=== PATIENT | female | born 1940 | race Caucasian/White ===

== ENCOUNTER 2022-02-25 12:48 | Outpatient (CLI) | payer OTHER, MEDICARE, SELFPAY ==
--- NOTE | 2022-02-25 13:14 | XRR_ITS ---
PROCEDURE INFORMATION: Exam: XR Lumbosacral Spine Exam date and time: 02/25/2022 1:21 PM Age: 81 years old Clinical indication: Pain; Dorslagia; Prior surgery; Surgery type: Back, hips, gb; Additional info: Dorsalgia/chronic back pain TECHNIQUE: Imaging protocol: Radiologic exam of the lumbosacral spine. Views: 4 or 5 views. COMPARISON: CR XR KUB [id number] 05/15/2015 7:46 AM FINDINGS: Bones/joints: There is generalized osteopenia and osteoarthritis. No acute fracture. There is wedge compression fracture involving the T12 vertebral body with kyphoplasty. The superior endplate of the L1 vertebral body also shows a compression fracture. Intervertebral disc space narrowing is present throughout the lumbar spine. Kyphoplasty is seen in the bilateral sacral bones. Incompletely visualized arthroplasty is seen in the bilateral hips. Dorsolumbar levoscoliosis Pradhan angle 15 degrees T11-L3 Soft tissues: Unremarkable. XR/XR lumbar spine min 4V [id number] IMPRESSION: 1. Severe osteopenia and osteoarthritis. 2. Wedge compression fracture T12 vertebral body with kyphoplasty . 3. Compression fracture superior endplate L1. 4. Kyphoplasty bilateral sacral bones. 5. Metallic arthroplasty bilateral hips incompletely visible 6. Dorsolumbar levoscoliosis Pradhan angle 15 degrees
--- NOTE | 2022-02-25 13:14 | XR_ITS ---
WS: [id number] XR thoracic spine 2V [id number] REASON FOR EXAM: CHRONIC BACK PAIN FINDINGS: Relatively normal thoracic spine alignment in the lateral and AP views. Old superior endplate compression deformity of L1. Wedge-shaped compression deformity of T12 with previous vertebral plasty. Mild compression deformity of the superior endplate of T8 and T4. Unknown chronicity. The intervertebral disc spaces from T1 to T11 are relatively well-preserved. XR/XR thoracic spine 2V [id number] IMPRESSION: Thoracic spine compression deformities as above.
== END 2022-02-25 12:49 | disposition home or self-care (01) ==
LOC: RAD 12:57
PROVIDERS: PCP Nurse Practitioner Family; Visit Provider Nurse Practitioner Family
DX: G89.29 Other chronic pain (principal); S22.089A Unspecified fracture of T11-T12 vertebra, initial encounter for closed fracture; M85.88 Other specified disorders of bone density and structure, other site; S32.019A Unspecified fracture of first lumbar vertebra, initial encounter for closed fracture; Z96.643 Presence of artificial hip joint, bilateral; X58.XXXA Exposure to other specified factors, initial encounter
CPT/HCPCS: 72070; 72110

== ENCOUNTER → 2022-04-30 13:28 | Outpatient (BNVA) | payer OTHER, SELFPAY | PROVIDERS: PCP Nurse Practitioner Family; Visit Provider Orthopaedic Surgery | DX: M48.062 Spinal stenosis, lumbar region with neurogenic claudication (principal); M79.643 Pain in unspecified hand; W19.XXXA Unspecified fall, initial encounter | CPT/HCPCS: 73130 ==

== ENCOUNTER 2022-05-10 15:06 | Outpatient (CLI) | payer MEDICARE, SELFPAY ==
--- NOTE | 2022-05-10 15:18 | XRR_ITS ---
PROCEDURE INFORMATION: Exam: XR Right Hand Exam date and time: 05/10/2022 3:22 PM Age: 81 years old Clinical indication: Injury or trauma; Fall; Blunt trauma (contusions or hematomas); Injury details: History--fell at home over 3 weeks ago. Pain since when she uses right hand; Prior surgery; Surgery type: Ganglion; Additional info: Fell at home and injured right hand TECHNIQUE: Imaging protocol: Radiologic exam of the Right hand. Views: 3 or more views. COMPARISON: CR XR hand RT min 3V* [id number] 04/30/2022 1:29 PM FINDINGS: Bones/joints: There is osteoarthritis seen with narrowing of the interphalangeal articulations of multiple digits. No acute bony abnormalities seen. Soft tissues: Normal. XR/XR hand RT min 3V* [id number] IMPRESSION: 1. Moderate osteoarthritis 2. Otherwise No acute bone abnormality
== END 2022-05-10 15:07 | disposition home or self-care (01) ==
LOC: RAD 15:12
PROVIDERS: PCP Nurse Practitioner Family; Visit Provider Nurse Practitioner Family
DX: S69.91XA Unspecified injury of right wrist, hand and finger(s), initial encounter (principal); W19.XXXA Unspecified fall, initial encounter; M19.041 Primary osteoarthritis, right hand
CPT/HCPCS: 73130

== ENCOUNTER 2022-05-16 06:00 | Outpatient (RCR) | payer MEDICARE, SELFPAY | END 2022-05-21 14:52 | disposition home or self-care (01) | LOC: SOT 06:00 | PROVIDERS: PCP Nurse Practitioner Family; Visit Provider Nurse Practitioner Family | DX: M48.00 Spinal stenosis, site unspecified (principal) | CPT/HCPCS: 97167 ==

== ENCOUNTER 2022-07-03 11:48 | Outpatient (CLI) | payer MEDICARE, SELFPAY ==
--- NOTE | 2022-07-03 11:15 | MR_ITS ---
WS: [id number] MRI LUMBAR SPINE NONCONTRAST TECHNIQUE: Sagittal T1, T2 and STIR imaging. Axial T1 and T2 imaging. CLINICAL INFORMATION: back pain, hx of previous back surgeries COMPARISON: MRI 2008 FINDINGS: Mild lumbar curve. No acute compression. Chronic anterior wedging at T12 with prior vertebr oplasty changes. Slight anterolisthesis T11 on T12. Disc bulging at T11-T12 with slight indentation o n the lower thoracic cord and mild central canal stenosis. Moderate bilateral foraminal narrowing. Mild central canal stenosis in the cervical spinal ultrasound applications specialist imaging at C4-C5, C5-C6 and C6-C7. L1-L2: Mild disc bulging with slight effacement of ventral thecal sac. Mild RIGHT and no significant LEFT foraminal narrowing. Slight narrowing of the RIGHT subarticular recess. Mild facet arthropathy. L2-L3: Disc osteophyte complex with endplate ridging. Mild to moderate central canal stenosis. Imping ement traversing L3 nerve roots bilaterally. Mild facet arthropathy. Moderate RIGHT and mild LEFT for aminal narrowing. L3-L4: Disc bulging with a shallow central disc protrusion and impingement on the LEFT subarticular r ecess. Moderate to severe central canal stenosis. Moderate facet arthropathy. LEFT foraminal protrusi on with moderate LEFT and mild RIGHT foraminal narrowing. L4-L5: Disc osteophyte complex endplate ridging. Mild central canal stenosis. Impingement on the agata ersing RIGHT greater than LEFT L5 nerve roots. Moderate LEFT foraminal narrowing. Impingement on the exiting LEFT L4 nerve root. Mild RIGHT foraminal narrowing. L5-S1: Shallow central disc protrusion. Slight impingement traversing S1 nerve roots. Mild central ca nal stenosis. Moderate facet arthropathy. Mild to moderate RIGHT and mild LEFT foraminal narrowing. M oderate facet arthropathy. Adrenal glands are normal. Lobulated lesion lower pole RIGHT kidney is indeterminate. This measures a pproximately 2.1 cm. Neoplasm not excluded. This can be further evaluated with ultrasound. MR/MR lumbar spine wo con* [id number] IMPRESSION: 1. Mild lumbar curve. No acute compression. Chronic anterior wedging at T12 wi th vertebroplasty changes. This is new since 2008. 2. Mild central canal stenosis L1-L2, [id number] L2-L3, and moderate to severe L3-L4 with impingement LEFT subarticular recess at L3-L4. Spinal canal s tenosis is progressed since 2009. 3. Mild central canal stenosis L4-L5 and L5-S1 with prior LEFT L4-L5 hemilamin ectomy. 4. Grade 1 anterolisthesis T11 on T12 with central disc bulging and mild centr al canal stenosis. Moderate bilateral T11-T12 foraminal narrowing. 5. Small RIGHT foraminal protrusion L1-L2 with moderate RIGHT foraminal narrow ing. 6. LEFT foraminal protrusion L3-L4 with moderate LEFT foraminal narrowing. 7. LEFT foraminal protrusion L4-L5 with moderate LEFT foraminal narrowing and impingement on the exiting LEFT L4 nerve root. 8. Shallow central protrusion L5-S1 impinges the traversing S1 nerve roots. Mi ld to moderate RIGHT and mild LEFT foraminal narrowing at this level. 9. Lobulated lesion lower pole RIGHT kidney is indeterminate. This measures ap proximately 2.1 cm. Neoplasm not excluded. Recommend further evaluation with ul sherry.
== END 2022-07-03 11:49 | disposition home or self-care (01) ==
LOC: RAD 11:49
PROVIDERS: PCP Nurse Practitioner Family; Visit Provider Orthopaedic Surgery
DX: M54.9 Dorsalgia, unspecified (principal)
CPT/HCPCS: 72148

== ENCOUNTER → 2022-07-04 09:52 | Outpatient (BNVA) | payer MEDICARE, SELFPAY | PROVIDERS: PCP Nurse Practitioner Family; Visit Provider Orthopaedic Surgery | DX: M48.062 Spinal stenosis, lumbar region with neurogenic claudication (principal) | CPT/HCPCS: 99214 ==

== ENCOUNTER 2022-08-02 07:07 | Day surgery (SDC) | payer MEDICARE, SELFPAY ==
--- NOTE | 2022-07-30 08:19 | ECG_ITS ---
[facility] Test Date: 2022-07-30 Pat Name: Taylor Beaver Department: Room: Gender: Female [employer] T[employer]: : 1940 Requested By: José Turcios Order Number: [id number] Bhakti MD: Agusto Mills M.D. Measurements Intervals Roy Rate: 62 P: 66 VT: 158 QRS: 65 QRSD: 98 T: 80 QT: 422 QTc: 430 Interpretive Statements SINUS RHYTHM NONSPECIFIC T-WAVE ABNORMALITY No previous ECG available for comparison Electronically Signed On 07-30-2022 11:45:42 FOOD SAFETY TECHNICIAN by Agusto Mills M.D. [id number]
[2022-07-30 08:22] VITALS: BMI 24.2
[2022-07-30 09:32] LABS: Basophils # 0.1 10^3/uL (0.0-0.1); Basophils % 0.8 %; Eosinophils # 0.4 10^3/uL (0.0-0.8); Eosinophils % 6.3 %; Hematocrit 39.7 % (37.0-47.0); Hemoglobin 12.3 g/dL (11.5-15.3); Lymphocytes # 2.7 10^3/uL (0.8-4.8); Lymphocytes % 43.6 %; Mean Corpuscular Hemoglobin 30.4 pg (28.0-34.0); Mean Corpuscular Volume 98.3 fl (81-99); Monocytes # 0.6 10^3/uL (0.2-0.9); Monocytes % 9.1 %; Neutrophils # 2.46 10^3/uL (1.8-7.7); Neutrophils % 39.9 %; Nucleated Red Blood Cells % 0 %; Platelet Count 184 10^3/cmm (130-400); Red Blood Count 4.04 10^6/uL (4.1-5.3); Red Cell Distribution Width 14.6 % (12.1-15.1); White Blood Count 6.2 10^3/uL (4.0-10.0)
--- NOTE | 2022-07-30 10:01 | P.ANESASSM_ITS ---
Pre-Anesthetic Assessment Height/Weight: Height 1.68 m Weight 68.039 kg Operation Date: 08/02/22 09:05 Proposed Procedures p Lumbar Spine Decompression:LT L3/4 37646(Left) - Celestine Tapia DO Familial anesthetic complications: none Was Beta Samuel taken within 24 hours: Yes Was Clonidine taken within 24 hours: N/A Social No alcohol and No tobacco Exam alert, oriented x 3, clear to auscultation bilaterally and regular rate & rhythm Airway Submandibular: within normal limits Cervical ROM: within normal limits Mallampati: Class II Dentition: false CV/HEM Coronary Artery Disease (stents) and Hypertension GI Gastroesophageal Reflux Disease Metabolic Thyroid Disease [facility] Lower Back Pain Anesthetic Plan ASA status: 3 Anesthesia: General Medications/Allergies Home Medications Medication Instructions Recorded Confirmed Last Taken Type aspirin 81 mg tablet,delayed 81 mg PO DAILY 04/30/22 07/30/22 1 Day Ago History release ~07/29/22 atorvastatin 40 mg tablet 40 mg PO DAILY 04/30/22 07/30/22 1 Day Ago History ~07/29/22 carvedilol 3.125 mg tablet 3.125 mg PO BID 04/30/22 07/30/22 1 Day Ago History ~07/29/22 levothyroxine 100 mcg capsule 100 mcg PO DAILY 04/30/22 07/30/22 1 Day Ago History ~07/29/22 metoprolol tartrate 25 mg tablet 12.5 mg PO BID 04/30/22 07/30/22 1 Day Ago History ~07/29/22 pantoprazole 40 mg tablet,delayed 40 mg PO DAILY 04/30/22 07/30/22 1 Day Ago History release ~07/29/22 sertraline 200 mg capsule 200 mg PO DAILY 04/30/22 07/30/22 1 Day Ago History ~07/29/22 Allergies Allergy/AdvReac Type Severity Reaction Status Date / Time No Known Allergies Allergy Verified 07/30/22 08:12 Data Anesthesia 07/30/22 08:50 Short CBC 07/30/22 Range/Units 08:50 WBC 6.2 (4.0-10.0) 10^3/uL Hgb 12.3 (11.5-15.3) g/dL Hct 39.7 (37.0-47.0) % MCV 98.3 (81-99) fl Plt Count 184 (130-400) 10^3/cmm Neut % (Auto) 39.9 % Neut # (Auto) 2.46 (1.8-7.7) 10^3/uL Cardiac Studies: No Data to Display
[2022-08-02] VITALS (11 sets, daily range): BP systolic 120–189; BP diastolic 61–95; PULSE 71–96; RESP 16–20; TEMP 36.1–36.9; O2SAT 90–100
--- NOTE | 2022-08-02 07:46 | P.ANESUD_ITS ---
Pre-Anesthetic Update Pre-Anesthetic Assessment: Date of Surgery/Procedure: 08/02/22 Preop Almaz gnosis: Lumbar stenosis Proposed Procedure: Operation Date: 08/02/22 09:05 Proposed Procedures p Lumbar Spine Decompression:LT L3/4 17031(Left) - Celestine Tapia, DO Any changes to Pre-Anesthetic Assessment?: No Last Intake: Intake Last Liquid Date 08/01/22 Last Liquid Time 20:30 Last Solid Date 08/01/22 Last Solid Time 20:30 Vitals: Temperature 97.8 F 08/02/22 07:28 Temperature Source Temporal Artery S can 08/02/22 07:28 Pulse Rate 71 08/02/22 07:28 Respiratory Rate 18 08/02/22 07:28 Blood Pressure 140/79 08/02/22 07:28 Blood Pressure Stacye n 99 08/02/22 07:28 Pulse Oximetry 93 08/02/22 07:28 Oxygen Delivery Me thod 08/02/22 07:28 Exam: Pre-Anes Outpt Exam: alert, oriented x 3, clear to auscultation bilaterally and regular rate & rhythm Cardiac Studies: No Data to Display
[2022-08-02] MEDS: sodium chloride 0.9% 1,000 ML 30 ML IV (07:53)
--- NOTE | 2022-08-02 08:13 | W.PM.OPSUD ---
Surgery/Procedure H&P Update DATE OF PROCEDURE: August 02, 2022 DATE H&P PERFORMED: 07/04/22 H&P UPDATE INFORMATION: I have reviewed H&P completed within last 30 days, I have examined patient prior to procedure and No changes to prior documentation PREOP DIAGNOSIS: Lumbar stenosis PLANNED PROCEDURE: Operation Date: 08/02/22 09:05 Proposed Procedures p Lumbar Spine Decompression:LT L3/4 89811(Left) - Celestine Tapia DO
[2022-08-02] MEDS: ceFAZolin 2,000 MG in sodium chloride 0.9% (plus) 50 ML 100 MG IV (08:35)
--- NOTE | 2022-08-02 09:36 | XR_ITS ---
WS: [id number] Lumbar spine, C-arm fluoroscopy, 08/02/2022 Clinical Data: OR PICS Comparison: None. Findings: Dr. Tapia performed a lumbar decompression XR/XR lumbar spine 1V [id number] Impression: Lumbar decompression.
[2022-08-02] MEDS: fentaNYL 50 mcg/mL INJ 2mL IVP (09:44)
--- NOTE | 2022-08-02 10:03 | PM.OP ---
Operative Report Date of procedure: August 02, 2022 Pre-op diagnosis: Preop Diagnosis Lumbar stenosis with neurogenic claudication Post-op diagnosis: same Procedure done: 1. L3/4 laminectomy with partial facetectomies Surgeon: Celestine Tapia Certified Family Mediator: none Estimated blood loss (mL): 5 Procedure: 1. L3/4 laminectomy with partial facetectomies Patient is brought to the operative suite. After undergoing anesthesia they are placed in the prone position. All areas of impingement are well padded. Patient is then prepped and draped in the normal sterile fashion. A skin incision is made over the L3/4 level. This is confirmed under c-arm guidance. A series of dilators are passed and the tubular retractor is docked on the L3 lamina. A bovie is used to clear the soft tissue off the lamina and the L 3/4 facet joint. A high speed mary is then used to perform the laminectomy and take down the medial aspect of the L 3/4 facet joint. A kerrison rongeure was then used to take down the remaining lamina and smooth the edged of the laminectomy up to the point where the ligamentum flavum attaches. Attention was then brought to the medial aspect of the facet joint. The remaining medial aspect of the superior and inferior aspect of the facet joint were taken down with the kerrison from the pedicle of L3 to L 4. The facet joint had significant hypertrophy. Attention was then brought to the Ligamentum Flavum. The ligament was taken down from the lamina of L3 to L4 and out medially to the remaining facet joint. The ligament was thick and calcified. The dura was then exposed. The dura was in good repair. The L3 nerve was then traced with a curette out the L3/4 foramen and found to be adequately decompressed. The L4 nerve was traced with a curette around the L4 pedicle. The lateral recess was opened with a kerrison helping to further decompress the L4 nerve. The tubular retractor was then tilted to the contralateral side. The bovie was used to take down the soft tissue on the spinous process. The high speed mary was used to take down the spinous process and then the contralateral lamina of L3. The kerrison rongeur was used to take down the remaining lamina to the point where the ligamentum flavum attached and the ligamentum flavum was taken down from L3 to L4. The kerrison rongeur was then used to reach across and take down the medial aspect of the contralateral L3/4 facet joint.The currete was used to trace the contralateral L3 nerve out the L3/4 foramen to make sure it was decompressed adequatesly and the L4 was traced around the L4 pedicle. The lateral recess was opened further with the kerrison to ensure the L4 is adequately decompressed. Wound is then irrigated copiously with saline and surgiflo is used to stop any bleeding. The tubular retractor is removed and the wound is closed with vicryl and monocryl suture. Glue is then used to protect the wound. A sterile dressing is then placed. Patient was then placed in the supine position and transferred to the PACU in stable condition.
[2022-08-02] MEDS: HYDROcodone-acetaminophen 5-325 mg Tablet 2 TAB PO (10:48)
--- NOTE | 2022-08-02 14:21 | ANE.PACU2 ---
Inpatient post-anesthesia follow up: Airway intact: Yes Vital signs: Temperature 98.4 F Pulse Rate 82 Respiratory Rate 18 Blood Pressure 120/61 Pulse Oximetry 94 Oxygen Delivery Me thod Room Air Oxygen Flow Rate 6 Fraction of Inspir ed Oxygen Hydration adequate: Yes Nausea and vomiting: No Pain level: 3 Mental status: Baseline
== END 2022-08-02 11:25 | disposition home or self-care (01) ==
PROVIDERS: Anesthesiology; PCP Nurse Practitioner Family; Visit Provider Orthopaedic Surgery
PROC: (CPT 63005; principal; 2022-08-02 08:35)
DX: M48.062 Spinal stenosis, lumbar region with neurogenic claudication (principal); I25.10 Atherosclerotic heart disease of native coronary artery without angina pectoris; Z95.5 Presence of coronary angioplasty implant and graft; I10 Essential (primary) hypertension; K21.9 Gastro-esophageal reflux disease without esophagitis; Z79.82 Long term (current) use of aspirin
CPT/HCPCS: 63047; 36415; 72020; 76000; 85025; 93005; J0690; J1100; J2250; J2405; J2704; J3010; J3490; J7030

== ENCOUNTER 2022-08-04 05:15 | Inpatient (IN) | payer MEDICARE, SELFPAY ==
[2022-08-04] VITALS (13 sets, daily range): BP systolic 130–174; BP diastolic 76–95; PULSE 85–96; RESP 14–18; TEMP 36.4–36.9; O2SAT 91–97; BMI 24.2; BMI 25.1
--- NOTE | 2022-08-04 05:19 | XRR_ITS ---
PROCEDURE INFORMATION: Exam: XR Left Hip Exam date and time: 08/04/2022 5:40 AM Age: 82 years old Clinical indication: Hip pain; Left hip; Prior surgery; Surgery date: 6+ months; Surgery type: Metal from hip to knee; Additional info: Injury TECHNIQUE: Imaging protocol: Radiologic exam of the Left hip. Views: 2 or 3 views hip with pelvis when performed. COMPARISON: CR XR lumbar spine min 4V [id number] 02/25/2022 1:21 PM FINDINGS: Bones/joints: Status post bipolar left hip replacement. Large femoral stem is seen extending through the left femoral diaphysis. The patient is status post total left knee replacement as well. There is evidence of a healed midshaft fracture of the left femur. There is diffuse demineralization. Soft tissues: Unremarkable. XR/XR hip LT 2-3V wo/w pel* [id number] IMPRESSION: 1. There are no acute osseous findings.
--- NOTE | 2022-08-04 05:20 | W.ED.EXTPRO ---
Documented by User: Candace Lopez MD 08/04/22 18:08 HPI - Extremity Problem General: Chief complaint: Extremity Injury, Lower Stated complaint: HIP PAIN Time Seen by Provider: 08/04/22 05:16 Source: patient and EMS Mode of arrival: EMS Limitations: no limitations History of Present Illness: 82-year-old female who had had back surgery on Friday she is also had a hip replacement on the her left hip in the past states that she had been up ambulating yesterday and think she may have overdid it started having severe left hip pain tonight. She states the pain is sharp in nature much worse with any movement she is unable to ambulate on it currently she did receive fentanyl in route states it did help her pain some. She denies any back pain or fevers Associated symptoms: Deny chest pain, fever(s) or rash Review of Systems Const: Denies: fever(s), chills, body aches or change in appetite Eyes: Denies: blurry vision or eye discomfort ENMT: Denies: throat pain or dental pain Card: Denies: chest pain Resp: Denies: dyspnea GI: Denies: abdominal pain, nausea, vomiting or diarrhea : Denies: dysuria Musc: Reports: extremity pain Skin/Breast: Denies: rash Neuro: Denies: headache(s) Psych: Denies: depression Brayden/Lymph: Denies: easy bruising All/Imm: Denies: urticaria PFSH ED PFSH: Medical History (Updated 08/04/22 @ 18:08 by Candace Lopez MD) History of CAD (coronary artery disease) History of depression History of hyperlipidemia History of hypertension History of hypothyroidism History of nephrolithiasis History of type 2 diabetes mellitus Lumbar stenosis with neurogenic claudication Surgical History (Updated 08/04/22 @ 11:11 by Papa Beal MD) History of back surgery History of heart artery stent History of left hip replacement Family History (Updated 08/04/22 @ 11:07 by Papa Beal MD) Mother CAD (coronary artery disease) Social History (Updated 08/04/22 @ 11:07 by Papa Beal MD) Smoking and tobacco status: never smoked Alcohol intake: never Substance/Drug Use: never Physical Exam Const: COMMON NORMALS: patient oriented x3 HENMT: COMMON NORMALS: normocephalic and atraumatic HEAD & SCALP: normocephalic and atraumatic Eye: COMMON NORMALS: Equal, round and reactive pupils present and EOMs intact bilaterally PUPIL: Yes Equal, round and reactive pupils present Neck/C-Spine: COMMON NORMALS: full ROM and supple Chest: COMMONS NORMALS: normal inspection of the chest and normal palpation of entire chest wall Resp: COMMON NORMALS: normal respiratory effort, No retractions, No use of accessory muscles and clear to auscultation bilaterally AUSCULTATION: clear to auscultation bilaterally Cardio: COMMON NORMALS: regular rate, regular rhythm and No murmurs present (Cardio) RATE: regular rate RHYTHM: regular rhythm GI: COMMON NORMALS: Normal to inspection, nondistended, normoactive bowel sounds present, Soft to palpation, non-tender and no masses PALPATION: Yes Soft to palpation Back/Pelvis: OTHER: incision to low back is cdi Extremity: NARRATIVE EXTREMITY EXAM: tenderness to left hip Neuro: COMMON NORMALS: patient oriented x3, moves all extremities and no focal motor deficits Psych: COMMON NORMALS: mental status grossly normal, Normal thought process present and cooperative THOUGHT PROCESS: Normal thought process present Skin: COMMON NORMALS: no rashes or lesions noted and no wounds GENERAL SKIN EXAM: no rashes or lesions noted Course Vital Signs: Vital signs: Vital Signs Temperature 97.6 F 08/04/22 16:21 Pulse Rate 91 08/04/22 16:21 Respiratory Rate 14 08/04/22 16:21 Blood Pressure 130/76 08/04/22 16:21 Pulse Oximetry 91 08/04/22 16:21 Oxygen Delivery Me thod 08/04/22 15:41 Oxygen Flow Rate 2 08/04/22 14:24 MDM - Extremity (Nontraumatic) Lab Data 08/04/22 05:20 08/04/22 05:20 Radiology Impressions Hip/Pelvis X-Ray 08/04/22 05:19 IMPRESSION: 1. There are no acute osseous findings. Hip CT 08/04/22 05:56 IMPRESSION: 1. Left hip arthroplasty with long stem endo femoral component. 2. Profound osteopenia. 3. Marked expansion the medullary space between the bone prosthesis interface which could be due to long-term bone demineralization and or combination component loosening. 4. 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 5. Lucency within multiple areas of thin cortical bone at the proximal diaphysis which although could reflect subtle areas of cortical fracture could also be due to profound bone absence and distinction would be difficult. On the basis of appearance, the patient is likely at high risk for displaced fracture injury. Lumbar Spine CT 08/04/22 05:56 IMPRESSION: 1. Oval elongated spinal canal clustered collection of gas and or fluid at the operative site of the laminectomy defect at L3 and posterior to the thecal sac within the spinal canal at L3 and L3-L4. While findings could be postoperative reflecting a component of postoperative hemorrhage or fluid infectious etiology or abscess would not be excluded. Depending on the clinical scenario MRI with gadolinium is recommended. 2. Laminectomy defect at L3 on the left. 3. Diffuse posterior paraspinal and subcutaneous soft tissue ill-defined fluid and soft tissue stranding changes with a small collection of gas in the subcutaneous soft tissue space at a level of L2-L3. 4. Relatively stable numerous wedge and compression deformities of T12 and the lumbar spine as compared to recent MRI. 5. Advanced degenerative changes throughout the lumbar spine with multilevel moderate to severe canal stenosis. ADDENDUM: 08/04/22 0916 THIS REPORT CONTAINS FINDINGS THAT MAY BE CRITICAL TO PATIENT CARE. The findings were verbally communicated via telephone conference with Dr. Davidson by Dr. Tai on 08/04/2022 9:14 AM GLOVE BRUSHER. The results were acknowledged and understood. Lumbar Spine MRI 08/04/22 10:42 IMPRESSION: Postoperative changes as above. Operative site small left posterior extradural nonspecific fluid collection (secondary left lateral recess and spinal canal stenosis) without specific evidence of infection. Contrast-enhanced imaging might add additional useful information if clinically needed. Multilevel spinal stenosis. Neural foraminal stenoses as above. Please see additional findings as above. Venous Duplex 08/04/22 10:47 IMPRESSION: No evidence of deep vein thrombosis. Renal Ultrasound 08/04/22 10:59 IMPRESSION: Moderate left pelvicaliectasis/hydronephrosis Laboratory Results WBC 8.3 10^3/uL (4.0-10.0) 08/04/22 05:20 RBC 3.94 10^6/uL (4.1-5.3) L 08/04/22 05:20 Hgb 12.0 g/dL (11.5-15.3) 08/04/22 05:20 Hct 39.1 % (37.0-47.0) 08/04/22 05:20 MCV 99.2 fl (81-99) H 08/04/22 05:20 MCH 30.5 pg (28.0-34.0) 08/04/22 05:20 MCHC 30.7 g/dL (30.0-36.0) 08/04/22 05:20 RDW 14.7 % (12.1-15.1) 08/04/22 05:20 Plt Count 147 10^3/cmm (130-400) 08/04/22 05:20 MPV 10.6 fL (7.4-10.4) H 08/04/22 05:20 Neut % (Auto) 64.3 % 08/04/22 05:20 Lymph % (Auto) 21.0 % 08/04/22 05:20 [place] % (Auto) 10.6 % 08/04/22 05:20 Eos % (Auto) 3.5 % 08/04/22 05:20 Baso % (Auto) 0.2 % 08/04/22 05:20 Neut # (Auto) 5.31 10^3/uL (1.8-7.7) 08/04/22 05:20 Lymph # (Auto) 1.7 10^3/uL (0.8-4.8) 08/04/22 05:20 [place] # (Auto) 0.9 10^3/uL (0.2-0.9) 08/04/22 05:20 Eos # (Auto) 0.3 10^3/uL (0.0-0.8) 08/04/22 05:20 Baso # (Auto) 0.0 10^3/uL (0.0-0.1) 08/04/22 05:20 Nucleated RBC % (auto) 0 % 08/04/22 05:20 Nucleated RBCs # 0.0 /100WBC 08/04/22 05:20 ESR 57 mm/hr (0-15) H 08/04/22 05:20 Sodium 135 mmol/L (136-145) L 08/04/22 05:20 Potassium 3.7 mmol/L (3.5-5.1) 08/04/22 05:20 Chloride 101 mmol/L (98-107) 08/04/22 05:20 Carbon Dioxide 23 mmol/L (22-29) 08/04/22 05:20 Anion Gap 14.7 (5-19) 08/04/22 05:20 BUN 9 mg/dL (8-23) 08/04/22 05:20 Creatinine 0.7 mg/dL (0.5-0.9) 08/04/22 05:20 GFR Calculation Not Reportable 08/04/22 05:20 Glucose 114 mg/dL (65-115) 08/04/22 05:20 Calculated Osmolality 280 mOsm/kg (285-295) L 08/04/22 05:20 Calcium 8.8 mg/dL (8.5-10.5) 08/04/22 05:20 Ferritin 120 ng/mL (15-150) 08/04/22 05:20 Total Bilirubin 0.7 mg/dL (0.15-1.2) 08/04/22 05:20 AST 27 U/L (0-32) 08/04/22 05:20 ALT 17 U/L (0-33) 08/04/22 05:20 Alkaline Phosphatase 97 U/L (35-105) 08/04/22 05:20 Creatine Kinase 93 U/L (26-192) 08/04/22 05:20 C-Reactive Protein 71.7 mg/L (0.0-4.9) H 08/04/22 05:20 Total Protein 7.1 g/dL (6.6-8.7) 08/04/22 05:20 Albumin 3.9 g/dL (3.5-5.2) 08/04/22 05:20 Globulin 3.2 g/dL (1.3-4.6) 08/04/22 05:20 Procalcitonin 0.11 ng/mL (0-0.5) 08/04/22 05:20 TSH 4.04 uIU/mL (0.27-4.20) 08/04/22 05:20 Discharge Plan Discharge Patient Disposition: Admitted As Inpatient Admit Provider: Papa Beal Clinical Impression: Acute pain of left hip Condition: Stable Coding Level of Care Code ED Winchman/Crane Operator for Chg Fwd Documented by User: Gilmer Davidson MD 08/04/22 11:57 HPI - Extremity Problem General: Chief complaint: Extremity Injury, Lower Stated complaint: HIP PAIN Time Seen by Provider: 08/04/22 05:16 PFSH ED PFSH: Medical History (Updated 08/04/22 @ 18:08 by Candace Lopez MD) History of CAD (coronary artery disease) History of depression History of hyperlipidemia History of hypertension History of hypothyroidism History of nephrolithiasis History of type 2 diabetes mellitus Lumbar stenosis with neurogenic claudication Surgical History (Updated 08/04/22 @ 11:11 by Papa Beal MD) History of back surgery History of heart artery stent History of left hip replacement Family History (Updated 08/04/22 @ 11:07 by Papa Beal MD) Mother CAD (coronary artery disease) Social History (Updated 08/04/22 @ 11:07 by Papa Beal MD) Smoking and tobacco status: never smoked Alcohol intake: never Substance/Drug Use: never Course Vital Signs: Vital signs: Vital Signs Temperature 97.6 F 08/04/22 16:21 Pulse Rate 91 08/04/22 16:21 Respiratory Rate 14 08/04/22 16:21 Blood Pressure 130/76 08/04/22 16:21 Pulse Oximetry 91 08/04/22 16:21 Oxygen Delivery Me thod 08/04/22 15:41 Oxygen Flow Rate 2 08/04/22 14:24 MDM - Extremity (Nontraumatic) Medical Decision Making 82-year-old female with hip pain in setting of recent back surgery. Vitals nonactionable. Pain poorly controlled in the emergency department requiring serial doses of intravenous narcotic medications. Unable to ambulate at time of discharge. Medicine consulted for admission as patient for facilitation of PT OT consultation and pain management. Spine surgery and Ortho on-call consulted about this patient. Spine surgery believe postoperative changes seen on CT are related to the surgery rather than new infectious or noninfectious process requiring spine intervention. Spine surgeon did not visualize CT radiography and relied on me reading him the results of the findings. Furthermore consulted on-call orthopedist about hip pain. On-call orthopedist recommends bone scan. Other findings are as encounter nonactionable. Patient admitted to Dr. Stokes for further evaluation and treatment. Lab Data 08/04/22 05:20 08/04/22 05:20 Radiology Impressions Hip/Pelvis X-Ray 08/04/22 05:19 IMPRESSION: 1. There are no acute osseous findings. Hip CT 08/04/22 05:56 IMPRESSION: 1. Left hip arthroplasty with long stem endo femoral component. 2. Profound osteopenia. 3. Marked expansion the medullary space between the bone prosthesis interface which could be due to long-term bone demineralization and or combination component loosening. 4. 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 5. Lucency within multiple areas of thin cortical bone at the proximal diaphysis which although could reflect subtle areas of cortical fracture could also be due to profound bone absence and distinction would be difficult. On the basis of appearance, the patient is likely at high risk for displaced fracture injury. Lumbar Spine CT 08/04/22 05:56 IMPRESSION: 1. Oval elongated spinal canal clustered collection of gas and or fluid at the operative site of the laminectomy defect at L3 and posterior to the thecal sac within the spinal canal at L3 and L3-L4. While findings could be postoperative reflecting a component of postoperative hemorrhage or fluid infectious etiology or abscess would not be excluded. Depending on the clinical scenario MRI with gadolinium is recommended. 2. Laminectomy defect at L3 on the left. 3. Diffuse posterior paraspinal and subcutaneous soft tissue ill-defined fluid and soft tissue stranding changes with a small collection of gas in the subcutaneous soft tissue space at a level of L2-L3. 4. Relatively stable numerous wedge and compression deformities of T12 and the lumbar spine as compared to recent MRI. 5. Advanced degenerative changes throughout the lumbar spine with multilevel moderate to severe canal stenosis. ADDENDUM: 08/04/22 0916 THIS REPORT CONTAINS FINDINGS THAT MAY BE CRITICAL TO PATIENT CARE. The findings were verbally communicated via telephone conference with Dr. Davidson by Dr. Tai on 08/04/2022 9:14 AM GLOVE BRUSHER. The results were acknowledged and understood. Lumbar Spine MRI 08/04/22 10:42 IMPRESSION: Postoperative changes as above. Operative site small left posterior extradural nonspecific fluid collection (secondary left lateral recess and spinal canal stenosis) without specific evidence of infection. Contrast-enhanced imaging might add additional useful information if clinically needed. Multilevel spinal stenosis. Neural foraminal stenoses as above. Please see additional findings as above. Venous Duplex 08/04/22 10:47 IMPRESSION: No evidence of deep vein thrombosis. Renal Ultrasound 08/04/22 10:59 IMPRESSION: Moderate left pelvicaliectasis/hydronephrosis Laboratory Results WBC 8.3 10^3/uL (4.0-10.0) 08/04/22 05:20 RBC 3.94 10^6/uL (4.1-5.3) L 08/04/22 05:20 Hgb 12.0 g/dL (11.5-15.3) 08/04/22 05:20 Hct 39.1 % (37.0-47.0) 08/04/22 05:20 MCV 99.2 fl (81-99) H 08/04/22 05:20 MCH 30.5 pg (28.0-34.0) 08/04/22 05:20 MCHC 30.7 g/dL (30.0-36.0) 08/04/22 05:20 RDW 14.7 % (12.1-15.1) 08/04/22 05:20 Plt Count 147 10^3/cmm (130-400) 08/04/22 05:20 MPV 10.6 fL (7.4-10.4) H 08/04/22 05:20 Neut % (Auto) 64.3 % 08/04/22 05:20 Lymph % (Auto) 21.0 % 08/04/22 05:20 [place] % (Auto) 10.6 % 08/04/22 05:20 Eos % (Auto) 3.5 % 08/04/22 05:20 Baso % (Auto) 0.2 % 08/04/22 05:20 Neut # (Auto) 5.31 10^3/uL (1.8-7.7) 08/04/22 05:20 Lymph # (Auto) 1.7 10^3/uL (0.8-4.8) 08/04/22 05:20 [place] # (Auto) 0.9 10^3/uL (0.2-0.9) 08/04/22 05:20 Eos # (Auto) 0.3 10^3/uL (0.0-0.8) 08/04/22 05:20 Baso # (Auto) 0.0 10^3/uL (0.0-0.1) 08/04/22 05:20 Nucleated RBC % (auto) 0 % 08/04/22 05:20 Nucleated RBCs # 0.0 /100WBC 08/04/22 05:20 ESR 57 mm/hr (0-15) H 08/04/22 05:20 Sodium 135 mmol/L (136-145) L 08/04/22 05:20 Potassium 3.7 mmol/L (3.5-5.1) 08/04/22 05:20 Chloride 101 mmol/L (98-107) 08/04/22 05:20 Carbon Dioxide 23 mmol/L (22-29) 08/04/22 05:20 Anion Gap 14.7 (5-19) 08/04/22 05:20 BUN 9 mg/dL (8-23) 08/04/22 05:20 Creatinine 0.7 mg/dL (0.5-0.9) 08/04/22 05:20 GFR Calculation Not Reportable 08/04/22 05:20 Glucose 114 mg/dL (65-115) 08/04/22 05:20 Calculated Osmolality 280 mOsm/kg (285-295) L 08/04/22 05:20 Calcium 8.8 mg/dL (8.5-10.5) 08/04/22 05:20 Ferritin 120 ng/mL (15-150) 08/04/22 05:20 Total Bilirubin 0.7 mg/dL (0.15-1.2) 08/04/22 05:20 AST 27 U/L (0-32) 08/04/22 05:20 ALT 17 U/L (0-33) 08/04/22 05:20 Alkaline Phosphatase 97 U/L (35-105) 08/04/22 05:20 Creatine Kinase 93 U/L (26-192) 08/04/22 05:20 C-Reactive Protein 71.7 mg/L (0.0-4.9) H 08/04/22 05:20 Total Protein 7.1 g/dL (6.6-8.7) 08/04/22 05:20 Albumin 3.9 g/dL (3.5-5.2) 08/04/22 05:20 Globulin 3.2 g/dL (1.3-4.6) 08/04/22 05:20 Procalcitonin 0.11 ng/mL (0-0.5) 08/04/22 05:20 TSH 4.04 uIU/mL (0.27-4.20) 08/04/22 05:20 Discharge Plan Discharge Patient Disposition: Admitted As Inpatient Admit Provider: Papa Beal Clinical Impression: Acute pain of left hip Condition: Stable Coding Level of Care Code ED Winchman/Crane Operator for Mariano Fritz
[2022-08-04] MEDS: ondansetron 2 mg/ML SDV 2 mL 4 MG IVP (05:27)
[2022-08-04] MEDS: morphine 4 mg/mL SDV 1 mL IVP (05:30)
[2022-08-04 05:42] LABS: Basophils % 0.2 %; Eosinophils # 0.3 10^3/uL (0.0-0.8); Eosinophils % 3.5 %; Hematocrit 39.1 % (37.0-47.0); Lymphocytes # 1.7 10^3/uL (0.8-4.8); Mean Corpuscular HGB Conc 30.7 g/dL (30.0-36.0); Mean Corpuscular Hemoglobin 30.5 pg (28.0-34.0); Mean Corpuscular Volume 99.2 fl (81-99); Mean Platelet Volume 10.6 fL (7.4-10.4); Monocytes # 0.9 10^3/uL (0.2-0.9); Monocytes % 10.6 %; Neutrophils # 5.31 10^3/uL (1.8-7.7); Neutrophils % 64.3 %; Nucleated Red Blood Cells % 0 %; Platelet Count 147 10^3/cmm (130-400); Red Blood Count 3.94 10^6/uL (4.1-5.3); Red Cell Distribution Width 14.7 % (12.1-15.1); White Blood Count 8.3 10^3/uL (4.0-10.0)
--- NOTE | 2022-08-04 05:56 | CTR_ITS ---
PROCEDURE INFORMATION: Exam: CT Left Lower Extremity Without Contrast, Hip Exam date and time: 08/04/2022 7:28 AM Age: 82 years old Clinical indication: Pain; Left; Prior surgery; Surgery date: 6+ months; Surgery type: Lt hip lt knee and back; Additional info: Hip pian TECHNIQUE: Imaging protocol: CT of the Left lower extremity without contrast was performed. Exam focused on the hip. Radiation optimization: All CT scans at this facility use at least one of these dose optimization techniques: automated exposure control; mA and/or kV adjustment per patient size (includes targeted exams where dose is matched to clinical indication); or iterative reconstruction. Other protocol: This patient has received 0 known CTs and 0 known cardiac nuclear medicine studies in the 12 months prior to the current study. COMPARISON: CR (PELVIS, ) 08/04/2022 5:40 AM RADIATION DOSE METRICS: Total DLP (mGy-cm): 438.41 FINDINGS: Tubes, catheters and devices: Left hip arthroplasty with long stem endo femoral component and multiple cerclage wires at the proximal femoral diaphysis. The acetabular component shows nonspecific lucency surrounding screws superiorly at the superior acetabulum. There is cortical lucency laterally at the femoral diaphysis between the upper 1st and 2nd cerclage wire which is probably on the basis a chronic residual lucency at a fracture deformity with bone margins relatively corticated and is unlikely acutely traumatic. The distal prosthesis is not entirely included. Bones/joints: Chronic healed fracture deformity of the left inferior pubic ramus. Prominent elongated lucency surrounding at the bone and a femoral prosthesis. There is eccentric positioning of the upper intramedullary prosthesis posteriorly and significant posterior cortical bone thinning and partial absence. Small areas of lucency within the posterior cortex at a level of the proximal femoral diaphysis which would be difficult to ascertain as acute subtle areas of cortical fracture or normal appearance in the setting of severe cortical bone thinning. Soft tissues: Soft tissue vascular calcification. Soft tissue expansion and accentuation at the hip joint with effusion. Urinary bladder: Prominent bladder distension. CT/CT hip LT wo con* [id number] IMPRESSION: 1. Left hip arthroplasty with long stem endo femoral component. 2. Profound osteopenia. 3. Marked expansion the medullary space between the bone prosthesis interface which could be due to long-term bone demineralization and or combination component loosening. 4. 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 5. Lucency within multiple areas of thin cortical bone at the proximal diaphysis which although could reflect subtle areas of cortical fracture could also be due to profound bone absence and distinction would be difficult. On the basis of appearance, the patient is likely at high risk for displaced fracture injury.
--- NOTE | 2022-08-04 05:56 | CTR_ITS ---
PROCEDURE INFORMATION: Exam: CT Lumbar Spine With Contrast Exam date and time: 08/04/2022 7:33 AM Age: 82 years old Clinical indication: Low back pain; Prior surgery; Surgery date: 3-7 days post-operative; Surgery type: Surgery on Friday on back. Pain in left leg. Lt hip and lt knee surgery over a year ago; Additional info: Post op TECHNIQUE: Imaging protocol: Computed tomography of the lumbar spine with contrast. Radiation optimization: All CT scans at this facility use at least one of these dose optimization techniques: automated exposure control; mA and/or kV adjustment per patient size (includes targeted exams where dose is matched to clinical indication); or iterative reconstruction. Contrast material: OMNI 350; Contrast volume: 100 ml; Contrast route: INTRAVENOUS (IV); Other protocol: This patient has received [address] and 0 known cardiac nuclear medicine studies in the 12 months prior to the current study. COMPARISON: MR lumbar spine wo con* [id number] 07/03/2022 12:42 PM RADIATION DOSE METRICS: Total DLP (mGy-cm): 576.6 FINDINGS: Bones/joints: Osteopenia. Advanced degenerative hypertrophic formation and facet arthritis throughout. Moderate wedge compression deformity of T12 with high-density material. Prominent superior endplate concavity and compression deformity of L1 and minor compression of L3 and wedge compression of L4 all similar to prior MRI of 07/03/2022. Subcutaneous paraspinal small collection of gas superficial to the spinous process of L2. Elongated subcutaneous soft tissue stranding density or fluid throughout the lumbar levels and prominent paraspinal soft tissue stranding edema, ill-defined fluid or cellulitis. There is a clustered collection of gas within the spinal canal posteriorly and midportion which extends from a level of the mid to lower level L3 through the upper posterior level of the margin of L4. There is additional gas collection at the laminectomy defect on the left at L 3. Hyperdense material within the sacral ala bilaterally with partial extension at the anterior bone margin greater on the left and partial involvement at the sacroiliac joints bilaterally. L1-L2: Mild to moderate canal encroachment with facet arthritis and ligamentum flavum thickening. L2-L3: Views interspace narrowing with degenerative vacuum disc L2-L3, L4-L5 and L5-S1. Posterior disc osteophyte or hypertrophic extension with facet arthritis and ligamentum flavum thickening with moderate canal stenosis. L3-L4: Elongated collection of gas and or fluid within the mid and posterior spinal canal which likely significantly effaces and narrows the thecal sac and manifest severe canal stenosis the overall elongated gas and or fluid collection extending approximately 2.4 cm antral posterior by 1.5 cm transversely with a craniocaudal extent as discussed above. Prominent lateral recess narrowing and abundant posterior disc osteophyte formation or posterior discal calcification and resultant inferior right and moderate to severe left neural foraminal encroachment. L4-L5: Extensive posterior disc osteophyte formation and facet arthritis with lateral recess narrowing bilaterally and moderate to severe canal stenosis and moderate to severe inferior neural foraminal narrowing. L5-S1: Posterior disc bulge or elevation of the longitudinal ligament. Punctate collection of gas at the posterior interspace margin is probably degenerative. Facet arthritis and marked laminectomy thickening and or calcification with resultant moderate canal encroachment. Gallbladder and bile ducts: Partial visualization of accentuation of extrahepatic bile ducts with common bile duct diameter approaching 1.5 cm. Kidneys and ureters: Calculi within the left kidney. Probable parapelvic renal cyst bilaterally. Urinary bladder: Partially visible prominent bladder distension. Next prominent enlargement of partially visualized spleen. Vasculature: Calcified abdominal aorta. Soft tissues: See Bones/joints finding. CT/CT lumbar spine w con [id number] IMPRESSION: 1. Oval elongated spinal canal clustered collection of gas and or fluid at the operative site of the laminectomy defect at L3 and posterior to the thecal sac within the spinal canal at L3 and L3-L4. While findings could be postoperative reflecting a component of postoperative hemorrhage or fluid infectious etiology or abscess would not be excluded. Depending on the clinical scenario MRI with gadolinium is recommended. 2. Laminectomy defect at L3 on the left. 3. Diffuse posterior paraspinal and subcutaneous soft tissue ill-defined fluid and soft tissue stranding changes with a small collection of gas in the subcutaneous soft tissue space at a level of L2-L3. 4. Relatively stable numerous wedge and compression deformities of T12 and the lumbar spine as compared to recent MRI. 5. Advanced degenerative changes throughout the lumbar spine with multilevel moderate to severe canal stenosis.
[2022-08-04 05:59] LABS: Alanine Aminotransferase 17 U/L (0-33); Albumin Level 3.9 g/dL (3.5-5.2); Alkaline Phosphatase 97 U/L (35-105); Anion Gap 14.7 (5-19); Aspartate Amino Transferase 27 U/L (0-32); Blood Urea Nitrogen 9 mg/dL (8-23); Calcium 8.8 mg/dL (8.5-10.5); Carbon Dioxide 23 mmol/L (22-29); Chloride 101 mmol/L (98-107); Creatinine Clr Calc Pharmacy 51.8936; Globulin 3.2 g/dL (1.3-4.6); Glucose 114 mg/dL (65-115); Osmolality Calculated 280 mOsm/kg (285-295); Potassium 3.7 mmol/L (3.5-5.1); Sodium 135 mmol/L (136-145); Total Bilirubin 0.7 mg/dL (0.15-1.2); Total Protein 7.1 g/dL (6.6-8.7)
[2022-08-04] MEDS: fentaNYL 50 mcg/mL INJ 2mL IVP ×2 (07:04→07:39)
[2022-08-04] MEDS: iohexol 350 mg/mL 500 mL Btl (per mL) IV (07:39)
--- NOTE | 2022-08-04 07:49 | PC.PHAR ---
pt states she takes care of her own medications-pt states she just takes her carvedilol 3.125mg qam ext med history shows last filled 08/30/22 3.125mg bid -pt states takes her pantoprazole 40mg qam ext med history shows last filled 40mg bid 04/16/22 90d/s-pt states she stop taking her gabapentin 100mg hs a month ago ext med history shows last filled 04/16/22 90d/s
[2022-08-04] MEDS: HYDROmorphone 1 mg/mL INJ 1 mL IVP ×5 (10:40→21:31)
--- NOTE | 2022-08-04 10:42 | MRR_ITS ---
PROCEDURE INFORMATION: Exam: MR Lumbar Spine Without Contrast Exam date and time: 08/04/2022 12:12 PM Age: 82 years old Clinical indication: Pain; Other: Left hip; Prior surgery; Surgery date: 6+ months; Surgery type: L-spine both hips; Additional info: Sever pain, postoperative, inefection? TECHNIQUE: Imaging protocol: Magnetic resonance imaging of the lumbar spine without contrast. COMPARISON: CT lumbar spine w con [id number] 08/04/2022 7:33 AM FINDINGS: Bones/joints: Moderate chronic T12 vertebral body compression deformity. Mild-moderate chronic L1 vertebral body compression deformity. No destructive bony process identified. No acute fracture. No malalignment. Spinal cord: Posterior fluid collection at the L3-L4 operative site, partially effacing the thecal sac at that level (series 3 inter 1, image 6; series 601, image 21). Visualized cord, conus medullaris and cauda equina are otherwise unremarkable without compression. L1-L2: Moderate posterior annular bulging with mild spondylosis. The AP thecal sac dimension is 9.1 mm. L2-L3: Moderate-severe disc height loss. Moderate posterior annular bulging with mild spondylosis. The AP thecal sac dimension is 8.4 mm. Moderate bilateral neural foraminal narrowing. L3-L4: Mild posterior annular bulging. See Spinal cord above. Left lateral recess moderate-severe stenosis, moderate thecal sac effacement on the posterolateral left. Moderate bilateral L4-L5: Severe disc height loss, moderate posterior spondylosis. The AP thecal sac dimension is 4.6 mm. Severe bilateral neural foraminal narrowing. L5-S1: Severe posterior disc height loss. Mild posterior annular bulging and spondylosis. The AP thecal sac dimension is 5.8 mm. Moderate bilateral neural foraminal narrowing. Soft tissues: Extradural fluid posteriorly at the previously demonstrated left L3-L4 partial laminectomy site, measuring approximately 17.8 x 20.2 x 7.7 mm. Left lumbar subcutaneous adipose edema and recent skin incision. MR/MR lumbar spine wo con* [id number] IMPRESSION: Postoperative changes as above. Operative site small left posterior extradural nonspecific fluid collection (secondary left lateral recess and spinal canal stenosis) without specific evidence of infection. Contrast-enhanced imaging might add additional useful information if clinically needed. Multilevel spinal stenosis. Neural foraminal stenoses as above. Please see additional findings as above.
--- NOTE | 2022-08-04 10:47 | USR_ITS ---
PROCEDURE INFORMATION: Exam: US Duplex Right Lower Extremity Veins, Limited Exam date and time: 08/04/2022 11:29 AM Age: 82 years old Clinical indication: Pain; Leg, lower; Bilateral; Additional info: Dvt TECHNIQUE: Imaging protocol: Real-time duplex ultrasound of the Right extremity with 2-D eckert scale, color Doppler flow and spectral waveform analysis including responses to compression and other maneuvers (when performed) with image documentation. Limited exam was focused on the right lower extremity veins. COMPARISON: No relevant prior studies available. FINDINGS: Right deep veins: Unremarkable. The common femoral, femoral, proximal profunda femoral and popliteal veins are patent without thrombus. Normal Doppler waveforms. Normal compressibility and augmentation response. Right superficial veins: Unremarkable. Saphenofemoral junction is patent without thrombus. Soft tissues: Unremarkable. US/[place] [id number] IMPRESSION: No evidence of deep vein thrombosis.
--- NOTE | 2022-08-04 10:56 | P.HP_ITS ---
Providers/Chief Complaint Primary Care Provider: Deepa Kaufman NP Chief Complaint: HIP PAIN History of Present Illness Taylro Beaver is a 82 year old female with a past medical history of CAD status post stenting x2, hypothyroidism, hypertension, history of nephrolithiasis history of depression, history of type 2 diabetes mellitus, who presents [facility] due to severe left hip pain, left lower back pain. Currently history taking is difficult as patient is in extreme pain, she is writhing in severe pain, she has been given roughly 100 of fentanyl, 4 of morphine but she continues to have severe pain. She tells me that she lives at home by herself, she does not have any family members, she normally is in a motorized wheelchair, she ambulates a bit, she recently had back surgery by Dr. Silver. Since getting home she has been ambulating a little bit more, with a wheeled walker, no falls, no injuries. She tells me that since her left hip replacement is always bothered her to some degree, but nothing like this. She tells me that she typically does not ambulate much, but she tries, since her back surgery, however in 2 Friday evening and Friday morning she started to develop severe excruciating left back pain, left hip pain she points to the left hip that is primarily the focus of her pain. She tells me that she has to lie still, that she just has severe pain in her left hip, left back, it does not r eally radiate down her leg, no paresthesias, no numbness, no tingling. She currently she is in so much pain there is no position that is favorable for her, she does not report any loss of strength, no fevers, no chills, no history of blood clots, no calf pain, no calf swelling. He does not have a history of nephrolithiasis, but no hematuria, no dysuria. She tells me that she is just in so much pain she needs something to help her, nothing so far she has received she tells me touches the pain she tells me that its the hip replacement, that she has had, she thinks it is gone bad. But she denies any falls, no injuries, no history of spasms, no history of sciatica. I had a [id number] discussion with the ER physician, and he assures me that he went over CAT scan results with dr. silver, and Dr. Null felt that these findings seen on the CAT scan were likely postsurgical and expected,, no acute interventions. After seeing patient in so much pain, without any significant etiology except that left hip replacement, recent surgery, and patient's CAT scans findings was quite concerned, and had discussed with ER physician again about discussing with orthopedic service to see what their thought is. As she has received 100 of fentanyl, morphine, and she is still in a lot of pain I am not sure currently the etiology behind her pain, and I also I am concerned about how to be controlled her severe pain. ER physician will speak with orthopedic service and get their input. Meanwhile she has had surgery, she is in severe intractable pain, she does have a history of nephrolithiasis, she did not really have CVA tenderness back into her ultrasound of her kidney, she is immobile after surgery although she has no calf pain calf swelling I will do an ultrasound to eval for DVT. But I ordered an MRI of her hip and her lumbar spine as that seems the center of her pain, things that I would be looking for would be for infectious etiologies, as she has had back surgery, has CT scan finding shows: Hyperdense material within the sacral ala bilaterally with partial extension at the anterior bone margin greater on the left and partial involvement at the sacroiliac joints bilaterally. Review of Systems Const: Denies: fever(s) or chills ENMT: Denies: throat pain Card: Denies: chest pain Resp: Denies: dyspnea GI: Denies: abdominal pain, nausea or vomiting : Denies: flank pain, difficulty voiding, dysuria or urinary frequency Musc: Reports: back pain, extremity pain and joint pain Skin/Breast: Denies: rash Neuro: Denies: numbness in extremities or weakness in extremities Psych: Denies: anxiety Medications/Allergies Home Medications Medication Instructions Recorded Confirmed Last Taken Type aspirin 81 mg tablet,delayed 81 mg PO DAILY 04/30/22 08/04/22 05/25/22 History release atorvastatin 40 mg tablet 40 mg PO QAM 04/30/22 08/04/22 08/01/22 09:00 History carvedilol 3.125 mg tablet 3.125 mg PO QAM 04/30/22 08/04/22 08/01/22 09:00 History metoprolol tartrate 25 mg tablet 25 mg PO QAM 04/30/22 08/04/22 08/01/22 09:00 History pantoprazole 40 mg tablet,delayed 40 mg PO QAM 04/30/22 08/04/22 08/01/22 09:00 History release sertraline 200 mg capsule 200 mg PO QAM 04/30/22 08/04/22 08/01/22 09:00 History hydrocodone 5 mg-acetaminophen 325 1 - 2 tab PO .Q4-6H #40 tabs 08/02/22 08/04/22 08/04/22 05:00 Rx mg tablet 2 tabs levothyroxine 112 mcg tablet 112 mcg PO QAM 08/04/22 08/04/22 Unknown History Allergies Allergy/AdvReac Type Severity Reaction Status Date / Time No Known Allergies Allergy Verified 08/04/22 07:45 PFSH Acute PFSH: Medical History (Updated 08/04/22 @ 11:07 by Papa Beal MD) History of CAD (coronary artery disease) History of depression History of hyperlipidemia History of hypertension History of hypothyroidism History of nephrolithiasis History of type 2 diabetes mellitus Lumbar stenosis with neurogenic claudication Surgical History (Updated 08/04/22 @ 11:11 by Papa Beal MD) History of back surgery History of heart artery stent History of left hip replacement Family History (Updated 08/04/22 @ 11:07 by Papa Beal MD) Mother CAD (coronary artery disease) Social History (Updated 08/04/22 @ 11:07 by Papa Beal MD) Smoking and tobacco status: never smoked Alcohol intake: never Substance/Drug Use: never Vitals/I&O/Wt Last Vital Signs Temp 98.4 F 08/04/22 05:17 Pulse 85 08/04/22 05:37 Resp 18 08/04/22 10:40 BP 174/95 08/04/22 05:37 Pulse Ox 97 08/04/22 08:30 O2 Del Method 08/04/22 08:30 O2 Flow Rate 2 08/04/22 08:30 Weight last 48 hrs Weight 68.039 kg Physical Exam Narrative: Currently patient is in extreme pain, restless, writhing from side to side, pleading for something to help with her pain Const: COMMON NORMALS: no acute distress and patient oriented x3 EXAM LIMITATIONS: other limitations GENERAL APPEARANCE: in distress ORIENTATION/CONSCIOUSNESS: Yes awake, Yes oriented to person, Yes oriented to place and Yes oriented to time OTHER: Severe pain HENMT: COMMON NORMALS: normocephalic HEAD & SCALP: normocephalic Eye: COMMON NORMALS: Equal, round and reactive pupils present Neck/C-Spine: COMMON NORMALS: no JVD Lymph: LYMPHATIC: no lymphadenopathy noted Chest: COMMONS NORMALS: normal inspection of the chest Resp: COMMON NORMALS: normal respiratory effort, No retractions, No use of accessory muscles and clear to auscultation bilaterally AUSCULTATION: clear to auscultation bilaterally Cardio: COMMON NORMALS: regular rate, regular rhythm, S1 normal heart sound present and S2 normal heart sound present RATE: regular rate RHYTHM: regular rhythm HEART SOUNDS: S1 normal heart sound present and S2 normal heart sound present GI: COMMON NORMALS: Normal to inspection, nondistended, normoactive bowel sounds present, Soft to palpation, non-tender, no masses and no bruits PALPATION: Yes Soft to palpation Back/Pelvis: GENERAL BACK: No CVA tenderness THORACIC SPINE/UPPER BACK: Yes normal to inspection, No pain with ROM, No thoracic spinal tenderness, No paraspinal muscle tenderness and No paraspinal muscle spasm LUMBAR SPINE/LOWER BACK: Yes ROM limited, Yes lumbar spinal tenderness, Yes paraspinal muscle tenderness and Yes paraspinal muscle spasm OTHER: Lower lumbar spine examination Extremity: COMMON NORMALS: no calf tenderness and no pedal edema NARRATIVE EXTREMITY EXAM: Left hip exam, surgical scar is clean and dry, no erythema, no swelling, just palpating causes extreme pain, she is lying on her right hip, does not want to be touched due to severe pain, I was able to test her hip flexor and extensor, she actually does have good strength same thing with her toe-touch and extension has good strength, she has some range of motion but extreme pain with right any type of range of motion of the hip, DP PT pulses palpable, popliteal pulses palpable Neuro: COMMON NORMALS: patient oriented x3, CN's II-XII intact bilaterally and no focal motor deficits Psych: COMMON NORMALS: mental status grossly normal Data 08/04/22 05:20 08/04/22 05:20 A&P Assessment and plan (1) Intractable pain: (2) Left hip pain: (3) Left low back pain: (4) Lumbar stenosis with neurogenic claudication: (5) History of left hip replacement: (6) History of back surgery: (7) History of CAD (coronary artery disease): (8) History of hypothyroidism: (9) History of hyperlipidemia: (10) History of depression: (11) History of hypertension: (12) History of type 2 diabetes mellitus: Plan Severe intractable pain -Primarily in the left hip, but also in the left lower back, left lower lumbar spine -Etiology unclear -She does have a history of nephrolithiasis, 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, we will do a renal ultrasound and a urinalysis creatinine is within normal limits -She does recently have back surgery, no calf pain, no calf swelling, but she does have increased immobility will do ultrasound for DVT -Order a CPK, ESR, CRP, Pro-Tom -Given her severe intractable pain, recent surgery, and CT scan findings, I Maritza order an MRI of her left hip, in addition MRI lower spine -My concerns that she has gotten 100 of fentanyl, in addition to Dilaudid and morphine without any improvement of her pain symptoms -I will add on baclofen for muscle spasms, gabapentin 300 mg twice daily -Dilaudid 1 mg every 2 hours as needed -I will hold off on any PT OT until I get some of the MRI results back -Patient's CODE STATUS she wants to be a DNR/DNI -DVT prophylaxis Lovenox -Continue her aspirin, statin, Coreg, sertraline Attestations Medical Necessity Statement*: Patient requires hospitalization, inpatient, greater than 2 midnights for intractable left hip pain, intractable lower back pain, recent back surgery Coding Level of Care Code Acute Code for g Fwd Diagnoses Intractable pain R52 Left hip pain M25.552 Left low back pain M54.50 Lumbar stenosis with neurogenic claudication M48.062 History of left hip replacement Z96.642 History of back surgery Z98.890 History of CAD (coronary artery disease) Z86.79 History of hypothyroidism Z86.39 History of hyperlipidemia Z86.39 History of depression Z86.59 History of hypertension Z86.79 History of type 2 diabetes mellitus Z86.39
--- NOTE | 2022-08-04 10:59 | USR_ITS ---
PROCEDURE INFORMATION: Exam: US Retroperitoneal; Complete; Kidneys and Bladder Exam date and time: 08/04/2022 11:45 AM Age: 82 years old Clinical indication: Abdominal pain; Acute; Additional info: Left kidney stone? TECHNIQUE: Imaging protocol: Real-time ultrasound of the retroperitoneum with image documentation. Complete exam focused on the kidneys and bladder. COMPARISON: CT hip LT wo con* [id number] 08/04/2022 7:28 AM FINDINGS: Right kidney: The right kidney measures 10.0 x 5.5 x 6.1 cm. Age related renal cortical thinning, no hydronephrosis. Left kidney: The left kidney measures 10.7 x 5.4 x 4.7 cm. Age related renal cortical thinning. Moderate pelvicaliectasis. No obstructing calculus specifically identified, though not excluded. A brief color Doppler examination of the left kidney was performed showing normal color shifts. Urinary bladder: Unremarkable. US/US renal BI* [id number] IMPRESSION: Moderate left pelvicaliectasis/hydronephrosis
--- NOTE | 2022-08-04 11:07 | ECG_ITS ---
[facility] Test Date: 2022-08-04 Pat Name: Taylor Beaver Department: Room: Gender: Female Chain Dyer: : 1940 Requested By: Papa Beal Order Number: [id number] Bhakti MD: Ronny Zhang M.D. Measurements Intervals [place] Rate: 86 P: 61 MT: 135 QRS: 8 QRSD: 112 T: 77 QT: 384 QTc: 459 Interpretive Statements SINUS RHYTHM POSSIBLE LEFT ATRIAL ENLARGEMENT [-0.1mV P-WAVE IN V1/V2] MODERATE INTRAVENTRICULAR CONDUCTION DELAY [110+ ms QRS DURATION] NONSPECIFIC ST & T-WAVE ABNORMALITY Compared to ECG 07/30/2022 08:26:49 Intraventricular conduction delay now present T-wave abnormality still present Electronically Signed On 08-04-2022 22:04:08 CONCENTRATOR OPERATOR by Ronny Zhang M.D. [id number]
[2022-08-04 12:28] LABS: C Reactive Protein 71.7 mg/L (0.0-4.9); Creatine Phosphokinase 93 U/L (26-192); Ferritin 120 ng/mL (15-150)
[2022-08-04 12:33] LABS: Erythrocyte Sedimentation Rate 57 mm/hr (0-15); Procalcitonin 0.11 ng/mL (0-0.5)
[2022-08-04 12:37] LABS: Thyroid Stimulating Hormone 4.04 uIU/mL (0.27-4.20)
[2022-08-04] MEDS: enoxaparin 40 mg/0.4 mL Syringe SUBCUT (12:47)
[2022-08-04] MEDS: gabapentin 300 mg Capsule PO ×2 (12:48→23:37)
[2022-08-04] MEDS: pantoprazole 40 mg SDV IVP (12:50)
[2022-08-04] MEDS: sodium chloride 0.9% 1,000 ML 75 ML IV ×2 (12:50→21:31)
--- NOTE | 2022-08-04 13:07 | ECG_ITS ---
Test Date: 2022-08-04 Pat Name: Taylor Beaver Department: Room: Gender: Female Professor Of Management: : 1940 Requested By: Papa Beal Order Number: [id number] Bhakti MD: Ronny Zhang M.D. Measurements Intervals [place] Rate: 93 P: 52 AL: 151 QRS: -4 QRSD: 107 T: 69 QT: 371 QTc: 464 Interpretive Statements SINUS RHYTHM LEFT ATRIAL ENLARGEMENT [-0.15mV P-WAVE IN V1/V2] NONSPECIFIC T-WAVE ABNORMALITY Compared to ECG 08/04/2022 11:14:18 Intraventricular conduction delay no longer present T-wave abnormality still present Electronically Signed On 08-04-2022 22:20:15 AUTOMATIC BUFFING WHEEL FORMER by Ronny Zhang M.D. [id number]
[2022-08-04 13:46] LABS: Troponin(5th) Baseline 12 ng/L (0-10)
[2022-08-04 13:47] LABS: Lactic Sepsis W/Reflex 0.6 mmol/L (0.5-2.2)
[2022-08-04 15:07] LABS: Urine Appearance Clear (CLEAR); Urine Color Yellow (Yellow); pH Urine 5 (5-7)
[2022-08-04 15:08] LABS: Add Urine Culture? No; Add Urine Microscopic? YES; Bacteria Urine TRACE /hpf; Bilirubin Urine 1+ (Negative); Blood Urine 2+ (Negative); Glucose Urine UA Norm (Normal); Ketones Urine 1+ (Negative); Leukocyte Esterase Urine Negative (Negative); Nitrate Urine Negative (Negative); Protein Urine Trace (Negative); Urobilinogen Urine Norm (Negative); WBC Urine 0-4 /hpf (0-5)
--- NOTE | 2022-08-04 15:45 | PC.NURSE ---
1335 patient recieved from ER per cart, Transferred to bed with 4 assist. patient tolerated fair. patient having 10/10 pain with minimal movement of left leg and hip. VS obtained and assessment completed
[2022-08-04 15:52] LABS: Troponin 5 2HR 11.74 ng/L (0-10)
[2022-08-04 15:59] LABS: Troponin 5 2HR Delta -0.26 ABS# (0-10)
[2022-08-04 19:01] LABS: Troponin 5 6HR 11.97 ng/L (0-10)
[2022-08-04 19:03] LABS: Troponin 5 6HR Delta -0.03 ng/L (0-12)
[2022-08-05] VITALS (11 sets, daily range): BP systolic 109–165; BP diastolic 63–74; PULSE 78–94; RESP 14–20; TEMP 36.5–37.8; O2SAT 90–99
[2022-08-05] MEDS: HYDROmorphone 1 mg/mL INJ 1 mL IVP ×3 (02:35→18:56)
[2022-08-05 03:02] LABS: Basophils % 0.1 %; Eosinophils # 0.2 10^3/uL (0.0-0.8); Eosinophils % 2.5 %; Hematocrit 36.9 % (37.0-47.0); Hemoglobin 10.9 g/dL (11.5-15.3); Lymphocytes # 0.9 10^3/uL (0.8-4.8); Lymphocytes % 12.6 %; Mean Corpuscular HGB Conc 29.5 g/dL (30.0-36.0); Mean Corpuscular Hemoglobin 30.1 pg (28.0-34.0); Mean Corpuscular Volume 101.9 fl (81-99); Mean Platelet Volume 10.7 fL (7.4-10.4); Monocytes # 0.6 10^3/uL (0.2-0.9); Monocytes % 8.6 %; Neutrophils # 5.46 10^3/uL (1.8-7.7); Neutrophils % 75.9 %; Nucleated Red Blood Cells % 0 %; Platelet Count 129 10^3/cmm (130-400); Red Blood Count 3.62 10^6/uL (4.1-5.3); Red Cell Distribution Width 14.6 % (12.1-15.1); White Blood Count 7.2 10^3/uL (4.0-10.0)
[2022-08-05 03:25] LABS: Anion Gap 15.1 (5-19); Blood Urea Nitrogen 11 mg/dL (8-23); Calcium 7.9 mg/dL (8.5-10.5); Carbon Dioxide 23 mmol/L (22-29); Chloride 107 mmol/L (98-107); Glucose 95 mg/dL (65-115); Osmolality Calculated 291 mOsm/kg (285-295); Potassium 4.1 mmol/L (3.5-5.1); Sodium 141 mmol/L (136-145)
--- NOTE | 2022-08-05 10:23 | PC.CHAP ---
Pastoral Care Encounter/Spiritual Assessment Type of Contact [] Declined purchasing assistant visit [] Patient/Family/Request visit [] Outpatient visit [] Follow-up visit [] Physician referral [] Code/Alert [x] Routine visit [] Staff referral [] Actively dying [] Patient sleeping [] Family support [] [] Out of room [] Palliative care [] [] Receiving care in room [] Pre-surgical visit [] Trauma [] Long length of stay [] ICU visit [] Other: Relational/Emotional Strength [x] Patient feels connected with others/family/visitors/staff [] Distress [] Loneliness/isolation [] Abandonment Spirituality of Patient [x] Person of [place] [x] Attends Orthodoxy of their [place] [x] Believes in Prayer [x] Reads Bible or Jain materials [] There are Spiritual issues to be addressed Vocational Technical Education Teacher 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 [x] Prayer [x] Active listening [] Non-anxious presence [x] Spiritual/emotional support [] Crisis/trauma care [] Spiritual counseling [] Bereavement support [] Provided bereavement packet [] Provided Bible/devotional materials [] Provided toy/stuffed animal, coloring book to patient or family member [] Provided Communion [] Anointing/[place] [] Salvation [x] Completed spiritual assessment [] Other: Impact on Illness or Injury [] Angry [] Fearful [] Anxious [] Often cries [] Exhaustion [] Unable to work [] Unable to attend religion [] Unable to walk/stand [] Unable to read [] Unable to drive [] Unable to eat/drink [] Unable to sleep [] Unable to be with family [] Patient intubated [] Other: Summary Time spent with patient 15 min
[2022-08-05] MEDS: HYDROmorphone 1 mg/mL INJ 1 mL 1.5 MG IVP ×2 (10:30→13:28)
[2022-08-05] MEDS: enoxaparin 40 mg/0.4 mL Syringe SUBCUT (10:31)
[2022-08-05] MEDS: pantoprazole 40 mg SDV IVP (10:32)
[2022-08-05] MEDS: baclofen 10 mg Tablet PO ×2 (10:32→18:58)
[2022-08-05] MEDS: gabapentin 300 mg Capsule PO ×2 (10:32→22:35)
--- NOTE | 2022-08-05 10:44 | XR_ITS ---
WS: [id number] Exam: XR chest 1V portable [id number] Date/Time of Exam: 08/05/2022 10:44 AM Reason For Exam: sob No priors. The lungs are fully expanded. No consolidating infiltrates are noted. Increased pulmonary vascularity noted. The cardiomediastinal silhouette is unremarkable for technique. No pleural effusions. Monitor ing leads superimpose the chest. Intact bony structures. L2 vertebral plasty. Signs of prior cholecys tectomy. XR/XR chest 1V portable [id number] IMPRESSION: 1. Probable mild pulmonary vascular congestion. 2. No consolidated infiltrates or pneumothorax.
[2022-08-05] MEDS: sodium chloride 0.9% 1,000 ML 75 ML IV (10:56)
[2022-08-05 11:27] LABS: NT Pro B Type Natriuretic Pept 626 pg/mL (0-450)
--- NOTE | 2022-08-05 13:16 | PM.PN ---
Subjective Subjective: Patient seen today she does not have any pain at this time in her left leg. She is lying comfortably in bed. She has not been out of bed however. She was admitted for left hip pain that radiates down her leg. She has had surgery on Friday. Vitals/I&O/Wt Last Vital Signs Temp 98.3 F 08/05/22 11:34 Pulse 94 08/05/22 11:34 Resp 16 08/05/22 11:34 BP 119/63 08/05/22 11:34 Pulse Ox 90 08/05/22 11:34 O2 Del Method 08/05/22 11:34 O2 Flow Rate 1 08/05/22 04:00 08/04/22 08/05/22 08/05/22 22:59 06:59 14:59 Intake Total 951.25 / 951.25 1300 / 1300 Output Total 950 / 950 400 / 1350 Balance 1.25 / 1.25 -400 / -398.75 1300 / 1300 Weight last 48 hrs Weight 151 lb 1 oz Weight 150 lb Physical Exam Narrative: Gentle passive range of motion of the hip does not elicit any pain. Urinary Catheter Management: Sarmiento: Cath Placed During This Visit: yes Reason for Continuing Indwelling Catheter: Required Immobilization for Trauma or Surgery or Anesthesia Urinary Catheter Date of Insertion: 08/04/22 Urinary Catheter Time of Insertion: 15:13 Data 08/05/22 02:32 08/05/22 02:32 Micro: Microbiology 08/04/22 13:00 Blood Culture - Preliminary Blood SPECIMEN COLLECTED 08/04/22 12:56 Blood Culture - Preliminary Blood SPECIMEN COLLECTED A&P Assessment and plan (1) Encounter for postoperative care: Patient is postop day #3 today. When I examined her today she was not having any pain in her hip or in her back. She said she is completely pain-free at this time. Will would like to see how she does with physical therapy before she is discharged. Help with therapy work with her this afternoon and then she be discharged from spine standpoint. Attestations Medical Necessity Statement*: per primary service Coding Level of Care Code Acute Code for [facility] Fwd Diagnoses Encounter for postoperative care Z48.89
--- NOTE | 2022-08-05 13:24 | P.CONIM_ITS ---
Providers/Reason For Consult Consulting Physician/Specialty*: Joseline Granado MD Reason for Consult*: Left hip pain Requesting Physician: Dr. Candace Lopez Attending Physician: Papa Beal MD Primary Care Provider: Deepa Kaufman NP History of Present Illness History of Present Illness Taylor Beaver is a 82 year old female who underwent a L3-4 laminectomy with partial facetectomies by Dr. Celestine Tapia on August 02, 2022. The patient presented to the emergency department on August 04 complaining of acute left hip pain. She had a previous history of hip replacement with subsequent revision. The patient noted that she had been up and ambulating the day prior to admission, and she felt she may have overdone activities resulting in severe left hip pain. The pain was sharp and worse with any movement. She was admitted from the emergency room for evaluation of her left hip as well as her postoperative evaluation secondary to her most recent spine surgery. Review of Systems Const: Denies: fever(s), chills, body aches or change in appetite Eyes: Denies: blurry vision or eye discomfort ENMT: Denies: throat pain or dental pain Card: Denies: chest pain Resp: Denies: dyspnea GI: Denies: abdominal pain, nausea, vomiting or diarrhea : Denies: flank pain, difficulty voiding, dysuria or urinary frequency Musc: Reports: back pain, extremity pain and joint pain Skin/Breast: Denies: rash Neuro: Denies: headache(s), numbness in extremities or weakness in extremities Psych: Denies: anxiety or depression Brayden/Lymph: Denies: easy bruising All/Imm: Denies: urticaria Medications/Allergies Home Medications Medication Instructions Recorded Confirmed Last Taken Type aspirin 81 mg tablet,delayed 81 mg PO DAILY 04/30/22 08/04/22 05/25/22 History release atorvastatin 40 mg tablet 40 mg PO QAM 04/30/22 08/04/22 08/01/22 09:00 History carvedilol 3.125 mg tablet 3.125 mg PO QAM 04/30/22 08/04/22 08/01/22 09:00 History metoprolol tartrate 25 mg tablet 25 mg PO QAM 04/30/22 08/04/22 08/01/22 09:00 History pantoprazole 40 mg tablet,delayed 40 mg PO QAM 04/30/22 08/04/22 08/01/22 09:00 History release sertraline 200 mg capsule 200 mg PO QAM 04/30/22 08/04/22 08/01/22 09:00 History hydrocodone 5 mg-acetaminophen 325 1 - 2 tab PO .Q4-6H #40 tabs 08/02/22 08/04/22 08/04/22 05:00 Rx mg tablet 2 tabs levothyroxine 112 mcg tablet 112 mcg PO QAM 08/04/22 08/04/22 Unknown History Allergies Allergy/AdvReac Type Severity Reaction Status Date / Time No Known Allergies Allergy Verified 08/04/22 07:45 Current Medications Generic Name Dose Route Start Last Admin Trade Name Freq PRN Reason Stop Dose Admin Baclofen 10 mg 08/04/22 11:04 08/05/22 10:32 Baclofen 10 Mg Tablet PO 10 mg QID PRN Administration hip pain, back pain Enoxaparin Sodium 40 mg 08/04/22 11:00 08/05/22 10:31 Enoxaparin 40 Mg/0.4 Ml Syringe SUBCUT 40 mg Q24H IDA Administration Gabapentin 300 mg 08/04/22 11:15 08/05/22 10:32 Gabapentin 300 Mg Capsule PO 300 mg Q12H IDA Administration Hydromorphone HCl 1.5 mg 08/05/22 10:09 08/05/22 10:30 Hydromorphone 1 Mg/Ml Inj 1 Ml IVP 1.5 mg Q2H PRN Administration pain Sodium Chloride 1,000 mls @ 75 mls/hr 08/04/22 11:00 08/05/22 10:56 Sodium Chloride 0.9% IV 75 mls/hr .[id number] IDA Administration Pantoprazole Sodium 40 mg 08/04/22 11:00 08/05/22 10:32 Pantoprazole 40 Mg Sdv IVP 40 mg Q24H IDA Administration PFSH Acute PFSH: Medical History (Updated 08/05/22 @ 15:41 by Joseline Granado MD) History of CAD (coronary artery disease) History of depression History of hyperlipidemia History of hypertension History of hypothyroidism History of nephrolithiasis History of type 2 diabetes mellitus Lumbar stenosis with neurogenic claudication Surgical History (Updated 08/04/22 @ 11:11 by Papa Beal MD) History of back surgery History of heart artery stent History of left hip replacement Family History (Updated 08/04/22 @ 11:07 by Papa Beal MD) Mother CAD (coronary artery disease) Social History (Updated 08/04/22 @ 11:07 by Papa Beal MD) Smoking and tobacco status: never smoked Alcohol intake: never Substance/Drug Use: never Vitals/I&O/Wt Last Vital Signs Temp 98.3 F 08/05/22 11:34 Pulse 94 08/05/22 11:34 Resp 16 08/05/22 11:34 BP 119/63 08/05/22 11:34 Pulse Ox 90 08/05/22 11:34 O2 Del Method 08/05/22 11:34 O2 Flow Rate 1 08/05/22 04:00 08/04/22 08/05/22 08/05/22 22:59 06:59 14:59 Intake Total 951.25 / 951.25 1300 / 1300 Output Total 950 / 950 400 / 1350 Balance 1.25 / 1.25 -400 / -398.75 1300 / 1300 Weight last 48 hrs Weight 151 lb 1 oz Weight 150 lb Physical Exam Const: COMMON NORMALS: no acute distress, average body habitus, patient oriented x3 and alert GENERAL APPEARANCE: cooperative and comfortable ORIENTATION/CONSCIOUSNESS: Yes awake HENMT: COMMON NORMALS: normocephalic and atraumatic HEAD & SCALP: normocephalic and atraumatic Eye: GENERAL EYE: appearance normal, both eyes and all related structures Chest: COMMONS NORMALS: normal inspection of the chest Resp: COMMON NORMALS: normal respiratory effort EFFORT & INSPECTION: Yes able to speak in complete sentences and Yes symmetric chest movement Extremity: LEFT LOWER EXTREMITY: Yes hip joint (I am able to gently range the left hip with minimal to no discomfort.) Left hip: Yes inspection (There is no ecchymosis.), Yes palpation (Minimally tender.), Yes ROM (Minimal tenderness as noted above.) and Yes neurovascular exam (Intact distally.) Neuro: COMMON NORMALS: patient oriented x3 SENSORIUM/ORIENTATION: Yes alert Psych: COMMON NORMALS: mental status grossly normal APPEARANCE: Yes grossly normal ATTITUDE: Yes calm and Yes engaged ATTENTION/CONCENTRATION: Yes attention grossly intact Skin: COMMON NORMALS: no rashes or lesions noted GENERAL SKIN EXAM: no rashes or lesions noted Urinary Catheter Management: Sarmiento: Cath Placed During This Visit: yes Reason for Continuing Indwelling Catheter: Required Immobilization for Trauma or Surgery or Anesthesia Urinary Catheter Date of Insertion: 08/04/22 Urinary Catheter Time of Insertion: 15:13 Data 08/05/22 02:32 08/05/22 02:32 Micro: Microbiology 08/04/22 13:00 Blood Culture - Preliminary Blood NEGATIVE TO DATE 08/04/22 12:56 Blood Culture - Preliminary Blood NEGATIVE TO DATE Xray Ortho: My impression: I have personally reviewed the patient's x-rays of the left hip and femur as well as imaging under CT of the patient's left hip as well. Three-phase bone scan is pending at the time of this dictation. The patient has a prior total hip arthroplasty with subsequent revision. In reviewing the images, she appears to have shortening of the left lower extremity, and there are cerclage wires consistent with previous revision. The proximal 2 wires are broken the distal 2 wires are intact. She has a total knee arthroplasty as well and this is a hinge type total knee which is connected to the long stem of the femoral component. The hip has a constrained liner as well. Proximally, on the lateral of the hip, there does appear to be an area of noncontact of the proximal aspect of this anabaptist modular type stem. I have no prior x-rays for comparison to determine whether or not this is acute or chronic. CT was obtained and there is note of osteopenia with expansion of the medullary space proximally which was felt to possibly be long-term or a combination of l aaron-term change with loosening. There is also thinning of the cortical bone in the proximal to mid diaphysis of the femur consistent with stress shielding. The previous fracture requiring cerclage wires at this point, does appear to be healed proximally. Findings are consistent with complex left hip and knee revision surgery with solid construct from the hip to the knee including hinged knee arthroplasty and constrained hip prosthesis. A&P Assessment and plan (1) Acute pain of left hip: Patient was noted to have acute hip pain at the time of admission 2 days after lumbar decompression. Today, I am able to range the hip with minimal to no discomfort. There is no significant ecchymosis or swelling about the hip. After review of the x-rays, the patient has a very complex prosthesis in place which is internal intramedullary vika in the femur connecting the stem of the hip arthroplasty to the stem of the knee revision. The knee is a hinged component in the hip aspect of this construct is a constrained total hip arthroplasty. If the patient needed revision of this construct, she would likely need a total femoral replacement which is not done at this institution. She would need transfer to an institution of higher care. Today, she is demonstrating no evidence of hip pain, and until this becomes more problematic for her, symptomatic care would be indicated. (2) History of revision of total replacement of left hip joint: (3) History of revision of total replacement of left knee joint: Coding Level of Care Code Acute Code for [facility] Fwd Diagnoses Acute pain of left hip M25.552 History of revision of total replacement of left hip joint Z96.642 History of revision of total replacement of left knee joint Z96.652
[2022-08-05] MEDS: ondansetron 2 mg/ML SDV 2 mL 4 MG IVP (13:32)
--- NOTE | 2022-08-05 15:09 | P.PN_ITS ---
Subjective Subjective: Patient was seen early this morning, she was in extreme pain, she is lying on her left side, she is begging me to move her hip, as her hip is hurting her, she tells me that she heard throughout the night, Dilaudid helps, but the pain would come right back, she is now needing oxygen, she has been v omiting all night, due to pain, denies any fevers I had nursing staff immediately give her 1.5 mg of Dilaudid with Zofran, she was then reexamined, 30 minutes after she tells me that the pain has completely resolved, she feels better, on examination she is able to move her left hip considerably more, her back is not hurting her, I was able to palpate her back and her hip pain has almost completely resolved, I also had nursing staff give her baclofen to see if that would help, I am waiting on consultation by orthopedic service, and Dr. Tapia service Vitals/I&O/Wt Last Vital Signs Temp 98.3 F 08/05/22 11:34 Pulse 94 08/05/22 11:34 Resp 20 H 08/05/22 13:28 BP 119/63 08/05/22 11:34 Pulse Ox 94 08/05/22 13:28 O2 Del Method 08/05/22 11:34 O2 Flow Rate 1 08/05/22 04:00 08/05/22 08/05/22 08/05/22 06:59 14:59 22:59 Intake Total 1300 / 1300 Output Total 400 / 1350 Balance -400 / -398.75 1300 / 1300 Weight last 48 hrs Weight 68.521 kg Weight 68.039 kg Physical Exam Const: COMMON NORMALS: no acute distress and patient oriented x3 Resp: COMMON NORMALS: normal respiratory effort, No retractions, No use of accessory muscles and clear to auscultation bilaterally AUSCULTATION: clear to auscultation bilaterally Cardio: COMMON NORMALS: regular rate, regular rhythm, S1 normal heart sound present and S2 normal heart sound present RATE: regular rate RHYTHM: regular rhythm HEART SOUNDS: S1 normal heart sound present and S2 normal heart sound present GI: COMMON NORMALS: Normal to inspection, nondistended, normoactive bowel sounds present and non-tender Extremity: COMMON NORMALS: no pedal edema Neuro: COMMON NORMALS: patient oriented x3 Psych: COMMON NORMALS: mental status grossly normal Urinary Catheter Management: Sarmiento: Cath Placed During This Visit: yes Reason for Continuing Indwelling Catheter: Required Immobilization for Trauma or Surgery or Anesthesia Urinary Catheter Date of Insertion: 08/04/22 Urinary Catheter Time of Insertion: 15:13 Data 08/05/22 02:32 08/05/22 02:32 Micro: Microbiology 08/04/22 13:00 Blood Culture - Preliminary Blood NEGATIVE TO DATE 08/04/22 12:56 Blood Culture - Preliminary Blood NEGATIVE TO DATE A&P Assessment and plan (1) Intractable pain: (2) Left hip pain: (3) Left low back pain: (4) Lumbar stenosis with neurogenic claudication: (5) History of left hip replacement: (6) History of back surgery: (7) History of CAD (coronary artery disease): (8) History of hypothyroidism: (9) History of hyperlipidemia: (10) History of depression: (11) History of hypertension: (12) History of type 2 diabetes mellitus: Plan Severe intractable pain -Primarily in the left hip, but also in the left lower back, left lower lumbar spine -Etiology unclear -She does have a history of nephrolithiasis, the CT of her lumbar spine did pick and shovel man a kidney stone on the left -Renal ultrasound shows moderate left pelvic stasis, hydronephrosis -Spoke to urology bladder is distended, recommended placing Sarmiento catheter, no acute interventions -UA does not really have any evidence of a UTI, does show blood but could be from Sarmiento catheter placement, no significant fevers, no leukocytosis, no creatinine abnormality, CRP 70, procal WNL -She does recently have back surgery, no calf pain, no calf swelling, but she does have increased immobility, venous ultrasound -Order a CPK WNL, ESR 57, CRP 71.7, Pro-Tom within normal limits -severe intractable pain, left hip pain, with history of left hip prosthesis, went over CT scan findings with orthopedic service, went over plain films with orthopedic service, discussed with orthopedic service proceed with bone scans and pain control, would not recommend any surgery at this point or any interventions, she will need to follow-up with tertiary level center if she does want to do any surgery -Hip CT 1. Left hip arthroplasty with long stem endo femoral component. 2. Profound osteopenia. 3. Marked expansion the medullary space between the bone prosthesis interface which could be due to long-term bone demineralization and or combination component loosening. 4. 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 5. Lucency within multiple areas of thin cortical bone at the proximal diaphysis which although could reflect subtle areas of cortical fracture could also be due to profound bone absence and distinction would be difficult. On the basis of appearance, the patient is likely at high risk for displaced fracture injury. -MRI of the lumbar spine Postoperative changes as above.? Operative site small left posterior extradural nonspecific fluid collection (secondary left lateral recess and spinal canal stenosis) without specific evidence of infection.? Contrast-enhanced imaging might add additional useful information if clinically needed.? Multilevel spinal stenosis. Neural foraminal stenoses as above. ? Please see additional findings as above.? -Spoke to Dr. Tapia, nothing acute in the back, pain control -Continue baclofen for muscle spasms, gabapentin 300 mg twice daily -We will try to space of her Dilaudid to 1 mg every 4 hours, as I am worried about respiratory depression, her O2 requirements have increased to 2 L -She also has evidence of fluid overload with the fluids that were giving to her stop fluids, will give her 20 of Lasix -Hold off on PT OT until bone scan results can be obtained -Patient's CODE STATUS she wants to be a DNR/DNI -DVT prophylaxis Lovenox -Continue her aspirin, statin, Coreg, sertraline Attestations Medical Necessity Statement*: Patient requires hospitalization due to severe intractable left hip pain, inability to ambulate due to pain Coding Level of Care Code 50671 High Time for a total of 60 minutes, includes reviewing past or interval history, examining/interviewing patient, placing orders, counseling patient/family/other support, updating patient/family/other support, discussing plan of care with staff, communicating with other healthcare providers, joe rice encounter and coordinating care Diagnoses Intractable pain R52 Left hip pain M25.552 Left low back pain M54.50 Lumbar stenosis with neurogenic claudication M48.062 History of left hip replacement Z96.642 History of back surgery Z98.890 History of CAD (coronary artery disease) Z86.79 History of hypothyroidism Z86.39 History of hyperlipidemia Z86.39 History of depression Z86.59 History of hypertension Z86.79 History of type 2 diabetes mellitus Z86.39
[2022-08-05] MEDS: FUROsemide 10 mg/mL SDV 2mL 20 MG IVP (15:38)
[2022-08-06] VITALS (9 sets, daily range): BP systolic 106–165; BP diastolic 52–75; PULSE 71–101; RESP 12–17; TEMP 36.2–36.9; O2SAT 89–98
[2022-08-06] MEDS: HYDROmorphone 1 mg/mL INJ 1 mL IVP (03:01)
--- NOTE | 2022-08-06 07:17 | PM.PN ---
Subjective Subjective: POD 4 Patient was very confused this morning. Nurses stated that she was given a dose of Dilaudid. Vitals/I&O/Wt Last Vital Signs Temp 97.9 F 08/06/22 04:00 Pulse 80 08/06/22 04:00 Resp 12 08/06/22 04:00 BP 106/52 08/06/22 04:00 Pulse Ox 89 L 08/06/22 04:00 O2 Del Method 08/05/22 15:53 O2 Flow Rate 2 08/05/22 15:43 08/05/22 08/06/22 08/06/22 22:59 06:59 14:59 Intake Total 470 / 1770 Output Total 1200 / 1200 750 / 1950 Balance -730 / 570 -750 / -180 Weight last 48 hrs Weight 151 lb 1 oz Physical Exam Narrative: Patient confused appears overmedicated. Moving both lower extremities feet are warm good cap refill. Urinary Catheter Management: Sarmiento: Cath Placed During This Visit: yes Reason for Continuing Indwelling Catheter: Required Immobilization for Trauma or Surgery or Anesthesia Urinary Catheter Date of Insertion: 08/04/22 Urinary Catheter Time of Insertion: 15:13 Data 08/05/22 02:32 08/05/22 02:32 Micro: Microbiology 08/04/22 13:00 Blood Culture - Preliminary Blood NEGATIVE TO DATE 08/04/22 12:56 Blood Culture - Preliminary Blood NEGATIVE TO DATE A&P Assessment and plan (1) Encounter for postoperative care: I would recommend discontinuing Dilaudid allowing the patient to become more alert. Continue with physical therapy. Encourage incentive spirometry for pulmonary toilet. Attestations Medical Necessity Statement*: Defer to medical team Coding Level of Care Code Acute Code for Chg Fwd Diagnoses Encounter for postoperative care Z48.89
--- NOTE | 2022-08-06 10:09 | NM_ITS ---
WS: [id number] NUCLEAR MEDICINE 3 PHASE BONE SCAN Radiopharmaceutical: 24.4 Tc-99m MDP mCi IV Injection site: antecubital Postinjection imaging delay: 2 hr CLINICAL INFORMATION: Left hip pain COMPARISON: CT LEFT hip August 04, 2022 FINDINGS: Prior extensive postoperative changes LEFT DUNIA with longstem femoral vika prosthesis and cerclage wire s. Marked osteopenia. Prior CT demonstrated expansion of the medullary space interposed between the p rosthesis and residual surrounding cortical bone. Relatively normal blood flow and blood pool images. No evidence of osteomyelitis. Increased cortical radiotracer activity about the LEFT hip and femoral component likely due to chronic bony remodeling a nd loosening. No intense punctate foci of asymmetric activity to indicate acute stress fracture. LEFT TKA with normal periarticular uptake. Bone marrow activity is similar to 2009 bone scan absent t he long LEFT femoral prosthesis and LEFT TKA. Prior vertebroplasty changes T12. Soft tissue contours: Normal. Kidneys: Normal. Other findings: Degenerative type uptake in the lower lumbar spine. Degenerative type uptake involvin g both AC joints and sternoclavicular joints. Degenerative uptake about the RIGHT knee. NM/NM bone 3 phase 36204 IMPRESSION: 1. Normal blood flow and blood pool images. No evidence of osteomyelitis. 2. Diffuse symmetric cortical uptake about the LEFT femoral vika prosthesis com patible with chronic bony remodeling and loosening 3. No suspicious areas of activity LEFT femur or hip to indicate acute stress fracture. 4. Prior postoperative changes LEFT TKA 5. Prior vertebroplasty T12.
[2022-08-06] MEDS: HYDROcodone-acetaminophen 5-325 mg Tablet 1 TAB PO (11:52)
[2022-08-06] MEDS: gabapentin 300 mg Capsule PO ×2 (11:52→23:05)
[2022-08-06] MEDS: enoxaparin 40 mg/0.4 mL Syringe SUBCUT (11:52)
[2022-08-06] MEDS: pantoprazole 40 mg SDV IVP (11:52)
[2022-08-06] MEDS: baclofen 10 mg Tablet PO (12:07)
--- NOTE | 2022-08-06 13:23 | PM.PN ---
Subjective Subjective: Patient was seen this morning, multiple times, early in the morning, she again was in severe pain, tells me that the hydrocodone wears off too soon, Dilaudid works better but she was talking out of her head overnight she was seeing people walk into her room, but she continues to complain of pain, in her left hip, and she does not know what she wants to do about it, she also has some pain in her left back today -Currently she is alert to person, not to place, not to time, is real orientable, can follow commands -She does not know she is in the hospital, but upon going over her medical care she says yes I am in the hospital -She recognizes that she is confused, she thinks is the pain medication -She tells me that she lives at home by herself, she normally can drive, normally uses a moderate-sized wheelchair, can ambulate a bit with a walker -She tells me she does not know what to do, she does not want to have surgery on her hip, but she wants the pain to be controlled she does not know how she is going to get home -She cannot walk, she is in severe pain, -I advised her that going to a custodial for skilled rehab seems as if it is only reasonable option or swing bed -She tells me if I have ever been to a rehab facility? She tells me that it does hell -However she realizes that if she cannot walk, and she has severe pain this might be the only option that is available to her, -She denies any headache, blurry vision, no cough, she has a Sarmiento catheter in place, no weakness, she does have severe pain in her left leg left hip, -I was advised by nursing staff that patient was having some strange behaviors, when they were taking her to bone scan -I came up and saw patient she is alert to person, to place, not to time, it seems as if she was having severe spasms in her left hip, that caused her whole body to shake, no facial droop no slurring of words, no focal weakness, no urinary or bowel incontinence, -She had just received hydrocodone, advised nursing staff to try baclofen to see if that could help with her spasms Vitals/I&O/Wt Last Vital Signs Temp 98.3 F 08/06/22 11:40 Pulse 73 08/06/22 11:40 Resp 17 08/06/22 11:40 BP 126/60 08/06/22 11:40 Pulse Ox 94 08/06/22 11:40 O2 Del Method 08/06/22 11:40 O2 Flow Rate 2 08/05/22 15:43 08/05/22 08/06/22 08/06/22 22:59 06:59 14:59 Intake Total 470 / 1770 240 / 240 Output Total 1200 / 1200 750 / 1950 Balance -730 / 570 -750 / -180 240 / 240 Weight last 48 hrs Weight 68.521 kg Physical Exam Const: COMMON NORMALS: no acute distress Resp: COMMON NORMALS: normal respiratory effort, No retractions, No use of accessory muscles and clear to auscultation bilaterally AUSCULTATION: clear to auscultation bilaterally Cardio: COMMON NORMALS: regular rate, regular rhythm, S1 normal heart sound present and S2 normal heart sound present RATE: regular rate RHYTHM: regular rhythm HEART SOUNDS: S1 normal heart sound present and S2 normal heart sound present GI: COMMON NORMALS: Normal to inspection, nondistended, normoactive bowel sounds present and non-tender Extremity: COMMON NORMALS: no pedal edema Neuro: COMMON NORMALS: CN's II-XII intact bilaterally, no focal motor deficits and no sensory deficits noted Urinary Catheter Management: Sarmiento: Cath Placed During This Visit: yes Reason for Continuing Indwelling Catheter: Required Immobilization for Trauma or Surgery or Anesthesia Urinary Catheter Date of Insertion: 08/04/22 Urinary Catheter Time of Insertion: 15:13 Data 08/05/22 02:32 08/05/22 02:32 Micro: Microbiology 08/04/22 13:00 Blood Culture - Preliminary Blood NEGATIVE TO DATE 08/04/22 12:56 Blood Culture - Preliminary Blood NEGATIVE TO DATE A&P Assessment and plan (1) Intractable pain: (2) Left hip pain: (3) Left low back pain: (4) Lumbar stenosis with neurogenic claudication: (5) History of left hip replacement: (6) History of back surgery: (7) History of CAD (coronary artery disease): (8) History of hypothyroidism: (9) History of hyperlipidemia: (10) History of depression: (11) History of hypertension: (12) History of type 2 diabetes mellitus: (13) Acute encephalopathy: Plan Acute encephalopathy -Likely secondary to pain medication, Dilaudid -She is really orientable -No seizure-like activity -No strokelike activity -However will repeat CBC, CMP, mag, Phos, inflammatory markers, UA, chest x-ray -Placed on Rocephin for possible UTI -Neuro recs, aspiration precautions, night stroke scale -Stop Dilaudid Severe intractable pain -Primarily in the left hip, but also in the left lower back, left lower lumbar spine -It seems as if Dilaudid is causing encephalopathy, confusion, however hydrocodone's does not seem to fully control the pain we will have to find a balance between hydrocodone, baclofen, gabapentin -Etiology unclear -She does have a history of nephrolithiasis, 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 -Renal ultrasound shows moderate left pelvic stasis, hydronephrosis -Spoke to urology bladder is distended, recommended placing Sarmiento catheter, no acute interventions -UA does not really have any evidence of a UTI, does show blood but could be from Sarmiento catheter placement, no significant fevers, no leukocytosis, no creatinine abnormality, CRP 70, procal WNL -She does recently have back surgery, no calf pain, no calf swelling, but she does have increased immobility, venous ultrasound -Order a CPK WNL, ESR 57, CRP 71.7, Pro-Tom within normal limits -severe intractable pain, left hip pain, with history of left hip prosthesis, went over CT scan findings with orthopedic service, went over plain films with orthopedic service, discussed with orthopedic service proceed with bone scans and pain control, would not recommend any surgery at this point or any interventions, she will need to follow-up with tertiary level center if she does want to do any surgery -Hip CT 1. Left hip arthroplasty with long stem endo femoral component. 2. Profound osteopenia. 3. Marked expansion the medullary space between the bone prosthesis interface which could be due to long-term bone demineralization and or combination component loosening. 4. 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 5. Lucency within multiple areas of thin cortical bone at the proximal diaphysis which although could reflect subtle areas of cortical fracture could also be due to profound bone absence and distinction would be difficult. On the basis of appearance, the patient is likely at high risk for displaced fracture injury. -MRI of the lumbar spine Postoperative changes as above.? Operative site small left posterior extradural nonspecific fluid collection (secondary left lateral recess and spinal canal stenosis) without specific evidence of infection.? Contrast-enhanced imaging might add additional useful information if clinically needed.? Multilevel spinal stenosis. Neural foraminal stenoses as above. ? Please see additional findings as above.? -Spoke to Dr. Tapia, nothing acute in the back, pain control -Continue baclofen for muscle spasms, gabapentin 300 mg twice daily -Switch to hydrocodone for pain control -Hold off on Lasix today -Hold off on PT OT until bone scan results can be obtained -Hopefully can start PT OT today -Patient's CODE STATUS she wants to be a DNR/DNI -DVT prophylaxis Lovenox -Continue her aspirin, statin, Coreg, sertraline Attestations Medical Necessity Statement*: Patient requires half position for acute encephalopathy, intractable pain, left hip pain Diagnoses Intractable pain R52 Left hip pain M25.552 Left low back pain M54.50 Lumbar stenosis with neurogenic claudication M48.062 History of left hip replacement Z96.642 History of back surgery Z98.890 History of CAD (coronary artery disease) Z86.79 History of hypothyroidism Z86.39 History of hyperlipidemia Z86.39 History of depression Z86.59 History of hypertension Z86.79 History of type 2 diabetes mellitus Z86.39 Acute encephalopathy G93.40
--- NOTE | 2022-08-06 13:24 | XR_ITS ---
WS: [id number] Exam: XR chest 1V portable [id number] Date/Time of Exam: 08/06/2022 1:39 PM Reason For Exam: ams Comparison 08/05/2022. Chronic interstitial changes noted throughout both lungs with calcified granulomas. Heart size is nor mal. No acute consolidated infiltrates are seen. No pleural effusions. Right-sided apical pleural thi ckening. Monitoring leads superimpose the chest. Signs of vertebral plasty involving a single upper l umbar vertebra bony structures are otherwise intact. XR/XR chest 1V portable [id number] IMPRESSION: 1. Chronic interstitial changes and scattered calcified granulomas. No acute pr ocess is suspected.
--- NOTE | 2022-08-06 13:35 | ECG_ITS ---
[facility] Test Date: 2022-08-06 Pat Name: Taylor Beaver Department: Room: 268 Gender: Female Virtual Recruiter: : 1940 Requested By: Papa Beal Order Number: [id number] Bhakti MD: Agusto Mills M.D. Measurements Intervals [place] Rate: 86 P: 78 IN: 133 QRS: 15 QRSD: 113 T: 74 QT: 385 QTc: 461 Interpretive Statements SINUS RHYTHM MODERATE INTRAVENTRICULAR CONDUCTION DELAY [110+ ms QRS DURATION] Compared to ECG 08/04/2022 13:11:48 Intraventricular conduction delay now present Atrial abnormality no longer present T-wave abnormality no longer present Electronically Signed On 08-06-2022 17:33:39 SHOEMAKER APPRENTICE by Agusto Mills M.D. [id number]
[2022-08-06 14:30] LABS: Basophils % 0.1 %; Eosinophils % 0.1 %; Hematocrit 40.2 % (37.0-47.0); Hemoglobin 12.3 g/dL (11.5-15.3); Lymphocytes # 0.6 10^3/uL (0.8-4.8); Mean Corpuscular HGB Conc 30.6 g/dL (30.0-36.0); Mean Corpuscular Hemoglobin 30.7 pg (28.0-34.0); Mean Corpuscular Volume 100.2 fl (81-99); Monocytes # 0.4 10^3/uL (0.2-0.9); Monocytes % 5.2 %; Neutrophils # 5.83 10^3/uL (1.8-7.7); Nucleated Red Blood Cells % 0 %; Platelet Count 170 10^3/cmm (130-400); Red Blood Count 4.01 10^6/uL (4.1-5.3); Red Cell Distribution Width 14.1 % (12.1-15.1); White Blood Count 6.9 10^3/uL (4.0-10.0)
[2022-08-06 14:49] LABS: Lactate (Lactic Acid level) 1.1 mmol/L (0.5-2.2)
[2022-08-06 14:54] LABS: Troponin(5th) Baseline 12 ng/L (0-10)
--- NOTE | 2022-08-06 15:35 | ECG_ITS ---
[facility] Test Date: 2022-08-06 Pat Name: Taylor Beaver Department: Room: 268 Gender: Female Hydroelectric Station Operator Chief: : 1940 Requested By: Papa Beal Order Number: [id number] Bhakti MD: Agusto Mills M.D. Measurements Intervals [place] Rate: 87 P: 70 ME: 141 QRS: 33 QRSD: 116 T: 83 QT: 370 QTc: 446 Interpretive Statements SINUS RHYTHM MODERATE INTRAVENTRICULAR CONDUCTION DELAY [110+ ms QRS DURATION] Compared to ECG 08/06/2022 14:03:58 No significant changes Electronically Signed On 08-06-2022 17:39:14 FREIGHT MANAGER by Agusto Mills M.D. [id number]
[2022-08-06 16:48] LABS: Alanine Aminotransferase 39 U/L (0-33); Albumin Level 3.4 g/dL (3.5-5.2); Alkaline Phosphatase 166 U/L (35-105); Aspartate Amino Transferase 26 U/L (0-32); Blood Urea Nitrogen 19 mg/dL (8-23); C Reactive Protein 114.7 mg/L (0.0-4.9); Calcium 9.1 mg/dL (8.5-10.5); Carbon Dioxide 21 mmol/L (22-29); Chloride 100 mmol/L (98-107); Globulin 3.5 g/dL (1.3-4.6); Glucose 141 mg/dL (65-115); Osmolality Calculated 291 mOsm/kg (285-295); Phosphorus 2.4 mg/dL (2.5-4.5); Sodium 138 mmol/L (136-145); Total Bilirubin 0.4 mg/dL (0.15-1.2); Total Protein 6.9 g/dL (6.6-8.7)
[2022-08-06 16:49] LABS: Troponin 5 2HR 12.74 ng/L (0-10)
[2022-08-06 17:03] LABS: Troponin 5 2HR Delta 0.74 ABS# (0-10)
[2022-08-06] MEDS: cefTRIAXone 1,000 MG in sodium chloride 0.9% (plus) 50 ML 100 MG IV (17:14)
[2022-08-06 18:03] LABS: Glucose Urine UA Norm (Normal); Ketones Urine 2+ (Negative); Protein Urine 1+ (Negative); Urine Appearance Clear (CLEAR); Urine Color Yellow (Yellow); pH Urine 5 (5-7)
[2022-08-06 18:04] LABS: Add Urine Microscopic? YES; Bilirubin Urine 1+ (Negative); Blood Urine 3+ (Negative); Leukocyte Esterase Urine Negative (Negative); Nitrate Urine Negative (Negative); Urobilinogen Urine Norm (Negative)
[2022-08-06 18:11] LABS: Bacteria Urine TRACE /hpf; Hyaline Casts Urine 0-4 /lpf; Mucus Urine TRACE /hpf; RBC Urine 0-4 /hpf (0-2); Squamous Epithelial Cell Urine RARE /hpf (0-5); WBC Urine 0-4 /hpf (0-5)
--- NOTE | 2022-08-06 19:35 | ECG_ITS ---
[facility] Test Date: 2022-08-06 Pat Name: Taylor Beaver Department: Room: 268 Gender: Female Landing Scaler: : 1940 Requested By: Papa Beal Order Number: [id number] Bhakti MD: Agusto Mills M.D. Measurements Intervals [place] Rate: 92 P: 150 MT: 142 QRS: 56 QRSD: 113 T: 150 QT: 370 QTc: 459 Interpretive Statements ECTOPIC ATRIAL RHYTHM POSSIBLE LEFT ATRIAL ENLARGEMENT [-0.1mV P-WAVE IN V1/V2] MODERATE INTRAVENTRICULAR CONDUCTION DELAY [110+ ms QRS DURATION] ABNORMAL QRS-T ANGLE [QRS-T AXIS DIFFERENCE > 60] Compared to ECG 08/06/2022 15:15:57 Ectopic atrial rhythm now present Sinus rhythm no longer present Electronically Signed On 08-07-2022 10:29:50 MEDICAL DOCTOR NUCLEAR MEDICINE by Agusto Mills M.D. [id number]
[2022-08-06 20:45] LABS: Troponin 5 6HR 11.93 ng/L (0-10)
[2022-08-06 20:47] LABS: Troponin 5 6HR Delta -0.07 ng/L (0-12)
[2022-08-07] VITALS (8 sets, daily range): BP systolic 119–168; BP diastolic 70–84; PULSE 77–82; RESP 15–20; TEMP 36.5–37.2; O2SAT 90–97
[2022-08-07] MEDS: HYDROcodone-acetaminophen 5-325 mg Tablet 1 TAB PO (02:35)
--- NOTE | 2022-08-07 10:08 | PC.SOCIAL ---
IMM update IMM updated with patient. Copy page 2 provided. Verbalized understanding. Initial,dated,timed and placed in chart.
[2022-08-07] MEDS: oxyCODONE 5 mg IR Tab/Cap PO ×2 (10:20→22:09)
[2022-08-07] MEDS: enoxaparin 40 mg/0.4 mL Syringe SUBCUT (11:54)
--- NOTE | 2022-08-07 16:49 | P.MISC_ITS ---
Miscellaneous Note Purpose of Documentation: I was consulted for pain control assistance. Patient is currently asleep and can not be interviewed per RN. Will write brief synopsis and plan and full consult to follow tomorrow. 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 She continues to have L hip pain and sought further surgical intervention. Patient has lumbar surgery 08/01 for lumbar stenosis and radicular pain thought to be responsible for L hip pain. Patient continues to complain of hip pain and if further surgery could be done on that hip it would require a specialist in revision repair. History is taken from Dr. Beal, Yani RN and chart. Pt has received higher dosing of fentanyl without significiant relief. Dilaudid eased the pain however then pt was excessively sleepy and even delirious. Currently patient is on oxycodone. After speaking to Yani GARCIA pt is impulsive and likes to move independently. Once she took the oxycodone ordered her pain was relieved completely. As stated she is sleeping and Yani reports that pt denies any pain at rest. At this point I recommend: * continue oxycodone q4 hr and medicate prior to therapy or planned time up to chair. * since pain is periodic I do not want to start a long acting opiod at this time * I will add Celebrex higher dosing than typical to help with inflammation and pain to continue indefinetly * I will restart zoloft as withdrawal symptoms may start to occur making pain control even more challenging Full consult to follow in am. Thank you for allowing me to participate in the care of your patient. Call me with any concerns. Dr. Clark
--- NOTE | 2022-08-07 17:00 | P.PN_ITS ---
Subjective Subjective: - Patient was seen this morning -She continues to have severe pain with the hydrocodone, I was told by nursing staff that they can hear her crying outside her room due to pain -I had switch her to oxycodone -According during my examination, she is a bit drowsy she has just received oxycodone -I had a detailed discussion with patient -I discussed with her what her future plans are, what her wishes are -She tells me that she wants to go home, she has a dog at home, she wants to be with, and her friend cannot take care of her dog anymore -She is very confused abnormal on her recent back surgery -She felt that the back surgery should have helped with the hip -But she continues to have severe intractable pain -I was upfront and honest with patient, about her bone scan, and her CTs findings, after detailed discussion with orthopedic service, she has a complex prosthesis -I discussed bone scan findings, no second and radiographic evidence of infection, but could be loosening at the prosthetic head -But these are likely chronic -Patient currently is having complex pain, difficult to manage I discussed with patient about having pain consultation, with Dr. Castañeda, she is agreeable -If she does want to do surgery, this would be a complicated surgery requiring consultation at a tertiary level center at [facility], or hospital of her choosing -However she tells me after her present experience she does not want to have anymore surgery -She wants us to try to control her pain, have her get up and move around with her physical therapy -The plan is is that if she is still difficult to ambulate, continues to have intractable pain, inability to bear weight she is agreeable to get rehab at a senior care facility -But if she is able to ambulate more, pain is better controlled, then she is agreeable to go home -She is alert oriented x3, following all commands, her encephalopathy has resolved UA is relatively clear blood cultures are clear although I have on Rocephin for now chest x-ray no pneumonia I think confusion episodes are likely secondary to pain medication -I advised I have done my best fentanyl did not help her pain, the Dilaudid worked quite well that she was using it every 2 hours and it was making her very drowsy, hydrocodone was not good enough, she continued to have pain and now the oxycodone is working but again she is becoming drowsy so I am going to need help in managing her pain, and managing her expectations -She is quite disheartened, quite upset, but I had again a very detailed and lengthy discussion with her about her back surgery, her present condition of her hip, my extensive work-up to rule out any other causes her current pain, her c urrent predicament but she has trouble grasping at, trouble accepting it, I apologized Vitals/I&O/Wt Last Vital Signs Temp 97.9 F 08/07/22 12:00 Pulse 78 08/07/22 12:00 Resp 18 08/07/22 12:00 BP 139/84 08/07/22 12:00 Pulse Ox 92 08/07/22 12:00 O2 Del Method 08/07/22 12:00 O2 Flow Rate 2 08/07/22 04:00 08/07/22 08/07/22 08/07/22 06:59 14:59 22:59 Intake Total 120 / 120 Output Total 450 / 950 Balance -450 / -660 120 / 120 Physical Exam Const: COMMON NORMALS: no acute distress and patient oriented x3 Resp: COMMON NORMALS: normal respiratory effort, No retractions, No use of accessory muscles and clear to auscultation bilaterally AUSCULTATION: clear to auscultation bilaterally Cardio: COMMON NORMALS: regular rate, regular rhythm, S1 normal heart sound present and S2 normal heart sound present RATE: regular rate RHYTHM: regular rhythm HEART SOUNDS: S1 normal heart sound present and S2 normal heart sound present GI: COMMON NORMALS: Normal to inspection, nondistended, normoactive bowel sounds present and non-tender Back/Pelvis: OTHER: On examination, left hip, decreased range of motion significant pain with range of motion tenderness prostatic head, femoral shaft Extremity: COMMON NORMALS: no pedal edema Neuro: COMMON NORMALS: patient oriented x3 Psych: COMMON NORMALS: mental status grossly normal Urinary Catheter Management: Sarmiento: Cath Placed During This Visit: yes Reason for Continuing Indwelling Catheter: Required Immobilization for Trauma or Surgery or Anesthesia Urinary Catheter Date of Insertion: 08/04/22 Urinary Catheter Time of Insertion: 15:13 Data 08/06/22 14:10 08/06/22 14:10 A&P Assessment and plan (1) Intractable pain: (2) Left hip pain: (3) Left low back pain: (4) Lumbar stenosis with neurogenic claudication: (5) History of left hip replacement: (6) History of back surgery: (7) History of CAD (coronary artery disease): (8) History of hypothyroidism: (9) History of hyperlipidemia: (10) History of depression: (11) History of hypertension: (12) History of type 2 diabetes mellitus: (13) Acute encephalopathy: Plan Acute encephalopathy -Likely secondary to pain medication, Dilaudid -She is really orientable -No seizure-like activity -No strokelike activity -However will repeat CBC, CMP, mag, Phos, inflammatory markers, UA, chest x-ray -Placed on Rocephin for possible UTI -Neuro recs, aspiration precautions, night stroke scale -Stop Dilaudid Severe intractable pain -Primarily in the left hip, but also in the left lower back, left lower lumbar spine -It seems as if Dilaudid is causing encephalopathy, confusion, however hydrocodone's does not seem to fully control the pain we will have to find a balance between hydrocodone, baclofen, gabapentin -Etiology unclear -She does have a history of nephrolithiasis, the CT of her lumbar spine did nut picker a kidney stone on the left -Renal ultrasound shows moderate left pelvic stasis, hydronephrosis -Spoke to urology bladder is distended, recommended placing Sarmiento catheter, no acute interventions -UA does not really have any evidence of a UTI, does show blood but could be from Sarmiento catheter placement, no significant fevers, no leukocytosis, no creatinine abnormality, CRP 70, procal WNL -She does recently have back surgery, no calf pain, no calf swelling, but she does have increased immobility, venous ultrasound -Order a CPK WNL, ESR 57, CRP 71.7, Pro-Tom within normal limits -severe intractable pain, left hip pain, with history of left hip prosthesis, went over CT scan findings with orthopedic service, went over plain films with orthopedic service, discussed with orthopedic service proceed with bone scans and pain control, would not recommend any surgery at this point or any interventions, she will need to follow-up with tertiary level center if she does want to do any surgery -Hip CT 1. Left hip arthroplasty with long stem endo femoral component. 2. Profound osteopenia. 3. Marked expansion the medullary space between the bone prosthesis interface which could be due to long-term bone demineralization and or combination component loosening. 4. 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 5. Lucency within multiple areas of thin cortical bone at the proximal diaphysis which although could reflect subtle areas of cortical fracture could also be due to profound bone absence and distinction would be difficult. On the basis of appearance, the patient is likely at high risk for displaced fracture injury. -MRI of the lumbar spine Postoperative changes as above.? Operative site small left posterior extradural nonspecific fluid collection (secondary left lateral recess and spinal canal stenosis) without specific evidence of infection.? Contrast-enhanced imaging might add additional useful information if clinically needed.? Multilevel spinal stenosis. Neural foraminal stenoses as above. ? Please see additional findings as above.? -bone scan 1.? Normal blood flow and blood pool images. No evidence of osteomyelitis. 2.? Diffuse symmetric cortical uptake about the LEFT femoral vika prosthesis compatible with chronic bony remodeling and loosening 3.? No suspicious areas of activity LEFT femur or hip to indicate acute stress fracture. 4.? Prior postoperative changes LEFT TKA 5.? Prior vertebroplasty T12. -Spoke to Dr. Tapia, nothing acute in the back, pain control -Continue baclofen for muscle spasms, gabapentin 300 mg twice daily -Switch to oxycodone for pain control -Hold off on Lasix today -Consult Dr. Castañeda, painmanagment/palliative care -PT OT -Up out of bed into a chair -Patient's CODE STATUS she wants to be a DNR/DNI -DVT prophylaxis Lovenox -Continue her aspirin, statin, Coreg, sertraline Attestations Medical Necessity Statement*: Hospitalization for hip pain, back pain, intractable pain, Diagnoses Intractable pain R52 Left hip pain M25.552 Left low back pain M54.50 Lumbar stenosis with neurogenic claudication M48.062 History of left hip replacement Z96.642 History of back surgery Z98.890 History of CAD (coronary artery disease) Z86.79 History of hypothyroidism Z86.39 History of hyperlipidemia Z86.39 History of depression Z86.59 History of hypertension Z86.79 History of type 2 diabetes mellitus Z86.39 Acute encephalopathy G93.40
[2022-08-07] MEDS: sertraline 100 mg Tablet 200 MG PO (18:37)
[2022-08-07] MEDS: cefdinir 300 MG CAPSULE PO (18:38)
[2022-08-07] MEDS: CELEcoxib 200 mg Capsule PO (18:38)
--- NOTE | 2022-08-07 18:39 | PC.NURSE ---
pt pulled out her iv, notified and okayed no iv at this time.
[2022-08-07] MEDS: gabapentin 300 mg Capsule PO (22:09)
[2022-08-07] MEDS: baclofen 10 mg Tablet PO (22:10)
[2022-08-08] VITALS (9 sets, daily range): BP systolic 144–185; BP diastolic 69–81; PULSE 71–78; RESP 15–26; TEMP 36.4–37.2; O2SAT 15–94
[2022-08-08] MEDS: oxyCODONE 5 mg IR Tab/Cap PO ×3 (04:11→20:15)
[2022-08-08] MEDS: levothyroxine 112 mcg Tablet PO (06:26)
--- NOTE | 2022-08-08 07:24 | P.PN_ITS ---
Subjective Subjective: Patient is resting comfortably this morning. I woke her to discuss her condition she continues to complain of left hip pain. Left leg pain. This is postop day 6 from her left-sided L3-4 decompression but she states that she has not had back surgery only left hip surgery. Patient does seem somewhat confused again this morning. Vitals/I&O/Wt Last Vital Signs Temp 97.8 F 08/08/22 04:00 Pulse 73 08/08/22 04:00 Resp 20 H 08/08/22 04:11 BP 154/79 08/08/22 04:00 Pulse Ox 93 08/08/22 04:11 O2 Del Method 08/08/22 04:00 O2 Flow Rate 2 08/07/22 20:00 08/07/22 08/08/22 08/08/22 22:59 06:59 14:59 Intake Total 120 / 240 360 / 600 Output Total 600 / 600 Balance 120 / 240 -240 / 0 Physical Exam Narrative: Incision in the lumbar spine is well-healed. She does have mild palpatory pain over the left hip mild logroll on the left compared to the n egative on the right. Skin is clear warm feet are in good cap refill calves are supple no medial thigh tenderness. Dorsalis pedis and posterior tibial pulses are palpable. Urinary Catheter Management: Sarmiento: Cath Placed During This Visit: yes Reason for Continuing Indwelling Catheter: Other Urinary Catheter Date of Insertion: 08/04/22 Urinary Catheter Time of Insertion: 15:13 Data 08/06/22 14:10 08/06/22 14:10 A&P Assessment and plan (1) Encounter for postoperative care: From a spine standpoint physical therapy can work with mobilizing. Would encourage nerve glide exercises as well. From an orthopedic spine standpoint okay to discharge when medically stable. We will see her back in the office in 1 week's time for wound check. (2) Status post lumbar laminectomy: (3) History of left hip replacement: Attestations Medical Necessity Statement*: Defer to medical team Coding Level of Care Code Acute Code for Chg Fwd Diagnoses Encounter for postoperative care Z48.89 Status post lumbar laminectomy Z98.890 History of left hip replacement Z96.642
--- NOTE | 2022-08-08 08:35 | PM.CONSULT ---
Providers/Reason For Consult Consulting Physician/Specialty*: Palliative Medicine Reason for Consult*: Assist with pain managment NOTE: CONSULT COMPLETED VIA TELEHEALTH WITH AUDIO AND VISUAL. MS STACY CONSENTED. Requesting Physician: Dr. Beal Attending Physician: Papa Beal MD Primary Care Provider: Deepa Kaufman NP History of Present Illness History of Present Illness Taylor Beaver is a 82 year old female with hyperlipidemia, ? hx of CAD, GERD and depression. She is admittedly confused, but tells me about her most recent surgery with Dr. Tapia. She thought she had hip surgery, but reports that they discussed spine surgery. She reports there is no improvement in her left hip pain. She reports that she wants to be able to walk with walker at least or she hopes the good Lord would take her home . Current pain level while in bed is 6/10 and when she attempts to ambulate 20/10. She reports she did have leg pain, but not that much today. Moving makes it significantly worse. At rest, pain is tolerable. the pain medication is helping some. She is a bit emotional. When asked about family-she said she didn't have any. When specifically asked about children she said I have one that was taken home and a daughter in [place], but I dont have the number . Afterwards she started reporting nausea and said all this makes me so upset . She gave permission for me to call her friend. Review of Systems Narrative: +nausea with phlegm, + left hip pain. Denies cp, sob or changes in bowel +confusion Medications/Allergies Home Medications Medication Instructions Recorded Confirmed Last Taken Type aspirin 81 mg tablet,delayed 81 mg PO DAILY 04/30/22 08/04/22 05/25/22 History release atorvastatin 40 mg tablet 40 mg PO QAM 04/30/22 08/04/22 08/01/22 09:00 History carvedilol 3.125 mg tablet 3.125 mg PO QAM 04/30/22 08/04/22 08/01/22 09:00 History metoprolol tartrate 25 mg tablet 25 mg PO QAM 04/30/22 08/04/22 08/01/22 09:00 History pantoprazole 40 mg tablet,delayed 40 mg PO QAM 04/30/22 08/04/22 08/01/22 09:00 History release sertraline 200 mg capsule 200 mg PO QAM 04/30/22 08/04/22 08/01/22 09:00 History hydrocodone 5 mg-acetaminophen 325 1 - 2 tab PO .Q4-6H #40 tabs 08/02/22 08/04/22 08/04/22 05:00 Rx mg tablet 2 tabs levothyroxine 112 mcg tablet 112 mcg PO QAM 08/04/22 08/04/22 Unknown History Allergies Allergy/AdvReac Type Severity Reaction Status Date / Time No Known Allergies Allergy Verified 08/04/22 07:45 Current Medications Generic Name Dose Route Start Last Admin Trade Name Freq PRN Reason Stop Dose Admin Baclofen 10 mg 08/04/22 11:04 08/07/22 22:10 Baclofen 10 Mg Tablet PO 10 mg QID PRN Administration hip pain, back pain Cefdinir 300 mg 08/07/22 18:00 08/07/22 18:38 Cefdinir 300 Mg Capsule PO 300 mg BID IDA Administration Protocol Celecoxib 200 mg 08/07/22 18:00 08/07/22 18:38 Celecoxib 200 Mg Capsule PO 200 mg BID IDA Administration Enoxaparin Sodium 40 mg 08/04/22 11:00 08/07/22 11:54 Enoxaparin 40 Mg/0.4 Ml Syringe SUBCUT 40 mg Q24H IDA Administration Gabapentin 300 mg 08/04/22 11:15 08/07/22 22:09 Gabapentin 300 Mg Capsule PO 300 mg Q12H IDA Administration Levothyroxine Sodium 112 mcg 08/08/22 06:00 08/08/22 06:26 Levothyroxine 112 Mcg Tablet PO 112 mcg QAM IDA Administration Ondansetron HCl 4 mg 08/05/22 10:43 08/05/22 13:32 Ondansetron 2 Mg/Ml Sdv 2 Ml IVP 4 mg Q4H PRN Administration NAUSEA AND VOMITING Oxycodone HCl 5 mg 08/07/22 08:53 08/08/22 04:11 Oxycodone 5 Mg Ir Tab/Cap PO 5 mg Q4H PRN Administration MODERATE PAIN Pantoprazole Sodium 40 mg 08/04/22 11:00 08/07/22 11:56 Pantoprazole 40 Mg Sdv IVP Not Given Q24H IDA Sertraline HCl 200 mg 08/07/22 18:00 08/07/22 18:37 Sertraline 100 Mg Tablet PO 200 mg QPM IDA Administration PFSH Acute PFSH: Medical History History of CAD (coronary artery disease) History of depression History of hyperlipidemia History of hypertension History of hypothyroidism History of nephrolithiasis History of type 2 diabetes mellitus Lumbar stenosis with neurogenic claudication Surgical History History of back surgery History of heart artery stent History of left hip replacement Family History Mother CAD (coronary artery disease) Social History Smoking and tobacco status: never smoked Alcohol intake: never Substance/Drug Use: never Vitals/I&O/Wt Last Vital Signs Temp 97.5 F L 08/08/22 07:42 Pulse 71 08/08/22 07:42 Resp 15 08/08/22 07:42 BP 144/69 08/08/22 07:42 Pulse Ox 93 08/08/22 07:42 O2 Del Method 08/08/22 07:42 O2 Flow Rate 2 08/07/22 20:00 08/07/22 08/08/22 08/08/22 22:59 06:59 14:59 Intake Total 120 / 240 360 / 600 Output Total 600 / 600 Balance 120 / 240 -240 / 0 Physical Exam Narrative: Elderly female in mild to moderate emotional distress. She becomes nauseated after talking about family. She appears well nurished and well hydrated. No obesity Urinary Catheter Management: Sarmiento: Cath Placed During This Visit: yes Reason for Continuing Indwelling Catheter: Other Urinary Catheter Date of Insertion: 08/04/22 Urinary Catheter Time of Insertion: 15:13 Data 08/06/22 14:10 08/06/22 14:10 Other data: Reviewed reports of left hip xray and CT showing severe osteopenia and incomplete alignment of prothetic A&P Assessment and plan (1) Acute pain of left hip: (2) Nausea: (3) Emotional crisis: Plan Pain: After discussion with patient, pain is continuous. will consider long acting patch or medication to control pain at rest. However, for now pt has confusion and this is distressing to her as well and would like to observe a few more days with regimen of oxycodone prn. REGARDING HIP ANATOMY. It appears that osteopenia is limiting for further surgery, D/W Dr. Beal. Recommend virtual consult to review films from a specialist in double hip revisions. nausea: patient reports that she has not cried about the confusion over having spine surgery vs left hip surgery. She was encouraged to allow those emotions. she is receiving zofran. I will add low dose ativan for suspected anxiety induced nausea and will follow expectantly. emotional distress: prayer given by Pastor Spencer and will consult mold bunch trimmer for further visits. given permission to call friend to visit and help make decisions. pt would benefit from distraction techniques. will attempt to provide. Consult Attestations Medical Necessity Statement: per attending Coding Level of Care Code Acute Code for Mariano Fritz Diagnoses Acute pain of left hip M25.552 Nausea R11.0 Emotional crisis F43.20
[2022-08-08] MEDS: CELEcoxib 200 mg Capsule PO ×2 (10:09→18:22)
[2022-08-08] MEDS: cefdinir 300 MG CAPSULE PO ×2 (10:09→18:22)
--- NOTE | 2022-08-08 10:10 | P.PN_ITS ---
Subjective Subjective: - Patient was seen this morning -She is quite teary, she tells me that if she were to in bed, she would go up to heaven and she would not be in pain, and her passing away and going to her heavenly Lord would be the best thing for her -She denies any suicidal ideation, homicidal ideation -But she is quite depressed and teary that she is now bedbound, laying in bed and pain, she does not know what to do -She feels that she is lost a lot of autotomy -She tells me that originally she is from [place], she actually has 2 kids, 1 over children her son in his 20s from diabetes, she actually lived in [place] for many years with her , that is where she had her hip surgery and revision somewhere near [place] but she does not remember the physician's names, she does not remember the hospital name, but eventually she moved out to [place] to be with her daughter, then her , and then she moved back to [place] to come back to her home, she does have a friend but no other close family members, she is actually not even in close contact with her daughter she does not even know now where her daughter lives or her contact number -She tells me that the pain does come on in bursts, but the oxycodone seems to work -She is just very upset , and confused about her back surgery as she thought it was for her hip -Her expectation was that her hip pain after surgery would have resolved, and she would be able to function more -Now she feels that she is completely gone the other way and she is not functional and she is bedbound, and she is here left to essentially in her own words -She tells me that no one is here to help her except God, -I again had a quite a detailed discussion with her about her spine surgery, I am avoiding the term back surgery and she seems to get that confused with her hip, and discussed that surgery was a L3-L4 laminectomy, and there is no surgery done on her hip during her August 02, 2022 surgery -She then tells me that in detail about her discussion with Dr. tapia, and she explains what he told her about the surgery and how her back looks on the images -but then she comes back circling around and saying to me that that [facility]ille is not a spine surgeon he is a hip surgeon, I did tell her that Dr. Tapia does operate on hips, but he did not operate on her hip, but it was a spine surgery that was done -She was hoping to speak to Dr. Tapia Vitals/I&O/Wt Last Vital Signs Temp 97.5 F L 08/08/22 07:42 Pulse 71 08/08/22 07:42 Resp 15 08/08/22 07:42 BP 144/69 08/08/22 07:42 Pulse Ox 93 08/08/22 07:42 O2 Del Method 08/08/22 07:42 O2 Flow Rate 2 08/07/22 20:00 08/07/22 08/08/22 08/08/22 22:59 06:59 14:59 Intake Total 120 / 240 360 / 600 Output Total 600 / 600 Balance 120 / 240 -240 / 0 Physical Exam Const: COMMON NORMALS: no acute distress and patient oriented x3 Resp: COMMON NORMALS: normal respiratory effort, No retractions, No use of accessory muscles and clear to auscultation bilaterally AUSCULTATION: clear to auscultation bilaterally Cardio: COMMON NORMALS: regular rate, regular rhythm, S1 normal heart sound present and S2 normal heart sound present RATE: regular rate RHYTHM: regular rhythm HEART SOUNDS: S1 normal heart sound present and S2 normal heart sound present GI: COMMON NORMALS: Normal to inspection, nondistended, normoactive bowel sounds present and non-tender Extremity: COMMON NORMALS: no pedal edema Neuro: COMMON NORMALS: patient oriented x3 Psych: COMMON NORMALS: mental status grossly normal, denies homicidal ideation and denies suicidal ideation MOOD & AFFECT: Yes depressed mood and Yes tearful Urinary Catheter Management: Sarmiento: Cath Placed During This Visit: yes Reason for Continuing Indwelling Catheter: Other Urinary Catheter Date of Insertion: 08/04/22 Urinary Catheter Time of Insertion: 15:13 Data 08/06/22 14:10 08/06/22 14:10 A&P Assessment and plan (1) Intractable pain: (2) Left hip pain: (3) Left low back pain: (4) Lumbar stenosis with neurogenic claudication: (5) History of left hip replacement: (6) History of back surgery: (7) History of CAD (coronary artery disease): (8) History of hypothyroidism: (9) History of hyperlipidemia: (10) History of depression: (11) History of hypertension: (12) History of type 2 diabetes mellitus: (13) Acute encephalopathy: (14) Depression: Plan Acute encephalopathy -Resolving -Likely secondary to pain medication, but improving -No seizure-like activity -No strokelike activity -Placed on Rocephin for possible UTI -Neuro recs, aspiration precautions, night stroke scale Severe intractable pain -Primarily in the left hip, but also in the left lower back, left lower lumbar spine -It seems as if Dilaudid is causing encephalopathy, confusion, however hydrocodone's does not seem to fully control the pain we will have to find a balance between hydrocodone, baclofen, gabapentin -She does not have suicidal ideation, no homicide nation, no plan, but she does believe that she would be better off with her heavenly father then being so much pain and may be passing away would not be a bad thing as she is in so much pain, and she is bedridden and she has lost her autotomy -Etiology unclear -She does have a history of nephrolithiasis, the CT of her lumbar spine did supervisor picking crew a kidney stone on the left -Renal ultrasound shows moderate left pelvic stasis, hydronephrosis -Spoke to urology bladder is distended, recommended placing Sarmiento catheter, no acute interventions -UA does not really have any evidence of a UTI, does show blood but could be from Sarmiento catheter placement, no significant fevers, no leukocytosis, no creatinine abnormality, CRP 70, procal WNL -She does recently have back surgery, no calf pain, no calf swelling, but she does have increased immobility, venous ultrasound -Order a CPK WNL, ESR 57, CRP 71.7, Pro-Tom within normal limits -severe intractable pain, left hip pain, with history of left hip prosthesis, went over CT scan findings with orthopedic service, went over plain films with orthopedic service, discussed with orthopedic service proceed with bone scans and pain control, would not recommend any surgery at this point or any interventions, she will need to follow-up with tertiary level center if she does want to do any surgery -Hip CT 1. Left hip arthroplasty with long stem endo femoral component. 2. Profound osteopenia. 3. Marked expansion the medullary space between the bone prosthesis interface which could be due to long-term bone demineralization and or combination component loosening. 4. 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 5. Lucency within multiple areas of thin cortical bone at the proximal diaphysis which although could reflect subtle areas of cortical fracture could also be due to profound bone absence and distinction would be difficult. On the basis of appearance, the patient is likely at high risk for displaced fracture injury. -MRI of the lumbar spine Postoperative changes as above.? Operative site small left posterior extradural nonspecific fluid collection (secondary left lateral recess and spinal canal stenosis) without specific evidence of infection.? Contrast-enhanced imaging might add additional useful information if clinically needed.? Multilevel spinal stenosis. Neural foraminal stenoses as above. ? Please see additional findings as above.? -bone scan 1.? Normal blood flow and blood pool images. No evidence of osteomyelitis. 2.? Diffuse symmetric cortical uptake about the LEFT femoral vika prosthesis compatible with chronic bony remodeling and loosening 3.? No suspicious areas of activity LEFT femur or hip to indicate acute stress fracture. 4.? Prior postoperative changes LEFT TKA 5.? Prior vertebroplasty T12. -Spoke to Dr. Tapia, this morning, he will come by and talk to patient about her surgery -Continue baclofen for muscle spasms, gabapentin 300 mg twice daily -Continue oxycodone for pain control -Consult Dr. Castañeda, painmanagment/palliative care -Ativan as needed for anxiety -PT OT -Up out of bed into a chair -Patient's CODE STATUS she wants to be a DNR/DNI -DVT prophylaxis Lovenox -Continue her aspirin, statin, Coreg, sertraline Attestations Medical Necessity Statement*: Patient requires hospitalization for intractable pain, Coding Level of Care Code Acute Code for Chg Fwd Diagnoses Intractable pain R52 Left hip pain M25.552 Left low back pain M54.50 Lumbar stenosis with neurogenic claudication M48.062 History of left hip replacement Z96.642 History of back surgery Z98.890 History of CAD (coronary artery disease) Z86.79 History of hypothyroidism Z86.39 History of hyperlipidemia Z86.39 History of depression Z86.59 History of hypertension Z86.79 History of type 2 diabetes mellitus Z86.39 Acute encephalopathy G93.40 Depression F32.A
[2022-08-08] MEDS: enoxaparin 40 mg/0.4 mL Syringe SUBCUT (12:03)
[2022-08-08] MEDS: LORazepam 0.5 mg Tablet PO ×2 (15:04→20:15)
[2022-08-08] MEDS: sertraline 100 mg Tablet 200 MG PO (18:22)
[2022-08-08] MEDS: baclofen 10 mg Tablet PO (20:15)
[2022-08-09] VITALS (8 sets, daily range): BP systolic 101–149; BP diastolic 57–80; PULSE 58–77; RESP 16–24; TEMP 36.7–37.3; O2SAT 84–97
[2022-08-09] MEDS: gabapentin 300 mg Capsule PO ×3 (00:18→23:51)
[2022-08-09] MEDS: levothyroxine 112 mcg Tablet PO (05:04)
--- NOTE | 2022-08-09 09:04 | PM.PN ---
Subjective Subjective: Spoke to patient yesterday about her spine she understood. Explained to her likely lower this pain is probably due to the hip being loose inside of the bone of the femur. She seemed understand. Vitals/I&O/Wt Last Vital Signs Temp 98.0 F 08/09/22 07:34 Pulse 58 L 08/09/22 07:34 Resp 16 08/09/22 07:34 BP 120/80 08/09/22 07:34 Pulse Ox 90 08/09/22 07:34 O2 Del Method 08/09/22 07:34 O2 Flow Rate 2 08/09/22 04:00 08/08/22 08/09/22 08/09/22 22:59 06:59 14:59 Intake Total 840 / 1080 300 / 1380 Output Total 550 / 550 Balance 290 / 530 300 / 830 Physical Exam Urinary Catheter Management: Sarmiento: Cath Placed During This Visit: yes Reason for Continuing Indwelling Catheter: Other Urinary Catheter Date of Insertion: 08/04/22 Urinary Catheter Time of Insertion: 15:13 Data 08/06/22 14:10 08/06/22 14:10 A&P Assessment and plan (1) Status post lumbar laminectomy: No complaints of back pain today we will have her follow-up in clinic in 2 weeks. Attestations Medical Necessity Statement*: per primary Coding Level of Care Code Acute Code for Chg Fwd Diagnoses Status post lumbar laminectomy Z98.890
--- NOTE | 2022-08-09 09:38 | PC.SOCIAL ---
IMM update IMM updated with patient. Copy Pg 2 provided. Initialled, dated, timed, and placed in chart.
--- NOTE | 2022-08-09 10:45 | FL_ITS ---
WS: [id number] Exam: FL barium swallow modifd [id number] Date/Time of Exam: 08/09/2022 10:55 AM Reason For Exam: Pharyngoesoph. dysphagia Fluoroscopy time: 3min [id number] minutes # of spot films: 2 The exam was performed in conjunction with the speech therapy service. The patient tolerated thin liquid, nectar consistency, pudding consistency and solid barium mixture f oodstuffs without penetration or aspiration. The patient swallowed a barium tablet without complicati on. Incidentally noted during the exam is dilatation of the lower 50% of the esophagus with the spasm and poor motility. This may represent achalasia. Recommendations: Endoscopic evaluation of the esophagus and/or detailed complete barium swallow shoul d be considered for further workup. A separate report of findings and recommendations will follow from the speech therapy service. FL/FL barium swallow modifd [id number] IMPRESSION: 1. Modified barium swallow demonstrating no evidence of aspiration or penetrati on into the laryngeal inlet. 2. Abnormal dilatation of the lower 50% of the esophagus with retention of the fluid and spasm. This may represent achalasia.
[2022-08-09] MEDS: ondansetron 4 MG Tablet PO (10:49)
[2022-08-09] MEDS: oxyCODONE 5 mg IR Tab/Cap PO (10:49)
[2022-08-09] MEDS: enoxaparin 40 mg/0.4 mL Syringe SUBCUT (10:50)
[2022-08-09] MEDS: cefdinir 300 MG CAPSULE PO ×2 (10:50→18:00)
[2022-08-09] MEDS: CELEcoxib 200 mg Capsule PO ×2 (10:50→18:00)
--- NOTE | 2022-08-09 12:07 | PM.PN ---
Subjective Subjective: - Patient was seen this morning, she does awaken, has complaints of nausea, no fevers, chills, no chest pain, she continues to have complaints of hip pain -I spoke to speech therapy, had a modified barium swallow done, high risk of aspiration, will proceed with a barium swallow -I also called [facility] yesterday for consultation with orthopedic service, for consideration of surgical intervention however I have not received a call back from the surgeon yet, awaiting phone call Vitals/I&O/Wt Last Vital Signs Temp 98.0 F 08/09/22 07:34 Pulse 58 L 08/09/22 07:34 Resp 16 08/09/22 10:49 BP 120/80 08/09/22 07:34 Pulse Ox 90 08/09/22 07:34 O2 Del Method 08/09/22 07:34 O2 Flow Rate 2 08/09/22 08:00 08/08/22 08/09/22 08/09/22 22:59 06:59 14:59 Intake Total 840 / 1080 300 / 1380 240 / 240 Output Total 550 / 550 Balance 290 / 530 300 / 830 240 / 240 Physical Exam Const: COMMON NORMALS: no acute distress ORIENTATION/CONSCIOUSNESS: Yes awake and Yes oriented to person; not oriented to place and not oriented to time Resp: COMMON NORMALS: normal respiratory effort, No retractions, No use of accessory muscles and clear to auscultation bilaterally AUSCULTATION: clear to auscultation bilaterally Cardio: COMMON NORMALS: regular rate, regular rhythm, S1 normal heart sound present and S2 normal heart sound present RATE: regular rate RHYTHM: regular rhythm HEART SOUNDS: S1 normal heart sound present and S2 normal heart sound present GI: COMMON NORMALS: Normal to inspection, nondistended, normoactive bowel sounds present and non-tender Extremity: COMMON NORMALS: no pedal edema Neuro: SENSORIUM/ORIENTATION: Yes oriented to person, No oriented to place and No oriented to time Urinary Catheter Management: Sarmiento: Cath Placed During This Visit: yes Reason for Continuing Indwelling Catheter: Other Urinary Catheter Date of Insertion: 08/04/22 Urinary Catheter Time of Insertion: 15:13 Data 08/06/22 14:10 08/06/22 14:10 A&P Assessment and plan (1) Intractable pain: (2) Left hip pain: (3) Left low back pain: (4) Lumbar stenosis with neurogenic claudication: (5) History of left hip replacement: (6) History of back surgery: (7) History of CAD (coronary artery disease): (8) History of hypothyroidism: (9) History of hyperlipidemia: (10) History of depression: (11) History of hypertension: (12) History of type 2 diabetes mellitus: (13) Acute encephalopathy: (14) Depression: (15) Dysphagia: Plan Acute encephalopathy -Resolving -Likely secondary to pain medication, but improving -No seizure-like activity -No strokelike activity -Placed on Rocephin for possible UTI -Neuro recs, aspiration precautions, night stroke scale Severe intractable pain -Primarily in the left hip, but also in the left lower back, left lower lumbar spine -It seems as if Dilaudid is causing encephalopathy, confusion, however hydrocodone's does not seem to fully control the pain we will have to find a balance between hydrocodone, baclofen, gabapentin -She does not have suicidal ideation, no homicide nation, no plan, but she does believe that she would be better off with her heavenly father then being so much pain and may be passing away would not be a bad thing as she is in so much pain, and she is bedridden and she has lost her autotomy -Etiology unclear -She does have a history of nephrolithiasis, the CT of her lumbar spine did pick up driver a kidney stone on the left -Renal ultrasound shows moderate left pelvic stasis, hydronephrosis -Spoke to urology bladder is distended, recommended placing Sarmiento catheter, no acute interventions -UA does not really have any evidence of a UTI, does show blood but could be from Sarmiento catheter placement, no significant fevers, no leukocytosis, no creatinine abnormality, CRP 70, procal WNL -She does recently have back surgery, no calf pain, no calf swelling, but she does have increased immobility, venous ultrasound -Order a CPK WNL, ESR 57, CRP 71.7, Pro-Tom within normal limits -severe intractable pain, left hip pain, with history of left hip prosthesis, went over CT scan findings with orthopedic service, went over plain films with orthopedic service, discussed with orthopedic service proceed with bone scans and pain control, would not recommend any surgery at this point or any interventions, she will need to follow-up with tertiary level center if she does want to do any surgery -Hip CT 1. Left hip arthroplasty with long stem endo femoral component. 2. Profound osteopenia. 3. Marked expansion the medullary space between the bone prosthesis interface which could be due to long-term bone demineralization and or combination component loosening. 4. 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 5. Lucency within multiple areas of thin cortical bone at the proximal diaphysis which although could reflect subtle areas of cortical fracture could also be due to profound bone absence and distinction would be difficult. On the basis of appearance, the patient is likely at high risk for displaced fracture injury. -MRI of the lumbar spine Postoperative changes as above.? Operative site small left posterior extradural nonspecific fluid collection (secondary left lateral recess and spinal canal stenosis) without specific evidence of infection.? Contrast-enhanced imaging might add additional useful information if clinically needed.? Multilevel spinal stenosis. Neural foraminal stenoses as above. ? Please see additional findings as above.? -bone scan 1.? Normal blood flow and blood pool images. No evidence of osteomyelitis. 2.? Diffuse symmetric cortical uptake about the LEFT femoral vika prosthesis compatible with chronic bony remodeling and loosening 3.? No suspicious areas of activity LEFT femur or hip to indicate acute stress fracture. 4.? Prior postoperative changes LEFT TKA 5.? Prior vertebroplasty T12. -Spoke to Dr. Tapia, this morning, he will come by and talk to patient about her surgery -Continue baclofen for muscle spasms, gabapentin 300 mg twice daily -Continue oxycodone for pain control -Consult Dr. Castañeda, painmanagment/palliative care -Awaiting callback from [facility] [place] for surgical options -Ativan as needed for anxiety -PT OT -Up out of bed into a chair -Patient's CODE STATUS she wants to be a DNR/DNI -DVT prophylaxis Lovenox -Continue her aspirin, statin, Coreg, sertraline Now has dysphagia -Underwent modified barium swallow -Denise Spence for nausea -Aspiration precautions -Clear liquid diet Attestations Medical Necessity Statement*: Patient requires soft position due to intractable hip pain, encephalopathy, dysphagia Diagnoses Intractable pain R52 Left hip pain M25.552 Left low back pain M54.50 Lumbar stenosis with neurogenic claudication M48.062 History of left hip replacement Z96.642 History of back surgery Z98.890 History of CAD (coronary artery disease) Z86.79 History of hypothyroidism Z86.39 History of hyperlipidemia Z86.39 History of depression Z86.59 History of hypertension Z86.79 History of type 2 diabetes mellitus Z86.39 Acute encephalopathy G93.40 Depression F32.A Dysphagia R13.10
[2022-08-09] MEDS: sertraline 100 mg Tablet 200 MG PO (18:00)
[2022-08-10] VITALS (8 sets, daily range): BP systolic 94–133; BP diastolic 50–64; PULSE 59–66; RESP 15–20; TEMP 36.2–37; O2SAT 91–98
[2022-08-10] MEDS: oxyCODONE 5 mg IR Tab/Cap PO (05:26)
[2022-08-10] MEDS: levothyroxine 112 mcg Tablet PO (05:27)
[2022-08-10] MEDS: CELEcoxib 200 mg Capsule PO ×2 (11:02→18:23)
[2022-08-10] MEDS: cefdinir 300 MG CAPSULE PO ×2 (11:03→18:22)
[2022-08-10] MEDS: gabapentin 300 mg Capsule PO ×2 (11:03→22:36)
[2022-08-10] MEDS: enoxaparin 40 mg/0.4 mL Syringe SUBCUT (11:03)
[2022-08-10] MEDS: pantoprazole 40 mg SDV IVP (11:10)
--- NOTE | 2022-08-10 15:24 | P.PN_ITS ---
Subjective Subjective: This patient was seen this morning, she is alert and awake, she feels a bit better, she tells me that she was able to ambulate into a chair, no fevers, no chills, I discussed my frustration has not called [facility] yesterday and have not heard back from them in over 48 hours, Vitals/I&O/Wt Last Vital Signs Temp 97.4 F L 08/10/22 12:00 Pulse 65 08/10/22 12:00 Resp 16 08/10/22 12:00 BP 101/59 08/10/22 12:00 Pulse Ox 96 08/10/22 12:00 O2 Del Method 08/10/22 12:00 O2 Flow Rate 2 08/10/22 12:00 08/10/22 08/10/22 08/10/22 06:59 14:59 22:59 Intake Total 150 / 1650 118 / 118 Output Total 400 / 400 Balance -250 / 1250 118 / 118 Physical Exam Const: COMMON NORMALS: no acute distress and patient oriented x3 Resp: COMMON NORMALS: normal respiratory effort, No retractions, No use of accessory muscles and clear to auscultation bilaterally AUSCULTATION: clear to auscultation bilaterally Cardio: COMMON NORMALS: regular rate, regular rhythm, S1 normal heart sound present and S2 normal heart sound present RATE: regular rate RHYTHM: regular rhythm HEART SOUNDS: S1 normal heart sound present and S2 normal heart sound present GI: COMMON NORMALS: Normal to inspection, nondistended, normoactive bowel sounds present and non-tender Extremity: COMMON NORMALS: no pedal edema Neuro: COMMON NORMALS: patient oriented x3 Psych: COMMON NORMALS: mental status grossly normal Urinary Catheter Management: Sarmiento: Cath Placed During This Visit: yes Reason for Continuing Indwelling Catheter: Other Urinary Catheter Date of Insertion: 08/04/22 Urinary Catheter Time of Insertion: 15:13 Data 08/06/22 14:10 08/06/22 14:10 Micro: Microbiology 08/04/22 13:00 Blood Culture - Final Blood NO GROWTH AFTER 5 DAYS 08/04/22 12:56 Blood Culture - Final Blood NO GROWTH AFTER 5 DAYS A&P Assessment and plan (1) Intractable pain: (2) Left hip pain: (3) Left low back pain: (4) Lumbar stenosis with neurogenic claudication: (5) History of left hip replacement: (6) History of back surgery: (7) History of CAD (coronary artery disease): (8) History of hypothyroidism: (9) History of hyperlipidemia: (10) History of depression: (11) History of hypertension: (12) History of type 2 diabetes mellitus: (13) Acute encephalopathy: (14) Depression: (15) Dysphagia: Plan Acute encephalopathy -Resolved -Likely secondary to pain medication, but improving -No seizure-like activity -No strokelike activity -Placed on Rocephin for possible UTI -Neuro recs, aspiration precautions, night stroke scale Severe intractable pain -Primarily in the left hip, but also in the left lower back, left lower lumbar spine -It seems as if Dilaudid is causing encephalopathy, confusion, however hydrocodone's does not seem to fully control the pain we will have to find a balance between hydrocodone, baclofen, gabapentin -She does not have suicidal ideation, no homicide nation, no plan, but she does believe that she would be better off with her heavenly father then being so much pain and may be passing away would not be a bad thing as she is in so much pain, and she is bedridden and she has lost her autotomy -Etiology unclear -She does have a history of nephrolithiasis, the CT of her lumbar spine did corn picker a kidney stone on the left -Renal ultrasound shows moderate left pelvic stasis, hydronephrosis -Spoke to urology bladder is distended, recommended placing Sarmiento catheter, no acute interventions -UA does not really have any evidence of a UTI, does show blood but could be from Sarmiento catheter placement, no significant fevers, no leukocytosis, no creatinine abnormality, CRP 70, procal WNL -She does recently have back surgery, no calf pain, no calf swelling, but she does have increased immobility, venous ultrasound negative for DVT -severe intractable pain, left hip pain, with history of left hip prosthesis, went over CT scan findings with orthopedic service, bone scan, discussed with orthopedic service proceed with bone scans and pain control, would recommend consultation with tertiary level center for consideration of surgical intervention, as she might require a complete femur replacement, pain control -Hip CT 1. Left hip arthroplasty with long stem endo femoral component. 2. Profound osteopenia. 3. Marked expansion the medullary space between the bone prosthesis interface which could be due to long-term bone demineralization and or combination component loosening. 4. 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 5. Lucency within multiple areas of thin cortical bone at the proximal diaphysis which although could reflect subtle areas of cortical fracture could also be due to profound bone absence and distinction would be difficult. On the basis of appearance, the patient is likely at high risk for displaced fracture injury. -MRI of the lumbar spine Postoperative changes as above.? Operative site small left posterior extradural nonspecific fluid collection (secondary left lateral recess and spinal canal stenosis) without specific evidence of infection.? Contrast-enhanced imaging might add additional useful information if clinically needed.? Multilevel spinal stenosis. Neural foraminal stenoses as above. ? Please see additional findings as above.? -bone scan 1.? Normal blood flow and blood pool images. No evidence of osteomyelitis. 2.? Diffuse symmetric cortical uptake about the LEFT femoral vika prosthesis compatible with chronic bony remodeling and loosening 3.? No suspicious areas of activity LEFT femur or hip to indicate acute stress fracture. 4.? Prior postoperative changes LEFT TKA 5.? Prior vertebroplasty T12. -Spoke to Dr. Tapia, this morning, he will come by and talk to patient about her surgery -Continue baclofen for muscle spasms, gabapentin 300 mg twice daily -Continue oxycodone for pain control -Consult Dr. Castañeda, painmanagment/palliative care -Awaiting callback from [facility] for surgical options -Ativan as needed for anxiety -PT OT -Up out of bed into a chair -Awaiting usp placement -Patient's CODE STATUS she wants to be a DNR/DNI -DVT prophylaxis Lovenox -Continue her aspirin, statin, Coreg, sertraline Now has dysphagia -Underwent modified barium swallow, concerns for achalasia -Will undergo a barium swallow on Friday -Denise Spence for nausea -Aspiration precautions -Clear liquid diet Attestations Medical Necessity Statement*: Patient requires position for intractable hip pain, achalasia Diagnoses Intractable pain R52 Left hip pain M25.552 Left low back pain M54.50 Lumbar stenosis with neurogenic claudication M48.062 History of left hip replacement Z96.642 History of back surgery Z98.890 History of CAD (coronary artery disease) Z86.79 History of hypothyroidism Z86.39 History of hyperlipidemia Z86.39 History of depression Z86.59 History of hypertension Z86.79 History of type 2 diabetes mellitus Z86.39 Acute encephalopathy G93.40 Depression F32.A Dysphagia R13.10
[2022-08-10] MEDS: sertraline 100 mg Tablet 200 MG PO (18:22)
[2022-08-11] VITALS (7 sets, daily range): BP systolic 122–152; BP diastolic 56–78; PULSE 60–68; RESP 14–18; TEMP 36.4–36.7; O2SAT 92–100
[2022-08-11] MEDS: levothyroxine 112 mcg Tablet PO (05:31)
--- NOTE | 2022-08-11 08:21 | XRR_ITS ---
PROCEDURE INFORMATION: Exam: XR Chest Exam date and time: 08/11/2022 9:12 AM Age: 82 years old Clinical indication: Other: Hypoxia TECHNIQUE: Imaging protocol: Radiologic exam of the chest. Views: 1 view. COMPARISON: CR XR chest 1V portable [id number] 08/06/2022 2:29 PM FINDINGS: Lungs: Normal lung volumes. No confluent interstitial or airspace opacities. Age-related interstitial prominence is seen in the lungs. Minimal unchanged biapical parenchymal scarring is seen with tiny right apical calcified granulomas. Pleural spaces: No pleural effusion. No pneumothorax. Heart/Mediastinum: Normal heart size. There is a mildly tortuous thoracic aorta. Midline trachea. Bones/joints: No acute abnormalities. Post kyphoplasty changes of the T12 vertebral body are once again seen. There is osteopenia. XR/XR chest 1V portable [id number] IMPRESSION: No confluent infiltrates in the lungs.
[2022-08-11] MEDS: cefdinir 300 MG CAPSULE PO ×2 (09:11→18:40)
[2022-08-11] MEDS: CELEcoxib 200 mg Capsule PO (09:11)
--- NOTE | 2022-08-11 10:10 | PC.SOCIAL ---
IMM update IMM updated with patient. Verbalized an understanding. Copy pg 2 provided. Initialled, dated, timed, and placed in chart.
[2022-08-11 10:21] LABS: Basophils % 0.7 %; Eosinophils # 0.4 10^3/uL (0.0-0.8); Eosinophils % 5.9 %; Hematocrit 36.4 % (37.0-47.0); Hemoglobin 11.2 g/dL (11.5-15.3); Lymphocytes # 1.7 10^3/uL (0.8-4.8); Lymphocytes % 29.1 %; Mean Corpuscular HGB Conc 30.8 g/dL (30.0-36.0); Mean Corpuscular Hemoglobin 30.6 pg (28.0-34.0); Mean Corpuscular Volume 99.5 fl (81-99); Mean Platelet Volume 11.3 fL (7.4-10.4); Monocytes # 0.5 10^3/uL (0.2-0.9); Monocytes % 8.9 %; Neutrophils # 3.24 10^3/uL (1.8-7.7); Neutrophils % 54.2 %; Nucleated Red Blood Cells % 0 %; Platelet Count 234 10^3/cmm (130-400); Red Blood Count 3.66 10^6/uL (4.1-5.3)
[2022-08-11 10:52] LABS: NT Pro B Type Natriuretic Pept 342 pg/mL (0-450); Procalcitonin 0.13 ng/mL (0-0.5)
[2022-08-11 11:04] LABS: C Reactive Protein 24.7 mg/L (0.0-4.9)
[2022-08-11] MEDS: lidocaine 2% viscous 15 ML, aluminum-mag hydrox-simethicon 30 ML, sucralfate oral liq 1 GM PO (11:07)
[2022-08-11] MEDS: polyethylene glycol 3350 Pkt 17 gm PO ×2 (11:08→11:15)
[2022-08-11] MEDS: gabapentin 300 mg Capsule PO ×2 (11:15→22:14)
[2022-08-11] MEDS: enoxaparin 40 mg/0.4 mL Syringe SUBCUT (11:15)
--- NOTE | 2022-08-11 13:56 | PM.PN ---
Subjective Subjective: - Patient was seen this morning she is feeling a lot better, her nausea has improved to some degree she is having some bad acid reflux she wants something for that, she has not had a bowel movement yet, wants Sarmiento catheter removed, she feels a lot better she thinks it may be if she gets a bit better she and she does well with physical therapy maybe she could go home instead of going to senior living -I had a discussion with orthopedic physician at [facility], Dr. Davidson, orthopedic surgeon, he actually reviewed patient's films, he tells me that patient would likely not benefit functionally more pain cole from any further surgeries to her left hip, they could certainly consider a full femoral replacement, but this certainly would be an extensive surgery, and he feels that she would not get any significant functional benefit from it. Vitals/I&O/Wt Last Vital Signs Temp 97.8 F 08/11/22 12:00 Pulse 68 08/11/22 12:00 Resp 17 08/11/22 12:00 BP 137/71 08/11/22 12:00 Pulse Ox 92 08/11/22 12:00 O2 Del Method 08/11/22 12:00 O2 Flow Rate 2 08/11/22 03:42 08/10/22 08/11/22 08/11/22 22:59 06:59 14:59 Intake Total 240 / 358 600 / 600 Output Total 1200 / 1200 475 / 1675 Balance -1200 / -1082 -235 / -1317 600 / 600 Physical Exam Const: COMMON NORMALS: no acute distress and patient oriented x3 Resp: COMMON NORMALS: normal respiratory effort, No retractions, No use of accessory muscles and clear to auscultation bilaterally AUSCULTATION: clear to auscultation bilaterally Cardio: COMMON NORMALS: regular rate, regular rhythm, S1 normal heart sound present and S2 normal heart sound present RATE: regular rate RHYTHM: regular rhythm HEART SOUNDS: S1 normal heart sound present and S2 normal heart sound present GI: COMMON NORMALS: Normal to inspection, nondistended, normoactive bowel sounds present and non-tender Extremity: COMMON NORMALS: no pedal edema Neuro: COMMON NORMALS: patient oriented x3 Psych: COMMON NORMALS: mental status grossly normal Urinary Catheter Management: Sarmiento: Cath Placed During This Visit: yes Reason for Continuing Indwelling Catheter: Other Urinary Catheter Date of Insertion: 08/04/22 Urinary Catheter Time of Insertion: 15:13 Data 08/11/22 09:32 08/06/22 14:10 A&P Assessment and plan (1) Intractable pain: (2) Left hip pain: (3) Left low back pain: (4) Lumbar stenosis with neurogenic claudication: (5) History of left hip replacement: (6) History of back surgery: (7) History of CAD (coronary artery disease): (8) History of hypothyroidism: (9) History of hyperlipidemia: (10) History of depression: (11) History of hypertension: (12) History of type 2 diabetes mellitus: (13) Acute encephalopathy: (14) Depression: (15) Dysphagia: Plan Acute encephalopathy -Resolved -Likely secondary to pain medication, but improving -No seizure-like activity -No strokelike activity -Placed on Rocephin for possible UTI -Neuro recs, aspiration precautions, night stroke scale Severe intractable pain -Primarily in the left hip, but also in the left lower back, left lower lumbar spine -It seems as if Dilaudid is causing encephalopathy, confusion, however hydrocodone's does not seem to fully control the pain we will have to find a balance between hydrocodone, baclofen, gabapentin -She does not have suicidal ideation, no homicide nation, no plan, but she does believe that she would be better off with her heavenly father then being so much pain and may be passing away would not be a bad thing as she is in so much pain, and she is bedridden and she has lost her autotomy -Etiology unclear -She does have a history of nephrolithiasis, the CT of her lumbar spine did package pick up a kidney stone on the left -Renal ultrasound shows moderate left pelvic stasis, hydronephrosis -Spoke to urology bladder is distended, recommended placing Sarmiento catheter, no acute interventions -UA does not really have any evidence of a UTI, does show blood but could be from Sarmiento catheter placement, no significant fevers, no leukocytosis, no creatinine abnormality, CRP 70, procal WNL -She does recently have back surgery, no calf pain, no calf swelling, but she does have increased immobility, venous ultrasound negative for DVT -severe intractable pain, left hip pain, with history of left hip prosthesis, went over CT scan findings with orthopedic service, bone scan, discussed with orthopedic service proceed with bone scans and pain control, would recommend consultation with tertiary level center for consideration of surgical intervention, as she might require a complete femur replacement, pain control -Hip CT 1. Left hip arthroplasty with long stem endo femoral component. 2. Profound osteopenia. 3. Marked expansion the medullary space between the bone prosthesis interface which could be due to long-term bone demineralization and or combination component loosening. 4. 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 5. Lucency within multiple areas of thin cortical bone at the proximal diaphysis which although could reflect subtle areas of cortical fracture could also be due to profound bone absence and distinction would be difficult. On the basis of appearance, the patient is likely at high risk for displaced fracture injury. -MRI of the lumbar spine Postoperative changes as above.? Operative site small left posterior extradural nonspecific fluid collection (secondary left lateral recess and spinal canal stenosis) without specific evidence of infection.? Contrast-enhanced imaging might add additional useful information if clinically needed.? Multilevel spinal stenosis. Neural foraminal stenoses as above. ? Please see additional findings as above.? -bone scan 1.? Normal blood flow and blood pool images. No evidence of osteomyelitis. 2.? Diffuse symmetric cortical uptake about the LEFT femoral vika prosthesis compatible with chronic bony remodeling and loosening 3.? No suspicious areas of activity LEFT femur or hip to indicate acute stress fracture. 4.? Prior postoperative changes LEFT TKA 5.? Prior vertebroplasty T12. -Spoke to Dr. Tapia, this morning, he will come by and talk to patient about her surgery -Continue baclofen for muscle spasms, gabapentin 300 mg twice daily -Continue oxycodone for pain control -Continue Celebrex for pain control -Consult Dr. Castañeda, painmanagment/palliative care -Spoke to [facility], recommended surgical intervention such as a full femoral placement would not functionally benefit patient -Ativan as needed for anxiety -PT OT -Up out of bed into a chair -Awaiting senior living placement versus going home based on clinical progress -Patient's CODE STATUS she wants to be a DNR/DNI -DVT prophylaxis Lovenox -Continue her aspirin, statin, Coreg, sertraline Now has dysphagia -Underwent modified barium swallow, concerns for achalasia -Will undergo a barium swallow on Friday -Denise Spence for nausea -Aspiration precautions -Clear liquid diet Attestations Medical Necessity Statement*: Patient requires position for intractable severe left hip pain Diagnoses Intractable pain R52 Left hip pain M25.552 Left low back pain M54.50 Lumbar stenosis with neurogenic claudication M48.062 History of left hip replacement Z96.642 History of back surgery Z98.890 History of CAD (coronary artery disease) Z86.79 History of hypothyroidism Z86.39 History of hyperlipidemia Z86.39 History of depression Z86.59 History of hypertension Z86.79 History of type 2 diabetes mellitus Z86.39 Acute encephalopathy G93.40 Depression F32.A Dysphagia R13.10
[2022-08-11] MEDS: sertraline 100 mg Tablet 200 MG PO (18:40)
[2022-08-11] MEDS: docusate sodium 100 mg Capsule PO (18:41)
[2022-08-11] MEDS: oxyCODONE 5 mg IR Tab/Cap PO (22:11)
[2022-08-12] VITALS (9 sets, daily range): BP systolic 154–164; BP diastolic 71–79; PULSE 66–74; RESP 16–20; TEMP 36.3–36.8; O2SAT 91–96
--- NOTE | 2022-08-12 | FL_ITS ---
WS: [id number] Barium swallow and esophagram, 08/12/2022 Clinical Data: esophageal dysmotility Comparison: Esophagram, 05/22/2012 Fluoroscopy time: 0min [id number] # of spot films: 5 Findings: The patient swallowed the thin barium, and it flowed through the hypopharynx without hesitation. No s tricture, mass, polyp or erosion was seen. The barium entered the esophagus and there was absent motility throughout. The entire esophagus was d ilated with numerous diverticula. There is a marked narrowing of the distal esophagus at the gastroes ophageal junction. There is a hiatal hernia. Barium did pass into the stomach. There was kyphoplasty material at T12. FL/FL barium swallow [id number] Impression: 1. Very poor contractility of the entire esophagus with dilatation and numerous diverticula which has worsened since 2011. 2. Marked narrowing of the distal esophagus probably at the gastroesophageal ju nction. 3. Moderate hiatal hernia.
[2022-08-12] MEDS: LORazepam 0.5 mg Tablet PO (02:57)
[2022-08-12] MEDS: levothyroxine 112 mcg Tablet PO (05:04)
[2022-08-12] MEDS: cefdinir 300 MG CAPSULE PO (09:51)
[2022-08-12] MEDS: docusate sodium 100 mg Capsule PO ×2 (09:51→18:07)
[2022-08-12] MEDS: enoxaparin 40 mg/0.4 mL Syringe SUBCUT (11:57)
[2022-08-12] MEDS: gabapentin 300 mg Capsule PO ×2 (11:57→23:23)
[2022-08-12] MEDS: oxyCODONE 5 mg IR Tab/Cap PO (12:05)
[2022-08-12] MEDS: sertraline 100 mg Tablet 200 MG PO (18:07)
--- NOTE | 2022-08-12 21:17 | PM.PN ---
Subjective Subjective: She feels she knows she needs rehabilitation and is not ready to return home. She is still hurting in her hips. Pain is controlled when she uses pain medication. She is concerned about her dog having to spend time with different people and at different places making it confused. Vitals/I&O/Wt Last Vital Signs Temp 98.2 F 08/12/22 20:00 Pulse 70 08/12/22 20:00 Resp 17 08/12/22 20:00 BP 163/74 08/12/22 20:00 Pulse Ox 93 08/12/22 20:00 O2 Del Method 08/12/22 20:00 O2 Flow Rate 2 08/12/22 08:00 08/12/22 08/12/22 08/12/22 06:59 14:59 22:59 Intake Total 360 / 360 120 / 480 Balance 360 / 360 120 / 480 Physical Exam Const: COMMON NORMALS: patient oriented x3 and alert GENERAL APPEARANCE: cooperative ORIENTATION/CONSCIOUSNESS: Yes awake HENMT: COMMON NORMALS: oropharynx normal Neck/C-Spine: COMMON NORMALS: no JVD Resp: COMMON NORMALS: normal respiratory effort and clear to auscultation bilaterally AUSCULTATION: clear to auscultation bilaterally Cardio: COMMON NORMALS: no JVD, regular rhythm, S1 normal heart sound present, S2 normal heart sound present and No murmurs present (Cardio) RHYTHM: regular rhythm HEART SOUNDS: S1 normal heart sound present and S2 normal heart sound present GI: COMMON NORMALS: Normal to inspection, nondistended, normoactive bowel sounds present, Soft to palpation and non-tender PALPATION: Yes Soft to palpation Extremity: COMMON NORMALS: no pedal edema Neuro: COMMON NORMALS: patient oriented x3 and moves all extremities SENSORIUM/ORIENTATION: Yes alert Urinary Catheter Management: Sarmiento: Cath Placed During This Visit: yes Reason for Continuing Indwelling Catheter: Other Urinary Catheter Date of Insertion: 08/04/22 Urinary Catheter Time of Insertion: 15:13 Data 08/11/22 09:32 08/06/22 14:10 A&P Assessment and plan (1) Intractable pain: (2) Left hip pain: (3) Left low back pain: (4) Lumbar stenosis with neurogenic claudication: (5) History of left hip replacement: (6) History of back surgery: (7) History of CAD (coronary artery disease): (8) History of hypothyroidism: (9) History of hyperlipidemia: (10) History of depression: (11) History of hypertension: (12) History of type 2 diabetes mellitus: (13) Acute encephalopathy: (14) Depression: (15) Dysphagia: Plan Acute encephalopathy: Blood culture reviewed, no growth after 5 days. Urine culture not available. Continues on cefdinir for possible UTI. -Resolved -Likely secondary to pain medication, but improving -No seizure-like activity -No strokelike activity Severe intractable pain: Continue optimization of pain control. Add lidocaine patch. Continue attempted mobilization with therapy. Continue arrangements for SNF. -Primarily in the left hip, but also in the left lower back, left lower lumbar spine -Patient's CODE STATUS she wants to be a DNR/DNI -DVT prophylaxis Lovenox -Continue her aspirin, statin, Coreg, sertraline Now has dysphagia: Barium swallow results reviewed. Very poor contractility of the entire esophagus with dilation and numerous diverticuli which has worsened since 2012. Marked narrowing of distal esophagus probably at GE junction. Moderate hiatal hernia. -Denise Spence for nausea -Aspiration precautions -Trial of full liquid diet Follow-up with surgery. Attestations Medical Necessity Statement*: Continue optimization of pain control, arrangements for rehabilitation. Diagnoses Intractable pain R52 Left hip pain M25.552 Left low back pain M54.50 Lumbar stenosis with neurogenic claudication M48.062 History of left hip replacement Z96.642 History of back surgery Z98.890 History of CAD (coronary artery disease) Z86.79 History of hypothyroidism Z86.39 History of hyperlipidemia Z86.39 History of depression Z86.59 History of hypertension Z86.79 History of type 2 diabetes mellitus Z86.39 Acute encephalopathy G93.40 Depression F32.A Dysphagia R13.10
[2022-08-13] VITALS: BP 137/67; PULSE 68; RESP 16; TEMP 36.8; O2SAT 90
[2022-08-13 03:37] VITALS: BP 137/67; PULSE 68; RESP 16; TEMP 36.8
[2022-08-13 03:56] VITALS: BP 151/69; PULSE 72; RESP 16; TEMP 36.8; O2SAT 91
[2022-08-13] MEDS: levothyroxine 112 mcg Tablet PO (06:05)
--- NOTE | 2022-08-13 07:10 | PC.NURSE ---
Bedside reported completed with Daniella RN at this time. Patient is resting in bed.
[2022-08-13 08:00] VITALS: BP 160/86; PULSE 69; RESP 17; TEMP 36.7; O2SAT 95
[2022-08-13] MEDS: docusate sodium 100 mg Capsule PO (08:40)
[2022-08-13] MEDS: CELEcoxib 200 mg Capsule PO (08:40)
[2022-08-13] MEDS: baclofen 10 mg Tablet PO (08:40)
[2022-08-13] MEDS: polyethylene glycol 3350 Pkt 17 gm PO (08:40)
[2022-08-13] MEDS: cefdinir 300 MG CAPSULE PO (10:42)
[2022-08-13] MEDS: gabapentin 300 mg Capsule PO (11:48)
[2022-08-13] MEDS: enoxaparin 40 mg/0.4 mL Syringe SUBCUT (11:48)
[2022-08-13 12:00] VITALS: BP 95/56; PULSE 66; RESP 17; TEMP 36.5; O2SAT 95
--- NOTE | 2022-08-13 13:08 | PC.SOCIAL ---
IMM Updated Updated pt on IMM. No questions voiced. Provided pt a copy. Initialed, dated, & timed copy in chart.
--- NOTE | 2022-08-13 13:13 | PC.ADMIT ---
[address] Admission Note: The patient,Taylor Beaver,82 y/o, was given written information regarding hospital policies, unit procedures and contact persons. Patient's smoking status: never smoked. Vital Signs - 8 hr 08/13/22 08:00 08/13/22 08:00 Temperature 98.0 F Pulse Rate 69 Respiratory Rate 17 Blood Pressure 160/86 Pulse Oximetry 95 Oxygen Delivery Method Room Air Oxygen Flow Rate 2 Allergies No Known Allergies Allergy (Verified 08/04/22 07:45) Clinical Data Height 5 ft 5 in Weight 151 lb 1 oz Advance Directives No Ambulation Ability Standby Assistance Minimum Assistance Oxygen Delivery Method Room Air Oxygen Flow Rate 2 Precautions [place] EDM Last Name: Sd Status: Left Department First Name: Taylor Priority: 3 Urgent Middle: D Condition: Stable Birthdate: 1940 Arrival Date/Time: 08/04/22 05:15 Age at Arrival: 82 Arrival Mode: Ambulance Sex: F Triaged At: 08/04/22 05:17 Language: Nauruan Time Seen by Provider: 08/04/22 05:16 Stated Complaint: HIP PAIN Chief Complaint: Extremity Injury, Lower ED Location: Emergency Department Area: Station: Group: ED Provider: Candace Lopez ED Midlevel Provider: ED Nurse: Enid Colon Primary Care Provider: Deepa Kaufman Other Provider: Sandro Clark Status/Phase DtTm/Value User/Action Left Department 08/13/22 13:12:53 Vitor Gama Referrals (Provider) Deepa Kaufman Edit Admitted Patient 08/04/22 14:43:12 Teresa Sterling Attending Provider Papa Beal MD Admitting Provider Paap Beal MD New 08/04/22 07:12:57 Enid Colon Ed Nurse Enid Colon With Doctor 08/04/22 05:23 Gabe Desir Chief Complaint Extremity Injury, Lower New 08/04/22 05:20:06 Candace Lopez Referrals (Provider) Deepa Kaufman Added 08/04/22 05:19:24 Candace Lopez Ed Provider Candace Lopez MD Edit 08/04/22 05:17:19 Julieta Odom Ed Provider DENISE BETTS Edit 08/04/22 05:16:38 Candace Lopez Ed Provider Candace Lopez MD New In Room 08/04/22 05:15:31 Yeny Hatch Stated Complaint HIP PAIN New Family Hx (Last Reviewed 08/08/22 @ 09:02 by Sandro Clark DO) Mother CAD (coronary artery disease) Medical Hx (Last Reviewed 08/08/22 @ 09:02 by Sandro Clark DO) History of CAD (coronary artery disease) (Medical) Z86.79 History of depression (Medical) Z86.59 History of hyperlipidemia (Medical) Z86.39 History of hypertension (Medical) Z86.79 History of hypothyroidism (Medical) Z86.39 History of nephrolithiasis (Medical) Z87.442 History of type 2 diabetes mellitus (Medical) Z86.39 Lumbar stenosis with neurogenic claudication (Medical) M48.062 Acetaminophen (Acetaminophen 325 Mg Tablet) 650 mg PO Q6H PRN PRN Reason: Mild/Mod Pain Or Temp >/= 101 Baclofen (Baclofen 10 Mg Tablet) 10 mg PO QID PRN PRN Reason: hip pain, back pain Last Admin: 08/13/22 08:40 Dose: 10 mg Documented By: Admin: 08/08/22 20:15 Dose: 10 mg Documented By: Admin: 08/07/22 22:10 Dose: 10 mg Documented By: Admin: 08/06/22 12:07 Dose: 10 mg Documented By: Admin: 08/05/22 18:58 Dose: 10 mg Documented By: Admin: 08/05/22 10:32 Dose: 10 mg Documented By: Cefdinir (Cefdinir 300 Mg Capsule) 300 mg PO BID [facility]; Protocol Last Admin: 08/13/22 10:42 Dose: 300 mg Documented By: JOSE CRUZ Admin: 08/12/22 18:07 Dose: Not Given Documented By: CASTRO Non-Admin Reason: not available Admin: 08/12/22 09:51 Dose: 300 mg Documented By: [email or web address] Admin: 08/11/22 18:40 Dose: 300 mg Documented By: Admin: 08/11/22 09:11 Dose: 300 mg Documented By: [email or web address] Admin: 08/10/22 18:22 Dose: 300 mg Documented By: [email or web address] Admin: 08/10/22 11:03 Dose: 300 mg Documented By: Admin: 08/09/22 18:00 Dose: 300 mg Documented By: Admin: 08/09/22 10:50 Dose: 300 mg Documented By: Admin: 08/08/22 18:22 Dose: 300 mg Documented By: Admin: 08/08/22 10:09 Dose: 300 mg Documented By: Admin: 08/07/22 18:38 Dose: 300 mg Documented By: MIRTA Celecoxib (Celecoxib 200 Mg Capsule) 200 mg PO BID PRN PRN Reason: pain Last Admin: 08/13/22 08:40 Dose: 200 mg Documented By: JOSE CRUZ Docusate Sodium (Docusate Sodium 100 Mg Capsule) 100 mg PO BID [facility] Last Admin: 08/13/22 08:40 Dose: 100 mg Documented By: JOSE CRUZ Admin: 08/12/22 18:07 Dose: 100 mg Documented By: Admin: 08/12/22 09:51 Dose: 100 mg Documented By: Admin: 08/11/22 18:41 Dose: 100 mg Documented By: CASTRO Enoxaparin Sodium (Enoxaparin 40 Mg/0.4 Ml Syringe) 40 mg SUBCUT Q24H [facility] Last Admin: 08/13/22 11:48 Dose: 40 mg Documented By: JOSE CRUZ AMOS SQ Injection Site Document 08/13/22 11:48 JOSE CRUZ (Rec: 08/13/22 11:48 JOSE CRUZ [id number]) Injection Site SQ Injection Site Abdomen - RUQ Admin: 08/12/22 11:57 Dose: 40 mg Documented By: CASTRO AMOS SQ Injection Site Document 08/12/22 11:57 [email or web address] (Rec: 08/12/22 11:57 [id number]) Injection Site SQ Injection Site Abdomen - LLQ Admin: 08/11/22 11:15 Dose: 40 mg Documented By: CASTRO AMOS SQ Injection Site Document 08/11/22 11:15 [email or web address] (Rec: 08/11/22 11:15 [email or web address] [id number]) Injection Site SQ Injection Site Abdomen - LLQ Admin: 08/10/22 11:03 Dose: 40 mg Documented By: CASTRO AMOS SQ Injection Site Document 08/10/22 11:03 STEPHANE2 (Rec: 08/10/22 11:03 [email or web address] MS110) Injection Site SQ Injection Site Abdomen - LLQ Admin: 08/09/22 10:50 Dose: 40 mg Documented By: SK MAR SQ Injection Site Document 08/09/22 10:50 SK (Rec: 08/09/22 10:50 SK [id number]) Injection Site SQ Injection Site Abdomen - LLQ Admin: 08/08/22 12:03 Dose: 40 mg Documented By: LB MAR SQ Injection Site Document 08/08/22 12:03 LB (Rec: 08/08/22 12:03 LB [id number]) Injection Site SQ Injection Site Abdomen - LLQ Admin: 08/07/22 11:54 Dose: 40 mg Documented By: LB MAR SQ Injection Site Document 08/07/22 11:54 LB (Rec: 08/07/22 11:56 LB [id number]) Injection Site SQ Injection Site Abdomen - RLQ Admin: 08/06/22 11:52 Dose: 40 mg Documented By: MAR SQ Injection Site Document 08/06/22 11:52 (Rec: 08/06/22 11:52 [id number]) Injection Site SQ Injection Site Abdomen - LLQ Admin: 08/05/22 10:31 Dose: 40 mg Documented By: MAR SQ Injection Site Document 08/05/22 10:31 (Rec: 08/05/22 10:31 [id number]) Injection Site SQ Injection Site Abdomen - LLQ Admin: 08/04/22 12:47 Dose: 40 mg Documented By: (2) MAR SQ Injection Site Document 08/04/22 12:47 (2) (Rec: 08/04/22 12:47 (2) [id number]) Injection Site SQ Injection Site Abdomen - LLQ Gabapentin (Gabapentin 300 Mg Capsule) 300 mg PO Q12H IDA Last Admin: 08/13/22 11:48 Dose: 300 mg Documented By: Admin: 08/12/22 23:23 Dose: 300 mg Documented By: Admin: 08/12/22 11:57 Dose: 300 mg Documented By: [email or web address] Admin: 08/11/22 22:14 Dose: 300 mg Documented By: Admin: 08/11/22 11:15 Dose: 300 mg Documented By: [email or web address] Admin: 08/10/22 22:36 Dose: 300 mg Documented By: Admin: 08/10/22 11:03 Dose: 300 mg Documented By: [email or web address] Admin: 08/09/22 23:51 Dose: 300 mg Documented By: Admin: 08/09/22 10:49 Dose: 300 mg Documented By: Admin: 08/09/22 00:18 Dose: 300 mg Documented By: Admin: 08/08/22 12:03 Dose: Not Given Documented By: LB Non-Admin Reason: Patient Refused Vaccine Admin: 08/07/22 22:09 Dose: 300 mg Documented By: Admin: 08/07/22 11:56 Dose: Not Given Documented By: LB Non-Admin Reason: Patient Refused Vaccine Admin: 08/06/22 23:05 Dose: 300 mg Documented By: SC Admin: 08/06/22 11:52 Dose: 300 mg Documented By: Admin: 08/05/22 22:35 Dose: 300 mg Documented By: SC Admin: 08/05/22 10:32 Dose: 300 mg Documented By: Admin: 08/04/22 23:37 Dose: 300 mg Documented By: SC Admin: 08/04/22 12:48 Dose: 300 mg Documented By: (2) Levothyroxine Sodium (Levothyroxine 112 Mcg Tablet) 112 mcg PO QAM [facility] Last Admin: 08/13/22 06:05 Dose: 112 mcg Documented By: Admin: 08/12/22 05:04 Dose: 112 mcg Documented By: Admin: 08/11/22 05:31 Dose: 112 mcg Documented By: Admin: 08/10/22 05:27 Dose: 112 mcg Documented By: Admin: 08/09/22 05:04 Dose: 112 mcg Documented By: Admin: 08/08/22 06:26 Dose: 112 mcg Documented By: KRISHNA Lidocaine (Lidocaine 5% Patch) 1 patch TOPICAL [id number] [facility] Last Admin: 08/13/22 08:56 Dose: Not Given Documented By: JOSE CRUZ Non-Admin Reason: Other Delay MAR Transdermal Patch Site Document 08/13/22 08:56 JOSE CRUZ (Rec: 08/13/22 08:56 JOSE CRUZ [id number]) Transdermal Patch Site Transdermal Patch Site Left Hip Lorazepam (Lorazepam 0.5 Mg Tablet) 0.5 mg PO Q6H PRN PRN Reason: ANXIETY Last Admin: 08/12/22 02:57 Dose: 0.5 mg Documented By: Admin: 08/08/22 20:15 Dose: 0.5 mg Documented By: Admin: 08/08/22 15:04 Dose: 0.5 mg Documented By: MIRTA Metoclopramide HCl (Metoclopramide Oral Liquid 5 Mg/5 Ml (Ml)) 5 mg PO Q6H PRN PRN Reason: NAUSEA AND VOMITING Naloxone HCl (Naloxone 0.4 Mg/Ml Sdv) 0.1 mg IVP Q2M PRN PRN Reason: RESPIRATORY RATE < 8/MIN Ondansetron HCl (Ondansetron 4 Mg Tablet) 4 mg PO Q6H PRN PRN Reason: NAUSEA AND VOMITING Last Admin: 08/09/22 10:49 Dose: 4 mg Documented By: RAISA Oxycodone HCl (Oxycodone 5 Mg Ir Tab/Cap) 5 mg PO Q4H PRN PRN Reason: MODERATE PAIN Last Admin: 08/12/22 12:05 Dose: 5 mg Documented By: CASTRO AMOS Pain with Respiratory Document 08/12/22 12:05 [email or web address] (Rec: 08/12/22 12:05 [email or web address] [id number]) Pain Scale Pain Intensity 5 Scale Used Numeric (1 - 10) Respiratory Respiratory Rate (12-18) 18 Admin: 08/11/22 22:11 Dose: 5 mg Documented By: MALENA AMOS Pain with Respiratory Document 08/11/22 22:11 FM (Rec: 08/11/22 22:11 FM [id number]) Pain Scale Pain Intensity 6 Scale Used Numeric (1 - 10) Location Pain Location hip Management Techniques Pain Alleviating Factors Medication Respiratory Respiratory Rate (12-18) 16 Respiratory Effort Non-Labored Admin: 08/10/22 05:26 Dose: 5 mg Documented By: KRISHNA MAR Pain with Respiratory Document 08/10/22 05:26 AC (Rec: 08/10/22 05:26 AC [id number]) Pain Scale Pain Intensity 6 Scale Used Numeric (1 - 10) Management Techniques Pain Alleviating Factors Medication Respiratory Respiratory Rate (12-18) 18 Respiratory Depth Normal Respiratory Effort Spontaneous,Non-Labored Respiratory Pattern Normal Pulse Oximetry (90-100) 93 Admin: 08/09/22 10:49 Dose: 5 mg Documented By: RAISA AMOS Pain with Respiratory Document 08/09/22 10:49 RAISA (Rec: 08/09/22 10:49 SK [id number]) Pain Scale Pain Intensity 5 Scale Used Numeric (1 - 10) Respiratory Respiratory Rate (12-18) 16 Admin: 08/08/22 20:15 Dose: 5 mg Documented By: KRISHNA MAR Pain with Respiratory Document 08/08/22 20:15 AC (Rec: 08/08/22 20:16 AC [id number]) Pain Scale Pain Intensity 8 Scale Used Numeric (1 - 10) Management Techniques Pain Alleviating Factors Medication Respiratory Respiratory Rate (12-18) 18 Respiratory Depth Normal Respiratory Effort Spontaneous,Non-Labored Respiratory Pattern Normal Pulse Oximetry (90-100) 92 Admin: 08/08/22 15:03 Dose: 5 mg Documented By: LB MAR Pain with Respiratory Document 08/08/22 15:03 LB (Rec: 08/08/22 15:03 LB [id number]) Pain Scale Pain Intensity 6 Scale Used Numeric (1 - 10) Management Techniques Pain Alleviating Factors Nurse Notified Respiratory Respiratory Rate (12-18) 18 Respiratory Depth Normal Respiratory Effort Spontaneous,Non-Labored Respiratory Pattern Normal Pulse Oximetry (90-100) 92 Admin: 08/08/22 04:11 Dose: 5 mg Documented By: KRISHNA MAR Pain with Respiratory Document 08/08/22 04:11 AC (Rec: 08/08/22 04:12 AC MS104) Pain Scale Pain Intensity 6 Scale Used Numeric (1 - 10) Management Techniques Pain Alleviating Factors Medication Respiratory Respiratory Rate (12-18) 20 H Respiratory Depth Normal Respiratory Effort Spontaneous,Non-Labored Respiratory Pattern Normal Pulse Oximetry (90-100) 93 Admin: 08/07/22 22:09 Dose: 5 mg Documented By: KRISHNA MAR Pain with Respiratory Document 08/07/22 22:09 AC (Rec: 08/07/22 22:10 AC MS104) Pain Scale Pain Intensity 9 Scale Used Numeric (1 - 10) Management Techniques Pain Alleviating Factors Medication,Inactivity Respiratory Respiratory Rate (12-18) 18 Respiratory Depth Normal Respiratory Effort Spontaneous,Non-Labored Respiratory Pattern Normal Pulse Oximetry (90-100) 93 Admin: 08/07/22 10:20 Dose: 5 mg Documented By: LB MAR Pain with Respiratory Document 08/07/22 10:20 LB (Rec: 08/07/22 10:21 LB [id number]) Pain Scale Pain Intensity 5 Scale Used Numeric (1 - 10) Management Techniques Pain Alleviating Factors Nurse Notified Respiratory Respiratory Rate (12-18) 18 Respiratory Depth Normal Respiratory Effort Spontaneous,Non-Labored Respiratory Pattern Normal Pulse Oximetry (90-100) 97 Pantoprazole Sodium (Pantoprazole 40 Mg Sdv) 40 mg IVP Q24H [facility] Last Admin: 08/13/22 11:42 Dose: Not Given Documented By: JOSE CRUZ Non-Admin Reason: Patient Refused Vaccine Admin: 08/12/22 12:08 Dose: Not Given Documented By: CASTRO Non-Admin Reason: no IV Admin: 08/11/22 11:15 Dose: Not Given Documented By: CASTRO Non-Admin Reason: unavailable MAR IV Push Document 08/11/22 11:15 [email or web address] (Rec: 08/11/22 11:15 [id number]) Push Drug Pushed Over 2 Admin: 08/10/22 11:10 Dose: 40 mg Documented By: Admin: 08/09/22 10:51 Dose: Not Given Documented By: RAISA Non-Admin Reason: Patient Refused Vaccine Admin: 08/08/22 12:03 Dose: Not Given Documented By: MIRTA Non-Admin Reason: PT HAS NO IV, REFUSED Admin: 08/07/22 11:56 Dose: Not Given Documented By: MIRTA Non-Admin Reason: Patient Refused Vaccine Admin: 08/06/22 11:52 Dose: 40 mg Documented By: [facility] IV Push Document 08/06/22 11:52 (Rec: 08/06/22 11:52 [id number]) Push Drug Pushed Over 2 Admin: 08/05/22 10:32 Dose: 40 mg Documented By: [facility] IV Push Document 08/05/22 10:32 (Rec: 08/05/22 10:32 [id number]) Push Drug Pushed Over 4 Admin: 08/04/22 12:50 Dose: 40 mg Documented By: (2) Polyethylene Glycol (Polyethylene Glycol 3350 Pkt 17 Gm) 17 gm PO DAILY [facility] Last Admin: 08/13/22 08:40 Dose: 17 gm Documented By: JOSE CRUZ Admin: 08/11/22 11:15 Dose: 17 gm Documented By: Admin: 08/11/22 11:08 Dose: 17 gm Documented By: [email or web address] Sertraline HCl (Sertraline 100 Mg Tablet) 200 mg PO QPM [facility] Last Admin: 08/12/22 18:07 Dose: 200 mg Documented By: Admin: 08/11/22 18:40 Dose: 200 mg Documented By: Admin: 08/10/22 18:22 Dose: 200 mg Documented By: Admin: 08/09/22 18:00 Dose: 200 mg Documented By: Admin: 08/08/22 18:22 Dose: 200 mg Documented By: Admin: 08/07/22 18:37 Dose: 200 mg Documented By: MIRTA Discontinued Medications Hydrocodone Bitart/Acetaminophen (Hydrocodone-Acetaminophen 5-325 Mg Tablet) 1 tab PO Q4H PRN PRN Reason: MODERATE PAIN Last Admin: 08/07/22 02:35 Dose: 1 tab Documented By: TALON AMOS Pain Assessment Document 08/07/22 02:35 SC (Rec: 08/07/22 02:35 SC [id number]) Pain Scale Pain Intensity 8 Scale Used Numeric (1 - 10) Location Pain Location l hip Management Techniques Pain Alleviating Factors Medication,Changing Position, Distraction Admin: 08/06/22 11:52 Dose: 1 tab Documented By: [facility] Pain Assessment Document 08/06/22 11:52 (Rec: 08/06/22 11:52 [id number]) Pain Assessment Reason Not Required Scheduled Medication Pain Scale Pain Intensity 2 Scale Used Numeric (1 - 10) Location Pain Location l hip Management Techniques Pain Alleviating Factors Medication Celecoxib (Celecoxib 200 Mg Capsule) 200 mg PO BID [facility] Last Admin: 08/11/22 09:11 Dose: 200 mg Documented By: Admin: 08/10/22 18:23 Dose: 200 mg Documented By: Admin: 08/10/22 11:02 Dose: 200 mg Documented By: Admin: 08/09/22 18:00 Dose: 200 mg Documented By: Admin: 08/09/22 10:50 Dose: 200 mg Documented By: Admin: 08/08/22 18:22 Dose: 200 mg Documented By: Admin: 08/08/22 10:09 Dose: 200 mg Documented By: Admin: 08/07/22 18:38 Dose: 200 mg Documented By: MIRTA Lidocaine HCl 15 ml/ Al Hydrox /Mg Hydrox/Simethicone 30 ml/Sucralfate 1 gm 0 ml PO ONCE ONE Stop: 08/11/22 10:10 Last Admin: 08/11/22 11:07 Dose: 1 suspension Documented By: [email or web address] Comments: lidocaine given as ordered , unable to scan Fentanyl (Fentanyl 50 Mcg/Ml Inj 2ml) 50 mcg IVP ONCE ONE Stop: 08/04/22 06:56 Last Admin: 08/04/22 07:04 Dose: 50 mcg Documented By: (2) Fentanyl (Fentanyl 50 Mcg/Ml Inj 2ml) 50 mcg IVP ONCE ONE Stop: 08/04/22 06:57 Last Admin: 08/04/22 07:39 Dose: 50 mcg Documented By: (2) Comments: patient in CT MAR Pain with Respiratory Document 08/04/22 07:39 (2) (Rec: 08/04/22 07:39 (2) [id number]) Respiratory Respiratory Rate (12-18) 18 Fentanyl (Fentanyl 50 Mcg/Ml Inj 2ml) 50 mcg IVP ONCE ONE Stop: 08/04/22 07:30 Last Admin: 08/04/22 12:37 Dose: Not Given Documented By: (2) Non-Admin Reason: Not Indicated Furosemide (Furosemide 10 Mg/Ml Sdv 2ml) 20 mg IVP ONCE ONE Stop: 08/05/22 16:01 Last Admin: 08/05/22 15:38 Dose: 20 mg Documented By: MAR IV Push Document 08/05/22 15:38 (Rec: 08/05/22 15:38 [id number]) Push Drug Pushed Over 3 Hydromorphone HCl (Hydromorphone 1 Mg/Ml Inj 1 Ml) 1 mg IVP ONCE ONE Stop: 08/04/22 10:37 Last Admin: 08/04/22 10:40 Dose: 1 mg Documented By: (2) MAR Pain with Respiratory Document 08/04/22 10:40 (2) (Rec: 08/04/22 10:41 (2) [id number]) Respiratory Respiratory Rate (12-18) 18 MAR IV Push Document 08/04/22 10:40 (2) (Rec: 08/04/22 10:41 (2) [id number]) Push Drug Pushed Over 2 Hydromorphone HCl (Hydromorphone 1 Mg/Ml Inj 1 Ml) 1 mg IVP Q2H PRN PRN Reason: pain Last Admin: 08/05/22 05:14 Dose: 1 mg Documented By: SC MAR Pain with Respiratory Document 08/05/22 05:14 SC (Rec: 08/05/22 05:14 SC [id number]) Pain Scale Pain Intensity 10 Scale Used Numeric (1 - 10) Management Techniques Pain Alleviating Factors Medication,Changing Position, Distraction Respiratory Respiratory Rate (12-18) 18 Respiratory Depth Normal Respiratory Effort Spontaneous,Non-Labored Admin: 08/05/22 02:35 Dose: 1 mg Documented By: SC MAR Pain with Respiratory Document 08/05/22 02:35 SC (Rec: 08/05/22 02:36 SC [id number]) Pain Scale Pain Intensity 10 Scale Used Numeric (1 - 10) Location Pain Location l leg/hip Management Techniques Pain Alleviating Factors Medication,Distraction Respiratory Respiratory Rate (12-18) 17 Respiratory Depth Normal Respiratory Effort Spontaneous,Non-Labored Admin: 08/04/22 21:31 Dose: 1 mg Documented By: SC MAR Pain with Respiratory Document 08/04/22 21:31 SC (Rec: 08/04/22 21:32 SC [id number]) Pain Scale Pain Intensity 10 Scale Used Numeric (1 - 10) Location Pain Location l hip/leg Management Techniques Pain Alleviating Factors Medication,Darkened Room Respiratory Respiratory Rate (12-18) 16 Respiratory Depth Normal Respiratory Effort Spontaneous,Non-Labored Respiratory Pattern Normal Admin: 08/04/22 18:14 Dose: 1 mg Documented By: CB MAR Pain with Respiratory Document 08/04/22 18:14 CB (Rec: 08/04/22 18:14 CB [id number]) Pain Assessment Reason Not Required Scheduled Medication Pain Scale Pain Intensity 10 Scale Used Numeric (1 - 10) Location Pain Location left hip Management Techniques Pain Alleviating Factors Medication,Changing Position, Darkened Room,Distraction Respiratory Respiratory Rate (12-18) 18 Respiratory Depth Normal Respiratory Effort Spontaneous,Non-Labored Respiratory Pattern Normal MAR IV Push Document 08/04/22 18:14 CB (Rec: 08/04/22 18:14 CB [id number]) Push Drug Pushed Over 4 Admin: 08/04/22 15:16 Dose: 1 mg Documented By: (2) MAR Pain with Respiratory Document 08/04/22 15:16 (2) (Rec: 08/04/22 15:16 (2) [id number]) Pain Scale Pain Intensity 5 Scale Used Numeric (1 - 10) Respiratory Respiratory Rate (12-18) 17 MAR IV Push Document 08/04/22 15:16 (2) (Rec: 08/04/22 15:16 (2) [id number]) Push Drug Pushed Over 2 Hydromorphone HCl (Hydromorphone 1 Mg/Ml Inj 1 Ml) 1 mg IVP ONCE ONE Stop: 08/04/22 11:24 Last Admin: 08/04/22 11:50 Dose: 1 mg Documented By: (2) MAR Pain with Respiratory Document 08/04/22 11:50 (2) (Rec: 08/04/22 12:36 (2) [id number]) Pain Scale Pain Intensity 5 Scale Used Numeric (1 - 10) Respiratory Respiratory Rate (12-18) 16 Hydromorphone HCl (Hydromorphone 1 Mg/Ml Inj 1 Ml) 1.5 mg IVP Q2H PRN PRN Reason: pain Last Admin: 08/05/22 13:28 Dose: 1.5 mg Documented By: [facility] Pain with Respiratory Document 08/05/22 13:28 (Rec: 08/05/22 13:29 [id number]) Pain Assessment Reason Not Required Scheduled Medication Pain Scale Pain Intensity 7 Scale Used Numeric (1 - 10) Location Pain Location l hip Management Techniques Pain Alleviating Factors Medication Respiratory Respiratory Rate (12-18) 20 H Respiratory Depth Normal Respiratory Effort Spontaneous,Non-Labored Respiratory Pattern Normal Pulse Oximetry (90-100) 94 MAR IV Push Document 08/05/22 13:28 (Rec: 08/05/22 13:29 [id number]) Push Drug Pushed Over 5 Admin: 08/05/22 10:30 Dose: 1.5 mg Documented By: [facility] Pain with Respiratory Document 08/05/22 10:30 (Rec: 08/05/22 10:31 [id number]) Pain Assessment Reason Not Required Scheduled Medication Pain Scale Pain Intensity 10 Scale Used Numeric (1 - 10) Location Pain Location l hip Management Techniques Pain Alleviating Factors Medication Respiratory Respiratory Rate (12-18) 14 Respiratory Depth Normal Respiratory Effort Spontaneous Respiratory Pattern Normal MAR IV Push Document 08/05/22 10:30 (Rec: 08/05/22 10:31 [id number]) Push Drug Pushed Over 4 Hydromorphone HCl (Hydromorphone 1 Mg/Ml Inj 1 Ml) 1 mg IVP Q2H PRN PRN Reason: pain Hydromorphone HCl (Hydromorphone 1 Mg/Ml Inj 1 Ml) 1 mg IVP Q4H PRN PRN Reason: pain Last Admin: 08/06/22 03:01 Dose: 1 mg Documented By: SC MAR Pain with Respiratory Document 08/06/22 03:01 SC (Rec: 08/06/22 03:02 SC [id number]) Pain Scale Pain Intensity 8 Scale Used Numeric (1 - 10) Location Pain Location hip/leg Management Techniques Pain Alleviating Factors Medication,Changing Position, Distraction Respiratory Respiratory Rate (12-18) 16 Respiratory Depth Normal Respiratory Effort Spontaneous,Non-Labored Admin: 08/05/22 18:56 Dose: 1 mg Documented By: MAR Pain with Respiratory Document 08/05/22 18:56 (Rec: 08/05/22 18:57 [id number]) Pain Assessment Reason Not Required Scheduled Medication Pain Scale Pain Intensity 10 Scale Used Numeric (1 - 10) Location Pain Location back Management Techniques Pain Alleviating Factors Medication Respiratory Respiratory Rate (12-18) 14 Respiratory Depth Normal Respiratory Effort Spontaneous,Non-Labored Respiratory Pattern Normal MAR IV Push Document 08/05/22 18:56 (Rec: 08/05/22 18:57 [id number]) Push Drug Pushed Over 3 Sodium Chloride (Sodium Chloride 0.9%) 1,000 mls @ 75 mls/hr IV .[id number] [facility] Last Infusion: 08/05/22 15:36 Dose: 75 mls/hr Documented By: Infusion/Titration Document 08/05/22 15:36 (Rec: 08/05/22 15:37 [id number]) Intake Intake 350 Cumulative Intake (bag) 350 Cumulative Intake (Rx) 2,001.25 Container Volume 0 Waste Amount 650 Dosing Infusion Rate 75 Cumulative Dose Not Applicable Increase/Decrease Infused Elapsed Time Elapsed Time (minutes) 26h 46m Admin: 08/05/22 10:56 Dose: 75 mls/hr Documented By: Infusion/Titration Document 08/05/22 10:56 (Rec: 08/05/22 10:56 [id number]) Intake Cumulative Intake (Rx) 1,651.25 Container Volume 1,000 Waste Amount 0 Dosing Infusion Rate 75 Cumulative Dose Not Applicable Increase/Decrease Started/Running Elapsed Time Elapsed Time (minutes) 22h 6m Infusion: 08/05/22 10:56 Dose: 0 mls/hr Documented By: Infusion/Titration Document 08/05/22 10:56 (Rec: 08/05/22 10:56 [id number]) Intake Intake 1,000 Cumulative Intake (bag) 1,000 Cumulative Intake (Rx) 1,651.25 Container Volume 0 Waste Amount 0 Dosing Infusion Rate 0 Cumulative Dose Not Applicable Increase/Decrease Infused Elapsed Time Elapsed Time (minutes) 22h 6m Admin: 08/04/22 21:31 Dose: 75 mls/hr Documented By: SC Infusion/Titration Document 08/04/22 21:31 SC (Rec: 08/04/22 21:31 SC [id number]) IV Site IV SITE Left Forearm Intake Cumulative Intake (Rx) 651.25 Container Volume 1,000 Waste Amount 0 Dosing Infusion Rate 75 Cumulative Dose Not Applicable Increase/Decrease Started/Running Elapsed Time Elapsed Time (minutes) 8h 41m Infusion: 08/04/22 21:31 Dose: 75 mls/hr Documented By: SC Infusion/Titration Document 08/04/22 21:31 SC (Rec: 08/04/22 21:31 SC [id number]) Intake Intake 651.25 Cumulative Intake (bag) 651.25 Cumulative Intake (Rx) 651.25 Container Volume 0 Waste Amount 348.75 Dosing Infusion Rate 75 Cumulative Dose Not Applicable Increase/Decrease Infused Elapsed Time Elapsed Time (minutes) 8h 41m Admin: 08/04/22 12:50 Dose: 75 mls/hr Documented By: (2) Infusion/Titration Document 08/04/22 12:50 (2) (Rec: 08/04/22 12:50 (2) [id number]) Intake Container Volume 1,000 Waste Amount 0 Dosing Infusion Rate 75 Cumulative Dose Not Applicable Increase/Decrease Started Elapsed Time Elapsed Time (minutes) 0m Supplies Used Document 08/04/22 12:50 (2) (Rec: 08/04/22 12:50 (2) [id number]) NEW Infusion Supplies Used Primary Tubing Used 1 Ceftriaxone Sodium 1,000 mg/ (Sodium Chloride) 50 mls @ 100 mls/hr IV Q24H IDA; Protocol Last Infusion: 08/06/22 18:02 Dose: 0 mls/hr Documented By: Infusion/Titration Document 08/06/22 18:02 (Rec: 08/06/22 18:02 [id number]) Intake Intake 50 Cumulative Intake (bag) 50 Cumulative Intake (Rx) 50 Container Volume 0 Waste Amount 0 Dosing Infusion Rate 0 Cumulative Dose 1000 Increase/Decrease Infused Elapsed Time Elapsed Time (minutes) 48m Admin: 08/06/22 17:14 Dose: 100 mls/hr Documented By: Infusion/Titration Document 08/06/22 17:14 (Rec: 08/06/22 17:14 [id number]) Intake Container Volume 50 Waste Amount 0 Dosing Infusion Rate 100 Increase/Decrease Started Elapsed Time Elapsed Time (minutes) 0m Iohexol (Iohexol 350 Mg/Ml 500 Ml Btl (Per Ml)) 0 ml IV ONCE ONE Stop: 08/04/22 07:40 Last Admin: 08/04/22 07:39 Dose: 100 ml Documented By: NUNO Comments: ml Morphine Sulfate (Morphine 4 Mg/Ml Sdv 1 Ml) 4 mg IVP ONCE ONE Stop: 08/04/22 05:20 Last Admin: 08/04/22 05:30 Dose: 4 mg Documented By: MG Ondansetron HCl (Ondansetron 2 Mg/Ml Sdv 2 Ml) 4 mg IVP ONCE ONE Stop: 08/04/22 05:20 Last Admin: 08/04/22 05:27 Dose: 4 mg Documented By: MG Ondansetron HCl (Ondansetron 2 Mg/Ml Sdv 2 Ml) 4 mg IVP Q4H PRN PRN Reason: NAUSEA AND VOMITING Last Admin: 08/05/22 13:32 Dose: 4 mg Documented By: MAR IV Push Document 08/05/22 13:32 (Rec: 08/05/22 13:32 [id number]) Push Drug Pushed Over 2 Notes 08/13/22 13:08 Conference Manager Note by Scooby Elias IMM Updated Updated pt on IMM. No questions voiced. Provided pt a copy. Initialed, dated, & timed copy in chart. Initialized on 08/13/22 13:08 - END OF NOTE 08/13/22 07:10 (created 08/13/22 07:50) Nurse Note by La Mireles Bedside reported completed with Daniella RN at this time. Patient is resting in bed. Initialized on 08/13/22 07:50 - END OF NOTE 08/05/22 10:23 Pastoral Care Encounter by Michael Lynn Pastoral Care Encounter/Spiritual Assessment Type of Contact [] Declined recording artist visit [] Patient/Family/Request visit [] Outpatient visit [] Follow-up visit [] Physician referral [] Code/Alert [x] Routine visit [] Staff referral [] Actively dying [] Patient sleeping [] Family support [] [] Out of room [] Palliative care [] [] Receiving care in room [] Pre-surgical visit [] Trauma [] Long length of stay [] ICU visit [] Other: Relational/Emotional Strength [x] Patient feels connected with others/family/visitors/staff [] Distress [] Loneliness/isolation [] Abandonment Spirituality of Patient [x] Person of [place] [x] Attends Latter Day of their [place] [x] Believes in Prayer [x] Reads Bible or Jehovah'S Witness materials [] 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 [x] Prayer [x] Active listening [] Non-anxious presence [x] Spiritual/emotional support [] Crisis/trauma care [] Spiritual counseling [] Bereavement support [] Provided bereavement packet [] Provided Bible/devotional materials [] Provided toy/stuffed animal, coloring book to patient or family member [] Provided Communion [] Anointing/[place] [] Salvation [x] Completed spiritual assessment [] Other: Impact on Illness or Injury [] Angry [] Fearful [] Anxious [] Often cries [] Exhaustion [] Unable to work [] Unable to attend baptist [] Unable to walk/stand [] Unable to read [] Unable to drive [] Unable to eat/drink [] Unable to sleep [] Unable to be with family [] Patient intubated [] Other: Summary Time spent with patient 15 min Initialized on 08/05/22 10:23 - END OF NOTE 08/04/22 07:49 Pharmacy Note by Yolande Calvin pt states she takes care of her own medications-pt states she just takes her carvedilol 3.125mg qam ext med history shows last filled 08/30/22 3.125mg bid -pt states takes her pantoprazole 40mg qam ext med history shows last filled 40mg bid 04/16/22 90d/s-pt states she stop taking her gabapentin 100mg hs a month ago ext med history shows last filled 04/16/22 90d/s Initialized on 08/04/22 07:49 - END OF NOTE Orders 08/13/22 09:00 lidocaine 5% patch [Lidoderm 5% Patch] 1 patch TOPICAL [id number] Social Hx (Last Reviewed 08/08/22 @ 09:02 by Sandro Clark DO) Tobacco/Nicotine Use: Smoking and tobacco status: never smoked Alcohol Use: Alcohol intake: never Substance Use: Substance/Drug Use: never Surgical Hx (Last Reviewed 08/08/22 @ 09:02 by Sandro Clark DO) History of back surgery (Surgical) Z98.890 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 Intake & Output 08/13/22 08/13/22 08/13/22 06:59 10:59 14:59 Intake: Oral 120 / 120 Other: # Voids 2 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 Admission Assessment Start: 08/04/22 15:41 Freq: ONCE Status: Complete Protocol: Document 08/04/22 15:41 CB (Rec: 08/04/22 16:14 CB [id number]) General Questions Date of Arrival on Unit 08/04/22 Time of Arrival on Unit 15:35 Arrived From Emergency Dept Mode of Arrival Stretcher/Néstorney Patient Stated Complaint left hip and leg pain post back surgery on friday08/02/22 Onset of Chief Complaint Friday History Provided By Patient Patient Hospitalized in Last 30 Days Yes Recent Out of Country Travel Within the No Last 8 Weeks Clinical Trial Participant No Stroke Symptom Onset Unknown No Deep Vein Thrombosis/Pulmonary Embolism No Present on Admission Advance Directives Advance Directives No Living Will No Guardian No Medical Power of Thread Singer No Risk Assessment Nurtritional Risks None Denture Type Full- Upper & Lower Do You Have Trouble Feeding Yourself? No Do You Use Any Adaptive Feeding No Equipment at Home Have You Lost Weight Recently Without No Trying? Have You Been Eating Poorly Because Of A No Decreased Appetite Malnutrition Screening Tool Score 0 Cultural, Jehovah'S Witness or Ethnic Practices No Affecting Your Diet Services Prior to Admission None Do You Have Someone to Help You at Home No Does This Person Live With You No Are They Available & Capable of Caring No For You S Score 3 Tuberculosis Symptoms None TB Risk Factors None History or Current Diagnosis of: None Diarrhea With Recent Antibiotic Therapy No Readmitted with Possible Surgical Site Yes Infection Are You Experiencing a Fever, Persistent No Cough or Shortness In Past 14 Days, Have You Been Exposed No to Anyone That Has Be Has Pt Tested Positive at Another No Facility in Past 14 Days Concerns & Reporting Would You Like to See Someone From No Pastoral Care Any Jehovah'S Witness/Cultural Practices No Affecting Hospitalization Communication Assessment Comprehension Ability Understands Concepts Ability to Follow Directions Excellent Able to Read Yes Able to Write Yes Motivation Level Asks Questions Learning Preferences One-on-One Instruction,Written Knowledge of Current Illness Fair Self-Rating of Health Fair Safety Assessment Precautions/Isolation [place] ADL Assessment Changes in Patient's Self Care Ability Yes in Past Week Patient's Current Self Care Ability Maximum Assistance Ambulation Ability Total Assistance Needed Equipment for Patient Transport Hospital Bed,Walker Assistive Devices Rolling Walker Assistive Device With Patient No Sleeping Aids Medication Home Oxygen Therapy No Home Oxygen Amount none Aggression Rating Tool Start: 08/04/22 05:15 Freq: ONCE Status: Discharge Protocol: Document 08/04/22 05:17 [email or web address] (Rec: 08/04/22 05:23 [id number] [id number]) Aggression Rating and 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 Behavior Level 0 Aggression Rating Tool Start: 08/04/22 15:41 Freq: ONCE Status: Active Protocol: Document 08/04/22 15:41 CB (Rec: 08/04/22 16:14 CB [id number]) Aggression Rating and 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 Behavior Level 0 Aspiration Precautions Start: 08/06/22 13:27 Freq: QSHIFT Status: Active Protocol: Document 08/06/22 20:00 SC (Rec: 08/06/22 21:19 SC [id number]) Document 08/07/22 08:00 LB (Rec: 08/07/22 11:37 LB [id number]) Document 08/07/22 20:00 AC (Rec: 08/07/22 23:53 AC [id number]) Document 08/08/22 08:00 LB (Rec: 08/08/22 12:01 LB [id number]) Document 08/08/22 20:00 AC (Rec: 08/08/22 21:43 AC [id number]) Document 08/09/22 08:00 SK (Rec: 08/09/22 08:26 SK [id number]) Document 08/09/22 19:59 AC (Rec: 08/09/22 20:05 AC [id number]) Document 08/10/22 08:00 [id number] (Rec: 08/10/22 16:33 [id number] [id number]) Document 08/10/22 20:00 EM (Rec: 08/10/22 20:56 EM [id number]) Document 08/11/22 08:00 MCGHA2 (Rec: 08/11/22 16:49 [id number] [id number]) Document 08/11/22 20:00 FM (Rec: 08/11/22 22:28 FM [email or web address]) Document 08/12/22 08:00 MCGHA2 (Rec: 08/12/22 16:24 [id number] [id number]) Document 08/12/22 20:00 FM (Rec: 08/12/22 21:52 FM [id number]) Document 08/13/22 07:48 KN (Rec: 08/13/22 07:49 KN [id number]) Assess Neurologic Status Start: 08/04/22 10:47 Freq: Q1MX1,Q4HR Status: Complete Protocol: Document 08/04/22 14:25 (2) (Rec: 08/04/22 14:25 (2) [id number]) Neuro Checks Eye Opening Spontaneous Verbal Response Orientated Motor Response Obey Commands [place] Coma Scale Total 15 Patient Orientation Person,Place,Time Facial Symmetry Symmetrical Ocular Movements Full Range Speech Pattern Appropriate,Clear Corporate Technical Recruiter Equal Document 08/04/22 16:00 CB (Rec: 08/04/22 16:19 CB [id number]) Neuro Checks Eye Opening Spontaneous Verbal Response Orientated Motor Response Obey Commands [place] Coma Scale Total 15 Patient Orientation Person,Place,Time,Situation Facial Symmetry Symmetrical Ocular Movements Full Range Speech Pattern Appropriate,Clear Right Movement/Strength +1 - Slight Movement. Left Movement/Strength +1 - Slight Movement. Bilateral Pupil Reaction Brisk Pupil [place] PERRL Post tPA Neuro Assessment Eye Opening Spontaneous Verbal Response Orientated Motor Response Obey Commands Patient orientation (short list) Person,Place,Time,Situation Facial Symmetry Symmetrical Ocular Movements Full Range Speech Pattern Appropriate,Clear Corporate Technical Recruiter Equal Pupil Reaction Brisk Pupil Size (mm) 3 Pupil [place] PERRL Right Movement/Strength +1 - Slight Movement. Left Movement/Strength +1 - Slight Movement. Document 08/04/22 20:00 SC (Rec: 08/04/22 21:47 SC [id number]) Neuro Checks Eye Opening Spontaneous Verbal Response Orientated Patient Orientation Person,Place,Time,Situation Facial Symmetry Symmetrical Ocular Movements Full Range Speech Pattern Appropriate,Clear Right Movement/Strength +5 - Full ROM, Full Strength. Left Movement/Strength +4 - Full ROM, Less Than Normal Strength. Bilateral Pupil Reaction Brisk Pupil [place] PERRLA Bilateral Finger to Nose Test Normal Performance Document 08/05/22 00:00 MI (Rec: 08/05/22 01:14 MI [id number]) Neuro Checks Eye Opening Spontaneous Verbal Response Orientated Patient Orientation Person,Place,Time,Situation Facial Symmetry Symmetrical Ocular Movements Full Range Speech Pattern Appropriate,Clear Right Movement/Strength +5 - Full ROM, Full Strength. Left Movement/Strength +4 - Full ROM, Less Than Normal Strength. Bilateral Pupil Reaction Brisk Pupil [place] PERRLA Bilateral Finger to Nose Test Normal Performance Post tPA Neuro Assessment Temperature (97.6 F-99.6 F) 100.0 F H Pulse Rate (60-100) 92 Blood Pressure 148/70 Respiratory Rate (12-18) 16 Eye Opening Spontaneous Verbal Response Orientated Patient orientation (short list) Person,Place,Time,Situation Facial Symmetry Symmetrical Ocular Movements Full Range Speech Pattern Appropriate,Clear Pupil Reaction Brisk Pupil Size (mm) 3 Pupil [place] PERRL Right Movement/Strength +5 - Full ROM, Full Strength. Left Movement/Strength +4 - Full ROM, Less Than Normal Strength. Document 08/05/22 04:00 MI (Rec: 08/05/22 05:30 MI [id number]) Neuro Checks Eye Opening Spontaneous Verbal Response Orientated Motor Response Obey Commands [place] Coma Scale Total 15 Patient Orientation Person,Place,Time,Situation Facial Symmetry Symmetrical Ocular Movements Full Range Speech Pattern Appropriate,Clear Corporate Technical Recruiter Equal Right Movement/Strength +4 - Full ROM, Less Than Normal Strength. Left Movement/Strength +4 - Full ROM, Less Than Normal Strength. Document 08/05/22 10:45 (Rec: 08/05/22 10:48 [id number]) Neuro Checks Eye Opening Spontaneous Verbal Response Orientated Motor Response Obey Commands [place] Coma Scale Total 15 Patient Orientation Person,Place,Time,Situation Facial Symmetry Symmetrical Ocular Movements Full Range Speech Pattern Appropriate Right Movement/Strength +3 - Can Raise Extremity but Not Against Resistance. Left Movement/Strength +2 - Can Move Extremity but Not Lift It. Bilateral Pupil Reaction Brisk Pupil [place] PERRLA Bilateral Finger to Nose Test Minimal Impairment Heel to [place]son Test Severe Impairment Post tPA Neuro Assessment Eye Opening Spontaneous Verbal Response Orientated Motor Response Obey Commands Patient orientation (short list) Person,Place,Time,Situation Facial Symmetry Symmetrical Ocular Movements Full Range Speech Pattern Appropriate Pupil Reaction Brisk Pupil [place] PERRLA Right Movement/Strength +3 - Can Raise Extremity but Not Against Resistance. Left Movement/Strength +2 - Can Move Extremity but Not Lift It. Right Finger to Nose Test Minimal Impairment Heel to [place] Test Moderate Impairment Left Finger to Nose Test Minimal Impairment Heel to [place] Test Activity Impossible Document 08/05/22 12:00 (Rec: 08/05/22 13:18 [id number]) Neuro Checks Eye Opening Spontaneous Verbal Response Orientated Motor Response Obey Commands [place] Coma Scale Total 15 Patient Orientation Person,Place,Time,Situation Facial Symmetry Symmetrical Ocular Movements Full Range Speech Pattern Appropriate,Animated Right Movement/Strength +3 - Can Raise Extremity but Not Against Resistance. Left Movement/Strength +2 - Can Move Extremity but Not Lift It. Bilateral Pupil Reaction Brisk Pupil [place] PERRLA Bilateral Finger to Nose Test Minimal Impairment Heel to [place] Test Minimal Impairment Post tPA Neuro Assessment Eye Opening Spontaneous Verbal Response Orientated Motor Response Obey Commands Patient orientation (short list) Person,Place,Time,Situation Facial Symmetry Symmetrical Ocular Movements Full Range Speech Pattern Appropriate,Clear Corporate Technical Recruiter Equal Pupil Reaction Brisk Pupil [place] PERRLA Right Movement/Strength +3 - Can Raise Extremity but Not Against Resistance. Left Movement/Strength +2 - Can Move Extremity but Not Lift It. Right Finger to Nose Test Minimal Impairment Heel to [place] Test Moderate Impairment Left Finger to Nose Test Minimal Impairment Heel to [place] Test Severe Impairment Document 08/05/22 15:43 (Rec: 08/05/22 15:46 [id number]) Neuro Checks Eye Opening Spontaneous Verbal Response Orientated Motor Response Obey Commands [place] Coma Scale Total 15 Patient Orientation Person,Place,Time,Situation Facial Symmetry Symmetrical Ocular Movements Full Range Speech Pattern Appropriate Right Movement/Strength +3 - Can Raise Extremity but Not Against Resistance. Left Movement/Strength +2 - Can Move Extremity but Not Lift It. Bilateral Pupil Reaction Brisk Pupil [place] PERRLA Bilateral Finger to Nose Test Minimal Impairment Heel to [place] Test Severe Impairment Post tPA Neuro Assessment Eye Opening Spontaneous Verbal Response Orientated Motor Response Obey Commands Patient orientation (short list) Person,Place,Time,Situation Facial Symmetry Symmetrical Ocular Movements Full Range Speech Pattern Appropriate Pupil Reaction Brisk Pupil [place] PERRLA Right Movement/Strength +3 - Can Raise Extremity but Not Against Resistance. Left Movement/Strength +2 - Can Move Extremity but Not Lift It. Right Finger to Nose Test Minimal Impairment Heel to [place] Test Moderate Impairment Left Finger to Nose Test Minimal Impairment Heel to [place] Test Severe Impairment Document 08/05/22 20:00 MI (Rec: 08/06/22 00:43 MI [id number]) Neuro Checks Eye Opening Spontaneous Verbal Response Orientated Motor Response Obey Commands [place] Coma Scale Total 15 Patient Orientation Person,Place,Situation Facial Symmetry Symmetrical Ocular Movements Full Range Speech Pattern Appropriate,Clear Right Movement/Strength +4 - Full ROM, Less Than Normal Strength. Left Movement/Strength +1 - Slight Movement. Bilateral Pupil Reaction Brisk Pupil [place] PERRLA Bilateral Finger to Nose Test Normal Performance Document 08/06/22 00:00 MI (Rec: 08/06/22 01:36 MI [id number]) Neuro Checks Eye Opening Spontaneous Verbal Response Orientated Motor Response Obey Commands [place] Coma Scale Total 15 Patient Orientation Person,Place,Situation Facial Symmetry Symmetrical Ocular Movements Full Range Speech Pattern Appropriate,Clear Right Movement/Strength +4 - Full ROM, Less Than Normal Strength. Left Movement/Strength +1 - Slight Movement. Bilateral Pupil Reaction Brisk Pupil [place] PERRLA Bilateral Finger to Nose Test Normal Performance Post tPA Neuro Assessment Temperature (97.6 F-99.6 F) 97.7 F Pulse Rate (60-100) 78 Blood Pressure 153/72 Respiratory Rate (12-18) 16 Eye Opening Spontaneous Verbal Response Orientated Motor Response Obey Commands Patient orientation (short list) Person,Place,Situation Facial Symmetry Symmetrical Ocular Movements Full Range Speech Pattern Appropriate,Clear Pupil Reaction Brisk Pupil [place] PERRLA Right Movement/Strength +4 - Full ROM, Less Than Normal Strength. Left Movement/Strength +1 - Slight Movement. Right Finger to Nose Test Minimal Impairment Heel to [place] Test Moderate Impairment Left Finger to Nose Test Minimal Impairment Heel to [place] Test Severe Impairment Document 08/06/22 04:00 MI (Rec: 08/06/22 04:44 MI [id number]) Neuro Checks Eye Opening Spontaneous Verbal Response Orientated Motor Response Obey Commands [place] Coma Scale Total 15 Patient Orientation Person,Place,Situation Facial Symmetry Symmetrical Ocular Movements Full Range Speech Pattern Appropriate,Clear Right Movement/Strength +4 - Full ROM, Less Than Normal Strength. Left Movement/Strength +1 - Slight Movement. Bilateral Pupil Reaction Brisk Pupil [place] PERRLA Bilateral Finger to Nose Test Normal Performance Document 08/06/22 08:00 (Rec: 08/06/22 12:12 [id number]) Neuro Checks Eye Opening Spontaneous Verbal Response Orientated Motor Response Obey Commands [place] Coma Scale Total 15 Patient Orientation Person,Place,Time,Situation Facial Symmetry Symmetrical Ocular Movements Full Range Speech Pattern Appropriate Right Movement/Strength +3 - Can Raise Extremity but Not Against Resistance. Left Movement/Strength +2 - Can Move Extremity but Not Lift It. Bilateral Finger to Nose Test Moderate Impairment Heel to [place]son Test Severe Impairment Post tPA Neuro Assessment Eye Opening Spontaneous Verbal Response Confused Motor Response Withdrawal From Pain Patient orientation (short list) Person Facial Symmetry Symmetrical Ocular Movements Full Range Speech Pattern Appropriate,Clear,Delayed Pupil Reaction Brisk Pupil [place] PERRLA Right Movement/Strength +3 - Can Raise Extremity but Not Against Resistance. Left Movement/Strength +2 - Can Move Extremity but Not Lift It. Right Finger to Nose Test Moderate Impairment Heel to [place] Test Moderate Impairment Left Finger to Nose Test Moderate Impairment Heel to [place] Test Severe Impairment Document 08/06/22 12:13 (Rec: 08/06/22 12:14 [id number]) Neuro Checks Eye Opening Spontaneous Verbal Response Confused Motor Response Withdrawal From Pain [place] Coma Scale Total 12 Patient Orientation Person Facial Symmetry Symmetrical Ocular Movements Full Range Speech Pattern Appropriate,Clear,Delayed Right Movement/Strength +3 - Can Raise Extremity but Not Against Resistance. Left Movement/Strength +2 - Can Move Extremity but Not Lift It. Bilateral Finger to Nose Test Moderate Impairment Heel to [place] Test Severe Impairment Post tPA Neuro Assessment Eye Opening Spontaneous Verbal Response Confused Motor Response Obey Commands Patient orientation (short list) Person Facial Symmetry Symmetrical Ocular Movements Full Range Speech Pattern Appropriate,Clear,Delayed Right Movement/Strength +3 - Can Raise Extremity but Not Against Resistance. Left Movement/Strength +2 - Can Move Extremity but Not Lift It. Right Finger to Nose Test Moderate Impairment Heel to [place] Test Moderate Impairment Left Finger to Nose Test Moderate Impairment Heel to [place] Test Severe Impairment Document 08/06/22 16:00 (Rec: 08/06/22 17:54 [id number]) Neuro Checks Eye Opening To Pain Verbal Response Orientated Motor Response Obey Commands [place] Coma Scale Total 13 Patient Orientation Person Facial Symmetry Symmetrical Ocular Movements Full Range Speech Pattern Appropriate Right Movement/Strength +3 - Can Raise Extremity but Not Against Resistance. Left Movement/Strength +2 - Can Move Extremity but Not Lift It. Bilateral Pupil Reaction Brisk Pupil [place] PERRLA Bilateral Finger to Nose Test Minimal Impairment Post tPA Neuro Assessment Eye Opening To Pain Verbal Response Orientated Motor Response Obey Commands Patient orientation (short list) Person,Place Facial Symmetry Symmetrical Ocular Movements Full Range Speech Pattern Appropriate Corporate Technical Recruiter Equal Pupil Reaction Brisk Pupil [place] PERRLA Right Movement/Strength +3 - Can Raise Extremity but Not Against Resistance. Left Movement/Strength +2 - Can Move Extremity but Not Lift It. Right Finger to Nose Test Minimal Impairment Heel to [place] Test Moderate Impairment Left Finger to Nose Test Minimal Impairment Heel to [place] Test Severe Impairment Document 08/06/22 20:00 MI (Rec: 08/06/22 21:20 MI [id number]) Neuro Checks Eye Opening Spontaneous Verbal Response Confused Motor Response Obey Commands [place] Coma Scale Total 14 Patient Orientation Person,Place Facial Symmetry Symmetrical Ocular Movements Full Range Speech Pattern Clear Corporate Technical Recruiter Equal Right Movement/Strength +4 - Full ROM, Less Than Normal Strength. Left Movement/Strength +3 - Can Raise Extremity but Not Against Resistance. Bilateral Pupil Reaction Brisk Pupil [place] PERRLA Bilateral Finger to Nose Test Normal Performance Document 08/07/22 00:00 MI (Rec: 08/07/22 02:26 MI [id number]) Neuro Checks Eye Opening Spontaneous Verbal Response Confused Motor Response Obey Commands [place] Coma Scale Total 14 Patient Orientation Person,Place Facial Symmetry Symmetrical Speech Pattern Appropriate,Clear Right Movement/Strength +4 - Full ROM, Less Than Normal Strength. Left Movement/Strength +4 - Full ROM, Less Than Normal Strength. Bilateral Pupil Reaction Brisk Pupil [place] PERRLA Document 08/07/22 04:00 MI (Rec: 08/07/22 04:30 MI [id number]) Neuro Checks Eye Opening Spontaneous Verbal Response Orientated Motor Response Obey Commands [place] Coma Scale Total 15 Patient Orientation Person,Place,Situation Facial Symmetry Symmetrical Ocular Movements Full Range Speech Pattern Appropriate,Clear Right Movement/Strength +4 - Full ROM, Less Than Normal Strength. Left Movement/Strength +4 - Full ROM, Less Than Normal Strength. Bilateral Pupil Reaction Brisk Bilateral Finger to Nose Test Normal Performance Assess Neurologic Status Start: 08/06/22 13:27 Freq: Q1MX1,Q4HR Status: Active Protocol: Document 08/06/22 13:27 (Rec: 08/06/22 17:50 [id number]) Neuro Checks Eye Opening To Pain Verbal Response Confused Motor Response Withdrawal From Pain [place] Coma Scale Total 10 Patient Orientation Person Facial Symmetry Symmetrical Ocular Movements Full Range Speech Pattern Appropriate,Mumbled Right Movement/Strength +3 - Can Raise Extremity but Not Against Resistance. Left Movement/Strength +2 - Can Move Extremity but Not Lift It. Bilateral Pupil Reaction Brisk Pupil [place] PERRLA Bilateral Finger to Nose Test Moderate Impairment Heel to [place]son Test Severe Impairment Post tPA Neuro Assessment Eye Opening Spontaneous Verbal Response Orientated Motor Response Obey Commands Patient orientation (short list) Person,Place Facial Symmetry Symmetrical Ocular Movements Full Range Speech Pattern Appropriate,Mumbled Corporate Technical Recruiter Equal Pupil Reaction Brisk Pupil [place] PERRLA Right Movement/Strength +3 - Can Raise Extremity but Not Against Resistance. Left Movement/Strength +2 - Can Move Extremity but Not Lift It. Right Heel to Dobson Test Moderate Impairment Left Finger to Nose Test Minimal Impairment Heel to Dobson Test Severe Impairment Document 08/06/22 16:00 (Rec: 08/06/22 17:54 [id number]) Neuro Checks Eye Opening To Pain Verbal Response Orientated Motor Response Obey Commands [place] Coma Scale Total 13 Patient Orientation Person Facial Symmetry Symmetrical Ocular Movements Full Range Speech Pattern Appropriate Right Movement/Strength +3 - Can Raise Extremity but Not Against Resistance. Left Movement/Strength +2 - Can Move Extremity but Not Lift It. Bilateral Pupil Reaction Brisk Pupil [place] PERRLA Bilateral Finger to Nose Test Minimal Impairment Post tPA Neuro Assessment Eye Opening To Pain Verbal Response Orientated Motor Response Obey Commands Patient orientation (short list) Person,Place Facial Symmetry Symmetrical Ocular Movements Full Range Speech Pattern Appropriate [employer] Rec[employer]iter Equal Pupil Reaction Brisk Pupil [place] PERRLA Right Movement/Strength +3 - Can Raise Extremity but Not Against Resistance. Left Movement/Strength +2 - Can Move Extremity but Not Lift It. Right Finger to Nose Test Minimal Impairment Heel to Dobson Test Moderate Impairment Left Finger to Nose Test Minimal Impairment Heel to Dobson Test Severe Impairment Document 08/06/22 20:00 SC (Rec: 08/06/22 21:21 SC [id number]) Neuro Checks Eye Opening Spontaneous Verbal Response Confused Motor Response Obey Commands [place] Coma Scale Total 14 Patient Orientation Person,Place Facial Symmetry Symmetrical Ocular Movements Full Range Speech Pattern Clear [employer] Rec[employer]iter Equal Right Movement/Strength +4 - Full ROM, Less Than Normal Strength. Left Movement/Strength +3 - Can Raise Extremity but Not Against Resistance. Bilateral Pupil Reaction Brisk Pupil [place] PERRLA Bilateral Finger to Nose Test Normal Performance Post tPA Neuro Assessment Temperature (97.6 F-99.6 F) 97.7 F Pulse Rate (60-100) 71 Blood Pressure 141/71 Respiratory Rate (12-18) 17 Eye Opening Spontaneous Verbal Response Confused Motor Response Obey Commands Patient orientation (short list) Person,Place Facial Symmetry Symmetrical Ocular Movements Full Range Speech Pattern Clear [employer] Rec[employer]iter Equal Pupil Reaction Brisk Pupil [place] PERRLA Right Movement/Strength +4 - Full ROM, Less Than Normal Strength. Left Movement/Strength +3 - Can Raise Extremity but Not Against Resistance. Right Finger to Nose Test Minimal Impairment Heel to Dobson Test Moderate Impairment Left Finger to Nose Test Minimal Impairment Heel to Dobson Test Severe Impairment Document 08/07/22 00:00 MI (Rec: 08/07/22 02:26 MI [id number]) Neuro Checks Eye Opening Spontaneous Verbal Response Confused Motor Response Obey Commands [place] Coma Scale Total 14 Patient Orientation Person,Place Facial Symmetry Symmetrical Speech Pattern Appropriate,Clear Right Movement/Strength +4 - Full ROM, Less Than Normal Strength. Left Movement/Strength +4 - Full ROM, Less Than Normal Strength. Bilateral Pupil Reaction Brisk Pupil [place] PERRLA Bilateral Finger to Nose Test Normal Performance Post tPA Neuro Assessment Temperature (97.6 F-99.6 F) 97.7 F Pulse Rate (60-100) 82 Blood Pressure 163/70 Respiratory Rate (12-18) 15 Eye Opening Spontaneous Verbal Response Confused Motor Response Obey Commands Patient orientation (short list) Person,Place Facial Symmetry Symmetrical Speech Pattern Appropriate,Clear Pupil Reaction Brisk Pupil [place] PERRLA Right Movement/Strength +4 - Full ROM, Less Than Normal Strength. Left Movement/Strength +4 - Full ROM, Less Than Normal Strength. Right Finger to Nose Test Minimal Impairment Heel to Dobson Test Moderate Impairment Left Finger to Nose Test Minimal Impairment Heel to Dobson Test Severe Impairment Document 08/07/22 04:00 MI (Rec: 08/07/22 04:30 MI [id number]) Neuro Checks Eye Opening Spontaneous Verbal Response Orientated Motor Response Obey Commands [place] Coma Scale Total 15 Patient Orientation Person,Place,Situation Facial Symmetry Symmetrical Ocular Movements Full Range Speech Pattern Appropriate,Clear Right Movement/Strength +4 - Full ROM, Less Than Normal Strength. Left Movement/Strength +4 - Full ROM, Less Than Normal Strength. Bilateral Pupil Reaction Brisk Bilateral Finger to Nose Test Normal Performance Post tPA Neuro Assessment Pulse Rate (60-100) 80 Blood Pressure 119/70 Respiratory Rate (12-18) 16 Eye Opening Spontaneous Verbal Response Orientated Motor Response Obey Commands Patient orientation (short list) Person,Place,Situation Facial Symmetry Symmetrical Ocular Movements Full Range Speech Pattern Appropriate,Clear Pupil Reaction Brisk Pupil [place] PERRLA Right Movement/Strength +4 - Full ROM, Less Than Normal Strength. Left Movement/Strength +4 - Full ROM, Less Than Normal Strength. Right Finger to Nose Test Minimal Impairment Heel to Dobson Test Moderate Impairment Left Finger to Nose Test Minimal Impairment Heel to Dobson Test Severe Impairment Document 08/07/22 08:00 LB (Rec: 08/07/22 11:37 LB [id number]) Neuro Checks Eye Opening Spontaneous Verbal Response Orientated Motor Response Obey Commands [place] Coma Scale Total 15 Patient Orientation Person,Place Facial Symmetry Symmetrical Ocular Movements Full Range Speech Pattern Appropriate,Clear Right Movement/Strength +4 - Full ROM, Less Than Normal Strength. Left Movement/Strength +4 - Full ROM, Less Than Normal Strength. Bilateral Pupil Reaction Brisk Document 08/07/22 12:00 LB (Rec: 08/07/22 14:54 LB [id number]) Neuro Checks Eye Opening Spontaneous Verbal Response Orientated Motor Response Obey Commands [place] Coma Scale Total 15 Patient Orientation Person,Place Facial Symmetry Symmetrical Ocular Movements Full Range Speech Pattern Appropriate,Clear Right Movement/Strength +4 - Full ROM, Less Than Normal Strength. Left Movement/Strength +4 - Full ROM, Less Than Normal Strength. Bilateral Pupil Reaction Brisk Document 08/07/22 16:00 LB (Rec: 08/07/22 19:46 LB [id number]) Neuro Checks Eye Opening Spontaneous Verbal Response Orientated Motor Response Obey Commands [place] Coma Scale Total 15 Patient Orientation Person,Place Facial Symmetry Symmetrical Ocular Movements Full Range Speech Pattern Appropriate,Clear Right Movement/Strength +4 - Full ROM, Less Than Normal Strength. Left Movement/Strength +4 - Full ROM, Less Than Normal Strength. Document 08/07/22 20:00 AC (Rec: 08/07/22 23:53 AC [id number]) Neuro Checks Eye Opening Spontaneous Verbal Response Orientated Motor Response Obey Commands [place] Coma Scale Total 15 Patient Orientation Person,Place Right Movement/Strength +4 - Full ROM, Less Than Normal Strength. Left Movement/Strength +4 - Full ROM, Less Than Normal Strength. Bilateral Pupil Reaction Brisk Bilateral Finger to Nose Test Normal Performance Post tPA Neuro Assessment Eye Opening Spontaneous Verbal Response Orientated Motor Response Obey Commands Patient orientation (short list) Person,Place Pupil Reaction Brisk Pupil [place] PERRLA Right Movement/Strength +4 - Full ROM, Less Than Normal Strength. Left Movement/Strength +4 - Full ROM, Less Than Normal Strength. Right Finger to Nose Test Minimal Impairment Heel to Dobson Test Moderate Impairment Left Finger to Nose Test Minimal Impairment Heel to Dobson Test Severe Impairment Document 08/07/22 23:54 AC (Rec: 08/07/22 23:55 AC [id number]) Neuro Checks Eye Opening Spontaneous Verbal Response Orientated Motor Response Obey Commands [place] Coma Scale Total 15 Patient Orientation Person,Place Right Movement/Strength +4 - Full ROM, Less Than Normal Strength. Left Movement/Strength +4 - Full ROM, Less Than Normal Strength. Bilateral Pupil Reaction Brisk Bilateral Finger to Nose Test Normal Performance Post tPA Neuro Assessment Eye Opening Spontaneous Verbal Response Orientated Motor Response Obey Commands Patient orientation (short list) Person,Place Pupil Reaction Brisk Pupil [place] PERRLA Right Movement/Strength +4 - Full ROM, Less Than Normal Strength. Left Movement/Strength +4 - Full ROM, Less Than Normal Strength. Right Finger to Nose Test Minimal Impairment Heel to Dobson Test Moderate Impairment Left Finger to Nose Test Minimal Impairment Heel to Dobson Test Severe Impairment Document 08/08/22 04:00 AC (Rec: 08/08/22 06:14 AC [id number]) Neuro Checks Eye Opening Spontaneous Verbal Response Orientated Motor Response Obey Commands [place] Coma Scale Total 15 Patient Orientation Person,Place Right Movement/Strength +4 - Full ROM, Less Than Normal Strength. Left Movement/Strength +4 - Full ROM, Less Than Normal Strength. Bilateral Pupil Reaction Brisk Bilateral Finger to Nose Test Normal Performance Post tPA Neuro Assessment Eye Opening Spontaneous Verbal Response Orientated Motor Response Obey Commands Patient orientation (short list) Person,Place Pupil Reaction Brisk Pupil [place] PERRLA Right Movement/Strength +4 - Full ROM, Less Than Normal Strength. Left Movement/Strength +4 - Full ROM, Less Than Normal Strength. Right Finger to Nose Test Minimal Impairment Heel to Dobson Test Moderate Impairment Left Finger to Nose Test Minimal Impairment Heel to Dobson Test Severe Impairment Document 08/08/22 08:00 LB (Rec: 08/08/22 12:01 LB [id number]) Neuro Checks Eye Opening Spontaneous Verbal Response Confused Motor Response Obey Commands [place] Coma Scale Total 14 Patient Orientation Person,Place Facial Symmetry Symmetrical Ocular Movements Full Range Speech Pattern Appropriate,Clear Right Movement/Strength +4 - Full ROM, Less Than Normal Strength. Left Movement/Strength +4 - Full ROM, Less Than Normal Strength. Document 08/08/22 12:00 LB (Rec: 08/08/22 19:49 LB [id number]) Neuro Checks Eye Opening Spontaneous Verbal Response Orientated Motor Response Obey Commands [place] Coma Scale Total 15 Patient Orientation Person,Place,Situation Facial Symmetry Symmetrical Ocular Movements Full Range Speech Pattern Appropriate,Clear Right Movement/Strength +4 - Full ROM, Less Than Normal Strength. Left Movement/Strength +4 - Full ROM, Less Than Normal Strength. Bilateral Pupil Reaction Brisk Document 08/08/22 16:00 LB (Rec: 08/08/22 19:49 LB [id number]) Neuro Checks Eye Opening Spontaneous Verbal Response Orientated Motor Response Obey Commands [place] Coma Scale Total 15 Patient Orientation Person,Place,Situation Facial Symmetry Symmetrical Ocular Movements Full Range Speech Pattern Appropriate,Clear Right Movement/Strength +4 - Full ROM, Less Than Normal Strength. Left Movement/Strength +4 - Full ROM, Less Than Normal Strength. Document 08/08/22 20:00 AC (Rec: 08/08/22 21:43 AC [id number]) Neuro Checks Eye Opening Spontaneous Verbal Response Orientated Motor Response Obey Commands [place] Coma Scale Total 15 Patient Orientation Person,Place,Situation Facial Symmetry Symmetrical Ocular Movements Full Range Speech Pattern Appropriate,Clear Right Movement/Strength +4 - Full ROM, Less Than Normal Strength. Left Movement/Strength +4 - Full ROM, Less Than Normal Strength. Bilateral Pupil Reaction Brisk Bilateral Finger to Nose Test Normal Performance Post tPA Neuro Assessment Eye Opening Spontaneous Verbal Response Orientated Motor Response Obey Commands Patient orientation (short list) Person,Place,Situation Facial Symmetry Symmetrical Ocular Movements Full Range Speech Pattern Appropriate,Clear Pupil Reaction Brisk Pupil [place] PERRLA Right Movement/Strength +4 - Full ROM, Less Than Normal Strength. Left Movement/Strength +4 - Full ROM, Less Than Normal Strength. Right Finger to Nose Test Minimal Impairment Heel to Dobson Test Moderate Impairment Left Finger to Nose Test Minimal Impairment Heel to Dobson Test Severe Impairment Document 08/09/22 00:00 AC (Rec: 08/09/22 01:17 AC [id number]) Neuro Checks Eye Opening Spontaneous Verbal Response Orientated Motor Response Obey Commands [place] Coma Scale Total 15 Patient Orientation Person,Place,Situation Facial Symmetry Symmetrical Ocular Movements Full Range Speech Pattern Appropriate,Clear Right Movement/Strength +4 - Full ROM, Less Than Normal Strength. Left Movement/Strength +4 - Full ROM, Less Than Normal Strength. Bilateral Pupil Reaction Brisk Bilateral Finger to Nose Test Normal Performance Post tPA Neuro Assessment Eye Opening Spontaneous Verbal Response Orientated Motor Response Obey Commands Patient orientation (short list) Person,Place,Situation Facial Symmetry Symmetrical Ocular Movements Full Range Speech Pattern Appropriate,Clear Pupil Reaction Brisk Pupil [place] PERRLA Right Movement/Strength +4 - Full ROM, Less Than Normal Strength. Left Movement/Strength +4 - Full ROM, Less Than Normal Strength. Right Finger to Nose Test Minimal Impairment Heel to Dobson Test Moderate Impairment Left Finger to Nose Test Minimal Impairment Heel to Dobson Test Severe Impairment Document 08/09/22 04:00 AC (Rec: 08/09/22 06:09 AC [id number]) Neuro Checks Eye Opening Spontaneous Verbal Response Orientated Motor Response Obey Commands [place] Coma Scale Total 15 Patient Orientation Person,Place,Situation Facial Symmetry Symmetrical Ocular Movements Full Range Speech Pattern Appropriate,Clear Right Movement/Strength +4 - Full ROM, Less Than Normal Strength. Left Movement/Strength +4 - Full ROM, Less Than Normal Strength. Bilateral Pupil Reaction Brisk Bilateral Finger to Nose Test Normal Performance Post tPA Neuro Assessment Eye Opening Spontaneous Verbal Response Orientated Motor Response Obey Commands Patient orientation (short list) Person,Place,Situation Facial Symmetry Symmetrical Ocular Movements Full Range Speech Pattern Appropriate,Clear Pupil Reaction Brisk Pupil [place] PERRLA Right Movement/Strength +4 - Full ROM, Less Than Normal Strength. Left Movement/Strength +4 - Full ROM, Less Than Normal Strength. 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 Document 08/09/22 12:00 SK (Rec: 08/09/22 12:43 SK [id number]) Neuro Checks Eye Opening Spontaneous Verbal Response Orientated Motor Response Obey Commands [place] Coma Scale Total 15 Patient Orientation Person Facial Symmetry Symmetrical Speech Pattern Clear [employer] Technical Rec[employer]iter Equal Document 08/09/22 16:00 SK (Rec: 08/09/22 19:15 SK [id number]) Neuro Checks Eye Opening Spontaneous Verbal Response Orientated Motor Response Obey Commands [place] Coma Scale Total 15 Patient Orientation Person Facial Symmetry Symmetrical Speech Pattern Clear [employer] Rec[employer]iter Equal Document 08/09/22 19:59 (Rec: 08/09/22 20:05 [id number]) Neuro Checks Eye Opening Spontaneous Verbal Response Orientated Motor Response Obey Commands [place] Coma Scale Total 15 Patient Orientation Person Facial Symmetry Symmetrical Speech Pattern Clear [employer] Technical Rec[employer]iter Equal Right Movement/Strength +4 - Full ROM, Less Than Normal Strength. Left Movement/Strength +4 - Full ROM, Less Than Normal Strength. Bilateral Pupil Reaction Brisk Bilateral Finger to Nose Test Normal Performance Post tPA Neuro Assessment Temperature (97.6 F-99.6 F) 98.0 F Pulse Rate (60-100) 63 Blood Pressure 101/57 Respiratory Rate (12-18) 17 Eye Opening Spontaneous Verbal Response Orientated Motor Response Obey Commands Patient orientation (short list) Person Facial Symmetry Symmetrical Speech Pattern Clear [employer] Rec[employer]iter Equal Pupil Reaction Brisk Pupil [place] PERRLA Right Movement/Strength +4 - Full ROM, Less Than Normal Strength. Left Movement/Strength +4 - Full ROM, Less Than Normal Strength. Right Finger to Nose Test Minimal Impairment Heel to Dobson Test Moderate Impairment Left Finger to Nose Test Minimal Impairment Heel to Dobson Test Severe Impairment Document 08/10/22 00:00 (Rec: 08/10/22 00:28 [id number]) Neuro Checks Eye Opening Spontaneous Verbal Response Orientated Motor Response Obey Commands [place] Coma Scale Total 15 Patient Orientation Person Facial Symmetry Symmetrical Speech Pattern Clear [employer] Rec[employer]iter Equal Right Movement/Strength +4 - Full ROM, Less Than Normal Strength. Left Movement/Strength +4 - Full ROM, Less Than Normal Strength. Bilateral Pupil Reaction Brisk Bilateral Finger to Nose Test Normal Performance Post tPA Neuro Assessment Eye Opening Spontaneous Verbal Response Orientated Motor Response Obey Commands Patient orientation (short list) Person Facial Symmetry Symmetrical Speech Pattern Clear [employer] Rec[employer]iter Equal Pupil Reaction Brisk Pupil [place] PERRLA Right Movement/Strength +4 - Full ROM, Less Than Normal Strength. Left Movement/Strength +4 - Full ROM, Less Than Normal Strength. Right Finger to Nose Test Minimal Impairment Heel to Dobson Test Moderate Impairment Left Finger to Nose Test Minimal Impairment Heel to Dobson Test Severe Impairment Document 08/10/22 04:00 (Rec: 08/10/22 04:13 [id number]) Neuro Checks Eye Opening Spontaneous Verbal Response Orientated Motor Response Obey Commands [place] Coma Scale Total 15 Patient Orientation Person Facial Symmetry Symmetrical Speech Pattern Clear [employer] Rec[employer]iter Equal Right Movement/Strength +4 - Full ROM, Less Than Normal Strength. Left Movement/Strength +4 - Full ROM, Less Than Normal Strength. Bilateral Pupil Reaction Brisk Bilateral Finger to Nose Test Normal Performance Post tPA Neuro Assessment Eye Opening Spontaneous Verbal Response Orientated Motor Response Obey Commands Patient orientation (short list) Person Facial Symmetry Symmetrical Speech Pattern Clear [employer] Rec[employer]iter Equal Pupil Reaction Brisk Pupil [place] PERRLA Right Movement/Strength +4 - Full ROM, Less Than Normal Strength. Left Movement/Strength +4 - Full ROM, Less Than Normal Strength. Right Finger to Nose Test Minimal Impairment Heel to Dobson Test Moderate Impairment Left Finger to Nose Test Minimal Impairment Heel to Dobson Test Severe Impairment Document 08/10/22 08:00 [facility] (Rec: 08/10/22 16:33 [facility] [id number]) Neuro Checks Eye Opening Spontaneous Verbal Response Orientated Motor Response Obey Commands [place] Coma Scale Total 15 Patient Orientation Person Facial Symmetry Symmetrical Speech Pattern Clear [employer] Rec[employer]iter Equal Right Movement/Strength +4 - Full ROM, Less Than Normal Strength. Left Movement/Strength +4 - Full ROM, Less Than Normal Strength. Bilateral Pupil Reaction Brisk Bilateral Finger to Nose Test Normal Performance Document 08/10/22 12:00 [facility] (Rec: 08/10/22 16:35 [facility] [id number]) Neuro Checks Eye Opening Spontaneous Verbal Response Orientated Motor Response Obey Commands [place] Coma Scale Total 15 Patient Orientation Person Facial Symmetry Symmetrical Speech Pattern Clear [employer] Rec[employer]iter Equal Right Movement/Strength +4 - Full ROM, Less Than Normal Strength. Left Movement/Strength +4 - Full ROM, Less Than Normal Strength. Bilateral Pupil Reaction Brisk Bilateral Finger to Nose Test Normal Performance Post tPA Neuro Assessment Right Movement/Strength +4 - Full ROM, Less Than Normal Strength. Left Movement/Strength +4 - Full ROM, Less Than Normal Strength. Right Finger to Nose Test Minimal Impairment Heel to Dobson Test Moderate Impairment Left Finger to Nose Test Minimal Impairment Heel to Dobson Test Severe Impairment Document 08/10/22 16:00 [facility] (Rec: 08/10/22 16:35 [facility] [id number]) Neuro Checks Eye Opening Spontaneous Verbal Response Orientated Motor Response Obey Commands [place] Coma Scale Total 15 Patient Orientation Person Facial Symmetry Symmetrical Speech Pattern Clear [employer] Rec[employer]iter Equal Right Movement/Strength +4 - Full ROM, Less Than Normal Strength. Left Movement/Strength +4 - Full ROM, Less Than Normal Strength. Bilateral Pupil Reaction Brisk Bilateral Finger to Nose Test Normal Performance Document 08/10/22 20:00 EM (Rec: 08/10/22 20:56 EM [id number]) Neuro Checks Eye Opening Spontaneous Verbal Response Orientated Motor Response Obey Commands [place] Coma Scale Total 15 Patient Orientation Person Facial Symmetry Symmetrical Speech Pattern Clear [employer] Rec[employer]iter Equal Right Movement/Strength +4 - Full ROM, Less Than Normal Strength. Left Movement/Strength +4 - Full ROM, Less Than Normal Strength. Bilateral Pupil Reaction Brisk Bilateral Finger to Nose Test Normal Performance Heel to Dobson Test Minimal Impairment Document 08/11/22 00:00 EM (Rec: 08/11/22 03:17 EM [id number]) Neuro Checks Eye Opening Spontaneous Verbal Response Orientated Motor Response Obey Commands [place] Coma Scale Total 15 Patient Orientation Person,Place,Time,Situation Facial Symmetry Symmetrical Speech Pattern Clear [employer] Rec[employer]iter Equal Right Movement/Strength +4 - Full ROM, Less Than Normal Strength. Left Movement/Strength +4 - Full ROM, Less Than Normal Strength. Bilateral Pupil Reaction Brisk Bilateral Finger to Nose Test Normal Performance Heel to Dobson Test Minimal Impairment Document 08/11/22 04:00 EM (Rec: 08/11/22 05:35 EM [id number]) Neuro Checks Eye Opening Spontaneous Verbal Response Orientated Motor Response Obey Commands [place] Com[place] Scale Total 15 Patient Orientation Person,Place,Time,Situation Facial Symmetry Symmetrical Speech Pattern Clear [employer] Rec[employer]iter Equal Right Movement/Strength +4 - Full ROM, Less Than Normal Strength. Left Movement/Strength +4 - Full ROM, Less Than Normal Strength. Bilateral Pupil Reaction Brisk Bilateral Finger to Nose Test Normal Performance Heel to Dobson Test Minimal Impairment Post tPA Neuro Assessment Right Finger to Nose Test Minimal Impairment Heel to Dobson Test Moderate Impairment Left Finger to Nose Test Minimal Impairment Heel to Dobson Test Severe Impairment Document 08/11/22 08:00 [id number] (Rec: 08/11/22 16:49 [id number]) Neuro Checks Eye Opening Spontaneous Verbal Response Orientated Motor Response Obey Commands [place] Coma Scale Total 15 Patient Orientation Person,Place,Time,Situation Facial Symmetry Symmetrical Speech Pattern Clear [employer] Rec[employer]iter Equal Right Movement/Strength +4 - Full ROM, Less Than Normal Strength. Left Movement/Strength +4 - Full ROM, Less Than Normal Strength. Bilateral Pupil Reaction Brisk Bilateral Finger to Nose Test Normal Performance Heel to Dobson Test Minimal Impairment Document 08/11/22 12:00 [id number] (Rec: 08/11/22 16:51 [id number]) Neuro Checks Eye Opening Spontaneous Verbal Response Orientated Motor Response Obey Commands [place] Coma Scale Total 15 Patient Orientation Person,Place,Time,Situation Facial Symmetry Symmetrical Speech Pattern Clear [employer] Rec[employer]iter Equal Right Movement/Strength +4 - Full ROM, Less Than Normal Strength. Left Movement/Strength +4 - Full ROM, Less Than Normal Strength. 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 Left Movement/Strength +4 - Full ROM, Less Than Normal Strength. Right Finger to Nose Test Minimal Impairment Heel to Dobson Test Moderate Impairment Left Finger to Nose Test Minimal Impairment Heel to Dobson Test Severe Impairment Document 08/11/22 16:00 [id number] (Rec: 08/11/22 16:52 [email or web address] [id number]) Neuro Checks Eye Opening Spontaneous Verbal Response Orientated Motor Response Obey Commands [place] Coma Scale Total 15 Patient Orientation Person,Place,Time,Situation Facial Symmetry Symmetrical Speech Pattern Clear [employer] Rec[employer]iter Equal Right Movement/Strength +4 - Full ROM, Less Than Normal Strength. Left Movement/Strength +4 - Full ROM, Less Than Normal Strength. 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 Left Movement/Strength +4 - Full ROM, Less Than Normal Strength. Right Finger to Nose Test Minimal Impairment Heel to Dobson Test Moderate Impairment Left Finger to Nose Test Minimal Impairment Heel to Dobson Test Severe Impairment Document 08/11/22 20:00 FM (Rec: 08/11/22 22:29 FM [id number]) Neuro Checks Eye Opening Spontaneous Verbal Response Orientated Motor Response Obey Commands Pavel Coma Scale Total 15 Patient Orientation Person,Place,Time,Situation Facial Symmetry Symmetrical Speech Pattern Clear Corporate Technical Recruiter Equal Right Movement/Strength +4 - Full ROM, Less Than Normal Strength. Left Movement/Strength +4 - Full ROM, Less Than Normal Strength. Bilateral Pupil Reaction Brisk Bilateral Finger to Nose Test Normal Performance Heel to Dobson Test Minimal Impairment Post tPA Neuro Assessment Respiratory Rate (12-18) 16 Eye Opening Spontaneous Verbal Response Orientated Motor Response Obey Commands Patient orientation (short list) Person,Place,Time,Situation Facial Symmetry Symmetrical Speech Pattern Clear Corporate Technical Recruiter Equal Pupil Reaction Brisk Pupil [place] PERRLA Right Movement/Strength +4 - Full ROM, Less Than Normal Strength. Left Movement/Strength +4 - Full ROM, Less Than Normal Strength. Right Finger to Nose Test Minimal Impairment Heel to Dobson Test Moderate Impairment Left Finger to Nose Test Minimal Impairment Heel to Dobson Test Severe Impairment Document 08/11/22 23:11 FM (Rec: 08/11/22 23:12 FM [id number]) Neuro Checks Eye Opening Spontaneous Verbal Response Orientated Motor Response Obey Commands [place] Coma Scale Total 15 Patient Orientation Person,Place,Time,Situation Facial Symmetry Symmetrical Speech Pattern Clear Corporate Technical Recruiter Equal Right Movement/Strength +4 - Full ROM, Less Than Normal Strength. Left Movement/Strength +4 - Full ROM, Less Than Normal Strength. Bilateral Pupil Reaction Brisk Bilateral Finger to Nose Test Normal Performance Heel to Dobson Test Minimal Impairment Post tPA Neuro Assessment Respiratory Rate (12-18) 16 Eye Opening Spontaneous Verbal Response Orientated Motor Response Obey Commands Patient orientation (short list) Person,Place,Time,Situation Facial Symmetry Symmetrical Speech Pattern Clear Corporate Technical Recruiter Equal Pupil Reaction Brisk Pupil [place] PERRLA Right Movement/Strength +4 - Full ROM, Less Than Normal Strength. Left Movement/Strength +4 - Full ROM, Less Than Normal Strength. Right Finger to Nose Test Minimal Impairment Heel to Dobson Test Moderate Impairment Left Finger to Nose Test Minimal Impairment Heel to Dobson Test Severe Impairment Document 08/12/22 03:08 FM (Rec: 08/12/22 03:08 FM [id number]) Neuro Checks Eye Opening Spontaneous Verbal Response Confused Motor Response Obey Commands [place] Coma Scale Total 14 Patient Orientation Person,Place,Time,Situation Facial Symmetry Symmetrical Speech Pattern Clear Corporate Technical Recruiter Equal Right Movement/Strength +4 - Full ROM, Less Than Normal Strength. Left Movement/Strength +4 - Full ROM, Less Than Normal Strength. Bilateral Pupil Reaction Brisk Bilateral Finger to Nose Test Normal Performance Heel to Dobson Test Minimal Impairment Post tPA Neuro Assessment Temperature (97.6 F-99.6 F) 97.7 F Pulse Rate (60-100) 67 Blood Pressure 162/71 Respiratory Rate (12-18) 18 Eye Opening Spontaneous Verbal Response Orientated Motor Response Obey Commands Patient orientation (short list) Person,Place,Time,Situation Facial Symmetry Symmetrical Speech Pattern Clear Corporate Technical Recruiter Equal Pupil Reaction Brisk Pupil [place] PERRLA Right Movement/Strength +4 - Full ROM, Less Than Normal Strength. Left Movement/Strength +4 - Full ROM, Less Than Normal Strength. Right Finger to Nose Test Minimal Impairment Heel to Dobson Test Moderate Impairment Left Finger to Nose Test Minimal Impairment Heel to Dobson Test Severe Impairment Document 08/12/22 08:00 [email or web address] (Rec: 08/12/22 16:24 [facility] [email or web address] [id number]) Neuro Checks Eye Opening Spontaneous Verbal Response Orientated Motor Response Obey Commands Pavel Coma Scale Total 15 Patient Orientation Person,Place,Time,Situation Facial Symmetry Symmetrical Speech Pattern Clear Corporate Technical Recruiter Equal Right Movement/Strength +4 - Full ROM, Less Than Normal Strength. Left Movement/Strength +4 - Full ROM, Less Than Normal Strength. Bilateral Pupil Reaction Brisk Bilateral Finger to Nose Test Normal Performance Heel to Dobson Test Minimal Impairment Post tPA Neuro Assessment Right Movement/Strength +4 - Full ROM, Less Than Normal Strength. Left Movement/Strength +4 - Full ROM, Less Than Normal Strength. Right Finger to Nose Test Minimal Impairment Heel to Dobson Test Moderate Impairment Left Finger to Nose Test Minimal Impairment Heel to Dobson Test Severe Impairment Document 08/12/22 12:00 [email or web address] (Rec: 08/12/22 16:26 [email or web address] [id number]) Neuro Checks Eye Opening Spontaneous Verbal Response Orientated Motor Response Obey Commands [place] Coma Scale Total 15 Patient Orientation Person,Place,Time,Situation Facial Symmetry Symmetrical Speech Pattern Clear Corporate Technical Recruiter Equal Right Movement/Strength +4 - Full ROM, Less Than Normal Strength. Left Movement/Strength +4 - Full ROM, Less Than Normal Strength. Bilateral Pupil Reaction Brisk Bilateral Finger to Nose Test Normal Performance Heel to Dobson Test Minimal Impairment Post tPA Neuro Assessment Left Movement/Strength +4 - Full ROM, Less Than Normal Strength. Document 08/12/22 16:00 [email or web address] (Rec: 08/12/22 17:20 [email or web address] [id number]) Neuro Checks Eye Opening Spontaneous Verbal Response Orientated Motor Response Obey Commands [place] Coma Scale Total 15 Patient Orientation Person,Place,Time,Situation Facial Symmetry Symmetrical Speech Pattern Clear Corporate Technical Recruiter Equal Right Movement/Strength +4 - Full ROM, Less Than Normal Strength. Left Movement/Strength +4 - Full ROM, Less Than Normal Strength. Bilateral Pupil Reaction Brisk Bilateral Finger to Nose Test Normal Performance Heel to Dobson Test Minimal Impairment Post tPA Neuro Assessment Pulse Rate (60-100) 68 Blood Pressure 154/78 Respiratory Rate (12-18) 18 Eye Opening Spontaneous Verbal Response Orientated Motor Response Obey Commands Patient orientation (short list) Person,Place,Time,Situation Facial Symmetry Symmetrical Speech Pattern Clear Corporate Technical Recruiter Equal Pupil Reaction Brisk Pupil [place] PERRLA Right Movement/Strength +4 - Full ROM, Less Than Normal Strength. Left Movement/Strength +4 - Full ROM, Less Than Normal Strength. Right Finger to Nose Test Minimal Impairment Heel to Dobson Test Moderate Impairment Left Finger to Nose Test Minimal Impairment Heel to Dobson Test Severe Impairment Document 08/12/22 20:00 FM (Rec: 08/12/22 21:52 FM [id number]) Neuro Checks Eye Opening Spontaneous Verbal Response Orientated Motor Response Obey Commands [place] Coma Scale Total 15 Patient Orientation Person,Place,Time,Situation Facial Symmetry Symmetrical Speech Pattern Clear Corporate Technical Recruiter Equal Right Movement/Strength +4 - Full ROM, Less Than Normal Strength. Left Movement/Strength +4 - Full ROM, Less Than Normal Strength. Bilateral Pupil Reaction Brisk Bilateral Finger to Nose Test Normal Performance Heel to Dobson Test Minimal Impairment Post tPA Neuro Assessment Temperature (97.6 F-99.6 F) 98.2 F Pulse Rate (60-100) 70 Blood Pressure 163/74 Respiratory Rate (12-18) 17 Eye Opening Spontaneous Verbal Response Orientated Motor Response Obey Commands Patient orientation (short list) Person,Place,Time,Situation Facial Symmetry Symmetrical Speech Pattern Clear Corporate Technical Recruiter Equal Pupil Reaction Brisk Pupil [place] PERRLA Right Movement/Strength +4 - Full ROM, Less Than Normal Strength. Left Movement/Strength +4 - Full ROM, Less Than Normal Strength. Right Finger to Nose Test Minimal Impairment Heel to Dobson Test Moderate Impairment Left Finger to Nose Test Minimal Impairment Heel to Dobson Test Severe Impairment Document 08/12/22 23:50 FM (Rec: 08/12/22 23:51 FM [id number]) Neuro Checks Eye Opening Spontaneous Verbal Response Orientated Motor Response Obey Commands [place] Coma Scale Total 15 Patient Orientation Person,Place,Time,Situation Facial Symmetry Symmetrical Speech Pattern Clear Corporate Technical Recruiter Equal Right Movement/Strength +4 - Full ROM, Less Than Normal Strength. Left Movement/Strength +4 - Full ROM, Less Than Normal Strength. Bilateral Pupil Reaction Brisk Bilateral Finger to Nose Test Normal Performance Heel to Dobson Test Minimal Impairment Post tPA Neuro Assessment Temperature (97.6 F-99.6 F) 98.2 F Pulse Rate (60-100) 70 Blood Pressure 163/74 Respiratory Rate (12-18) 17 Eye Opening Spontaneous Verbal Response Orientated Motor Response Obey Commands Patient orientation (short list) Person,Place,Time,Situation Facial Symmetry Symmetrical Speech Pattern Clear Corporate Technical Recruiter Equal Pupil Reaction Brisk Pupil [place] PERRLA Right Movement/Strength +4 - Full ROM, Less Than Normal Strength. Left Movement/Strength +4 - Full ROM, Less Than Normal Strength. Right Finger to Nose Test Minimal Impairment Heel to Dobson Test Moderate Impairment Left Finger to Nose Test Minimal Impairment Heel to Dobson Test Severe Impairment Document 08/13/22 03:37 FM (Rec: 08/13/22 03:37 FM [id number]) Neuro Checks Eye Opening Spontaneous Verbal Response Orientated Motor Response Obey Commands [place] Coma Scale Total 15 Patient Orientation Person,Place,Time,Situation Facial Symmetry Symmetrical Speech Pattern Clear Corporate Technical Recruiter Equal Right Movement/Strength +4 - Full ROM, Less Than Normal Strength. Left Movement/Strength +4 - Full ROM, Less Than Normal Strength. Bilateral Pupil Reaction Brisk Bilateral Finger to Nose Test Normal Performance Heel to Dobson Test Minimal Impairment Post tPA Neuro Assessment Temperature (97.6 F-99.6 F) 98.3 F Pulse Rate (60-100) 68 Blood Pressure 137/67 Respiratory Rate (12-18) 16 Eye Opening Spontaneous Verbal Response Orientated Motor Response Obey Commands Patient orientation (short list) Person,Place,Time,Situation Facial Symmetry Symmetrical Speech Pattern Clear Corporate Technical Recruiter Equal Pupil Reaction Brisk Pupil [place] PERRLA Right Movement/Strength +4 - Full ROM, Less Than Normal Strength. Left Movement/Strength +4 - Full ROM, Less Than Normal Strength. Right Finger to Nose Test Minimal Impairment Heel to Dobson Test Moderate Impairment Left Finger to Nose Test Minimal Impairment Heel to Dobson Test Severe Impairment Document 02/28/23 07:48 KN (Rec: 08/13/22 07:49 KN [id number]) Neuro Checks Eye Opening Spontaneous Verbal Response Orientated Motor Response Obey Commands [place] Coma Scale Total 15 Patient Orientation Person,Place,Time,Situation Facial Symmetry Symmetrical Speech Pattern Clear Corporate Technical Recruiter Equal Right Movement/Strength +4 - Full ROM, Less Than Normal Strength. Left Movement/Strength +4 - Full ROM, Less Than Normal Strength. Bedside Report Start: 08/04/22 15:41 Freq: 0700,1900 Status: Active Protocol: Document 08/04/22 19:00 CB (Rec: 08/04/22 19:12 CB [id number]) Co-signed By Abbey Desir RN Bedside Report Communication Type Shift Handoff Report Given To Abbey Patient Identification Band On Yes Patient Allergy Band On Yes Information Reported Status Update,Lab/Diagnostic Study,Pain,Patient Request, Problem,Activity,Diet,Intake & Output,Medications Given, Physical Assessment,Cardiac Monitoring Document 08/05/22 07:00 SC (Rec: 08/05/22 07:03 SC [id number]) Co-signed By Nain Merlos RN Bedside Report Communication Type Shift Handoff Report Given To caitlyn [place] Patient Identification Band On Yes Patient Allergy Band On Yes Information Reported Status Update,Pain,Problem, Activity,Diet,Surgical Incision Document 08/05/22 19:00 (Rec: 08/05/22 19:06 [id number]) Co-signed By Abbey Desir RN Bedside Report Communication Type Shift Handoff Report Given To Abbey Patient Identification Band On Yes Patient Allergy Band On Yes Document 08/06/22 07:00 (Rec: 08/06/22 12:10 [id number]) Co-signed By Abbey Desir RN Bedside Report Communication Type Shift Handoff Report Given To Nain Patient Identification Band On Yes Patient Allergy Band On Yes Information Reported Status Update Document 08/06/22 19:00 (Rec: 08/06/22 19:16 [id number]) Co-signed By Abbey Desir RN Bedside Report Communication Type Shift Handoff Report Given To Abbey Patient Identification Band On Yes Patient Allergy Band On Yes Information Reported Status Update Document 08/07/22 19:00 LB (Rec: 08/07/22 19:48 LB [id number]) Co-signed By Dominique Shi LPN Bedside Report Communication Type Shift Handoff Report Given To DOMINIQUE Patient Identification Band On No: PT REFUSES TO WEAR Patient Allergy Band On No: PT REFUSES TO WEAR Information Reported Status Update,Problem,Activity ,Diet,Intake & Output,Physical Assessment,Surgical Incision Document 08/08/22 07:00 AC (Rec: 08/08/22 07:04 AC [id number]) Co-signed By Elena Fernandez RN Bedside Report Communication Type Shift Handoff Report Given To betsy Patient Identification Band On Yes Patient Allergy Band On Yes Information Reported Status Update,Patient Request, Problem,Activity,Diet,Hygiene, Intake & Output,Medications Given,Physical Assessment Patient Participation Had No Questions Document 08/08/22 19:00 LB (Rec: 08/08/22 19:50 LB [id number]) Co-signed By Dominique Sih LPN Bedside Report Communication Type Shift Handoff Report Given To ODMINIQUE Patient Identification Band On Yes Patient Allergy Band On Yes Information Reported Pain,Activity,Diet,Tubes/ Drains Document 08/09/22 07:00 AC (Rec: 08/09/22 07:15 AC [id number]) Co-signed By Mey Crandall RN Bedside Report Communication Type Shift Handoff Report Given To justin Patient Identification Band On Yes Patient Allergy Band On Yes Information Reported Status Update,Lab/Diagnostic Study,Pain,Patient Request, Problem,Activity,Diet,Intake & Output,Medications Given, Vital Signs,Goal for Shift Patient Participation Had No Questions Document 08/09/22 19:00 SK (Rec: 08/09/22 19:16 SK [id number]) Co-signed By Dominique Shi LPN Bedside Report Communication Type Shift Handoff Patient Identification Band On Yes Patient Allergy Band On Yes Information Reported Status Update Document 08/10/22 07:00 AC (Rec: 08/10/22 07:08 AC [id number]) Co-signed By Claudia Oakley RN Bedside Report Communication Type Shift Handoff Report Given To claudia horn Patient Identification Band On Yes Patient Allergy Band On Yes Information Reported Status Update,Lab/Diagnostic Study,Patient Request,Problem, Activity,Diet,Hygiene,Intake & Output,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 Performed- Catheter/IV insertion, Ice Pack, etc., Medications Given,Physical Assessment,Vital Signs,Goal for Shift Patient Participation Had No Questions Document 08/10/22 19:00 [email or web address] (Rec: 08/10/22 19:19 [email or web address] [id number]) Co-signed By Marilyn Cheatham LPN Bedside Report Communication Type Shift Handoff Report Given To Marilyn Patient Identification Band On Yes Patient Allergy Band On Yes Document 08/11/22 07:00 EM (Rec: 08/11/22 07:05 EM [id number]) Co-signed By Claudia Oakley RN Bedside Report Communication Type Shift Handoff Report Given To claudia Patient Identification Band On Yes Patient Allergy Band On Yes Information Reported Status Update Document 08/12/22 07:00 FM (Rec: 08/12/22 07:03 FM [id number]) Co-signed By Claudia Oakley RN Bedside Report Communication Type Shift Handoff Report Given To claudia Patient Identification Band On Yes Patient Allergy Band On Yes Information Reported Status Update,Pain,Activity, Diet,Hygiene Toy Scale Assessment Start: 08/04/22 15:41 Freq: ONCE Status: Active Protocol: TOY Document 08/04/22 15:41 CB (Rec: 08/04/22 16:14 CB [id number]) Toy Scale - For Predicting Pressure Sore Risk Sensory Perception No Impairment Sensory Perception 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 Teach Changing Positions, Reposition Q2H,HOB </= 30 Degrees,Draw Sheet to Turn/ Lift Moisture Rarely Moist Moisture 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 Protective Ointment,Routine Skin Care PRN Activity Bedfast Activity Interactions Consider Higher Level Support Surfaces,Encourage Activity PRN,OT Consult,PT Consult Mobililty Very Limited Mobility 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 Draw Sheet Used to Turn and Lift,Heels Off Bed,HOB </= 30 Degrees,Teach Position Changes Nutrition Adequate Nutrition 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 Encourage Meals,Provide Tray Set Up Friction and Shear No Apparent Problem Friction and Shear Apply/Use Socks,Draw Sheet to Turn/Lift Total Score 17 Charge List Start: 08/04/22 15:41 Freq: 05,17 Status: Active Protocol: Document 08/04/22 17:00 CB (Rec: 08/04/22 18:34 CB [id number]) Charge List Any New Charges This Shift No Dialysis Treatment Received No Document 08/05/22 05:00 SC (Rec: 08/05/22 05:30 SC [id number]) Charge List Any New Charges This Shift No Document 08/05/22 17:00 (Rec: 08/05/22 19:09 [id number]) Charge List Any New Charges This Shift No Dialysis Treatment Received No Document 08/06/22 05:00 SC (Rec: 08/06/22 06:09 SC [id number]) Charge List Any New Charges This Shift No Document 08/06/22 17:00 (Rec: 08/06/22 17:55 [id number]) Charge List Any New Charges This Shift No Dialysis Treatment Received No Document 08/07/22 05:00 SC (Rec: 08/07/22 06:12 SC [id number]) Charge List Any New Charges This Shift No Document 08/07/22 17:00 LB (Rec: 08/07/22 19:47 LB [id number]) Charge List Any New Charges This Shift No Document 08/08/22 05:00 AC (Rec: 08/08/22 06:14 AC [id number]) Charge List Any New Charges This Shift No Document 08/08/22 17:00 LB (Rec: 08/08/22 19:49 LB [id number]) Charge List Any New Charges This Shift No Document 08/09/22 05:00 AC (Rec: 08/09/22 06:09 AC [id number]) Charge List Any New Charges This Shift No Document 08/09/22 17:00 SK (Rec: 08/09/22 19:15 SK [id number]) Charge List Any New Charges This Shift No Document 08/10/22 04:13 AC (Rec: 08/10/22 04:14 AC [id number]) Charge List Any New Charges This Shift No Document 08/10/22 16:36 [email or web address] (Rec: 08/10/22 16:36 MCGHA2 [id number]) Charge List Any New Charges This Shift No Document 08/11/22 05:00 EM (Rec: 08/11/22 05:35 EM [id number]) Charge List Any New Charges This Shift No Dialysis Treatment Received No Document 08/11/22 16:52 [email or web address] (Rec: 08/11/22 16:52 MCGHA2 [id number]) Charge List Any New Charges This Shift No Document 08/12/22 05:00 FM (Rec: 08/12/22 05:11 FM [id number]) Charge List Any New Charges This Shift No Document 08/12/22 17:00 [email or web address] (Rec: 08/12/22 17:22 [email or web address] [id number]) Charge List Any New Charges This Shift No Document 08/13/22 05:00 FM (Rec: 08/13/22 05:48 FM [id number]) Charge List Any New Charges This Shift No Collect Specimen: Urinalysis Start: 08/04/22 14:22 Freq: ONCE Status: Complete Protocol: Document 08/04/22 14:22 (2) (Rec: 08/04/22 14:22 (2) [id number]) Collect Specimen: Urinalysis Start: 08/06/22 13:24 Freq: ONCE Status: Complete Protocol: Document 08/06/22 13:24 (Rec: 08/06/22 17:32 [id number]) Communicable Disease Assessment Start: 08/04/22 05:23 Freq: ONCE Status: Discharge Protocol: Document 08/04/22 08:30 (2) (Rec: 08/04/22 08:30 (2) [id number]) Specific Travel Risk/Covid Has the Patient Tested Positive at No Another Facility Has Patient Tested Positive for the Flu No in Past 15 Days ED Charges Start: 08/04/22 05:15 Freq: 06,18 Status: Discharge Protocol: Document 08/04/22 08:29 (2) (Rec: 08/04/22 08:30 (2) [id number]) ED Charge List Miscellaneous Charges Adult Pulse Oximeter ED Discharge Assessment Start: 08/04/22 05:15 Freq: Status: Discharge Protocol: Document 08/04/22 15:14 (2) (Rec: 08/04/22 15:15 (2) [id number]) ED Discharge Assessment Discharge Disposition Admitted as Inpatient Referals To Be Completed Services or Tests To Be Set Up Condition on Discharge Good IV Site Status Fluids Continued/Intact Mode of Discharge Stretcher Discharge Comments Patient transfer to med surg via ed bed by techs. Patient in NAD, resting in bed with equal chest rise. Add ACI Crisis Number No ED Lower Extremity Injury Assessment Start: 08/04/22 05:23 Freq: Status: Discharge Protocol: Document 08/04/22 05:37 MG (Rec: 08/04/22 05:42 MG [id number]) Extremity Injury, Lower Symptoms/Complaint Hip Injury Context Unknown Improves With Nothing,Cold Therapy Worsens With Weight Bearing Associated Symptoms Unable to Bear Weight Other Symptoms None Comment Patient stated she had back surgery on Friday here. Patient stated she thinks she over did it with walking. Patient has hx of left hip replacement twice. Patient stated she had her left hip re -replaced having a longer vika placed last year in [place]. Left Pelvis Musculoskeletal Injury Description Unable to Bear Weight Level of Consciousness Awake,Alert,Appropriate, Follows Commands Patient Orientation (long list) Person,Place,Time,Name,Age, Birthday Patient Behavior Appropriate,Cooperative Ability to Follow Directions Good Patient Cognition Impaired No ED Patient Rounding Start: 08/04/22 05:23 Freq: HRNDS Status: Discharge Protocol: Document 08/04/22 08:29 (2) (Rec: 08/04/22 08:30 (2) [id number]) ED Patient Rounds Environmental Check Brakes On Document 08/04/22 14:24 (2) (Rec: 08/04/22 14:24 (2) [id number]) ED Patient Rounds Environmental Check Brakes On ED Teaching Record Start: 08/04/22 05:23 Freq: ONCE Status: Discharge Protocol: Document 08/04/22 05:37 MG (Rec: 08/04/22 05:42 MG [id number]) ED Teaching Record [place] Teaching Orientation to Room Teaching Recipient Patient Teaching Methods Discussion Response to Teaching Teach Back What is patient/guardian's preferred Nauruan language? Teaching Materials Given in Preferred Yes Language Needed for Clear Communication None ED Triage Limitations Physical Limitations ED Triage Assessment Start: 08/04/22 05:15 Freq: Status: Discharge Protocol: Document 08/04/22 05:17 [email or web address] (Rec: 08/04/22 05:23 [email or web address] [id number]) Triage Patient Stated Complaint Hip pain Chief Complaint Triage Extremity Injury, Lower ED Triage Comment Pt. is having left hip pain after having surger on her left hip on friday. Pt. states to EMS that she thinks that she was up walking around and may have over done it. Stroke Alert No STEMI Alert No Initial EKG Done No Mode of Arrival EMS Condition Stable Source of Information Patient Height 5 ft 6 in Weight 150 lb BMI (kg/m?) 24.2 Patient is a Female of Child Bearing Age No (10 - 59 years old) Patient No Abuse and Neglect Screening Exploitation No Any Indication of Neglect by Self No Any Indication of Neglect by Caregiver No Any Indication of Abuse No Psychiatric Behavioral Present Psychiatric Behaviors Present No CARRINGTON CARRINGTON Level 3 Urgent ED Vital Signs with Sepsis Start: 08/04/22 05:15 Freq: Q2HR Status: Discharge Protocol: Document 08/04/22 05:17 [email or web address] (Rec: 08/04/22 05:23 [email or web address] [id number]) ED Vital Signs with Sepsis Temperature (97.6 F-99.6 F) 98.4 F Source Oral Pulse Rate (60-100) 96 Respiratory Rate (12-18) 18 Pulse Oximetry (90-100) 93 Oxygen Delivery Method Nasal Cannula,CAG Flow Rate 2 Blood Pressure 174/94 Mean (mmHg) 120 Source Automatic Cuff Level of Consciousness Awake,Alert,Appropriate Patient Orientation Person,Place Patient Behavior Appropriate,Cooperative Ability to Follow Directions Excellent Patient Cognition Impaired No Recent Fever Within 48 Hours No Infection Criteria Present None New/Unexplained Change in Mental Status No Sepsis Screen No Definite Risk Capillary Refill < 2 Seconds Document 08/04/22 05:37 MG (Rec: 08/04/22 05:42 MG [id number]) ED Vital Signs with Sepsis Pulse Rate (60-100) 85 Respiratory Rate (12-18) 18 Depth Normal Effort Spontaneous Pattern Normal Pulse Oximetry (90-100) 96 Oxygen Delivery Method Room Air Blood Pressure 174/95 Mean (mmHg) 121 Source Automatic Cuff Position Supine Level of Consciousness Awake,Alert,Appropriate Patient Orientation Person,Place,Time,Name,Age, Birthday Patient Behavior Appropriate,Cooperative Ability to Follow Directions Good Patient Cognition Impaired No Recent Fever Within 48 Hours No Infection Criteria Present None Sepsis Screen No Definite Risk Document 08/04/22 08:29 (2) (Rec: 08/04/22 08:30 (2) [id number]) ED Vital Signs with Sepsis Pulse Oximetry (90-100) 97 Oxygen Delivery Method Nasal Cannula Flow Rate 2 Level of Consciousness Awake,Alert Sepsis Screen No Definite Risk Document 08/04/22 08:30 (2) (Rec: 08/04/22 08:31 (2) [id number]) ED Vital Signs with Sepsis Pulse Oximetry (90-100) 97 Oxygen Delivery Method Nasal Cannula Flow Rate 2 Sepsis Screen No Definite Risk Document 08/04/22 14:24 (2) (Rec: 08/04/22 14:24 (2) [id number]) ED Vital Signs with Sepsis Pulse Oximetry (90-100) 95 Oxygen Delivery Method Nasal Cannula Flow Rate 2 Sepsis Screen No Definite Risk EKG Performed Start: 08/04/22 11:07 Freq: ONCE Status: Complete Protocol: Document 08/04/22 14:24 (2) (Rec: 08/04/22 14:24 (2) [id number]) EKG Completed and Given to Provider EKG Completed and Given to Provider Yes EKG Performed Start: 08/06/22 13:35 Freq: ONCE Status: Complete Protocol: Document 08/06/22 13:35 (Rec: 08/06/22 17:53 [id number]) EKG Assessment EKG Method Telemetry NH Interval (0.12-0.20 seconds) 0.16 QRS Interval (0.06-0.10 seconds) 0.08 QT Interval (0.30-0.40 seconds) 0.38 ST Segment (0.08-0.12 seconds) 0.16 H EKG Rhythm Normal Sinus Rhythm [place] Risk Assessment Start: 08/04/22 05:15 Freq: ONCE Status: Discharge Protocol: Document 08/04/22 05:17 [email or web address] (Rec: 08/04/22 05:23 [email or web address] [id number]) Elopement Risk Assessment Elopement Medical No Elopement Psych No [place]op[place] Risk Assessment Start: 08/04/22 15:41 Freq: ONCE Status: Active Protocol: Document 08/04/22 15:41 CB (Rec: 08/04/22 16:14 CB [id number]) Elopement Risk Assessment Elopement Medical No Elopement Psych No Fall Risk Assessment Start: 08/04/22 05:15 Freq: ONCE Status: Discharge Protocol: Document 08/04/22 05:17 [email or web address] (Rec: 08/04/22 05:23 [email or web address] [id number]) Fall Risk Assessment History of Falling (Immediate or Yes Previous) Secondary Diagnosis (More Than 2 Medical No Diagnoses in Chart) Ambulatory Aid None/bed rest/nurse assist IV/Heparin Lock No Gait/Transferring Normal/bedrest/immobile Mental Status Oriented to own ability Score 25 Risk Level Moderate Fall Risk Action Implement Moderate Fall Risk Precautions Mod/High Fall Risk Precautions Remind patient to change positions slowly,Familiarize patient with environment, Provide call light within reach and ask patient to demo use,Provide adequate lighting in patient's room,Make sure patient's belongings are within reach,Educate patient on use of handrails in bathroom,Confirm patient has proper footwear,Keep bed brakes locked,Minimize clutter ; keep floor surfaces dry, Provide patient with Fall Risk instructional materials, Discharge plan,Increase observation,Set up toileting schedule for patient Fall Education Topics Moderate Risk Fall Precautions Initiated Response to Teaching - Fall Risk Verbalize Understanding Fall Risk Assessment Start: 08/04/22 15:41 Freq: Q1MX1,QSHIFT Status: Active Protocol: Document 08/04/22 15:41 CB (Rec: 08/04/22 16:14 CB [id number]) Fall Risk Assessment Patient Able to Participate in Fall Risk Yes Assessment History of Falling (Immediate or No Previous) Secondary Diagnosis (2 Or More Medical No Diagnoses in Chart) Ambulatory Aid None/bed rest/nurse assist IV/Heparin Lock Yes Gait/Transferring Normal/bedrest/immobile Mental Status Oriented to own ability Score 20 Risk Level Low Fall Risk Action Implement [place] Fall Risk Precautions Recommend Medication Review No Low Fall Risk Precautions Room Orientation,Needs Within Reach (Table, Belongings, Call Light),Provide Adequate Lighting,Confirm Patient Has Proper Footwear,Bed In Lowest Position, Bedrails Up X2, Wheels Locked,Minimize Clutter , Keep Floor Clean/Dry,Educate Pt On Fall Risk Status, Communicate Fall Risk Status With Staff Fall Education Topics Low Risk Fall Precautions Initiated Teaching Recipient - Fall Risk Patient Teaching Methods - Fall Risk Discussion Response to Teaching - Fall Risk Verbalize Understanding, Reinforcement Needed Document 08/04/22 20:00 MI (Rec: 08/05/22 01:13 MI [id number]) Fall Risk Assessment Patient Able to Participate in Fall Risk Yes Assessment History of Falling (Immediate or No Previous) Secondary Diagnosis (2 Or More Medical No Diagnoses in Chart) Ambulatory Aid None/bed rest/nurse assist IV/Heparin Lock Yes Gait/Transferring Normal/bedrest/immobile Mental Status Oriented to own ability Score 20 Risk Level Low Fall Risk Action Implement [place] Fall Risk Precautions Recommend Medication Review No Low Fall Risk Precautions Room Orientation,Needs Within Reach (Table, Belongings, Call Light),Provide Adequate Lighting,Confirm Patient Has Proper Footwear,Bed In Lowest Position, Bedrails Up X2, Wheels Locked,Minimize Clutter , Keep Floor Clean/Dry,Educate Pt On Fall Risk Status, Communicate Fall Risk Status With Staff Fall Education Topics Low Risk Fall Precautions Initiated Teaching Recipient - Fall Risk Patient Teaching Methods - Fall Risk Discussion Response to Teaching - Fall Risk Verbalize Understanding Document 08/05/22 10:45 (Rec: 08/05/22 10:48 [id number]) Fall Risk Assessment Patient Able to Participate in Fall Risk Yes Assessment History of Falling (Immediate or Yes Previous) Secondary Diagnosis (2 Or More Medical No Diagnoses in Chart) Ambulatory Aid None/bed rest/nurse assist IV/Heparin Lock Yes Gait/Transferring Impaired Mental Status Oriented to own ability Score 65 Risk Level High Fall Risk Action Implement High Fall Risk Precautions Recommend Medication Review No High Fall Risk Precautions Room Orientation,Needs Within Reach (Table, Belongings, Call Light),Provide Adequate Lighting,Confirm Patient Has Proper Footwear,Bed In Lowest Position, Bedrails Up X2, Wheels Locked,Minimize Clutter , Keep Floor Clean/Dry Fall Education Topics Moderate Risk Fall Precautions Initiated Teaching Recipient - Fall Risk Patient Teaching Methods - Fall Risk Discussion Response to Teaching - Fall Risk Verbalize Understanding Document 08/05/22 20:00 MI (Rec: 08/06/22 01:31 MI [id number]) Fall Risk Assessment Patient Able to Participate in Fall Risk Yes Assessment History of Falling (Immediate or Yes Previous) Secondary Diagnosis (2 Or More Medical No Diagnoses in Chart) Ambulatory Aid None/bed rest/nurse assist IV/Heparin Lock Yes Gait/Transferring Impaired Mental Status Oriented to own ability Score 65 Risk Level High Fall Risk Action Implement High Fall Risk Precautions Recommend Medication Review No Low Fall Risk Precautions Room Orientation,Needs Within Reach (Table, Belongings, Call Light),Provide Adequate Lighting,Confirm Patient Has Proper Footwear,Bed In Lowest Position, Bedrails Up X2, Wheels Locked,Minimize Clutter , Keep Floor Clean/Dry,Educate Pt On Fall Risk Status, Communicate Fall Risk Status With Staff High Fall Risk Precautions Room Orientation,Needs Within Reach (Table, Belongings, Call Light),Provide Adequate Lighting,Confirm Patient Has Proper Footwear,Bed In Lowest Position, Bedrails Up X2, Wheels Locked,Minimize Clutter , Keep Floor Clean/Dry,Educate Pt On Fall Risk Status, Communicate Fall Risk Status With Staff Fall Education Topics Moderate Risk Fall Precautions Initiated Teaching Recipient - Fall Risk Patient Teaching Methods - Fall Risk Discussion Response to Teaching - Fall Risk Verbalize Understanding Document 08/06/22 08:00 (Rec: 08/06/22 12:12 [id number]) Fall Risk Assessment Patient Able to Participate in Fall Risk No Assessment History of Falling (Immediate or Yes Previous) Secondary Diagnosis (2 Or More Medical Yes Diagnoses in Chart) Ambulatory Aid None/bed rest/nurse assist IV/Heparin Lock Yes Gait/Transferring Impaired Mental Status Forgets limitations Score 95 Risk Level High Fall Risk Action Implement High Fall Risk Precautions Recommend Medication Review Yes High Fall Risk Precautions Room Orientation,Needs Within Reach (Table, Belongings, Call Light),Provide Adequate Lighting,Confirm Patient Has Proper Footwear,Bed In Lowest Position, Bedrails Up X2, Wheels Locked,Minimize Clutter , Keep Floor Clean/Dry,Educate Pt On Fall Risk Status,Fall Risk Wristband On,Colored Socks Indicating Fall Risk On Fall Education Topics High Risk Fall Precaution Initiated Teaching Recipient - Fall Risk Patient Teaching Methods - Fall Risk Discussion Response to Teaching - Fall Risk Reinforcement Needed Document 08/06/22 20:00 SC (Rec: 08/06/22 21:22 SC [id number]) Fall Risk Assessment Patient Able to Participate in Fall Risk No Assessment History of Falling (Immediate or Yes Previous) Secondary Diagnosis (2 Or More Medical Yes Diagnoses in Chart) Ambulatory Aid None/bed rest/nurse assist IV/Heparin Lock Yes Gait/Transferring Impaired Mental Status Forgets limitations Score 95 Risk Level High Fall Risk Action Implement High Fall Risk Precautions Recommend Medication Review Yes High Fall Risk Precautions Room Orientation,Needs Within Reach (Table, Belongings, Call Light),Provide Adequate Lighting,Confirm Patient Has Proper Footwear,Bed In Lowest Position, Bedrails Up X2, Wheels Locked,Minimize Clutter , Keep Floor Clean/Dry,Educate Pt On Fall Risk Status,Fall Risk Wristband On,Colored Socks Indicating Fall Risk On, Set Bed/Chair Alarm,Gait Belt When Up With Staff,Communicate Fall Risk Status With Staff Fall Education Topics High Risk Fall Precaution Initiated Teaching Recipient - Fall Risk Patient Teaching Methods - Fall Risk Discussion Response to Teaching - Fall Risk Reinforcement Needed Document 08/07/22 08:00 LB (Rec: 08/07/22 11:40 LB [id number]) Fall Risk Assessment Patient Able to Participate in Fall Risk Yes Assessment History of Falling (Immediate or Yes Previous) Secondary Diagnosis (2 Or More Medical Yes Diagnoses in Chart) Ambulatory Aid None/bed rest/nurse assist IV/Heparin Lock Yes Gait/Transferring Weak Mental Status Forgets limitations Score 85 Risk Level High Fall Risk Action Implement High Fall Risk Precautions Recommend Medication Review Yes High Fall Risk Precautions Room Orientation,Needs Within Reach (Table, Belongings, Call Light),Provide Adequate Lighting,Confirm Patient Has Proper Footwear,Bed In Lowest Position, Bedrails Up X2, Wheels Locked,Minimize Clutter , Keep Floor Clean/Dry,Educate Pt On Fall Risk Status,Fall Risk Wristband On,Colored Socks Indicating Fall Risk On, Fall Risk Signage On Display, Set Bed/Chair Alarm,Increased Observation,Gait Belt When Up With Staff,Move Close To Nurses Station,Communicate Fall Risk Status With Staff Fall Education Topics High Risk Fall Precaution Initiated Teaching Recipient - Fall Risk Patient Teaching Methods - Fall Risk Discussion Response to Teaching - Fall Risk Verbalize Understanding, Reinforcement Needed Document 08/07/22 20:00 AC (Rec: 08/07/22 23:53 AC [id number]) Fall Risk Assessment Patient Able to Participate in Fall Risk Yes Assessment History of Falling (Immediate or Yes Previous) Secondary Diagnosis (2 Or More Medical Yes Diagnoses in Chart) Ambulatory Aid None/bed rest/nurse assist IV/Heparin Lock Yes Gait/Transferring Weak Mental Status Forgets limitations Score 85 Risk Level High Fall Risk Action Implement High Fall Risk Precautions Recommend Medication Review Yes Low Fall Risk Precautions Room Orientation,Needs Within Reach (Table, Belongings, Call Light),Provide Adequate Lighting,Confirm Patient Has Proper Footwear,Bed In Lowest Position, Bedrails Up X2, Wheels Locked,Minimize Clutter , Keep Floor Clean/Dry,Educate Pt On Fall Risk Status, Communicate Fall Risk Status With Staff High Fall Risk Precautions Room Orientation,Needs Within Reach (Table, Belongings, Call Light),Provide Adequate Lighting,Confirm Patient Has Proper Footwear,Bed In Lowest Position, Bedrails Up X2, Wheels Locked,Minimize Clutter , Keep Floor Clean/Dry,Educate Pt On Fall Risk Status,Fall Risk Wristband On,Colored Socks Indicating Fall Risk On, Fall Risk Signage On Display, Set Bed/Chair Alarm,Increased Observation,Gait Belt When Up With Staff,Move Close To Nurses Station,Communicate Fall Risk Status With Staff Fall Education Topics High Risk Fall Precaution Initiated Teaching Recipient - Fall Risk Patient Teaching Methods - Fall Risk Discussion Response to Teaching - Fall Risk Verbalize Understanding, Reinforcement Needed Document 08/08/22 08:00 LB (Rec: 08/08/22 19:48 LB [id number]) Fall Risk Assessment Patient Able to Participate in Fall Risk Yes Assessment History of Falling (Immediate or Yes Previous) Secondary Diagnosis (2 Or More Medical Yes Diagnoses in Chart) Ambulatory Aid None/bed rest/nurse assist IV/Heparin Lock Yes Gait/Transferring Weak Mental Status Forgets limitations Score 85 Risk Level High Fall Risk Action Implement High Fall Risk Precautions Recommend Medication Review Yes High Fall Risk Precautions Room Orientation,Needs Within Reach (Table, Belongings, Call Light),Provide Adequate Lighting,Confirm Patient Has Proper Footwear,Bed In Lowest Position, Bedrails Up X2, Wheels Locked,Minimize Clutter , Keep Floor Clean/Dry,Educate Pt On Fall Risk Status,Fall Risk Wristband On,Colored Socks Indicating Fall Risk On, Fall Risk Signage On Display, Set Bed/Chair Alarm,Increased Observation,Gait Belt When Up With Staff,Move Close To Nurses Station,Communicate Fall Risk Status With Staff Fall Education Topics High Risk Fall Precaution Initiated Teaching Recipient - Fall Risk Patient Teaching Methods - Fall Risk Discussion Response to Teaching - Fall Risk Verbalize Understanding, Reinforcement Needed Document 08/08/22 20:00 AC (Rec: 08/08/22 21:43 AC [id number]) Fall Risk Assessment Patient Able to Participate in Fall Risk Yes Assessment History of Falling (Immediate or Yes Previous) Secondary Diagnosis (2 Or More Medical Yes Diagnoses in Chart) Ambulatory Aid None/bed rest/nurse assist IV/Heparin Lock Yes Gait/Transferring Weak Mental Status Forgets limitations Score 85 Risk Level High Fall Risk Action Implement High Fall Risk Precautions Recommend Medication Review Yes Low Fall Risk Precautions Room Orientation,Needs Within Reach (Table, Belongings, Call Light),Provide Adequate Lighting,Confirm Patient Has Proper Footwear,Bed In Lowest Position, Bedrails Up X2, Wheels Locked,Minimize Clutter , Keep Floor Clean/Dry,Educate Pt On Fall Risk Status, Communicate Fall Risk Status With Staff High Fall Risk Precautions Room Orientation,Needs Within Reach (Table, Belongings, Call Light),Provide Adequate Lighting,Confirm Patient Has Proper Footwear,Bed In Lowest Position, Bedrails Up X2, Wheels Locked,Minimize Clutter , Keep Floor Clean/Dry,Educate Pt On Fall Risk Status,Fall Risk Wristband On,Colored Socks Indicating Fall Risk On, Fall Risk Signage On Display, Set Bed/Chair Alarm,Increased Observation,Gait Belt When Up With Staff,Move Close To Nurses Station,Communicate Fall Risk Status With Staff Fall Education Topics High Risk Fall Precaution Initiated Teaching Recipient - Fall Risk Patient Teaching Methods - Fall Risk Discussion Response to Teaching - Fall Risk Verbalize Understanding, Reinforcement Needed Document 08/09/22 08:00 SK (Rec: 08/09/22 11:17 SK [id number]) Fall Risk Assessment Patient Able to Participate in Fall Risk Yes Assessment History of Falling (Immediate or Yes Previous) Secondary Diagnosis (2 Or More Medical Yes Diagnoses in Chart) Ambulatory Aid None/bed rest/nurse assist IV/Heparin Lock Yes Gait/Transferring Weak Mental Status Forgets limitations Score 85 Risk Level High Fall Risk Action Implement High Fall Risk Precautions Recommend Medication Review Yes High Fall Risk Precautions Room Orientation,Needs Within Reach (Table, Belongings, Call Light),Provide Adequate Lighting,Confirm Patient Has Proper Footwear,Bed In Lowest Position, Bedrails Up X2, Wheels Locked,Minimize Clutter , Keep Floor Clean/Dry,Educate Pt On Fall Risk Status,Fall Risk Wristband On,Fall Risk Signage On Display,Set Bed/ Chair Alarm,Increased Observation,Gait Belt When Up With Staff,Move Close To Nurses Station,Communicate Fall Risk Status With Staff Fall Education Topics High Risk Fall Precaution Initiated Teaching Recipient - Fall Risk Patient Teaching Methods - Fall Risk Discussion Response to Teaching - Fall Risk Verbalize Understanding, Reinforcement Needed Document 08/09/22 19:59 (Rec: 08/09/22 20:05 [id number]) Fall Risk Assessment Patient Able to Participate in Fall Risk Yes Assessment History of Falling (Immediate or Yes Previous) Secondary Diagnosis (2 Or More Medical Yes Diagnoses in Chart) Ambulatory Aid None/bed rest/nurse assist IV/Heparin Lock Yes Gait/Transferring Weak Mental Status Forgets limitations Score 85 Risk Level High Fall Risk Action Implement High Fall Risk Precautions Recommend Medication Review Yes Low Fall Risk Precautions Room Orientation,Needs Within Reach (Table, Belongings, Call Light),Provide Adequate Lighting,Confirm Patient Has Proper Footwear,Bed In Lowest Position, Bedrails Up X2, Wheels Locked,Minimize Clutter , Keep Floor Clean/Dry,Educate Pt On Fall Risk Status, Communicate Fall Risk Status With Staff High Fall Risk Precautions Room Orientation,Needs Within Reach (Table, Belongings, Call Light),Provide Adequate Lighting,Confirm Patient Has Proper Footwear,Bed In Lowest Position, Bedrails Up X2, Wheels Locked,Minimize Clutter , Keep Floor Clean/Dry,Educate Pt On Fall Risk Status,Fall Risk Wristband On,Fall Risk Signage On Display,Set Bed/ Chair Alarm,Increased Observation,Gait Belt When Up With Staff,Move Close To Nurses Station,Communicate Fall Risk Status With Staff Fall Education Topics High Risk Fall Precaution Initiated Teaching Recipient - Fall Risk Patient Teaching Methods - Fall Risk Discussion Response to Teaching - Fall Risk Verbalize Understanding, Reinforcement Needed Document 08/10/22 08:00 [facility] (Rec: 08/10/22 16:33 [facility] [id number]) Fall Risk Assessment Patient Able to Participate in Fall Risk Yes Assessment History of Falling (Immediate or Yes Previous) Secondary Diagnosis (2 Or More Medical Yes Diagnoses in Chart) Ambulatory Aid None/bed rest/nurse assist IV/Heparin Lock Yes Gait/Transferring Weak Mental Status Forgets limitations Score 85 Risk Level High Fall Risk Action Implement High Fall Risk Precautions Recommend Medication Review Yes High Fall Risk Precautions Room Orientation,Needs Within Reach (Table, Belongings, Call Light),Provide Adequate Lighting,Confirm Patient Has Proper Footwear,Bed In Lowest Position, Bedrails Up X2, Wheels Locked,Minimize Clutter , Keep Floor Clean/Dry,Educate Pt On Fall Risk Status,Fall Risk Wristband On,Fall Risk Signage On Display,Set Bed/ Chair Alarm,Increased Observation,Gait Belt When Up With Staff,Move Close To Nurses Station,Communicate Fall Risk Status With Staff Fall Education Topics High Risk Fall Precaution Initiated Teaching Recipient - Fall Risk Patient Teaching Methods - Fall Risk Discussion Response to Teaching - Fall Risk Verbalize Understanding, Reinforcement Needed Document 08/10/22 20:00 EM (Rec: 08/10/22 20:56 EM [id number]) Fall Risk Assessment Patient Able to Participate in Fall Risk Yes Assessment History of Falling (Immediate or Yes Previous) Secondary Diagnosis (2 Or More Medical Yes Diagnoses in Chart) Ambulatory Aid None/bed rest/nurse assist IV/Heparin Lock Yes Gait/Transferring Weak Mental Status Forgets limitations Score 85 Risk Level High Fall Risk Action Implement High Fall Risk Precautions Recommend Medication Review Yes High Fall Risk Precautions Room Orientation,Needs Within Reach (Table, Belongings, Call Light),Provide Adequate Lighting,Confirm Patient Has Proper Footwear,Bed In Lowest Position, Bedrails Up X2, Wheels Locked,Minimize Clutter , Keep Floor Clean/Dry,Educate Pt On Fall Risk Status,Fall Risk Wristband On,Fall Risk Signage On Display,Set Bed/ Chair Alarm,Increased Observation,Gait Belt When Up With Staff,Move Close To Nurses Station,Communicate Fall Risk Status With Staff Fall Education Topics High Risk Fall Precaution Initiated Teaching Recipient - Fall Risk Patient Teaching Methods - Fall Risk Discussion Response to Teaching - Fall Risk Verbalize Understanding, Reinforcement Needed Document 08/11/22 08:00 [facility] (Rec: 08/11/22 16:49 MCG2 [id number]) Fall Risk Assessment Patient Able to Participate in Fall Risk Yes Assessment History of Falling (Immediate or Yes Previous) Secondary Diagnosis (2 Or More Medical Yes Diagnoses in Chart) Ambulatory Aid None/bed rest/nurse assist IV/Heparin Lock Yes Gait/Transferring Weak Mental Status Forgets limitations Score 85 Risk Level High Fall Risk Action Implement High Fall Risk Precautions Recommend Medication Review Yes Low Fall Risk Precautions Room Orientation,Needs Within Reach (Table, Belongings, Call Light),Provide Adequate Lighting,Confirm Patient Has Proper Footwear,Bed In Lowest Position, Bedrails Up X2, Wheels Locked,Minimize Clutter , Keep Floor Clean/Dry,Educate Pt On Fall Risk Status, Communicate Fall Risk Status With Staff High Fall Risk Precautions Room Orientation,Needs Within Reach (Table, Belongings, Call Light),Provide Adequate Lighting,Confirm Patient Has Proper Footwear,Bed In Lowest Position, Bedrails Up X2, Wheels Locked,Minimize Clutter , Keep Floor Clean/Dry,Educate Pt On Fall Risk Status,Fall Risk Wristband On,Fall Risk Signage On Display,Set Bed/ Chair Alarm,Increased Observation,Gait Belt When Up With Staff,Move Close To Nurses Station,Communicate Fall Risk Status With Staff Fall Education Topics High Risk Fall Precaution Initiated Teaching Recipient - Fall Risk Patient Teaching Methods - Fall Risk Discussion Response to Teaching - Fall Risk Verbalize Understanding, Reinforcement Needed Document 08/11/22 20:00 FM (Rec: 08/11/22 22:29 FM [id number]) Fall Risk Assessment Patient Able to Participate in Fall Risk Yes Assessment History of Falling (Immediate or Yes Previous) Secondary Diagnosis (2 Or More Medical Yes Diagnoses in Chart) Ambulatory Aid None/bed rest/nurse assist IV/Heparin Lock Yes Gait/Transferring Weak Mental Status Forgets limitations Score 85 Risk Level High Fall Risk Action Implement High Fall Risk Precautions Recommend Medication Review Yes Low Fall Risk Precautions Room Orientation,Needs Within Reach (Table, Belongings, Call Light),Provide Adequate Lighting,Confirm Patient Has Proper Footwear,Bed In Lowest Position, Bedrails Up X2, Wheels Locked,Minimize Clutter , Keep Floor Clean/Dry,Educate Pt On Fall Risk Status, Communicate Fall Risk Status With Staff High Fall Risk Precautions Room Orientation,Needs Within Reach (Table, Belongings, Call Light),Provide Adequate Lighting,Confirm Patient Has Proper Footwear,Bed In Lowest Position, Bedrails Up X2, Wheels Locked,Minimize Clutter , Keep Floor Clean/Dry,Educate Pt On Fall Risk Status,Fall Risk Wristband On,Fall Risk Signage On Display,Set Bed/ Chair Alarm,Increased Observation,Gait Belt When Up With Staff,Move Close To Nurses Station,Communicate Fall Risk Status With Staff Fall Education Topics High Risk Fall Precaution Initiated Teaching Recipient - Fall Risk Patient Teaching Methods - Fall Risk Discussion Response to Teaching - Fall Risk Verbalize Understanding, Reinforcement Needed Document 08/12/22 08:00 [email or web address] (Rec: 08/12/22 16:24 [facility] [id number]) Fall Risk Assessment Patient Able to Participate in Fall Risk Yes Assessment History of Falling (Immediate or Yes Previous) Secondary Diagnosis (2 Or More Medical Yes Diagnoses in Chart) Ambulatory Aid None/bed rest/nurse assist IV/Heparin Lock Yes Gait/Transferring Weak Mental Status Forgets limitations Score 85 Risk Level High Fall Risk Action Implement High Fall Risk Precautions Recommend Medication Review Yes High Fall Risk Precautions Room Orientation,Needs Within Reach (Table, Belongings, Call Light),Provide Adequate Lighting,Confirm Patient Has Proper Footwear,Bed In Lowest Position, Bedrails Up X2, Wheels Locked,Minimize Clutter , Keep Floor Clean/Dry,Educate Pt On Fall Risk Status,Fall Risk Wristband On,Fall Risk Signage On Display,Set Bed/ Chair Alarm,Increased Observation,Gait Belt When Up With Staff,Move Close To Nurses Station,Communicate Fall Risk Status With Staff Fall Education Topics High Risk Fall Precaution Initiated Teaching Recipient - Fall Risk Patient Teaching Methods - Fall Risk Discussion Response to Teaching - Fall Risk Verbalize Understanding, Reinforcement Needed Document 08/12/22 20:00 FM (Rec: 08/12/22 21:52 FM [id number]) Fall Risk Assessment Patient Able to Participate in Fall Risk Yes Assessment History of Falling (Immediate or Yes Previous) Secondary Diagnosis (2 Or More Medical Yes Diagnoses in Chart) Ambulatory Aid None/bed rest/nurse assist IV/Heparin Lock Yes Gait/Transferring Weak Mental Status Forgets limitations Score 85 Risk Level High Fall Risk Action Implement High Fall Risk Precautions Recommend Medication Review Yes Low Fall Risk Precautions Room Orientation,Needs Within Reach (Table, Belongings, Call Light),Provide Adequate Lighting,Confirm Patient Has Proper Footwear,Bed In Lowest Position, Bedrails Up X2, Wheels Locked,Minimize Clutter , Keep Floor Clean/Dry,Educate Pt On Fall Risk Status, Communicate Fall Risk Status With Staff High Fall Risk Precautions Room Orientation,Needs Within Reach (Table, Belongings, Call Light),Provide Adequate Lighting,Confirm Patient Has Proper Footwear,Bed In Lowest Position, Bedrails Up X2, Wheels Locked,Minimize Clutter , Keep Floor Clean/Dry,Educate Pt On Fall Risk Status,Fall Risk Wristband On,Fall Risk Signage On Display,Set Bed/ Chair Alarm,Increased Observation,Gait Belt When Up With Staff,Move Close To Nurses Station,Communicate Fall Risk Status With Staff Fall Education Topics High Risk Fall Precaution Initiated Teaching Recipient - Fall Risk Patient Teaching Methods - Fall Risk Discussion Response to Teaching - Fall Risk Verbalize Understanding, Reinforcement Needed Document 08/13/22 07:48 KN (Rec: 08/13/22 07:49 KN [id number]) Fall Risk Assessment Patient Able to Participate in Fall Risk Yes Assessment History of Falling (Immediate or Yes Previous) Secondary Diagnosis (2 Or More Medical Yes Diagnoses in Chart) Ambulatory Aid None/bed rest/nurse assist IV/Heparin Lock Yes Gait/Transferring Weak Mental Status Forgets limitations Score 85 Risk Level High Fall Risk Action Implement High Fall Risk Precautions Recommend Medication Review Yes High Fall Risk Precautions Room Orientation,Needs Within Reach (Table, Belongings, Call Light),Provide Adequate Lighting,Confirm Patient Has Proper Footwear,Bed In Lowest Position, Bedrails Up X2, Wheels Locked,Minimize Clutter , Keep Floor Clean/Dry,Educate Pt On Fall Risk Status,Fall Risk Wristband On,Colored Socks Indicating Fall Risk On, Fall Risk Signage On Display, Set Bed/Chair Alarm,Increased Observation,Gait Belt When Up With Staff,Move Close To Nurses Station,Communicate Fall Risk Status With Staff Fall Education Topics High Risk Fall Precaution Initiated Teaching Recipient - Fall Risk Patient Teaching Methods - Fall Risk Discussion Response to Teaching - Fall Risk Verbalize Understanding Height & Weight Assessment Start: 08/04/22 15:41 Freq: ONCE Status: Active Protocol: Document 08/04/22 15:41 CB (Rec: 08/04/22 16:14 CB [id number]) Height and Weight Height 5 ft 5 in Weight 151 lb 1 oz Weight Measurement Method Built in [facility] Body Mass Index (kg/m?) 25.1 BMI Classification Overweight IV Insertion Start: 08/04/22 05:23 Freq: PRN Status: Inactive Protocol: Document 08/04/22 05:37 MG (Rec: 08/04/22 05:42 MG [id number]) IV Insertion IV/Invasive Line Present on Admission Yes Left Forearm Type Peripheral IV Date of Insertion 08/04/22 Gauge (Fr) 20 Site Secured Venaguard,J-Loop Nursing Lab Draw Number of Saline Flushes Used 2 Blood Draw Location Left,Peripheral Line IV Insertion Start: 08/04/22 15:41 Freq: NEEDED Status: Active Protocol: Document 08/09/22 16:30 JRP (Rec: 08/09/22 16:30 JRP [id number]) IV Insertion IV/Invasive Line Present on Admission No Right Wrist Type Peripheral IV Date of Insertion 08/09/22 Time of Insertion 16:00 Insertion Attempts 1 Gauge (Fr) 22 Site Secured Venaguard Line Insertion Patient Tolerance Tolerated Well IV Site and Tubing Dated and Initialed Yes Immunization Assessment Start: 08/04/22 15:41 Freq: ONCE Status: Complete Protocol: Document 08/04/22 15:41 CB (Rec: 08/04/22 16:14 CB [id number]) Immunization Assessment Patient is 65 Years of Age or Older Yes Patient Meets Recommendations for Yes Pneumonia Vaccine Pneumonia Contraindications Received in Past 5 Years Patient to Receive Vaccination No Influenza Contraindications Received Vaccine This Current Season Have You Recieved a COVID Vaccine No Initial Pain Assessment Start: 08/04/22 05:15 Freq: ONCE Status: Complete Protocol: Document 08/04/22 05:17 OLIJO2 (Rec: 08/04/22 05:23 OLIJO2 [id number]) Pain Assessment Pain Present Yes Left Hip Description Acute,Chronic Intensity 9 Scale Used Numeric (1 - 10) Management Goal 3 Initial Pain Assessment Start: 08/04/22 15:41 Freq: ONCE Status: Complete Protocol: Document 08/04/22 15:41 CB (Rec: 08/04/22 16:14 CB [id number]) Pain Assessment Pain Present Yes Left Hip Description Burning,Sharp Intensity 10 Scale Used Numeric (1 - 10) Frequency Constant Duration Units Minutes Pain Aggravating Factors Activity Pain Alleviating Factors Prior to Visit None Management Techniques Apply Cold Management Goal 3 Pain Control Barriers Concerns About Side Effects Intake and Output Start: 08/04/22 15:41 Freq: 05,08,12,17,22 Status: Active Protocol: Document 08/04/22 16:22 CR (Rec: 08/04/22 16:23 CR [id number]) Intake and Output Output, Urine Amount (Catheter) 650 Urine color Dark Yellow Urine Odor Not Observed Document 08/04/22 17:00 CB (Rec: 08/04/22 18:34 CB [id number]) Intake and Output Meal Dinner Percent Meal Consumed 0% Feeding Ability Assist with Tray Set Up Diet Tolerated Refused Intake, Oral Amount 300 Document 08/04/22 18:59 CR (Rec: 08/04/22 18:59 CR [id number]) Intake and Output Output, Urine Amount (Catheter) 300 Urine color Dark Yellow Document 08/04/22 21:31 SC (Rec: 08/04/22 21:32 SC [id number]) Intake and Output sodium chloride 0.9% 1,000 ml @ 75 mls/hr IV .[id number] [facility] Rx#:[id number] Intake, IV Amount 651.25 Document 08/04/22 22:00 EC2 (Rec: 08/05/22 01:02 EC2 [id number]) Intake and Output Percent Meal Consumed 0% Document 08/05/22 05:00 EC2 (Rec: 08/05/22 06:35 EC2 [id number]) Intake and Output Output, Urine Amount (Catheter) 400 Urine Characteristics Clear Urine color Dark Stefani Urine Odor Normal Document 08/05/22 08:00 CR (Rec: 08/05/22 09:48 CR MS110) Intake and Output Meal Breakfast Percent Meal Consumed 0% Intake, Oral Amount 300 Document 08/05/22 10:56 (Rec: 08/05/22 10:56 MS107) Intake and Output sodium chloride 0.9% 1,000 ml @ 75 mls/hr IV .[id number] [facility] Rx#:[id number] Intake, IV Amount 1,000 Document 08/05/22 12:00 (Rec: 08/05/22 13:18 MS004) Intake and Output Meal Lunch Percent Meal Consumed 100% Feeding Ability Independent Diet Tolerated Fair Patient is NPO Yes Stool Characteristics Not observed Urine Characteristics Not Observed Document 08/05/22 15:36 (Rec: 08/05/22 15:37 MS004) Intake and Output sodium chloride 0.9% 1,000 ml @ 75 mls/hr IV .[id number] [facility] Rx#:[id number] Intake, IV Amount 350 Document 08/05/22 17:00 BEACA (Rec: 08/05/22 18:27 BEACA [id number]) Intake and Output Meal Dinner Percent Meal Consumed 0% Diet Tolerated Refused Output, Urine Amount (Catheter) 1,200 Document 08/05/22 22:00 SC (Rec: 08/06/22 01:35 SC [id number]) Intake and Output Intake, Oral Amount 120 Document 08/06/22 05:00 BO (Rec: 08/06/22 05:27 BO MS004) Intake and Output Output, Urine Amount 750 Document 08/06/22 08:00 SMICA7 (Rec: 08/06/22 10:43 SMICA7 MS012) Intake and Output Meal Breakfast Percent Meal Consumed 25% Feeding Ability Independent Intake, Oral Amount 240 Document 08/06/22 12:13 (Rec: 08/06/22 12:14 MS111) Intake and Output Stool Characteristics Not observed Urine color Dark Yellow Document 08/06/22 17:00 (Rec: 08/06/22 17:55 [id number]) Intake and Output Meal Dinner Percent Meal Consumed 0% Feeding Ability Needs Supervision/ Encouragement Stool Characteristics Not observed Urine Characteristics Clear Urine color Dark Yellow Urine Odor Normal Document 08/06/22 18:02 (Rec: 08/06/22 18:02 MS111) Intake and Output cefTRIAXone 1,000 mg In sodium chloride 0.9% (plus) 50 ml @ 100 mls/hr IV Q24H [facility] Rx#:[id number] Intake, IV Amount 50 Document 08/06/22 18:37 SMICA7 (Rec: 08/06/22 18:37 SMICA7 MS012) Intake and Output Meal Dinner Diet Tolerated Refused Output, Urine Amount (Catheter) 500 Document 08/06/22 23:00 SRL (Rec: 08/06/22 23:14 SRL MS110) Intake and Output Output, Urine Amount 250 Urine color Dark Yellow Document 08/07/22 05:00 ABBBR (Rec: 08/07/22 06:07 ABBBR MS008) Intake and Output Output, Urine Amount (Catheter) 200 Document 08/07/22 08:00 DC (Rec: 08/07/22 08:36 DC MS005) Intake and Output Meal Breakfast Percent Meal Consumed 0% Patient is NPO Yes Intake, Oral Amount 0 Document 08/07/22 12:00 SMICA7 (Rec: 08/07/22 13:49 SMICA7 [id number]) Intake and Output Meal Lunch Percent Meal Consumed 25% Feeding Ability Independent Intake, Oral Amount 120 Document 08/07/22 17:00 SMICA7 (Rec: 08/07/22 18:41 SMICA7 [id number]) Intake and Output Meal Dinner Percent Meal Consumed 25% Feeding Ability Independent Intake, Oral Amount 120 Document 08/07/22 22:00 ABBBR (Rec: 08/07/22 22:20 ABBBR [id number]) Intake and Output Number of Voids 1 Document 08/08/22 05:00 SRL (Rec: 08/08/22 05:08 SRL [id number]) Intake and Output Intake, Oral Amount 360 Output, Urine Amount 600 Urine Characteristics Cloudy Urine color Dark Yellow Document 08/08/22 08:00 CR (Rec: 08/08/22 10:03 CR [id number]) Intake and Output Meal Breakfast Diet Tolerated Refused Document 08/08/22 12:00 CR (Rec: 08/08/22 14:00 CR [id number]) Intake and Output Meal Lunch Percent Meal Consumed 25% Feeding Ability Independent Diet Tolerated Fair Intake, Oral Amount 240 Document 08/08/22 18:32 CR (Rec: 08/08/22 18:33 CR [id number]) Intake and Output Meal Dinner Percent Meal Consumed 25% Feeding Ability Independent Diet Tolerated Fair Intake, Oral Amount 240 Urine color Bright Yellow Document 08/08/22 22:00 KELCH2 (Rec: 08/09/22 00:56 KELCH2 MS010) Intake and Output Intake, Oral Amount 600 Output, Urine Amount (Catheter) 550 Urine color Light Stefani Document 08/09/22 05:00 AC (Rec: 08/09/22 06:09 AC [id number]) Intake and Output Intake, Oral Amount 300 Document 08/09/22 08:00 CR (Rec: 08/09/22 10:01 CR MS013) Intake and Output Meal Lunch Percent Meal Consumed 25% Feeding Ability Independent Diet Tolerated Poor Intake, Oral Amount 240 Document 08/09/22 12:00 CR (Rec: 08/09/22 14:21 CR MS013) Intake and Output Meal Lunch Percent Meal Consumed 50% Feeding Ability Independent Diet Tolerated Well Intake, Oral Amount 480 Document 08/09/22 17:00 CR (Rec: 08/09/22 18:07 CR [id number]) Intake and Output Meal Dinner Percent Meal Consumed 100% Feeding Ability Independent Diet Tolerated Well Intake, Oral Amount 480 Document 08/09/22 22:00 AC (Rec: 08/10/22 00:27 AC [id number]) Intake and Output Intake, Oral Amount 300 Document 08/10/22 04:13 AC (Rec: 08/10/22 04:14 AC [id number]) Intake and Output Intake, Oral Amount 150 Stool Characteristics Not observed Urine Characteristics Cloudy Urine color Light Stefani Urine Odor Normal Document 08/10/22 06:37 EM (Rec: 08/10/22 06:37 EM MS009) Intake and Output Output, Urine Amount (Catheter) 400 Document 08/10/22 10:00 NEASH (Rec: 08/10/22 10:16 NEASH MS016) Intake and Output Meal Breakfast Percent Meal Consumed 100% Feeding Ability Independent Diet Tolerated Well Patient is NPO No Intake, Oral Amount 118 Document 08/10/22 12:00 MCGHA2 (Rec: 08/10/22 16:35 MCGHA2 [id number]) Intake and Output Stool Characteristics Not observed Document 08/10/22 17:00 NEASH (Rec: 08/10/22 18:10 NEASH MS016) Intake and Output Meal Dinner Percent Meal Consumed 100% Feeding Ability Independent Diet Tolerated Well Patient is NPO No Output, Urine Amount (Catheter) 400 Urine Characteristics Clear Urine color Bright Yellow Urine Odor Normal Document 08/10/22 22:00 ABBBR (Rec: 08/10/22 23:51 ABBBR MS011) Intake and Output Output, Urine Amount (Catheter) 800 Document 08/11/22 05:00 EM (Rec: 08/11/22 05:35 EM MS114) Intake and Output Intake, Oral Amount 240 Output, Urine Amount (Catheter) 475 Document 08/11/22 08:00 CR (Rec: 08/11/22 10:46 CR MS011) Intake and Output Meal Breakfast Percent Meal Consumed 100% Feeding Ability Independent Diet Tolerated Well Intake, Oral Amount 480 Document 08/11/22 12:00 RAB (Rec: 08/11/22 13:16 RAB [id number]) Intake and Output Meal Lunch Percent Meal Consumed 100% Feeding Ability Independent Intake, Oral Amount 120 Document 08/11/22 17:00 RAB (Rec: 08/11/22 18:33 RAB [id number]) Intake and Output Meal Dinner Percent Meal Consumed 100% Feeding Ability Independent Intake, Oral Amount 240 Document 08/11/22 22:00 FM (Rec: 08/11/22 22:31 FM [id number]) Intake and Output Intake, Oral Amount 120 Number of Voids 2 Document 08/12/22 05:00 FM (Rec: 08/12/22 05:11 FM MS004) Intake and Output Number of Voids 2 Document 08/12/22 08:00 KB (Rec: 08/12/22 10:26 KB [id number]) Intake and Output Meal Breakfast Percent Meal Consumed 25% Intake, Oral Amount 240 Document 08/12/22 12:00 JA (Rec: 08/12/22 13:21 JA [id number]) Intake and Output Meal Lunch Percent Meal Consumed 100% Feeding Ability Independent Diet Tolerated Well Intake, Oral Amount 120 Document 08/12/22 14:56 JA (Rec: 08/12/22 14:56 JA [id number]) Intake and Output Number of Voids 1 Number of Bowel Movements 1 Stool Characteristics Not observed Document 08/12/22 17:00 KB (Rec: 08/12/22 18:18 KB MS117) Intake and Output Meal Dinner Percent Meal Consumed 25% Feeding Ability Assist with Tray Set Up Diet Tolerated Poor Patient is NPO No Intake, Oral Amount 120 Document 08/12/22 18:19 KB (Rec: 08/12/22 18:19 KB [id number]) Intake and Output Number of Voids 2 Number of Bowel Movements 1 Document 08/12/22 21:53 FM (Rec: 08/12/22 21:54 FM [id number]) Intake and Output Intake, Oral Amount 120 Document 08/13/22 05:00 FM (Rec: 08/13/22 05:48 FM [id number]) Intake and Output Number of Voids 2 Document 08/13/22 08:00 RAB (Rec: 08/13/22 09:45 RAB [id number]) Intake and Output Meal Breakfast Percent Meal Consumed 50% Feeding Ability Independent Intake, Oral Amount 120 Intermittent Pneumatic Compression Start: 08/04/22 10:48 Freq: Q1MX1,QSHIFT Status: Active Protocol: Document 08/04/22 20:00 SC (Rec: 08/05/22 01:13 SC [id number]) VTE Assessment Reason Mechanical Device Not Applied Refused Document 08/05/22 10:45 (Rec: 08/05/22 10:48 [id number]) VTE Assessment Embolism Prevention Not Applicable Document 08/05/22 20:00 SC (Rec: 08/06/22 01:31 SC [id number]) VTE Assessment Reason Mechanical Device Not Applied Refused Document 08/06/22 08:00 (Rec: 08/06/22 12:12 [id number]) VTE Assessment Embolism Prevention Not Applicable Document 08/06/22 20:00 SC (Rec: 08/06/22 21:22 SC [id number]) VTE Assessment Reason Mechanical Device Not Applied Refused Document 08/07/22 08:00 LB (Rec: 08/07/22 11:40 LB [id number]) VTE Assessment Reason Mechanical Device Not Applied Refused Document 08/07/22 20:00 AC (Rec: 08/07/22 23:53 AC [id number]) VTE Assessment Embolism Prevention Not Applicable Reason Mechanical Device Not Applied Refused Document 08/08/22 08:00 LB (Rec: 08/08/22 19:48 LB [id number]) VTE Assessment Reason Mechanical Device Not Applied Refused Document 08/08/22 20:00 AC (Rec: 08/08/22 21:43 AC [id number]) VTE Assessment Embolism Prevention Not Applicable Reason Mechanical Device Not Applied Refused Document 08/09/22 19:59 AC (Rec: 08/09/22 20:05 AC [id number]) VTE Assessment Embolism Prevention Not Applicable Reason Mechanical Device Not Applied Refused Document 08/10/22 08:00 MCGHA2 (Rec: 08/10/22 16:33 MCGHA2 [id number]) VTE Assessment Embolism Prevention Not Applicable Reason Mechanical Device Not Applied Refused Document 08/10/22 20:00 EM (Rec: 08/10/22 20:56 EM [id number]) VTE Assessment Embolism Prevention Not Applicable Reason Mechanical Device Not Applied Refused Document 08/11/22 08:00 MCGHA2 (Rec: 08/11/22 16:49 MCGHA2 [id number]) VTE Assessment Embolism Prevention Not Applicable Reason Mechanical Device Not Applied Refused Document 08/11/22 20:00 FM (Rec: 08/11/22 22:29 FM MS001) VTE Assessment Embolism Prevention Not Applicable Reason Mechanical Device Not Applied Refused Document 08/12/22 08:00 MCGHA2 (Rec: 08/12/22 16:24 MCGHA2 [id number]) VTE Assessment Embolism Prevention Not Applicable Reason Mechanical Device Not Applied Refused Document 08/12/22 20:00 FM (Rec: 08/12/22 21:52 FM MS100) VTE Assessment Embolism Prevention Not Applicable Reason Mechanical Device Not Applied Refused Document 08/13/22 07:49 KN (Rec: 08/13/22 07:50 KN MS005) VTE Assessment Reason Mechanical Device Not Applied Refused Invasive Concrete Vibrator Operator Start: 08/04/22 05:23 Freq: Q2H Status: Inactive Protocol: Document 08/04/22 05:37 MG (Rec: 08/04/22 05:42 MG [id number]) Nursing Lab Draw Number of Saline Flushes Used 2 Blood Draw Location Left,Peripheral Line Document 08/04/22 08:29 (2) (Rec: 08/04/22 08:30 (2) [id number]) IV Concrete Vibrator Operator Left Forearm Site Observation/Description Patent/Intact,Clean/Dry, Asymptomatic Document 08/04/22 14:24 (2) (Rec: 08/04/22 14:24 (2) [id number]) IV Concrete Vibrator Operator Left Forearm Site Observation/Description Patent/Intact,Clean/Dry, Asymptomatic Invasive Concrete Vibrator Operator Start: 08/04/22 15:41 Freq: QSHIFT Status: Complete Protocol: Document 08/04/22 20:00 SC (Rec: 08/04/22 22:08 SC [id number]) IV Concrete Vibrator Operator Left Forearm Site Observation/Description Patent/Intact,Clean/Dry Document 08/05/22 10:45 (Rec: 08/05/22 10:48 [id number]) IV Concrete Vibrator Operator Left Forearm Site Observation/Description Patent/Intact,Clean/Dry Dressing Applied/Reinforced Micropore Tape,Transparent Dressing Line Care Saline Flush Document 08/05/22 20:00 SC (Rec: 08/06/22 01:31 SC [id number]) IV Concrete Vibrator Operator Left Forearm Site Observation/Description Patent/Intact,Clean/Dry Document 08/06/22 08:00 (Rec: 08/06/22 12:12 [id number]) IV Concrete Vibrator Operator Left Forearm Site Observation/Description Patent/Intact,Clean/Dry Dressing Applied/Reinforced Micropore Tape,Transparent Dressing Line Care Saline Flush Document 08/06/22 20:00 SC (Rec: 08/06/22 21:22 SC [id number]) IV Concrete Vibrator Operator Left Forearm Site Observation/Description Patent/Intact,Clean/Dry Document 08/07/22 08:00 LB (Rec: 08/07/22 11:40 LB [id number]) IV Concrete Vibrator Operator Left Forearm Site Observation/Description Patent/Intact,Clean/Dry, Asymptomatic Site Observation Intervention Inspected Line Line Complications Patient Pulled Catheter Out Date Line Discontinued 08/07/22 Time Line Discontinued 08:15 Condition of Line Removed INTACT Line Removal Patient Tolerance Tolerated Well Document 08/07/22 20:00 AC (Rec: 08/07/22 23:53 AC [id number]) IV Concrete Vibrator Operator Left Forearm Line Complications Patient Pulled Catheter Out Date Line Discontinued 08/07/22 Time Line Discontinued 08:15 Condition of Line Removed INTACT Line Removal Patient Tolerance Tolerated Well Manage Urinary Catheter Start: 08/04/22 15:12 Freq: 0600,1800 Status: Complete Protocol: CAUTI.PROT Document 08/04/22 18:00 CB (Rec: 08/04/22 18:36 CB [id number]) Placement Information Sarmiento Date Of Insertion 08/04/22 Time Of Insertion 15:13 Catheter Placement Elapsed Time 0 days, 3 hours, 21 minutes Catheter Size (Fijian) 12 Catheter Balloon Amount (ml) 10 Urinary Catheter Assessment Patency Patent/Draining Catheter Care Martha-care Indwelling Catheter Care Protocol Closed System Intact,Bag Hung Below Bladder,Catheter Properly Secured,Tubing Free of Kinks Reason for Continuing Indwelling Required Immobilization for Catheter Trauma or Surgery or Anesthesia Document 08/05/22 06:00 SC (Rec: 08/05/22 06:38 MI [id number]) Placement Information Sarmiento Date Of Insertion 08/04/22 Time Of Insertion 15:13 Catheter Placement Elapsed Time 0 days, 15 hours, 25 minutes Catheter Size (Fijian) 12 Catheter Balloon Amount (ml) 10 Urinary Catheter Assessment Patency Patent/Draining Indwelling Catheter Care Protocol Closed System Intact,Bag Hung Below Bladder,Catheter Properly Secured,Tubing Free of Kinks Reason for Continuing Indwelling Required Immobilization for Catheter Trauma or Surgery or Anesthesia Document 08/05/22 18:00 (Rec: 08/05/22 19:09 [id number]) Placement Information Sarmiento Date Of Insertion 08/04/22 Time Of Insertion 15:13 Catheter Placement Elapsed Time 1 days, 3 hours, 3 minutes Urinary Catheter Assessment Indwelling Catheter Care Protocol Closed System Intact,Bag Hung Below Bladder,Catheter Properly Secured,Tubing Free of Kinks Reason for Continuing Indwelling Accurate Measurement of Catheter Urinary Output in Critically Ill Patients Document 08/06/22 06:00 MI (Rec: 08/06/22 06:09 MI [id number]) Placement Information Sarmiento Date Of Insertion 08/04/22 Time Of Insertion 15:13 Catheter Placement Elapsed Time 1 days, 14 hours, 14 minutes Urinary Catheter Assessment Patency Patent/Draining Indwelling Catheter Care Protocol Closed System Intact,Bag Hung Below Bladder,Catheter Properly Secured,Tubing Free of Kinks Reason for Continuing Indwelling Required Immobilization for Catheter Trauma or Surgery or Anesthesia Document 08/06/22 17:55 (Rec: 08/06/22 18:02 [id number]) Placement Information Sarmiento Date Of Insertion 08/04/22 Time Of Insertion 15:13 Catheter Placement Elapsed Time 2 days, 2 hours, 2 minutes Catheter Size (Fijian) 12 Catheter Balloon Amount (ml) 10 Urinary Catheter Assessment Indwelling Catheter Care Protocol Closed System Intact,Bag Hung Below Bladder,Catheter Properly Secured,Tubing Free of Kinks Reason for Continuing Indwelling Accurate Measurement of Catheter Urinary Output in Critically Ill Patients Document 08/07/22 06:00 MI (Rec: 08/07/22 06:13 MI [id number]) Placement Information Sarmiento Date Of Insertion 08/04/22 Time Of Insertion 15:13 Catheter Placement Elapsed Time 2 days, 15 hours, 14 minutes Catheter Size (Fijian) 12 Catheter Balloon Amount (ml) 10 Urinary Catheter Assessment Patency Patent/Draining Indwelling Catheter Care Protocol Closed System Intact,Bag Hung Below Bladder,Catheter Properly Secured,Tubing Free of Kinks Reason for Continuing Indwelling Required Immobilization for Catheter Trauma or Surgery or Anesthesia Document 08/07/22 18:00 LB (Rec: 08/07/22 19:47 LB [id number]) Placement Information Sarmiento Date Of Insertion 08/04/22 Time Of Insertion 15:13 Catheter Placement Elapsed Time 3 days, 4 hours, 4 minutes Urinary Catheter Assessment Patency Patent/Draining Catheter Care Martha-care Indwelling Catheter Care Protocol Closed System Intact,Bag Hung Below Bladder,Catheter Properly Secured,Tubing Free of Kinks Reason for Continuing Indwelling Other Catheter Document 08/08/22 06:00 AC (Rec: 08/08/22 06:14 AC [id number]) Placement Information Sarm[place] Date Of Insertion 08/04/22 Time Of Insertion 15:13 Catheter Placement Elapsed Time 3 days, 15 hours, 14 minutes Urinary Catheter Assessment Patency Patent/Draining Catheter Care Martha-care Indwelling Catheter Care Protocol Closed System Intact,Bag Hung Below Bladder,Catheter Properly Secured,Tubing Free of Kinks Reason for Continuing Indwelling Other Catheter Document 08/08/22 18:00 LB (Rec: 08/08/22 19:50 LB [id number]) Placement Information Sarmiento Date Of Insertion 08/04/22 Time Of Insertion 15:13 Catheter Placement Elapsed Time 4 days, 4 hours, 4 minutes Urinary Catheter Assessment Patency Patent/Draining Catheter Care Martha-care Indwelling Catheter Care Protocol Closed System Intact,Bag Hung Below Bladder,Catheter Properly Secured,Tubing Free of Kinks Reason for Continuing Indwelling Other Catheter Document 08/09/22 06:00 AC (Rec: 08/09/22 06:10 AC [id number]) Placement Information Sarm[place] Date Of Insertion 08/04/22 Time Of Insertion 15:13 Catheter Placement Elapsed Time 4 days, 14 hours, 14 minutes Urinary Catheter Assessment Patency Patent/Draining Catheter Care Martha-care Indwelling Catheter Care Protocol Closed System Intact,Bag Hung Below Bladder,Catheter Properly Secured,Tubing Free of Kinks Reason for Continuing Indwelling Other Catheter Document 08/09/22 18:00 (Rec: 08/09/22 19:15 [id number]) Placement Information Sarmiento Date Of Insertion 08/04/22 Time Of Insertion 15:13 Catheter Placement Elapsed Time 5 days, 4 hours, 3 minutes Urinary Catheter Assessment Patency Patent/Draining Catheter Care Martha-care Indwelling Catheter Care Protocol Closed System Intact,Bag Hung Below Bladder,Catheter Properly Secured,Tubing Free of Kinks Reason for Continuing Indwelling Other Catheter Document 08/10/22 05:38 AC (Rec: 08/10/22 05:38 AC [id number]) Placement Information Sarmiento Date Of Insertion 08/04/22 Time Of Insertion 15:13 Catheter Placement Elapsed Time 5 days, 14 hours, 14 minutes Urinary Catheter Assessment Patency Patent/Draining Catheter Care Martha-care Indwelling Catheter Care Protocol Closed System Intact,Bag Hung Below Bladder,Catheter Properly Secured,Tubing Free of Kinks Reason for Continuing Indwelling Other Catheter Document 08/10/22 16:36 [email or web address] (Rec: 08/10/22 16:36 [email or web address] [id number]) Placement Information Sarmiento Date Of Insertion 08/04/22 Time Of Insertion 15:13 Catheter Placement Elapsed Time 6 days, 1 hours, 1 minutes Urinary Catheter Assessment Reason for Continuing Indwelling Other Catheter Document 08/11/22 06:00 EM (Rec: 08/11/22 06:48 EM [id number]) Placement Information Sarmiento Date Of Insertion 08/04/22 Time Of Insertion 15:13 Catheter Placement Elapsed Time 6 days, 15 hours, 15 minutes Urinary Catheter Assessment Patency Patent/Draining Catheter Care Martha-care Indwelling Catheter Care Protocol Closed System Intact,Bag Hung Below Bladder,Catheter Properly Secured,Tubing Free of Kinks Reason for Continuing Indwelling Other Catheter NIH Stroke Scale Start: 08/06/22 13:27 Freq: [id number] Status: Active Protocol: Document 08/06/22 13:27 (Rec: 08/06/22 17:50 [id number]) NIH Stroke Scale Level Of Consciousness - 1a 2 Level Of Consciousness Questions One Correct Level Of Consciousness Commands Both Correct Best Gaze Normal Visual Bazzi No Visual Loss Facial Palsy - 4 Normal Motor Arm Right - 5 Effort Against [place] Motor Arm Left - 5 Effort Against [place] Motor Leg Right - 6 Effort Against [place] Motor Leg Left - 6 Effort Against [place] Limb Ataxia - 7 Absent Sensory - 8 Normal Best Language - 9 Mild/Moderate Aphasia Dysarthia - 10 Mild/Moderate Dysarthia Extinction And Inattention - 11 0 Total Score 13 Document 08/07/22 01:27 SC (Rec: 08/07/22 02:28 SC [id number]) NIH Stroke Scale Level Of Consciousness - 1a 0 Level Of Consciousness Commands One Correct Best Gaze Normal Visual Bazzi No Visual Loss Facial Palsy - 4 Normal Motor Arm Right - 5 No Drift Motor Arm Left - 5 No Drift Motor Leg Right - 6 No Drift Motor Leg Left - 6 No Drift Limb Ataxia - 7 Absent Sensory - 8 Normal Best Language - 9 No Aphasia Dysarthia - 10 Normal Extinction And Inattention - 11 0 Document 08/07/22 13:27 LB (Rec: 08/07/22 19:46 LB [id number]) NIH Stroke Scale Level Of Consciousness - 1a 0 Level Of Consciousness Questions One Correct Level Of Consciousness Commands Both Correct Best Gaze Normal Visual Bazzi No Visual Loss Facial Palsy - 4 Normal Motor Arm Right - 5 No Drift Motor Arm Left - 5 No Drift Motor Leg Right - 6 No Drift Motor Leg Left - 6 No Drift Limb Ataxia - 7 Absent Best Language - 9 No Aphasia Dysarthia - 10 Normal Extinction And Inattention - 11 0 Document 08/08/22 01:27 AC (Rec: 08/08/22 07:03 AC [id number]) NIH Stroke Scale Level Of Consciousness - 1a 0 Level Of Consciousness Questions Both Correct Level Of Consciousness Commands Both Correct Best Gaze Normal Visual Bazzi No Visual Loss Facial Palsy - 4 Normal Motor Arm Right - 5 No Drift Motor Arm Left - 5 No Drift Motor Leg Right - 6 No Drift Motor Leg Left - 6 No Drift Limb Ataxia - 7 Absent Sensory - 8 Normal Best Language - 9 No Aphasia Dysarthia - 10 Normal Extinction And Inattention - 11 0 Total Score 0 Nursing Considerations - Fall Risk Start: 08/04/22 16:14 Freq: [id number],BIDNUR Status: Active Protocol: Document 08/04/22 16:14 CB (Rec: 08/04/22 16:20 CB [id number]) Document 08/04/22 20:00 SC (Rec: 08/04/22 22:08 SC [id number]) Document 08/05/22 10:45 (Rec: 08/05/22 10:48 [id number]) Document 08/05/22 20:00 SC (Rec: 08/06/22 01:31 SC [id number]) Document 08/06/22 08:00 (Rec: 08/06/22 12:12 [id number]) Document 08/06/22 20:00 SC (Rec: 08/06/22 21:23 SC [id number]) Document 08/07/22 08:00 LB (Rec: 08/07/22 11:37 LB [email or web address]) Document 08/07/22 20:00 AC (Rec: 08/07/22 23:53 AC [id number]) Document 08/08/22 08:00 LB (Rec: 08/08/22 11:43 LB [id number]) Document 08/08/22 20:00 AC (Rec: 08/08/22 21:43 AC [id number]) Document 08/09/22 08:00 SK (Rec: 08/09/22 08:26 SK [id number]) Document 08/09/22 19:59 AC (Rec: 08/09/22 20:05 AC [id number]) Document 08/10/22 08:00 [id number] (Rec: 08/10/22 16:33 [id number] [id number]) Document 08/10/22 20:00 EM (Rec: 08/10/22 20:56 EM [id number]) Document 08/11/22 08:00 MCGHA2 (Rec: 08/11/22 16:49 [id number] [email or web address]) Document 08/11/22 20:00 FM (Rec: 08/11/22 22:29 FM [email or web address]) Document 08/12/22 08:00 MCGHA2 (Rec: 08/12/22 16:24 [id number] [id number]) Document 08/12/22 20:00 FM (Rec: 08/12/22 21:52 FM [id number]) Document 08/13/22 07:49 KN (Rec: 08/13/22 07:50 KN [id number]) Nursing Shift Assessment Start: 08/04/22 15:41 Freq: QSHIFT Status: Active Protocol: Document 08/04/22 20:00 SC (Rec: 08/05/22 01:12 SC [id number]) Nursing Shift Assessment Infection Criteria Present None Neurological - Within Defined Parameters WNL Patient Appearance Appropriate Motor Activity Within Normal Limits Flow of Thought Appropriate Thought Content Appropriate Affect Description Appropriate Intellect Average Suicidal Ideation Description None Paranoia No Bizarre Behavior No Patient Orientation (long list) Person,Place,Time,Name,Age, Birthday,Year Arousable To Verbal Speech Pattern Appropriate,Clear Patient Behavior Appropriate,Cooperative Memory Description Intact Gag reflex response Present Bilateral Pupil [place] PERRLA Reaction Brisk Muscle Strength RUE: Within Normal Limits RLE: Within Normal Limits LUE: Within Normal Limits LLE: Moderate Weakness Respiratory - Within Defined Parameters WNL Depth Normal Effort Spontaneous,Non-Labored Respiratory Pattern Normal Bilateral Throughout Breath Sounds Clear Cough description Non-Productive Frequency Intermittent Cardiovascular - Within Defined WNL Parameters Capillary Refill < 3 Seconds Gastroinstestinal - Within Defined WNL Parameters Abdomen Description Soft,Non-Tender Elimination Rectum Stool Characteristics Not observed Bowel Sounds RLQ: Hypoactive RUQ: Hypoactive LUQ: Hypoactive LLQ: Hypoactive Genitourinary - Within Defined Some Exceptions Parameters Voiding Method Indwelling Catheter Integumentary - Within Defined WNL Parameters HEENT - Within Defined Parameters WNL Female Reproductive - Within Defined WNL Parameters Document 08/05/22 10:45 (Rec: 08/05/22 10:48 [id number]) Nursing Shift Assessment Infection Criteria Present None Neurological - Within Defined Parameters WNL Respiratory - Within Defined Parameters Some Exceptions Bilateral Throughout Breath Sounds Diminished Cardiovascular - Within Defined WNL Parameters Gastroinstestinal - Within Defined WNL Parameters Date of Last Bowel Movement 17 feb Genitourinary - Within Defined Some Exceptions Parameters Voiding Method Indwelling Catheter Integumentary - Within Defined WNL Parameters HEENT - Within Defined Parameters WNL Female Reproductive - Within Defined WNL Parameters Document 08/05/22 20:00 SC (Rec: 08/06/22 01:34 MI [id number]) Nursing Shift Assessment Infection Criteria Present None Neurological - Within Defined Parameters WNL Patient Appearance Appropriate Motor Activity Within Normal Limits Flow of Thought Appropriate Thought Content Appropriate Intellect Average Suicidal Ideation Description None Paranoia No Bizarre Behavior No Patient Orientation (long list) Person,Place,Time,Name,Age, Birthday,Month,Year Arousable To Verbal Speech Pattern Appropriate,Clear Patient Behavior Appropriate,Cooperative Memory Description Intact Gag reflex response Present Muscle Strength RUE: Within Normal Limits RLE: Mild Weakness LUE: Within Normal Limits LLE: Mild Weakness Respiratory - Within Defined Parameters WNL Depth Normal Effort Spontaneous,Non-Labored Respiratory Pattern Normal Bilateral Throughout Breath Sounds Clear Cardiovascular - Within Defined WNL Parameters Apical Rhythm Regular Heart Sounds S1 & S2 Capillary Refill < 3 Seconds Gastroinstestinal - Within Defined Some Exceptions Parameters Abdomen Description Soft,Non-Tender Date of Last Bowel Movement 08/01/22 Bowel Sounds RLQ: Hypoactive RUQ: Hypoactive LUQ: Hypoactive LLQ: Hypoactive Genitourinary - Within Defined Some Exceptions Parameters Voiding Method Indwelling Catheter Integumentary - Within Defined Some Exceptions Parameters Skin Temperature Warm Moisture Dry Color Pale HEENT - Within Defined Parameters WNL Female Reproductive - Within Defined WNL Parameters Document 08/06/22 08:00 (Rec: 08/06/22 12:12 [id number]) Nursing Shift Assessment Infection Criteria Present None Neurological - Within Defined Parameters Some Exceptions Patient Orientation (long list) Person,Birthday Respiratory - Within Defined Parameters Some Exceptions Bilateral Throughout Breath Sounds Diminished Cardiovascular - Within Defined WNL Parameters Cardiovascular Comment on tele Gastroinstestinal - Within Defined WNL Parameters Genitourinary - Within Defined Some Exceptions Parameters Voiding Method Indwelling Catheter Integumentary - Within Defined Some Exceptions Parameters Integumentary Comment surgical incision HEENT - Within Defined Parameters WNL Female Reproductive - Within Defined WNL Parameters Document 08/06/22 20:00 SC (Rec: 08/06/22 21:27 SC [id number]) Nursing Shift Assessment Infection Criteria Present None Neurological - Within Defined Parameters Some Exceptions Patient Appearance Appropriate Motor Activity Below Normal Affect Description Appropriate Intellect Average Suicidal Ideation Description None Paranoia No Bizarre Behavior No Patient Orientation (long list) Person,Place,Name,Age,Birthday Arousable To Verbal Speech Pattern Clear Patient Behavior Appropriate,Cooperative Memory Description Intact Muscle Strength RUE: Within Normal Limits RLE: Moderate Weakness LUE: Within Normal Limits LLE: Moderate Weakness Respiratory - Within Defined Parameters WNL Depth Normal Effort Spontaneous,Non-Labored Respiratory Pattern Normal Bilateral Throughout Breath Sounds Clear,Diminished Cardiovascular - Within Defined WNL Parameters Capillary Refill < 3 Seconds Gastroinstestinal - Within Defined Some Exceptions Parameters Abdomen Description Soft,Non-Tender Date of Last Bowel Movement 08/01/22 Bowel Sounds RLQ: Hypoactive RUQ: Hypoactive LUQ: Hypoactive LLQ: Hypoactive Genitourinary - Within Defined Some Exceptions Parameters Voiding Method Indwelling Catheter Integumentary - Within Defined WNL Parameters HEENT - Within Defined Parameters WNL Female Reproductive - Within Defined WNL Parameters Document 08/07/22 08:00 LB (Rec: 08/07/22 14:53 LB [id number]) Nursing Shift Assessment Infection Criteria Present None Neurological - Within Defined Parameters Some Exceptions Patient Orientation (long list) Person,Place,Name Respiratory - Within Defined Parameters WNL Bilateral Throughout Breath Sounds Clear Cardiovascular - Within Defined WNL Parameters Left Apical Rhythm Regular Pulse Strength 3+ Normal Pulse Assessment Method Auscultation Gastroinstestinal - Within Defined Some Exceptions Parameters Bowel Sounds RLQ: Active RUQ: Active LUQ: Active LLQ: Active Genitourinary - Within Defined Some Exceptions Parameters Voiding Method Indwelling Catheter Integumentary - Within Defined WNL Parameters HEENT - Within Defined Parameters WNL Document 08/07/22 20:00 AC (Rec: 08/07/22 23:53 AC [id number]) Nursing Shift Assessment Infection Criteria Present None Neurological - Within Defined Parameters Some Exceptions Patient Appearance Appropriate Motor Activity Below Normal Flow of Thought Appropriate Thought Content Appropriate Affect Description Appropriate Intellect Average Suicidal Ideation Description None Paranoia No Bizarre Behavior No Patient Orientation (long list) Person,Place,Name Arousable To Verbal Speech Pattern Appropriate,Clear Patient Behavior Appropriate,Cooperative Memory Description Intact Gag reflex response Present Bilateral Reaction Brisk Muscle Strength RUE: Within Normal Limits RLE: Moderate Weakness LUE: Within Normal Limits LLE: Moderate Weakness Neurological Comment intermittent confusion Respiratory - Within Defined Parameters WNL Depth Normal Effort Spontaneous,Non-Labored Respiratory Pattern Normal Oxygen Flow Rate 2 Bilateral Throughout Breath Sounds Clear Cough description Non-Productive Frequency Intermittent Cardiovascular - Within Defined WNL Parameters Apical Rhythm Regular Heart Sounds S1 & S2 Left Radial Rhythm Regular Pulse Strength 3+ Normal Pulse Assessment Method Palpation Capillary Refill < 3 Seconds Gastroinstestinal - Within Defined Some Exceptions Parameters Abdomen Description Soft,Non-Tender Date of Last Bowel Movement 08/01/22 Elimination Rectum Stool Characteristics Not observed Bowel Sounds RLQ: Hypoactive RUQ: Hypoactive LUQ: Hypoactive LLQ: Hypoactive Bowel Pattern Regular,No Bowel Movement Genitourinary - Within Defined Some Exceptions Parameters Voiding Method Indwelling Catheter Integumentary - Within Defined WNL Parameters Skin Temperature Warm Moisture Dry Color Pale Skin Turgor Loose HEENT - Within Defined Parameters WNL Facial Symmetry Symmetrical Female Reproductive - Within Defined WNL Parameters Document 08/08/22 08:00 LB (Rec: 08/08/22 19:48 LB [id number]) Nursing Shift Assessment Infection Criteria Present None Neurological - Within Defined Parameters Some Exceptions Patient Appearance Appropriate Motor Activity Below Normal Flow of Thought Appropriate Thought Content Appropriate Affect Description Appropriate Intellect Average Suicidal Ideation Description None Paranoia No Bizarre Behavior No Patient Orientation (long list) Person,Place,Name,Birthday, Year Arousable To Verbal Speech Pattern Appropriate,Clear Patient Behavior Appropriate,Cooperative Memory Description Intact Gag reflex response Present Bilateral Reaction Brisk Muscle Strength Respiratory - Within Defined Parameters WNL Depth Normal Effort Spontaneous,Non-Labored Respiratory Pattern Normal Bilateral Throughout Breath Sounds Clear Cough description Non-Productive Frequency Intermittent Cardiovascular - Within Defined WNL Parameters Apical Rhythm Regular Heart Sounds S1 & S2 Left Apical Rhythm Regular Pulse Strength 3+ Normal Pulse Assessment Method Auscultation Cardiovascular Comment on tele Gastroinstestinal - Within Defined Some Exceptions Parameters Abdomen Description Soft,Non-Tender Bowel Sounds RLQ: Hypoactive RUQ: Hypoactive LUQ: Hypoactive LLQ: Hypoactive Genitourinary - Within Defined Some Exceptions Parameters Voiding Method Indwelling Catheter Integumentary - Within Defined WNL Parameters Skin Temperature Warm Moisture Dry Skin Turgor Loose Integumentary Comment surgical incision HEENT - Within Defined Parameters WNL Facial Symmetry Symmetrical Document 08/08/22 20:00 AC (Rec: 08/08/22 21:43 AC [id number]) Nursing Shift Assessment Infection Criteria Present None Neurological - Within Defined Parameters Some Exceptions Patient Appearance Appropriate Motor Activity Below Normal Flow of Thought Appropriate Thought Content Appropriate Affect Description Appropriate Intellect Average Suicidal Ideation Description None Paranoia No Bizarre Behavior No Patient Orientation (long list) Person,Place,Name,Birthday, Year Arousable To Verbal Speech Pattern Appropriate,Clear Patient Behavior Appropriate,Cooperative Memory Description Intact Gag reflex response Present Bilateral Reaction Brisk Neurological Comment intermittent confusion Respiratory - Within Defined Parameters WNL Depth Normal Effort Spontaneous,Non-Labored Respiratory Pattern Normal Oxygen Flow Rate 2 Bilateral Throughout Breath Sounds Clear Cough description Non-Productive Frequency Intermittent Cardiovascular - Within Defined WNL Parameters Apical Rhythm Regular Heart Sounds S1 & S2 Left Radial Rhythm Regular Pulse Strength 3+ Normal Pulse Assessment Method Palpation Left Apical Rhythm Regular Pulse Strength 3+ Normal Pulse Assessment Method Auscultation Capillary Refill < 3 Seconds Cardiovascular Comment on tele Gastroinstestinal - Within Defined Some Exceptions Parameters Abdomen Description Soft,Non-Tender Date of Last Bowel Movement 08/01/22 Elimination Rectum Stool Characteristics Not observed Bowel Sounds RLQ: Active RUQ: Active LUQ: Active LLQ: Active Bowel Pattern Regular,No Bowel Movement Genitourinary - Within Defined Some Exceptions Parameters Voiding Method Indwelling Catheter Integumentary - Within Defined WNL Parameters Skin Temperature Warm Moisture Dry Color Pale Skin Turgor Loose Integumentary Comment surgical incision HEENT - Within Defined Parameters WNL Facial Symmetry Symmetrical Female Reproductive - Within Defined WNL Parameters Document 08/09/22 08:00 SK (Rec: 08/09/22 10:54 SK [id number]) Nursing Shift Assessment Infection Criteria Present None Neurological - Within Defined Parameters Some Exceptions Patient Appearance Appropriate Motor Activity Below Normal Flow of Thought Appropriate Thought Content Appropriate Affect Description Appropriate Intellect Average Suicidal Ideation Description None Paranoia No Bizarre Behavior No Patient Orientation (long list) Person,Place,Name,Birthday, Year Arousable To Verbal Speech Pattern Appropriate,Clear Patient Behavior Appropriate,Cooperative Memory Description Intact Gag reflex response Present Bilateral Reaction Brisk Respiratory - Within Defined Parameters WNL Depth Normal Effort Spontaneous,Non-Labored Respiratory Pattern Normal Oxygen Flow Rate 2 Bilateral Throughout Breath Sounds Clear Cough description Non-Productive Frequency Intermittent Cardiovascular - Within Defined WNL Parameters Apical Rhythm Regular Heart Sounds S1 & S2 Left Radial Rhythm Regular Pulse Strength 3+ Normal Pulse Assessment Method Palpation Left Apical Rhythm Regular Pulse Strength 3+ Normal Pulse Assessment Method Auscultation Capillary Refill < 3 Seconds Cardiovascular Comment on tele Gastroinstestinal - Within Defined Some Exceptions Parameters Abdomen Description Soft,Non-Tender Date of Last Bowel Movement 08/01/22 Elimination Rectum Stool Characteristics Not observed Bowel Sounds RLQ: Hypoactive RUQ: Hypoactive LUQ: Hypoactive LLQ: Hypoactive Bowel Pattern Regular,No Bowel Movement Genitourinary - Within Defined Some Exceptions Parameters Voiding Method Indwelling Catheter Integumentary - Within Defined WNL Parameters Skin Temperature Warm Moisture Dry Color Pale Skin Turgor Loose Integumentary Comment surgical incision HEENT - Within Defined Parameters WNL Facial Symmetry Symmetrical Female Reproductive - Within Defined WNL Parameters Document 08/09/22 19:59 (Rec: 08/09/22 20:05 [id number]) Nursing Shift Assessment Infection Criteria Present None Neurological - Within Defined Parameters Some Exceptions Patient Appearance Appropriate Motor Activity Below Normal Flow of Thought Appropriate Thought Content Appropriate Affect Description Appropriate Intellect Average Suicidal Ideation Description None Paranoia No Bizarre Behavior No Patient Orientation (long list) Person,Place,Name,Birthday, Year Arousable To Verbal Speech Pattern Clear Patient Behavior Appropriate,Cooperative Memory Description Intact Gag reflex response Present Bilateral Reaction Brisk Respiratory - Within Defined Parameters WNL Depth Normal Effort Spontaneous,Non-Labored Respiratory Pattern Normal Oxygen Flow Rate 2 Bilateral Throughout Breath Sounds Clear Cough description Non-Productive Frequency Intermittent Cardiovascular - Within Defined WNL Parameters Apical Rhythm Regular Heart Sounds S1 & S2 Left Radial Rhythm Regular Pulse Strength 3+ Normal Pulse Assessment Method Palpation Left Apical Rhythm Regular Pulse Strength 3+ Normal Pulse Assessment Method Auscultation Capillary Refill < 3 Seconds Cardiovascular Comment on tele Gastroinstestinal - Within Defined Some Exceptions Parameters Abdomen Description Soft,Non-Tender Date of Last Bowel Movement 08/01/22 Elimination Rectum Stool Characteristics Not observed Bowel Sounds RLQ: Active RUQ: Active LUQ: Active LLQ: Active Bowel Pattern Regular,No Bowel Movement Genitourinary - Within Defined Some Exceptions Parameters Voiding Method Indwelling Catheter Integumentary - Within Defined WNL Parameters Skin Temperature Warm Moisture Dry Color Pale Skin Turgor Loose Integumentary Comment surgical incision HEENT - Within Defined Parameters WNL Facial Symmetry Symmetrical Female Reproductive - Within Defined WNL Parameters Document 08/10/22 08:00 [id number] (Rec: 08/10/22 16:33 [id number] [id number]) Nursing Shift Assessment Infection Criteria Present None Neurological - Within Defined Parameters Some Exceptions Patient Appearance Appropriate Motor Activity Below Normal Flow of Thought Appropriate Thought Content Appropriate Affect Description Appropriate Intellect Average Suicidal Ideation Description None Paranoia No Bizarre Behavior No Patient Orientation (long list) Person,Place,Name,Birthday, Year Arousable To Verbal Speech Pattern Clear Patient Behavior Appropriate,Cooperative Memory Description Intact Gag reflex response Present Bilateral Reaction Brisk Muscle Strength ALL: Moderate Weakness Neurological Comment intermittent confusion Respiratory - Within Defined Parameters WNL Respiratory Pattern Normal Oxygen Flow Rate 2 Cardiovascular - Within Defined WNL Parameters Apical Rhythm Regular Heart Sounds S1 & S2 Left Radial Pulse Strength 3+ Normal Pulse Assessment Method Palpation Left Apical Pulse Strength 3+ Normal Pulse Assessment Method Auscultation Capillary Refill < 3 Seconds Gastroinstestinal - Within Defined Some Exceptions Parameters Abdomen Description Soft,Non-Tender Elimination Rectum Stool Characteristics Not observed Bowel Sounds RLQ: Hypoactive RUQ: Hypoactive LUQ: Hypoactive LLQ: Hypoactive Bowel Pattern Regular,No Bowel Movement Genitourinary - Within Defined Some Exceptions Parameters Voiding Method Indwelling Catheter Integumentary - Within Defined WNL Parameters Skin Temperature Warm Moisture Dry Color Pale Skin Turgor Loose Integumentary Comment surgical incision HEENT - Within Defined Parameters WNL Facial Symmetry Symmetrical Female Reproductive - Within Defined WNL Parameters Document 08/10/22 20:00 EM (Rec: 08/10/22 20:56 EM [id number]) Nursing Shift Assessment Infection Criteria Present None Neurological - Within Defined Parameters Some Exceptions Patient Orientation (long list) Person,Place,Name,Birthday, Year Memory Description Intact All Four Limbs Muscle Strength (Extremity) Mild Weakness Respiratory - Within Defined Parameters WNL Cardiovascular - Within Defined WNL Parameters Gastroinstestinal - Within Defined Some Exceptions Parameters Date of Last Bowel Movement 08/01/22 Genitourinary - Within Defined Some Exceptions Parameters Voiding Method Indwelling Catheter Integumentary - Within Defined WNL Parameters HEENT - Within Defined Parameters WNL Document 08/11/22 08:00 [id number] (Rec: 08/11/22 16:49 [id number] [id number]) Nursing Shift Assessment Infection Criteria Present None Neurological - Within Defined Parameters Some Exceptions Patient Appearance Appropriate Motor Activity Within Normal Limits Flow of Thought Appropriate Thought Content Appropriate Affect Description Appropriate Intellect Average Suicidal Ideation Description None Paranoia No Bizarre Behavior No Patient Orientation (long list) Person,Place,Time,Name, Birthday,Year Arousable To Verbal Speech Pattern Clear Patient Behavior Appropriate,Cooperative Memory Description Intact Gag reflex response Present Bilateral Reaction Brisk All Four Limbs Muscle Strength (Extremity) Mild Weakness Muscle Strength ALL: Moderate Weakness Neurological Comment intermittent confusion Respiratory - Within Defined Parameters WNL Respiratory Pattern Normal Oxygen Flow Rate 2 Cardiovascular - Within Defined WNL Parameters Apical Rhythm Regular Heart Sounds S1 & S2 Left Radial Pulse Strength 3+ Normal Pulse Assessment Method Palpation Left Apical Pulse Strength 3+ Normal Pulse Assessment Method Auscultation Capillary Refill < 3 Seconds Gastroinstestinal - Within Defined Some Exceptions Parameters Abdomen Description Soft,Non-Tender Date of Last Bowel Movement 08/01/22 Elimination Rectum Stool Characteristics Not observed Bowel Sounds RLQ: Hypoactive RUQ: Hypoactive LUQ: Hypoactive LLQ: Hypoactive Bowel Pattern No Bowel Movement Genitourinary - Within Defined Some Exceptions Parameters Voiding Method Indwelling Catheter Integumentary - Within Defined WNL Parameters Skin Temperature Warm Moisture Dry Color Pale Skin Turgor Loose Integumentary Comment surgical incision HEENT - Within Defined Parameters WNL Facial Symmetry Symmetrical Female Reproductive - Within Defined WNL Parameters Document 08/11/22 20:00 FM (Rec: 08/11/22 22:30 FM [id number]) Nursing Shift Assessment Infection Criteria Present None Neurological - Within Defined Parameters Some Exceptions Patient Appearance Appropriate Motor Activity Within Normal Limits Flow of Thought Appropriate Thought Content Appropriate Affect Description Appropriate Intellect Average Suicidal Ideation Description None Paranoia No Bizarre Behavior No Patient Orientation (long list) Person,Place,Time,Name, Birthday,Year Arousable To Verbal Speech Pattern Clear Patient Behavior Appropriate,Cooperative Memory Description Intact Gag reflex response Present Bilateral Reaction Brisk All Four Limbs Muscle Strength (Extremity) Mild Weakness Muscle Strength ALL: Moderate Weakness Neurological Comment intermittent confusion Respiratory - Within Defined Parameters WNL Depth Normal Effort Non-Labored Respiratory Pattern Normal Oxygen Flow Rate 2 Bilateral Throughout Breath Sounds Clear Cough description Non-Productive Frequency Intermittent Cardiovascular - Within Defined WNL Parameters Apical Rhythm Regular Heart Sounds S1 & S2 Left Radial Pulse Strength 3+ Normal Pulse Assessment Method Palpation Left Apical Pulse Strength 3+ Normal Pulse Assessment Method Auscultation Capillary Refill < 3 Seconds Cardiovascular Comment on tele Gastroinstestinal - Within Defined Some Exceptions Parameters Abdomen Description Soft,Non-Tender Date of Last Bowel Movement 08/01/22 Elimination Rectum Stool Characteristics Not observed Bowel Sounds RLQ: Active Hypoactive RUQ: Active Hypoactive LUQ: Active Hypoactive LLQ: Active Hypoactive Bowel Pattern No Bowel Movement Genitourinary - Within Defined Some Exceptions Parameters Voiding Method Indwelling Catheter Integumentary - Within Defined WNL Parameters Skin Temperature Warm Moisture Dry Color Pale Skin Turgor Loose Integumentary Comment surgical incision HEENT - Within Defined Parameters WNL Facial Symmetry Symmetrical Female Reproductive - Within Defined WNL Parameters Document 08/12/22 08:00 [id number] (Rec: 08/12/22 16:24 [id number]) Nursing Shift Assessment Infection Criteria Present None Neurological - Within Defined Parameters Some Exceptions Patient Appearance Appropriate Motor Activity Within Normal Limits Flow of Thought Appropriate Thought Content Appropriate Affect Description Appropriate Intellect Average Suicidal Ideation Description None Paranoia No Bizarre Behavior No Patient Orientation (long list) Person,Place,Time,Name, Birthday,Year Arousable To Verbal Speech Pattern Clear Patient Behavior Appropriate,Cooperative Memory Description Intact Gag reflex response Present Bilateral Reaction Brisk All Four Limbs Muscle Strength (Extremity) Mild Weakness Muscle Strength ALL: Moderate Weakness Neurological Comment intermittent confusion, nightshift reports pt experienced hallucinations Respiratory - Within Defined Parameters WNL Depth Normal Effort Non-Labored Respiratory Pattern Normal Oxygen Flow Rate 2 Bilateral Throughout Breath Sounds Clear Cough description Non-Productive Frequency Intermittent Cardiovascular - Within Defined WNL Parameters Apical Rhythm Regular Heart Sounds S1 & S2 Left Radial Pulse Strength 3+ Normal Pulse Assessment Method Palpation Left Apical Pulse Strength 3+ Normal Pulse Assessment Method Auscultation Capillary Refill < 3 Seconds Gastroinstestinal - Within Defined Some Exceptions Parameters Abdomen Description Soft,Non-Tender Date of Last Bowel Movement 08/01/22 Elimination Rectum Stool Characteristics Not observed Bowel Sounds RLQ: Hypoactive RUQ: Hypoactive LUQ: Hypoactive LLQ: Hypoactive Bowel Pattern No Bowel Movement Genitourinary - Within Defined Some Exceptions Parameters Voiding Method Indwelling Catheter Integumentary - Within Defined WNL Parameters Skin Temperature Warm Moisture Dry Color Pale Skin Turgor Loose Integumentary Comment surgical incision HEENT - Within Defined Parameters WNL Facial Symmetry Symmetrical Female Reproductive - Within Defined WNL Parameters Document 08/12/22 20:00 FM (Rec: 08/12/22 21:55 FM [id number]) Nursing Shift Assessment Infection Criteria Present None Neurological - Within Defined Parameters Some Exceptions Patient Appearance Appropriate Motor Activity Within Normal Limits Flow of Thought Appropriate Thought Content Appropriate Affect Description Appropriate Intellect Average Suicidal Ideation Description None Paranoia No Bizarre Behavior No Patient Orientation (long list) Person,Place,Time,Name, Birthday,Year Arousable To Verbal Speech Pattern Clear Patient Behavior Appropriate,Cooperative Memory Description Intact Gag reflex response Present Bilateral Reaction Brisk All Four Limbs Muscle Strength (Extremity) Mild Weakness Muscle Strength ALL: Moderate Weakness Neurological Comment intermittent confusion, nightshift reports pt experienced hallucinations Respiratory - Within Defined Parameters WNL Depth Normal Effort Non-Labored Respiratory Pattern Normal Oxygen Flow Rate 2 Bilateral Throughout Breath Sounds Clear Cough description Non-Productive Frequency Intermittent Cardiovascular - Within Defined WNL Parameters Apical Rhythm Regular Heart Sounds S1 & S2 Left Radial Pulse Strength 3+ Normal Pulse Assessment Method Palpation Left Apical Pulse Strength 3+ Normal Pulse Assessment Method Auscultation Capillary Refill < 3 Seconds Cardiovascular Comment on tele Gastroinstestinal - Within Defined Some Exceptions Parameters Abdomen Description Soft,Non-Tender Elimination Rectum Stool Characteristics Not observed Bowel Sounds RLQ: Active Hypoactive RUQ: Active Hypoactive LUQ: Active Hypoactive LLQ: Active Hypoactive Bowel Pattern No Bowel Movement Genitourinary - Within Defined Some Exceptions Parameters Voiding Method Continent Integumentary - Within Defined WNL Parameters Skin Temperature Warm Moisture Dry Color Pale Skin Turgor Loose Integumentary Comment surgical incision HEENT - Within Defined Parameters WNL Facial Symmetry Symmetrical Female Reproductive - Within Defined WNL Parameters Document 08/13/22 08:00 KN (Rec: 08/13/22 09:05 KN [id number]) Nursing Shift Assessment Infection Criteria Present None Neurological - Within Defined Parameters Some Exceptions Patient Appearance Appropriate Motor Activity Within Normal Limits Flow of Thought Appropriate Thought Content Appropriate Affect Description Appropriate Intellect Average Suicidal Ideation Description None Paranoia No Bizarre Behavior No Patient Orientation (long list) Person,Place,Time,Name, Birthday,Year Arousable To Verbal Speech Pattern Clear Patient Behavior Appropriate,Cooperative Memory Description Intact Gag reflex response Present Bilateral Reaction Brisk All Four Limbs Muscle Strength (Extremity) Mild Weakness Muscle Strength ALL: Moderate Weakness Neurological Comment intermittent confusion, nightshift reports pt experienced hallucinations Respiratory - Within Defined Parameters WNL Depth Normal Effort Non-Labored Respiratory Pattern Normal Oxygen Flow Rate 2 Bilateral Throughout Breath Sounds Clear Cough description Non-Productive Frequency Intermittent Cardiovascular - Within Defined WNL Parameters Apical Rhythm Regular Heart Sounds S1 & S2 Left Radial Pulse Strength 3+ Normal Pulse Assessment Method Palpation Left Apical Pulse Strength 3+ Normal Pulse Assessment Method Auscultation Capillary Refill < 3 Seconds Gastroinstestinal - Within Defined Some Exceptions Parameters Abdomen Description Soft,Non-Tender Date of Last Bowel Movement 08/13/22 Elimination Rectum Stool Characteristics Not observed Bowel Sounds RLQ: Active RUQ: Active LUQ: Active LLQ: Active Bowel Pattern No Bowel Movement Genitourinary - Within Defined Some Exceptions Parameters Voiding Method Continent Integumentary - Within Defined WNL Parameters Skin Temperature Warm Moisture Dry Color Pale Skin Turgor Loose Integumentary Comment surgical incision HEENT - Within Defined Parameters WNL Facial Symmetry Symmetrical Female Reproductive - Within Defined WNL Parameters Nutritional Assessment Start: 08/09/22 10:59 Freq: Status: Active Protocol: Document 08/09/22 10:59 EG2 (Rec: 08/09/22 11:08 EG2 [id number]) Initial Nutritional Assessment Reason Assessed/Risk Criteria LOS > 5 Days Person Interviewed Medical Record Reviewed Medical Records Reviewed Yes Comments notes: Pt teary, said dying and going to heaven the best thing for her - depressed mood Med Dx: acute encephelopathy, severe intractable pain - left hip pain, left lower back pain PMH: left hip replacement, DM2 , HTN, depression, HLD, Hypothyroidism, CAD Pert meds: lioresal, Omnicef, Celebrex, Lovenox, Neurontin, Synthroid, Ativan, Zofran, Oxycodone, Zoloft Pert labs: Ph 2.4L, Glucoxe 141H Presence of Wounds/Skin Breakdown Toy 17 Lower back: ASW - open to air Estimated Nutritional Needs 65 inches, 151 lbs, IBW 125 lbs, 25.1 kg/m2 55 grams protein (0.8 g/kg BW) 5007-8850 kcals (1-1.2 MSJ) 1 ml/kcal Current Diet Order REgular Appetite Poor Appetite Comments PO intake of 1 meal x 100%, 6 meals x 25% and 7 refusals. Feeding Ability Independent Feeding Problems Other - Define Below Other Feeding Problems CLAIMS ACCOUNT SPECIALIST treatment 08/09: Patient has been attempting to eat her regular diet breakfast, however, upon entering her room, she is throwing up everything that she has eaten. She reports she has a history of difficulty with eating and has been told to eat standing up. This was offered, however, she declined . The slick diet was also tried with the patient without improvement. The patient reports the same difficulty with solids and liquids. Will contact Dr. Beal about possible esophageal assessment . Gastrointestinal Symptoms Other - Define Below Other GI Symptoms MD notes nd/nt, bs+ PES Statement Inadequate oral intake r/t possible issues w/swallowing and depression aeb CLAIMS ACCOUNT SPECIALIST report that Pt threw up everything she ate. 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/Recommendations Collaborate With Provider, Other - Define Below Intervention/ Recommendations Comments CLAIMS ACCOUNT SPECIALIST recommended consideration of swallow evaluation - agree with that and will await further results before making recommendations. Nutrition Monitoring Diet Tolerance,Diet Progression,Fluid Status, Weight Status,Lab Values,Other - Define Below Monitoring Comments WIll FU in 1-3 days or as needed. Nutritional Reassessment Start: 08/09/22 10:59 Freq: Status: Active Protocol: Document 08/12/22 13:09 EG2 (Rec: 08/12/22 13:13 EG2 [id number]) Nutritional Reassessment Person Interviewed Medical Record Reviewed Medical Records Reviewed Yes Medical Record Comments notes: Pt teary, said dying and going to heaven the best thing for her - depressed mood Med Dx: acute encephelopathy, severe intractable pain - left hip pain, left lower back pain PMH: left hip replacement, DM2 , HTN, depression, HLD, Hypothyroidism, CAD Pert meds: Omnicef, Colace, Lovenox, Neurontin, Synthroid, Ativan, Oxycodone, Miralax, Zoloft Pert labs: Hgb 11.2L, Hct 36. 4L Presence of Wounds/Skin Breakdown Toy 17 Lower back: ASW - open to air Estimated Nutritional Needs 65 inches, 151 lbs, IBW 125 lbs, 25.1 kg/m2 55 grams protein (0.8 g/kg BW) [id number] kcals (1-1.2 MSJ) 1 ml/kcal Current Diet Order REgular Appetite Good Appetite Comments PO intake of 84% from 8 recorded meals in chart review . Feeding Ability Independent Feeding Problems Other - Define Below Other Feeding Problems CLAIMS ACCOUNT SPECIALIST treatment 08/09: Patient has been attempting to eat her regular diet breakfast, however, upon entering her room, she is throwing up everything that she has eaten. She reports she has a history of difficulty with eating and has been told to eat standing up. This was offered, however, she declined . The slick diet was also tried with the patient without improvement. The patient reports the same difficulty with solids and liquids. Will contact Dr. Beal about possible esophageal assessment . Gastrointestinal Symptoms Other - Define Below Other GI Symptoms MD notes nd/nt, bs+ MD notes 08/11: no BM PES Statement Inadequate oral intake r/t possible issues w/swallowing and depression aeb CLAIMS ACCOUNT SPECIALIST report that Pt threw up everything she ate. 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/Recommendations Other - Define Below Intervention/ Recommendations Comments Please continue to encourage PO intake as Pt recovers. Will send Ensure Plus w/dinner for additional calories and protein. Nutrition Monitoring Diet Tolerance,Diet Progression,Fluid Status, Weight Status,Lab Values,Other - Define Below Monitoring Comments WIll FU in 1-3 days or as needed. OT: Daily Note Start: 08/07/22 13:48 Freq: Status: Active Protocol: Document 08/07/22 13:55 ADM (Rec: 08/07/22 13:55 ADM [id number]) Pain Assessment Pain Present Yes Left Hip Description Acute Intensity 10 Scale Used Numeric (1 - 10) Frequency Constant OT Daily Treatment Flow Sheet Time In 12:18 Time Out 13:00 Reason for Skilled Visit Requires Physical Assistance, Requires Verbal Cueing Grooming Hygiene Setup Feeding Independent Bathing Moderate Assist Lower Body Dressing Dependent Upper Body Dressing Stand By Assist Toileting Dependent Bed Mobility Moderate Assist Supine to Sit Moderate Assist Sit to Stand Max Assist Bed to/from Chair Dependent Praxis Within Functional Limits Body Schema Within Functional Limits Sitting Static Good Sitting Dynamic Fair Standing Static Poor Standing Dynamic Poor Safety Awareness Poor Functional Endurance Poor DME/Medical Equipment Walker Knowledge of Adaptive Equipment Fair Understanding Factors Limiting Function Impaired Cognition,Decreased Endurance,Pain,Poor Safety Awareness Continue Treatment Per Plan of Care Yes Therapeutic Activity 15 Therapeutic Activity-15 Minute Units 1 Document 08/08/22 15:45 ADM (Rec: 08/08/22 15:54 ADM [id number]) Pain Assessment Pain Present Yes Left Hip Description Acute,Chronic Intensity 6 Scale Used Numeric (1 - 10) Frequency Constant OT Daily Treatment Flow Sheet Time In 14:39 Time Out 15:03 Reason for Skilled Visit Requires Physical Assistance, Requires Verbal Cueing Grooming Hygiene Minimal Assist Lower Body Dressing Dependent Upper Body Dressing Minimal Assist Bed Mobility Max Assist Supine to Sit Max Assist Sit to Stand Moderate Assist Bed to/from Chair Moderate Assist Sitting Static Good Sitting Dynamic Good Standing Static Fair Standing Dynamic Fair Safety Awareness Fair Functional Endurance Poor Factors Limiting Function Decreased Strength,Impaired Cognition,Decreased Endurance, Pain,Poor Safety Awareness Summary Comments PATIENT AGREEABLE TO GROOMING IN BED. PERFORMS PER ABOVE. P.T. ENTERS AND REQUESTS TO GET PATIENT OOB. PATIENT INITIALLY REFUSES BUT IS REMINDED THAT PERFORMANCE IN THIS WILL HELP HER GET BETTER. SHE AGREES TO SIT EOB AND EVENTUALLY TO RECLINER. PATIENT PERFORMANCE WITH NOTED IMPROVEMENT TODAY. PATIENT WOULD BENEFIT FROM CONTINUED SKILLED OT TO ADDRESS DEFICITS IN ADL/MRADL, GENERALIZED MX WEAKNESS, IMPAIRED COGNITION AND DECREASED ENDURANCE. Continue Treatment Per Plan of Care Yes Therapeutic Activity 24 Therapeutic Activity-15 Minute Units 2 Document 08/09/22 16:15 MAC (Rec: 08/09/22 16:28 MAC [id number]) Pain Assessment Pain Present No OT Daily Treatment Flow Sheet Time In 15:50 Time Out 16:25 Reason for Skilled Visit Requires Physical Assistance, Requires Verbal Cueing Grooming Hygiene Setup Functional Endurance Fair Factors Limiting Function Decreased Strength,Decreased Endurance,Poor Safety Awareness Upper Extremity Bilateral Upper Exremity Exercise strengthening exercise # Sets 6 # Repetitions 10 Exercise Tolerance Fair Continue Treatment Per Plan of Care Yes Other PT LYING IN BED. PT STATES I PUT MYSELF BACK TO BED CAUSE I WAS SO DIZZY . PT REMINDED WHEN SHE IS DIZZY IS NOT WHEN SHE SHOULD BE GETTING UP BY HERSELF. PT STATES I DID A GOOD JOB . PT DECLINES OUT OF BED AT THIS TIME BUT SHE IS AGREEABLE TO GROOMING AND B UE STRENGTHENING EXERCISE FROM BED LEVEL. SEE ABOVE FOR ASSISTANCE LEVELS. PT WASHES FACE/HANDS WITH CLOTH PROVIDED SHE DECLINES BRUSHING HAIR OR ORAL CARE. SHE PERFORMS B UE EXERCISE IN ALL PLANES TO INCREASE STRENGTH/ENDURANCE WITH 1# RESISTANCE BALL. PT REQUIRES SHORT REST PERIOD BETWEEN EACH SET. PT REPORTS I DID NOT VOMIT TODAY AND I AM FEELING BETTER . PT LEFT IN BED WITH CALL LIGHT AND NEEDS IN REACH. CONTINUE OT SERVICES TO INCREASE STRENGTH/ ENDURANCE FOR ADL SELF CARE PERFORMANCE AND SAFE FUNCTIONAL MOBILITY. PT COULD BENEFIT FROM SNF PLACEMENT DUE TO COGNITIVE DEFICITS AND DECONDITIONING PREVENTING SAFE INDEPENDENT SELF CARE AND FUNCTIONAL MOBILITY AT THIS TIME. Therapeutic Exercise 20 Therapeutic Exercise-15 Minute Units 1 ADL Training 15 ADL Units-15 Minute Units 1 Document 08/12/22 12:58 ADM (Rec: 08/12/22 13:01 ADM [id number]) Pain Assessment Pain Present No OT Daily Treatment Flow Sheet Time In 11:24 Time Out 11:40 Reason for Skilled Visit Requires Physical Assistance, Requires Verbal Cueing Grooming Hygiene Minimal Assist Safety Awareness Poor Functional Endurance Fair Factors Limiting Function Decreased Strength,Impaired Cognition,Decreased Endurance, Poor Safety Awareness Summary Comments PATIENT IS AGREEABLE TO A.M. OT TREATMENT. GROOMING PERFORMED IN BED. MINIMAL ASSIST FOR HAIR WASHING AND BRUSHING DENTURES BY THERAPIST AT THE SINK. PATIENT PERFORMS REMAINDER OF GROOMING WITH SET-UP. Continue Treatment Per Plan of Care Yes ADL Training 16 ADL Units-15 Minute Units 1 Document 08/13/22 12:54 ADM (Rec: 08/13/22 12:58 ADM [id number]) Pain Assessment Pain Present No OT Daily Treatment Flow Sheet Time In 10:47 Time Out 11:00 Reason for Skilled Visit Requires Verbal Cueing Grooming Hygiene Setup Sit to Stand Modified Independent Gait Assistance for ADLs Contact Guard Assist Sitting Static Good Sitting Dynamic Good Standing Static Good Standing Dynamic Fair Safety Awareness Fair Functional Endurance Fair DME/Medical Equipment Walker Knowledge of Adaptive Equipment Fair Understanding Factors Limiting Function Impaired Cognition,Decreased Endurance,Poor Safety Awareness Summary Comments PATIENT IS AGREEABLE TO A.M. OT TREATMENT. IS AMBULATING WITH P.T. IN HER ROOM. AGREEABLE TO STOP AT SINK FOR GROOMING TASK. PERFORMS Lisa WITH SET-UP. AMBULATES TO THE CHAIR FOR LUNCH. IS LEFT WITH ALL NEEDS IN REACH AND CALL LIGHT. INFORMED TO NOT GET UP WITH OUT ASSISTANCE. VERBALIZES UNDERSTANDING. Continue Treatment Per Plan of Care Yes ADL Training 13 ADL Units-15 Minute Units 1 OT: Evaluation Start: 08/07/22 13:48 Freq: Status: Active Protocol: Document 08/07/22 13:48 ADM (Rec: 08/07/22 13:55 ADM [id number]) OT: Evaluation General Time In 12:18 Time Out 13:00 Onset Date 08/04/22 Medical/Treatment Diagnosis 1. SEVERE L HIP PAIN- INTRACTABLE 2. L LOW BACK PAIN-INTRACTABLE 3. ACUTE ENCEPHALOPATHY Medical History Reviewed by Therapist Yes Precautions/Isolation Fall Prevention Past Medical History CAD; S/P STENTING X2, HYPOTHYROIDISM, HTN, NEPHROLITHIASIS, DEPRESSION, DM TYPE 2, L3/4 LAMINECTOMY WITH PARTIAL FASCIOTOMIES ON 08/02/22, L HIP REPLACEMENT WITH REVISION, HYPERLIPIDEMIA, STENOSIS WITH NEUROGENIC CLAUDATION Lives With Self Activities of Daily Living Within Functional Limits Prior ROM Within Functional Limits History Obtained From PATIENT/CHART Current Living Environment PATIENT STATES SHE LIVES ALONE ADL: INDEPENDENT DME; PWC-USES MOST, FWW, SHOWER CHAIR Memory Fair Ability to Learn Fair Comment BIMS: 14 Orientation Lethargic Patient Orientation Person,Place Praxis Within Functional Limits Body Schema Within Functional Limits Bilateral ROM Ability Within Functional Limits Strength Within Functional Limits Gross Motor Coordination Within Functional Limits Fine Motor Coordination Within Functional Limits Trunk/Core ROM/Strength Within Functional Limits Sitting Static Good Sitting Dynamic Fair Standing Static Poor Standing Dynamic Poor Grooming Hygiene Setup Feeding Independent Bathing Moderate Assist Lower Body Dressing Dependent Upper Body Dressing Stand By Assist Toileting Dependent Bed Mobility Moderate Assist Supine to Sit Moderate Assist Sit to Stand Max Assist Bed to/from Chair Dependent DME/Medical Equipment Walker Knowledge of Adaptive Equipment Fair Understanding Factors Limiting Function Impaired Cognition,Decreased Endurance,Pain,Poor Safety Awareness Safety Awareness Poor Functional Endurance Poor Evaluation Completed OT Tx Indicated See CP Inpatient Eval Comment PATIENT DIFFICULT TO AWAKEN BUT DOES AGREE TO PARTICIPATE IN PT/OT EVALUATION. PERFORMS PER ABOVE. PATIENT IS UNABLE TO STAND BUT JUST FOR A FEW SECONDS; 20 BEFORE C/O EXCRUCIATING L LEG PAIN AND DEMANDS TO SIT BACK DOWN/LIE DOWN. PATIENT IS NOT SAFE FOR RETURN HOME AT THIS TIME DUE TO INABLITY TO CARE FOR HERSELF OR AMBULATE IN HER HOME AT ALL . RECOMMEND SNF PLACEMENT FOR D/ C DUE TO THIS. EXPLAINED THIS TO PATIENT AND SHE IS RELUCTANTLY AGREEABLE. PATIENT SCORED 14 ON BIMS BUT IS CONFUSED ABOUT HER BACK SURGERY LAST WEEK WHICH SHE INSISTS WAS HIP SURGERY. ALSO APPEARS TO GET CONFUSED WITH QUESTIONS ASKED. PATIENT WOULD BENEFIT FROM CONTINUED SKILLED OT TO ADDRESS DEFICITS IN ADL/MRADL, GENERALIZED MX WEAKNESS, PAIN , IMPAIRED COGNITION AND DECREASED ENDURANCE. Left Hip Pain Present Yes Pain Intensity 10 Pain Scale Used Numeric (1 - 10) Pain Frequency constant Pain Duration 1-2 weeks Pain Characteristic aching,sharp Response to Intervention No Change Nursing Notified Yes OT Evaluation-High Minutes 27 OT Evaluation-High Unit 1 OT: Treatment Plan Start: 08/07/22 13:48 Freq: Status: Active Protocol: Document 08/07/22 13:55 ADM (Rec: 08/07/22 13:57 ADM [id number]) OT Treatment Plan OT Problems Impaired ADLs/Self Care, Impaired Functional Endurance, Impaired Functional Mobility, Impaired Cognitive Skills Improve ADL/Self Care To Stand By Assist ADL's Self Care Comment WILL PERFORM GROOMING SEATED AT EOB OR IN CHAIR WITH I PERFORM TOILETING WITH SBA Improve Functional Mobilty Min Assist Functional Mobility 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 ADL Transfers,Trunk Core Strength,Posture/Balance Improve Functional Endurance Fair Improve Functional Endurance Comment TOLERATE 15 MINUTE FUNCTIONAL TASK WITH FAIR ENDURANCE FOR TASK IN 2/3 TRIALS. Frequency Other Duration 2 Weeks Rehab Potential Fair to Achieve Goals Comments/Recommendations 3X WEEK FRIDAY-FRIDAY Discharge Plan Unsure At This Time Pain Reassessment Start: 08/04/22 05:23 Freq: Q6HR Status: Active Protocol: Document 08/04/22 08:29 (2) (Rec: 08/04/22 08:30 (2) [id number]) Pain Reassessment Pain Present Yes Left Hip Intensity 6 Scale Used Numeric (1 - 10) Document 08/04/22 14:24 (2) (Rec: 08/04/22 14:24 (2) [id number]) Pain Reassessment Pain Present No Left Hip Intensity 0 Scale Used FLACC Pain Reassessment Start: 08/04/22 15:41 Freq: Q6HR Status: Active Protocol: Document 08/04/22 18:00 CB (Rec: 08/04/22 18:36 CB [id number]) Pain Reassessment Pain Present Yes Left Hip Intensity 9 Scale Used Numeric (1 - 10) Pain Alleviating Factors Medication,Changing Position, Darkened Room,Distraction Document 08/05/22 00:00 SC (Rec: 08/05/22 01:15 MI [id number]) Pain Reassessment Left Hip Scale Used resting quietly Document 08/05/22 06:00 SC (Rec: 08/05/22 06:39 MI [id number]) Pain Reassessment Left Hip Scale Used resting quietly Document 08/05/22 12:00 (Rec: 08/05/22 13:18 [id number]) Pain Reassessment Pain Present No Document 08/05/22 18:00 (Rec: 08/05/22 19:09 [id number]) Pain Reassessment Pain Present No Document 08/06/22 00:00 SC (Rec: 08/06/22 01:36 MI [id number]) Pain Reassessment Left Hip Scale Used resting quietly Document 08/06/22 06:00 SC (Rec: 08/06/22 06:10 SC [id number]) Pain Reassessment Pain Present No Document 08/06/22 12:13 (Rec: 08/06/22 12:14 [id number]) Pain Reassessment Pain Present Yes Left Hip Intensity 5 Scale Used Numeric (1 - 10) Pain Alleviating Factors Medication Document 08/06/22 17:55 (Rec: 08/06/22 18:02 [id number]) Pain Reassessment Pain Present No Document 08/07/22 00:00 SC (Rec: 08/07/22 06:13 SC [id number]) Pain Reassessment Left Hip Scale Used resting quietly Document 08/07/22 06:00 SC (Rec: 08/07/22 06:13 SC [id number]) Pain Reassessment Left Hip Scale Used resting quietly Document 08/07/22 12:00 LB (Rec: 08/07/22 14:54 LB [id number]) Pain Reassessment Pain Present No Document 08/07/22 18:00 LB (Rec: 08/07/22 19:47 LB [id number]) Pain Reassessment Pain Present No Document 08/07/22 23:54 AC (Rec: 08/07/22 23:55 AC [id number]) Pain Reassessment Pain Present Yes Left Hip Intensity 8 Scale Used Bryan-Ellington (Faces) Document 08/08/22 06:00 AC (Rec: 08/08/22 06:14 AC [id number]) Pain Reassessment Pain Present Yes Left Hip Intensity 4 Scale Used FLACC Document 08/08/22 12:00 LB (Rec: 08/08/22 19:50 LB [id number]) Pain Reassessment Pain Present No Document 08/08/22 18:00 LB (Rec: 08/08/22 19:50 LB [id number]) Pain Reassessment Pain Present No Document 08/09/22 00:00 AC (Rec: 08/09/22 01:17 AC [id number]) Pain Reassessment Pain Present No Left Hip Intensity 5 Scale Used FLACC Document 08/09/22 06:00 AC (Rec: 08/09/22 06:10 AC [id number]) Pain Reassessment Pain Present No Left Hip Intensity 4 Scale Used FLACC Document 08/09/22 12:00 SK (Rec: 08/09/22 19:15 SK [id number]) Pain Reassessment Pain Present Yes Left Hip Intensity 3 Scale Used Numeric (1 - 10) Document 08/09/22 18:00 SK (Rec: 08/09/22 19:15 SK [id number]) Pain Reassessment Pain Present Yes Left Hip Intensity 3 Scale Used Numeric (1 - 10) Document 08/10/22 00:00 AC (Rec: 08/10/22 00:28 AC [id number]) Pain Reassessment Pain Present Yes Left Hip Intensity 3 Scale Used Numeric (1 - 10) Document 08/10/22 05:38 AC (Rec: 08/10/22 05:38 AC [id number]) Pain Reassessment Pain Present Yes Left Hip Intensity 3 Scale Used Numeric (1 - 10) Document 08/10/22 12:00 [id number] (Rec: 08/10/22 16:35 MCGHA2 [id number]) Pain Reassessment Pain Present No Left Hip Intensity 0 Scale Used Numeric (1 - 10) Document 08/10/22 16:36 MCGHA2 (Rec: 08/10/22 16:36 MCGHA2 [id number]) Pain Reassessment Pain Present No Left Hip Intensity 0 Scale Used Numeric (1 - 10) Document 08/11/22 00:00 EM (Rec: 08/11/22 03:17 EM [id number]) Pain Reassessment Pain Present No Document 08/11/22 06:00 EM (Rec: 08/11/22 06:48 EM [id number]) Pain Reassessment Pain Present No Document 08/11/22 12:00 MCGHA2 (Rec: 08/11/22 16:51 MCGHA2 [email or web address]) Pain Reassessment Pain Present No Left Hip Intensity 0 Scale Used Numeric (1 - 10) Document 08/11/22 16:52 MCGHA2 (Rec: 08/11/22 16:52 MCGHA2 [id number]) Pain Reassessment Pain Present No Left Hip Intensity 0 Scale Used Numeric (1 - 10) Document 08/11/22 23:12 FM (Rec: 08/11/22 23:12 FM [id number]) Pain Reassessment Pain Present No Document 08/12/22 05:11 FM (Rec: 08/12/22 05:11 FM [id number]) Pain Reassessment Pain Present No Document 08/12/22 12:00 MCGHA2 (Rec: 08/12/22 16:26 MCGHA2 [id number]) Pain Reassessment Pain Present No Left Hip Intensity 0 Scale Used Numeric (1 - 10) Document 08/12/22 17:22 MCGHA2 (Rec: 08/12/22 17:22 MCGHA2 [id number]) Pain Reassessment Pain Present No Left Hip Intensity 0 Scale Used Numeric (1 - 10) Document 08/12/22 23:51 FM (Rec: 08/12/22 23:51 FM [id number]) Pain Reassessment Pain Present No Document 08/13/22 05:48 FM (Rec: 08/13/22 05:48 FM [id number]) Pain Reassessment Pain Present No Patient Belongings Start: 08/04/22 15:41 Freq: ONCE Status: Active Protocol: Document 08/04/22 15:41 CB (Rec: 08/04/22 16:14 CB [id number]) Patient Belongings Belongings With Patient on Admission Yes At Bedside Patient Belongings Clothing Patient Safety Check Start: 08/04/22 05:23 Freq: QSHIFT Status: Discharge Protocol: Document 08/04/22 08:29 (2) (Rec: 08/04/22 08:30 (2) [id number]) Daily Patient Safety Safety 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 ID band verified/on Personal Hygiene Assessment Start: 08/04/22 15:41 Freq: NEEDED Status: Active Protocol: Document 08/09/22 12:08 CR (Rec: 08/09/22 12:08 CR [id number]) Hygiene Assessment Hygiene Care Performed Martha Care,Linen Change Bathing Type Comfort Bath Pack Bathing Ability 1 Person Assist Any Reddened Areas Noted No Physical Assessment Start: 08/04/22 15:41 Freq: ONCE Status: Complete Protocol: Document 08/04/22 15:41 CB (Rec: 08/04/22 16:14 CB [id number]) Neurological Assessment Eye Opening Spontaneous Verbal Response Orientated Motor Response Obey Commands [place] Coma Scale Total 15 Patient orientation (short list) Person,Place,Time,Situation Speech Pattern Appropriate,Clear Cardiovascular Assessment Apical Rhythm Regular Capillary Refill < 3 Seconds Respiratory Assessment Effort Spontaneous,Non-Labored Depth Normal Respiratory Pattern Normal Expansion Symmetrical Bilateral Throughout Breath Sounds Clear Oxygen Delivery Method Nasal Cannula Cough Description Croupy Sputum Amount None Gastrointestinal Assessment Gastrointestinal Symptoms None Abdomen Description Flat,Soft,Non-Tender Bowel Sounds RLQ: Active RUQ: Active LUQ: Active LLQ: Active Bowel Pattern Regular Flatus Presence Yes Bowel Movement Frequency Every 2-4 Days Bowel Movement Method Toilet Genitourinary Assessment Genitourinary Symptoms Difficulty Urinating Voiding Method Indwelling Catheter Urine Appearance Clear Color Dark Stefani Odor Normal Female Reproductive Patient No Currently No Integumentary Assessment Skin Temperature Warm Skin Moisture Dry Skin Turgor Loose Musculoskeletal Assessment Musculoskeletal Symptoms Limited Range of Motion, Difficulty Walking,Arthralgias ,Radiating Pain into Limb, Muscle Cramps Abuse and Neglect Screening Exploitation No Any Indication of Neglect by Self No Any Indication of Neglect by Caregiver No Any Indication of Abuse No Physical Therapy Bill Sheet Start: 08/07/22 20:02 Freq: Status: Active Protocol: Document 08/07/22 20:17 [facility] (Rec: 08/07/22 20:18 [facility] [id number]) PT Bill Sheet Therapeutic Activity (minutes) 15 Therapeutic Activity - 15 Minute Units 1 Evaluation - Low (minutes) 15 Evaluation - Low Unit 1 Document 08/08/22 15:19 PFM (Rec: 08/08/22 15:24 PFM [id number]) PT Bill Sheet Therapeutic Activity (minutes) 20 Therapeutic Activity - 15 Minute Units 1 Document 08/09/22 14:57 PFM (Rec: 08/09/22 15:01 PFM [id number]) PT Bill Sheet Therapeutic Exercise (minutes) 10 Therapeutic Exercise - 15 Minute Units 1 Therapeutic Activity (minutes) 15 Therapeutic Activity - 15 Minute Units 1 Document 08/12/22 13:28 JLS (Rec: 08/12/22 13:31 JLS [id number]) PT Bill Sheet Therapeutic Activity (minutes) 10 Therapeutic Activity - 15 Minute Units 1 Document 08/13/22 11:47 JLS (Rec: 08/13/22 11:50 JLS [id number]) PT Bill Sheet Therapeutic Activity (minutes) 10 Therapeutic Activity - 15 Minute Units 1 Physical Therapy Inpatient Evaluation Start: 08/07/22 20:02 Freq: Status: Active Protocol: Document 08/07/22 20:03 [facility] (Rec: 08/07/22 20:17 [facility] [id number]) Inpatient History/Precautions Time In 12:25 Time Out 12:50 Treatment Diagnosis Debility,Weakness Medical History Reviewed Yes Prior Mobility Level Lives alone, independent with transfers from bed to bedside commode, or electric wheelchair which is her primary mobility, and has been for quite some time. 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 Type of Dwelling Single Family Home Lives With: Alone Physical Barriers in Home Environment Ramp Employment Status Unemployed Patient Orientation Person,Place Subjective Patient is supine in bed and agreeable to PT and OT evaluation at this time, has received pain medicine. Patient minimally tolerable of left hip range of motion, passively and actively, but she did demonstrate great effort and determination during bed mobility, and attempted ambulation with walker, 3 attempts at ambulation were made, but patient unable to achieve ambulation, or pivot transfer with walker due to uncontrolled pain at left hip, even with nonweightbearing attempted. Patient appears quite confused, stating she has not had back surgery, and yet the dressing is intact and dry. Post 3 attempts at up in chair, returned patient to bed, and encouraged gentle left lower extremity heel slides and ankle pumps. Positioned patient to her comfort with call light in reach. Discussed all above with patient physician and nursing staff. Patient currently unable to return home alone, and will need placement, but may benefit also from pain clinic attendance, to address left hip pain. Pain Assessment Pain Present Yes Left Hip Description Acute,With Movement Intensity 8 Scale Used Bryan-Ellington (Faces) Frequency Positional changes and weightbearing activities Strength Comment Strength Comment Left hip pain limited, grossly 2/5; otherwise grossly 4 -/4/ 5 throughout ROM Comment ROM Comment Within functional limits for transfers and ambulation Bed Mobility Assessment Overall Bed Mobility Ability Minimum Assistance,Moderate Assistance Bed Transfer Assessment Sit to Stand Bed Transfer Ability Moderate Assistance Stand to Sit Bed Transfer Ability Minimum Assistance Balance Assessment Balance Assessment Comments Patient demonstrated fair plus sitting balance, and fair standing balance, but only briefly at walker due to pain of left hip Ambulation Assessment Ambulation Ability Comments Unable to achieve ambulation due to left hip pain Physical Therapy Treatment Plan How many times a day is patient [id number] recieving PT? Rehabilitation Potential Fair Goals Patient to perform supine sit/ stand pivot transfers with minimal assistance of 1 person Goals Set with Patient No: Patient confusion Treatment Plan Therapeutic Exercise, Therapeutic Activities Treatment Initiated Today Patient is supine in bed and agreeable to PT and OT evaluation at this time, has received pain medicine. Patient minimally tolerable of left hip range of motion, passively and actively, but she did demonstrate great effort and determination during bed mobility, and attempted ambulation with walker, 3 attempts at ambulation were made, but patient unable to achieve ambulation, or pivot transfer with walker due to uncontrolled pain at left hip, even with nonweightbearing attempted. Patient appears quite confused, stating she has not had back surgery, and yet the dressing is intact and dry. Post 3 attempts at up in chair, returned patient to bed, and encouraged gentle left lower extremity heel slides and ankle pumps. Positioned patient to her comfort with call light in reach. Discussed all above with patient physician and nursing staff. Patient currently unable to return home alone, and will need placement, but may benefit also from pain clinic attendance, to address left hip pain. Discharge Plan Discharge Planning [facility] Rehab Potential Fair to Achieve Goals Discussed Benefits of PT with Patient/ Yes Family Discussed Risks & Benefits of NOT Yes Participating in PT Patient/Family Agree With Plan of Care Yes Physical Therapy Inpt Daily Note/Assess Start: 08/07/22 20:02 Freq: Status: Active Protocol: Document 08/08/22 10:43 [facility] (Rec: 08/08/22 10:45 [facility] [id number]) PT Time In and Out Time In 10:05 Subjective Assessment Subjective Pt (R) sidelying in bed, awake and alert, responds to name. States that she will not be getting up and not participating in therapy because it hurts too bad. Education provided on improtance of increased mobility for pain reduction and to reduce risk of pnuemonia. Pt acknowledge but continues to adamantly refuse participation. States that she is waiting to see her surgeon and that she might be having another surgery. No treatment provided per pt's decision. Document 08/08/22 15:19 PFM (Rec: 08/08/22 15:24 PFM [id number]) PT Time In and Out Time In 14:45 Time Out 15:05 Subjective Assessment Subjective pt working with OT, encouraged pt up to EOB which she agreed to attempt. Pain Assessment Pain Present Yes Left Hip Description With Movement,Aching,Sore Intensity 6 Scale Used Numeric (1 - 10) Frequency Intermittent Physical Therapy Daily Note/Assessment Other Other Exercise sitting / standing tolerance Side Bilateral Supine to Sit Moderate Assist,2 Person Assist,Verbal Cueing Sit to Stand Maximum Assist,Verbal Cueing Stand to Sit Moderate Assist,Verbal Cueing Weight Bearing Status Full Weight Bearing Ambulation Assistive Device Wheeled Walker Ambulation Distance (feet) 2 Ambulation Ability Moderate Assistance Factors Limiting Function Decreased Strength,Pain Daily Note Summary Patient somewhat agreeable still very hesitant states that Told her that her hip and femur hardware has loosened and they are attempting to find a physician to fix this. Patient has been warned that he may break during surgery. Encourage patient to move and discussed the difference between mobility and surgery risks for fracture due to osteoporosis. Patient sat edge of bed with mod assist of 2 stood with max assist secondary to patient having difficulty putting weight through good leg once understood this patient able to stand and stand unsupported x20 seconds then shuffle step to bedside chair. Patient up in chair with legs elevated nursing present and call light at hand Document 08/09/22 14:57 PFM (Rec: 08/09/22 15:01 PFM [id number]) PT Time In and Out Time In 14:25 Time Out 14:50 Subjective Assessment Subjective pt agreeable to therapy, though once up in chair c/o of dizziness that she states has been chronic for awhile Pain Assessment Pain Present Yes Left Hip Description With Movement,Aching,Sore Intensity 4 Scale Used Bryan-Ellington (Faces) Frequency Frequent Physical Therapy Daily Note/Assessment Other Other Exercise AP, QS/GS, HS, resisted leg press (R>L) Supine to Sit Contact Guard Assist Sit to Stand Moderate Assist,Maximum Assist ,Verbal Cueing Stand to Sit Moderate Assist,Verbal Cueing Bed to Chair Maximum Assist,Verbal Cueing Weight Bearing Status Weight Bear as Tolerated Ambulation Assistive Device Wheeled Walker Ambulation Distance (feet) 2 Ambulation Ability Moderate Assistance Daily Note Summary shuffle step to bedside chair with retrograde posturing and pulling up/back on FWW. up in chair with BP checked 132/71, O2 89%, increased O2 from 1L to 2 L/min with 95% saturation . pt has call light and nursing notified. no verbal c/ o of pain during treatment. Document 08/12/22 13:28 JLS (Rec: 08/12/22 13:31 [facility] [id number]) PT Time In and Out Time In 12:05 Time Out 12:15 Subjective Assessment Subjective Pt up in room, ambulating back to bed from restroom. Nursing present in room. Pt agreeable to therapy at this time though still appears somewhat confused. Physical Therapy Daily Note/Assessment Other Other Exercise gait, STS, transfer training Sit to Stand Contact Guard Assist Stand to Sit Contact Guard Assist Weight Bearing Status Weight Bear as Tolerated Ambulation Assistive Device Non-Skid Footwear,Wheeled Walker Ambulation Distance (feet) 10 Ambulation Ability Standby Assistance,Minimum Assistance Factors Limiting Function Decreased Attention,Decreased Endurance,Decreased Strength, Pain,Poor Safety Awareness Daily Note Summary Pt ambulated 10' with WW, noted (B)flexed knees and forward flexed posture with WW , poor technique and safety awarness. However, this is the first that pt has been observed ambulating more than transfer with therapy. Pt declines gait over to chair but instead wants to sit EOB, agreeable to sit up in chair for lunch. Yard Switch Operator moved recliner near pts location. Pt performed STS with CGA and transferred to recliner. Able to scoot self back as needed for safe positioning. Returned chair to bedside for safety. Provided blankets and call light per pt requests. Pt would benefit from continued skilled therapy to improve strength, mobility, and safe independence. Document 08/13/22 11:47 [facility] (Rec: 08/13/22 11:50 [facility] [id number]) PT Time In and Out Time In 10:45 Time Out 10:55 Subjective Assessment Subjective Pt sidelying in bed, nursing wakes pt though difficult to rouse. Pt agreeable to out of bed with therapy. Nursing reports that pt did ambulate to restroom earlier in shift. Physical Therapy Daily Note/Assessment Other Other Exercise bed mobility, STS, gait Supine to Sit Contact Guard Assist Sit to Stand Contact Guard Assist,Verbal Cueing Stand to Sit Contact Guard Assist,Verbal Cueing Weight Bearing Status Weight Bear as Tolerated Ambulation Assistive Device Non-Skid Footwear,Wheeled Walker Ambulation Distance (feet) 35 Ambulation Ability Standby Assistance,Minimum Assistance Factors Limiting Function Decreased Attention,Decreased Endurance,Decreased Strength, Pain,Poor Safety Awareness Daily Note Summary Began treatment with bed mobility, pt uses bedrail and CGA to move from supine to sitting EOB. Assisted pt with adjusting socks for safety. STS from EOB and ambulation in hallway for total of 35'. Posture slightly improved but pt relates that she cannot walk far. Explains she has been using an electric chair at home to get around inside her house as well as in the community. OT arrived toward end of treatment and requests pt to remain at sink. Pt left in standing with gait belt at sink with OT present. Pt does not appear to have adequate safety awareness for return home alone. Pt would benefit from continued skilled therapy to improve strength, mobility , and return to prior level of independence. Place Urinary Catheter Start: 08/04/22 15:12 Freq: NOW Status: Complete Protocol: Document 08/04/22 15:13 (2) (Rec: 08/04/22 15:14 (2) [id number]) Urinary Catheter Placement Catheter Present on Admission No Sarmiento Date of Insertion 08/04/22 Time of Insertion 15:13 Catheter Size (Fijian) 12 Catheter Balloon Amount (ml) 10 Amount of Urine Returned 100 Aseptic Technique Used Yes Sarmiento Kit Used Tray, 16FR Catheter Used 12 FR Record Home Medications and Pharmacy Start: 08/04/22 15:41 Freq: ONCE Status: Complete Protocol: Document 08/04/22 15:41 CB (Rec: 08/04/22 16:14 CB [id number]) Record Past Medical, Family & Social Hx Start: 08/04/22 15:41 Freq: ONCE Status: Complete Protocol: Document 08/04/22 15:41 CB (Rec: 08/04/22 16:14 CB [id number]) Record or Confirm Allergies Start: 08/04/22 15:41 Freq: ONCE Status: Complete Protocol: Document 08/04/22 15:41 CB (Rec: 08/04/22 16:14 CB [id number]) Remove Urinary Catheter Start: 08/11/22 10:09 Freq: NOW Status: Complete Protocol: CAUTI.PROT Document 08/11/22 10:09 [email or web address] (Rec: 08/11/22 16:50 MCGHA2 [id number]) Rounding, Activity and Turn Assessment Start: 08/04/22 15:41 Freq: Q1HR Status: Active Protocol: Document 08/04/22 16:00 CB (Rec: 08/04/22 16:19 CB [id number]) Patient Rounding Patient Rounding Activity Resting in Bed Patient Rounds Pain,Potty,Position,Medication Environmental Check Room Neat,Table Within Reach, No Linen on Floor,Bed Alarm Reset,Call Light in Reach, Rails up X 2 Activity/Position Turn and Reposition Every 2 Hours,At Patient's Request,Turned Self Level of [place] Independent,Minimum Assistance ,1 Person Assist Skin Measures 30 Degree Lateral Position, Lift Sheet Used,Pillows Placed Patient Activity Bedrest Activity Ability Minimum Assistance,1 Person Assist Tolerates Activity Fair Document 08/04/22 17:00 CB (Rec: 08/04/22 18:34 CB [id number]) Patient Rounding Patient Rounding Activity Resting in Bed Patient Rounds Pain,Potty,Position,Medication Environmental Check Room Neat,Table Within Reach, No Linen on Floor,Bed Alarm Reset,Call Light in Reach, Rails up X 2 Activity/Position Turn and Reposition Every 2 Hours,At Patient's Request,Turned Self Patient Position Right Side Lying Level of [place] Independent,Minimum Assistance Skin Measures 30 Degree Lateral Position, Lift Sheet Used,Pillows Placed ,Pressure Reduction Surface Patient Activity Bedrest Activity Ability Independent,Minimum Assistance Tolerates Activity Fair Document 08/04/22 18:00 CB (Rec: 08/04/22 18:36 CB [id number]) Patient Rounding Patient Rounding Activity Resting in Bed Patient Rounds Pain,Potty,Position,Medication Environmental Check Room Neat,Table Within Reach, No Linen on Floor,Bed Alarm Reset,Call Light in Reach, Rails up X 2 Activity/Position Turn and Reposition Every 2 Hours,At Patient's Request,Turned Self Patient Position Right Side Lying Level of [place] Independent,Minimum Assistance Skin Measures 30 Degree Lateral Position, Lift Sheet Used,Pillows Placed ,Pressure Reduction Surface Patient Activity Bedrest Activity Ability Independent,Minimum Assistance Tolerates Activity Fair Document 08/04/22 19:00 CB (Rec: 08/04/22 19:12 CB [id number]) Co-signed By Abbey Desir RN Patient Rounding Patient Rounding Activity Resting in Bed Patient Rounds Pain,Potty,Position,Medication Environmental Check Room Neat,Table Within Reach, No Linen on Floor,Bed Alarm Reset,Call Light in Reach, Rails up X 2 Activity/Position Turn and Reposition Every 2 Hours,At Patient's Request,Turned Self Patient Position Right Side Lying Level of [place] Independent,Minimum Assistance Skin Measures 30 Degree Lateral Position, Lift Sheet Used,Pillows Placed ,Pressure Reduction Surface Patient Activity Bedrest Activity Ability Independent,Minimum Assistance Tolerates Activity Fair Document 08/04/22 20:00 EC2 (Rec: 08/04/22 21:26 EC2 [id number]) Patient Rounding Patient Rounding Activity Resting in Bed Patient Rounds Potty,Position Environmental Check Room Neat,Table Within Reach, Commode Empty,No Linen on Floor,Bed Alarm Reset,Call Light in Reach,Rails up X 2 Document 08/04/22 21:00 EC2 (Rec: 08/05/22 01:01 EC2 [id number]) Patient Rounding Patient Rounding Activity Resting in Bed Patient Rounds Potty,Position Environmental Check Room Neat,Table Within Reach, Commode Empty,No Linen on Floor,Bed Alarm Reset,Call Light in Reach,Rails up X 2 Document 08/04/22 22:00 EC2 (Rec: 08/05/22 01:02 EC2 [id number]) Patient Rounding Patient Rounding Activity Resting in Bed Patient Rounds Potty,Position Environmental Check Room Neat,Table Within Reach, Commode Empty,No Linen on Floor,Bed Alarm Reset,Call Light in Reach,Rails up X 2 Document 08/04/22 23:00 EC2 (Rec: 08/05/22 01:02 EC2 [id number]) Patient Rounding Patient Rounding Activity Resting in Bed Patient Rounds Potty,Position Environmental Check Room Neat,Table Within Reach, Commode Empty,No Linen on Floor,Bed Alarm Reset,Call Light in Reach,Rails up X 2 Document 08/05/22 00:00 EC2 (Rec: 08/05/22 01:02 EC2 [id number]) Patient Rounding Patient Rounding Activity Resting in Bed Patient Rounds Potty,Position Environmental Check Room Neat,Table Within Reach, Commode Empty,No Linen on Floor,Bed Alarm Reset,Call Light in Reach,Rails up X 2 Document 08/05/22 01:00 EC2 (Rec: 08/05/22 01:02 EC2 [id number]) Patient Rounding Patient Rounding Activity Resting in Bed Patient Rounds Potty,Position Environmental Check Room Neat,Table Within Reach, Commode Empty,No Linen on Floor,Bed Alarm Reset,Call Light in Reach,Rails up X 2 Document 08/05/22 02:00 SC (Rec: 08/05/22 03:16 MI [id number]) Patient Rounding Patient Rounding Activity Resting in Bed Environmental Check Table Within Reach,No Linen on Floor,Call Light in Reach, Rails up X 2 Activity/Position Refused Turn and Reposition Yes Patient Position Supine Document 08/05/22 03:00 SC (Rec: 08/05/22 03:33 MI [id number]) Patient Rounding Patient Rounding Activity Resting in Bed Patient Rounds Pain,Potty,Position Environmental Check Table Within Reach,No Linen on Floor,Call Light in Reach, Rails up X 2 Activity/Position Refused Turn and Reposition Yes Patient Position Supine Document 08/05/22 04:00 EC2 (Rec: 08/05/22 05:02 EC2 [id number]) Patient Rounding Patient Rounding Activity Resting in Bed Patient Rounds Potty,Position Environmental Check Room Neat,Table Within Reach, Commode Empty,No Linen on Floor,Call Light in Reach, Rails up X 2 Document 08/05/22 05:00 SC (Rec: 08/05/22 05:31 MI [id number]) Patient Rounding Patient Rounding Activity Resting in Bed Patient Rounds Pain,Potty,Position Environmental Check Table Within Reach,No Linen on Floor,Call Light in Reach, Rails up X 2 Activity/Position Refused Turn and Reposition Yes Patient Position Supine Document 08/05/22 06:00 EC2 (Rec: 08/05/22 06:35 EC2 [id number]) Patient Rounding Patient Rounding Activity Resting in Bed Patient Rounds Potty,Position Environmental Check Room Neat,Table Within Reach, Commode Empty,No Linen on Floor,Call Light in Reach, Rails up X 2 Document 08/05/22 06:42 EC2 (Rec: 08/05/22 06:42 EC2 [id number]) Patient Rounding Patient Rounding Activity Resting in Bed Patient Rounds Potty,Position Environmental Check Room Neat,Table Within Reach, Commode Empty,No Linen on Floor,Call Light in Reach, Rails up X 2 Document 08/05/22 08:19 BEACA (Rec: 08/05/22 08:19 BEACA [id number]) Patient Rounding Patient Rounding Activity Resting in Bed Environmental Check Room Neat,Table Within Reach, No Linen on Floor,Call Light in Reach,Rails up X 2 Document 08/05/22 09:21 BEACA (Rec: 08/05/22 09:21 BEACA [id number]) Patient Rounding Patient Rounding Activity Resting in Bed Environmental Check Room Neat,Table Within Reach, No Linen on Floor,Call Light in Reach,Rails up X 2 Document 08/05/22 10:04 BEACA (Rec: 08/05/22 10:05 BEACA [id number]) Patient Rounding Patient Rounding Activity Resting in Bed Environmental Check Room Neat,Table Within Reach, No Linen on Floor,Call Light in Reach,Rails up X 2 Document 08/05/22 11:07 BEACA (Rec: 08/05/22 11:07 BEACA [id number]) Patient Rounding Patient Rounding Activity Resting in Bed Environmental Check Room Neat,Table Within Reach, No Linen on Floor,Call Light in Reach,Rails up X 2 Document 08/05/22 12:04 BEACA (Rec: 08/05/22 12:04 BEACA [id number]) Patient Rounding Patient Rounding Activity Resting in Bed Environmental Check Room Neat,Table Within Reach, No Linen on Floor,Call Light in Reach,Rails up X 2 Document 08/05/22 13:03 BEACA (Rec: 08/05/22 13:03 BEACA [id number]) Patient Rounding Patient Rounding Activity Resting in Bed Environmental Check Room Neat,Table Within Reach, No Linen on Floor,Call Light in Reach,Rails up X 2 Document 08/05/22 14:42 BEACA (Rec: 08/05/22 14:42 BEACA [id number]) Patient Rounding Patient Rounding Activity Resting in Bed Environmental Check Room Neat,Table Within Reach, No Linen on Floor,Call Light in Reach,Rails up X 2 Document 08/05/22 15:00 (Rec: 08/05/22 15:43 [id number]) Patient Rounding Patient Rounding Activity Resting in Bed Patient Rounds Pain,Potty,Position,Medication Environmental Check Room Neat,Table Within Reach, Commode Empty,No Linen on Floor,Call Light in Reach, Rails up X 2 Activity/Position Turn and Reposition Every 2 Hours Patient Position Supine Level of [place] Maximum Assistance Patient Activity Bedrest Activity Ability Minimum Assistance Tolerates Activity Poor Document 08/05/22 15:43 (Rec: 08/05/22 15:43 [id number]) Patient Rounding Patient Rounding Activity Resting in Bed Patient Rounds Pain,Potty,Position,Medication Environmental Check Room Neat,Table Within Reach, Commode Empty,No Linen on Floor,Call Light in Reach, Rails up X 2 Activity/Position Turn and Reposition Every 2 Hours Level of [place] Maximum Assistance Patient Activity Bedrest Activity Ability Minimum Assistance Tolerates Activity Poor Document 08/05/22 17:12 BEACA (Rec: 08/05/22 17:12 [facility] [id number]) Patient Rounding Patient Rounding Activity Resting in Bed Environmental Check Room Neat,Table Within Reach, No Linen on Floor,Call Light in Reach,Rails up X 2 Document 08/05/22 18:01 BEACA (Rec: 08/05/22 18:02 BEACA [id number]) Patient Rounding Patient Rounding Activity Resting in Bed Environmental Check Room Neat,Table Within Reach, No Linen on Floor,Call Light in Reach,Rails up X 2 Document 08/05/22 20:00 SC (Rec: 08/06/22 01:34 MI [id number]) Patient Rounding Patient Rounding Activity Resting in Bed Environmental Check Table Within Reach,No Linen on Floor,Call Light in Reach, Rails up X 2 Activity/Position Refused Turn and Reposition Yes Patient Position Supine Document 08/05/22 21:00 SC (Rec: 08/06/22 01:34 MI [id number]) Patient Rounding Patient Rounding Activity Resting in Bed Environmental Check Table Within Reach,No Linen on Floor,Call Light in Reach, Rails up X 2 Activity/Position Refused Turn and Reposition Yes Patient Position Supine Patient Activity Bedrest Activity Ability Minimum Assistance Tolerates Activity Poor Document 08/05/22 22:00 SC (Rec: 08/06/22 01:35 SC [id number]) Patient Rounding Patient Rounding Activity Resting in Bed Environmental Check Table Within Reach,No Linen on Floor,Call Light in Reach, Rails up X 2 Activity/Position Refused Turn and Reposition Yes Patient Position Supine Patient Activity Bedrest Activity Ability Minimum Assistance Tolerates Activity Poor Document 08/05/22 23:00 SC (Rec: 08/06/22 01:35 MI [id number]) Patient Rounding Patient Rounding Activity Resting in Bed,Sitting on Side of Bed Patient Rounds Pain,Potty,Position Environmental Check Table Within Reach,No Linen on Floor,Call Light in Reach, Rails up X 2 Activity/Position Refused Turn and Reposition Yes Patient Position Supine Document 08/06/22 00:00 SC (Rec: 08/06/22 01:[id number] Patient Rounding Patient Rounding Activity Resting in Bed Environmental Check Table Within Reach,No Linen on Floor,Call Light in Reach, Rails up X 2 Activity/Position Refused Turn and Reposition Yes Patient Position Supine Document 08/06/22 01:00 SC (Rec: 08/06/22 01:36 MI [id number]) Patient Rounding Patient Rounding Activity Resting in Bed Environmental Check Table Within Reach,No Linen on Floor,Call Light in Reach, Rails up X 2 Activity/Position Refused Turn and Reposition Yes Patient Position Supine Patient Activity Bedrest Activity Ability Minimum Assistance Tolerates Activity Poor Document 08/06/22 02:00 SC (Rec: 08/06/22 03:58 MI [id number]) Patient Rounding Patient Rounding Activity Resting in Bed Environmental Check Table Within Reach,No Linen on Floor,Call Light in Reach, Rails up X 2 Activity/Position Refused Turn and Reposition Yes Patient Position Supine Document 08/06/22 03:00 SC (Rec: 08/06/22 03:58 MI [id number]) Patient Rounding Patient Rounding Activity Resting in Bed Patient Rounds Pain,Potty,Position Environmental Check Table Within Reach,No Linen on Floor,Call Light in Reach, Rails up X 2 Activity/Position Skin Measures Repositioned Document 08/06/22 04:00 SC (Rec: 08/06/22 04:45 MI [id number]) Patient Rounding Patient Rounding Activity Resting in Bed Environmental Check Table Within Reach,No Linen on Floor,Call Light in Reach, Rails up X 2 Activity/Position Refused Turn and Reposition Yes Patient Position Supine Document 08/06/22 05:00 SC (Rec: 08/06/22 06:09 MI [id number]) Patient Rounding Patient Rounding Activity Resting in Bed Patient Rounds Pain,Potty,Position Environmental Check Table Within Reach,No Linen on Floor,Call Light in Reach, Rails up X 2 Activity/Position Refused Turn and Reposition Yes Patient Position Supine Document 08/06/22 06:00 MI (Rec: 08/06/22 06:09 MI [id number]) Patient Rounding Patient Rounding Activity Resting in Bed Patient Rounds Pain,Potty,Position Environmental Check Table Within Reach,No Linen on Floor,Call Light in Reach, Rails up X 2 Activity/Position Refused Turn and Reposition Yes Patient Position Supine Patient Activity Bedrest Activity Ability Minimum Assistance Tolerates Activity Poor Document 08/06/22 07:43 SMICA7 (Rec: 08/06/22 07:43 SMICA7 [id number]) Patient Rounding Patient Rounding Activity Resting in Bed Environmental Check Room Neat,Table Within Reach, No Linen on Floor,Call Light in Reach,Rails up X 2 Document 08/06/22 10:42 SMICA7 (Rec: 08/06/22 10:43 SMICA7 [id number]) Patient Rounding Patient Rounding Activity Resting in Bed Environmental Check Room Neat,Table Within Reach, No Linen on Floor,Call Light in Reach,Rails up X 2 Document 08/06/22 11:29 SMICA7 (Rec: 08/06/22 11:29 SMICA7 [id number]) Patient Rounding Patient Rounding Activity Resting in Bed Environmental Check Room Neat,Table Within Reach, No Linen on Floor,Call Light in Reach,Rails up X 2 Document 08/06/22 12:13 (Rec: 08/06/22 12:14 [id number]) Patient Rounding Patient Rounding Activity Resting in Bed Patient Rounds Pain,Potty,Position,Medication Environmental Check Room Neat,Table Within Reach, Commode Empty,No Linen on Floor,Call Light in Reach, Rails up X 2 Activity/Position Turn and Reposition Every 4 Hours Level of [place] Moderate Assistance Patient Activity Chair Activity Ability Moderate Assistance Tolerates Activity Poor Document 08/06/22 13:01 (Rec: 08/06/22 13:01 [id number]) Patient Rounding Patient Rounding Activity Resting in Bed Patient Rounds Pain,Potty,Position,Medication Environmental Check Room Neat,Table Within Reach, Commode Empty,No Linen on Floor,Call Light in Reach, Rails up X 2 Activity/Position Turn and Reposition At Patient's Request Level of [place] Moderate Assistance Skin Measures Repositioned Patient Activity Bedrest Activity Ability [place] Assistance Tolerates Activity Poor Document 08/06/22 14:18 SMICA7 (Rec: 08/06/22 14:19 SMICA7 [id number]) Patient Rounding Patient Rounding Activity Resting in Bed Environmental Check Room Neat,Table Within Reach, No Linen on Floor,Call Light in Reach,Rails up X 2 Document 08/06/22 16:00 SMICA7 (Rec: 08/06/22 16:00 SMICA7 [id number]) Patient Rounding Patient Rounding Activity Resting in Bed Environmental Check Room Neat,Table Within Reach, No Linen on Floor,Call Light in Reach,Rails up X 2 Document 08/06/22 17:15 SMICA7 (Rec: 08/06/22 17:15 SMICA7 [id number]) Patient Rounding Patient Rounding Activity Resting in Bed Environmental Check Room Neat,Table Within Reach, No Linen on Floor,Call Light in Reach,Rails up X 2 Document 08/06/22 17:55 (Rec: 08/06/22 18:02 [id number]) Patient Rounding Patient Rounding Activity Resting in Bed Patient Rounds Pain,Potty,Position,Medication Environmental Check Room Neat,Table Within Reach, Commode Empty,No Linen on Floor,Call Light in Reach, Rails up X 2 Activity/Position Turn and Reposition At Patient's Request Level of [place] Maximum Assistance Patient Activity Bedrest Activity Ability Maximum Assistance Tolerates Activity Poor Document 08/06/22 19:00 SRL (Rec: 08/06/22 19:26 SRL [id number]) Patient Rounding Patient Rounding Activity Resting in Bed Patient Rounds Pain,Potty,Position Environmental Check Room Neat,Table Within Reach, No Linen on Floor,Rails up X 2 Document 08/06/22 19:26 SRL (Rec: 08/06/22 19:30 SRL [id number]) Patient Rounding Patient Rounding Activity Resting in Bed Patient Rounds Pain,Potty,Position Environmental Check Room Neat,Table Within Reach, No Linen on Floor,Call Light in Reach,Rails up X 2 Document 08/06/22 21:00 SC (Rec: 08/06/22 21:32 SC [id number]) Patient Rounding Patient Rounding Activity Resting in Bed Patient Rounds Pain,Potty,Position Environmental Check Table Within Reach,No Linen on Floor,Call Light in Reach, Rails up X 2 Activity/Position Patient Position Left Side Lying Level of [place] 2 Person Assist Skin Measures Repositioned Document 08/06/22 21:00 ABBBR (Rec: 08/06/22 21:32 ABBBR [id number]) Patient Rounding Patient Rounding Activity Resting in Bed Patient Rounds Pain,Potty,Position Environmental Check Room Neat,Table Within Reach, No Linen on Floor,Call Light in Reach,Rails up X 2 Document 08/06/22 21:36 ABBBR (Rec: 08/06/22 21:36 ABBBR [id number]) Patient Rounding Patient Rounding Activity Resting in Bed Patient Rounds Pain,Potty,Position Environmental Check Room Neat,Table Within Reach, No Linen on Floor,Call Light in Reach,Rails up X 2 Document 08/06/22 23:00 SRL (Rec: 08/06/22 23:14 SRL [id number]) Patient Rounding Patient Rounding Activity Resting in Bed Patient Rounds Pain,Potty,Position Environmental Check Room Neat,Table Within Reach, Call Light in Reach,Rails up X 2 Document 08/06/22 23:59 SRL (Rec: 08/07/22 00:05 SRL [id number]) Patient Rounding Patient Rounding Activity Resting in Bed Patient Rounds Pain,Potty,Position Environmental Check Room Neat,Table Within Reach, Call Light in Reach,Rails up X 2 Document 08/07/22 01:00 SC (Rec: 08/07/22 02:27 MI [id number]) Patient Rounding Patient Rounding Activity Resting in Bed Environmental Check Table Within Reach,No Linen on Floor,Call Light in Reach, Rails up X 2 Activity/Position Turn and Reposition Turned Self Patient Position Left Side Lying Document 08/07/22 02:00 SC (Rec: 08/07/22 02:28 MI [id number]) Patient Rounding Patient Rounding Activity Resting in Bed Patient Rounds Pain,Potty,Position Environmental Check Table Within Reach,No Linen on Floor,Call Light in Reach, Rails up X 2 Activity/Position Turn and Reposition Turned Self Patient Position Supine Document 08/07/22 04:00 SRL (Rec: 08/07/22 04:07 SRL [id number]) Patient Rounding Patient Rounding Activity Resting in Bed Patient Rounds Pain,Potty,Position Environmental Check Room Neat,Table Within Reach, Call Light in Reach,Rails up X 2 Document 08/07/22 05:00 ABBBR (Rec: 08/07/22 06:07 ABBBR [id number]) Patient Rounding Patient Rounding Activity Resting in Bed Patient Rounds Pain,Potty,Position Environmental Check Room Neat,Table Within Reach, No Linen on Floor,Call Light in Reach,Rails up X 2 Document 08/07/22 06:00 ABBBR (Rec: 08/07/22 06:08 ABBBR [id number]) Patient Rounding Patient Rounding Activity Resting in Bed Patient Rounds Pain,Potty,Position Environmental Check Room Neat,Table Within Reach, No Linen on Floor,Call Light in Reach,Rails up X 2 Document 08/07/22 07:00 DC (Rec: 08/07/22 07:42 DC [id number]) Patient Rounding Patient Rounding Activity Resting in Bed Environmental Check Room Neat,Table Within Reach, Commode Empty,No Linen on Floor,Bed Alarm Reset,Call Light in Reach,Rails up X 2 Document 08/07/22 07:43 DC (Rec: 08/07/22 07:43 DC [id number]) Patient Rounding Patient Rounding Activity Resting in Bed Environmental Check Room Neat,Table Within Reach, Commode Empty,No Linen on Floor,Bed Alarm Reset,Call Light in Reach,Rails up X 2 Document 08/07/22 08:37 DC (Rec: 08/07/22 08:37 DC [id number]) Patient Rounding Patient Rounding Activity Resting in Bed Environmental Check Room Neat,Table Within Reach, Commode Empty,No Linen on Floor,Bed Alarm Reset,Call Light in Reach,Rails up X 3 Document 08/07/22 09:40 DC (Rec: 08/07/22 09:41 DC [id number]) Patient Rounding Patient Rounding Activity Resting in Bed,Talking on Phone Environmental Check Room Neat,Table Within Reach, Commode Empty,No Linen on Floor,Bed Alarm Reset,Call Light in Reach,Rails up X 2 Document 08/07/22 11:00 SMICA7 (Rec: 08/07/22 11:28 SMICA7 [id number]) Patient Rounding Patient Rounding Activity Resting in Bed Environmental Check Room Neat,Table Within Reach, No Linen on Floor,Call Light in Reach,Rails up X 2 Document 08/07/22 12:44 SMICA7 (Rec: 08/07/22 12:44 SMICA7 [id number]) Patient Rounding Patient Rounding Activity Up to Chair Environmental Check Room Neat,Table Within Reach, No Linen on Floor,Call Light in Reach,Rails up X 2 Document 08/07/22 13:50 SMICA7 (Rec: 08/07/22 13:50 SMICA7 [id number]) Patient Rounding Patient Rounding Activity Resting in Bed Environmental Check Room Neat,Table Within Reach, No Linen on Floor,Call Light in Reach,Rails up X 2 Document 08/07/22 14:53 SMICA7 (Rec: 08/07/22 14:54 SMICA7 [id number]) Patient Rounding Patient Rounding Activity Resting in Bed Environmental Check Room Neat,Table Within Reach, No Linen on Floor,Call Light in Reach,Rails up X 2 Document 08/07/22 17:12 SMICA7 (Rec: 08/07/22 17:20 SMICA7 [id number]) Patient Rounding Patient Rounding Activity Resting in Bed Environmental Check Room Neat,Table Within Reach, No Linen on Floor,Call Light in Reach,Rails up X 2 Document 08/07/22 18:41 SMICA7 (Rec: 08/07/22 18:42 SMICA7 [id number]) Patient Rounding Patient Rounding Activity Resting in Bed Environmental Check Room Neat,Table Within Reach, No Linen on Floor,Call Light in Reach,Rails up X 2 Document 08/07/22 19:00 ABBBR (Rec: 08/07/22 20:32 ABBBR [id number]) Patient Rounding Patient Rounding Activity Resting in Bed Patient Rounds Pain,Potty,Position Environmental Check Room Neat,Table Within Reach, No Linen on Floor,Call Light in Reach,Rails up X 2 Document 08/07/22 20:00 ABBBR (Rec: 08/07/22 20:37 ABBBR [id number]) Patient Rounding Patient Rounding Activity Resting in Bed Patient Rounds Pain,Potty,Position Environmental Check Room Neat,Table Within Reach, No Linen on Floor,Call Light in Reach,Rails up X 2 Document 08/07/22 21:00 SRL (Rec: 08/07/22 21:56 SRL [id number]) Patient Rounding Patient Rounding Activity Resting in Bed Patient Rounds Pain,Potty,Position Environmental Check Room Neat,Table Within Reach, Call Light in Reach,Rails up X 2 Document 08/07/22 22:00 ABBBR (Rec: 08/07/22 22:39 ABBBR [id number]) Patient Rounding Patient Rounding Activity Resting in Bed Patient Rounds Pain,Potty,Position Environmental Check Room Neat,Table Within Reach, No Linen on Floor,Call Light in Reach,Rails up X 2 Document 08/07/22 23:00 ABBBR (Rec: 08/07/22 23:01 ABBBR [id number]) Patient Rounding Patient Rounding Activity Resting in Bed Patient Rounds Pain,Potty,Position Environmental Check Room Neat,Table Within Reach, No Linen on Floor,Call Light in Reach,Rails up X 2 Document 08/07/22 23:54 AC (Rec: 08/07/22 23:55 AC [id number]) Patient Rounding Patient Rounding Activity Resting in Bed Patient Rounds Pain,Potty,Position Environmental Check Room Neat,Table Within Reach, No Linen on Floor,Call Light in Reach,Rails up X 2 Activity/Position Turn and Reposition Turned Self Patient Position Supine Patient Activity Bedrest Activity Ability Maximum Assistance Tolerates Activity Poor Document 08/08/22 00:00 SRL (Rec: 08/08/22 00:28 SRL [id number]) Patient Rounding Patient Rounding Activity Resting in Bed Patient Rounds Pain,Potty,Position Environmental Check Room Neat,Table Within Reach, Call Light in Reach,Rails up X 2 Document 08/08/22 00:51 ABBBR (Rec: 08/08/22 00:52 ABBBR [id number]) Patient Rounding Patient Rounding Activity Resting in Bed Patient Rounds Pain,Potty,Position Environmental Check Room Neat,Table Within Reach, No Linen on Floor,Call Light in Reach,Rails up X 2 Document 08/08/22 02:00 SRL (Rec: 08/08/22 04:17 SRL [id number]) Patient Rounding Patient Rounding Activity Resting in Bed Patient Rounds Pain,Potty,Position Environmental Check Room Neat,Table Within Reach, Call Light in Reach,Rails up X 2 Document 08/08/22 03:00 SRL (Rec: 08/08/22 04:17 SRL [id number]) Patient Rounding Patient Rounding Activity Resting in Bed Patient Rounds Pain,Potty,Position Environmental Check Room Neat,Table Within Reach, Call Light in Reach,Rails up X 2 Document 08/08/22 04:00 SRL (Rec: 08/08/22 04:18 SRL [id number]) Patient Rounding Patient Rounding Activity Resting in Bed Patient Rounds Pain,Potty,Position Environmental Check Room Neat,Table Within Reach, Call Light in Reach,Rails up X 2 Document 08/08/22 05:00 SRL (Rec: 08/08/22 05:08 SRL [id number]) Patient Rounding Patient Rounding Activity Resting in Bed Patient Rounds Pain,Potty,Position Environmental Check Room Neat,Table Within Reach, Call Light in Reach,Rails up X 2 Document 08/08/22 06:00 AC (Rec: 08/08/22 06:14 AC [id number]) Patient Rounding Patient Rounding Activity Resting in Bed Patient Rounds Pain,Potty,Position Environmental Check Room Neat,Table Within Reach, Call Light in Reach,Rails up X 2 Activity/Position Turn and Reposition Turned Self Patient Position Supine Patient Activity Bedrest Activity Ability Maximum Assistance Tolerates Activity Poor Document 08/08/22 07:00 CR (Rec: 08/08/22 07:42 CR [id number]) Patient Rounding Patient Rounding Activity Resting in Bed Environmental Check Room Neat,Table Within Reach, Call Light in Reach Document 08/08/22 08:00 CR (Rec: 08/08/22 08:41 CR [id number]) Patient Rounding Patient Rounding Activity Resting in Bed,Eating Environmental Check Room Neat,Table Within Reach, Call Light in Reach Document 08/08/22 09:00 CR (Rec: 08/08/22 09:54 CR [id number]) Patient Rounding Patient Rounding Activity Resting in Bed Environmental Check Room Neat,Table Within Reach, Call Light in Reach Document 08/08/22 10:00 CR (Rec: 08/08/22 10:04 CR [id number]) Patient Rounding Patient Rounding Activity Resting in Bed Environmental Check Room Neat,Table Within Reach, Call Light in Reach Document 08/08/22 11:00 CR (Rec: 08/08/22 11:38 CR [id number]) Patient Rounding Patient Rounding Activity Resting in Bed Environmental Check Room Neat,Table Within Reach, Call Light in Reach Document 08/08/22 12:00 CR (Rec: 08/08/22 12:09 CR [id number]) Patient Rounding Patient Rounding Activity Resting in Bed Environmental Check Room Neat,Table Within Reach, Call Light in Reach Document 08/08/22 13:00 CR (Rec: 08/08/22 14:00 CR [id number]) Patient Rounding Patient Rounding Activity Resting in Bed Environmental Check Room Neat,Table Within Reach, Call Light in Reach Document 08/08/22 14:00 CR (Rec: 08/08/22 14:00 CR [id number]) Patient Rounding Patient Rounding Activity Resting in Bed Environmental Check Room Neat,Table Within Reach, Call Light in Reach Document 08/08/22 15:00 CR (Rec: 08/08/22 15:41 CR [id number]) Patient Rounding Patient Rounding Activity Up to Chair,Watching TV Environmental Check Room Neat,Table Within Reach, Call Light in Reach Document 08/08/22 16:00 CR (Rec: 08/08/22 18:30 CR [id number]) Patient Rounding Patient Rounding Activity Resting in Bed,Watching TV Environmental Check Room Neat,Table Within Reach, Call Light in Reach Document 08/08/22 17:00 CR (Rec: 08/08/22 18:30 CR [id number]) Patient Rounding Patient Rounding Activity Resting in Bed,Watching TV, Eating Environmental Check Room Neat,Table Within Reach, Call Light in Reach Document 08/08/22 18:00 CR (Rec: 08/08/22 18:31 CR [id number]) Patient Rounding Patient Rounding Activity Resting in Bed,Watching TV, Eating Environmental Check Room Neat,Table Within Reach, Call Light in Reach Document 08/08/22 20:00 AC (Rec: 08/08/22 21:43 AC [id number]) Patient Rounding Patient Rounding Activity Resting in Bed,Watching TV, Eating Environmental Check Room Neat,Table Within Reach, Call Light in Reach Activity/Position Turn and Reposition Turned Self Patient Position Supine Ambulation Distance (feet) 2 Document 08/08/22 21:00 AC (Rec: 08/08/22 21:43 AC [id number]) Patient Rounding Patient Rounding Activity Resting in Bed,Watching TV, Eating Environmental Check Room Neat,Table Within Reach, Call Light in Reach Activity/Position Turn and Reposition Turned Self Patient Position Supine Ambulation Distance (feet) 2 Document 08/08/22 22:00 KELCH2 (Rec: 08/08/22 22:54 KELCH2 [id number]) Patient Rounding Patient Rounding Activity Resting in Bed Patient Rounds Position Environmental Check Room Neat,Table Within Reach, Commode Empty,No Linen on Floor,Bed Alarm Reset,Call Light in Reach,Rails up X 2 Document 08/08/22 23:00 KELCH2 (Rec: 08/09/22 00:56 KELCH2 [id number]) Patient Rounding Patient Rounding Activity Resting in Bed Patient Rounds Position Environmental Check Room Neat,Table Within Reach, Commode Empty,No Linen on Floor,Bed Alarm Reset,Call Light in Reach,Rails up X 2 Document 08/09/22 00:00 KELCH2 (Rec: 08/09/22 00:57 KELCH2 [id number]) Patient Rounding Patient Rounding Activity Resting in Bed Patient Rounds Position Environmental Check Room Neat,Table Within Reach, Commode Empty,No Linen on Floor,Bed Alarm Reset,Call Light in Reach,Rails up X 2 Document 08/09/22 01:00 AC (Rec: 08/09/22 01:17 AC [id number]) Patient Rounding Patient Rounding Activity Resting in Bed Patient Rounds Position Environmental Check Room Neat,Table Within Reach, Commode Empty,No Linen on Floor,Bed Alarm Reset,Call Light in Reach,Rails up X 2 Activity/Position Turn and Reposition Turned Self Patient Position Supine Ambulation Distance (feet) 2 Document 08/09/22 02:00 KELCH2 (Rec: 08/09/22 02:09 KELCH2 [id number]) Patient Rounding Patient Rounding Activity Resting in Bed Patient Rounds Position Environmental Check Room Neat,Table Within Reach, Commode Empty,No Linen on Floor,Bed Alarm Reset,Call Light in Reach,Rails up X 2 Document 08/09/22 03:00 KELCH2 (Rec: 08/09/22 04:41 KELCH2 [id number]) Patient Rounding Patient Rounding Activity Resting in Bed Patient Rounds Position Environmental Check Room Neat,Table Within Reach, Commode Empty,No Linen on Floor,Bed Alarm Reset,Call Light in Reach,Rails up X 2 Document 08/09/22 04:00 KELCH2 (Rec: 08/09/22 04:41 KELCH2 [id number]) Patient Rounding Patient Rounding Activity Resting in Bed Patient Rounds Position Environmental Check Room Neat,Table Within Reach, Commode Empty,No Linen on Floor,Bed Alarm Reset,Call Light in Reach,Rails up X 2 Document 08/09/22 05:00 AC (Rec: 08/09/22 06:09 AC [id number]) Patient Rounding Patient Rounding Activity Resting in Bed Patient Rounds Position Environmental Check Room Neat,Table Within Reach, Commode Empty,No Linen on Floor,Bed Alarm Reset,Call Light in Reach,Rails up X 2 Activity/Position Turn and Reposition Turned Self Patient Position Supine Ambulation Distance (feet) 2 Document 08/09/22 06:00 AC (Rec: 08/09/22 06:10 AC [id number]) Patient Rounding Patient Rounding Activity Resting in Bed Patient Rounds Position Environmental Check Room Neat,Table Within Reach, Commode Empty,No Linen on Floor,Bed Alarm Reset,Call Light in Reach,Rails up X 2 Activity/Position Turn and Reposition Turned Self Patient Position Supine Ambulation Distance (feet) 2 Document 08/09/22 07:00 KELCH2 (Rec: 08/09/22 07:23 KELCH2 [id number]) Patient Rounding Patient Rounding Activity Resting in Bed Patient Rounds Position Environmental Check Room Neat,Table Within Reach, Commode Empty,No Linen on Floor,Bed Alarm Reset,Call Light in Reach,Rails up X 2 Document 08/09/22 08:00 CR (Rec: 08/09/22 08:10 CR [id number]) Patient Rounding Patient Rounding Activity Resting in Bed Environmental Check Room Neat,Table Within Reach, Call Light in Reach Document 08/09/22 09:00 CR (Rec: 08/09/22 09:27 CR [id number]) Patient Rounding Patient Rounding Activity Resting in Bed,Eating Environmental Check Room Neat,Table Within Reach, Call Light in Reach Document 08/09/22 10:00 CR (Rec: 08/09/22 10:01 CR [id number]) Patient Rounding Patient Rounding Activity Resting in Bed,Visitors at Bedside Environmental Check Room Neat,Table Within Reach, Call Light in Reach Document 08/09/22 11:00 SK (Rec: 08/09/22 11:17 SK [id number]) Patient Rounding Patient Rounding Activity Resting in Bed Patient Rounds Pain,Potty,Position,Medication Environmental Check Room Neat,Table Within Reach, Call Light in Reach Document 08/09/22 12:00 CR (Rec: 08/09/22 12:08 CR [id number]) Patient Rounding Patient Rounding Activity Up to Shower Document 08/09/22 13:00 CR (Rec: 08/09/22 14:22 CR [email or web address]) Patient Rounding Patient Rounding Activity Resting in Bed Environmental Check Room Neat,Table Within Reach, Call Light in Reach Document 08/09/22 14:00 CR (Rec: 08/09/22 14:22 CR [id number]) Patient Rounding Patient Rounding Activity Resting in Bed Environmental Check Room Neat,Table Within Reach, Call Light in Reach Document 08/09/22 15:00 CR (Rec: 08/09/22 15:42 CR [id number]) Patient Rounding Patient Rounding Activity Resting in Bed,Watching TV Environmental Check Room Neat,Table Within Reach, Call Light in Reach Document 08/09/22 16:00 CR (Rec: 08/09/22 16:42 CR [id number]) Patient Rounding Patient Rounding Activity Resting in Bed Environmental Check Room Neat,Table Within Reach, Call Light in Reach Document 08/09/22 17:00 CR (Rec: 08/09/22 18:08 CR [id number]) Patient Rounding Patient Rounding Activity Resting in Bed,Watching TV, Eating Environmental Check Room Neat,Table Within Reach, Call Light in Reach Document 08/09/22 18:00 CR (Rec: 08/09/22 18:08 CR [id number]) Patient Rounding Patient Rounding Activity Resting in Bed,Watching TV Environmental Check Room Neat,Table Within Reach, Call Light in Reach Document 08/09/22 19:00 SK (Rec: 08/09/22 19:16 SK [id number]) Patient Rounding Patient Rounding Activity Resting in Bed,Watching TV Environmental Check Room Neat,Table Within Reach, Call Light in Reach Document 08/09/22 19:59 AC (Rec: 08/09/22 20:05 AC [id number]) Patient Rounding Patient Rounding Activity Resting in Bed,Watching TV Environmental Check Room Neat,Table Within Reach, Call Light in Reach Activity/Position Turn and Reposition Turned Self Patient Position Supine Ambulation Distance (feet) 2 Document 08/09/22 21:00 KELCH2 (Rec: 08/09/22 21:56 KELCH2 [id number]) Patient Rounding Patient Rounding Activity Resting in Bed Patient Rounds Position Environmental Check Room Neat,Table Within Reach, Commode Empty,No Linen on Floor,Bed Alarm Reset,Call Light in Reach,Rails up X 2 Document 08/09/22 22:00 AC (Rec: 08/10/22 00:27 AC [id number]) Patient Rounding Patient Rounding Activity Resting in Bed Patient Rounds Position Environmental Check Room Neat,Table Within Reach, Commode Empty,No Linen on Floor,Bed Alarm Reset,Call Light in Reach,Rails up X 2 Activity/Position Turn and Reposition Turned Self Patient Position Supine Ambulation Distance (feet) 2 Document 08/10/22 00:00 AC (Rec: 08/10/22 00:28 AC [id number]) Patient Rounding Patient Rounding Activity Resting in Bed Patient Rounds Position Environmental Check Room Neat,Table Within Reach, Commode Empty,No Linen on Floor,Bed Alarm Reset,Call Light in Reach,Rails up X 2 Activity/Position Turn and Reposition Turned Self Patient Position Supine Ambulation Distance (feet) 2 Document 08/10/22 01:00 AC (Rec: 08/10/22 04:12 AC [id number]) Patient Rounding Patient Rounding Activity Resting in Bed Patient Rounds Position Environmental Check Room Neat,Table Within Reach, Commode Empty,No Linen on Floor,Bed Alarm Reset,Call Light in Reach,Rails up X 2 Activity/Position Turn and Reposition Turned Self Patient Position Supine Ambulation Distance (feet) 2 Document 08/10/22 02:00 AC (Rec: 08/10/22 04:12 AC [id number]) Patient Rounding Patient Rounding Activity Resting in Bed Patient Rounds Position Environmental Check Room Neat,Table Within Reach, Commode Empty,No Linen on Floor,Bed Alarm Reset,Call Light in Reach,Rails up X 2 Activity/Position Turn and Reposition Turned Self Patient Position Supine Ambulation Distance (feet) 2 Document 08/10/22 03:00 AC (Rec: 08/10/22 04:13 AC [id number]) Patient Rounding Patient Rounding Activity Resting in Bed Patient Rounds Position Environmental Check Room Neat,Table Within Reach, Commode Empty,No Linen on Floor,Bed Alarm Reset,Call Light in Reach,Rails up X 2 Activity/Position Turn and Reposition Turned Self Patient Position Supine Document 08/10/22 04:00 AC (Rec: 08/10/22 04:13 AC [id number]) Patient Rounding Patient Rounding Activity Resting in Bed Patient Rounds Position Environmental Check Room Neat,Table Within Reach, Commode Empty,No Linen on Floor,Bed Alarm Reset,Call Light in Reach,Rails up X 2 Activity/Position Turn and Reposition Turned Self Patient Position Supine Ambulation Distance (feet) 2 Document 08/10/22 04:13 AC (Rec: 08/10/22 04:14 AC [id number]) Patient Rounding Patient Rounding Activity Resting in Bed Patient Rounds Position Environmental Check Room Neat,Table Within Reach, Commode Empty,No Linen on Floor,Bed Alarm Reset,Call Light in Reach,Rails up X 2 Activity/Position Turn and Reposition Turned Self Patient Position Supine Ambulation Distance (feet) 2 Document 08/10/22 05:38 AC (Rec: 08/10/22 05:38 AC [id number]) Patient Rounding Patient Rounding Activity Resting in Bed Patient Rounds Position Environmental Check Room Neat,Table Within Reach, Commode Empty,No Linen on Floor,Bed Alarm Reset,Call Light in Reach,Rails up X 2 Activity/Position Turn and Reposition Turned Self Patient Position Supine Ambulation Distance (feet) 2 Document 08/10/22 15:00 NEASH (Rec: 08/10/22 15:29 NEASH [id number]) Patient Rounding Patient Rounding Activity Resting in Bed Environmental Check Room Neat,Table Within Reach, No Linen on Floor,Call Light in Reach,Rails up X 2 Activity/Position Turn and Reposition Turned Self Patient Position Supine Level of [place] Standby Assistance Skin Measures Lift Sheet Used Patient Activity Up ad nita Activity Ability Standby Assistance,1 Person Assist Tolerates Activity Good Document 08/10/22 16:00 MCGHA2 (Rec: 08/10/22 16:35 [id number] [id number]) Patient Rounding Patient Rounding Activity Resting in Bed,Visitors at Bedside Environmental Check Room Neat,Table Within Reach, No Linen on Floor,Call Light in Reach,Rails up X 2 Activity/Position Turn and Reposition At Patient's Request,Turned Self Patient Position Supine Level of [place] Standby Assistance Skin Measures Lift Sheet Used Patient Activity Up ad nita Activity Ability Standby Assistance,1 Person Assist Tolerates Activity Good Document 08/10/22 16:36 MCGHA2 (Rec: 08/10/22 16:36 MCGHA2 [id number]) Patient Rounding Patient Rounding Activity Resting in Bed,Visitors at Bedside Environmental Check Room Neat,Table Within Reach, No Linen on Floor,Call Light in Reach,Rails up X 2 Activity/Position Turn and Reposition At Patient's Request,Turned Self Patient Position Supine Level of [place] Standby Assistance Skin Measures Lift Sheet Used Document 08/10/22 16:36 MCGHA2 (Rec: 08/10/22 16:36 MCGHA2 [id number]) Patient Rounding Patient Rounding Activity Resting in Bed,Visitors at Bedside Environmental Check Room Neat,Table Within Reach, No Linen on Floor,Call Light in Reach,Rails up X 2 Activity/Position Turn and Reposition At Patient's Request,Turned Self Patient Position Supine Level of [place] Standby Assistance Skin Measures Lift Sheet Used Patient Activity Up ad nita Activity Ability Standby Assistance,1 Person Assist Tolerates Activity Good Document 08/10/22 17:00 NEREKHA (Rec: 08/10/22 18:10 NEASH [id number]) Patient Rounding Patient Rounding Activity Resting in Bed Environmental Check Room Neat,Table Within Reach, No Linen on Floor,Call Light in Reach,Rails up X 2 Activity/Position Turn and Reposition Turned Self Patient Position Supine Level of [place] Standby Assistance,1 Person Assist Patient Activity Up ad nita,Chair,Bathroom Privilege Activity Ability Standby Assistance,1 Person Assist Tolerates Activity Fair Document 08/10/22 19:00 EM (Rec: 08/10/22 20:44 EM [id number]) Patient Rounding Patient Rounding Activity Resting in Bed Patient Rounds Pain,Potty,Position Environmental Check Room Neat,Table Within Reach, No Linen on Floor,Call Light in Reach,Rails up X 2 Activity/Position Turn and Reposition Turned Self Level of [place] Independent Patient Activity Ambulates,Bathroom Privilege Activity Ability Minimum Assistance,1 Person Assist Document 08/10/22 20:00 EM (Rec: 08/10/22 20:44 EM [id number]) Patient Rounding Patient Rounding Activity Resting in Bed Patient Rounds Pain,Potty,Position Environmental Check Room Neat,Table Within Reach, No Linen on Floor,Call Light in Reach,Rails up X 2 Activity/Position Turn and Reposition Turned Self Level of [place] Independent Document 08/10/22 21:00 ABBBR (Rec: 08/10/22 23:04 ABBBR [id number]) Patient Rounding Patient Rounding Activity Resting in Bed Patient Rounds Pain,Potty,Position Environmental Check Room Neat,Table Within Reach, No Linen on Floor,Call Light in Reach,Rails up X 2 Document 08/10/22 22:00 ABBBR (Rec: 08/10/22 23:04 ABBBR [id number]) Patient Rounding Patient Rounding Activity Resting in Bed Patient Rounds Pain,Potty,Position Environmental Check Room Neat,Table Within Reach, No Linen on Floor,Call Light in Reach,Rails up X 2 Document 08/10/22 23:00 ABBBR (Rec: 08/10/22 23:04 ABBBR [id number]) Patient Rounding Patient Rounding Activity Resting in Bed Patient Rounds Pain,Potty,Position Environmental Check Room Neat,Table Within Reach, No Linen on Floor,Call Light in Reach,Rails up X 2 Document 08/10/22 23:45 ABBBR (Rec: 08/10/22 23:48 ABBBR [id number]) Patient Rounding Patient Rounding Activity Resting in Bed Patient Rounds Pain,Potty,Position Environmental Check Room Neat,Table Within Reach, No Linen on Floor,Call Light in Reach,Rails up X 2 Document 08/11/22 01:00 ABBBR (Rec: 08/11/22 02:09 ABBBR [id number]) Patient Rounding Patient Rounding Activity Resting in Bed Patient Rounds Pain,Potty,Position Environmental Check Room Neat,Table Within Reach, No Linen on Floor,Call Light in Reach,Rails up X 2 Document 08/11/22 02:00 ABBBR (Rec: 08/11/22 02:09 ABBBR [id number]) Patient Rounding Patient Rounding Activity Resting in Bed Patient Rounds Pain,Potty,Position Environmental Check Room Neat,Table Within Reach, No Linen on Floor,Call Light in Reach,Rails up X 2 Document 08/11/22 03:00 EM (Rec: 08/11/22 03:17 EM [id number]) Patient Rounding Patient Rounding Activity Resting in Bed Patient Rounds Pain,Potty,Position Environmental Check Room Neat,Table Within Reach, No Linen on Floor,Call Light in Reach,Rails up X 2 Document 08/11/22 03:42 ABBBR (Rec: 08/11/22 03:44 ABBBR [id number]) Patient Rounding Patient Rounding Activity Resting in Bed Patient Rounds Pain,Potty,Position Environmental Check Room Neat,Table Within Reach, No Linen on Floor,Call Light in Reach,Rails up X 2 Document 08/11/22 05:00 EM (Rec: 08/11/22 05:35 EM [id number]) Patient Rounding Patient Rounding Activity Resting in Bed Patient Rounds Pain,Potty,Position Environmental Check Room Neat,Table Within Reach, No Linen on Floor,Call Light in Reach,Rails up X 2 Document 08/11/22 06:00 EM (Rec: 08/11/22 06:48 EM [id number]) Patient Rounding Patient Rounding Activity Resting in Bed Patient Rounds Pain,Potty,Position Environmental Check Room Neat,Table Within Reach, No Linen on Floor,Call Light in Reach,Rails up X 2 Document 08/11/22 07:00 CR (Rec: 08/11/22 08:31 CR [id number]) Patient Rounding Patient Rounding Activity Resting in Bed,Watching TV Environmental Check Room Neat,Table Within Reach, Call Light in Reach Document 08/11/22 08:00 CR (Rec: 08/11/22 08:31 CR [id number]) Patient Rounding Patient Rounding Activity Resting in Bed,Watching TV Environmental Check Room Neat,Table Within Reach, Call Light in Reach Document 08/11/22 09:00 CR (Rec: 08/11/22 10:47 CR [id number]) Patient Rounding Patient Rounding Activity Resting in Bed,Watching TV Environmental Check Room Neat,Table Within Reach, Call Light in Reach Document 08/11/22 10:00 CR (Rec: 08/11/22 10:47 CR [id number]) Patient Rounding Patient Rounding Activity Resting in Bed,Watching TV Environmental Check Room Neat,Table Within Reach, Call Light in Reach Document 08/11/22 13:15 RAB (Rec: 08/11/22 13:16 RAB [id number]) Patient Rounding Patient Rounding Activity Resting in Bed Patient Rounds Position Environmental Check Room Neat,Table Within Reach, No Linen on Floor,Call Light in Reach,Rails up X 2 Document 08/11/22 14:00 MCGHA2 (Rec: 08/11/22 16:51 MCGHA2 [id number]) Patient Rounding Patient Rounding Activity Resting in Bed Patient Rounds Position Environmental Check Room Neat,Table Within Reach, No Linen on Floor,Call Light in Reach,Rails up X 2 Activity/Position Turn and Reposition Turned Self Level of [place] Independent Patient Activity Ambulates,Bathroom Privilege Activity Ability Minimum Assistance,1 Person Assist Document 08/11/22 15:00 MCGHA2 (Rec: 08/11/22 16:51 MCGHA2 [id number]) Patient Rounding Patient Rounding Activity Resting in Bed Patient Rounds Position Environmental Check Room Neat,Table Within Reach, No Linen on Floor,Call Light in Reach,Rails up X 2 Activity/Position Turn and Reposition Turned Self Level of [place] Independent Patient Activity Ambulates,Bathroom Privilege Activity Ability Minimum Assistance,1 Person Assist Document 08/11/22 16:00 MCGHA2 (Rec: 08/11/22 16:51 [email or web address] [id number]) Patient Rounding Patient Rounding Activity Resting in Bed Patient Rounds Position Environmental Check Room Neat,Table Within Reach, No Linen on Floor,Call Light in Reach,Rails up X 2 Activity/Position Turn and Reposition Turned Self Level of [place] Independent Patient Activity Ambulates,Bathroom Privilege Activity Ability Minimum Assistance,1 Person Assist Document 08/11/22 16:52 MCGHA2 (Rec: 08/11/22 16:52 [email or web address] [id number]) Patient Rounding Patient Rounding Activity Resting in Bed Patient Rounds Position Environmental Check Room Neat,Table Within Reach, No Linen on Floor,Call Light in Reach,Rails up X 2 Activity/Position Turn and Reposition Turned Self Level of [place] Independent Patient Activity Ambulates,Bathroom Privilege Activity Ability Minimum Assistance,1 Person Assist Document 08/11/22 16:52 MCGHA2 (Rec: 08/11/22 16:52 [email or web address] [id number]) Patient Rounding Patient Rounding Activity Resting in Bed Patient Rounds Position Environmental Check Room Neat,Table Within Reach, No Linen on Floor,Call Light in Reach,Rails up X 2 Activity/Position Turn and Reposition Turned Self Level of [place] Independent Patient Activity Ambulates,Bathroom Privilege Activity Ability Minimum Assistance,1 Person Assist Document 08/11/22 19:00 KELCH2 (Rec: 08/11/22 20:35 KELCH2 [id number]) Patient Rounding Patient Rounding Activity Resting in Bed Patient Rounds Position Environmental Check Room Neat,Table Within Reach, Commode Empty,No Linen on Floor,Bed Alarm Reset,Call Light in Reach,Rails up X 2 Document 08/11/22 20:00 KELCH2 (Rec: 08/11/22 20:36 KELCH2 [id number]) Patient Rounding Patient Rounding Activity Resting in Bed Patient Rounds Position Environmental Check Room Neat,Table Within Reach, Commode Empty,No Linen on Floor,Bed Alarm Reset,Call Light in Reach,Rails up X 2 Document 08/11/22 21:00 FM (Rec: 08/11/22 22:30 FM [id number]) Patient Rounding Patient Rounding Activity Resting in Bed Patient Rounds Pain,Potty,Position,Medication Environmental Check Table Within Reach,Commode Empty,No Linen on Floor,Bed Alarm Reset,Call Light in Reach,Rails up X 2 Activity/Position Turn and Reposition Turned Self Level of [place] Independent Patient Activity Ambulates,Bathroom Privilege Activity Ability Minimum Assistance,1 Person Assist Document 08/11/22 22:00 FM (Rec: 08/11/22 22:31 FM [id number]) Patient Rounding Patient Rounding Activity Resting in Bed Patient Rounds Pain,Potty,Position,Medication Environmental Check Table Within Reach,Commode Empty,No Linen on Floor,Bed Alarm Reset,Call Light in Reach,Rails up X 2 Activity/Position Turn and Reposition Turned Self Level of [place] Independent Patient Activity Ambulates,Bathroom Privilege Activity Ability Minimum Assistance,1 Person Assist Document 08/11/22 22:31 FM (Rec: 08/11/22 22:31 FM [id number]) Patient Rounding Patient Rounding Activity Resting in Bed Patient Rounds Pain,Potty,Position,Medication Environmental Check Table Within Reach,Commode Empty,No Linen on Floor,Bed Alarm Reset,Call Light in Reach,Rails up X 2 Activity/Position Turn and Reposition Turned Self Level of [place] Independent Patient Activity Ambulates,Bathroom Privilege Activity Ability Minimum Assistance,1 Person Assist Document 08/11/22 23:12 FM (Rec: 08/11/22 23:12 FM [id number]) Patient Rounding Patient Rounding Activity Resting in Bed Patient Rounds Pain,Potty,Position,Medication Environmental Check Table Within Reach,Commode Empty,No Linen on Floor,Bed Alarm Reset,Call Light in Reach,Rails up X 2 Activity/Position Turn and Reposition Turned Self Level of [place] Independent Patient Activity Ambulates,Bathroom Privilege Activity Ability Minimum Assistance,1 Person Assist Document 08/12/22 00:30 FM (Rec: 08/12/22 00:30 FM [id number]) Patient Rounding Patient Rounding Activity Resting in Bed Patient Rounds Pain,Potty,Position,Medication Environmental Check Table Within Reach,Commode Empty,No Linen on Floor,Bed Alarm Reset,Call Light in Reach,Rails up X 2 Activity/Position Turn and Reposition Turned Self Level of [place] Independent Patient Activity Ambulates,Bathroom Privilege Activity Ability Minimum Assistance,1 Person Assist Document 08/12/22 00:34 KELCH2 (Rec: 08/12/22 00:34 KELCH2 [id number]) Patient Rounding Patient Rounding Activity Resting in Bed Patient Rounds Position Environmental Check Room Neat,Table Within Reach, Commode Empty,No Linen on Floor,Bed Alarm Reset,Call Light in Reach Document 08/12/22 03:00 FM (Rec: 08/12/22 03:08 FM [id number]) Patient Rounding Patient Rounding Activity Resting in Bed Patient Rounds Pain,Potty,Position,Medication Environmental Check Room Neat,Table Within Reach, Commode Empty,No Linen on Floor,Bed Alarm Reset,Call Light in Reach Activity/Position Turn and Reposition Turned Self Level of [place] Independent Patient Activity Ambulates,Bathroom Privilege Activity Ability Minimum Assistance,1 Person Assist Document 08/12/22 03:08 FM (Rec: 08/12/22 03:08 FM [id number]) Patient Rounding Patient Rounding Activity Resting in Bed Patient Rounds Pain,Potty,Position,Medication Environmental Check Room Neat,Table Within Reach, Commode Empty,No Linen on Floor,Bed Alarm Reset,Call Light in Reach Document 08/12/22 04:03 KELCH2 (Rec: 08/12/22 04:03 KELCH2 [id number]) Patient Rounding Patient Rounding Activity Resting in Bed Patient Rounds Position Environmental Check Room Neat,Table Within Reach, Commode Empty,No Linen on Floor,Bed Alarm Reset,Call Light in Reach,Rails up X 2 Document 08/12/22 05:11 FM (Rec: 08/12/22 05:11 FM [id number]) Patient Rounding Patient Rounding Activity Resting in Bed Patient Rounds Pain,Potty,Position,Medication Environmental Check Room Neat,Table Within Reach, Commode Empty,No Linen on Floor,Bed Alarm Reset,Call Light in Reach,Rails up X 2 Activity/Position Turn and Reposition Turned Self Level of [place] Independent Patient Activity Ambulates,Bathroom Privilege Activity Ability Minimum Assistance,1 Person Assist Document 08/12/22 06:13 FM (Rec: 08/12/22 06:13 FM [id number]) Patient Rounding Patient Rounding Activity Resting in Bed Patient Rounds Pain,Potty,Position,Medication Environmental Check Room Neat,Table Within Reach, Commode Empty,No Linen on Floor,Bed Alarm Reset,Call Light in Reach,Rails up X 2 Activity/Position Turn and Reposition Turned Self Level of [place] Independent Patient Activity Ambulates,Bathroom Privilege Activity Ability Minimum Assistance,1 Person Assist Document 08/12/22 07:24 KB (Rec: 08/12/22 07:25 KB [id number]) Patient Rounding Patient Rounding Activity Resting in Bed Patient Rounds Pain,Potty,Position Environmental Check Room Neat,Table Within Reach, Commode Empty,No Linen on Floor,Bed Alarm Reset,Call Light in Reach,Rails up X 2 Document 08/12/22 10:00 JA (Rec: 08/12/22 10:23 JA [id number]) Patient Rounding Patient Rounding Activity Resting in Bed Patient Rounds Pain,Potty,Position Environmental Check Room Neat,Table Within Reach, Commode Empty,No Linen on Floor,Call Light in Reach, Rails up X 2 Document 08/12/22 11:00 JA (Rec: 08/12/22 12:16 JA [id number]) Patient Rounding Patient Rounding Activity Resting in Bed Patient Rounds Pain,Potty,Position Environmental Check Room Neat,Table Within Reach, Commode Empty,No Linen on Floor,Call Light in Reach, Rails up X 2 Document 08/12/22 12:00 JA (Rec: 08/12/22 12:16 JA [id number]) Patient Rounding Patient Rounding Activity Up to Bathroom Patient Rounds Pain,Potty,Position Environmental Check Room Neat,Table Within Reach, Commode Empty,No Linen on Floor,Call Light in Reach, Rails up X 2 Document 08/12/22 13:10 JA (Rec: 08/12/22 13:10 JA [id number]) Patient Rounding Patient Rounding Activity Resting in Bed,Watching TV Patient Rounds Pain,Potty,Position Environmental Check Room Neat,Table Within Reach, Commode Empty,No Linen on Floor,Call Light in Reach, Rails up X 2 Document 08/12/22 14:00 JA (Rec: 08/12/22 14:26 JA [id number]) Patient Rounding Patient Rounding Activity Visitors at Bedside,Up to Chair Patient Rounds Pain,Potty,Position Environmental Check Room Neat,Table Within Reach, Commode Empty,No Linen on Floor,Call Light in Reach, Rails up X 2 Document 08/12/22 15:11 JA (Rec: 08/12/22 15:12 JA [id number]) Patient Rounding Patient Rounding Activity Resting in Bed,Visitors at Bedside Patient Rounds Pain,Potty,Position Environmental Check Room Neat,Table Within Reach, Commode Empty,No Linen on Floor,Call Light in Reach, Rails up X 2 Document 08/12/22 16:00 MCGHA2 (Rec: 08/12/22 17:20 [email or web address] [id number]) Patient Rounding Patient Rounding Activity Resting in Bed,Visitors at Bedside Patient Rounds Pain,Potty,Position Environmental Check Room Neat,Table Within Reach, Commode Empty,No Linen on Floor,Bed Alarm Reset,Call Light in Reach,Rails up X 2 Activity/Position Turn and Reposition Turned Self Level of [place] Independent Ambulation Distance (feet) 10 Document 08/12/22 16:00 KB (Rec: 08/12/22 16:27 KB [id number]) Patient Rounding Patient Rounding Activity Resting in Bed,Visitors at Bedside Patient Rounds Pain,Potty,Position Environmental Check Room Neat,Table Within Reach, Commode Empty,No Linen on Floor,Bed Alarm Reset,Call Light in Reach,Rails up X 2 Document 08/12/22 17:00 [email or web address] (Rec: 08/12/22 17:22 [email or web address] [id number]) Patient Rounding Patient Rounding Activity Resting in Bed,Visitors at Bedside Patient Rounds Pain,Potty,Position Environmental Check Room Neat,Table Within Reach, Commode Empty,No Linen on Floor,Bed Alarm Reset,Call Light in Reach,Rails up X 2 Activity/Position Turn and Reposition Turned Self Level of [place] Independent Document 08/12/22 17:22 [id number] (Rec: 08/12/22 17:22 [id number] [id number]) Patient Rounding Patient Rounding Activity Resting in Bed,Visitors at Bedside Patient Rounds Pain,Potty,Position Environmental Check Room Neat,Table Within Reach, Commode Empty,No Linen on Floor,Bed Alarm Reset,Call Light in Reach,Rails up X 2 Activity/Position Turn and Reposition Turned Self Level of [place] Independent Ambulation Distance (feet) 10 Document 08/12/22 19:00 EC2 (Rec: 08/12/22 20:05 EC2 [id number]) Patient Rounding Patient Rounding Activity Resting in Bed Patient Rounds Potty,Position Environmental Check Room Neat,Table Within Reach, Commode Empty,No Linen on Floor,Bed Alarm Reset,Call Light in Reach,Rails up X 2 Document 08/12/22 20:00 EC2 (Rec: 08/12/22 20:07 EC2 [email or web address]) Patient Rounding Patient Rounding Activity Resting in Bed Patient Rounds Potty,Position Environmental Check Room Neat,Table Within Reach, Commode Empty,No Linen on Floor,Bed Alarm Reset,Call Light in Reach,Rails up X 2 Document 08/12/22 21:00 FM (Rec: 08/12/22 21:53 FM [email or web address]) Patient Rounding Patient Rounding Activity Resting in Bed Patient Rounds Pain,Potty,Position,Medication Environmental Check Room Neat,Table Within Reach, Commode Empty,No Linen on Floor,Bed Alarm Reset,Call Light in Reach,Rails up X 2 Activity/Position Turn and Reposition Turned Self Level of [place] Independent Ambulation Distance (feet) 10 Document 08/12/22 21:54 FM (Rec: 08/12/22 21:54 FM [email or web address]) Patient Rounding Patient Rounding Activity Resting in Bed Patient Rounds Pain,Potty,Position,Medication Environmental Check Room Neat,Table Within Reach, Commode Empty,No Linen on Floor,Bed Alarm Reset,Call Light in Reach,Rails up X 2 Activity/Position Turn and Reposition Turned Self Level of [place] Independent Document 08/12/22 23:00 FM (Rec: 08/12/22 23:50 FM [email or web address]) Patient Rounding Patient Rounding Activity Resting in Bed Patient Rounds Pain,Potty,Position,Medication Environmental Check Room Neat,Table Within Reach, Commode Empty,No Linen on Floor,Bed Alarm Reset,Call Light in Reach,Rails up X 2 Activity/Position Turn and Reposition Turned Self Level of [place] Independent Ambulation Distance (feet) 10 Document 08/12/22 23:50 FM (Rec: 08/12/22 23:50 FM [email or web address]) Patient Rounding Patient Rounding Activity Resting in Bed Patient Rounds Pain,Potty,Position,Medication Environmental Check Room Neat,Table Within Reach, Commode Empty,No Linen on Floor,Bed Alarm Reset,Call Light in Reach,Rails up X 2 Activity/Position Turn and Reposition Turned Self Level of [place] Independent Ambulation Distance (feet) 10 Document 08/13/22 01:00 FM (Rec: 08/13/22 01:52 FM [email or web address]) Patient Rounding Patient Rounding Activity Resting in Bed Patient Rounds Pain,Potty,Position,Medication Environmental Check Room Neat,Table Within Reach, Commode Empty,No Linen on Floor,Bed Alarm Reset,Call Light in Reach,Rails up X 2 Activity/Position Turn and Reposition Turned Self Level of [place] Independent Ambulation Distance (feet) 10 Document 08/13/22 01:52 FM (Rec: 08/13/22 01:52 FM [email or web address]) Patient Rounding Patient Rounding Activity Resting in Bed Patient Rounds Pain,Potty,Position,Medication Environmental Check Room Neat,Table Within Reach, Commode Empty,No Linen on Floor,Bed Alarm Reset,Call Light in Reach,Rails up X 2 Activity/Position Turn and Reposition Turned Self Level of [place] Independent Ambulation Distance (feet) 10 Document 08/13/22 03:00 FM (Rec: 08/13/22 03:37 FM [email or web address]) Patient Rounding Patient Rounding Activity Resting in Bed Patient Rounds Pain,Potty,Position,Medication Environmental Check Room Neat,Table Within Reach, Commode Empty,No Linen on Floor,Bed Alarm Reset,Call Light in Reach,Rails up X 2 Activity/Position Turn and Reposition Turned Self Level of [place] Independent Ambulation Distance (feet) 10 Document 08/13/22 03:37 FM (Rec: 08/13/22 03:37 FM [email or web address]) Patient Rounding Patient Rounding Activity Resting in Bed Patient Rounds Pain,Potty,Position,Medication Environmental Check Room Neat,Table Within Reach, Commode Empty,No Linen on Floor,Bed Alarm Reset,Call Light in Reach,Rails up X 2 Activity/Position Turn and Reposition Turned Self Level of [place] Independent Ambulation Distance (feet) 10 Document 08/13/22 05:00 FM (Rec: 08/13/22 05:48 FM [email or web address]) Patient Rounding Patient Rounding Activity Resting in Bed Patient Rounds Pain,Potty,Position,Medication Environmental Check Room Neat,Table Within Reach, Commode Empty,No Linen on Floor,Bed Alarm Reset,Call Light in Reach,Rails up X 2 Activity/Position Turn and Reposition Turned Self Level of [place] Independent Ambulation Distance (feet) 10 Document 08/13/22 05:48 FM (Rec: 08/13/22 05:48 FM [email or web address]) Patient Rounding Patient Rounding Activity Resting in Bed Patient Rounds Pain,Potty,Position,Medication Environmental Check Room Neat,Table Within Reach, Commode Empty,No Linen on Floor,Bed Alarm Reset,Call Light in Reach,Rails up X 2 Activity/Position Turn and Reposition Turned Self Level of [place] Independent Ambulation Distance (feet) 10 Document 08/13/22 06:18 EC2 (Rec: 08/13/22 06:18 EC2 [id number]) Patient Rounding Patient Rounding Activity Resting in Bed Patient Rounds Potty,Position Environmental Check Room Neat,Table Within Reach, Commode Empty,No Linen on Floor,Bed Alarm Reset,Call Light in Reach,Rails up X 2 Document 08/13/22 07:50 KN (Rec: 08/13/22 07:50 KN [id number]) Patient Rounding Patient Rounding Activity Resting in Bed Patient Rounds Potty,Position Environmental Check Room Neat,Table Within Reach, Commode Empty,No Linen on Floor,Bed Alarm Reset,Call Light in Reach,Rails up X 2 Activity/Position Turn and Reposition Turned Self Level of [place] Independent Document 08/13/22 09:06 KN (Rec: 08/13/22 09:06 KN [id number]) Patient Rounding Patient Rounding Activity Resting in Bed Patient Rounds Potty,Position Environmental Check Room Neat,Table Within Reach, Commode Empty,No Linen on Floor,Bed Alarm Reset,Call Light in Reach,Rails up X 2 Activity/Position Turn and Reposition Turned Self Level of [place] Independent Ambulation Distance (feet) 10 Document 08/13/22 10:58 RAB (Rec: 08/13/22 10:58 RAB [id number]) Patient Rounding Patient Rounding Activity Resting in Bed,Watching TV Environmental Check Room Neat,Table Within Reach, No Linen on Floor,Call Light in Reach,Rails up X 2 Document 08/13/22 11:13 RAB (Rec: 08/13/22 11:13 RAB [id number]) Patient Rounding Patient Rounding Activity Resting in Bed,Watching TV Environmental Check Room Neat,Table Within Reach, No Linen on Floor,Call Light in Reach,Rails up X 2 CLAIMS ACCOUNT SPECIALIST: Daily Treatment Note Start: 08/08/22 11:58 Freq: Status: Active Protocol: Document 08/09/22 10:35 [facility] (Rec: 08/09/22 10:38 [facility] [id number]) CLAIMS ACCOUNT SPECIALIST Daily Treatment Note Time In 08:00 Time Out 08:30 Reason for Skilled Visit Requires Verbal Cueing Patient Reports Pain No Motivation Level Asks Questions Subjective Comment Patient is alert and cooperative. Goals See Swallowing Goals Objective Comment Patient has been attempting to eat her regular diet breakfast, however, upon entering her room, she is throwing up everything that she has eaten. She reports she has a history of difficulty with eating and has been told to eat standing up. This was offered, however, she declined. The slick diet was also tried with the patient without improvement. The patient reports the same difficulty with solids and liquids. Will contact Dr. Beal about possible esophageal assessment. Cueing Used In This Session Semantic Potential for Progress Fair Assessment Comment Patient demonstrates and reports difficulty with getting food down and keeping it down. She reports she had surgery approximately 2 years ago and was told to stand while eating, however, she doesn't always do that since it doesn't help. Patient may benefit from modified barium swallowing study and/or barium swallow study. Treatment Plan Continue Therapy Swallowing Treatment 1 CLAIMS ACCOUNT SPECIALIST: Modified Barium Swallow Start: 08/08/22 11:58 Freq: Status: Active Protocol: Document 08/09/22 15:38 [facility] (Rec: 08/09/22 15:46 [facility] [id number]) CLAIMS ACCOUNT SPECIALIST: Modified Barium Swallow Time In 11:00 Time Out 11:30 Functional Status Prior to Admission Patient is alert and cooperative. The patient was noted to have severe difficulty with her breakfast reporting that she could take a few bites and then she would regurgitate what she ate. [place] diet was trialed at bedside without benefit. This therapist contacted Dr. Beal regarding the MBS to further assess her esophageal function. Onset of Swallowing Dysfunction 08/09/22 Current Diet Regular Liquid Consistency Regular Current Medications SEE EMR Current Concerns Difficulty Swallowing, Aspiration Risk Patient Reports Pain No Lateral View Foods Regular,Puree Lateral View Foods Comment Patient was given 5 and 10mls of pudding thick barium paste, nectar thick and thin barium. Patient was also given a barium tablet with water, a shoaib cracker with pudding thick barium paste, and free drinking of thin barium from a cup. Lateral View Liquids Thin,[place] Lateral View Patient demonstrates functional lip seal, muscle sling contraction, tongue base retraction, and anterior to posterior propulsion of the bolus. Patient also demonstrated functional oropharyngeal, velopharyngeal, and laryngeal seal without penetration or aspiration. Patient demonstrated functional hyolaryngeal excursion, hypopharyngeal expansion, and pharyngeal compression, as well as functional relaxation of the upper esophageal seal. See Radiologist's report for esophageal function. Oral Phase Normal Normal or Abnormal Normal Overall Impressions Patient demonstrated functional oral and pharyngeal phases of swallowing without signs of aspiration or penetration. See the Radiologist's report regarding esophageal function. Further esophageal assessment is recommended. Feeding Recommendations Liquids by Straw Positioning 90 Amount of Supervision As needed Limit Size of Spoonfuls To 1/2 tspn Medication Administration Forms With Liquid MBS Study 1 CLAIMS ACCOUNT SPECIALIST: Speech/Language Evaluation Start: 08/08/22 11:58 Freq: Status: Active Protocol: Document 08/08/22 11:58 OLIVA (Rec: 08/08/22 12:17 OLIVA [id number]) CLAIMS ACCOUNT SPECIALIST Speech/Language Evaluation Time In 11:35 Time Out 11:56 Functional Status Prior to Admission The pt was admitted to the hospital with intractable pain , L hip pain, Lower back pain and acute ancephalopathy. Recent back surgery with Dr. Tapia here at [facility]. The pt has a medical Hx of coronary artery disease s/p stenting x 2, hypothyroidism, hypertension, nephrolithiasis, depression, diabetes, hyperlipidemia, lumbar stenosis, L hip pain and replacement. The pt currently has a regular diet ordered. She indicates that she has not been able to eat due to nausea and food coming back up . The pt described having a esophageal procedure in the past, but was not able to adequately describe to determine exactly what this procedure was. She does relate Hx of acid reflux. Communication Comment The pt is confused. She is able to indicate her name and birthdate, that she was at the hospital in [place], and the month and the year. She did not recall previous visits from Dr. Tapia here at the hospital. Dr. Tapia was present for part of the session, and reminded her of visits by himself and the surgical PA. The pt indicated that she had not eaten since hispitalized. Her nurse indicated good consumption yesterday. Poor insight noted in her overall consition and abilities. Functional Deficit Comment Functional lingual range of motion noted. Impressions The patient complained of nausea throughout the session. She did have 2 episodes of expectorating pitting that it already been swallowed. The patient was able to bring up a significant mount of expectorant during these episodes. She indicated that foods and liquids felt like they were sticking in her esophagus. There was a significant amount of time between oral consumption and these episodes. The patient did not display overt symptoms of aspiration on initial swallows. Oral cavity was clear between swallows. Suspect that oral pharyngeal swallowing is functional, and that the patient's deficits are related to esophageal functioning, but further instrumental work-up would be indicated to pinpoint exact point of dysfunction. EGD and /or esophagram could be considered. The patient indicated that she she had these type of episodes at home where she had to spit food back up, and that she did not notice a difference between different food consistencies and liquids. At this time, plan will be for the patient continue with a regular consistency diet as tolerated. The patient displays poor insight at this time into her abilities and her current condition. The patient does display confusion, however, is able to answer many orientation questions correctly. CLAIMS ACCOUNT SPECIALIST will follow with the patient, as indicated . Liquid Consistency Recommendations Regular Liquids Dietary Consistency Recommendations Regular Diet Positioning in Degrees Sitting Up Right 90 Limit Size of Spoonfuls To 1 tspn Reflux/Aspiration Up 30 Min Post Eat/Drink,Check for s/s Aspiration Feeding Recommendation Comments Reflux precautions recommended . Additional Medication Comments Medications, as tolerated Pain Present No Treatment Plan Frequency CLAIMS ACCOUNT SPECIALIST intervention follow-up, as indicated Speech and Swallow Goals Long-term goal: Patient will consume an oral diet without significant difficulty, mental status to functional levels Short-term goals: 1. Patient will consume an oral diet without significant difficulty 2. Adjust dietary consistency , as indicated 3. Compensatory swallowing strategies, as indicated 4. Patient will complete functional problem-solving activities 5. Comprehension and retention of material presented to her Swallowing/Feeding Evaluation 1 Eval for Speech and Language 1 SS: Discharge Plan Start: 08/05/22 12:27 Freq: NEEDED Status: Active Protocol: Document 08/05/22 12:33 AL (Rec: 08/05/22 12:37 AL [id number]) Discharge Plan If Other-Comment Unsure @ this time. Services Arranged for Discharge None Physical Funtion (ADL's) No Assistance Require Physical Changes to Living No Enviornment Has Patient/Family been educated on post Yes -hospital care Additional Comments CM to room to see patient. She reports that she sees Deepa Kaufman for PCP w/ [facility] and uses [facility]. She reports that she lives @ home alone and she will be able to return there if we are able to get her pain under control. Patient reports she had surgery on 08/02 and was DC 'd home on the same day. She reports she was fine until Friday morning and then the pain started. She reports that she has walker, electric scooter, and cane @ home. She is independent w/ her ADL's. She can transfer herself from bed or chair to scooter. She is able to drive and can transfer to car. She reports that she can use her walker when she goes out. She would like to return home @ DC and reports that a friend will pick her up. During the interview patient begins to moan and wince w/ pain. CM is unsure of DC plan @ this time. CM will continue to follow. Document 08/06/22 13:47 AL (Rec: 08/06/22 13:49 AL [id number]) Discharge Plan Provider Chose From List Yes: SNF: 1. [facility] 2. [facility] 3. [facility] 4. [facility] Performance Data Provided Yes Additional Comments Per Dr. Beal during rounds he has discussed w/ patient and she is agreeable to SNF. CM to room to speak to patient she is very sedated @ this time. She reports that she guesses she is ok w/ placement. Choices obtained. Choice sheet completed and placed in chart. 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 Document 08/06/22 16:26 AL (Rec: 08/06/22 16:26 AL [id number]) Discharge Plan Additional Comments New Referral to [facility] @ this time. Comru Access Code: [email or web address] completed and emailed to Dr. Beal to sign. Document 08/07/22 08:19 BEACA(2) (Rec: 08/07/22 10:22 BEACA(2) [id number]) Discharge Plan Additional Comments Called [facility] and left message for Lizzie, checking on referral. Document 08/07/22 10:05 BEACA(2) (Rec: 08/07/22 10:24 BEACA(2) [id number]) Discharge Plan Additional Comments Per rounding with Dr. Beal, Patient is still experiencing pain. WB status as per PT. CM to continue to work on SNF placement. Called [facility] and left message for Lizzie, checking on referral. Document 08/07/22 13:11 TBM (Rec: 08/07/22 13:12 TBM [id number]) Discharge Plan Additional Comments CM spoke to [facility] at [facility] and she states that she is awaiting therapy notes to review and they will check her insurance. CM updated that therapy is ordered but hasn't been completed yet and will send evals when documented. Document 08/07/22 15:55 TBM (Rec: 08/07/22 15:55 TBM [id number]) Discharge Plan Additional Comments OT eval faxed to [facility], awaiting PT evals. Document 08/08/22 07:50 TBM (Rec: 08/08/22 08:12 TBM [id number]) Discharge Plan Additional Comments CM faxed updated notes to [facility] . Document 08/08/22 08:14 TBM (Rec: 08/08/22 08:14 TBM [id number]) Discharge Plan Additional Comments CM attempted to contact [facility] and had to leave a VM. Document 08/08/22 10:00 BEACA(2) (Rec: 08/08/22 10:02 BEACA(2) [id number]) Discharge Plan Additional Comments CM spoke with Lizzie at [facility], She asked for more progress notes because they are still reviewing. Faxed at this time. Per rounds with Lian Turner. Eduardo Turner was consulted yesterday for a palliative care consult. Document 08/08/22 13:08 TBM (Rec: 08/08/22 13:08 TBM [id number]) Discharge Plan Additional Comments CM called [facility] and left VM for Lizzie and Chio checking on referral. Document 08/08/22 15:58 TBM (Rec: 08/08/22 16:00 TBM [id number]) Discharge Plan Additional Comments CM called [facility] again and had to leave another VM checking on referral. Referral faxed to [facility]. [id number] signed and placed in chart. Document 08/09/22 08:26 AL (Rec: 08/09/22 08:26 AL [id number]) Discharge Plan Additional Comments Deepa from [facility] and reports they have referral and will review. Document 08/09/22 08:50 TBM (Rec: 08/09/22 09:38 TBM [id number]) Discharge Plan Additional Comments CM spoke to Lizzie with [facility], she states that they will start auth today. Document 08/09/22 10:13 TBM (Rec: 08/09/22 11:00 TBM [id number]) Discharge Plan Additional Comments Lizzie from [facility] called back and states that after morning meeting, they aren't able to accept her any longer due to staffing. CM called [facility] and spoke to Keya, she states that assurance officer is working on the insurance portion of the referral and will get back to CM when she has an answer. Document 08/09/22 14:00 TBM (Rec: 08/10/22 15:05 TBM [id number]) Discharge Plan Additional Comments CM spoke to Deepa at [facility] and she states that they are unable to accept patient. Referral sent to [facility], [facility], and [facility] inpatient rehab. Document 08/09/22 16:05 AL (Rec: 08/09/22 16:06 AL [id number]) Discharge Plan Additional Comments Tianna from [facility] calls and reports that they have the referral and will review. Document 08/10/22 12:21 TBM (Rec: 08/10/22 12:21 TBM [id number]) Discharge Plan Additional Comments Per rounds with Dr. Beal, patient isn't medically ready for discharge, will be here until Friday, CM to continue to work on placement. Document 08/11/22 10:13 TBM (Rec: 08/11/22 10:17 TBM [id number]) Discharge Plan Additional Comments CM discussed DC plan with patient. CM update that referrals have been sent to other SNF and inpatient rehabs due to [facility] and [facility] being unable to accept and [facility] and [facility] being OON with her insurance. Patient verbalized an understanding. She states that she hopes to improve enough to be able to go home. She states right now that her pain is under control if she is sitting in bed, it does increase when she gets up to use the restroom but the pain medication is helping. Per rounds with Dr. Beal, PT will continue to work with patient. Patient is scheduled for barium swallow tomorrow. Document 08/11/22 13:47 TBM (Rec: 08/11/22 13:47 TBM [id number]) Discharge Plan Additional Comments [facility], [facility], and [facility]. Therapy notes not sent as patient is 3-5 days a week M-F. Document 08/12/22 08:33 TBM (Rec: 08/12/22 08:37 TBM [id number]) Discharge Plan Additional Comments CM called [facility] and spoke to Ewa, she states that she did get the updates and she is in morning meeting right now to review and will get back to CM. CM called [facility] to check on referral, attempted to leave VM and mailbox was full and unable to leave a message. CM called [facility] and spoke to Mi, she states that she is reviewing referral but if patient needs ST they might not be able to accept, CM will clarify in rounds. Document 08/12/22 08:46 AL (Rec: 08/12/22 08:47 AL [id number]) Discharge Plan Additional Comments [facility] and reports that they have the referral and will review. Document 08/12/22 13:56 TBM (Rec: 08/12/22 13:58 TBM [id number]) Discharge Plan Additional Comments Ewa from [facility] states that they can accept patient and will start auth. Operative note from spine surgery and todays therapy notes faxed. Document 08/13/22 13:05 [facility] (Rec: 08/13/22 13:07 [facility] [id number]) Discharge Plan Additional Comments Ewa from [facility]. She had a few questions. Yard Switch Operator faxed her updated notes . Still awaiting auth. SS: Initial Assessment Start: 08/05/22 12:27 Freq: Q1MX1 Status: Active Protocol: Document 08/05/22 12:27 AL (Rec: 08/05/22 12:32 AL [id number]) Initial Interview Screening Criteria Age 80 or Older, S Score Other Criteria S Score: 3 History Provided By Patient Who May I Contact in Your Family to Keep Faina Winkler: [phone] Them Updated Cement Tester Assistant Information Faina Winkler: [phone] Pay Source Referral(s) Made None Healthcare Directives No- Not Interested Living Arrangements Alone Pt Have Concerns About Their Living No Environment Relationship Status Are There Barriers to Positive Treatment No Outcomes Do You Have Transportation Available if Yes, Family Returning Home at Services Prior to Admission None Current DME Walker,Wheelchair(Electric), Cane Physical Funtion (ADL's) No Assistance Suicide Risk Start: 08/04/22 05:15 Freq: Q1MX1,Q6H Status: Complete Protocol: Document 08/04/22 05:17 [email or web address] (Rec: 08/04/22 05:23 [email or web address] [id number]) Suicide Risk Assessment Wish To Be No Non-Specific Active Suicidal Thoughts No Suicidal Behavior Never Result Referral Not Indicated Add [facility] Crisis Number To Discharge No Packet Add [place] Crisis Number To Discharge No Packet Suicide Risk Start: 08/04/22 15:41 Freq: ONCE Status: Complete Protocol: Document 08/04/22 15:41 CB (Rec: 08/04/22 16:14 CB [id number]) Suicide Risk Assessment Wish To Be No Non-Specific Active Suicidal Thoughts No Active Suicidal Thoughts With Method(Not No Plan)Without Intent Active Suicidal Ideation With Some No Intent To Act, Without Sp Suicidal Ideation With Specific Plan and No Intent Suicidal Behavior Never Add [facility] Crisis Number To Discharge No Packet Add [place] [facility] Number To Discharge No Packet Surveillance Start: 08/05/22 11:02 Freq: Status: Active Protocol: Document 08/05/22 11:00 BKG DAEMON (Rec: 08/05/22 11:02 BKG DAEMON [email or web address]) Surveillance [facility] 08/05/2022 0600 Prolonged immobilization Document 08/06/22 11:00 BKG DAEMON (Rec: 08/06/22 11:02 BKG DAEMON [id number]) Surveillance [place] [facility] 08/06/2022 0600 Prolonged immobilization Document 08/07/22 11:00 BKG DAEMON (Rec: 08/07/22 11:01 BKG DAEMON [email or web address]) Surveillance [place] [facility] 08/07/2022 0600 Prolonged immobilization Document 08/08/22 11:00 BKG DAEMON (Rec: 08/08/22 11:01 BKG DAEMON [id number]) Surveillance [place] Location [facility] 08/08/2022 0600 Other Document 08/09/22 11:00 BKG DAEMON (Rec: 08/09/22 11:01 BKG DAEMON [id number]) Surveillance [place] [facility] 08/09/2022 0600 Other Document 08/10/22 11:00 BKG DAEMON (Rec: 08/10/22 11:02 BKG DAEMON [id number]) Surveillance [place] [facility] 08/10/2022 0538 Other Document 08/11/22 11:00 BKG DAEMON (Rec: 08/11/22 11:02 BKG DAEMON [email or web address]) Surveillance [place] Location [place] [id number] 08/11/2022 0600 Other Teach: CAUTI Start: 08/04/22 15:12 Freq: ONCE Status: Complete Protocol: Document 08/04/22 15:14 (2) (Rec: 08/04/22 15:14 (2) [id number]) Teach: Continuous Teaching Record Start: 08/04/22 15:41 Freq: 10,22 Status: Active Protocol: Document 08/04/22 22:00 SC (Rec: 08/05/22 01:14 SC [id number]) Teach: Continuous Teaching Does patient need to speak with No discharge planning or Case M Medical Equipment Oxygen Safety Treatment Plan Activity Teaching Recipient Patient Teaching Methods Discussion Response to Teaching Verbalize Understanding Document 08/05/22 11:19 (Rec: 08/05/22 11:19 [id number]) Teach: Continuous Teaching Does patient need to speak with No discharge planning or Case M Medical Equipment IV Pump Teaching Recipient Patient Teaching Methods Discussion Response to Teaching Verbalize Understanding Document 08/05/22 22:00 SC (Rec: 08/06/22 01:35 SC [id number]) Teach: Continuous Teaching Does patient need to speak with No discharge planning or Case M Medical Equipment Oxygen Safety Teaching Recipient Patient Teaching Methods Discussion Response to Teaching Verbalize Understanding Document 08/06/22 12:12 (Rec: 08/06/22 12:13 [id number]) Teach: Continuous Teaching Does patient need to speak with Yes discharge planning or Case M Medical Equipment Bed Alarm Teaching Recipient Patient Teaching Methods Discussion Response to Teaching Reinforcement Needed Document 08/06/22 22:00 SC (Rec: 08/06/22 23:23 SC [id number]) Teach: Continuous Teaching Does patient need to speak with No discharge planning or Case M Medication pain medications Medication Topic Potential Adverse Reaction Teaching Recipient Patient Teaching Methods Discussion Other/Ordered Education Topics falls Teaching Recipient Patient Teaching Methods Discussion Response to Teaching Reinforcement Needed Document 08/07/22 10:00 LB (Rec: 08/07/22 19:46 LB [id number]) Teach: Continuous Teaching Does patient need to speak with No discharge planning or Case M Medical Equipment IV Pump,Oxygen Safety Teaching Recipient Patient Teaching Methods Discussion Response to Teaching Verbalize Understanding, Reinforcement Needed Medication OXY Medication Topic Dose,Strength Teaching Recipient Patient Teaching Methods Discussion Response to Teaching Verbalize Understanding Treatment Plan Activity,Diet/Meals,Treatment Goals Teaching Recipient Patient Teaching Methods Discussion Response to Teaching Verbalize Understanding Document 08/07/22 22:00 AC (Rec: 08/07/22 23:54 AC [id number]) Teach: Continuous Teaching Does patient need to speak with No discharge planning or Case M Medical Equipment IV Pump,Oxygen Safety Teaching Recipient Patient Teaching Methods Discussion Response to Teaching Verbalize Understanding, Reinforcement Needed Medication OXY/flexiril/gabapentin Medication Topic New Medication,Dose,Strength Teaching Recipient Patient Teaching Methods Discussion Response to Teaching Verbalize Understanding Treatment Plan Activity,Diet/Meals,Treatment Goals Teaching Recipient Patient Teaching Methods Discussion Response to Teaching Verbalize Understanding Other/Ordered Education Topics [place] Teaching Recipient Patient Teaching Methods Discussion Response to Teaching Reinforcement Needed Document 08/08/22 10:00 LB (Rec: 08/08/22 19:49 LB [id number]) Teach: Continuous Teaching Does patient need to speak with No discharge planning or Case M Medical Equipment IV Pump,Oxygen Safety Teaching Recipient Patient Teaching Methods Discussion Response to Teaching Verbalize Understanding, Reinforcement Needed Medication OXY Medication Topic Dose,Strength Teaching Recipient Patient Teaching Methods Discussion Response to Teaching Verbalize Understanding Treatment Plan Activity,Diet/Meals,Treatment Goals Teaching Recipient Patient Teaching Methods Discussion Response to Teaching Verbalize Understanding Document 08/08/22 22:00 (Rec: 08/09/22 06:08 [id number]) Teach: Continuous Teaching Does patient need to speak with No discharge planning or Case M Medical Equipment IV Pump,Oxygen Safety Teaching Recipient Patient Teaching Methods Discussion Response to Teaching Verbalize Understanding, Reinforcement Needed Medication OXY Medication Topic Dose,Strength Teaching Recipient Patient Teaching Methods Discussion Response to Teaching Verbalize Understanding Treatment Plan Activity,Diet/Meals,Treatment Goals Teaching Recipient Patient Teaching Methods Discussion Response to Teaching Verbalize Understanding Other/Ordered Education Topics [place] Teaching Recipient Patient Teaching Methods Discussion Response to Teaching Reinforcement Needed Document 08/09/22 10:00 SK (Rec: 08/09/22 11:16 SK [id number]) Teach: Continuous Teaching Does patient need to speak with No discharge planning or Case M Medical Equipment IV Pump,Oxygen Safety Teaching Recipient Patient Teaching Methods Discussion Response to Teaching Verbalize Understanding, Reinforcement Needed Medication OXY Medication Topic Dose,Strength Teaching Recipient Patient Teaching Methods Discussion Response to Teaching Verbalize Understanding Treatment Plan Activity,Diet/Meals,Treatment Goals Teaching Recipient Patient Teaching Methods Discussion Response to Teaching Verbalize Understanding Other/Ordered Education Topics [place] Teaching Recipient Patient Teaching Methods Discussion Response to Teaching Reinforcement Needed Document 08/09/22 22:00 (Rec: 08/10/22 00:27 [id number]) Teach: Continuous Teaching Does patient need to speak with No discharge planning or Case M Medical Equipment IV Pump,Oxygen Safety Teaching Recipient Patient Teaching Methods Discussion Response to Teaching Verbalize Understanding, Reinforcement Needed Medication OXY Medication Topic Dose,Strength Teaching Recipient Patient Teaching Methods Discussion Response to Teaching Verbalize Understanding Treatment Plan Activity,Diet/Meals,Treatment Goals Teaching Recipient Patient Teaching Methods Discussion Response to Teaching Verbalize Understanding Other/Ordered Education Topics falls Teaching Recipient Patient Teaching Methods Discussion Response to Teaching Reinforcement Needed Document 08/10/22 10:00 MCGHA2 (Rec: 08/10/22 16:34 [id number] [id number]) Teach: Continuous Teaching Does patient need to speak with No discharge planning or Case M Medical Equipment IV Pump Teaching Recipient Patient Teaching Methods Discussion Response to Teaching Verbalize Understanding Document 08/10/22 22:00 EM (Rec: 08/11/22 03:17 EM [email or web address]) Teach: Continuous Teaching Does patient need to speak with No discharge planning or Case M Medical Equipment IV Pump Teaching Recipient Patient Teaching Methods Discussion Response to Teaching Verbalize Understanding Medication gabapentin Medication Topic Dose,Strength Teaching Recipient Patient Teaching Methods Discussion Response to Teaching Verbalize Understanding Treatment Plan Activity,Diet/Meals,Treatment Goals Teaching Recipient Patient Teaching Methods Discussion Response to Teaching Verbalize Understanding Document 08/11/22 10:00 MCGHA2 (Rec: 08/11/22 16:50 MCGHA2 [email or web address]) Teach: Continuous Teaching Does patient need to speak with No discharge planning or Case M Medical Equipment IV Pump Teaching Recipient Patient Teaching Methods Discussion Response to Teaching Verbalize Understanding Medication gabapentin Medication Topic Dose,Strength Teaching Recipient Patient Teaching Methods Discussion Response to Teaching Verbalize Understanding Treatment Plan Activity,Diet/Meals,Treatment Goals Teaching Recipient Patient Teaching Methods Discussion Response to Teaching Verbalize Understanding Other/Ordered Education Topics [place] Teaching Recipient Patient Teaching Methods Discussion Response to Teaching Reinforcement Needed Document 08/11/22 22:00 FM (Rec: 08/11/22 22:31 FM [email or web address]) Teach: Continuous Teaching Does patient need to speak with No discharge planning or Case M Medical Equipment IV Pump Teaching Recipient Patient Teaching Methods Discussion Response to Teaching Verbalize Understanding Medication gabapentin Medication Topic Dose,Strength Teaching Recipient Patient Teaching Methods Discussion Response to Teaching Verbalize Understanding Treatment Plan Activity,Diet/Meals,Treatment Goals Teaching Recipient Patient Teaching Methods Discussion Response to Teaching Verbalize Understanding Other/Ordered Education Topics [place] Teaching Recipient Patient Teaching Methods Discussion Response to Teaching Reinforcement Needed Document 08/12/22 10:00 MCGHA2 (Rec: 08/12/22 16:25 MCGHA2 [id number]) Teach: Continuous Teaching Does patient need to speak with No discharge planning or Case M Medical Equipment IV Pump Teaching Recipient Patient Teaching Methods Discussion Response to Teaching Verbalize Understanding Medication gabapentin Medication Topic Dose,Strength Teaching Recipient Patient Teaching Methods Discussion Response to Teaching Verbalize Understanding Treatment Plan Activity,Diet/Meals,Treatment Goals Teaching Recipient Patient Teaching Methods Discussion Response to Teaching Verbalize Understanding Other/Ordered Education Topics [place] Teaching Recipient Patient Teaching Methods Discussion Response to Teaching Reinforcement Needed Document 08/12/22 21:54 FM (Rec: 08/12/22 21:54 FM [email or web address]) Teach: Continuous Teaching Does patient need to speak with No discharge planning or Case M Medical Equipment IV Pump Teaching Recipient Patient Teaching Methods Discussion Response to Teaching Verbalize Understanding Treatment Plan Treatment Goals Document 08/13/22 11:51 KN (Rec: 08/13/22 11:51 KN [id number]) Teach: Continuous Teaching Does patient need to speak with No discharge planning or Case M Treatment Plan Activity Teaching Recipient Patient Teaching Methods Discussion Response to Teaching Verbalize Understanding Teach: Hospitalization Admit Start: 08/04/22 15:41 Freq: ONCE Status: Complete Protocol: Document 08/04/22 15:41 CB (Rec: 08/04/22 16:14 CB [email or web address]) Teach: Hospital Admission Primary Language Nauruan Preferred Language Nauruan Teaching Materials Given in Preferred Yes Language Needed for Clear Communication None Was Patient Provided With My Health Yes Folder and Contents Utilize [id number] Program at No Discharge [place] Teaching Orientation to Room,Patient Guide Teaching Recipient Patient Teaching Methods Discussion,Demonstration, Handout,Protocol Response to Teaching Verbalize Understanding, Reinforcement Needed Pain Topics Pain Management Program,Pain Relief Options Teaching Recipient Patient,Family Teaching Methods Discussion Response to Teaching Verbalize Understanding, Reinforcement Needed Medical Equipment Bed Alarm,Oxygen Safety Teaching Recipient Patient Teaching Methods Discussion Response to Teaching Verbalize Understanding, Reinforcement Needed Teach: Physical Therapy Start: 08/07/22 20:02 Freq: Status: Active Protocol: Document 08/07/22 20:02 [facility] (Rec: 08/07/22 20:02 [facility] [id number]) Teach: Physical Therapy PT Education Topics Adaptive Program,Exercise Program,Safety Awareness Teaching Recipient Patient Teaching Methods Discussion,Demonstration Response to Teaching Reinforcement Needed Teach: Conference Manager Start: 08/05/22 12:27 Freq: NEEDED Status: Active Protocol: Document 08/05/22 12:33 AL (Rec: 08/05/22 12:37 AL [id number]) Teach: Conference Manager Topic Discharge Planning Recipient Patient Methods Discussion Response Verbalize Understanding Teach: Speech Language Pathology Start: 08/08/22 11:58 Freq: Status: Active Protocol: Document 08/08/22 11:58 JLF (Rec: 08/08/22 11:58 JLF [id number]) Teach: CLAIMS ACCOUNT SPECIALIST Medical History/Summary List Reviewed by Yes Therapist CLAIMS ACCOUNT SPECIALIST Education Topics Speech Language Status,Swallow Status Recipient Patient Methods Discussion Response Verbalize understanding, Reinforcement needed Vital Signs Start: 08/04/22 10:47 Freq: Q1MX1,Q4HR Status: Active Protocol: Document 08/04/22 16:21 CR (Rec: 08/04/22 16:22 CR [id number]) Vital Signs - Monitor Interface Temperature (97.6 F-99.6 F) 97.6 F Pulse Rate (60-100) 91 Respiratory Rate (12-18) 14 Blood Pressure 130/76 Blood Pressure Mean (mmHg) 94 Pulse Oximetry (90-100) 91 Document 08/04/22 20:00 EC2 (Rec: 08/04/22 21:26 EC2 [id number]) Vital Signs - Monitor Interface Temperature (97.6 F-99.6 F) 97.9 F Temperature Source Oral Pulse Rate (60-100) 92 Respiratory Rate (12-18) 17 Pulse Oximetry (90-100) 94 Oxygen Delivery Method Nasal Cannula Oxygen Flow Rate 1 Document 08/05/22 00:00 EC2 (Rec: 08/05/22 01:07 EC2 [id number]) Vital Signs - Monitor Interface Temperature (97.6 F-99.6 F) 100.0 F H Temperature Source Oral Pulse Rate (60-100) 92 Respiratory Rate (12-18) 16 Blood Pressure 148/70 Blood Pressure Mean (mmHg) 96 Blood Pressure Source Automatic Cuff Blood Pressure Position Semi Fowlers Pulse Oximetry (90-100) 93 Oxygen Delivery Method Nasal Cannula Oxygen Flow Rate 1 Document 08/05/22 04:00 EC2 (Rec: 08/05/22 05:02 EC2 [id number]) Vital Signs - Monitor Interface Temperature (97.6 F-99.6 F) 99.3 F Temperature Source Oral Pulse Rate (60-100) 92 Respiratory Rate (12-18) 17 Blood Pressure 148/74 Blood Pressure Mean (mmHg) 98 Blood Pressure Source Automatic Cuff Blood Pressure Position Semi Fowlers Pulse Oximetry (90-100) 94 Oxygen Delivery Method Nasal Cannula Oxygen Flow Rate 1 Document 08/05/22 07:47 BEACA (Rec: 08/05/22 07:47 BEACA [id number]) Vital Signs - Monitor Interface Temperature (97.6 F-99.6 F) 98.5 F Temperature Source Oral Pulse Rate (60-100) 79 Respiratory Rate (12-18) 15 Blood Pressure 109/65 Blood Pressure Mean (mmHg) 79 Blood Pressure Source Automatic Cuff Pulse Oximetry (90-100) 94 Oxygen Delivery Method Nasal Cannula Document 08/05/22 11:34 BEACA (Rec: 08/05/22 11:35 BEACA [id number]) Vital Signs - Monitor Interface Temperature (97.6 F-99.6 F) 98.3 F Temperature Source Oral Pulse Rate (60-100) 94 Respiratory Rate (12-18) 16 Blood Pressure 119/63 Blood Pressure Mean (mmHg) 81 Blood Pressure Source Automatic Cuff Pulse Oximetry (90-100) 90 Oxygen Delivery Method Nasal Cannula Document 08/05/22 15:43 (Rec: 08/05/22 15:46 [id number]) Vital Signs - Monitor Interface Oxygen Delivery Method Nasal Cannula Oxygen Flow Rate 2 Document 08/05/22 15:53 BEACA (Rec: 08/05/22 15:54 BEACA [id number]) Vital Signs - Monitor Interface Temperature (97.6 F-99.6 F) 97.9 F Temperature Source Oral Pulse Rate (60-100) 88 Respiratory Rate (12-18) 16 Blood Pressure 165/72 Blood Pressure Mean (mmHg) 103 Blood Pressure Source Automatic Cuff Pulse Oximetry (90-100) 99 Oxygen Delivery Method Nasal Cannula Document 08/05/22 20:00 BO (Rec: 08/05/22 23:10 BO [email or web address]) Vital Signs - Monitor Interface Temperature (97.6 F-99.6 F) 97.7 F Temperature Source Oral Pulse Rate (60-100) 78 Respiratory Rate (12-18) 16 Blood Pressure 153/72 Blood Pressure Mean (mmHg) 99 Blood Pressure Source Automatic Cuff Pulse Oximetry (90-100) 98 Document 08/06/22 00:00 BO (Rec: 08/06/22 01:54 BO [email or web address]) Vital Signs - Monitor Interface Temperature (97.6 F-99.6 F) 97.2 F L Temperature Source Oral Pulse Rate (60-100) 101 H Respiratory Rate (12-18) 16 Blood Pressure 146/70 Blood Pressure Mean (mmHg) 95 Blood Pressure Source Automatic Cuff Pulse Oximetry (90-100) 96 Document 08/06/22 04:00 BO (Rec: 08/06/22 05:23 BO [email or web address]) Vital Signs - Monitor Interface Temperature (97.6 F-99.6 F) 97.9 F Temperature Source Oral Pulse Rate (60-100) 80 Respiratory Rate (12-18) 12 Blood Pressure 106/52 Blood Pressure Mean (mmHg) 70 Blood Pressure Source Automatic Cuff Pulse Oximetry (90-100) 89 L Document 08/06/22 08:00 [email or web address] (Rec: 08/06/22 08:04 [email or web address] [id number]) Vital Signs - Monitor Interface Temperature (97.6 F-99.6 F) 98.4 F Temperature Source Axillary Pulse Rate (60-100) 88 Respiratory Rate (12-18) 16 Blood Pressure 165/75 Blood Pressure Mean (mmHg) 105 Blood Pressure Source Automatic Cuff Pulse Oximetry (90-100) 96 Document 08/06/22 11:40 [email or web address] (Rec: 08/06/22 11:40 SMICA7 [id number]) Vital Signs - Monitor Interface Temperature (97.6 F-99.6 F) 98.3 F Temperature Source Axillary Pulse Rate (60-100) 73 Respiratory Rate (12-18) 17 Blood Pressure 126/60 Blood Pressure Mean (mmHg) 82 Blood Pressure Source Automatic Cuff Pulse Oximetry (90-100) 94 Oxygen Delivery Method Room Air Document 08/06/22 16:00 [email or web address] (Rec: 08/06/22 17:04 [email or web address] [id number]) Vital Signs - Monitor Interface Temperature (97.6 F-99.6 F) 98.2 F Temperature Source Oral Pulse Rate (60-100) 78 Respiratory Rate (12-18) 16 Blood Pressure 108/64 Blood Pressure Mean (mmHg) 78 Blood Pressure Source Automatic Cuff Pulse Oximetry (90-100) 96 Oxygen Delivery Method Nasal Cannula Document 08/06/22 19:26 SRL (Rec: 08/06/22 19:30 SRL [id number]) Vital Signs - Monitor Interface Temperature (97.6 F-99.6 F) 97.7 F Temperature Source Axillary Pulse Rate (60-100) 71 Respiratory Rate (12-18) 17 Blood Pressure 141/71 Blood Pressure Mean (mmHg) 94 Blood Pressure Source Automatic Cuff Pulse Oximetry (90-100) 98 Oxygen Delivery Method Nasal Cannula Document 08/06/22 23:59 SRL (Rec: 08/07/22 00:05 SRL [id number]) Vital Signs - Monitor Interface Temperature (97.6 F-99.6 F) 97.7 F Pulse Rate (60-100) 82 Respiratory Rate (12-18) 15 Blood Pressure 163/70 Blood Pressure Mean (mmHg) 101 Blood Pressure Source Automatic Cuff Pulse Oximetry (90-100) 92 Oxygen Delivery Method Nasal Cannula Document 08/07/22 04:00 SRL (Rec: 08/07/22 04:07 SRL [id number]) Vital Signs - Monitor Interface Pulse Rate (60-100) 80 Respiratory Rate (12-18) 16 Blood Pressure 119/70 Blood Pressure Mean (mmHg) 86 Blood Pressure Source Automatic Cuff Pulse Oximetry (90-100) 90 Oxygen Delivery Method Nasal Cannula Oxygen Flow Rate 2 Document 08/07/22 07:42 DC (Rec: 08/07/22 07:43 DC [id number]) Vital Signs - Monitor Interface Temperature (97.6 F-99.6 F) 98.8 F Temperature Source Oral Pulse Rate (60-100) 80 Respiratory Rate (12-18) 20 H Blood Pressure 165/73 Blood Pressure Mean (mmHg) 103 Blood Pressure Source Automatic Cuff Pulse Oximetry (90-100) 97 Oxygen Delivery Method Room Air Document 08/07/22 12:00 [email or web address] (Rec: 08/07/22 12:20 SMICA7 [id number]) Vital Signs - Monitor Interface Temperature (97.6 F-99.6 F) 97.9 F Temperature Source Oral Pulse Rate (60-100) 78 Respiratory Rate (12-18) 18 Blood Pressure 139/84 Blood Pressure Mean (mmHg) 102 Blood Pressure Source Automatic Cuff Pulse Oximetry (90-100) 92 Oxygen Delivery Method Room Air Document 08/07/22 16:00 [email or web address] (Rec: 08/07/22 17:07 SMICA7 [id number]) Vital Signs - Monitor Interface Temperature (97.6 F-99.6 F) 98.9 F Temperature Source Oral Pulse Rate (60-100) 77 Respiratory Rate (12-18) 18 Blood Pressure 168/70 Blood Pressure Mean (mmHg) 102 Blood Pressure Source Automatic Cuff Pulse Oximetry (90-100) 90 Document 08/07/22 20:00 ABBBR (Rec: 08/07/22 20:37 ABBBR [id number]) Vital Signs - Monitor Interface Temperature (97.6 F-99.6 F) 98.2 F Temperature Source Oral Pulse Rate (60-100) 79 Respiratory Rate (12-18) 17 Blood Pressure 164/70 Blood Pressure Mean (mmHg) 101 Blood Pressure Source Automatic Cuff Pulse Oximetry (90-100) 91 Oxygen Delivery Method Room Air Document 08/08/22 00:00 SRL (Rec: 08/08/22 00:28 SRL [id number]) Vital Signs - Monitor Interface Temperature (97.6 F-99.6 F) 98.9 F Temperature Source Oral Pulse Rate (60-100) 71 Respiratory Rate (12-18) 17 Blood Pressure 151/78 Blood Pressure Mean (mmHg) 102 Blood Pressure Source Automatic Cuff Pulse Oximetry (90-100) 94 Oxygen Delivery Method Room Air Document 08/08/22 04:00 SRL (Rec: 08/08/22 04:18 SRL [id number]) Vital Signs - Monitor Interface Temperature (97.6 F-99.6 F) 97.8 F Temperature Source Oral Pulse Rate (60-100) 73 Respiratory Rate (12-18) 17 Blood Pressure 154/79 Blood Pressure Mean (mmHg) 104 Blood Pressure Source Automatic Cuff Pulse Oximetry (90-100) 92 Oxygen Delivery Method Room Air Document 08/08/22 07:42 CR (Rec: 08/08/22 07:43 CR [id number]) Vital Signs - Monitor Interface Temperature (97.6 F-99.6 F) 97.5 F L Pulse Rate (60-100) 71 Respiratory Rate (12-18) 15 Blood Pressure 144/69 Blood Pressure Mean (mmHg) 94 Pulse Oximetry (90-100) 93 Oxygen Delivery Method Room Air Document 08/08/22 11:38 CR (Rec: 08/08/22 11:39 CR [id number]) Vital Signs - Monitor Interface Temperature (97.6 F-99.6 F) 97.9 F Pulse Rate (60-100) 74 Respiratory Rate (12-18) 17 Blood Pressure 185/80 Blood Pressure Mean (mmHg) 115 Pulse Oximetry (90-100) 92 Document 08/08/22 15:40 CR (Rec: 08/08/22 15:41 CR [id number]) Vital Signs - Monitor Interface Temperature (97.6 F-99.6 F) 98.0 F Pulse Rate (60-100) 74 Respiratory Rate (12-18) 15 Blood Pressure 154/81 Blood Pressure Mean (mmHg) 105 Pulse Oximetry (90-100) 15 L Document 08/08/22 20:00 KELCH2 (Rec: 08/08/22 22:53 KELCH2 [id number]) Vital Signs - Monitor Interface Temperature (97.6 F-99.6 F) 98.4 F Temperature Source Oral Pulse Rate (60-100) 78 Respiratory Rate (12-18) 26 H Blood Pressure 168/78 Blood Pressure Mean (mmHg) 108 Blood Pressure Source Automatic Cuff Blood Pressure Position Semi Fowlers Pulse Oximetry (90-100) 90 Oxygen Delivery Method Room Air Document 08/09/22 00:00 KELCH2 (Rec: 08/09/22 00:57 KELCH2 [id number]) Vital Signs - Monitor Interface Temperature (97.6 F-99.6 F) 99.1 F Temperature Source Oral Pulse Rate (60-100) 77 Respiratory Rate (12-18) 24 H Blood Pressure 134/63 Blood Pressure Mean (mmHg) 86 Blood Pressure Source Automatic Cuff Blood Pressure Position Semi Fowlers Pulse Oximetry (90-100) 84 L Oxygen Delivery Method Nasal Cannula Oxygen Flow Rate 2 Document 08/09/22 04:00 KELCH2 (Rec: 08/09/22 04:42 KELCH2 [id number]) Vital Signs - Monitor Interface Temperature (97.6 F-99.6 F) 98.0 F Temperature Source Oral Pulse Rate (60-100) 61 Respiratory Rate (12-18) 20 H Blood Pressure 149/70 Blood Pressure Mean (mmHg) 96 Blood Pressure Source Automatic Cuff Blood Pressure Position Semi Fowlers Pulse Oximetry (90-100) 97 Oxygen Delivery Method Nasal Cannula Oxygen Flow Rate 2 Document 08/09/22 07:34 CR (Rec: 08/09/22 07:34 CR [id number]) Vital Signs - Monitor Interface Temperature (97.6 F-99.6 F) 98.0 F Pulse Rate (60-100) 58 L Respiratory Rate (12-18) 16 Blood Pressure 120/80 Blood Pressure Mean (mmHg) 93 Pulse Oximetry (90-100) 90 Oxygen Delivery Method Nasal Cannula Document 08/09/22 12:00 CR (Rec: 08/09/22 12:08 CR [email or web address]) Vital Signs - Monitor Interface Temperature (97.6 F-99.6 F) 98.0 F Pulse Rate (60-100) 67 Respiratory Rate (12-18) 16 Blood Pressure 147/67 Blood Pressure Mean (mmHg) 93 Pulse Oximetry (90-100) 90 Document 08/09/22 15:44 CR (Rec: 08/09/22 15:44 CR [id number]) Vital Signs - Monitor Interface Temperature (97.6 F-99.6 F) 98.0 F Pulse Rate (60-100) 63 Respiratory Rate (12-18) 17 Blood Pressure 101/57 Blood Pressure Mean (mmHg) 71 Pulse Oximetry (90-100) 95 Oxygen Delivery Method Nasal Cannula Document 08/09/22 20:00 KELCH2 (Rec: 08/09/22 21:55 KELCH2 [id number]) Vital Signs - Monitor Interface Temperature (97.6 F-99.6 F) 98.4 F Temperature Source Oral Pulse Rate (60-100) 67 Respiratory Rate (12-18) 18 Blood Pressure 133/65 Blood Pressure Mean (mmHg) 87 Blood Pressure Source Automatic Cuff Blood Pressure Position Semi Fowlers Pulse Oximetry (90-100) 96 Oxygen Delivery Method Nasal Cannula Oxygen Flow Rate 2 Document 08/10/22 00:00 EM (Rec: 08/10/22 00:25 EM [id number]) Vital Signs - Monitor Interface Temperature (97.6 F-99.6 F) 97.6 F Temperature Source Oral Pulse Rate (60-100) 59 L Respiratory Rate (12-18) 16 Blood Pressure 111/58 Blood Pressure Mean (mmHg) 75 Blood Pressure Source Automatic Cuff Blood Pressure Position Left Lateral Pulse Oximetry (90-100) 91 Oxygen Delivery Method Nasal Cannula Oxygen Flow Rate 2 Document 08/10/22 03:51 EM (Rec: 08/10/22 03:52 EM [id number]) Vital Signs - Monitor Interface Temperature (97.6 F-99.6 F) 97.9 F Temperature Source Oral Pulse Rate (60-100) 60 Respiratory Rate (12-18) 15 Blood Pressure 115/62 Blood Pressure Mean (mmHg) 79 Blood Pressure Source Automatic Cuff Blood Pressure Position Left Lateral Pulse Oximetry (90-100) 93 Oxygen Delivery Method Nasal Cannula Document 08/10/22 08:00 NEASH (Rec: 08/10/22 09:02 NEASH [id number]) Vital Signs - Monitor Interface Temperature (97.6 F-99.6 F) 97.2 F L Temperature Source Oral Pulse Rate (60-100) 60 Respiratory Rate (12-18) 16 Blood Pressure 94/58 Blood Pressure Mean (mmHg) 70 Blood Pressure Source Automatic Cuff Blood Pressure Position Semi Fowlers Pulse Oximetry (90-100) 96 Oxygen Delivery Method Nasal Cannula Oxygen Flow Rate 2 Document 08/10/22 12:00 NEASH (Rec: 08/10/22 13:45 NEASH [id number]) Vital Signs - Monitor Interface Temperature (97.6 F-99.6 F) 97.4 F L Temperature Source Oral Pulse Rate (60-100) 65 Respiratory Rate (12-18) 16 Blood Pressure 101/59 Blood Pressure Mean (mmHg) 73 Blood Pressure Source Automatic Cuff Blood Pressure Position Semi Fowlers Pulse Oximetry (90-100) 96 Oxygen Delivery Method Nasal Cannula Oxygen Flow Rate 2 Document 08/10/22 16:00 NEASH (Rec: 08/10/22 18:00 NEASH [id number]) Vital Signs - Monitor Interface Temperature (97.6 F-99.6 F) 98.1 F Temperature Source Oral Pulse Rate (60-100) 65 Respiratory Rate (12-18) 20 H Blood Pressure 122/57 Blood Pressure Mean (mmHg) 78 Blood Pressure Source Automatic Cuff Blood Pressure Position Supine Pulse Oximetry (90-100) 97 Oxygen Delivery Method Nasal Cannula Oxygen Flow Rate 2 Document 08/10/22 20:00 HH (Rec: 08/10/22 20:58 [id number]ital Signs - Monitor Interface Temperature (97.6 F-99.6 F) 98.6 F Temperature Source Oral Pulse Rate (60-100) 64 Respiratory Rate (12-18) 17 Blood Pressure 106/50 Blood Pressure Mean (mmHg) 68 Blood Pressure Source Automatic Cuff Blood Pressure Position Supine Pulse Oximetry (90-100) 97 Oxygen Delivery Method Nasal Cannula Oxygen Flow Rate 2 Document 08/10/22 23:45 ABBBR (Rec: 08/10/22 23:48 ABBBR [id number]) Vital Signs - Monitor Interface Temperature (97.6 F-99.6 F) 98.2 F Temperature Source Oral Pulse Rate (60-100) 66 Respiratory Rate (12-18) 16 Blood Pressure 133/64 Blood Pressure Mean (mmHg) 87 Blood Pressure Source Automatic Cuff Pulse Oximetry (90-100) 98 Oxygen Delivery Method Nasal Cannula Oxygen Flow Rate 2 Document 08/11/22 03:42 ABBBR (Rec: 08/11/22 03:44 ABBBR [id number]) Vital Signs - Monitor Interface Temperature (97.6 F-99.6 F) 97.7 F Temperature Source Oral Pulse Rate (60-100) 60 Respiratory Rate (12-18) 14 Blood Pressure 122/56 Blood Pressure Mean (mmHg) 78 Blood Pressure Source Automatic Cuff Pulse Oximetry (90-100) 100 Oxygen Delivery Method Nasal Cannula Oxygen Flow Rate 2 Document 08/11/22 08:00 CR (Rec: 08/11/22 08:30 CR [id number]) Vital Signs - Monitor Interface Temperature (97.6 F-99.6 F) 98.0 F Pulse Rate (60-100) 60 Respiratory Rate (12-18) 16 Blood Pressure 152/78 Blood Pressure Mean (mmHg) 102 Pulse Oximetry (90-100) 99 Oxygen Delivery Method Nasal Cannula Document 08/11/22 12:00 RAB (Rec: 08/11/22 13:18 RAB [id number]) Vital Signs - Monitor Interface Temperature (97.6 F-99.6 F) 97.8 F Temperature Source Oral Pulse Rate (60-100) 68 Respiratory Rate (12-18) 17 Blood Pressure 137/71 Blood Pressure Mean (mmHg) 93 Blood Pressure Source Automatic Cuff Pulse Oximetry (90-100) 92 Oxygen Delivery Method Room Air Document 08/11/22 16:00 RAB (Rec: 08/11/22 17:23 RAB [id number]) Vital Signs - Monitor Interface Temperature (97.6 F-99.6 F) 97.6 F Temperature Source Oral Pulse Rate (60-100) 68 Respiratory Rate (12-18) 17 Blood Pressure 137/71 Blood Pressure Mean (mmHg) 93 Blood Pressure Source Automatic Cuff Pulse Oximetry (90-100) 92 Oxygen Delivery Method Room Air Document 08/11/22 20:00 KELCH2 (Rec: 08/11/22 20:37 KELCH2 [email or web address]) Vital Signs - Monitor Interface Temperature (97.6 F-99.6 F) 98.1 F Temperature Source Oral Pulse Rate (60-100) 63 Respiratory Rate (12-18) 18 Blood Pressure 143/70 Blood Pressure Mean (mmHg) 94 Blood Pressure Source Automatic Cuff Blood Pressure Position Semi Fowlers Pulse Oximetry (90-100) 94 Oxygen Delivery Method Room Air Document 08/12/22 00:00 KELCH2 (Rec: 08/12/22 00:34 KELCH2 [email or web address]) Vital Signs - Monitor Interface Temperature (97.6 F-99.6 F) 97.7 F Temperature Source Oral Pulse Rate (60-100) 67 Respiratory Rate (12-18) 18 Blood Pressure 162/71 Blood Pressure Mean (mmHg) 101 Blood Pressure Source Automatic Cuff Blood Pressure Position Semi Fowlers Pulse Oximetry (90-100) 92 Oxygen Delivery Method Room Air Document 08/12/22 04:00 KELCH2 (Rec: 08/12/22 04:03 KELCH2 [email or web address]) Vital Signs - Monitor Interface Temperature (97.6 F-99.6 F) 98.3 F Temperature Source Oral Pulse Rate (60-100) 71 Respiratory Rate (12-18) 20 H Blood Pressure 164/79 Blood Pressure Mean (mmHg) 107 Blood Pressure Source Automatic Cuff Blood Pressure Position Semi Fowlers Pulse Oximetry (90-100) 92 Oxygen Delivery Method Room Air Document 08/12/22 07:24 KB (Rec: 08/12/22 07:25 KB [id number]) Vital Signs - Monitor Interface Temperature (97.6 F-99.6 F) 97.6 F Pulse Rate (60-100) 74 Respiratory Rate (12-18) 18 Blood Pressure 159/74 Blood Pressure Mean (mmHg) 102 Blood Pressure Source Automatic Cuff Pulse Oximetry (90-100) 94 Document 08/12/22 12:25 JA (Rec: 08/12/22 12:25 JA [id number]) Vital Signs - Monitor Interface Temperature (97.6 F-99.6 F) 97.4 F L Temperature Source Axillary Pulse Rate (60-100) 66 Respiratory Rate (12-18) 16 Blood Pressure 157/75 Blood Pressure Mean (mmHg) 102 Blood Pressure Source Automatic Cuff Blood Pressure Position Semi Fowlers Pulse Oximetry (90-100) 91 Oxygen Delivery Method Room Air Document 08/12/22 16:00 KB (Rec: 08/12/22 16:40 KB [id number]) Vital Signs - Monitor Interface Pulse Rate (60-100) 68 Respiratory Rate (12-18) 18 Blood Pressure 154/78 Blood Pressure Mean (mmHg) 103 Blood Pressure Source Automatic Cuff Pulse Oximetry (90-100) 96 Document 08/12/22 20:00 EC2 (Rec: 08/12/22 20:07 EC2 [id number]) Vital Signs - Monitor Interface Temperature (97.6 F-99.6 F) 98.2 F Temperature Source Oral Pulse Rate (60-100) 70 Respiratory Rate (12-18) 17 Blood Pressure 163/74 Blood Pressure Mean (mmHg) 103 Blood Pressure Source Automatic Cuff Blood Pressure Position Left Lateral Pulse Oximetry (90-100) 93 Oxygen Delivery Method Room Air Document 08/13/22 00:00 EC2 (Rec: 08/13/22 00:51 EC2 [id number]) Vital Signs - Monitor Interface Temperature (97.6 F-99.6 F) 98.3 F Temperature Source Oral Pulse Rate (60-100) 68 Respiratory Rate (12-18) 16 Blood Pressure 137/67 Blood Pressure Mean (mmHg) 90 Blood Pressure Source Automatic Cuff Blood Pressure Position Left Lateral Pulse Oximetry (90-100) 90 Oxygen Delivery Method Room Air Document 08/13/22 03:56 EC2 (Rec: 08/13/22 04:00 EC2 [id number]) Vital Signs - Monitor Interface Temperature (97.6 F-99.6 F) 98.3 F Temperature Source Oral Pulse Rate (60-100) 72 Respiratory Rate (12-18) 16 Blood Pressure 151/69 Blood Pressure Mean (mmHg) 96 Blood Pressure Source Automatic Cuff Blood Pressure Position Left Lateral Pulse Oximetry (90-100) 91 Oxygen Delivery Method Nasal Cannula Oxygen Flow Rate 2 Document 08/13/22 08:00 RAB (Rec: 08/13/22 09:46 RAB [id number]) Vital Signs - Monitor Interface Temperature (97.6 F-99.6 F) 98.0 F Temperature Source Oral Pulse Rate (60-100) 69 Respiratory Rate (12-18) 17 Blood Pressure 160/86 Blood Pressure Mean (mmHg) 110 Blood Pressure Source Automatic Cuff Pulse Oximetry (90-100) 95 Oxygen Delivery Method Room Air Wound Assessment Start: 08/04/22 15:41 Freq: QSHIFT Status: Active Protocol: WOUND Document 08/04/22 16:44 CB (Rec: 08/04/22 16:45 CB [id number]) Wound Assessment Lower Back Wound Type Acute Surgical Incision Dressing Status Dry & Intact Surrounding Tissue Appearance [place] Drainage Description Serous Drainage Amount None Drainage Odor No Odor Document 08/04/22 20:00 SC (Rec: 08/05/22 01:12 MI [id number]) Wound Assessment Lower Back Wound Type Acute Surgical Incision Dressing Status Dry & Intact Document 08/05/22 10:45 (Rec: 08/05/22 10:48 [id number]) Wound Assessment Lower Back Wound Type Contusion Document 08/05/22 20:00 SC (Rec: 08/06/22 01:32 MI [id number]) Wound Assessment Lower Back Wound Type Contusion Number of Saline Flushes Used 2 Document 08/06/22 08:00 (Rec: 08/06/22 12:12 [id number]) Wound Assessment Lower Back Wound Type Acute Surgical Incision Dressing Status Dry & Intact Surrounding Tissue Temperature Warm Drainage Description None Document 08/06/22 21:31 SC (Rec: 08/06/22 21:32 SC [email or web address]) Wound Assessment Lower Back Wound Type Acute Surgical Incision Dressing Status Dry & Intact Document 08/07/22 08:00 LB (Rec: 08/07/22 11:47 LB [email or web address]) Wound Assessment Lower Back Wound Type Acute Surgical Incision Dressing Status Dry & Intact Document 08/07/22 20:00 AC (Rec: 08/07/22 23:53 AC [id number]) Wound Assessment Lower Back Wound Type Acute Surgical Incision Dressing Status Dry & Intact Number of Saline Flushes Used 2 Document 08/08/22 08:00 LB (Rec: 08/08/22 19:48 LB [id number]) Wound Assessment Lower Back Wound Type Acute Surgical Incision Dressing Status Open to Air Number of Saline Flushes Used 2 Document 08/08/22 20:00 AC (Rec: 08/08/22 21:43 AC [id number]) Wound Assessment Lower Back Wound Type Acute Surgical Incision Dressing Status Open to Air Number of Saline Flushes Used 2 Document 08/09/22 08:00 SK (Rec: 08/09/22 15:12 SK [id number]) Wound Assessment Lower Back Wound Type Acute Surgical Incision Dressing Status Open to Air Document 08/09/22 19:59 AC (Rec: 08/09/22 20:05 AC [id number]) Wound Assessment Lower Back Wound Type Acute Surgical Incision Dressing Status Open to Air Number of Saline Flushes Used 2 Document 08/10/22 08:00 [id number] (Rec: 08/10/22 16:33 [id number] [id number]) Wound Assessment Lower Back Wound Type Acute Surgical Incision Dressing Status Open to Air Number of Saline Flushes Used 2 Document 08/10/22 20:00 EM (Rec: 08/10/22 20:56 EM [email or web address]) Wound Assessment Lower Back Wound Type Acute Surgical Incision Dressing Status Open to Air Surrounding Tissue Appearance [place] Surrounding Tissue Temperature Warm Drainage Description None Drainage Amount None Drainage Odor No Odor Document 08/11/22 08:00 [id number] (Rec: 08/11/22 16:49 [email or web address] [id number]) Wound Assessment Lower Back Wound Type Acute Surgical Incision Dressing Status Open to Air Surrounding Tissue Appearance [place] Surrounding Tissue Temperature Warm Drainage Description None Drainage Amount None Drainage Odor No Odor Number of Saline Flushes Used 2 Document 08/11/22 20:00 FM (Rec: 08/11/22 22:30 FM [id number]) Wound Assessment Lower Back Wound Type Acute Surgical Incision Dressing Status Open to Air Surrounding Tissue Appearance [place] Surrounding Tissue Temperature Warm Drainage Description None Drainage Amount None Drainage Odor No Odor Number of Saline Flushes Used 2 Document 08/12/22 08:00 [id number] (Rec: 08/12/22 16:24 [email or web address] [id number]) Wound Assessment Lower Back Wound Type Acute Surgical Incision Dressing Status Open to Air Surrounding Tissue Appearance [place] Surrounding Tissue Temperature Warm Drainage Description None Drainage Amount None Drainage Odor No Odor Number of Saline Flushes Used 2 Document 08/12/22 20:00 FM (Rec: 08/12/22 21:52 FM [email or web address]) Wound Assessment Lower Back Wound Type Acute Surgical Incision Dressing Status Open to Air Surrounding Tissue Appearance [place] Surrounding Tissue Temperature Warm Drainage Description None Drainage Amount None Drainage Odor No Odor Number of Saline Flushes Used 2 Document 08/13/22 07:50 KN (Rec: 08/13/22 07:50 KN [id number]) Wound Assessment Lower Back Wound Type Acute Surgical Incision Dressing Status Open to Air Surrounding Tissue Appearance [place] Surrounding Tissue Temperature Warm Drainage Description None Drainage Amount None Drainage Odor No Odor Number of Saline Flushes Used 2
--- NOTE | 2022-08-13 13:15 | PC.NURSE ---
Patient states that she is depressed because she can not see her dog. I asked the patient if she was suicidal and she stated, [facility] if [facility] was [facility] I would go [facility] so NO I am not suicidal. notified.
--- NOTE | 2022-08-13 13:36 | P.DS_ITS ---
Discharge Providers Date of Admission: 08/04/22 10:51 Date of Discharge: August 13, 2022 Attending Provider at Admission: Papa Beal MD Attending Provider at Discharge: Vitor Gama Primary Care Provider: Deepa Kaufman NP Diagnoses at Discharge Discharge Diagnosis (1) Intractable pain: Status: Acute (2) Left hip pain: Status: Acute (3) Left low back pain: Status: Acute (4) Lumbar stenosis with neurogenic claudication: Status: Acute (5) History of left hip replacement: Status: Acute (6) History of back surgery: Status: Acute (7) History of CAD (coronary artery disease): Status: Acute (8) History of hypothyroidism: Status: Acute (9) History of hyperlipidemia: Status: Acute (10) History of depression: Status: Acute (11) History of hypertension: Status: Acute (12) History of type 2 diabetes mellitus: Status: Acute (13) Acute encephalopathy: Status: Acute (14) Depression: Status: Acute (15) Dysphagia: Status: Acute Reason for Visit Reason for Visit: HIP PAIN Hospital Course Hospital Course 82-year-old lady with history of CKD, AB, depression, L3-4 laminectomy, also remote history of hip replacement, was admitted and treated due to intractable left hip pain back pain with severe pain with attempted ambulation. On attempted pain control, also noted and confusion with attempted pain control with Dilaudid. She was assessed by orthopedics, both for assessment after laminectomy, as well as assessment hip prosthesis, due to complicated prosthesis if revision was needed recommendation was this would need to take place at a higher level of care institution with regards to the hip which she declined. No additional surgical intervention recommended with regards to the spine, pain control, rehabilitation and follow-up with orthopedics in office. Multimodal pain control was undertaken while in hospital, she also had a palliative care consultation. Her pain gradually has been improving with combination of acetaminophen, baclofen, celecoxib, oxycodone and lidocaine patch. She is continued on treatment for depression. She still having some pain. She has been working with therapy, initially required quite a bit of assistance, up until yesterday also required 2 person assist. He then was noted to be getting up on her. Certainly this were discussed with her was not safe due to gait instability, however, and she is at risk of fall and injury as discussed with her. Arrangements rehabilitation have been underway. Today she decided she wants to leave AGAINST MEDICAL ADVICE stating concern with regards to her dog and stating that she is getting depressed staying in the hospital without seeing her dog. When offered to try to arrange a visit of the dog here, she is still wants to go home to be with it since states it has been having to stay with a number of different people causing it distress. She is noted to be getting better today, but again is at risk of fall and injury. He is referred for follow-up with orthopedics, is also referred for follow-up with behavioral health care. She does not have suicidal ideation or intention, stating she would not do that as she would want to make sure she goes to [facility]. While in the hospital assessed with regards to dysphagia, with noted no evidence of aspiration on MBS, but abnormal dilation of percent of the esophagus with retention of the fluid and spasm. Follow-up barium swallow evaluation with hypocontractility of the entire esophagus with dilation and numerous diverticula which has worsened since 2012. Marked narrowing of the distal esophagus probably at the GE junction. Moderate hiatal hernia. Please follow-up with her regarding this and discuss referral to surgery. Physical Exam Narrative: Sitting up in chair. Const: COMMON NORMALS: patient oriented x3 and alert GENERAL APPEARANCE: cooperative ORIENTATION/CONSCIOUSNESS: Yes awake HENMT: COMMON NORMALS: oropharynx normal Neck/C-Spine: COMMON NORMALS: no JVD Resp: COMMON NORMALS: normal respiratory effort and clear to auscultation bilaterally AUSCULTATION: clear to auscultation bilaterally Cardio: COMMON NORMALS: no JVD, regular rhythm, S1 normal heart sound present, S2 normal heart sound present and No murmurs present (Cardio) RHYTHM: regular rhythm HEART SOUNDS: S1 normal heart sound present and S2 normal heart sound present GI: COMMON NORMALS: Normal to inspection, nondistended, normoactive bowel sounds present, Soft to palpation and non-tender PALPATION: Yes Soft to palpation Extremity: COMMON NORMALS: no pedal edema Neuro: COMMON NORMALS: patient oriented x3 and moves all extremities SENSORIUM/ORIENTATION: Yes alert Urinary Catheter Management: Sarmiento: Cath Placed During This Visit: yes Reason for Continuing Indwelling Catheter: Other Urinary Catheter Date of Insertion: 08/04/22 Urinary Catheter Time of Insertion: 15:13 Discharge Data Studies Completed and Pending Completed Studies During Hospitalization Category Date Time Status CT hip LT wo con* [id number] Stat Cat Scan 08/04/22 05:[address] lumbar spine w con [id number] Stat Cat Scan 08/04/22 05:56 Completed [place] barium swallow [id number] Routine Exams 08/12/22 Completed Modified barium swallow [FL barium swallow modifd [id number] Exams 08/09/22 10:45 Completed ] Routine XR chest 1V portable [id number] Routine Exams 08/05/22 10:44 Completed XR chest 1V portable [id number] Routine Exams 08/06/22 13:24 Completed XR chest 1V portable [id number] Routine Exams 08/11/22 08:21 Completed XR hip LT 2-3V wo/w pel* [id number] Stat Exams 08/04/22 05:19 Completed MR lumbar spine wo con* [id number] Stat MRI 08/04/22 10:42 Completed NM bone 3 phase [id number] Routine Nuc Med 08/06/22 10:09 [place] [id number] Stat Ultrasound 08/04/22 10:47 Completed US renal BI* [id number] Stat Ultrasound 08/04/22 10:59 Completed Radiology Impressions Hip/Pelvis X-Ray 08/04/22 05:19 IMPRESSION: 1. There are no acute osseous findings. Hip CT 08/04/22 05:56 IMPRESSION: 1. Left hip arthroplasty with long stem endo femoral component. 2. Profound osteopenia. 3. Marked expansion the medullary space between the bone prosthesis interface which could be due to long-term bone demineralization and or combination component loosening. 4. 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 5. Lucency within multiple areas of thin cortical bone at the proximal diaphysis which although could reflect subtle areas of cortical fracture could also be due to profound bone absence and distinction would be difficult. On the basis of appearance, the patient is likely at high risk for displaced fracture injury. Lumbar Spine CT 08/04/22 05:56 IMPRESSION: 1. Oval elongated spinal canal clustered collection of gas and or fluid at the operative site of the laminectomy defect at L3 and posterior to the thecal sac within the spinal canal at L3 and L3-L4. While findings could be postoperative reflecting a component of postoperative hemorrhage or fluid infectious etiology or abscess would not be excluded. Depending on the clinical scenario MRI with gadolinium is recommended. 2. Laminectomy defect at L3 on the left. 3. Diffuse posterior paraspinal and subcutaneous soft tissue ill-defined fluid and soft tissue stranding changes with a small collection of gas in the subcutaneous soft tissue space at a level of L2-L3. 4. Relatively stable numerous wedge and compression deformities of T12 and the lumbar spine as compared to recent MRI. 5. Advanced degenerative changes throughout the lumbar spine with multilevel moderate to severe canal stenosis. ADDENDUM: 08/04/22 0916 THIS REPORT CONTAINS FINDINGS THAT MAY BE CRITICAL TO PATIENT CARE. The findings were verbally communicated via telephone conference with Dr. Davidson by Dr. Tai on 08/04/2022 9:[address] [employer]PERINTENDENT. The results were acknowledged and understood. Lumbar Spine MRI 08/04/22 10:42 IMPRESSION: Postoperative changes as above. Operative site small left posterior extradural nonspecific fluid collection (secondary left lateral recess and spinal canal stenosis) without specific evidence of infection. Contrast-enhanced imaging might add additional useful information if clinically needed. Multilevel spinal stenosis. Neural foraminal stenoses as above. Please see additional findings as above. Venous Duplex 08/04/22 10:47 IMPRESSION: No evidence of deep vein thrombosis. Renal Ultrasound 08/04/22 10:59 IMPRESSION: Moderate left pelvicaliectasis/hydronephrosis Bone Scan Nuclear Medicine 08/06/22 10:09 IMPRESSION: 1. Normal blood flow and blood pool images. No evidence of osteomyelitis. 2. Diffuse symmetric cortical uptake about the LEFT femoral vika prosthesis compatible with chronic bony remodeling and loosening 3. No suspicious areas of activity LEFT femur or hip to indicate acute stress fracture. 4. Prior postoperative changes LEFT TKA 5. Prior vertebroplasty T12. Modified Barium Swallow 08/09/22 10:45 IMPRESSION: 1. Modified barium swallow demonstrating no evidence of aspiration or penetration into the laryngeal inlet. 2. Abnormal dilatation of the lower 50% of the esophagus with retention of the fluid and spasm. This may represent achalasia. Chest X-Ray 08/11/22 08:21 IMPRESSION: No confluent infiltrates in the lungs. Barium Swallow X-Ray 08/12/22 00:00 Impression: 1. Very poor contractility of the entire esophagus with dilatation and numerous diverticula which has worsened since 2011. 2. Marked narrowing of the distal esophagus probably at the gastroesophageal junction. 3. Moderate hiatal hernia. Laboratory Results WBC 6.0 10^3/uL (4.0-10.0) 08/11/22 09: RBC 3.66 10^6/uL (4.1-5.3) L 08/11/22 09: Hgb 11.2 g/dL (11.5-15.3) L 08/11/22 09: Hct 36.4 % (37.0-47.0) L 08/11/22: MCV 99.5 fl (81-99) H 08/11/22: MCH 30.6 pg (28.0-34.0) 08/11/22: MCHC 30.8 g/dL (30.0-36.0) 08/11/22: RDW 14.0 % (12.1-15.1) 08/11/22: Plt Count 234 10^3/cmm (130-400) 08/11/22: MPV 11.3 fL (7.4-10.4) H 08/11/22 09: Neut % (Auto) 54.2 % 08/11/22: Lymph % (Auto) 29.1 % 08/11/22: [place] % (Auto) 8.9 % 08/11/22: Eos % (Auto) 5.9 % 08/11/22: Baso % (Auto) 0.7 % 08/11/22: Neut # (Auto) 3.24 10^3/uL (1.8-7.7) 08/11/22: Lymph # (Auto) 1.7 10^3/uL (0.8-4.8) 08/11/22 09: [place] # (Auto) 0.5 10^3/uL (0.2-0.9) 08/11/22: Eos # (Auto) 0.4 10^3/uL (0.0-0.8) 08/11/22 09: Baso # (Auto) 0.0 10^3/uL (0.0-0.1) 08/11/22: Nucleated RBC % (auto) 0 % 08/11/22:32 Nucleated RBCs # 0.0 /100WBC 08/11/22 09:32 ESR 57 mm/hr (0-15) H 08/04/22 05:20 Sodium 138 mmol/L (136-145) 08/06/22 14:10 Potassium 4.0 mmol/L (3.5-5.1) 08/06/22 14:10 Chloride 100 mmol/L (98-107) 08/06/22 14:10 Carbon Dioxide 21 mmol/L (22-29) L 08/06/22 14:10 Anion Gap 21.0 (5-19) H 08/06/22 14:10 BUN 19 mg/dL (8-23) 08/06/22 14:10 Creatinine 0.7 mg/dL (0.5-0.9) 08/06/22 14:10 GFR Calculation Not Reportable 08/06/22 14:10 Glucose 141 mg/dL (65-115) H 08/06/22 14:10 Calculated Osmolality 291 mOsm/kg (285-295) 08/06/22 14:10 Lactic Acid 0.6 mmol/L (0.5-2.2) 08/04/22 12:56 Lactate 1.1 mmol/L (0.5-2.2) 08/06/22 14:19 Calcium 9.1 mg/dL (8.5-10.5) 08/06/22 14:10 Phosphorus 2.4 mg/dL (2.5-4.5) L 08/06/22 14:10 Magnesium 2.0 mg/dL (1.7-2.3) 08/06/22 14:10 Ferritin 120 ng/mL (15-150) 08/04/22 05:20 Total Bilirubin 0.4 mg/dL (0.15-1.2) 08/06/22 14:10 AST 26 U/L (0-32) 08/06/22 14:10 ALT 39 U/L (0-33) H 08/06/22 14:10 Alkaline Phosphatase 166 U/L (35-105) H 08/06/22 14:10 Creatine Kinase 93 U/L (26-192) 08/04/22 05:20 Troponin T Baseline 12 ng/L (0-10) H 08/06/22 14:10 Troponin T 120 Minute 12.74 ng/L (0-10) H 08/06/22 16:10 Delta Troponin T 0.74 ABS# (0-10) 08/06/22 16:10 Troponin T Hi Sens 6Hr 11.93 ng/L (0-10) H 08/06/22 19:58 Troponin T Hi Sens 6Hr Delta -0.07 ng/L (0-12) L 08/06/22 19:58 C-Reactive Protein 24.7 mg/L (0.0-4.9) H 08/11/22 09:32 NT-Pro-B Natriuret Pep 342 pg/mL (0-450) 08/11/22 09:32 Total Protein 6.9 g/dL (6.6-8.7) 08/06/22 14:10 Albumin 3.4 g/dL (3.5-5.2) L 08/06/22 14:10 Globulin 3.5 g/dL (1.3-4.6) 08/06/22 14:10 Procalcitonin 0.13 ng/mL (0-0.5) 08/11/22 09:32 TSH 4.04 uIU/mL (0.27-4.20) 08/04/22 05:20 Urine Color Yellow (Yellow) 08/06/22 17:20 Urine Appearance Clear (CLEAR) 08/06/22 17:20 Urine pH 5 (5-7) 08/06/22 17:20 Ur Specific [place] 1.000 (1.005-1.030) L 08/06/22 17:20 Urine Protein 1+ (Negative) H 08/06/22 17:20 Urine Glucose (UA) Norm (Normal) 08/06/22 17:20 Urine Ketones 2+ (Negative) H 08/06/22 17:20 Urine Blood 3+ (Negative) H 08/06/22 17:20 Urine Nitrate Negative (Negative) 08/06/22 17:20 Urine Bilirubin 1+ (Negative) H 08/06/22 17:20 Urine Urobilinogen Norm mg/dL (Negative) 08/06/22 17:20 Ur Leukocyte Esterase Negative (Negative) 08/06/22 17:20 Urine RBC 0-4 /hpf (0-2) H 08/06/22 17:20 Urine WBC 0-4 /hpf (0-5) H 08/06/22 17:20 Ur Squamous Epith Cells Rare /hpf (0-5) 08/06/22 17:20 Amorphous Sediment Not Reportable 08/06/22 17:20 Urine Bacteria Trace /hpf (NONE) 08/06/22 17:20 Hyaline Casts 0-4 /lpf H 08/06/22 17:20 Urine Mucus Trace /hpf 08/06/22 17:20 Vitals Last Vital Signs Temp 98.0 F 08/13/22 08:00 Pulse 69 08/13/22 08:00 Resp 17 08/13/22 08:00 BP 160/86 08/13/22 08:00 Pulse Ox 95 08/13/22 08:00 O2 Del Method 08/13/22 08:00 O2 Flow Rate 2 08/13/22 08:00 Discharge Plan Discharge Patient Disposition: Left Against Medical Advice Condition: Stable Prescriptions: New polyethylene glycol 3350 17 gram Powder In Packet 17 g PO DAILY Qty: 90 0RF lidocaine 5 % Adhesive Patch,Medicated 1 patch topical [id number] Qty: 14 0RF acetaminophen 325 mg Tablet 650 mg PO Q6H PRN (Reason: Mild/Mod Pain Or Temp >/= 101) Qty: 90 0RF baclofen 10 mg Tablet 10 mg PO QID PRN (Reason: hip pain, back pain) Qty: 30 0RF gabapentin 300 mg Capsule 300 mg PO Q12H Qty: 30 0RF celecoxib 200 mg Capsule 200 mg PO BID PRN (Reason: pain) Qty: 14 0RF Continued sertraline 200 mg capsule 200 mg PO QAM atorvastatin 40 mg tablet 40 mg PO QAM carvedilol 3.125 mg tablet 3.125 mg PO QAM Rx Instructions: must administer with a meal/food aspirin 81 mg tablet,delayed release (DR/EC) 81 mg PO DAILY pantoprazole 40 mg tablet,delayed release (DR/EC) 40 mg PO QAM hydrocodone-acetaminophen 5-325 mg tablet 1 - 2 tab PO .Q4-6H Qty: 40 0RF levothyroxine 112 mcg tablet 112 mcg PO QAM Discontinued metoprolol tartrate 25 mg tablet 25 mg PO QAM Discharge Orders: Discharge Order (Routine); Ordered 08/13/22 Ordered By: Vitor Gama Referrals: [facility] [Provider Group] - 1 week (Depression) Celestine Tapia DO [Physician] - 08/15/22 2:15 pm Deepa Kaufman NP [Primary Care Provider] - 09/09/22 1:30 pm Discharge Diet: As Directed Discharge Activity: Increase activity as tolerated, Limit activity as instructed, Use walker/crutches as instructed and As per PT/OT instructions Patient Instructions: Opioid Safety Activity Restrictions/Additional Instructions: Please note that you are leaving the hospital prematurely, before your treatment has been optimized, and before arrangements for rehabilitation could be made. You are at risk of falling down, at risk of injury including broken bones, bleeding, severe injury leading to potentially severe disability or . You are welcome to stay and continue hospitalization or to change her mind and return to the hospital. Otherwise please follow-up with her primary provider soon as possible. Call 911 in case of any concerning symptoms. Maintain dysphagia diet, full liquid, can try to advance to soft diet as, fol low-up with your primary doctor to discuss follow-up with surgery due to distention and poor mobility of your swallowing tube (esophagus). Prevent choking while eating or drinking as in the hospital. Discharge Attestations Time Spent in Discharge Care*: greater than 30 min Quality Metrics Clinical Quality Measures [ No reported AMI, CVA or VTE this stay] Coding Level of Care Code Acute Code for Chg Fwd Diagnoses Intractable pain R52 Left hip pain M25.552 Left low back pain M54.50 Lumbar stenosis with neurogenic claudication M48.062 History of left hip replacement Z96.642 History of back surgery Z98.890 History of CAD (coronary artery disease) Z86.79 History of hypothyroidism Z86.39 History of hyperlipidemia Z86.39 History of depression Z86.59 History of hypertension Z86.79 History of type 2 diabetes mellitus Z86.39 Acute encephalopathy G93.40 Depression F32.A Dysphagia R13.10
[2022-08-13 15:40] VITALS: BP 95/56; PULSE 66; RESP 17; TEMP 36.5; O2SAT 95
--- NOTE | 2022-08-13 15:44 | PC.NURSE ---
Reviewed discharge instruction with patient including new medications. Reminded patient that she needs to have full liquid diets as she has trouble swallowing. Patient states, I have to have a [employer] cheeseburger. I explained to the patient that she may choke and needs to stay on the full liquid diet. Patient and friend at bedside verbalized understanding. Patient wheel charied to private car.
== END 2022-08-13 15:52 | disposition home or self-care (01) | DRG 559 ==
LOC: ER 10:20 → MEDSURG 14:42
PROVIDERS: Admitting Provider Family Medicine; Emergency Provider Emergency Medicine; PCP Nurse Practitioner Family; Visit Provider Internal Medicine
DX: T84.84XA Pain due to internal orthopedic prosthetic devices, implants and grafts, initial encounter (principal); G92.8 Other toxic encephalopathy; N13.30 Unspecified hydronephrosis; Y79.8 Miscellaneous orthopedic devices associated with adverse incidents, not elsewhere classified; E11.22 Type 2 diabetes mellitus with diabetic chronic kidney disease; I12.9 Hypertensive chronic kidney disease with stage 1 through stage 4 chronic kidney disease, or unspecified chronic kidney disease; N18.9 Chronic kidney disease, unspecified; F41.1 Generalized anxiety disorder; F32.A Depression, unspecified; Z96.642 Presence of left artificial hip joint; R13.10 Dysphagia, unspecified; K44.9 Diaphragmatic hernia without obstruction or gangrene; Z96.652 Presence of left artificial knee joint; Z79.82 Long term (current) use of aspirin; Z79.891 Long term (current) use of opiate analgesic; I25.10 Atherosclerotic heart disease of native coronary artery without angina pectoris; Z95.5 Presence of coronary angioplasty implant and graft; E03.9 Hypothyroidism, unspecified; Z87.442 Personal history of urinary calculi; T40.2X5A Adverse effect of other opioids, initial encounter; M54.50 Low back pain, unspecified; Z98.890 Other specified postprocedural states; G89.29 Other chronic pain; Z66 Do not resuscitate
CPT/HCPCS: 36415; 51702; 71045; 72020; 72132; 72148; 73502; 73700; 74220; 74230; 76000; 76770; 78315; 80048; 80053; 81001; 82550; 82728; 83605; 83735; 83880; 84100; 84145; 84443; 84484; 85025; 85651; 86140; 87040; 92523; 92526; 92610; 92611; 93005; 93971; 96372; 96374; 96375; 96376; 97110; 97161; 97167; 97530; 97535; 99285; A9561; C9113; J0690; J0696; J1100; J1170; J1650; J1940; J2250; J2270; J2405; J2704; J3010; J3490; J7030; Q0162; Q9967

== ENCOUNTER → 2022-08-15 14:09 | Outpatient (BNVA) | payer MEDICARE, SELFPAY | PROVIDERS: PCP Nurse Practitioner Family; Visit Provider Orthopaedic Surgery | DX: Z47.89 Encounter for other orthopedic aftercare (principal) | CPT/HCPCS: 99024 ==

== ENCOUNTER → 2022-09-17 15:41 | Outpatient (BNVA) | payer MEDICARE, SELFPAY | PROVIDERS: PCP Nurse Practitioner Family; Visit Provider Physician Assistant | DX: Z98.890 Other specified postprocedural states (principal); M54.9 Dorsalgia, unspecified; M81.0 Age-related osteoporosis without current pathological fracture | CPT/HCPCS: 72110; 99024 ==

== ENCOUNTER 2022-10-09 09:31 | Outpatient (CLI) | payer MEDICARE, SELFPAY ==
--- NOTE | 2022-10-09 09:30 | MR_ITS ---
WS: [id number] MRI THORACIC SPINE noncontrast. HISTORY: continued pain COMPARISON: None available. TECHNIQUE: Multiplanar sequences are performed in sagittal and axial planes. Cervical spondylitic changes and stenosis. Prior vertebroplasty at T12. T12 mild anterior wedging by 20%. Mild compression deformity with concav ity in the superior endplate of L1. No retropulsion. Additional mild anterior wedging of T4 by 10%. N o acute fracture or acute marrow edema. T11 anterolisthesis by 4.2 mm. Signal within the cord is normal. T1-2: Mild foraminal narrowing. T2-3: Mild foraminal narrowing. T3-4: Mild facet arthritis and foraminal narrowing. T4-5: Normal. T5-6: Normal. T6-7: Normal. T7-8: Mild facet arthritis. T8-9: Mild facet arthritis and foraminal narrowing. T9-10: Diffuse mild annular disc bulging with facet joint arthritis. Moderate foraminal stenosis. T10-11: Facet joint arthritis encroaching into the thecal sac. Mild foraminal stenosis. T11-12: Marked annular disc bulging with severe ligamentum flavum and facet arthritis. Mild central with moderate to severe bilateral foraminal stenosis. T12-L1: Mild annular disc bulging and facet joint arthritis. Very mild foraminal narrowing. MR/MR thoracic spin wo con* [id number] IMPRESSION: 1. T12 anterior compression by 20% with vertebroplasty. 2. L1 compression fracture, remote. 3. Mild anterior compression T4 by 10%, remote. 4. Mild central with moderate to severe bilateral foraminal stenosis at T11-12 . 5. T11 anterolisthesis by 4.2 mm. 6. Multilevel foraminal stenosis. Most significant at T9-10 and T11-12.
== END 2022-10-09 09:32 | disposition home or self-care (01) ==
PROVIDERS: PCP Nurse Practitioner Family; Visit Provider Physician Assistant
DX: M48.04 Spinal stenosis, thoracic region (principal); Z98.890 Other specified postprocedural states; S32.010A Wedge compression fracture of first lumbar vertebra, initial encounter for closed fracture; X58.XXXA Exposure to other specified factors, initial encounter
CPT/HCPCS: 72146

== ENCOUNTER → 2022-11-12 09:15 | Outpatient (BNVA) | payer MEDICARE, SELFPAY | PROVIDERS: PCP Nurse Practitioner Family; Visit Provider Nurse Practitioner Family | DX: M25.562 Pain in left knee (principal); M17.12 Unilateral primary osteoarthritis, left knee; Z96.652 Presence of left artificial knee joint | CPT/HCPCS: 73560; 73565; 99214 ==

== ENCOUNTER 2023-04-27 09:12 | Emergency (ER) | payer MEDICARE, SELFPAY ==
[2023-04-27 09:15] VITALS: BMI 27.4
--- NOTE | 2023-04-27 09:23 | XRR_ITS ---
PROCEDURE INFORMATION: Exam: XR Left Shoulder Exam date and time: 04/27/2023 9:51 AM Age: 82 years old Clinical indication: Injury or trauma; Fall; Blunt trauma (contusions or hematomas); Shoulder; Left TECHNIQUE: Imaging protocol: Radiologic exam of the left shoulder. Views: 2 or more views. COMPARISON: CR XR chest 1V portable [id number] 08/11/2022 9:12 AM FINDINGS: Bones/joints: Normal. Soft tissues: Normal. XR/XR shoulder LT min 2V* [id number] IMPRESSION: No acute findings.
--- NOTE | 2023-04-27 09:23 | XRR_ITS ---
PROCEDURE INFORMATION: Exam: XR Left Hip Exam date and time: 04/27/2023 9:43 AM Age: 82 years old Clinical indication: Injury or trauma; Fall; Blunt trauma (contusions or hematomas); Right; Groin; Prior surgery; Surgery date: 6+ months; Surgery type: Lt femur and lt knee TECHNIQUE: Imaging protocol: Radiologic exam of the left hip. Views: 2 or 3 views hip with pelvis when performed. COMPARISON: CT hip LT wo con* [id number] 08/04/2022 7:28 AM FINDINGS: Bones/joints: No change in left total hip arthroplasty and internal fixation hardware throughout the left femur. Thinning of the proximal left femoral cortex posteriorly. No acute hardware complication. No acute fracture or other abnormality. Old healed fracture. Unchanged lucency throughout the left femur around the long intramedullary vika component. Soft tissues: Unremarkable. XR/XR hip LT 2-3V wo/w pel* [id number] IMPRESSION: No acute findings.
--- NOTE | 2023-04-27 09:34 | XRR_ITS ---
PROCEDURE INFORMATION: Exam: XR Left Knee Exam date and time: 04/27/2023 9:49 AM Age: 82 years old Clinical indication: Injury or trauma; Fall; Blunt trauma; Left; Prior surgery; Surgery date: 6+ months; Surgery type: Lt femur and lt knee TECHNIQUE: Imaging protocol: Radiologic exam of the left knee. Views: 3 views. COMPARISON: CT hip LT wo con* [id number] 08/04/2022 7:28 AM FINDINGS: Bones/joints: Left long-stem total knee arthroplasty projects in satisfactory position without evidence of complication. Otherwise, unremarkable. Soft tissues: Normal. XR/XR knee LT 3V* [id number] IMPRESSION: No acute findings.
--- NOTE | 2023-04-27 09:36 | ED_ITS ---
HPI - Extremity Problem General: Chief complaint: Extremity Injury, Lower Stated complaint: LEFT HIP PAIN S/P FALL Time Seen by Provider: 04/27/23 09:18 Source: patient and EMS Mode of arrival: EMS Limitations: no limitations History of Present Illness: 82-year-old female is here from assisted living who had a ground-level fall this morning states she is got left knee left hip and left shoulder pain from her fall. She denies hitting her head denies any loss consciousness rates her pain a 5 out of 10 currently she did receive fentanyl in route. Associated symptoms: Deny chest pain, fever(s) or rash Review of Systems Const: Denies: fever(s), chills, body aches or change in appetite ENMT: Denies: throat pain or dental pain Card: Denies: chest pain Resp: Denies: dyspnea GI: Denies: abdominal pain, nausea, vomiting or diarrhea Musc: Reports: extremity pain; Denies: neck pain or back pain Skin/Breast: Denies: rash Neuro: Denies: headache(s) PFSH ED PFSH: Medical History History of CAD (coronary artery disease) History of depression History of hyperlipidemia History of hypertension History of hypothyroidism History of nephrolithiasis History of type 2 diabetes mellitus Lumbar stenosis with neurogenic claudication Surgical History History of back surgery History of heart artery stent History of left hip replacement Family History Mother CAD (coronary artery disease) Social History Smoking and tobacco/nicotine status: never used tobacco/nicotine Alcohol intake: never Substance/Drug Use: never Physical Exam Const: COMMON NORMALS: no acute distress, patient oriented x3 and healthy appearing HENMT: COMMON NORMALS: normocephalic and atraumatic HEAD & SCALP: normocephalic and atraumatic Neck/C-Spine: COMMON NORMALS: full ROM and supple Chest: COMMONS NORMALS: normal inspection of the chest Resp: COMMON NORMALS: normal respiratory effort Cardio: COMMON NORMALS: regular rate, regular rhythm and No murmurs present (C ardio) RATE: regular rate RHYTHM: regular rhythm GI: COMMON NORMALS: Normal to inspection, nondistended, normoactive bowel sounds present, Soft to palpation, non-tender and no masses PALPATION: Yes Soft to palpation Extremity: COMMON NORMALS: full ROM OTHER: Tenderness to left knee and left hip no obvious deformities Neuro: COMMON NORMALS: patient oriented x3, moves all extremities and no focal motor deficits Psych: COMMON NORMALS: mental status grossly normal, Normal thought process present and cooperative THOUGHT PROCESS: Normal thought process present Skin: COMMON NORMALS: no rashes or lesions noted and no wounds GENERAL SKIN EXAM: no rashes or lesions noted Course Vital Signs: Vital signs: Vital Signs Pulse Rate 79 04/27/23 09:41 Respiratory Rate 16 04/27/23 09:41 Blood Pressure 113/65 04/27/23 09:41 Pulse Oximetry 96 04/27/23 09:41 Oxygen Delivery Me thod Nasal Cannula 04/27/23 09:41 Oxygen Flow Rate 2 04/27/23 09:41 MDM - Extremity (Nontraumatic) Medical Decision Making Patient presents here with left hip pain from a fall she also has some knee pain x-rays here showed no fractures she is able to bear weight she is stable for discharge follow-up PCP return if worsening. Medical Records I reviewed the patient's medical records. Lab Data Radiology Impressions Hip/Pelvis X-Ray 04/27/23 09:23 IMPRESSION: No acute findings. Shoulder X-Ray 04/27/23 09:23 IMPRESSION: No acute findings. Knee X-Ray 04/27/23 09:34 IMPRESSION: No acute findings. All radiology interpretation(s) finalized by discharge Discharge Plan Discharge Patient Disposition: Home Clinical Impression: Fall, Contusion Condition: Stable Prescriptions: No Action sertraline 200 mg capsule 200 mg PO QAM atorvastatin 40 mg tablet 40 mg PO QAM carvedilol 3.125 mg tablet 3.125 mg PO QAM Rx Instructions: must administer with a meal/food aspirin 81 mg tablet,delayed release (DR/EC) 81 mg PO DAILY pantoprazole 40 mg tablet,delayed release (DR/EC) 40 mg PO QAM hydrocodone-acetaminophen 5-325 mg tablet 1 - 2 tab PO .Q4-6H Qty: 40 0RF levothyroxine 112 mcg tablet 112 mcg PO QAM celecoxib 200 mg Capsule 200 mg PO BID PRN (Reason: pain) Qty: 14 0RF acetaminophen 325 mg Tablet 650 mg PO Q6H PRN (Reason: Mild/Mod Pain Or Temp >/= 101) Qty: 90 0RF polyethylene glycol 3350 17 gram Powder In Packet 17 g PO DAILY Qty: 90 0RF baclofen 10 mg Tablet 10 mg PO QID PRN (Reason: hip pain, back pain) Qty: 30 0RF lidocaine 5 % Adhesive Patch,Medicated 1 patch topical [id number] Qty: 14 0RF gabapentin 300 mg Capsule 300 mg PO Q12H Qty: 30 0RF Discharge Orders: Discharge ED (Routine); Ordered 04/27/23 Ordered By: Candace Lopez Referrals: Deepa Kaufman PROOF PRESS OPERATOR [Primary Care Provider] - 1-3 days Discharge Diet: Advance as tolerated Discharge Activity: Resume usual activity Patient Instructions: Contusion in Adults (ED), Fall Prevention (ED) Coding Level of Care Code ED Resource Center Teacher for [facility] Fritz
--- NOTE | 2023-04-27 09:38 | ECG_ITS ---
Test Date: 2023-04-27 Pat Name: Taylor Beaver Department: Room: Gender: Female Nutrition Manager: : 1940 Requested By: Candace Lopez Order Number: [id number] Bhakti MD: Ángela Malik M.D. Measurements Intervals [place] Rate: 77 P: 82 MS: 148 QRS: 8 QRSD: 112 T: 76 QT: 410 QTc: 465 Interpretive Statements SINUS RHYTHM MODERATE INTRAVENTRICULAR CONDUCTION DELAY [110+ ms QRS DURATION] NONSPECIFIC ST & T-WAVE ABNORMALITY Compared to ECG 08/06/2022 22:28:24 T-wave abnormality now present Ectopic atrial rhythm no longer present Electronically Signed On 04-28-2023 8:12:51 PIANO ASSEMBLER by Ángela Malik M.D. [id number]
[2023-04-27 09:41] VITALS: BP 113/65; PULSE 79; RESP 16; O2SAT 96
== END 2023-04-27 11:12 | disposition home or self-care (01) ==
PROVIDERS: Emergency Provider Emergency Medicine; PCP Nurse Practitioner Family
DX: S70.02XA Contusion of left hip, initial encounter (principal); S40.012A Contusion of left shoulder, initial encounter; W18.39XA Other fall on same level, initial encounter; Y92.099 Unspecified place in other non-institutional residence as the place of occurrence of the external cause; I25.10 Atherosclerotic heart disease of native coronary artery without angina pectoris; E78.5 Hyperlipidemia, unspecified; I10 Essential (primary) hypertension; E11.9 Type 2 diabetes mellitus without complications; Z96.642 Presence of left artificial hip joint
CPT/HCPCS: 73030; 73502; 73562; 93005; 99284

== ENCOUNTER 2023-07-15 05:39 | Emergency (ER) | payer MEDICARE, SELFPAY ==
[2023-07-15 05:40] VITALS: BP 151/124; PULSE 75; RESP 18; TEMP 36.7; O2SAT 93; BMI 21.6
[2023-07-15 05:45] VITALS: BP 151/124; RESP 16; O2SAT 92
--- NOTE | 2023-07-15 05:45 | XRR_ITS ---
PROCEDURE INFORMATION: Exam: XR Right Hip Exam date and time: 07/15/2023 7:03 AM Age: 83 years old Clinical indication: Pain and injury or trauma; Fall; Blunt trauma (contusions or hematomas); Hip pain; Right hip; Prior surgery; Surgery date: 6+ months; Surgery type: RT hip; Additional info: Fall pain TECHNIQUE: Imaging protocol: Radiologic exam of the right hip. Views: 1 view hip with pelvis when performed. COMPARISON: CR XR lumbar spine min 4V [id number] 02/25/2022 1:21 PM FINDINGS: Bones/joints: Total hip replacement. Anatomic alignment. Bone and metal are intact. No fracture or dislocation. No acute fracture. Prior right sacral kyphoplasty. Soft tissues: Unremarkable. XR/XR hip RT 2-3V wo/w pel* [id number] IMPRESSION: No acute findings.
--- NOTE | 2023-07-15 05:45 | XRR_ITS ---
PROCEDURE INFORMATION: Exam: XR Right Wrist Exam date and time: 07/15/2023 6:58 AM Age: 83 years old Clinical indication: Pain and injury or trauma; Fall; Blunt trauma (contusions or hematomas); Wrist; Right; Additional info: Fall pain TECHNIQUE: Imaging protocol: Radiologic exam of the right wrist. Views: 3 or more views. COMPARISON: CR XR hand RT min 3V* [id number] 05/10/2022 3:22 PM FINDINGS: Bones/joints: Mildly impacted minimally displaced fracture of the distal radius. Nondisplaced fracture through the distal ulna. Chondrocalcinosis. Radiocarpal degenerative changes. Soft tissues: Normal. Vasculature: Arterial calcifications. XR/XR wrist RT min 3V* [id number] IMPRESSION: Wrist fracture.
--- NOTE | 2023-07-15 05:46 | ED_ITS ---
Documented by User: Nadir Cantor DO 07/15/23 05:50 HPI - Fall 2 General: Chief Complaint: Fall Stated Complaint: fall Time Seen by Provider: 07/15/23 05:43 History of Present Illness: Patient presents to the hospital by EMS with complaints of fall. Patient fell on the floor approximately 1:00 this morning and laid there till EMS arrived at approximately 530. Patient is complaining of right wrist pain and right hip pain. Patient did receive 50 mcg of fentanyl and 4 mg Zofran on route per EMS. Patient says she has poor balance and just fell. Patient denies any loss of consciousness, syncope, head pain. Review of Systems 2 General: Reports: 10 or more systems reviewed and unremarkable except in HPI and below PFSH ED 2 PFSH: Medical History History of CAD (coronary artery disease) History of nephrolithiasis History of hypothyroidism History of hyperlipidemia History of depression History of hypertension History of type 2 diabetes mellitus Lumbar stenosis with neurogenic claudication Surgical History History of heart artery stent History of back surgery History of left hip replacement Family History Mother CAD (coronary artery disease) Social History Smoking and tobacco/nicotine status: never used tobacco/nicotine Alcohol intake: never Substance/Drug Use: never Physical Exam 2 Const: COMMON NORMALS: no acute distress, average body habitus, patient oriented x3, no limitations, healthy appearing, alert and well nourished HENMT: COMMON NORMALS: normocephalic, atraumatic, hearing grossly normal bilaterally, external ears normal, Normal external nose present, moist oral mucous membranes and oropharynx normal HEAD & SCALP: normocephalic and atraumatic NOSE: Normal external nose present EXTERNAL EAR: Yes external ears normal Neck/C-Spine: COMMON NORMALS: full ROM, no lymphadenopathy, supple, no meningeal signs, no JVD and Thyroid normal THYROID: Thyroid normal Chest: COMMONS NORMALS: normal inspection of the chest and normal palpation of entire chest wall Resp: COMMON NORMALS: normal respiratory effort, No retractions, No use of accessory muscles and clear to auscultation bilaterally AUSCULTATION: clear to auscultation bilaterally Cardio: COMMON NORMALS: no JVD, regular rate, regular rhythm, S1 normal heart sound present, S2 normal heart sound present, No gallops present (Cardio), No clicks present (Cardio), No murmurs present (Cardio) and No rub (Cardio) R ATE: regular rate RHYTHM: regular rhythm HEART SOUNDS: S1 normal heart sound present and S2 normal heart sound present GI: COMMON NORMALS: Normal to inspection, nondistended, normoactive bowel sounds present, Soft to palpation, non-tender, No hepatosplenomegaly present and no masses PALPATION: Yes Soft to palpation and Yes No hepatosplenomegaly present Extremity: NARRATIVE EXTREMITY EXAM: Right wrist in splint. Pain with palpation over wrist area. Pain with palpation over right hip. No rotation shortening crepitus or obvious deformity. Neuro: COMMON NORMALS: patient oriented x3 SENSORIUM/ORIENTATION: Yes alert MENINGEAL SIGNS: Yes no meningeal signs Course 2 Vital Signs: Vital signs: Vital Signs Temperature 98.0 F 07/15/23 05:40 Pulse Rate 75 07/15/23 05:40 Respiratory Rate 16 07/15/23 05:45 Blood Pressure 151/124 07/15/23 05:45 Pulse Oximetry 92 07/15/23 05:45 Oxygen Delivery Me thod Room Air 07/15/23 05:45 MDM - Fall Lab Data 07/15/23 05:55 07/15/23 05:55 Radiology Impressions Hip/Pelvis X-Ray 07/15/23 05:45 IMPRESSION: No acute findings. Wrist X-Ray 07/15/23 05:45 IMPRESSION: Wrist fracture. Laboratory Results WBC 9.96 10^3/uL (3.29-11.43) 07/15/23 05:55 RBC 4.07 10^6/uL (3.85-5.65) 07/15/23 05:55 Hgb 12.50 g/dL (11.27-16.99) 07/15/23 05:55 Hct 40.0 % (36-47) 07/15/23 05:55 MCV 98.3 fl (85-98) H 07/15/23 05:55 MCH 30.7 pg (27-33) 07/15/23 05:55 MCHC 31.3 g/dL (30-55) 07/15/23 05:55 RDW 13.9 % (12.1-15.1) 07/15/23 05:55 Plt Count 198 10^3/cmm (157-399) 07/15/23 05:55 MPV 9.9 fL (7.4-10.4) 07/15/23 05:55 Neut % (Auto) 77.5 % 07/15/23 05:55 Lymph % (Auto) 14.6 % 07/15/23 05:55 [place] % (Auto) 5.4 % 07/15/23 05:55 Eos % (Auto) 1.6 % 07/15/23 05:55 Baso % (Auto) 0.4 % 07/15/23 05:55 Neut # (Auto) 7.72 10^3/uL (1.8-7.7) H 07/15/23 05:55 Lymph # (Auto) 1.5 10^3/uL (0.8-4.8) 07/15/23 05:55 [place] # (Auto) 0.5 10^3/uL (0.2-0.9) 07/15/23 05:55 Eos # (Auto) 0.2 10^3/uL (0.0-0.8) 07/15/23 05:55 Baso # (Auto) 0.0 10^3/uL (0.0-0.1) 07/15/23 05:55 Nucleated RBC % (auto) 0 % 07/15/23 05:55 Nucleated RBCs # 0.0 /100WBC 07/15/23 05:55 Sodium 141 mmol/L (136-145) 07/15/23 05:55 Potassium 3.6 mmol/L (3.5-5.1) 07/15/23 05:55 Chloride 105 mmol/L (98-107) 07/15/23 05:55 Carbon Dioxide 24 mmol/L (22-29) 07/15/23 05:55 Anion Gap 15.6 (5-19) 07/15/23 05:55 BUN 15 mg/dL (8-23) 07/15/23 05:55 Creatinine 0.7 mg/dL (0.5-0.9) 07/15/23 05:55 GFR Calculation Not Reportable 07/15/23 05:55 Glucose 160 mg/dL (65-115) H 07/15/23 05:55 Calculated Osmolality 296 mOsm/kg (285-295) H 07/15/23 05:55 Calcium 9.1 mg/dL (8.5-10.5) 07/15/23 05:55 Total Bilirubin 0.2 mg/dL (0.15-1.2) 07/15/23 05:55 AST 20 U/L (0-32) 07/15/23 05:55 ALT 10 U/L (0-33) 07/15/23 05:55 Alkaline Phosphatase 97 U/L (35-105) 07/15/23 05:55 Creatine Kinase 120 U/L (26-192) 07/15/23 05:55 Total Protein 7.2 g/dL (6.6-8.7) 07/15/23 05:55 Albumin 3.8 g/dL (3.5-5.2) 07/15/23 05:55 Globulin 3.4 g/dL (1.3-4.6) 07/15/23 05:55 Discharge Plan Discharge Patient Disposition: Home Clinical Impression: Acute pain of right hip Fracture of right wrist Qualifiers: Encounter type: subsequent encounter Fracture type: closed Accidental fall Qualifiers: Encounter type: initial encounter Qualified Code(s): W19.XXXA - Unspecified fall, initial encounter Condition: Stable Prescriptions: New hydrocodone-acetaminophen 5-325 mg tablet 1 tab PO Q8H PRN (Reason: pain) Qty: 14 0RF No Action carvedilol 3.125 mg tablet 3.125 mg PO BID Rx Instructions: must administer with a meal/food pantoprazole 40 mg tablet,delayed release (DR/EC) 40 mg PO QAM sertraline 100 mg tablet 200 mg PO DAILY gabapentin 300 mg capsule 300 mg PO BID trazodone 50 mg tablet 50 mg PO BEDTIME PRN (Reason: Sleep) levothyroxine 112 mcg tablet 112 mcg PO QAM acetaminophen 325 mg Tablet 650 mg PO Q6H PRN (Reason: Mild/Mod Pain Or Temp >/= 101) Qty: 90 0RF Discharge Orders: Discharge ED (Routine); Ordered 07/15/23 Ordered By: Ortega Gomes Referrals: Deepa Kaufman NP [Referring] - Joseline Granado MD [Physician] - Discharge Diet: Advance as tolerated Discharge Activity: Resume usual activity Patient Instructions: Opioid Safety, Pain Management Coding Level of Care Code ED Director Product for Mariano Fwd Documented by User: Ortega Gomes MD 07/20/23 19:56 HPI - Fall 2 General: Chief Complaint: Fall Stated Complaint: fall Time Seen by Provider: 07/15/23 05:43 Review of Systems 2 Musc: Reports: extremity pain, extremity swelling, joint pain and joint swelling PFSH ED 2 PFSH: Medical History History of CAD (coronary artery disease) History of nephrolithiasis History of hypothyroidism History of hyperlipidemia History of depression History of hypertension History of type 2 diabetes mellitus Lumbar stenosis with neurogenic claudication Surgical History History of heart artery stent History of back surgery History of left hip replacement Family History Mother CAD (coronary artery disease) Social History Smoking and tobacco/nicotine status: never used tobacco/nicotine Alcohol intake: never Substance/Drug Use: never Course 2 Vital Signs: Vital signs: Vital Signs Temperature 98.0 F 07/15/23 05:40 Pulse Rate 75 07/15/23 05:40 Respiratory Rate 16 07/15/23 05:45 Blood Pressure 151/124 07/15/23 05:45 Pulse Oximetry 92 07/15/23 05:45 Oxygen Delivery Me thod Room Air 07/15/23 05:45 MDM - Fall Medical Decision Making I assumed care from Dr. Cantor the outgoing ER physician. I did reexamine the patient and discussed with her the radiographic findings. I did order a wrist splint and shoulder sling and provided her the prescribed medications for pain as well as recommended follow-up with the orthopedic physician. Medical Records I reviewed the patient's medical records. Lab Data I reviewed the patient's lab results. 07/15/23 05:55 07/15/23 05:55 Radiology Impressions Hip/Pelvis X-Ray 07/15/23 05:45 IMPRESSION: No acute findings. Wrist X-Ray 07/15/23 05:45 IMPRESSION: Wrist fracture. Laboratory Results WBC 9.96 10^3/uL (3.29-11.43) 07/15/23 05:55 RBC 4.07 10^6/uL (3.85-5.65) 07/15/23 05:55 Hgb 12.50 g/dL (11.27-16.99) 07/15/23 05:55 Hct 40.0 % (36-47) 07/15/23 05:55 MCV 98.3 fl (85-98) H 07/15/23 05:55 MCH 30.7 pg (27-33) 07/15/23 05:55 MCHC 31.3 g/dL (30-55) 07/15/23 05:55 RDW 13.9 % (12.1-15.1) 07/15/23 05:55 Plt Count 198 10^3/cmm (157-399) 07/15/23 05:55 MPV 9.9 fL (7.4-10.4) 07/15/23 05:55 Neut % (Auto) 77.5 % 07/15/23 05:55 Lymph % (Auto) 14.6 % 07/15/23 05:55 [place] % (Auto) 5.4 % 07/15/23 05:55 Eos % (Auto) 1.6 % 07/15/23 05:55 Baso % (Auto) 0.4 % 07/15/23 05:55 Neut # (Auto) 7.72 10^3/uL (1.8-7.7) H 07/15/23 05:55 Lymph # (Auto) 1.5 10^3/uL (0.8-4.8) 07/15/23 05:55 [place] # (Auto) 0.5 10^3/uL (0.2-0.9) 07/15/23 05:55 Eos # (Auto) 0.2 10^3/uL (0.0-0.8) 07/15/23 05:55 Baso # (Auto) 0.0 10^3/uL (0.0-0.1) 07/15/23 05:55 Nucleated RBC % (auto) 0 % 07/15/23 05:55 Nucleated RBCs # 0.0 /100WBC 07/15/23 05:55 Sodium 141 mmol/L (136-145) 07/15/23 05:55 Potassium 3.6 mmol/L (3.5-5.1) 07/15/23 05:55 Chloride 105 mmol/L (98-107) 07/15/23 05:55 Carbon Dioxide 24 mmol/L (22-29) 07/15/23 05:55 Anion Gap 15.6 (5-19) 07/15/23 05:55 BUN 15 mg/dL (8-23) 07/15/23 05:55 Creatinine 0.7 mg/dL (0.5-0.9) 07/15/23 05:55 GFR Calculation Not Reportable 07/15/23 05:55 Glucose 160 mg/dL (65-115) H 07/15/23 05:55 Calculated Osmolality 296 mOsm/kg (285-295) H 07/15/23 05:55 Calcium 9.1 mg/dL (8.5-10.5) 07/15/23 05:55 Total Bilirubin 0.2 mg/dL (0.15-1.2) 07/15/23 05:55 AST 20 U/L (0-32) 07/15/23 05:55 ALT 10 U/L (0-33) 07/15/23 05:55 Alkaline Phosphatase 97 U/L (35-105) 07/15/23 05:55 Creatine Kinase 120 U/L (26-192) 07/15/23 05:55 Total Protein 7.2 g/dL (6.6-8.7) 07/15/23 05:55 Albumin 3.8 g/dL (3.5-5.2) 07/15/23 05:55 Globulin 3.4 g/dL (1.3-4.6) 07/15/23 05:55 All radiology interpretation(s) finalized by discharge Discharge Plan Discharge Patient Disposition: Home Clinical Impression: Acute pain of right hip Fracture of right wrist Qualifiers: Encounter type: subsequent encounter Fracture type: closed Accidental fall Qualifiers: Encounter type: initial encounter Qualified Code(s): W19.XXXA - Unspecified fall, initial encounter Condition: Stable Prescriptions: New hydrocodone-acetaminophen 5-325 mg tablet 1 tab PO Q8H PRN (Reason: pain) Qty: 14 0RF No Action carvedilol 3.125 mg tablet 3.125 mg PO BID Rx Instructions: must administer with a meal/food pantoprazole 40 mg tablet,delayed release (DR/EC) 40 mg PO QAM sertraline 100 mg tablet 200 mg PO DAILY gabapentin 300 mg capsule 300 mg PO BID trazodone 50 mg tablet 50 mg PO BEDTIME PRN (Reason: Sleep) levothyroxine 112 mcg tablet 112 mcg PO QAM acetaminophen 325 mg Tablet 650 mg PO Q6H PRN (Reason: Mild/Mod Pain Or Temp >/= 101) Qty: 90 0RF Discharge Orders: Discharge ED (Routine); Ordered 07/15/23 Ordered By: Ortega Gomes Referrals: Deepa Kaufman NP [Referring] - Joseline Granado MD [Physician] - Discharge Diet: Advance as tolerated Discharge Activity: Resume usual activity Patient Instructions: Opioid Safety, Pain Management Coding Level of Care Code ED Director Product for Mariano Fritz
[2023-07-15 06:02] LABS: Basophils % 0.4 %; Eosinophils # 0.2 10^3/uL (0.0-0.8); Eosinophils % 1.6 %; Lymphocytes # 1.5 10^3/uL (0.8-4.8); Lymphocytes % 14.6 %; Mean Corpuscular HGB Conc 31.3 g/dL (30-55); Mean Corpuscular Hemoglobin 30.7 pg (27-33); Mean Corpuscular Volume 98.3 fl (85-98); Mean Platelet Volume 9.9 fL (7.4-10.4); Monocytes # 0.5 10^3/uL (0.2-0.9); Monocytes % 5.4 %; Neutrophils # 7.72 10^3/uL (1.8-7.7); Neutrophils % 77.5 %; Nucleated Red Blood Cells % 0 %; Platelet Count 198 10^3/cmm (157-399); Red Blood Count 4.07 10^6/uL (3.85-5.65); Red Cell Distribution Width 13.9 % (12.1-15.1); White Blood Count 9.96 10^3/uL (3.29-11.43)
[2023-07-15 06:27] LABS: Alanine Aminotransferase 10 U/L (0-33); Albumin Level 3.8 g/dL (3.5-5.2); Alkaline Phosphatase 97 U/L (35-105); Anion Gap 15.6 (5-19); Aspartate Amino Transferase 20 U/L (0-32); Blood Urea Nitrogen 15 mg/dL (8-23); Calcium 9.1 mg/dL (8.5-10.5); Carbon Dioxide 24 mmol/L (22-29); Chloride 105 mmol/L (98-107); Creatine Phosphokinase 120 U/L (26-192); Globulin 3.4 g/dL (1.3-4.6); Glucose 160 mg/dL (65-115); Osmolality Calculated 296 mOsm/kg (285-295); Potassium 3.6 mmol/L (3.5-5.1); Sodium 141 mmol/L (136-145); Total Bilirubin 0.2 mg/dL (0.15-1.2); Total Protein 7.2 g/dL (6.6-8.7)
[2023-07-15] MEDS: HYDROcodone-acetaminophen 5-325 mg Tablet 1 TAB PO (08:06)
== END 2023-07-15 09:32 | disposition home or self-care (01) ==
PROVIDERS: Emergency Medicine; Emergency Provider Internal Medicine; PCP Pediatrics
DX: S52.501A Unspecified fracture of the lower end of right radius, initial encounter for closed fracture (principal); S52.601A Unspecified fracture of lower end of right ulna, initial encounter for closed fracture; M25.551 Pain in right hip; I25.10 Atherosclerotic heart disease of native coronary artery without angina pectoris; E78.5 Hyperlipidemia, unspecified; I10 Essential (primary) hypertension; E11.9 Type 2 diabetes mellitus without complications; W18.30XA Fall on same level, unspecified, initial encounter
CPT/HCPCS: 29125; 73110; 73502; 80053; 82550; 85025; 99284

== ENCOUNTER 2023-07-16 13:42 | Emergency (ER) | payer MEDICARE, SELFPAY ==
[2023-07-16 13:48] VITALS: BP 124/73; PULSE 85; RESP 18; TEMP 36.7; O2SAT 93
--- NOTE | 2023-07-16 13:57 | XRR_ITS ---
PROCEDURE INFORMATION: Exam: XR Right Wrist Exam date and time: 07/16/2023 2:49 PM Age: 83 years old Clinical indication: Pain; Wrist; Right; Additional info: Wrist fracture TECHNIQUE: Imaging protocol: Radiologic exam of the right wrist. Views: 3 or more views. COMPARISON: CR XR wrist RT min 3V* [id number] 07/15/2023 6:58 AM FINDINGS: Tubes, catheters and devices: A fiberglass splint overlies the forearm, wrist and hand. The fracture involving the distal radial metaphysis is again noted in the distal fracture fragment remains mildly angulated in the dorsal direction. Bones/joints: See Tubes, catheters and devices finding. Soft tissues: Normal. XR/XR wrist RT min 3V* [id number] IMPRESSION: Bony alignment of the distal radius fracture has improved since the previous film
--- NOTE | 2023-07-16 13:58 | ED_ITS ---
HPI - Extremity Problem General: Chief complaint: Extremity Injury, Upper Stated complaint: right arm pain Time Seen by Provider: 07/16/23 13:57 History of Present Illness: 83-year-old female comes in today with i njury to the right wrist. Patient reports that she tripped and fell yesterday catching herself with outstretched arm and fracturing her wrist. Patient was seen at [facility] and was placed in a splint and recommended to follow-up with orthopedics. Patient repor ts poor pain control. Patient reports she is using acetaminophen for her pain. Patient appears nontoxic. Cap refill is noted to the distal digits. Patient is in a short arm splint. Review of Systems General: Reports: 10 or more systems reviewed and unremarkable except in HPI and below Musc: Reports: extremity pain [facility] ED PFSH: Medical History History of CAD (coronary artery disease) History of nephrolithiasis History of hypothyroidism History of hyperlipidemia History of depression History of hypertension History of type 2 diabetes mellitus Lumbar stenosis with neurogenic claudication Surgical History History of heart artery stent History of back surgery History of left hip replacement Family History Mother CAD (coronary artery disease) Social History Smoking and tobacco/nicotine status: never used tobacco/nicotine Alcohol intake: never Substance/Drug Use: never Physical Exam Const: COMMON NORMALS: alert HENMT: HEAD & SCALP: normal to inspection Neck/C-Spine: COMMON NORMALS: full ROM Chest: COMMONS NORMALS: normal inspection of the chest Resp: COMMON NORMALS: normal respiratory effort and clear to auscultation bilaterally AUSCULTATION: clear to auscultation bilaterally Cardio: COMMON NORMALS: regular rate and regular rhythm RATE: regular rate RHYTHM: regular rhythm : COMMON NORMALS: Yes no CVA tenderness BLADDER/KIDNEY EXAM: Yes no CVA tenderness Back/Pelvis: COMMON NORMALS: no CVA tenderness Extremity: COMMON NORMALS: normal to inspection Neuro: SENSORIUM/ORIENTATION: Yes alert Course Vital Signs: Vital signs: Vital Signs Temperature 98.0 F 07/16/23 13:48 Pulse Rate 85 07/16/23 13:48 Respiratory Rate 18 07/16/23 13:48 Blood Pressure 124/73 07/16/23 13:48 Pulse Oximetry 93 07/16/23 13:48 Oxygen Delivery Me thod Room Air 07/16/23 13:48 MDM - Extremity (Nontraumatic) Medical Decision Making 83-year-old female comes in today for complaints of injury to the right wrist. Patient had been seen yesterday and was diagnosed with a fracture of the distal radius. Patient reports uncontrolled pain. Patient has not picked up medication for pain yet from pharmacy in [facility]. Patient reports that she has poor pain control at this time. Cap refill and sensation is intact distally. Vital signs are stable. Differential diagnosis includes but not limited to uncontrolled pain, displaced radial fracture, need for medication for pain control, anxiety about injury. X-ray showed improved alignment of bones when compared to prior exam. Sugar-tong splint is intact. Reviewed exam with patient with recommendations for follow-up with orthopedics. Patient was given number for orthopedics office and a new case management consult was placed. Patient reports understanding of care plan and need for follow-up or return to the ER. Patient was given 30 mg Toradol in the ER with improvement of pain. Lab Data Radiology Impressions Wrist X-Ray 07/16/23 13:57 IMPRESSION: Bony alignment of the distal radius fracture has improved since the previous film All radiology interpretation(s) finalized by discharge Discharge Plan Discharge Patient Disposition: Home Clinical Impression: Fracture of right wrist Qualifiers: Encounter type: subsequent encounter Fracture type: closed Condition: Stable Prescriptions: No Action carvedilol 3.125 mg tablet 3.125 mg PO BID Rx Instructions: must administer with a meal/food pantoprazole 40 mg tablet,delayed release (DR/EC) 40 mg PO QAM sertraline 100 mg tablet 200 mg PO DAILY gabapentin 300 mg capsule 300 mg PO BID trazodone 50 mg tablet 50 mg PO BEDTIME PRN (Reason: Sleep) hydrocodone-acetaminophen 5-325 mg tablet 1 tab PO Q8H PRN (Reason: pain) Qty: 14 0RF levothyroxine 112 mcg tablet 112 mcg PO QAM acetaminophen 325 mg Tablet 650 mg PO Q6H PRN (Reason: Mild/Mod Pain Or Temp >/= 101) Qty: 90 0RF Discharge Orders: Discharge ED (Routine); Ordered 07/16/23 Ordered By: Juan José Thakur Referrals: Celestine Tapia DO [Physician] - Jaun Torres MD [Primary Care Provider] - Discharge Diet: Usual diet Discharge Activity: Increase activity as tolerated Patient Instructions: Wrist Fracture in Adults (ED) Activity Restrictions/Additional Instructions: Keep splint clean and dry. Orthopedics office should contact you regarding appointment. I did provide you the telephone number, , that you can call to talk directly with them to help with the appointment set up. Asked to talk to orthopedics office. Follow-up with primary care for further instructions. Return to ED for new concerns. Coding Level of Care Code ED Occupational Health Professional for Mariano Fritz
[2023-07-16] MEDS: ketorolac 30 mg/mL INJ IM (14:11)
--- NOTE | 2023-07-16 15:26 | DCPLANNER ---
Message sent urgently for a follow up on a wrist fracture-
== END 2023-07-16 15:30 | disposition home or self-care (01) ==
PROVIDERS: Emergency Provider Nurse Practitioner Family; PCP Pediatrics
DX: S52.501A Unspecified fracture of the lower end of right radius, initial encounter for closed fracture (principal); I25.10 Atherosclerotic heart disease of native coronary artery without angina pectoris; E78.5 Hyperlipidemia, unspecified; I10 Essential (primary) hypertension; E11.9 Type 2 diabetes mellitus without complications; W01.0XXA Fall on same level from slipping, tripping and stumbling without subsequent striking against object, initial encounter
CPT/HCPCS: 73110; 96372; 99284; J1885

== ENCOUNTER → 2023-07-22 14:48 | Outpatient (BNVA) | payer MEDICARE, SELFPAY | PROVIDERS: PCP Pediatrics; Referring Provider Emergency Medicine; Visit Provider Orthopaedic Surgery | DX: S52.501A Unspecified fracture of the lower end of right radius, initial encounter for closed fracture (principal); X58.XXXA Exposure to other specified factors, initial encounter | CPT/HCPCS: 73100; 99204 ==

== ENCOUNTER 2023-07-23 12:39 | Day surgery (SDC) | payer MEDICARE, SELFPAY ==
[2023-07-23] VITALS (17 sets, daily range): BP systolic 160–197; BP diastolic 72–95; PULSE 78–95; RESP 12–22; TEMP 36.4–36.8; O2SAT 92–99
--- NOTE | 2023-07-23 | XR_ITS ---
WS: [id number] XR wrist RT 2V [id number] REASON FOR EXAM: ANUJ PICS FINDINGS: Volar plate and screw fixation of distal right radial transverse metaphyseal fracture. Surgical appliances are intact and in proper position and alignment. Fracture fragments are in good position and alignment. IMPRESSION: Fixation of right wrist fracture without abnormality.
--- NOTE | 2023-07-23 13:06 | ECG_ITS ---
[facility] Test Date: 2023-07-23 Pat Name: Taylor Beaver Department: Room: Gender: Female Pmo Lead: : 1940 Requested By: Celestine Zaragoza Order Number: [id number] Bhakti MD: Oleg Stauffer M.D. Measurements Intervals [place] Rate: 76 P: 97 HI: 140 QRS: 46 QRSD: 110 T: 89 QT: 402 QTc: 454 Interpretive Statements SINUS RHYTHM POSSIBLE LEFT ATRIAL ENLARGEMENT [-0.1mV P-WAVE IN V1/V2] Compared to ECG 04/27/2023 09:38:14 Intraventricular conduction delay no longer present T-wave abnormality no longer present Electronically Signed On 07-23-2023 16:31:55 EP TECH by Oleg Stauffer M.D. [id number]
--- NOTE | 2023-07-23 13:14 | W.PM.OPSUD ---
Surgery/Procedure H&P Update DATE OF PROCEDURE: July 23, 2023 DATE H&P PERFORMED: 07/22/23 H&P UPDATE INFORMATION: I have reviewed H&P completed within last 30 days, I have examined patient prior to procedure and No changes to prior documentation PREOP DIAGNOSIS: Right distal radius fracture PLANNED PROCEDURE: Operation Date: 07/23/23 15:00 Proposed Procedures p ORIF Wrist(Right) - Celestine Tapia DO
[2023-07-23] MEDS: sodium chloride 0.9% 1,000 ML 30 ML IV (13:20)
[2023-07-23 13:33] LABS: Basophils % 0.5 %; Eosinophils # 0.2 10^3/uL (0.0-0.8); Eosinophils % 2.9 %; Hematocrit 41.5 % (36-47); Lymphocytes # 1.4 10^3/uL (0.8-4.8); Lymphocytes % 22.4 %; Mean Corpuscular HGB Conc 31.6 g/dL (30-55); Mean Corpuscular Hemoglobin 30.7 pg (27-33); Mean Corpuscular Volume 97.2 fl (85-98); Mean Platelet Volume 10.3 fL (7.4-10.4); Monocytes # 0.4 10^3/uL (0.2-0.9); Neutrophils # 4.08 10^3/uL (1.8-7.7); Neutrophils % 66.9 %; Nucleated Red Blood Cells % 0 %; Platelet Count 250 10^3/cmm (157-399); Red Blood Count 4.27 10^6/uL (3.85-5.65); Red Cell Distribution Width 13.6 % (12.1-15.1); White Blood Count 6.11 10^3/uL (3.29-11.43)
[2023-07-23] MEDS: scopolamine 1.5 Patch 1 PATCH TRANSDERMA (13:36)
[2023-07-23 13:43] LABS: Alanine Aminotransferase 7 U/L (0-33); Albumin Level 3.9 g/dL (3.5-5.2); Alkaline Phosphatase 100 U/L (35-105); Anion Gap 14.9 (5-19); Aspartate Amino Transferase 13 U/L (0-32); Blood Urea Nitrogen 9 mg/dL (8-23); Calcium 9.1 mg/dL (8.5-10.5); Carbon Dioxide 30 mmol/L (22-29); Chloride 97 mmol/L (98-107); Creatinine Clr Calc Pharmacy 47.9324; Globulin 3.6 g/dL (1.3-4.6); Glucose 116 mg/dL (65-115); Osmolality Calculated 286 mOsm/kg (285-295); Potassium 3.9 mmol/L (3.5-5.1); Sodium 138 mmol/L (136-145); Total Bilirubin 0.4 mg/dL (0.15-1.2); Total Protein 7.5 g/dL (6.6-8.7)
--- NOTE | 2023-07-23 13:45 | P.ANESASSM_ITS ---
Pre-Anesthetic Assessment Height/Weight: Height 1.65 m Weight 62.142 kg Temp Pulse Resp BP Pulse Ox O2 Del Method 97.7 F 78 18 167/84 92 Room Air 07/23/23 12:56 07/23/23 12:56 07/23/23 12:56 07/23/23 12:56 07/23/23 12:56 07/23/23 13:11 Preop Diagnosis: Right distal radius fracture Operation Date: 07/23/23 15:00 Proposed Procedures p ORIF Wrist(Right) - Celestine Tapia, Familial anesthetic complications: None Was Beta Samuel taken within 24 hours: Yes Was Clonidine taken within 24 hours: N/A Last intake: Intake Last Liquid Date 07/22/23 Last Liquid Time 19:00 Last Solid Date 07/22/23 Last Solid Time 17:00 Social No alcohol and No tobacco Exam alert, oriented x 3, clear to auscultation bilaterally and regular rate & rhythm Airway Mallampati: Class II CV/HEM Coronary Artery Disease (stents in 2013), Hypertension and Myocardial Infarction GI Gastroesophageal Reflux Disease Metabolic Diabetes Mellitus and Hyperlipidemia Anesthetic Plan ASA status: 3 Anesthesia: General Risk of > 500 ml blood loss (7ml/kg in children): No Medications/Allergies Home Medications Medication Instructions Recorded Confirmed Last Taken Type carvedilol 3.125 mg tablet 3.125 mg PO BID 04/30/22 07/23/23 07/21/23 History pantoprazole 40 mg tablet,delayed 40 mg PO QAM 04/30/22 07/23/23 07/23/23 History release levothyroxine 112 mcg tablet 112 mcg PO QAM 08/04/22 07/23/23 07/21/23 History acetaminophen 325 mg tablet 650 mg (2 x 325 mg) PO Q6H PRN 08/13/22 07/23/23 Unknown Rx Mild/Mod Pain Or Temp >/= 101 #90 tabs gabapentin 300 mg capsule 300 mg PO BID 07/15/23 07/23/23 07/21/23 History hydrocodone 5 mg-acetaminophen 325 1 tab PO Q8H PRN pain #14 tabs 07/15/23 07/23/23 Unknown Rx mg tablet sertraline 100 mg tablet 200 mg PO DAILY 07/15/23 07/23/23 07/21/23 History trazodone 50 mg tablet 50 mg PO BEDTIME PRN Sleep 07/15/23 07/23/23 Unknown History Allergies Allergy/AdvReac Type Severity Reaction Status Date / Time No Known Allergies Allergy Verified 07/23/23 12:51 Current Medications Generic Name Dose Route Start Last Admin Trade Name Delonq PRN Reason Stop Dose Admin Sodium Chloride 1,000 mls @ 30 mls/hr 07/23/23 13:00 07/23/23 13:20 Sodium Chloride 0.9% IV 07/24/23 12:59 30 mls/hr .Q24H IDA Administration PFSH Anesthesia Medical History History of CAD (coronary artery disease) History of nephrolithiasis History of hypothyroidism History of hyperlipidemia History of depression History of hypertension History of type 2 diabetes mellitus Lumbar stenosis with neurogenic claudication Surgical History History of heart artery stent History of back surgery History of left hip replacement Family History Mother CAD (coronary artery disease) Social History Smoking and tobacco/nicotine status: never used tobacco/nicotine Alcohol intake: never Substance/Drug Use: never Data Anesthesia 07/23/23 13:15 07/23/23 13:15 Short CBC 07/23/23 Range/Units 13:15 WBC 6.11 (3.29-11.43) 10^3/uL Hgb 13.10 (11.27-16.99) g/dL Hct 41.5 (36-47) % MCV 97.2 (85-98) fl Plt Count 250 (157-399) 10^3/cmm Neut % (Auto) 66.9 % Neut # (Auto) 4.08 (1.8-7.7) 10^3/uL BMP 07/23/23 13:15 Sodium 138 Potassium 3.9 BUN 9 Creatinine 0.6 Calcium 9.1 Liver Function 07/23/23 Range/Units 13:15 Total Bilirubin 0.4 (0.15-1.2) mg/dL AST 13 (0-32) U/L ALT 7 (0-33) U/L Alkaline Phosphatase 100 (35-105) U/L Albumin 3.9 (3.5-5.2) g/dL Cardiac Studies: 2 No Data to Display
[2023-07-23] MEDS: ceFAZolin 2,000 MG in sodium chloride 0.9% (plus) 50 ML 100 MG IV (13:54)
[2023-07-23] MEDS: lidocaine 2% INJ 20 mL INJECTION (14:42)
--- NOTE | 2023-07-23 15:28 | PM.OP ---
Operative Report Date of procedure: July 23, 2023 Pre-op diagnosis: Right extra-articular distal radius fracture Post-op diagnosis: same Procedure done: Open reduction internal fixation of right distal radius fracture Surgeon: Celestine Tapia DO Estimated blood loss (mL): 5 Procedure: Open reduction internal fixation of right distal radius fracture Patient brought the operative suite after undergoing anesthesia was placed in the supine position. All areas impingement well-padded. A tourniquet was applied. Patient was then prepped and draped normal sterile fashion. Skin incision made over the wrist. The FCR was exposed. The incision went through the FCR compartment. The pronator quadratus was reflected ulnarly. Retractors were placed. Fracture was reduced. A [place] distal radius plate was placed. 3 locking screws were placed distally. A cortical screw followed by a locking screw was placed in the shaft. AP lateral fluoroscopy ensured the fracture and hardware in good position. Wounds were irrigated wound was closed with 2-0 Vicryl and Monocryl suture. Sterile dressings were applied. Patient was put in a volar splint. Patient was transferred to the PACU in stable condition.
[2023-07-23] MEDS: ondansetron 2 mg/ML SDV 2 mL 4 MG IVP ×2 (15:48→17:04)
[2023-07-23] MEDS: fentaNYL 50 mcg/mL INJ 2mL IVP ×2 (15:50→16:07)
--- NOTE | 2023-07-23 16:08 | P.ANES_ITS ---
Anesthesia Procedures Procedure/Date: 07/23/23 Nerve Block ^: Nerve Block 1: Main Anesthesia: general anesthesia Time Out Performed: Yes Consent: requested by attending/covering physician, from patient, from other, risks and benefits reviewed and patient agrees to proceed Nerve block location: axillary (R) Anesthesia monitors applied: pulse oximetry, EKG, BP cuff and oxygen Nerve block position: supine Anesthetic Used: ropivicaine 0.5% (30 ml) and with decadron (4 mg) Ultrasound used to: recognize landmarks and visualize and ID brachial plexus Nerve Stimulator Used?: No Interscalene/Femoral BLK: 4 stimuplex 21 g needle used for position and inplane approach, visualize local anesthetic spread and no vascular puncture identified (Aspriation of heme 2x, both times needle removed and flushed clear before re- inserting and continuing iwth intermittent aspriation) Complications: none
--- NOTE | 2023-07-23 17:20 | ANE.PACU2 ---
Inpatient post-anesthesia follow up: Airway intact: Yes Vital signs: Temperature 97.6 F Pulse Rate 88 Respiratory Rate 17 Blood Pressure 170/89 Pulse Oximetry 95 Oxygen Delivery Me thod Room Air Oxygen Flow Rate 2 Fraction of Inspir ed Oxygen Hydration adequate: Yes Nausea and vomiting: No Pain level: 1 Mental status: Baseline
== END 2023-07-23 17:24 | disposition home or self-care (01) ==
PROVIDERS: PCP Pediatrics; Visit Provider Orthopaedic Surgery
PROC: (CPT 25607; principal; 2023-07-23 14:40)
DX: S52.551A Other extraarticular fracture of lower end of right radius, initial encounter for closed fracture (principal); W19.XXXA Unspecified fall, initial encounter; I25.10 Atherosclerotic heart disease of native coronary artery without angina pectoris; Z95.5 Presence of coronary angioplasty implant and graft; I10 Essential (primary) hypertension; I25.2 Old myocardial infarction; K21.9 Gastro-esophageal reflux disease without esophagitis; E11.9 Type 2 diabetes mellitus without complications; E78.5 Hyperlipidemia, unspecified
CPT/HCPCS: 25607; 73100; 76000; 80053; 85025; 93005; C1713; J0131; J0690; J1100; J2405; J2704; J2795; J3010; J7030

== ENCOUNTER → 2023-07-30 13:39 | Outpatient (BNVA) | payer MEDICARE, SELFPAY | PROVIDERS: PCP Pediatrics; Visit Provider Nurse Practitioner | DX: Z98.890 Other specified postprocedural states (principal) | CPT/HCPCS: 99024 ==

== ENCOUNTER → 2023-08-08 12:52 | Outpatient (BNVA) | payer MEDICARE, SELFPAY | PROVIDERS: PCP Pediatrics; Visit Provider Orthopaedic Surgery | DX: S52.501D Unspecified fracture of the lower end of right radius, subsequent encounter for closed fracture with routine healing; X58.XXXD Exposure to other specified factors, subsequent encounter | CPT/HCPCS: 73110; 99024 ==

== ENCOUNTER → 2023-09-04 13:22 | Outpatient (BNVA) | payer MEDICARE, SELFPAY | PROVIDERS: PCP Pediatrics; Visit Provider Orthopaedic Surgery | DX: Z48.89 Encounter for other specified surgical aftercare (principal) | CPT/HCPCS: 73110; 99024 ==

== ENCOUNTER → 2023-10-16 15:12 | Outpatient (BNVA) | payer MEDICARE, SELFPAY | PROVIDERS: PCP Pediatrics; Visit Provider Orthopaedic Surgery | DX: Z48.89 Encounter for other specified surgical aftercare (principal) | CPT/HCPCS: 73110; 99024 ==

== ENCOUNTER → 2023-11-06 08:37 | Outpatient (BNVA) | payer MEDICARE, SELFPAY | PROVIDERS: PCP Pediatrics; Visit Provider Orthopaedic Surgery | DX: T84.84XA Pain due to internal orthopedic prosthetic devices, implants and grafts, initial encounter; Y79.2 Prosthetic and other implants, materials and accessory orthopedic devices associated with adverse incidents; M25.531 Pain in right wrist; Z86.39 Personal history of other endocrine, nutritional and metabolic disease | CPT/HCPCS: 36415; 73110; 80053; 81003; 83036; 85025; 99214 ==

== ENCOUNTER 2023-11-14 07:55 | Day surgery (SDC) | payer MEDICARE, SELFPAY ==
[2023-11-14] VITALS (16 sets, daily range): BP systolic 141–205; BP diastolic 75–126; PULSE 74–103; RESP 12–28; TEMP 36.1–36.6; O2SAT 87–99; BMI 22.8
[2023-11-14] MEDS: sodium chloride 0.9% 1,000 ML 30 ML IV (08:35)
--- NOTE | 2023-11-14 09:10 | ANES.PREANE2 ---
Pre-Anesthetic Assessment Height/Weight: Height 1.65 m Weight 62.142 kg O2 Del Method Room Air 11/14/23 08:30 Preop Diagnosis: Painful hardware Operation Date: 11/14/23 09:35 Proposed Procedures p Hardware Removal Wrist(Right) - Celestine Tapia, Familial anesthetic complications: States she wasn't deep enough last time for her arm surgery, when inquiring further turns out patient didn't experience intraperative awareness, but had refractory pain resistant to invervention in the PACU. she is very concerned about post-op pain control stating she won't leave in pain this time. Explained that I did not have capability to perscibe post-discharge pain regimen, but that we would treat her pain to the best of our abilities safely. Unfortunately a post op block will not be an option Was Beta Samuel taken within 24 hours: N/A Was Clonidine taken within 24 hours: N/A Last intake: Intake Last Liquid Date 11/13/23 Last Liquid Time 22:00 Last Solid Date 11/13/23 Last Solid Time 22:00 Social No alcohol and No tobacco Exam alert, oriented x 3, clear to auscultation bilaterally and regular rate & rhythm Airway Mallampati: Class II Dentition: chipped CV/HEM Coronary Artery Disease (stents 2013) and Myocardial Infarction Metabolic Diabetes Mellitus and Thyroid Disease Anesthetic Plan ASA status: 3 Anesthesia: General Risk of > 500 ml blood loss (7ml/kg in children): No Medications/Allergies Home Medications Medication Instructions Recorded Confirmed Last Taken Type carvedilol 3.125 mg tablet 3.125 mg PO BID 04/30/22 11/14/23 11/13/23 History pantoprazole 40 mg tablet,delayed 40 mg PO QAM 04/30/22 11/14/23 11/13/23 History release levothyroxine 112 mcg tablet 112 mcg PO QAM 08/04/22 11/14/23 11/13/23 History acetaminophen 325 mg tablet 650 mg (2 x 325 mg) PO Q6H PRN 08/13/22 11/14/23 11/13/23 Rx Mild/Mod Pain Or Temp >/= 101 #90 tabs gabapentin 300 mg capsule 300 mg PO BID 07/15/23 11/14/23 11/13/23 History sertraline 100 mg tablet 200 mg PO DAILY 07/15/23 11/14/23 11/13/23 History trazodone 50 mg tablet 50 mg PO BEDTIME PRN Sleep 07/15/23 11/14/23 11/13/23 History hydrocodone 5 mg-acetaminophen 325 1 - 2 tab PO .Q4-6H #40 tabs 07/23/23 11/14/23 11/13/23 Rx mg tablet cockup splint #1 ea 07/30/23 11/06/23 Unknown Rx meclizine 25 mg tablet 25 mg PO PRN PRN Nausea 11/14/23 11/14/23 11/13/23 History Allergies Allergy/AdvReac Type Severity Reaction Status Date / Time No Known Allergies Allergy Verified 11/06/23 08:39 Current Medications Generic Name Dose Route Start Last Admin Trade Name Freq PRN Reason Stop Dose Admin Sodium Chloride 1,000 mls @ 30 mls/hr 11/14/23 08:15 11/14/23 08:35 Sodium Chloride 0.9% IV 11/15/23 08:14 30 mls/hr .Q24H IDA Administration PFSH Anesthesia Medical History History of CAD (coronary artery disease) History of nephrolithiasis History of hypothyroidism History of hyperlipidemia History of depression History of hypertension History of type 2 diabetes mellitus Lumbar stenosis with neurogenic claudication Surgical History Post-operative state History of heart artery stent History of back surgery History of left hip replacement Family History Mother CAD (coronary artery disease) Social History Smoking and tobacco/nicotine status: never used tobacco/nicotine Alcohol intake: never Substance/Drug Use: never Data Anesthesia Cardiac Studies: No Data to Display
--- NOTE | 2023-11-14 09:15 | W.PM.OPSUD ---
Surgery/Procedure H&P Update DATE OF PROCEDURE: November 14, 2023 DATE H&P PERFORMED: 11/06/23 H&P UPDATE INFORMATION: I have reviewed H&P completed within last 30 days, I have examined patient prior to procedure and No changes to prior documentation PREOP DIAGNOSIS: Painful hardware PLANNED PROCEDURE: Operation Date: 11/14/23 09:35 Proposed Procedures p Hardware Removal Wrist(Right) - eClestine Tapia DO
[2023-11-14] MEDS: ceFAZolin 2,000 MG in sodium chloride 0.9% (plus) 50 ML 100 MG IV (09:29)
[2023-11-14] MEDS: lidocaine-epi 1% 20 mL INJ INJECTION (10:20)
--- NOTE | 2023-11-14 10:27 | PM.OP ---
Operative Report Date of procedure: November 14, 2023 Pre-op diagnosis: Painful hardware right wrist Post-op diagnosis: same Procedure done: Removal of deep hardware from right wrist Surgeon: Celestine Tapia DO Estimated blood loss (mL): 5 Procedure: Removed painful hardware from right wrist Patient brought the op suite after undergoing anesthesia placed in the supine position. All his impingement well-padded. Patient's prepped and draped normal sterile fashion. Tourniquet was put up. Skin skin was made using previous incision. Once incision made in the flexor carpi radialis was identified retracted medially radial artery was identified retracted laterally and dissection was made through the fascia. Plate was identified the pronator teres was reflected ulnarly. 3 screws were removed from the plate distally 2 screws were removed proximally. Plate was then removed. AP lateral fluoroscopy ensured the hardware and screws were removed. Wounds irrigated closed with nylon suture. Sterile dressings applied patient was transferred to the PACU in stable addition.
[2023-11-14] MEDS: fentaNYL 50 mcg/mL INJ 2mL IVP ×2 (10:49→11:19)
[2023-11-14] MEDS: labetalol 5 mg/mL SDV 20mL IVP (11:05)
--- NOTE | 2023-11-14 11:22 | SUR.PHASEI ---
Patient was offered a block when arriving to PACU, patient wasnt' awake enough to feel the pain. Patien tis now wake and having pain , treated with fentanyl. Waiting in PACU for anesthesia provider to perform nerve block . Will control pain with IV medication until block is performed
--- NOTE | 2023-11-14 11:32 | SUR.PHASEI ---
Patient's pain is now reported to be 2/10. BP is elevated, but no complaints of nausea. Anesthesia is not available but will transfer patient to Post op for block to be done prior to discharge.
[2023-11-14] MEDS: HYDROcodone-acetaminophen 10-325 mg Tablet 1 TAB PO (12:06)
--- NOTE | 2023-11-14 13:13 | ANES.PROC ---
Anesthesia Procedures Procedure/Date: 11/14/23 Nerve Block ^: Nerve Block 1: Main Anesthesia: general anesthesia Time Out Performed: Yes Consent: requested by attending/covering physician, from patient, from other, risks and benefits reviewed and patient agrees to proceed Nerve block location: axillary (R) Anesthesia monitors applied: pulse oximetry, EKG, BP cuff and oxygen Nerve block position: supine Anesthetic Used: ropivicaine 0.5% (30 ml) and with decadron (4 mg) Ultrasound used to: recognize landmarks and visualize and ID brachial plexus Nerve Stimulator Used?: No Interscalene/Femoral BLK: 2 stimuplex 22 g needle used for position and inplane approach, visualize local anesthetic spread and no vascular puncture identified Injection: neg aspiration of heme Patient Tolerated Procedure: well and no complications Complications: none
--- NOTE | 2023-11-14 14:17 | XR_ITS ---
WS: [id number] Exam: XR wrist RT min 3V* [id number] Date/Time of Exam: 11/14/2023 2:17 PM Reason For Exam: ANUJ PICS AP and lateral C-arm images of the RIGHT wrist were obtained. The images confirm hardware removal fro m the distal radius.
== END 2023-11-14 13:20 | disposition home or self-care (01) ==
PROVIDERS: PCP Pediatrics; Visit Provider Orthopaedic Surgery
PROC: (CPT 20680; principal; 2023-11-14 09:25)
DX: T84.84XA Pain due to internal orthopedic prosthetic devices, implants and grafts, initial encounter (principal); I25.10 Atherosclerotic heart disease of native coronary artery without angina pectoris; Z95.5 Presence of coronary angioplasty implant and graft; I25.2 Old myocardial infarction; E11.9 Type 2 diabetes mellitus without complications; E03.9 Hypothyroidism, unspecified; E78.5 Hyperlipidemia, unspecified; F32.A Depression, unspecified
CPT/HCPCS: 20680; 73110; 76000; J0690; J1100; J1170; J2250; J2405; J2704; J2795; J3010; J3490; J7030

== ENCOUNTER → 2023-11-27 13:35 | Outpatient (BNVA) | payer MEDICARE, SELFPAY | PROVIDERS: PCP Pediatrics; Visit Provider Orthopaedic Surgery | DX: T84.84XA Pain due to internal orthopedic prosthetic devices, implants and grafts, initial encounter (principal); Z98.890 Other specified postprocedural states; Y79.2 Prosthetic and other implants, materials and accessory orthopedic devices associated with adverse incidents | CPT/HCPCS: 99024 ==

== ENCOUNTER 2024-01-02 18:32 | Emergency (ER) | payer MEDICARE, SELFPAY ==
[2024-01-02 18:36] VITALS: BP 116/75; PULSE 91; RESP 18; TEMP 36.6; O2SAT 95; BMI 22.8
--- NOTE | 2024-01-02 18:38 | ECG_ITS ---
[facility] Test Date: 2024-01-02 Pat Name: Taylor Beaver Department: Room: Gender: Female Post Closing Specialist: : 1940 Requested By: Nadir Cantor Order Number: [id number] Bhakti MD: Agusto Mills M.D. Measurements Intervals [place] Rate: 89 P: 14 NV: 133 QRS: -19 QRSD: 103 T: 85 QT: 360 QTc: 440 Interpretive Statements SINUS RHYTHM NONSPECIFIC T-WAVE ABNORMALITY Compared to ECG 07/23/2023 13:06:46 T-wave abnormality now present Electronically Signed On 01-02-2024 22:41:36 CDT by Agusto Mills M.D. [id number]
--- NOTE | 2024-01-02 18:45 | XRR_ITS ---
PROCEDURE INFORMATION: Exam: XR Chest Exam date and time: 01/02/2024 6:49 PM Age: 83 years old Clinical indication: Pain; Chest pressure; Prior surgery; Surgery date: 6+ months; Surgery type: Cardiac stent x2; Additional info: Chest pain TECHNIQUE: Imaging protocol: Radiologic exam of the chest. Views: 1 view. COMPARISON: CR XR chest 1V portable [id number] 08/11/2022 9:12 AM FINDINGS: Lungs: There are patchy opacities in the mid to lower left lung field. There are pulmonary parenchymal calcifications consistent with remote granulomatous organism exposure. Pleural spaces: Unremarkable. No pleural effusion. No pneumothorax. Heart/Mediastinum: There are calcified mediastinal and perihilar lymph nodes consistent with prior granulomatous exposure. Bones/joints: There are degenerative changes in the thoracic spine and across the acromioclavicular joints. XR/XR chest 1V portable [id number] IMPRESSION: Patchy opacities in the mid to lower left lung field are nonspecific however raise concern for pneumonia.
[2024-01-02 18:54] LABS: Basophils % 0.2 %; Eosinophils # 0.3 10^3/uL (0.0-0.8); Eosinophils % 2.8 %; Hematocrit 38.4 % (36-47); Lymphocytes # 1.5 10^3/uL (0.8-4.8); Lymphocytes % 12.6 %; Mean Corpuscular HGB Conc 31.8 g/dL (30-55); Mean Corpuscular Hemoglobin 31.1 pg (27-33); Mean Platelet Volume 10.6 fL (7.4-10.4); Monocytes # 0.9 10^3/uL (0.2-0.9); Monocytes % 7.2 %; Neutrophils # 9.17 10^3/uL (1.8-7.7); Neutrophils % 76.8 %; Nucleated Red Blood Cells % 0 %; Platelet Count 213 10^3/cmm (157-399); Red Blood Count 3.92 10^6/uL (3.85-5.65); White Blood Count 11.95 10^3/uL (3.29-11.43)
[2024-01-02 19:07] VITALS: BP 134/71; PULSE 85; RESP 31; O2SAT 92
--- NOTE | 2024-01-02 19:11 | W.ED.CHESTPA ---
HPI - Chest Pain General: Chief Complaint: Chest Pain Stated Complaint: cp Time Seen by Provider: 01/02/24 18:35 History of Present Illness: Patient presents to the ER with left-sided chest pressure that radiates to the left arm but also goes across the right side of her chest. Has been going on for the last couple hours but has gotten significantly better. Patient states she had a cough for the last 2 days and has a history of heart disease with CAD and an [place] with 2 stent [place] [address] Stauffer here. She then moved to [place] where she sees a sustainable landscape architect down there. EMS gave the patient 324 mg aspirin, 2 nitro with significant pain relief. Patient does not use oxygen at home but does use a scooter to help with her mobility. Review of Systems General: Reports: 10 or more systems reviewed and unremarkable except in HPI and below PFSH ED PFSH: Medical History History of CAD (coronary artery disease) History of nephrolithiasis History of hypothyroidism History of hyperlipidemia History of depression History of hypertension History of type 2 diabetes mellitus Lumbar stenosis with neurogenic claudication Surgical History Post-operative state History of heart artery stent History of back surgery History of left hip replacement Family History Mother CAD (coronary artery disease) Social History Smoking and tobacco/nicotine status: never used tobacco/nicotine Alcohol intake: never Substance/Drug Use: never Physical Exam Const: COMMON NORMALS: no acute distress, average body habitus, patient oriented x3, no limitations, healthy appearing, alert and well nourished HENMT: COMMON NORMALS: normocephalic, atraumatic, hearing grossly normal bilaterally, external ears normal, Normal external nose present and moist oral mucous membranes HEAD & SCALP: normocephalic and atraumatic NOSE: Normal external nose present EXTERNAL EAR: Yes external ears normal Neck/C-Spine: COMMON NORMALS: no JVD Chest: COMMONS NORMALS: normal inspection of the chest; negative for normal palpation of entire chest wall (Palpation left anterior chest wall reproduces pain) Resp: COMMON NORMALS: normal respiratory effort, No retractions, No use of accessory muscles and clear to auscultation bilaterally AUSCULTATION: clear to auscultation bilaterally Cardio: COMMON NORMALS: no JVD, regular rate, regular rhythm, S1 normal heart sound present, S2 normal heart sound present, No gallops present (Cardio), No clicks present (Cardio), No murmurs present (Cardio) and No rub (Cardio) RATE: regular rate RHYTHM: regular rhythm HEART SOUNDS: S1 normal heart sound present and S2 normal heart sound present GI: COMMON NORMALS: Normal to inspection, nondistended, normoactive bowel sounds present, Soft to palpation, non-tender, No hepatosplenomegaly present and no masses PALPATION: Yes Soft to palpation and Yes No hepatosplenomegaly present Neuro: COMMON NORMALS: patient oriented x3 SENSORIUM/ORIENTATION: Yes alert Course Vital Signs: Vital signs: Vital Signs Temperature 97.8 F 01/02/24 18:36 Pulse Rate 81 01/02/24 20:37 Respiratory Rate 30 H 01/02/24 20:37 Blood Pressure 129/86 01/02/24 20:37 Pulse Oximetry 92 01/02/24 20:37 Oxygen Delivery Me thod Room Air 01/02/24 20:37 MDM - Chest Pain Medical Decision Making Patient worked in a standard chest pain fashion with serial lab work, serial enzymes, x-rays and EKGs, all of which essentially benign. X-ray did show possibility for mild pneumonia however procalcitonin is normal white count is slightly elevated therefore we will wait and treat with antibiotics. Differential Diagnosis Unlikely acute massive pulmonary embolism, acute respiratory failure, acute myocardial infarction, cardiac arrest or sudden cardiac Medical Records I reviewed the patient's medical records. Lab Data I reviewed the patient's lab results. 01/02/24 18:40 01/02/24 18:40 Radiology Impressions Chest X-Ray 01/02/24 18:45 IMPRESSION: Patchy opacities in the mid to lower left lung field are nonspecific however raise concern for pneumonia. Laboratory Results WBC 11.95 10^3/uL (3.29-11.43) H 01/02/24 18:40 RBC 3.92 10^6/uL (3.85-5.65) 01/02/24 18:40 Hgb 12.20 g/dL (11.27-16.99) 01/02/24 18:40 Hct 38.4 % (36-47) 01/02/24 18:40 MCV 98.0 fl (85-98) 01/02/24 18:40 MCH 31.1 pg (27-33) 01/02/24 18:40 MCHC 31.8 g/dL (30-55) 01/02/24 18:40 RDW 15.0 % (12.1-15.1) 01/02/24 18:40 Plt Count 213 10^3/cmm (157-399) 01/02/24 18:40 MPV 10.6 fL (7.4-10.4) H 01/02/24 18:40 Neut % (Auto) 76.8 % 01/02/24 18:40 Lymph % (Auto) 12.6 % 01/02/24 18:40 [place] % (Auto) 7.2 % 01/02/24 18:40 Eos % (Auto) 2.8 % 01/02/24 18:40 Baso % (Auto) 0.2 % 01/02/24 18:40 Neut # (Auto) 9.17 10^3/uL (1.8-7.7) H 01/02/24 18:40 Lymph # (Auto) 1.5 10^3/uL (0.8-4.8) 01/02/24 18:40 [place] # (Auto) 0.9 10^3/uL (0.2-0.9) 01/02/24 18:40 Eos # (Auto) 0.3 10^3/uL (0.0-0.8) 01/02/24 18:40 Baso # (Auto) 0.0 10^3/uL (0.0-0.1) 01/02/24 18:40 Nucleated RBC % (auto) 0 % 01/02/24 18:40 Nucleated RBCs # 0.0 /100WBC 01/02/24 18:40 Sodium 137 mmol/L (136-145) 01/02/24 18:40 Potassium 4.6 mmol/L (3.5-5.1) 01/02/24 18:40 Chloride 103 mmol/L (98-107) 01/02/24 18:40 Carbon Dioxide 26 mmol/L (22-29) 01/02/24 18:40 Anion Gap 12.6 (5-19) 01/02/24 18:40 BUN 16 mg/dL (8-23) 01/02/24 18:40 Creatinine 0.7 mg/dL (0.5-0.9) 01/02/24 18:40 GFR Calculation Not Reportable 01/02/24 18:40 Glucose 109 mg/dL (65-115) 01/02/24 18:40 Calculated Osmolality 286 mOsm/kg (285-295) 01/02/24 18:40 Calcium 8.9 mg/dL (8.5-10.5) 01/02/24 18:40 Total Bilirubin 0.3 mg/dL (0.15-1.2) 01/02/24 18:40 AST 14 U/L (0-32) 01/02/24 18:40 ALT 13 U/L (0-33) 01/02/24 18:40 Alkaline Phosphatase 92 U/L (35-105) 01/02/24 18:40 Troponin T Baseline 16 ng/L (0-10) H 01/02/24 18:40 Troponin T 120 Minute 15.85 ng/L (0-10) H 01/02/24 20:37 Delta Troponin T -0.15 ABS# (0-10) L 01/02/24 20:37 Total Protein 7.0 g/dL (6.6-8.7) 01/02/24 18:40 Albumin 4.1 g/dL (3.5-5.2) 01/02/24 18:40 Globulin 2.9 g/dL (1.3-4.6) 01/02/24 18:40 Procalcitonin 0.10 ng/mL (0-0.5) 01/02/24 18:40 All radiology interpretation(s) finalized by discharge Discharge Plan Discharge Patient Disposition: Home Clinical Impression: Left lower lobe pneumonia Qualifiers: Pneumonia type: due to unspecified organism Qualified Code(s): J18.9 - Pneumonia, unspecified organism Condition: Stable Prescriptions: New amoxicillin-pot clavulanate 875-125 mg tablet 1 tab PO Q12H Qty: 20 0RF No Action (DME) cockup splint See Rx Instructions .Route .MEDSUPPLY Qty: 1 0RF Rx Instructions: As directed carvedilol 3.125 mg tablet 3.125 mg PO BID Rx Instructions: must administer with a meal/food pantoprazole 40 mg tablet,delayed release (DR/EC) 40 mg PO QAM sertraline 100 mg tablet 200 mg PO DAILY trazodone 50 mg tablet 50 mg PO BEDTIME PRN (Reason: Sleep) levothyroxine 112 mcg tablet 112 mcg PO QAM acetaminophen 325 mg Tablet 650 mg PO Q6H PRN (Reason: Mild/Mod Pain Or Temp >/= 101) Qty: 90 0RF hydrocodone-acetaminophen 5-325 mg tablet 1 - 2 tab PO .Q4-6H Qty: 40 0RF meclizine 25 mg tablet 25 mg PO PRN PRN (Reason: Nausea) Discharge Orders: Discharge ED (Routine); Ordered 01/02/24 Ordered By: Nadir Cantor Referrals: Jaun Torres MD [Primary Care Provider] - Patient Instructions: Chest Pain (ED), Community Acquired Pneumonia (DC) Activity Restrictions/Additional Instructions: Your x-ray showed you might have a little bit of left lower lobe pneumonia, you have been prescribed Augmentin, it has been sent to your pharmacy, please take it as directed. Please follow-up with your family practice physician in the next 7 to 10 days for further evaluation and treatment. Coding Level of Care Code ED Rotary Bar Operator for Mariano Fritz
[2024-01-02 19:19] LABS: Troponin(5th) Baseline 16 ng/L (0-10)
[2024-01-02 19:20] LABS: Alanine Aminotransferase 13 U/L (0-33); Albumin Level 4.1 g/dL (3.5-5.2); Alkaline Phosphatase 92 U/L (35-105); Anion Gap 12.6 (5-19); Aspartate Amino Transferase 14 U/L (0-32); Blood Urea Nitrogen 16 mg/dL (8-23); Calcium 8.9 mg/dL (8.5-10.5); Carbon Dioxide 26 mmol/L (22-29); Chloride 103 mmol/L (98-107); Creatinine Clr Calc Pharmacy 47.9324; Globulin 2.9 g/dL (1.3-4.6); Glucose 109 mg/dL (65-115); Osmolality Calculated 286 mOsm/kg (285-295); Potassium 4.6 mmol/L (3.5-5.1); Sodium 137 mmol/L (136-145); Total Bilirubin 0.3 mg/dL (0.15-1.2)
[2024-01-02 19:42] VITALS: BP 138/89; PULSE 79; RESP 30; O2SAT 92
[2024-01-02 20:37] VITALS: BP 129/86; PULSE 81; RESP 30; O2SAT 92
--- NOTE | 2024-01-02 20:45 | ECG_ITS ---
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 Measurements Intervals [place] Rate: 89 P: 0 [place]: 0 QRS: 2 QRSD: 102 T: 192 QT: 442 QTc: 538 Interpretive Statements SUPRAVENTRICULAR RHYTHM ST DEVIATION AND MODERATE T-WAVE ABNORMALITY, CONSIDER LATERAL ISCHEMIA [-0.1+ mV T-WAVE IN I/aVL/V5/V6] ST DEVIATION AND MODERATE T-WAVE ABNORMALITY, CONSIDER INFERIOR ISCHEMIA [-0.1+ mV T-WAVE IN II/aVF] Compared to ECG 01/02/2024 18:38:38 Supraventricular rhythm now present Possible ischemia now present Sinus rhythm no longer present T-wave abnormality still present Electronically Signed On 01-02-2024 22:44:33 CDT by Agusto Mills M.D. [id number]
[2024-01-02 21:02] LABS: Troponin 5 2HR 15.85 ng/L (0-10)
[2024-01-02 21:03] LABS: Troponin 5 2HR Delta -0.15 ABS# (0-10)
[2024-01-02] MEDS: amoxicillin-clav 875-125 mg Tablet 1 TAB PO (22:03)
[2024-01-02 22:08] VITALS: PULSE 90; RESP 18; O2SAT 91
== END 2024-01-02 22:00 | disposition home or self-care (01) ==
PROVIDERS: Emergency Provider Emergency Medicine; PCP Pediatrics
DX: J18.9 Pneumonia, unspecified organism (principal); I25.10 Atherosclerotic heart disease of native coronary artery without angina pectoris; E78.5 Hyperlipidemia, unspecified; I10 Essential (primary) hypertension; E11.9 Type 2 diabetes mellitus without complications
CPT/HCPCS: 36415; 71045; 80053; 84145; 84484; 85025; 93005; 99285

== ENCOUNTER → 2024-01-06 14:34 | Outpatient (BNVA) | payer MEDICARE, SELFPAY | PROVIDERS: PCP Pediatrics; Referring Provider Orthopaedic Surgery; Visit Provider Student in an Organized Health Care Education/Training Program | DX: M25.531 Pain in right wrist (principal) | CPT/HCPCS: 20600; 73110; J3301 ==

== ENCOUNTER 2024-08-24 16:34 | Inpatient (IN) | payer MEDICARE, SELFPAY ==
[2024-08-24] VITALS (14 sets, daily range): BP systolic 99–135; BP diastolic 46–71; PULSE 81–101; RESP 16–36; TEMP 36.8–37.9; O2SAT 90–97; BMI 28.3; BMI 24.0
--- NOTE | 2024-08-24 16:36 | ECG_ITS ---
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 Measurements Intervals [place] Rate: 89 P: 66 AR: 139 QRS: 43 QRSD: 125 T: 60 QT: 408 QTc: 498 Interpretive Statements SINUS RHYTHM INDETERMINATE AXIS RIGHT BUNDLE BRANCH BLOCK [120+ ms QRS DURATION, UPRIGHT V1, 40+ ms S IN I/aVL/V4/V5/V6] Compared to ECG 01/02/2024 20:48:48 Indeterminate axis now present Right bundle-branch block now present Supraventricular rhythm no longer present T-wave abnormality no longer present Possible ischemia no longer present Electronically Signed On 08-27-2024 19:14:47 CDT by Agusto Mills M.D. [email or web address] [id number]
--- NOTE | 2024-08-24 16:36 | XRR_ITS ---
PROCEDURE INFORMATION: Exam: XR Chest Exam date and time: 08/24/2024 4:44 PM Age: 84 years old Clinical indication: Cough; Additional info: Cough x 2 wks, syncopal episode today TECHNIQUE: Imaging protocol: Radiologic exam of the chest. Views: 1 view. COMPARISON: CR (CHEST, ) 01/02/2024 6:49 PM FINDINGS: Lungs: Patchy opacities are seen at the left lung base. This is slightly increased compared to prior. Previous ground-glass opacities in the left lower lung laterally are decreased. Small calcified right apical nodule without change. Pleural spaces: Unremarkable. No pleural effusion. No pneumothorax. Heart/Mediastinum: Unremarkable. No cardiomegaly. Bones/joints: Status post T12 kyphoplasty. Upper abdomen: Surgical clips are seen in the right upper quadrant. XR/XR chest 1V portable [id number] IMPRESSION: Pulmonary opacities at the left lung base which could represent pneumonia or aspiration.
--- NOTE | 2024-08-24 16:42 | CTR_ITS ---
PROCEDURE INFORMATION: Exam: CT Head Without Contrast Exam date and time: 08/24/2024 4:56 PM Age: 84 years old Clinical indication: Syncope and collapse; Severe SOB TECHNIQUE: Imaging protocol: Computed tomography of the head without contrast. Radiation optimization: All CT scans at this facility use at least one of these dose optimization techniques: automated exposure control; mA and/or kV adjustment per patient size (includes targeted exams where dose is matched to clinical indication); or iterative reconstruction. COMPARISON: No relevant prior studies available. RADIATION DOSE METRICS: Total DLP (mGy-cm): 976.21 FINDINGS: Brain: Normal. No hemorrhage. Unremarkable white matter. No mass effect. Cerebral ventricles: Prominence of ventricles and sulci consistent with generalized volume loss or atrophy. Paranasal sinuses: Visualized sinuses are unremarkable. No fluid levels. Mastoid air cells: Visualized mastoid air cells are well aerated. Bones: Unremarkable. No acute fracture. Soft tissues: Unremarkable. CT/CT head wo con* [id number] IMPRESSION: No acute intracranial abnormality.
--- NOTE | 2024-08-24 16:59 | ED_ITS ---
HPI - Syncope 2 General: Chief Complaint: Syncope Stated Complaint: Syncope Time Seen by Provider: 08/24/24 16:36 Source: patient and EMS Mode of arrival: EMS Limitations: no limitations History of Present Illness: 84-year-old female who states she has no t felt well over the last 2 weeks states she has has had some fatigue and evaluation for leg symptoms states been having some vomiting as well states that today she had a syncopal event while sitting. She still had nausea and vomiting received Zofran and route she denies any fevers denies any headache denies any chest pain Associated symptoms: Reports nausea; Deny abdominal pain, chest pain, fever(s) or headache(s) Related Data Home Medications ?Medication ?Instructions ?Recorded ?Confirmed carvedilol 3.125 mg tablet 3.125 mg PO BID 04/30/22 pantoprazole 40 mg tablet,delayed 40 mg PO QAM 2 01/06/24 release levothyroxine 112 mcg tablet 112 mcg PO QAM 08/04/22 0 01/06/24 sertraline 100 mg tablet 200 mg PO DAILY 07/15/23 trazodone 50 mg tablet 50 mg PO BEDTIME PRN Sleep 0 07/15/23 01/06/24 meclizine 25 mg tablet 25 mg PO PRN PRN Nausea 05/3 07/0901/06/24 amoxicillin 875 mg-potassium 1 tab PO BID 01/06/24 clavulanate 125 mg tablet Previous Rx's ?Medication ?Instructions ?Recorded acetaminophen 325 mg tablet 650 mg (2 x 325 mg) PO Q6H PRN 08/13/22 Mild/Mod Pain Or Temp >/= 101 #90 tabs cockup splint #1 ea 07/30/23 Allergies Allergy/AdvReac Type Severity Reaction Status Date / Time No Known Allergies Allergy Verified 01/06/24 14:09 Review of Systems 2 Const: Denies: fever(s), chills, body aches or change in appetite ENMT: Denies: throat pain or dental pain Card: Reports: syncope; Denies: chest pain Resp: Reports: dyspnea and non-productive cough GI: Reports: nausea and vomiting; Denies: abdominal pain or diarrhea : Denies: dysuria Musc: Denies: neck pain or back pain Skin/Breast: Denies: rash Neuro: Denies: headache(s) PFSH ED 2 PFSH: Medical History History of CAD (coronary artery disease) History of nephrolithiasis History of hypothyroidism History of hyperlipidemia History of depression History of hypertension History of type 2 diabetes mellitus Lumbar stenosis with neurogenic claudication Surgical History Post-operative state History of heart artery stent History of back surgery History of left hip replacement Family History Mother CAD (coronary artery disease) Social History Smoking and tobacco/nicotine status: former use of tobacco/nicotine Alcohol intake: never Substance/Drug Use: never Physical Exam 2 Const: COMMON NORMALS: patient oriented x3 HENMT: COMMON NORMALS: normocephalic and atraumatic HEAD & SCALP: n ormocephalic and atraumatic Eye: COMMON NORMALS: Equal, round and reactive pupils present and EOMs intact bilaterally PUPIL: Yes Equal, round and reactive pupils present Neck/C-Spine: COMMON NORMALS: full ROM and supple Chest: COMMONS NORMALS: normal inspection of the chest and normal palpation of entire chest wall Resp: COMMON NORMALS: normal respiratory effort, No retractions, No use of accessory muscles and clear to auscultation bilaterally AUSCULTATION: clear to auscultation bilaterally Cardio: COMMON NORMALS: regular rate, regular rhythm and No murmurs present (Cardio) RATE: regular rate RHYTHM: regular rhythm GI: COMMON NORMALS: Normal to inspection, nondistended, normoactive bowel sounds present, Soft to palpation, non-tender and no masses PALPATION: Yes Soft to palpation Extremity: COMMON NORMALS: normal to inspection and full ROM Neuro: COMMON NORMALS: patient oriented x3, moves all extremities and no focal motor deficits Psych: COMMON NORMALS: mental status grossly normal, Normal thought process present and cooperative THOUGHT PROCESS: Normal thought process present Skin: COMMON NORMALS: no rashes or lesions noted and no wounds GENERAL SKIN EXAM: no rashes or lesions noted Course 2 Vital Signs: Vital signs: Vital Signs Temperature 98.3 F 08/24/24 16:37 Pulse Rate 87 03/11/25 18:30 Respiratory Rate 16 08/24/24 16:37 Blood Pressure 120/55 08/24/24 18:30 Pulse Oximetry 95 08/24/24 18:30 Oxygen Delivery Me thod Room Air 08/24/24 16:37 MDM - Syncope Medical Decision Making Patient presents here with a syncopal event she is also been having cough and not feeling well and vomiting she is found to have a pneumonia she is quite hypoxic here as well will start antibiotics and admit at this time. Medical Records I reviewed the patient's medical records. Lab Data I reviewed the patient's lab results. 08/24/24 17:33 08/24/24 17:33 Radiology Impressions Chest X-Ray 08/24/24 16:36 IMPRESSION: Pulmonary opacities at the left lung base which could represent pneumonia or aspiration. Head CT 08/24/24 16:42 IMPRESSION: No acute intracranial abnormality. Laboratory Results WBC 13.44 10^3/uL (3.29-11.43) H 08/24/24 17:33 RBC 4.30 10^6/uL (3.85-5.65) 08/24/24 17:33 Hgb 12.90 g/dL (11.27-16.99) 08/24/24 17:33 Hct 42.1 % (36-47) 08/24/24 17:33 MCV 97.9 fl (85-98) 08/24/24 17:33 MCH 30.0 pg (27-33) 08/24/24 17:33 MCHC 30.6 g/dL (30-55) 08/24/24 17:33 RDW 15.6 % (12.1-15.1) H 08/24/24 17:33 Plt Count 162 10^3/cmm (157-399) 08/24/24 17:33 MPV 11.6 fL (7.4-10.4) H 08/24/24 17:33 Neut % (Auto) 89.7 % 08/24/24 17:33 Lymph % (Auto) 4.0 % 08/24/24 17:33 [place] % (Auto) 5.7 % 08/24/24 17:33 Eos % (Auto) 0.1 % 08/24/24 17:33 Baso % (Auto) 0.1 % 08/24/24 17:33 Neut # (Auto) 12.05 10^3/uL (1.8-7.7) H 08/24/24 17:33 Lymph # (Auto) 0.5 10^3/uL (0.8-4.8) L 08/24/24 17:33 [place] # (Auto) 0.8 10^3/uL (0.2-0.9) 08/24/24 17: Eos # (Auto) 0.0 10^3/uL (0.0-0.8) 08/24/24 17:33 Baso # (Auto) 0.0 10^3/uL (0.0-0.1) 08/24/24 17: Nucleated RBC % (auto) 0 % 08/24/24 17: Nucleated RBCs # 0.0 /100WBC 08/24/24 17:33 Sodium 141 mmol/L (136-145) 08/24/24 17:33 Potassium 4.3 mmol/L (3.5-5.1) 08/24/24 17:33 Chloride 103 mmol/L (98-107) 08/24/24 17:33 Carbon Dioxide 26 mmol/L (22-29) 08/24/24 17:33 Anion Gap 16.3 (5-19) 08/24/24 17:33 BUN 14 mg/dL (8-23) 08/24/24 17:33 Creatinine 0.9 mg/dL (0.5-0.9) 08/24/24 17:33 GFR Calculation Not Reportable 08/24/24 17:33 Glucose 142 mg/dL (65-115) H 08/24/24 17:33 Calculated Osmolality 295 mOsm/kg (285-295) 08/24/24 17:33 Calcium 8.7 mg/dL (8.5-10.5) 08/24/24 17:33 Total Bilirubin 0.7 mg/dL (0.15-1.2) 08/24/24 17:33 AST 14 U/L (0-32) 08/24/24 17:33 ALT 9 U/L (0-33) 08/24/24 17:33 Alkaline Phosphatase 73 U/L (35-105) 08/24/24 17:33 Total Protein 7.4 g/dL (6.6-8.7) 08/24/24 17:33 Albumin 3.8 g/dL (3.5-5.2) 08/24/24 17:33 Globulin 3.6 g/dL (1.3-4.6) 08/24/24 17:33 Influenza A (PCR) Negative (Negative) 08/24/24 17:29 Influenza Type B (PCR) Negative (Negative) 08/24/24 17:29 RSV (PCR) Negative (Negative) 08/24/24 17:29 SARS-CoV-2 (PCR) Negative (Negative) 08/24/24 17:29 All radiology interpretation(s) finalized by discharge EKG Data EKG 1: I personally reviewed and interpreted this EKG as follows: EKG interpretation date: 08/24/24 EKG interpretation time: 16:36 Interpretation: nsr hr [address] elevation qrs 125 qtc 455 Discharge Plan Discharge Patient Disposition: Admitted As Inpatient Clinical Impression: Pneumonia, Syncope, Acute respiratory failure with hypoxemia Condition: Stable Prescriptions: No Action (DME) cockup splint See Rx Instructions .Route .MEDSUPPLY Qty: 1 0RF Rx Instructions: As directed carvedilol 3.125 mg tablet 3.125 mg PO BID Rx Instructions: must administer with a meal/food pantoprazole 40 mg tablet,delayed release (DR/EC) 40 mg PO QAM amoxicillin-pot clavulanate 875-125 mg tablet 1 tab PO BID sertraline 100 mg tablet 200 mg PO DAILY trazodone 50 mg tablet 50 mg PO BEDTIME PRN (Reason: Sleep) levothyroxine 112 mcg tablet 112 mcg PO QAM acetaminophen 325 mg Tablet 650 mg PO Q6H PRN (Reason: Mild/Mod Pain Or Temp >/= 101) Qty: 90 0RF meclizine 25 mg tablet 25 mg PO PRN PRN (Reason: Nausea) Referrals: Jaun Torres MD [Referring] - Print Language: Guyanese Coding Level of Care Code ED Installation & Maintenance Executive for Chg Catrina
[2024-08-24] MEDS: sodium chloride 0.9% 1,000 ML 999 ML IV (17:26)
[2024-08-24 17:44] LABS: Basophils % 0.1 %; Eosinophils % 0.1 %; Hematocrit 42.1 % (36-47); Lymphocytes # 0.5 10^3/uL (0.8-4.8); Mean Corpuscular HGB Conc 30.6 g/dL (30-55); Mean Corpuscular Volume 97.9 fl (85-98); Mean Platelet Volume 11.6 fL (7.4-10.4); Monocytes # 0.8 10^3/uL (0.2-0.9); Monocytes % 5.7 %; Neutrophils # 12.05 10^3/uL (1.8-7.7); Neutrophils % 89.7 %; Nucleated Red Blood Cells % 0 %; Platelet Count 162 10^3/cmm (157-399); Red Cell Distribution Width 15.6 % (12.1-15.1); White Blood Count 13.44 10^3/uL (3.29-11.43)
[2024-08-24 18:05] LABS: Alanine Aminotransferase 9 U/L (0-33); Albumin Level 3.8 g/dL (3.5-5.2); Alkaline Phosphatase 73 U/L (35-105); Anion Gap 16.3 (5-19); Aspartate Amino Transferase 14 U/L (0-32); Blood Urea Nitrogen 14 mg/dL (8-23); Calcium 8.7 mg/dL (8.5-10.5); Carbon Dioxide 26 mmol/L (22-29); Chloride 103 mmol/L (98-107); Creatinine Clr Calc Pharmacy 46.0731; Globulin 3.6 g/dL (1.3-4.6); Glucose 142 mg/dL (65-115); Osmolality Calculated 295 mOsm/kg (285-295); Potassium 4.3 mmol/L (3.5-5.1); Sodium 141 mmol/L (136-145); Total Bilirubin 0.7 mg/dL (0.15-1.2); Total Protein 7.4 g/dL (6.6-8.7)
[2024-08-24 18:30] LABS: Influenza A NEGATIVE (Negative); Influenza B NEGATIVE (Negative); Respiratory Syncytial Virus Ce NEGATIVE (Negative); SARS-CoV-2 PCR NEGATIVE (Negative)
--- NOTE | 2024-08-24 18:47 | PC.NURSE ---
orthostatics: laying- 125/63, HR 90 sitting- 123/60 HR 80 standing- 145/76 HR 94
--- NOTE | 2024-08-24 20:14 | PM.HP ---
Providers/Chief Complaint Primary Care Provider: JOSAFAT Ojeda Chief Complaint: Syncope History of Present Illness Taylor Beaver is a 84 year old female elderly female with history of chronic kidney disease anxiety L3-L4 laminectomy, dysphagia, modified barium swallow did not show aspiration however showed abnormal dilatation of esophagus with retention of fluid and spasm there is marked narrowing distal esophageal GE junction with moderate hiatal hernia presenting with syncopal events to the hospital. Patient is stating that she does not use oxygen at home, lives alone, uses a walker at home, tries to eat liquid diet, for last 2 to 3 weeks has been very weak and lethargic noticed subjective fevers, loose stools, reproducible left-sided chest discomfort, experienced multiple falls in the past few days, patient endorsing she has been passing out quite frequently especially when she is changing her position from sitting to standing. Today she thinks she had 1 passing out spell sitting in a chair. Workup in the ER consistent with pneumonia, EKG showing bundle branch block with nonspecific ST changes, troponin without significant elevation, D-dimer unremarkable, patient is stating that every time she tries to eat solids she would throw up right away In the ER she is requiring 4 to 5 L of oxygen to saturate above 91%, she has been given antibiotics FL/FL barium swallow modifd [id number] IMPRESSION: 1. Modified barium swallow demonstrating no evidence of aspiration or penetration into the laryngeal inlet. 2. Abnormal dilatation of the lower 50% of the esophagus with retention of the fluid and spasm. This may represent achalasia Review of records: Barium swallow study: FL/FL barium swallow [id number] Impression: 1. Very poor contractility of the entire esophagus with dilatation and numerous diverticula which has worsened since 2011. 2. Marked narrowing of the distal esophagus probably at the gastroesophageal junction. 3. Moderate hiatal hernia. As per the patient in 2014 [facility] she had some kind of procedure done where lower part of esophagus musculature were removed Will request records if possible Review of Systems Eyes: Denies: change in vision ENMT: Denies: throat pain Card: Denies: chest pain Resp: Reports: dyspnea GI: Reports: nausea and vomiting : Denies: flank pain Psych: Reports: anxiety Medications/Allergies Home Medications ?Medication ?Instructions ?Recorded ?Confirmed ?Last Taken ?Type carvedilol 3.125 mg tablet 3.125 mg PO BID 04/30/22 01/06/24 11/13/23 History pantoprazole 40 mg tablet,delayed 40 mg PO QAM 04/30/22 01/06/24 11/13/23 History release levothyroxine 112 mcg tablet 112 mcg PO QAM 08/04/22 01/06/24 11/13/23 History acetaminophen 325 mg tablet 650 mg (2 x 325 mg) PO Q6H PRN 08/13/22 01/06/24 11/13/23 Rx Mild/Mod Pain Or Temp >/= 101 #90 tabs sertraline 100 mg tablet 200 mg PO DAILY 07/15/23 01/06/24 11/13/23 History trazodone 50 mg tablet 50 mg PO BEDTIME PRN Sleep 07/15/23 01/06/24 11/13/23 History cockup splint #1 ea 07/30/23 01/06/24 Unknown Rx meclizine 25 mg tablet 25 mg PO PRN PRN Nausea 11/14/23 01/06/24 11/13/23 History amoxicillin 875 mg-potassium 1 tab PO BID 01/06/24 01/06/24 Unknown History clavulanate 125 mg tablet Allergies Allergy/AdvReac Type Severity Reaction Status Date / Time No Known Allergies Allergy Verified 01/06/24 14:09 PFSH Acute PFSH: Medical History History of CAD (coronary artery disease) History of nephrolithiasis History of hypothyroidism History of hyperlipidemia History of depression History of hypertension History of type 2 diabetes mellitus Lumbar stenosis with neurogenic claudication Surgical History Post-operative state History of heart artery stent History of back surgery History of left hip replacement Family History Mother CAD (coronary artery disease) Social History Smoking and tobacco/nicotine status: former use of tobacco/nicotine Alcohol intake: never Substance/Drug Use: never Vitals/I&O/Wt Last Vital Signs Temp 98.3 F 08/24/24 16:37 Pulse 87 08/24/24 18:30 Resp 16 08/24/24 16:37 BP 120/55 08/24/24 18:30 Pulse Ox 95 08/24/24 18:30 O2 Del Method Room Air 08/24/24 16:37 Weight last 48 hrs Weight 77.111 kg Physical Exam Narrative: Patient is malnourished Sarcopenia Protein calorie malnourishment Dehydration Currently requiring 4 L nasal cannula to saturate 91% No tachycardia Reproducible left-sided chest pain GCS 15 No active focal deficit S1, S2 No audible stridor or wheezing Data 08/24/24 17:33 08/24/24 17:33 A&P Assessment and plan (1) Orthostatic syncope: (2) History of type 2 diabetes mellitus: (3) History of CAD (coronary artery disease): (4) Depression: (5) Dysphagia: (6) Lumbar stenosis with neurogenic claudication: (7) Syncope: (8) Pneumonia: (9) Acute respiratory failure with hypoxemia: Plan Aspiration pneumonia Has history of esophageal dysmotility and recurrent nausea vomiting Will start patient on Zosyn Discontinue ceftriaxone and azithromycin that was given in the ER Acute hypoxia requiring 4 L of oxygen DuoNeb treatment along steroids Start antibiotics D-dimer unremarkable Patient also has hiatal hernia Chronic dysphagia: Esophageal dysmotility achalasia?: Previous modified barium study, imaging reviewed, patient will need GI for balloon dilatation, Considering concern for stricture endoscopy would be considered high risk Start patient on Protonix and full liquid diet Records requested from [facility] Sarcopenia protein calorie malnourishment related to dysphagia Will benefit from dietary consult Hypothyroid: Continue levothyroxine Syncope: Positional, patient has been experiencing diarrhea, vomiting poor p.o. intake, likely orthostatic, will request echo and orthostatic vitals, Patient has received IV fluids already in the ER Patient has had multiple bruises and trauma secondary to her recurrent falls and syncope Does not have any typical stroke related features Patient lives alone She will consider high risk considering her recurrent syncopal events and falls Patient is stating that she has a daughter who lives in [place] Goals of care discussed with the patient, she is DNR/DNI Full liquid diet DVT prophylaxis: Heparin PDMP PDMP Reviewed: Not Reviewed Attestations Medical Necessity Statement*: more than 2 midnights anticipated for management evaluation of dysphagia, vomiting, aspiration pneumonia, hypoxia Diagnoses Orthostatic syncope I95.1 History of type 2 diabetes mellitus Z86.39 History of CAD (coronary artery disease) Z86.79 Depression F32.A Dysphagia R13.10 Lumbar stenosis with neurogenic claudication M48.062 Syncope R55 Pneumonia J18.9 Acute respiratory failure with hypoxemia J96.01
[2024-08-24] MEDS: AZITHROMYCIN ADD-Vantage 500 MG in 0.9% NaCl ADD-Vantage 250 ML 250 MG IV (20:25)
[2024-08-24] MEDS: cefTRIAXone 1,000 mg SDV 1000 MG IVP (20:26)
[2024-08-24 20:38] LABS: D Dimer 0.56 ug/mLFEU (0-0.59)
[2024-08-24 20:43] LABS: Procalcitonin 1.13 ng/mL (0-0.5)
--- NOTE | 2024-08-24 21:40 | PC.RESP ---
RN said pt was being admitted and to dc the home o2 eval
--- NOTE | 2024-08-24 22:36 | USCV_ITS ---
Taylor Beaver Age: 84 Gender: F : 1940 Exam Date: 08/24/2024 22:47 Ordering Phys: Muriel Alex MD Technologist: GLENIS Exam Location: [facility] [place] Indication: frequent syncope and falls. chronic renal disease, current pneumonia, hx CAD s/p two cardiac stents. BP: 105 / 49 HR: 85 Rhythm: Sinus Technical Quality: Adequate MEASUREMENTS (Male / Female) Normal Values 2D ECHO LV Diastolic Diameter PLAX 4.1 cm 4.2 - 5.9 / 3.9 - 5.3 cm IVS Diastolic Thickness 1.2 cm 0.6 - 1.0 / 0.6 - 0.9 cm IVS Systolic Thickness 1.6 cm LVPW Diastolic Thickness 0.9 cm 0.6 - 1.0 / 0.6 - 0.9 cm LVPW Systolic Thickness 1.1 cm LVOT Diameter 1.9 cm LV Ejection Fraction 2D Teich 45.8 % LV Ejection Fraction MOD 4C 59.6 % LV Ejection Fraction MOD 2C 68.8 % LV Ejection Fraction 2C AL 71.2 % LA Diameter 3.6 cm Aorta at Sinotubular Diameter 2.4 cm IVC Diameter 1.6 cm M-MODE LA Ao Ratio MM 1.3 AV Cusp Separation MM 1.9 cm DOPPLER AV Peak Velocity 200.0 cm/s LVOT Peak Velocity 102.0 cm/s AV Area Cont Eq vti 1.3 cm squared AV Area Cont Eq pk 1.4 cm squared MV Peak Velocity 191.0 cm/s MV Area PHT 2.6 cm squared Mitral E to A Ratio 0.7 TV Peak Velocity 250.5 cm/s TR Peak Velocity 252.0 cm/s TR Peak Gradient 25.4 mmHg TV Peak E Velocity 71.0 cm/s PV Peak Velocity 137.0 cm/s FINDINGS Left Ventricle Left ventricle is normal in size. LV systolic function is normal with EF of 55- 60%. No regional wall motion abnormalities. Grade 1 diastolic dysfunction. Right Ventricle Normal in size and function Right Atrium Normal in size Left Atrium Normal in size Mitral Valve Mild mitral annular calcification. Mild mitral stenosis with mean gradient across the mitral valve of 5.3 mmHg. Mild mitral regurgitation. Aortic Valve Aortic valve is thickened. Mild to moderate aortic regurgitation. Mild aortic stenosis aortic valve area 1.25 cm squared and mean gradient across aortic valve 8 mmHg Tricuspid Valve Mild tricuspid regurgitation. Pulmonary artery systolic pressure is normal. Pulmonic Valve Not well visualized Pericardium Normal Aorta Normal in size IVC Appears to be normal CONCLUSIONS LV systolic function is normal with EF of 55-60% Grade 1 diastolic dysfunction Mild mitral stenosis. Mild mitral regurgitation. Mild to moderate aortic regurgitation. Mild aortic stenosis. Mild tricuspid regurgitation. Agusto Mills MD (Electronically Signed) Final Date: 25 August 2024 09:18 S
[2024-08-24] MEDS: piperacillin-tazobactam 3.375 GM in sodium chloride 0.9% (plus) 50 ML IV (23:40)
[2024-08-24] MEDS: sodium chloride 0.9% 1,000 ML 100 ML IV (23:41)
[2024-08-24] MEDS: heparin 5,000 unit/mL INJ 1 mL 5000 UNIT SUBCUT (23:42)
[2024-08-24] MEDS: ondansetron 2 mg/ML SDV 2 mL 4 MG IVP (23:56)
[2024-08-25] VITALS (32 sets, daily range): BP systolic 98–156; BP diastolic 46–90; PULSE 73–129; RESP 14–33; TEMP 36.6–37.5; O2SAT 91–98; BMI 24.1
[2024-08-25 04:09] LABS: Basophils % 0.2 %; Eosinophils # 0.2 10^3/uL (0.0-0.8); Eosinophils % 1.1 %; Hematocrit 36.4 % (36-47); Lymphocytes % 13.5 %; Mean Corpuscular HGB Conc 30.8 g/dL (30-55); Mean Corpuscular Hemoglobin 30.3 pg (27-33); Mean Corpuscular Volume 98.4 fl (85-98); Mean Platelet Volume 11.5 fL (7.4-10.4); Monocytes # 1.1 10^3/uL (0.2-0.9); Monocytes % 7.1 %; Neutrophils # 11.75 10^3/uL (1.8-7.7); Neutrophils % 77.6 %; Nucleated Red Blood Cells % 0 %; Platelet Count 160 10^3/cmm (157-399); Red Cell Distribution Width 15.5 % (12.1-15.1); White Blood Count 15.13 10^3/uL (3.29-11.43)
[2024-08-25 04:34] LABS: Anion Gap 13.4 (5-19); Blood Urea Nitrogen 11 mg/dL (8-23); C Reactive Protein 41.3 mg/L (0.0-4.9); Carbon Dioxide 24 mmol/L (22-29); Chloride 108 mmol/L (98-107); Creatinine Clr Calc Pharmacy 48.2033; Glucose 91 mg/dL (65-115); Magnesium 1.9 mg/dL (1.7-2.3); Osmolality Calculated 293 mOsm/kg (285-295); Phosphorus 2.4 mg/dL (2.5-4.5); Potassium 3.4 mmol/L (3.5-5.1); Sodium 142 mmol/L (136-145)
[2024-08-25] MEDS: levothyroxine 112 mcg Tablet PO (05:41)
[2024-08-25] MEDS: piperacillin-tazobactam 3.375 GM in sodium chloride 0.9% (plus) 50 ML IV ×3 (05:41→20:45)
[2024-08-25 07:37] LABS: Glucose Point of Care 85 mg/dL (70-110)
[2024-08-25] MEDS: heparin 5,000 unit/mL INJ 1 mL 5000 UNIT SUBCUT ×2 (09:50→20:46)
[2024-08-25] MEDS: pantoprazole DR 40 mg Tablet PO (09:50)
[2024-08-25] MEDS: methylPREDNISolone sod succ 40 mg/mL INJ 30 MG IVP (09:50)
--- NOTE | 2024-08-25 11:22 | FL_ITS ---
WS: [id number] Modified barium swallow, 08/25/2024 Clinical Data: Oral dysphagia Comparison: Esophagram and barium swallow, 08/12/2022 Fluoroscopy time: 1min [id number] # of spot films: 1 Findings: The patient exhibited premature spillage with thin liquids. There was difficulty with the oral sampling of shoaib cracker's. There was minimal vallecular residue. The residue did clear with swallows. There was no aspiration or penetration. The barium tablet passed normally into the esophagus. But the e sophagus was greatly dilated with extremely poor or absent motility. The barium tablet sat motionless in the distal esophagus as did much of the barium. FL/FL barium swallow modifd [id number] Impression: 1. Premature spillage with thin liquids. 2. Negative for aspiration or penetration. 3. Minimal vallecular residue. 4. Poor to absent motility of the distal esophagus with dilatation.
--- NOTE | 2024-08-25 11:23 | CT_ITS ---
WS: [id number] CT NECK TECHNIQUE: Noncontrast CT of the neck with coronal and sagittal reformatted images. CLINICAL INFORMATION: dysphagia, includes esophogus up to stomach please COMPARISON: None. DLP: 645.[address] scans at [facility] use at least one of these dose optimization techniques: automated exposure control; mA and/or kV adjustment per patient size (includes targeted exams where dose is matched to clinical indication); or iterative reconstruction. FINDINGS: Paranasal sinuses are well aerated. Mastoid air cells are well aerated. Resection RIGHT submandibular gland. Normal noncontrast LEFT submandibular gland. Parotid glands are normal. Dense carotid bulb calcification. Normal posterior nasopharynx. No evidence of supraglottic or glottic mass. Normal subglottic airway. Calcified RIGHT thyroid nodule. Fibrosis in the lung apices. Emphysematous changes in the lung apices. No cervical lymphadenopathy. Moderate spondylitic changes cervical spine. CT/CT neck wo con [id number] IMPRESSION: 1. Partially visualized circumferential thickening of the thoracic esophagus. This will be further evaluated Chest CT. 2. No other acute noncontrast neck findings
--- NOTE | 2024-08-25 11:23 | CT_ITS ---
WS: [id number] CT CHEST TECHNIQUE: Noncontrast CT of the chest with coronal and sagittal reformatted images. CLINICAL INFORMATION: dysphagia COMPARISON: None. DLP: 645.[address] scans at [facility] use at least one of these dose optimization techniques: automated exposure control; mA and/or kV adjustment per patient size (includes targeted exams where dose is matched to clinical indication); or iterative reconstruction. FINDINGS: Diffuse circumferential thickening of the thoracic esophagus. Some of this is likely due to chronic esophagitis but neoplasm not excluded. Thickening progressively worse in the distal esophagus extending to the GE junction. Suggestion of intraluminal mass and/or severe stricture near the GE junction. C ontrast not administered neoplasm not excluded in this location. Recommend further evaluation with endoscopy. Moderate esophageal hiatal hernia. Aortic calcification. Coronary calcification. No mediastinal or hilar lymphadenopathy. No axillary lymphadenopathy. Adrenal glands are normal. Cholecystectomy clips. Thoracic kyphosis. Chronic appearing anterior wedging in the mid and lower thoracic spine with prior kyphoplasty changes. Osteopenia. Chronic emphysematous changes with interstitial thickening and fibrotic changes in both lungs. Hazy opacities in the LEFT upper lobe and LEFT lower lobe with subsegmental atelectasis likely infectious or inflammatory. Scattered tiny micronodules. No focal consolidation. CT/CT chest wo con [id number] IMPRESSION: 1. Diffuse circumferential thickening of the thoracic esophagus progressively worse in the lower thoracic esophagus extending to the GE junction. Suspected i ntraluminal mass and/or high-grade stricturing in the distal thoracic esophagus . Neoplasm not excluded. Recommend further evaluation with endoscopy. 2. No mediastinal or hilar lymphadenopathy. 3. Patchy opacities with interstitial thickening in the LEFT upper and lower l obes described above
--- NOTE | 2024-08-25 15:07 | P.PN_ITS ---
Subjective 2 Subjective: Patient was seen this morning, she tells me that she had an esophageal myomectomy when she was in [facility], she says that it did not seem to help with her swallowing, she tells me that whenever she eats especially solid foods he feels like he gets stuck in her throat she at times has to vomit to help to get the food back up, denies any nausea, no vomiting, no abdominal pain, no chest pain, no lightheadedness, dizziness, denies a history of cancer she is not sure what diagnosis she was given but she thinks it might be achalasia Vitals/I&O/Wt Last Vital Signs Temp 97.8 F 08/25/24 13:00 Pulse 78 08/25/24 13:40 Resp 33 H 08/25/24 13:00 BP 156/83 08/25/24 13:00 Pulse Ox 92 08/25/24 13:00 O2 Del Method High Flow Nasal Cannula 08/25/24 13:00 O2 Flow Rate 4 08/25/24 13:00 08/25/24 08/25/24 08/25/24 06:59 14:59 22:59 Intake Total 110 / 360 1450 / 1450 Output Total 525 / 525 Balance 110 / 360 925 / 925 Weight last 48 hrs Weight 65.907 kg Weight 65.726 kg Weight 77.111 kg Physical Exam 2 Const: COMMON NORMALS: no acute distress and patient oriented x3 Resp: COMMON NORMALS: normal respiratory effort, No retractions and No use of accessory muscles AUSCULTATION: crackles and wheezes Cardio: COMMON NORMALS: regular rate, regular rhythm, S1 normal heart sound present and S2 normal heart sound present RATE: regular rate RHYTHM: r egular rhythm HEART SOUNDS: S1 normal heart sound present and S2 normal heart sound present GI: COMMON NORMALS: Normal to inspection, nondistended, normoactive bowel sounds present and non-tender Extremity: COMMON NORMALS: no pedal edema Neuro: COMMON NORMALS: patient oriented x3 Psych: COMMON NORMALS: mental status grossly normal Data 08/25/24 03:29 08/25/24 03:29 Micro: Microbiology 08/24/24 20:35 Blood Culture - Preliminary Blood SPECIMEN COLLECTED 08/24/24 20:03 Blood Culture - Preliminary Blood SPECIMEN COLLECTED A&P Assessment and plan (1) Orthostatic syncope: (2) History of type 2 diabetes mellitus: (3) History of CAD (coronary artery disease): (4) Depression: (5) Dysphagia: (6) Lumbar stenosis with neurogenic claudication: (7) Syncope: (8) Pneumonia: (9) Acute respiratory failure with hypoxemia: Plan Aspiration pneumonia Has history of esophageal dysmotility and esophageal myomectomy Will get records from [place] Continue Zosyn Dysphagia level 4 diet, moderately thickened Acute hypoxic respiratory failure requiring 4 L DuoNeb treatment along steroids D-dimer unremarkable Patient also has hiatal hernia Chronic dysphagia: Esophageal dysmotility achalasia: Previous modified barium study, imaging reviewed, -Will do CT neck, CT chest -Modified barium swallow -Based on results we will discuss with general surgery Dysphagia level 4 diet, moderately thickened Sarcopenia protein calorie malnourishment related to dysphagia Will benefit from dietary consult Hypothyroid: Continue levothyroxine Syncope: Monitor Multiple bruising Patient is stating that she has a daughter who lives in [place] Goals of care discussed with the patient, she is DNR/DNI Dysphagia level 4 diet DVT prophylaxis: Heparin PDMP PDMP Reviewed: Not Reviewed Attestations 2 Medical Necessity Statement*: Patient requires hospitalization for aspiration pneumonia Diagnoses Orthostatic syncope I95.1 History of type 2 diabetes mellitus Z86.39 History of CAD (coronary artery disease) Z86.79 Depression F32.A Dysphagia R13.10 Lumbar stenosis with neurogenic claudication M48.062 Syncope R55 Pneumonia J18.9 Acute respiratory failure with hypoxemia J96.01
[2024-08-25] MEDS: dextrose 5%-sod chloride 0.9% 1,000 ML 75 ML IV (15:59)
[2024-08-25] MEDS: methylPREDNISolone sod succ 40 mg/mL INJ IVP (16:01)
--- NOTE | 2024-08-25 16:46 | P.TS_ITS ---
Transfer Summary Providers Date of Admission: 08/24/24 21:54 Date of Discharge/Transfer: 08/25/24 Attending Provider at Admission: Muriel Alex MD Attending Provider at Transfer: Papa Beal MD Primary Care Provider: JOSAFAT Ojeda Transfer Plans: Anticipated date of transfer: 08/25/24 . Diagnoses at Discharge Discharge Diagnosis (1) Orthostatic syncope: Status: Acute (2) History of type 2 diabetes mellitus: Status: Acute (3) History of CAD (coronary artery disease): Status: Acute (4) Depression: Status: Acute (5) Dysphagia: Status: Acute (6) Lumbar stenosis with neurogenic claudication: Status: Acute (7) Syncope: Status: Acute (8) Pneumonia: Status: Acute (9) Acute respiratory failure with hypoxemia: Status: Acute Reason for Visit Reason for Visit Syncope Hospital Course Hospital Course This is a 84-year-old female with a past medical history of CKD, chronic d ysphagia, history of distal esophageal junction narrowing, hiatal hernia, possible history of esophageal myomectomy in [facility] for dysphagia who presents [facility] for shortness of breath and weakness Patient was admitted to [facility] for concern for aspiration pneumonia, received IV antibiotics, clinically monitored For her complaints of acute on chronic dysphagia, aspiration pneumonia, recurrent vomiting: CT chest shows 1. Diffuse circumferential thickening of the thoracic esophagus progressively worse in the lower thoracic esophagus extending to the GE junction. Suspected intraluminal mass and/or high-grade stricturing in the distal thoracic esophagus. Neoplasm not excluded. Recommend further evaluation with endoscopy. -We do not have general surgery coverage here today 08/25/2024 at [facility] [place] -Patient was transferred to [facility] for the need for general surgery/GI evaluation for EGD Physical Exam Const: COMMON NORMALS: no acute distress and patient oriented x3 Neck/C-Spine: COMMON NORMALS: no JVD Resp: COMMON NORMALS: normal respiratory effort, No retractions, No use of accessory muscles and clear to auscultation bilaterally AUSCULTATION: clear to auscultation bilaterally Cardio: COMMON NORMALS: no JVD, regular rate, regular rhythm, S1 normal heart sound present and S2 normal heart sound present RATE: regular rate RHYTHM: regular rhythm HEART SOUNDS: S1 normal heart sound present and S2 normal heart sound present GI: COMMON NORMALS: Normal to inspection, nondistended, normoactive bowel sounds present and non-tender Extremity: COMMON NORMALS: no pedal edema Neuro: COMMON NORMALS: patient oriented x3 Psych: COMMON NORMALS: mental status grossly normal TS Data Studies Completed and Pending Pending at discharge Category Date Time Status Blood Culture Stat Lab 08/24/24 20:35 Results Completed Studies During Hospitalization Category Date Time Status CT chest wo con [id number] Routine Cat Scan 08/25/24 11:[address] head wo con* [id number] Stat Cat Scan 08/24/24 16:[address] neck wo con [id number] Routine Cat Scan 08/25/24 11:23 Completed Modified barium swallow [FL barium swallow modifd [id number] Exams 08/25/24 11:22 Completed ] Routine XR chest 1V portable [id number] Stat Exams 08/24/24 16:36 Completed CV. echo complete* [id number] Routine Ultrasound 08/24/24 22:36 Completed Laboratory Last Values WBC 15.13 10^3/uL (3.29-11.43) H 08/25/24 03:29 RBC 3.70 10^6/uL (3.85-5.65) L 08/25/24 03:29 Hgb 11.20 g/dL (11.27-16.99) L 08/25/24 03:29 Hct 36.4 % (36-47) 08/25/24 03:29 MCV 98.4 fl (85-98) H 08/25/24 03:29 MCH 30.3 pg (27-33) 08/25/24 03:29 MCHC 30.8 g/dL (30-55) 08/25/24 03:29 RDW 15.5 % (12.1-15.1) H 08/25/24 03:29 Plt Count 160 10^3/cmm (157-399) 08/25/24 03:29 MPV 11.5 fL (7.4-10.4) H 08/25/24 03:29 Neut % (Auto) 77.6 % 08/25/24 03:29 Lymph % (Auto) 13.5 % 08/25/24 03:29 [place]ack[place]ord % (Auto) 7.1 % 08/25/24 03:29 Eos % (Auto) 1.1 % 08/25/24 03:29 Baso % (Auto) 0.2 % 08/25/24 03: Neut # (Auto) 11.75 10^3/uL (1.8-7.7) H 08/25/24 03: Lymph # (Auto) 2.0 10^3/uL (0.8-4.8) 08/25/24 03: Shackelford # (Auto) 1.1 10^3/uL (0.2-0.9) H 08/25/24 03: Eos # (Auto) 0.2 10^3/uL (0.0-0.8) 08/25/24 03: Baso # (Auto) 0.0 10^3/uL (0.0-0.1) 08/25/24 03: Nucleated RBC % (auto) 0 % 08/25/24 03: Nucleated RBCs # 0.0 /100WBC 08/25/24 03: D-Dimer 0.56 ug/mLFEU (0-0.59) 08/24/24 17:33 Sodium 142 mmol/L (136-145) 08/25/24 03: Potassium 3.4 mmol/L (3.5-5.1) L 08/25/24 03: Chloride 108 mmol/L (98-107) H 08/25/24 03: Carbon Dioxide 24 mmol/L (22-29) 08/25/24 03: Anion Gap 13.4 (5-19) 08/25/24 03: BUN 11 mg/dL (8-23) 08/25/24 03: Creatinine 0.8 mg/dL (0.5-0.9) 08/25/24 03:29 GFR Calculation Not Reportable 08/25/24 03: Glucose 91 mg/dL (65-115) 08/25/24 03: POC Glucose 85 mg/dL (70-110) 08/25/24 07:25 Calculated Osmolality 293 mOsm/kg (285-295) 08/25/24 03: Calcium 8.0 mg/dL (8.5-10.5) L 08/25/24 03:29 Phosphorus 2.4 mg/dL (2.5-4.5) L 08/25/24 03:29 Magnesium 1.9 mg/dL (1.7-2.3) 08/25/24 03: Total Bilirubin 0.7 mg/dL (0.15-1.2) 08/24/24 17:33 AST 14 U/L (0-32) 08/24/24 17:33 ALT 9 U/L (0-33) 08/24/24 17:33 Alkaline Phosphatase 73 U/L (35-105) 08/24/24 17:33 C-Reactive Protein 41.3 mg/L (0.0-4.9) H 08/25/24 03: Total Protein 7.4 g/dL (6.6-8.7) 08/24/24 17:33 Albumin 3.8 g/dL (3.5-5.2) 08/24/24 17:33 Globulin 3.6 g/dL (1.3-4.6) 08/24/24 17:33 Procalcitonin 1.13 ng/mL (0-0.5) H 08/24/24 17:33 Influenza A (PCR) Negative (Negative) 08/24/24 17:29 Influenza Type B (PCR) Negative (Negative) 08/24/24 17:29 RSV (PCR) Negative (Negative) 08/24/24 17:29 SARS-CoV-2 (PCR) Negative (Negative) 08/24/24 17:29 Radiology Impressions Chest X-Ray 08/24/24 16:36 IMPRESSION: Pulmonary opacities at the left lung base which could represent pneumonia or aspiration. Head CT 08/24/24 16:42 IMPRESSION: No acute intracranial abnormality. Modified Barium Swallow 08/25/24 11:22 Impression: 1. Premature spillage with thin liquids. 2. Negative for aspiration or penetration. 3. Minimal vallecular residue. 4. Poor to absent motility of the distal esophagus with dilatation. Chest CT 08/25/24 11:23 IMPRESSION: 1. Diffuse circumferential thickening of the thoracic esophagus progressively worse in the lower thoracic esophagus extending to the GE junction. Suspected intraluminal mass and/or high-grade stricturing in the distal thoracic esophagus. Neoplasm not excluded. Recommend further evaluation with endoscopy. 2. No mediastinal or hilar lymphadenopathy. 3. Patchy opacities with interstitial thickening in the LEFT upper and lower lobes described above Neck CT 08/25/24 11:23 IMPRESSION: 1. Partially visualized circumferential thickening of the thoracic esophagus. This will be further evaluated Chest CT. 2. No other acute noncontrast neck findings Recent Clincial Data Last Vital Signs Temp 97.8 F 08/25/24 13:00 Pulse 78 08/25/24 14:00 Resp 27 H 08/25/24 15:00 BP 124/75 08/25/24 15:00 Pulse Ox 93 08/25/24 15:00 O2 Del Method High Flow Nasal Cannula 08/25/24 15:00 O2 Flow Rate 3 08/25/24 15:00 Vital Signs Temp Pulse Resp BP Pulse Ox O2 Del Method O2 Flow Rate 08/25/24 15:00 27 H 124/75 93 High Flow Nasal Cannula 3 08/25/24 14:00 78 15 124/75 94 High Flow Nasal Cannula 3 08/25/24 13:40 78 08/25/24 13:00 97.8 F 79 33 H 156/83 92 High Flow Nasal Cannula 4 08/25/24 12:00 82 28 H 156/83 94 High Flow Nasal Cannula 4 08/25/24 09:15 76 17 98 Nasal Cannula 4 08/25/24 09:00 75 25 H 112/63 97 Room Air 08/25/24 08:00 98 F 77 21 H 134/64 97 High Flow Nasal Cannula 4 08/25/24 07:00 77 23 H 113/57 95 High Flow Nasal Cannula 4 08/25/24 06:00 81 23 H 100/46 95 Nasal Cannula 4 08/25/24 06:00 79 08/25/24 05:30 80 22 H 99/50 93 Nasal Cannula 4 08/25/24 05:00 79 24 H 98/63 93 Nasal Cannula 4 Intake & Output/Weight 08/23/24 08/24/24 08/25/24 08/26/24 06:59 06:59 06:59 06:59 Intake Total 360 / 360 1450 / 1450 Output Total 525 / 525 Balance 360 / 360 925 / 925 Weight 65.907 kg Vitals Last Vital Signs Temp 97.8 F 08/25/24 13:00 Pulse 78 08/25/24 14:00 Resp 27 H 08/25/24 15:00 BP 124/75 08/25/24 15:00 Pulse Ox 93 08/25/24 15:00 O2 Del Method High Flow Nasal Cannula 08/25/24 15:00 O2 Flow Rate 3 08/25/24 15:00 TS Medications Medications Acetaminophen (Acetaminophen 500 Mg Tablet) 500 mg PO Q4H PRN PRN Reason: fever Albuterol/Ipratropium (Ipratropium-Albuterol 3 Ml Neb) 3 ml INHALATION Q6H PRN PRN Reason: SHORTNESS OF BREATH Heparin Sodium (Porcine) (Heparin 5,000 Unit/Ml Inj 1 Ml) 5,000 unit SUBCUT 0900,2100 [facility] Last Admin: 08/25/24 09:50 Dose: 5,000 unit Piperacillin Sod/Tazobactam (Sod 3.375 gm/ Sodium Chloride) 50 mls @ 12.5 mls/hr IV Q8H [facility] Last Admin: 08/25/24 13:26 Dose: 12.5 mls/hr Dextrose/Sodium Chloride (Dextrose 5%-Sod Chloride 0.9%) 1,000 mls @ 75 mls/hr IV .[id number] [facility] Last Admin: 08/25/24 15:59 Dose: 75 mls/hr Levothyroxine Sodium (Levothyroxine 100 Mcg Sdv) 56 mcg IVP DAILY [facility] Methylprednisolone Sodium Succinate (Methylprednisolone Sod Succ 40 Mg/Ml Inj) 40 mg IVP Q12H [facility] Last Admin: 08/25/24 16:01 Dose: 40 mg Morphine Sulfate (Morphine 4 Mg/Ml Sdv 1 Ml) 2 mg IVP Q4H PRN PRN Reason: SEVERE PAIN Ondansetron HCl (Ondansetron 2 Mg/Ml Sdv 2 Ml) 4 mg IVP Q6H PRN PRN Reason: NAUSEA AND VOMITING Last Admin: 08/24/24 23:56 Dose: 4 mg Pantoprazole Sodium (Pantoprazole Dr 40 Mg Tablet) 40 mg PO BID [facility] Last Admin: 08/25/24 09:50 Dose: 40 mg Discontinued Medications Ceftriaxone Sodium (Ceftriaxone 1,000 Mg Sdv) 1,000 mg IVP ONCE ONE; Protocol Stop: 08/24/24 19:09 Last Admin: 08/24/24 20:26 Dose: 1,000 mg Sodium Chloride (Sodium Chloride 0.9%) 1,000 mls @ 999 mls/hr IV .Q1H1M ONE Stop: 08/24/24 17:41 Last Admin: 08/24/24 17:26 Dose: 999 mls/hr Azithromycin 500 mg/ Sodium (Chloride) 250 mls @ 250 mls/hr IV ONCE ONE; Protocol Stop: 08/24/24 20:07 Last Infusion: 08/24/24 21:57 Dose: Infused Sodium Chloride (Sodium Chloride 0.9%) 1,000 mls @ 100 mls/hr IV .Q10H [facility] Stop: 08/25/24 05:00 Last Infusion: 08/25/24 09:49 Dose: Infused Piperacillin Sod/Tazobactam (Sod 3.375 gm/ Sodium Chloride) 50 mls @ 100 mls/hr IV ONCE ONE Stop: 08/24/24 23:29 Last Infusion: 08/25/24 01:31 Dose: Infused Levothyroxine Sodium (Levothyroxine 112 Mcg Tablet) 112 mcg PO QAM [facility] Last Admin: 08/25/24 05:41 Dose: 112 mcg Methylprednisolone Sodium Succinate (Methylprednisolone Sod Succ 40 Mg/Ml Inj) 30 mg IVP Q12H [facility] Last Admin: 08/25/24 09:50 Dose: 30 mg Morphine Sulfate (Morphine Ir 15 Mg Tablet) 15 mg PO Q6H PRN PRN Reason: MODERATE PAIN Allergies No Known Allergies Allergy (Verified 01/06/24 14:09) Home Medications carvedilol 3.125 mg tablet 3.125 mg PO BID 04/30/22 [History Confirmed 08/25/24] pantoprazole 40 mg tablet,delayed release 40 mg PO QAM 04/30/22 [History Confirmed 08/25/24] levothyroxine 112 mcg tablet 112 mcg PO QAM 08/04/22 [History Confirmed 08/25/24] acetaminophen 325 mg tablet 650 mg (2 x 325 mg) PO Q6H PRN Mild/Mod Pain Or Temp >/= 101 #90 tabs 08/13/22 [Rx Confirmed 08/25/24] sertraline 100 mg tablet 200 mg PO DAILY 07/15/23 [History Confirmed 08/25/24] trazodone 50 mg tablet 50 mg PO BEDTIME PRN Sleep 07/15/23 [History Confirmed 08/25/24] cockup splint #1 ea 07/30/23 [Rx Confirmed 08/25/24] meclizine 25 mg tablet 25 mg PO PRN PRN Nausea 11/14/23 [History Confirmed 08/25/24] hydroxyzine HCl 10 mg tablet 10 mg PO TID PRN Itching 08/25/24 [History Confirmed 08/25/24] Discharge Plan Discharge Patient Disposition: Home Condition: Stable Prescriptions: No Action (DME) cockup splint See Rx Instructions .Route .MEDSUPPLY Qty: 1 0RF Rx Instructions: As directed carvedilol 3.125 mg tablet 3.125 mg PO BID Rx Instructions: must administer with a meal/food pantoprazole 40 mg tablet,delayed release (DR/EC) 40 mg PO QAM sertraline 100 mg tablet 200 mg PO DAILY trazodone 50 mg tablet 50 mg PO BEDTIME PRN (Reason: Sleep) levothyroxine 112 mcg tablet 112 mcg PO QAM acetaminophen 325 mg Tablet 650 mg PO Q6H PRN (Reason: Mild/Mod Pain Or Temp >/= 101) Qty: 90 0RF meclizine 25 mg tablet 25 mg PO PRN PRN (Reason: Nausea) hydroxyzine HCl 10 mg tablet 10 mg PO TID PRN (Reason: Itching) Referrals: Jaun Torres MD [Referring] - Patient Instructions: Opioid Safety Transfer Attestations Time Spent in Transfer Care: greater than 30 min Quality Metrics Clinical Quality Measures [ No reported AMI, CVA or VTE this stay] Coding Level of Care Code Acute Code for [facility] Fwd Diagnoses Orthostatic syncope I95.1 History of type 2 diabetes mellitus Z86.39 History of CAD (coronary artery disease) Z86.79 Depression F32.A Dysphagia R13.10 Lumbar stenosis with neurogenic claudication M48.062 Syncope R55 Pneumonia J18.9 Acute respiratory failure with hypoxemia J96.01
--- NOTE | 2024-08-25 18:32 | PC.NURSE ---
Shift summary: Pt did not report pain throughout shift. She got out of bed to chair for lunch. Her appetite at breakfast and lunch was poor, she just picked. Now that she is NPO she is stating she is hungry and thirsty. Modified barium swallow, CT of chest and nek completed this shift. She is NPO due to CT findings. VSS Sinus rhtyhm noted on monitor. Oxygen needs 2-4 lpm this shift. She has a non productive cough. It is frustrating her as she is incontinent of urine with coughing episodes. She is to transfer to [facility] at some point for her esophagus.
[2024-08-25] MEDS: pantoprazole 40 mg SDV IVP (20:46)
--- NOTE | 2024-08-25 21:48 | PC.NURSE ---
Called report to Muna Hardy at [facility] at [phone].
--- NOTE | 2024-08-25 22:36 | PC.NURSE ---
Pt left unit with [facility] transport at [phone].
== END 2024-08-25 22:31 | disposition short-term general hospital (02) | DRG 177 ==
LOC: ER 19:34 → ICU 21:55
PROVIDERS: Admitting Provider Internal Medicine; Emergency Provider Emergency Medicine; PCP Nurse Practitioner Family; Visit Provider Family Medicine
DX: J69.0 Pneumonitis due to inhalation of food and vomit (principal); J96.01 Acute respiratory failure with hypoxia; E46 Unspecified protein-calorie malnutrition; E11.9 Type 2 diabetes mellitus without complications; I25.10 Atherosclerotic heart disease of native coronary artery without angina pectoris; F32.A Depression, unspecified; R13.19 Other dysphagia; M48.062 Spinal stenosis, lumbar region with neurogenic claudication; R55 Syncope and collapse; E11.22 Type 2 diabetes mellitus with diabetic chronic kidney disease; N18.9 Chronic kidney disease, unspecified; I45.4 Nonspecific intraventricular block; E03.9 Hypothyroidism, unspecified; Z66 Do not resuscitate; Z68.24 Body mass index [BMI] 24.0-24.9, adult; Z87.891 Personal history of nicotine dependence
CPT/HCPCS: 36415; 36416; 70450; 70490; 71045; 71250; 74230; 80048; 80053; 82962; 83735; 84100; 84145; 85025; 85378; 86140; 87040; 87637; 92611; 93005; 93306; 94664; 96365; 96372; 96375; 99285; J0456; J0696; J1644; J2405; J2470; J2543; J2919; J7030; J7042; J7050; J9999

== ENCOUNTER → 2024-10-26 14:06 | Outpatient (BNVA) | payer MEDICARE, SELFPAY | PROVIDERS: PCP Nurse Practitioner Family; Visit Provider Orthopaedic Surgery | DX: M54.9 Dorsalgia, unspecified (principal); M25.559 Pain in unspecified hip | CPT/HCPCS: 72100; 73523; 99214 ==

== ENCOUNTER 2024-11-18 18:05 | Inpatient (IN) | payer MEDICARE, SELFPAY ==
[2024-11-18] VITALS (9 sets, daily range): BP systolic 154–191; BP diastolic 63–109; PULSE 76–91; RESP 16–22; TEMP 36.7–36.9; O2SAT 90–98; BMI 22.8
--- NOTE | 2024-11-18 18:12 | ECG_ITS ---
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1940 Requested By: Marii Kim Order Number: [id number] Reading MD: DESTINY LALA Measurements Intervals Helper Rate: 86 P: 80 AR: 134 QRS: 76 QRSD: 146 T: 78 QT: 439 QTc: 528 Interpretive Statements SINUS RHYTHM RIGHT BUNDLE BRANCH BLOCK [120+ ms QRS DURATION, UPRIGHT V1, 40+ ms S IN I/aVL/V4/V5/V6] INTERPRETATION BASED ON A DEFAULT AGE OF 40 YEARS Compared to ECG 08/24/2024 16:36:42 Indeterminate axis no longer present Electronically Signed On 11-20-2024 23:52:02 CDT by DESTINY LALA [email or web address]
--- NOTE | 2024-11-18 18:17 | XRR_ITS ---
PROCEDURE INFORMATION: Exam: XR Chest Exam date and time: 11/18/2024 7:47 PM Age: 84 years old Clinical indication: Pain; Chest pressure; Additional info: Chest pain TECHNIQUE: Imaging protocol: Radiologic exam of the chest. Views: 1 view. COMPARISON: CT chest [facility] [id number] 08/25/2024 2:17 PM FINDINGS: Lungs: Chronic interstitial fibrosis and scarring throughout both lungs. No infiltrates or consolidation. Pleural spaces: Unremarkable. No pleural effusion. No pneumothorax. Heart/Mediastinum: Unremarkable. No cardiomegaly. Bones/joints: Unremarkable. XR/XR chest 1V portable [id number] IMPRESSION: No acute cardiopulmonary abnormality.
--- NOTE | 2024-11-18 18:24 | W.ED.CHESTPA ---
HPI - Chest Pain General: Chief Complaint: Chest Pain Stated Complaint: chest pain, nausea Time Seen by Provider: 11/18/24 18:11 History of Present Illness: 84-year-old female with a history of coronary artery disease, hypothyroidism, hyperlipidemia, depression, hypertension and type 2 diabetes mellitus who presents to the emergency room by ambulance with chest pain. This started last night. She took 2 nitro with some relief last night. She also has been having some nausea for 2 days. Chest pressure returned today. She says it was very severe earlier. She received nitro en route and now just has chest pressure which has improved from earlier some. No abdominal pain. No altered mental status. Related Data Home Medications ?Medication ?Instructions ?Recorded ?Confirmed carvedilol 3.125 mg tablet 3.125 mg PO BID 04/30/22 10/26/24 pantoprazole 40 mg tablet,delayed 40 mg PO QAM 04/30/22 10/26/24 release levothyroxine 112 mcg tablet 112 mcg PO QAM 08/04/22 10/26/24 sertraline 100 mg tablet 200 mg PO DAILY 07/15/23 10/26/24 trazodone 50 mg tablet 50 mg PO BEDTIME PRN Sleep 07/15/23 10/26/24 meclizine 25 mg tablet 25 mg PO PRN PRN Nausea 11/14/23 10/26/24 hydroxyzine HCl 10 mg tablet 10 mg PO TID PRN Itching 08/25/24 10/26/24 Previous Rx's ?Medication ?Instructions ?Recorded acetaminophen 325 mg tablet 650 mg (2 x 325 mg) PO Q6H PRN 08/13/22 Mild/Mod Pain Or Temp >/= 101 #90 tabs cockup splint #1 ea 07/30/23 tramadol 50 mg tablet 50 mg PO TID pain 7 days #21 tabs 10/26/24 Allergies Allergy/AdvReac Type Severity Reaction Status Date / Time No Known Allergies Allergy Verified 01/06/24 14:09 Review of Systems Narrative: Constitutional symptoms: Negative except as documented in HPI. Skin symptoms: Negative except as documented in HPI. Eye symptoms: Negative except as documented in HPI. ENMT symptoms: Negative except as documented in HPI. Respiratory symptoms: Negative except as documented in HPI. Cardiovascular symptoms: Negative except as documented in HPI. Gastrointestinal symptoms: Negative except as documented in HPI. Genitourinary symptoms: Negative except as documented in HPI. Musculoskeletal symptoms: Negative except as documented in HPI. Neurologic symptoms: Negative except as documented in HPI. Psychiatric symptoms: Negative except as documented in HPI. Endocrine symptoms: Negative except as documented in HPI. PFSH ED PFSH: Medical History History of CAD (coronary artery disease) History of nephrolithiasis History of hypothyroidism History of hyperlipidemia History of depression History of hypertension History of type 2 diabetes mellitus Lumbar stenosis with neurogenic claudication Surgical History Post-operative state History of heart artery stent History of back surgery History of left hip replacement Family History Mother CAD (coronary artery disease) Social History Smoking and tobacco/nicotine status: never used tobacco/nicotine Alcohol intake: never Substance/Drug Use: never Physical Exam Narrative: EXAM NARRATIVE: General: Alert, no acute distress. Skin: Warm, dry. Head: Normocephalic, atraumatic. Neck: Supple, trachea midline. Eye: Extraocular movements are intact. Ears, nose, mouth and throat: mucosa moist. Cardiovascular: Regular, Normal peripheral perfusion. Respiratory: Lungs are clear to auscultation, respirations are non-labored, breath sounds are equal, Symmetrical chest wall expansion. Gastrointestinal: Soft, Nontender, Non distended Musculoskeletal: Normal ROM, no deformity. Neurological: Alert and oriented, No focal neurological deficit observed. Psychiatric: Cooperative, appropriate mood & affect. Course Vital Signs: Vital signs: Vital Signs Temperature 98.0 F 11/18/24 18:07 Pulse Rate 86 11/18/24 18:42 Respiratory Rate 22 H 11/18/24 18:42 Blood Pressure 154/63 11/18/24 18:42 Pulse Oximetry 90 11/18/24 18:42 Oxygen Delivery Me thod Room Air 11/18/24 18:42 MDM - Chest Pain Medical Decision Making Differential diagnosis for patient with chest pain includes but is not limited to and based on the above HPI, review of systems and physical exam: Pneumonia. unstable angina. angina. Acute coronary syndrome / [place]. Pulmonary embolism. Costochondritis / musculoskeletal. Pleurisy. Pericarditis. Esophageal spasm. Pancreatis. Cholecystitis. Orders placed to evaluate differential diagnosis based on the above differential, HPI and physical exam EKG: Time 181. Rate 86. Normal sinus rhythm, No ST-T changes, no ectopy, right bundle branch block, This was reviewed and interpreted by myself the ER physician at 1815 Chest x-ray: No acute process. No infiltrate. No pneumothorax. This was reviewed and interpreted by myself the emergency room physician. I also reviewed the radiology report. Lab Review: Laboratory results were reviewed and interpreted by myself the emergency room physician. No leukocytosis. No anemia. No renal failure. Initial troponin is 13. proBNP is elevated over baseline at 1568. Liver enzymes are normal. Lipase is normal. HEART Pathway for Early Discharge in Acute Chest Pain from [employer] on 11/18/2024 All calculations should be rechecked by clinician prior to use RESULT SUMMARY: 6 points HEART Pathway Score High risk 12-65% 30-day MACE Admit to hospital or observation. Further testing indicated. INPUTS: History ?> 2 = Highly suspicious EKG ?> 0 = Normal Age ?> 2 = >=5 Risk factors ?> 2 = >= risk factors or history of atherosclerotic disease Initial troponin ?> 0 = <=ormal limit I reviewed the patient's medical record. Reexamination: Patient reports that nitro relieved her chest pain. Her blood pressure is also improved with the nitroglycerin. Patient remained stable. No increased work of breathing. No altered mental status. No focal motor deficits. Consultation: I spoke with Dr. Smith who who is on-call for the hospitalist service who agrees to admission to observation. Assessment and plan: Chest pain Coronary artery disease ?Nitroglycerin in the emergency room. Aspirin on the ambulance. -I discussed the patient with the hospitalist on-call who is admitting the patient. - Discussed findings and plan with patient. Answered any questions. - All laboratory values were reviewed and interpreted personally by myself, the ER physician - All imaging was reviewed and interpreted personally by myself, the ER physician. - Evaluation and treatment of this problem were appropriate in the emergency setting Lab Data 11/18/24 18:20 11/18/24 18:20 Laboratory Results WBC 6.75 10^3/uL (3.29-11.43) 11/18/24 18:20 RBC 3.98 10^6/uL (3.85-5.65) 11/18/24 18:20 Hgb 12.20 g/dL (11.27-16.99) 11/18/24 18:20 Hct 38.4 % (36-47) 11/18/24 18:20 MCV 96.5 fl (85-98) 11/18/24 18:20 MCH 30.7 pg (27-33) 11/18/24 18:20 MCHC 31.8 g/dL (30-55) 11/18/24 18:20 RDW 15.3 % (12.1-15.1) H 11/18/24 18:20 Plt Count 260 10^3/cmm (157-399) 11/18/24 18:20 MPV 10.2 fL (7.4-10.4) 11/18/24 18:20 Neut % (Auto) 63.5 % 11/18/24 18:20 Lymph % (Auto) 26.1 % 11/18/24 18:20 Addison % (Auto) 8.1 % 11/18/24 18:20 Eos % (Auto) 1.0 % 11/18/24 18:20 Baso % (Auto) 0.7 % 11/18/24 18:20 Neut # (Auto) 4.28 10^3/uL (1.8-7.7) 11/18/24 18:20 Lymph # (Auto) 1.8 10^3/uL (0.8-4.8) 11/18/24 18:20 Addison # (Auto) 0.6 10^3/uL (0.2-0.9) 11/18/24 18:20 Eos # (Auto) 0.1 10^3/uL (0.0-0.8) 11/18/24 18:20 Baso # (Auto) 0.1 10^3/uL (0.0-0.1) 11/18/24 18:20 Nucleated RBC % (auto) 0 % 11/18/24 18:20 Nucleated RBCs # 0.0 /100WBC 11/18/24 18:20 Sodium 138 mmol/L (136-145) 11/18/24 18:20 Potassium 4.5 mmol/L (3.5-5.1) 11/18/24 18:20 Chloride 100 mmol/L (98-107) 11/18/24 18:20 Carbon Dioxide 24 mmol/L (22-29) 11/18/24 18:20 Anion Gap 18.5 (5-19) 11/18/24 18:20 BUN 12 mg/dL (8-23) 11/18/24 18:20 Creatinine 0.6 mg/dL (0.5-0.9) 11/18/24 18:20 GFR Calculation Not Reportable 11/18/24 18:20 Glucose 87 mg/dL (65-115) 11/18/24 18:20 Calculated Osmolality 285 mOsm/kg (285-295) 11/18/24 18:20 Calcium 8.9 mg/dL (8.5-10.5) 11/18/24 18:20 Total Bilirubin 0.5 mg/dL (0.15-1.2) 11/18/24 18:20 AST 19 U/L (0-32) 11/18/24 18:20 ALT 7 U/L (0-33) 11/18/24 18:20 Alkaline Phosphatase 86 U/L (35-105) 11/18/24 18:20 Troponin T Baseline 13 ng/L (0-10) H 11/18/24 18:20 NT-Pro-B Natriuret Pep 1568 pg/mL (0-450) H 11/18/24 18:20 Total Protein 7.3 g/dL (6.6-8.7) 11/18/24 18:20 Albumin 4.1 g/dL (3.5-5.2) 11/18/24 18:20 Globulin 3.2 g/dL (1.3-4.6) 11/18/24 18:20 Lipase 16 U/L (13-60) 11/18/24 18:20 All radiology interpretation(s) finalized by discharge Clincial Decision Support The following clinical decision support tools were used to aid in care of the patient HEART Score -> History: Highly Suspicious, EKG: Normal, Age: 65 or more yrs, Risk Factors: >/=3 Risk Factors, Troponin: Baseline Trop <16 ng/L. Resulting HEART Score: 6. 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
[2024-11-18 18:34] LABS: Basophils # 0.1 10^3/uL (0.0-0.1); Basophils % 0.7 %; Eosinophils # 0.1 10^3/uL (0.0-0.8); Hematocrit 38.4 % (36-47); Lymphocytes # 1.8 10^3/uL (0.8-4.8); Lymphocytes % 26.1 %; Mean Corpuscular HGB Conc 31.8 g/dL (30-55); Mean Corpuscular Hemoglobin 30.7 pg (27-33); Mean Corpuscular Volume 96.5 fl (85-98); Mean Platelet Volume 10.2 fL (7.4-10.4); Monocytes # 0.6 10^3/uL (0.2-0.9); Monocytes % 8.1 %; Neutrophils # 4.28 10^3/uL (1.8-7.7); Neutrophils % 63.5 %; Nucleated Red Blood Cells % 0 %; Platelet Count 260 10^3/cmm (157-399); Red Blood Count 3.98 10^6/uL (3.85-5.65); Red Cell Distribution Width 15.3 % (12.1-15.1); White Blood Count 6.75 10^3/uL (3.29-11.43)
[2024-11-18 18:55] LABS: Troponin(5th) Baseline 13 ng/L (0-10)
[2024-11-18] MEDS: nitroglycerin 0.4 mg sublingual Tablet SUBLINGUAL (19:00)
[2024-11-18 19:02] LABS: Alanine Aminotransferase 7 U/L (0-33); Albumin Level 4.1 g/dL (3.5-5.2); Alkaline Phosphatase 86 U/L (35-105); Blood Urea Nitrogen 12 mg/dL (8-23); Calcium 8.9 mg/dL (8.5-10.5); Carbon Dioxide 24 mmol/L (22-29); Chloride 100 mmol/L (98-107); Creatinine Clr Calc Pharmacy 47.0609; Globulin 3.2 g/dL (1.3-4.6); Glucose 87 mg/dL (65-115); Lipase 16 U/L (13-60); NT Pro B Type Natriuretic Pept 1568 pg/mL (0-450); Osmolality Calculated 285 mOsm/kg (285-295); Sodium 138 mmol/L (136-145); Total Bilirubin 0.5 mg/dL (0.15-1.2); Total Protein 7.3 g/dL (6.6-8.7)
[2024-11-18 19:05] LABS: Anion Gap 18.5 (5-19); Potassium 4.5 mmol/L (3.5-5.1)
[2024-11-18 19:06] LABS: Aspartate Amino Transferase 19 U/L (0-32)
--- NOTE | 2024-11-18 20:17 | ECG_ITS ---
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
--- NOTE | 2024-11-18 21:32 | USCV_ITS ---
Taylor Beaver Age: 84 Gender: F : 1940 Exam Date: 11/18/2024 21:40 Ordering Phys: Rupal Smith MD Technologist: GLENIS Exam Location: [facility] – [place] Indication: chest pain, hx CAD, HL, HTN, DM2 BP: 191 / 90 HR: 80 Rhythm: Sinus Technical Quality: Adequate MEASUREMENTS (Male / Female) Normal Values 2D ECHO LV Diastolic Diameter PLAX 4.1 cm 4.2 - 5.9 / 3.9 - 5.3 cm IVS Diastolic Thickness 1.2 cm 0.6 - 1.0 / 0.6 - 0.9 cm IVS Systolic Thickness 1.7 cm LVPW Diastolic Thickness 1.0 cm 0.6 - 1.0 / 0.6 - 0.9 cm LVPW Systolic Thickness 1.3 cm LVOT Diameter 2.1 cm LV Ejection Fraction 2D Teich 56.8 % LV Ejection Fraction MOD 4C 63.3 % LV Ejection Fraction MOD 2C 58.1 % LV Ejection Fraction 2C AL 57.9 % LA Diameter 2.4 cm Aorta at Sinotubular Diameter 2.2 cm IVC Diameter 1.4 cm M-MODE LA Ao Ratio MM 0.9 AV Cusp Separation MM 1.6 cm DOPPLER AV Peak Velocity 149.0 cm/s MV Peak Velocity 114.0 cm/s MV Area PHT 4.2 cm squared Mitral E to A Ratio 0.6 TR Peak Velocity 248.0 cm/s TR Peak Gradient 24.6 mmHg TV Peak E Velocity 56.0 cm/s PV Peak Velocity 97.0 cm/s FINDINGS Left Ventricle Normal left ventricular size, systolic function and wall thickness, with no regional wall motion abnormalities. Left ventricular ejection fraction is estimated at 55%. Grade I/IV diastolic dysfunction (abnormal relaxation filling pattern), normal to mildly elevated filling pressures. Right Ventricle The right ventricle is normal in size and function. Right Atrium The right atrium is normal in size. Left Atrium The left atrium is normal in size. Mitral Valve Mildly thickened mitral valve. No mitral valve stenosis. Mild mitral valve regurgitation. Aortic Valve Moderate aortic valve calcification. No aortic valve stenosis. Trace aortic valve regurgitation. Tricuspid Valve Mild tricuspid valve regurgitation. Pulmonic Valve Trace pulmonary valve regurgitation. Pericardium Normal pericardium without effusion. Aorta Normal ascending aorta dimension. IVC The inferior vena cava appears normal. CONCLUSIONS Normal left ventricular size, systolic function and wall thickness, with no regional wall motion abnormalities. Left ventricular ejection fraction is estimated at 55%. Grade I/IV diastolic dysfunction (abnormal relaxation filling pattern), normal to mildly elevated filling pressures. Mildly thickeneModerate aortic valve calcification. No aortic valve stenosis. Trace aortic valve regurgitation. d mitral valve. No mitral valve stenosis. Mild mitral valve regurgitation. Mild tricuspid valve regurgitation. There is no pericardial effusion. Right atrial pressure is around 5 mm of mercury. Muriel Burkett MD (Electronically Signed) Final Date: 22 November 2024 21:43 S
--- NOTE | 2024-11-18 21:33 | PM.HP ---
Providers/Chief Complaint Admitting Physician: Rupal Smith MD--- patient seen and evaluated before 12 midnight Primary Care Provider: JOSAFAT Ojeda Chief Complaint: chest pain, nausea History of Present Illness Taylor Beaver is a 84 year old female with medical history significant for heart disease. Patient's symptomatology started just in night before presentation with she felt chest heaviness associated with nausea and vomiting. It was the next day which was the night of presentation patient then came to the emergency room to be evaluated. EKG did not show any ischemic overtone patient BNP was slightly elevated at 1568. Patient received some aspirin upon arrival and had had nitroglycerin while at home on the first day of symptomatology and that resolved at this second day the nitro could not help and patient then came to the emergency room for care. He had continued with chest pain protocol. Patient is scheduled for Lexiscan and had been made n.p.o. with cardiology consultation with Dr. Burkett Review of Systems Narrative: System review of 110 organ review with significant for cardiovascular system and gastrointestinal system for chest pain and nausea and vomiting. Medications/Allergies Home Medications ?Medication ?Instructions ?Recorded ?Confirmed ?Last Taken ?Type carvedilol 3.125 mg tablet 3.125 mg PO BID 04/30/22 11/18/24 08/24/24 History pantoprazole 40 mg tablet,delayed 40 mg PO QAM 04/30/22 11/18/24 08/24/24 History release levothyroxine 112 mcg tablet 112 mcg PO QAM 08/04/22 11/18/24 08/24/24 History sertraline 100 mg tablet 200 mg PO DAILY 07/15/23 11/18/24 08/24/24 History trazodone 50 mg tablet 50 mg PO BEDTIME PRN Sleep 07/15/23 11/18/24 11/13/23 History cockup splint #1 ea 07/30/23 10/26/24 Unknown Rx gabapentin 100 mg capsule 100 mg PO TID PRN Pain 11/18/24 11/18/24 Unknown History nitroglycerin 0.4 mg sublingual 0.4 mg sublingual Q5M PRN Chest 11/18/24 11/18/24 Unknown History tablet Pain ondansetron 4 mg disintegrating 4 mg PO Q6H PRN Nausea And Vomiting 11/18/24 11/18/24 Unknown History tablet tramadol 50 mg tablet 50 mg PO Q8H PRN Pain 11/19/24 11/19/24 Unknown History Allergies Allergy/AdvReac Type Severity Reaction Status Date / Time No Known Allergies Allergy Verified 01/06/24 14:09 PFSH Acute PFSH: Medical History History of CAD (coronary artery disease) History of nephrolithiasis History of hypothyroidism History of hyperlipidemia History of depression History of hypertension History of type 2 diabetes mellitus Lumbar stenosis with neurogenic claudication Surgical History Post-operative state History of heart artery stent History of back surgery History of left hip replacement Family History Mother CAD (coronary artery disease) Social History Smoking and tobacco/nicotine status: never used tobacco/nicotine Alcohol intake: never Substance/Drug Use: never Vitals/I&O/Wt Last Vital Signs Temp 98.0 F 11/18/24 18:07 Pulse 83 11/18/24 21:12 Resp 19 H 11/18/24 21:02 BP 155/77 11/18/24 21:12 Pulse Ox 95 11/18/24 21:12 O2 Del Method Nasal Cannula 11/18/24 21:02 O2 Flow Rate 2 11/18/24 21:02 Weight last 48 hrs Weight 62.142 kg Physical Exam Narrative: Generally patient is alert awake oriented x 3 able to know her needs and make them known. HEENT normocephalic/atraumatic neck neck is supple cardiovascular heart rate is regular lungs are pretty much clear abdomen is soft nontender nondistended unremarkable extremities are intact no edema has good pulses neurology no focality lab studies lab studies reviewed and noted. Data 11/19/24 05:12 11/19/24 05:12 A&P Assessment and plan (1) Chest pain: Continue anticoagulants with antiplatelets Schedule patient for Lexiscan with cardiology consultation Continue supportive care with antiemetic because of associated nausea and vomiting Lexiscan ordered for the patient patient has been n.p.o. and case discussed fully with cardiology this morning. PDMP PDMP Reviewed: Not Reviewed Attestations Medical Necessity Statement*: Patient with a very typical chest pain chest pressure with associated nausea vomiting for 2 days prior to presenting to the emergency room does need workup in the setting of her history of heart disease. Case discussed with cardiology cardiology would like to see the patient this morning and follow through with care. Patient is of inpatient Coding Level of Care Code 13096 Diagnoses Chest pain R07.9 Time Spent (min) 60
[2024-11-18] MEDS: ondansetron 2 mg/ML SDV 2 mL 4 MG IVP (22:09)
[2024-11-18] MEDS: pantoprazole 40 mg SDV IVP (22:09)
[2024-11-18] MEDS: morphine 4 mg/mL SDV 1 mL 2 MG IVP (22:09)
[2024-11-18] MEDS: heparin 5,000 unit/mL INJ 1 mL 5000 UNIT SUBCUT (22:09)
[2024-11-18] MEDS: sodium chloride 0.9% 1,000 ML 75 ML IV (22:10)
[2024-11-19] VITALS (12 sets, daily range): BP systolic 119–189; BP diastolic 58–90; PULSE 65–84; RESP 14–22; TEMP 36.4–36.8; O2SAT 91–93
--- NOTE | 2024-11-19 00:17 | ECG_ITS ---
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
[2024-11-19] MEDS: morphine 4 mg/mL SDV 1 mL 2 MG IVP ×2 (02:01→07:46)
[2024-11-19] MEDS: TRAMadol 50 mg Tablet PO (03:24)
[2024-11-19] MEDS: trazodone 50 mg Tablet PO (03:24)
[2024-11-19] MEDS: HYDROmorphone 0.5 MG/0.5 ML INJ 1 MG IVP (05:00)
[2024-11-19 05:20] LABS: Basophils # 0.1 10^3/uL (0.0-0.1); Basophils % 0.7 %; Eosinophils # 0.2 10^3/uL (0.0-0.8); Eosinophils % 2.6 %; Hematocrit 37.7 % (36-47); Lymphocytes # 1.9 10^3/uL (0.8-4.8); Lymphocytes % 25.5 %; Mean Corpuscular HGB Conc 31.3 g/dL (30-55); Mean Corpuscular Hemoglobin 30.5 pg (27-33); Mean Corpuscular Volume 97.4 fl (85-98); Mean Platelet Volume 9.9 fL (7.4-10.4); Monocytes # 0.6 10^3/uL (0.2-0.9); Monocytes % 8.6 %; Neutrophils # 4.63 10^3/uL (1.8-7.7); Neutrophils % 62.3 %; Nucleated Red Blood Cells % 0 %; Platelet Count 233 10^3/cmm (157-399); Red Blood Count 3.87 10^6/uL (3.85-5.65); Red Cell Distribution Width 15.4 % (12.1-15.1); White Blood Count 7.42 10^3/uL (3.29-11.43)
[2024-11-19 05:45] LABS: Alanine Aminotransferase 7 U/L (0-33); Alkaline Phosphatase 85 U/L (35-105); Anion Gap 16.6 (5-19); Aspartate Amino Transferase 16 U/L (0-32); Blood Urea Nitrogen 15 mg/dL (8-23); Carbon Dioxide 26 mmol/L (22-29); Chloride 101 mmol/L (98-107); Creatinine Clr Calc Pharmacy 47.6828; Globulin 3.8 g/dL (1.3-4.6); Glucose 87 mg/dL (65-115); Osmolality Calculated 290 mOsm/kg (285-295); Phosphorus 2.9 mg/dL (2.5-4.5); Potassium 3.6 mmol/L (3.5-5.1); Sodium 140 mmol/L (136-145); Total Bilirubin 0.5 mg/dL (0.15-1.2); Total Protein 7.8 g/dL (6.6-8.7)
--- NOTE | 2024-11-19 10:01 | PC.SOCIAL ---
IMM Update pg 2 of IMM updated and reviewed w/ patient. Copy provided. Copy dated, initialed and placed in chart.
[2024-11-19] MEDS: aspirin 81 mg Chew Tablet 324 MG PO (10:05)
[2024-11-19] MEDS: HYDROmorphone 0.5 MG/0.5 ML INJ IVP (10:07)
--- NOTE | 2024-11-19 11:31 | PC.NURSE ---
This nurse was informed by Nuclear Medicine that the patient wished to stop the stress test and does not want to proceed.
[2024-11-19] MEDS: carvedilol 3.125 mg Tablet PO ×2 (11:57→16:40)
[2024-11-19] MEDS: sertraline 100 mg Tablet 200 MG PO (11:57)
--- NOTE | 2024-11-19 13:44 | USCV_ITS ---
Taylor Beaver Age: 84 Gender: F : 1940 Exam Date: 11/19/2024 14:04 Ordering Phys: Papa Beal MD Technologist: [employer] [place] [facility] [place]: R/O DVT HISTORY: R/O DVT PROCEDURES: Venous duplex imaging was performed in bilateral lower extremities. The following venous structures were evaluated: common femoral vein, profunda vein, proximal portion of the greater saphenous vein, superficial femoral vein, and the popliteal vein. In addition, the posterior tibial and peroneal trunk were evaluated. FINDINGS: No evidence of DVT seen in any vessel visualized at this time. CONCLUSIONS No evidence of right lower extremity DVT. No evidence of left lower extremity DVT. Alfred Schofield MD (Electronically Signed) Final Date: 19 November 2024 16:17 S
--- NOTE | 2024-11-19 13:51 | PM.PN ---
Subjective Subjective: Patient was examined this morning, she denies any active chest pain, discussed with her that I have ordered a cardiac stress test will see if he can be done today, if not we will see what her echocardiogram shows, we may have to keep her over the weekend depending on her repeat troponins, her symptomatology and echocardiogram to do a stress test on Friday. Her main complaint is is that she has been following up with Dr. Tapia, she had a fall she has a hip replacement on the left hip, with extension into the mid femur,, there is concerns for hardware loosening she tells me, she is being referred to [facility] for consideration of surgical intervention, patient continues to have tenderness along her left inner thigh Vitals/I&O/Wt Last Vital Signs Temp 98.3 F 11/19/24 12:00 Pulse 74 11/19/24 12:00 Resp 16 11/19/24 12:00 BP 148/80 11/19/24 12:00 Pulse Ox 93 11/19/24 12:00 O2 Del Method Room Air 11/19/24 12:00 O2 Flow Rate 2 11/18/24 23:41 11/18/24 11/19/24 11/19/24 22:59 06:59 14:59 Intake Total 0 / 0 0 / 0 Output Total 150 / 150 Balance 0 / 0 -150 / -150 Weight last 48 hrs Weight 64.093 kg Weight 62.142 kg Weight 62.142 kg Physical Exam Const: COMMON NORMALS: no acute distress and patient oriented x3 Resp: COMMON NORMALS: normal respiratory effort, No retractions, No use of accessory muscles and clear to auscultation bilaterally AUSCULTATION: clear to auscultation bilaterally Cardio: COMMON NORMALS: regular rate, regular rhythm, S1 normal heart sound present and S2 normal heart sound present RATE: regular rate RHYTHM: regular rhythm HEART SOUNDS: S1 normal heart sound present and S2 normal heart sound present GI: COMMON NORMALS: Normal to inspection, nondistended, normoactive bowel sounds present and non-tender Extremity: COMMON NORMALS: no pedal edema Neuro: COMMON NORMALS: patient oriented x3 Psych: COMMON NORMALS: mental status grossly normal Data 11/19/24 05:12 11/19/24 05:12 A&P Assessment and plan (1) Chest pain: (2) Left leg pain: (3) History of hypertension: (4) History of CAD (coronary artery disease): Plan Chest pain -EKG no acute ST-T wave changes, right bundle branch block -Serial EKGs, serial troponins, telemetry monitoring - Aspirin, statin, Coreg - Cardiac echo -Cardiac stress test ordered - If stress test cannot be performed today, depending on symptomatology might have to be here till Friday versus outpatient testing Left leg pain, will order venous ultrasound Left inner thigh pain - History of left total hip replacement, with healed fracture of left femur with intramedullary vika and encircling cables - Concern for loosening - She has been referred to [facility] for consideration of surgical invention - At baseline she does not ambulate, she typically transfers on her own, but is in a motorized wheelchair - He has intractable pain, pain control as inpatient PDMP PDMP Reviewed: Last Reviewed 11/19/24 10:19 by Paap Beal MD Attestations Medical Necessity Statement*: Patient requires hospitalization for chest pain, left leg pain, left inner thigh pain Diagnoses Chest pain R07.9 Left leg pain M79.605 History of hypertension Z86.79 History of CAD (coronary artery disease) Z86.79
[2024-11-19] MEDS: ondansetron 2 mg/ML SDV 2 mL 4 MG IVP (15:17)
[2024-11-19] MEDS: oxyCODONE 10 mg ER (12 HR) Tablet PO (15:17)
[2024-11-19] MEDS: sodium chloride 0.9% 1,000 ML 75 ML IV (15:17)
[2024-11-19] MEDS: oxyCODONE 5 mg IR Tab/Cap 10 MG PO ×2 (19:15→23:11)
[2024-11-19] MEDS: heparin 5,000 unit/mL INJ 1 mL 5000 UNIT SUBCUT (21:03)
[2024-11-19] MEDS: pantoprazole 40 mg SDV IVP (21:04)
[2024-11-20] VITALS (8 sets, daily range): BP systolic 114–178; BP diastolic 54–71; PULSE 66–82; RESP 16–18; TEMP 36.4–36.8; O2SAT 89–92
[2024-11-20] MEDS: oxyCODONE 5 mg IR Tab/Cap 10 MG PO ×2 (04:45→08:49)
[2024-11-20] MEDS: sodium chloride 0.9% 1,000 ML 75 ML IV (04:46)
[2024-11-20] MEDS: heparin 5,000 unit/mL INJ 1 mL 5000 UNIT SUBCUT ×3 (05:22→22:32)
[2024-11-20] MEDS: levothyroxine 112 mcg Tablet PO (05:22)
[2024-11-20 05:33] LABS: Basophils % 0.6 %; Eosinophils # 0.3 10^3/uL (0.0-0.8); Eosinophils % 3.9 %; Hematocrit 33.6 % (36-47); Lymphocytes # 1.7 10^3/uL (0.8-4.8); Mean Corpuscular HGB Conc 30.4 g/dL (30-55); Mean Corpuscular Hemoglobin 30.5 pg (27-33); Mean Corpuscular Volume 100.6 fl (85-98); Mean Platelet Volume 10.2 fL (7.4-10.4); Monocytes # 0.6 10^3/uL (0.2-0.9); Monocytes % 9.1 %; Neutrophils # 4.12 10^3/uL (1.8-7.7); Neutrophils % 61.1 %; Nucleated Red Blood Cells % 0 %; Platelet Count 193 10^3/cmm (157-399); Red Blood Count 3.34 10^6/uL (3.85-5.65); Red Cell Distribution Width 15.1 % (12.1-15.1); White Blood Count 6.73 10^3/uL (3.29-11.43)
[2024-11-20] MEDS: HYDROmorphone 0.5 MG/0.5 ML INJ IVP (05:50)
[2024-11-20 05:58] LABS: Anion Gap 12.7 (5-19); Blood Urea Nitrogen 15 mg/dL (8-23); Calcium 8.7 mg/dL (8.5-10.5); Carbon Dioxide 25 mmol/L (22-29); Chloride 101 mmol/L (98-107); Glucose 133 mg/dL (65-115); Magnesium 1.8 mg/dL (1.7-2.3); Osmolality Calculated 283 mOsm/kg (285-295); Phosphorus 2.8 mg/dL (2.5-4.5); Potassium 3.7 mmol/L (3.5-5.1); Sodium 135 mmol/L (136-145)
[2024-11-20] MEDS: sertraline 100 mg Tablet 200 MG PO (08:49)
[2024-11-20] MEDS: aspirin 81 mg Chew Tablet 324 MG PO (08:49)
[2024-11-20] MEDS: carvedilol 3.125 mg Tablet PO ×2 (08:49→17:21)
--- NOTE | 2024-11-20 11:20 | CTR_ITS ---
PROCEDURE INFORMATION: Exam: CT Left Lower Extremity Without Contrast, Thigh Exam date and time: 11/20/2024 12:46 PM Age: 84 years old Clinical indication: Pain; Thigh; Left; Prior surgery; Surgery date: <1 month; Surgery type: Both hips and lt femur TECHNIQUE: Imaging protocol: CT of the left lower extremity without contrast was performed. Exam focused on the thigh. Radiation optimization: All CT scans at this facility use at least one of these dose optimization techniques: automated exposure control; mA and/or kV adjustment per patient size (includes targeted exams where dose is matched to clinical indication); or iterative reconstruction. COMPARISON: CT hip LT wo con* [id number] 08/04/2022 7:28 AM RADIATION DOSE METRICS: Total DLP (mGy-cm): 542.2 FINDINGS: Tubes, catheters and devices: Bones/joints: No acute fracture or dislocation .Prominent diffuse osteopenia. Redemonstrated old left greater trochanteric avulsion fracture. Labor Delivery Rn images redemonstrated bilateral DUNIA hardware, and intramedullary nail traversing the entire length of the left femoral shaft with cerclage wires (fixating an old healed femoral shaft fracture), and an articulating left TKA hardware construct. As best seen on sagittal and axial images, there is again a large circumferential gap between the femoral IM nail and the surrounding bone, extending along the proximal half of the femoral shaft, with endosteal scalloping and associated complete erosion through the posterior femoral cortex in these regions. Possible fluid density material surrounding the femoral IM nail, although this is difficult to accurately assess secondary to the large amount of beam hardening artifact generated by the hardware. Redemonstrated pronounced osteolysis about the left DUNIA acetabular cup redemonstrated. Differential diagnosis for this overall appearance includes aggressive granulomatous reaction/particle disease, versus less likely loosening related to chronic/indolent infectious process. Soft tissues: See Tubes, catheters and devices finding. 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
--- NOTE | 2024-11-20 11:20 | CTR_ITS ---
PROCEDURE INFORMATION: Exam: CT Pelvis Without Contrast, Skeleton Exam date and time: 11/20/2024 12:46 PM Age: 84 years old Clinical indication: Pelvic pain; Prior surgery; Surgery date: <1 month; Surgery type: Both hips lt femur; Additional info: Let pelvic pain TECHNIQUE: Imaging protocol: Computed tomography of the pelvis without contrast. Exam focused on the skeleton. Radiation optimization: All CT scans at this facility use at least one of these dose optimization techniques: automated exposure control; mA and/or kV adjustment per patient size (includes targeted exams where dose is matched to clinical indication); or iterative reconstruction. COMPARISON: CR XR hip BI m 5V wo/w pel* [id number] 10/26/2024 2:14 PM RADIATION DOSE METRICS: Total DLP (mGy-cm): 287.3 FINDINGS: Bones/joints: Bilateral sacral ala sacroplasty cement re-identified. Diffuse prominent osteopenia. Re-identified bilateral DUNIA hardware. Re-identified evidence of old ununited avulsion fracture of the bilateral [place] greater trochanters. Re-identified prominent periprosthetic osteolysis about the left acetabular cup and about the partially imaged left proximal femur, which may represent aggressive granulomatosis/particle disease. Can not exclude (less likely) indolent infectious process. This appearance is grossly unchanged compared to 08/04/2022 CT left lower extremity. Please see left lower extremity CT performed same day for details. Partially imaged up to severe lower lumbar spondylosis. Soft tissues: See Bones/joints finding. CT/CT pelvis wo con [id number] IMPRESSION: Periprosthetic osteolysis as above, grossly unchanged
[2024-11-20] MEDS: oxyCODONE 10 mg ER (12 HR) Tablet PO ×2 (12:02→22:31)
--- NOTE | 2024-11-20 15:05 | P.PN_ITS ---
Subjective 2 Subjective: Patient was seen this morning, currently complains of intractable left hip pain, left lower extremity pain, she tells me that the scheduled oxycodone helped, the Dilaudid is helping, but continues to have severe pain, no chest pain reported Vitals/I&O/Wt Last Vital Signs Temp 97.6 F 11/20/24 11:40 Pulse 82 11/20/24 11:40 Resp 18 11/20/24 11:40 BP 128/67 11/20/24 11:40 Pulse Ox 89 L 11/20/24 11:40 O2 Del Method Room Air 11/20/24 11:40 O2 Flow Rate 2 11/19/24 19:47 11/20/24 11/20/24 11/20/24 06:59 14:59 22:59 Intake Total 1000 / 2480 240 / 240 Output Total 500 / 500 500 / 500 Balance 500 / 1980 -260 / -260 Weight last 48 hrs Weight 66.224 kg Weight 64.093 kg Weight 62.142 kg Weight 62.142 kg Physical Exam 2 Const: COMMON NORMALS: no acute distress and patient oriented x3 Resp: COMMON NORMALS: normal respiratory effort, No retractions, No use of accessory muscles and clear to auscultation bilaterally AUSCULTATION: clear to auscultation bilaterally Cardio: COMMON NORMALS: regular rate, regular rhythm, S1 normal heart sound present and S2 normal heart sound present RATE: regular rate RHYTHM: r egular rhythm HEART SOUNDS: S1 normal heart sound present and S2 normal heart sound present GI: COMMON NORMALS: Normal to inspection, nondistended, normoactive bowel sounds present and non-tender Extremity: COMMON NORMALS: no pedal edema Neuro: COMMON NORMALS: patient oriented x3 Psych: COMMON NORMALS: mental status grossly normal Data 11/20/24 05:06 11/20/24 05:06 A&P Assessment and plan (1) Chest pain: (2) Left leg pain: (3) History of hypertension: (4) History of CAD (coronary artery disease): Plan Chest pain -EKG no acute ST-T wave changes, right bundle branch block -Serial EKGs, serial troponins, telemetry monitoring - Aspirin, statin, Coreg - Cardiac echo -Cardiac stress test ordered - If stress test cannot be performed today, depending on symptomatology might have to be here till Friday versus outpatient testing Left leg pain, will order venous ultrasound, negative for dvt Left inner thigh pain - History of left total hip replacement, with healed fracture of left femur with intramedullary vika and encircling cables - Large circumferential gap between femoral IM nail and the surrounding bone, extending along the proximal half of the femoral shaft with Endo still scalloping associate with complete erosion through the past year femoral cortex, possible fluid density material surrounding the femoral IM nail -Also found to have old ununited avulsion fracture of the bilateral meditative greater trochanters -Concern for loosening - She has been referred to [facility] for consideration of surgical invention - At baseline she does not ambulate, she typically transfers on her own, but is in a motorized wheelchair - He has intractable pain, pain control as inpatient CT pelvis Bones/joints: Bilateral sacral ala sacroplasty cement re-identified. Diffuse prominent osteopenia. Re-identified bilateral DUNIA hardware. Re-identified evidence of old ununited avulsion fracture of the bilateral [place] greater trochanters. Re-identified prominent periprosthetic osteolysis about the left acetabular cup and about the partially imaged left proximal femur, which may represent aggressive granulomatosis/particle disease. Can not exclude (less likely) indolent infectious process. This appearance is grossly unchanged compared to 08/04/2022 CT left lower extremity. Please see left lower extremity CT performed same day for details. Partially imaged up to severe lower lumbar spondylosis. Soft tissues: See Bones/joints finding. CT femur Bones/joints: No acute fracture or dislocation .Prominent diffuse osteopenia. Redemonstrated old left greater trochanteric avulsion fracture. [employer] images redemonstrated bilateral DUNIA hardware, and intramedullary nail traversing the entire length of the left femoral shaft with cerclage wires (fixating an old healed femoral shaft fracture), and an articulating left TKA hardware construct. As best seen on sagittal and axial images, there is again a large circumferential gap between the femoral IM nail and the surrounding bone, extending along the proximal half of the femoral shaft, with endosteal scalloping and associated complete erosion through the posterior femoral cortex in these regions. Possible fluid density material surrounding the femoral IM nail, although this is difficult to accurately assess secondary to the large amount of beam hardening artifact generated by the hardware. Redemonstrated pronounced osteolysis about the left DUNIA acetabular cup redemonstrated. Differential diagnosis for this overall appearance includes aggressive granulomatous reaction/particle disease, versus less likely loosening related to chronic/indolent infectious process. Soft tissues: See Tubes, catheters and devices finding. Vasculature: Atheromatous calcifications - Continues to have intractable pain - Oxycodone 10 mg p.o. every 12 hours, with oxycodone 10 every 4 hours as needed for breakthrough pain, Dilaudid 0.5 mg IV push every 12 hours for breakthrough pain Compression fracture of L4 - Will consider a bone scan as inpatient based on clinical progress PDMP PDMP Reviewed: Last Reviewed 11/19/24 10:19 by Papa Beal MD Attestations 2 Medical Necessity Statement*: Patient requires hospitalization for intractable left inner thigh pain, intractable pain, chest pain Diagnoses Chest pain R07.9 Left leg pain M79.605 History of hypertension Z86.79 History of CAD (coronary artery disease) Z86.79
[2024-11-20 15:47] LABS: Erythrocyte Sedimentation Rate 24 mm/hr (0-15)
--- NOTE | 2024-11-20 16:58 | PM.CONSULT ---
Providers/Reason For Consult Consulting Physician/Specialty*: Valdemar Guerrero MD Orthopedic surgery Reason for Consult*: Painful left thigh/hip. History of multiple surgeries for reconstruction Attending Physician: Papa Beal MD Primary Care Provider: JOSAFAT Ojeda History of Present Illness History of Present Illness Taylor Beaver is a 84 year old female who has had bilateral total hip arthroplasties. She has had multiple complications on the left side and sad by her report 6 surgeries on the side. Now she is presenting with debilitating left leg and hip pain. She saw Dr. Horn within the last month who evaluated this and felt that there was some lucencies about her prosthetics on the left side and she may need to have this revised. He recommended transferring her up to [facility] in [place] for further evaluation and treatment. Patient is stating that she wishes to go to someplace closer however I have indicated I do not believe that there is any reconstruction orthopedic surgeons around that would do this other than in a larger city. I have explained to her why we would not do that procedure down here. Presently she states her pain is under control but she is on pain medication here in the hospital. She states she just has pain and points that left knee inner aspect upper thigh to about mid thigh centrally and then can extend on up into the groin region. Patient indicates that she has been having fevers and chills Review of Systems Narrative: System review of 110 organ review with significant for cardiovascular system and gastrointestinal system for chest pain and nausea and vomiting. Medications/Allergies Home Medications ?Medication ?Instructions ?Recorded ?Confirmed ?Last Taken ?Type pantoprazole 40 mg tablet,delayed 40 mg PO QAM 04/30/22 11/18/24 08/24/24 History release levothyroxine 112 mcg tablet 112 mcg PO QAM 08/04/22 11/18/24 08/24/24 History sertraline 100 mg tablet 200 mg PO DAILY 07/15/23 11/18/24 08/24/24 History trazodone 50 mg tablet 50 mg PO BEDTIME PRN Sleep 07/15/23 11/18/24 11/13/23 History cockup splint #1 ea 07/30/23 11/19/24 Unknown Rx gabapentin 100 mg capsule 100 mg PO TID PRN Pain 11/18/24 11/18/24 Unknown History ondansetron 4 mg disintegrating 4 mg PO Q6H PRN Nausea And Vomiting 11/18/24 11/18/24 Unknown History tablet aspirin 81 mg tablet 81 mg PO DAILY 30 days #30 tabs 11/19/24 Unknown Rx atorvastatin 40 mg tablet (Lipitor) 40 mg PO DAILY 30 days #30 tabs 11/19/24 Unknown Rx carvedilol 3.125 mg tablet 3.125 mg PO BID 30 days #60 tabs 11/19/24 Unknown Rx nitroglycerin 0.4 mg sublingual 0.4 mg sublingual Q5M PRN Chest 11/19/24 Unknown Rx tablet Pain 30 days #30 tabs tramadol 50 mg tablet 50 mg PO Q8H PRN Pain 11/19/24 11/19/24 Unknown History Allergies Allergy/AdvReac Type Severity Reaction Status Date / Time No Known Allergies Allergy Verified 01/06/24 14:09 Current Medications Generic Name Dose Route Start Last Admin Trade Name Freq PRN Reason Stop Dose Admin Aspirin 324 mg 11/19/24 09:00 11/20/24 08:49 Aspirin 81 Mg Chew Tablet PO 324 mg DAILY IDA Administration Carvedilol 3.125 mg 11/19/24 09:00 11/20/24 08:49 Carvedilol 3.125 Mg Tablet PO 3.125 mg BID IDA Administration Heparin Sodium (Porcine) 5,000 unit 11/18/24 22:00 11/20/24 15:16 Heparin 5,000 Unit/Ml Inj 1 Ml SUBCUT 5,000 unit Q8H IDA Administration Hydromorphone HCl 0.5 mg 11/19/24 14:52 11/20/24 05:50 Hydromorphone 0.5 Mg/0.5 Ml Inj IVP 0.5 mg Q12H PRN Administration severe breakthrough Pain Levothyroxine Sodium 112 mcg 11/20/24 06:00 11/20/24 05:22 Levothyroxine 112 Mcg Tablet PO 112 mcg QAM IDA Administration Ondansetron HCl 4 mg 11/18/24 21:32 11/19/24 15:17 Ondansetron 2 Mg/Ml Sdv 2 Ml IVP 4 mg Q8H PRN Administration vomiting, or N/V if npo Oxycodone HCl 10 mg 11/19/24 14:51 11/20/24 08:49 Oxycodone 5 Mg Ir Tab/Cap PO 10 mg Q4H PRN Administration SEVERE PAIN Oxycodone HCl 10 mg 11/20/24 11:00 11/20/24 12:02 Oxycodone 10 Mg Er (12 Hr) Tablet PO 10 mg BID@11,23 IDA Administration Pantoprazole Sodium 40 mg 11/18/24 21:32 11/19/24 21:04 Pantoprazole 40 Mg Sdv IVP 40 mg Q24H IDA Administration Sertraline HCl 200 mg 11/19/24 09:00 11/20/24 08:49 Sertraline 100 Mg Tablet PO 200 mg DAILY IDA Administration PFSH Acute PFSH: Medical History History of CAD (coronary artery disease) History of nephrolithiasis History of hypothyroidism History of hyperlipidemia History of depression History of hypertension History of type 2 diabetes mellitus Lumbar stenosis with neurogenic claudication Surgical History Post-operative state History of heart artery stent History of back surgery History of left hip replacement Family History Mother CAD (coronary artery disease) Social History Smoking and tobacco/nicotine status: never used tobacco/nicotine Alcohol intake: never Substance/Drug Use: never Vitals/I&O/Wt Last Vital Signs Temp 98.3 F 11/20/24 15:48 Pulse 68 11/20/24 15:48 Resp 18 11/20/24 15:48 BP 148/69 11/20/24 15:48 Pulse Ox 92 11/20/24 15:48 O2 Del Method Nasal Cannula 11/20/24 15:48 O2 Flow Rate 2 11/19/24 19:47 11/20/24 11/20/24 11/20/24 06:59 14:59 22:59 Intake Total 1000 / 2480 240 / 240 Output Total 500 / 500 500 / 500 Balance 500 / 1980 -260 / -260 Weight last 48 hrs Weight 146 lb Weight 141 lb 4.8 oz Weight 137 lb Weight 137 lb Physical Exam Narrative: On exam today, as she stated before she is seems to be pain-free secondary to medication. She has minimal to no tenderness along the course of the thigh all the way from the knee up to the groin. Some gentle manipulation does not seem to be causing any pain or discomfort at this point. She appears to be neurovascular intact. There is no swelling, there is no erythema, there is no induration, and all surgical wounds appear to be healed well. I do not note anything else at this time. Data 11/20/24 05:06 11/20/24 05:06 Other data: I have reviewed the CT scan which demonstrates reabsorption of bone around the femoral vika. There is also areas that appear that there may be small fracture lines through the cortical bone. However I do not see any bony destruction as you would see with an infection but I see sclerotic edges of the intramedullary canal indicating a long slow process. Radiology report indicates that appears to be loosening in both the acetabulum and the femoral component. A&P Assessment and plan (1) Left leg pain: Patient has painful left leg with retained hardware, total joint reconstruction of the knee and of the hip with length the hip prosthesis all the way down to the distal femur. Now with bone loss and pain Plan Plan at this time is I will go ahead and follow the previous recommendations that the patient be seen at [facility] up in [place]. Patient needs a reconstructive specialist. I do have concerns that there could be an infection in this with the bone reabsorption though it does not appear that way but must be considered. Her sedimentation rate is elevated but the white blood cell count is normal. There is no CRP. Dr. Horn had mentioned or was planning on obtaining a bone scan to see if there is any hotspots in this left femur which could indicate fracture versus infection there. This is a consideration at this time. I would continue on with protected weightbearing on the side and encouraged the patient to be seen up in [place] at one of the larger hospitals with reconstructive orthopedists PDMP PDMP Reviewed: Not Reviewed Consult Attestations Medical Necessity Statement: Patient in need of pain control, may need physical therapy for partial weightbearing walker ambulation Coding Level of Care Code Critical Care >/= 30 minutes Diagnoses Left leg pain M79.605
[2024-11-20] MEDS: pantoprazole 40 mg SDV IVP (20:56)
[2024-11-20] MEDS: ondansetron 2 mg/ML SDV 2 mL 4 MG IVP (20:56)
[2024-11-21] VITALS (12 sets, daily range): BP systolic 128–185; BP diastolic 60–96; PULSE 65–77; RESP 16–19; TEMP 36.5–37.6; O2SAT 90–93
[2024-11-21] MEDS: oxyCODONE 5 mg IR Tab/Cap 10 MG PO ×3 (01:04→18:10)
[2024-11-21 04:33] LABS: Basophils % 0.4 %; Eosinophils # 0.3 10^3/uL (0.0-0.8); Eosinophils % 4.7 %; Hematocrit 34.5 % (36-47); Lymphocytes # 1.5 10^3/uL (0.8-4.8); Lymphocytes % 28.4 %; Mean Corpuscular HGB Conc 30.7 g/dL (30-55); Mean Corpuscular Hemoglobin 30.8 pg (27-33); Mean Corpuscular Volume 100.3 fl (85-98); Mean Platelet Volume 11.5 fL (7.4-10.4); Monocytes # 0.5 10^3/uL (0.2-0.9); Neutrophils # 3.06 10^3/uL (1.8-7.7); Neutrophils % 56.9 %; Nucleated Red Blood Cells % 0 %; Platelet Count 172 10^3/cmm (157-399); Red Blood Count 3.44 10^6/uL (3.85-5.65); White Blood Count 5.36 10^3/uL (3.29-11.43)
[2024-11-21 05:03] LABS: Magnesium 1.8 mg/dL (1.7-2.3); Phosphorus 2.6 mg/dL (2.5-4.5)
[2024-11-21 05:04] LABS: Anion Gap 13.9 (5-19); Blood Urea Nitrogen 8 mg/dL (8-23); Calcium 8.8 mg/dL (8.5-10.5); Carbon Dioxide 28 mmol/L (22-29); Chloride 104 mmol/L (98-107); Glucose 109 mg/dL (65-115); Osmolality Calculated 293 mOsm/kg (285-295); Potassium 3.9 mmol/L (3.5-5.1); Sodium 142 mmol/L (136-145)
[2024-11-21] MEDS: heparin 5,000 unit/mL INJ 1 mL 5000 UNIT SUBCUT ×3 (05:09→21:28)
[2024-11-21] MEDS: levothyroxine 112 mcg Tablet PO (05:09)
[2024-11-21 08:34] LABS: Add Urine Microscopic? NO
[2024-11-21 09:02] LABS: Bilirubin Urine Negative (Negative); Blood Urine Negative (Negative); Glucose Urine UA Negative (Normal); Ketones Urine Negative (Negative); Leukocyte Esterase Urine Negative (Negative); Nitrate Urine Negative (Negative); Protein Urine Negative (Negative); Specific Gravity, Urine 1.013 (1.005-1.030); Urine Appearance Clear (CLEAR); Urine Color Yellow (Yellow)
[2024-11-21 09:05] LABS: Charge for UA Resulting for Rev
[2024-11-21 10:01] LABS: Erythrocyte Sedimentation Rate 36 mm/hr (0-15)
[2024-11-21] MEDS: sertraline 100 mg Tablet 200 MG PO (10:25)
[2024-11-21] MEDS: aspirin 81 mg Chew Tablet 324 MG PO (10:25)
[2024-11-21] MEDS: carvedilol 3.125 mg Tablet PO ×2 (10:25→18:10)
[2024-11-21] MEDS: oxyCODONE 10 mg ER (12 HR) Tablet PO ×2 (11:25→22:22)
--- NOTE | 2024-11-21 14:58 | P.PN_ITS ---
Subjective 2 Subjective: Patient was seen this morning, she denies any fevers, no chills, no cough, her left leg pain is improving, she does have left medial thigh pain that is persisting, she tells me that the scheduled oxycodone 10 twice daily has significantly helped control the pain throughout the day and she uses the oxycodone as needed, we discussed overall plan to follow-up with [facility] but she is not exactly sure if she wants surgical invention, she was concern for possible infection, which was mentioned by the orthopedic physician, discussed that she has been afebrile her leukocytosis is within normal limits, sed rate is elevated, CRP, Pro-Tom within normal limits, she discussed that Dr. Tapia and Dr. Guerrero did mention a bone scan, as she continues to have pain, could her pain be from an infection? We discussed doing a bone scan as inpatient, plan on doing a bone scan tomorrow morning, left lower extremity Vitals/I&O/Wt Last Vital Signs Temp 97.9 F 11/21/24 11:34 Pulse 72 11/21/24 11:34 Resp 16 11/21/24 12:03 BP 128/69 11/21/24 11:34 Pulse Ox 90 11/21/24 11:34 O2 Del Method Nasal Cannula 11/21/24 11:34 O2 Flow Rate 2 11/19/24 19:47 11/20/24 11/21/24 11/21/24 22:59 06:59 14:59 Intake Total 1000 / 1240 Output Total 100 / 100 Balance 1000 / 740 -100 / -100 Weight last 48 hrs Weight 66.179 kg Weight 66.224 kg Physical Exam 2 Const: COMMON NORMALS: no acute distress and patient oriented x3 HENMT: COMMON NORMALS: normocephalic HEAD & SCALP: normocephalic Resp: COMMON NORMALS: normal respiratory effort, No retractions, No use of accessory muscles and clear to auscultation bilaterally AUSCULTATION: clear to auscultation bilaterally Cardio: COMMON NORMALS: regular rate, regular rhythm, S1 normal heart sound present and S2 normal heart sound present RATE: regular rate RHYTHM: r egular rhythm HEART SOUNDS: S1 normal heart sound present and S2 normal heart sound present GI: COMMON NORMALS: Normal to inspection, nondistended, normoactive bowel sounds present and Soft to palpation PALPATION: Yes Soft to palpation Extremity: COMMON NORMALS: capillary refill normal, no calf tenderness and no pedal edema NARRATIVE EXTREMITY EXAM: tenderness along left inner medial thigh Neuro: COMMON NORMALS: patient oriented x3 Psych: COMMON NORMALS: mental status grossly normal Data 11/21/24 03:15 11/21/24 03:15 A&P Assessment and plan (1) Chest pain: (2) Left leg pain: (3) History of hypertension: (4) History of CAD (coronary artery disease): Plan Chest pain -EKG no acute ST-T wave changes, right bundle branch block, flat troponin trend 6-hour troponin 18.6 -Serial EKGs, serial troponins, telemetry monitoring - Aspirin, statin, Coreg - Cardiac echo pending -Cardiac stress test has been canceled as she really does not complain of any more chest pain, will cancel stress test can follow-up with cardiology as outpatient Left leg pain, will order venous ultrasound, negative for dvt Left inner thigh pain - History of left total hip replacement, with healed fracture of left femur with intramedullary vika and encircling cables - Large circumferential gap between femoral IM nail and the surrounding bone, extending along the proximal half of the femoral shaft with Endo still scalloping associate with complete erosion through the past year femoral cortex, possible fluid density material surrounding the femoral IM nail -Also found to have old ununited avulsion fracture of the bilateral meditative greater trochanters -Concern for loosening - She has been referred to [facility] for consideration of surgical invention - At baseline she does not ambulate, she typically transfers on her own, but is in a motorized wheelchair - He has intractable pain, pain control as inpatient CT pelvis Bones/joints: Bilateral sacral ala sacroplasty cement re-identified. Diffuse prominent osteopenia. Re-identified bilateral DUNIA hardware. Re-identified evidence of old ununited avulsion fracture of the bilateral [place] greater trochanters. Re-identified prominent periprosthetic osteolysis about the left acetabular cup and about the partially imaged left proximal femur, which may represent aggressive granulomatosis/particle disease. Can not exclude (less likely) indolent infectious process. This appearance is grossly unchanged compared to 08/04/2022 CT left lower extremity. Please see left lower extremity CT performed same day for details. Partially imaged up to severe lower lumbar spondylosis. Soft tissues: See Bones/joints finding. CT femur Bones/joints: No acute fracture or dislocation .Prominent diffuse osteopenia. Redemonstrated old left greater trochanteric avulsion fracture. [employer] images redemonstrated bilateral DUNIA hardware, and intramedullary nail traversing the entire length of the left femoral shaft with cerclage wires (fixating an old healed femoral shaft fracture), and an articulating left TKA hardware construct. As best seen on sagittal and axial images, there is again a large circumferential gap between the femoral IM nail and the surrounding bone, extending along the proximal half of the femoral shaft, with endosteal scalloping and associated complete erosion through the posterior femoral cortex in these regions. Possible fluid density material surrounding the femoral IM nail, although this is difficult to accurately assess secondary to the large amount of beam hardening artifact generated by the hardware. Redemonstrated pronounced osteolysis about the left DUNIA acetabular cup redemonstrated. Differential diagnosis for this overall appearance includes aggressive granulomatous reaction/particle disease, versus less likely loosening related to chronic/indolent infectious process. Soft tissues: See Tubes, catheters and devices finding. Vasculature: Atheromatous calcifications - Continues to have intractable pain - Oxycodone 10 mg p.o. every 12 hours, with oxycodone 10 every 4 hours as needed for breakthrough pain, Dilaudid 0.5 mg IV push every 12 hours for breakthrough pain - Due to persistent pain, CRP 4, sed rate 36, Pro-Tom 0.1 concerns for possible infection, will order bone scan Compression fracture of L4 - Pain control PDMP PDMP Reviewed: Last Reviewed 11/19/24 10:19 by Papa Beal MD Attestations 2 Medical Necessity Statement*: Patient requires hospitalization for left inner thigh pain, concerns for infection, proceeding with bone scan Diagnoses Chest pain R07.9 Left leg pain M79.605 History of hypertension Z86.79 History of CAD (coronary artery disease) Z86.79
[2024-11-21] MEDS: pantoprazole DR 40 mg Tablet PO (21:28)
[2024-11-21] MEDS: lisinopril 20 mg Tablet PO (21:28)
[2024-11-21] MEDS: ondansetron 4 MG Tablet PO (23:49)
--- NOTE | 2024-11-21 23:52 | ECG_ITS ---
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 Measurements Intervals [place] Rate: 73 P: 82 MA: 140 QRS: 30 QRSD: 138 T: 64 QT: 435 QTc: 482 Interpretive Statements SINUS RHYTHM RIGHT BUNDLE BRANCH BLOCK [120+ ms QRS DURATION, UPRIGHT V1, 40+ ms S IN I/aVL/V4/V5/V6] Compared to ECG 11/19/2024 00:07:33 No significant changes Electronically Signed On 11-22-2024 08:52:36 CDT by Agusto Mills M.D. [email or web address]
[2024-11-22 04:00] VITALS: BP 154/68; PULSE 71; RESP 15; TEMP 36.7; O2SAT 90
[2024-11-22 04:57] LABS: Blood Urea Nitrogen 6 mg/dL (8-23); Calcium 8.9 mg/dL (8.5-10.5); Carbon Dioxide 27 mmol/L (22-29); Chloride 101 mmol/L (98-107); Creatinine Clr Calc Pharmacy 48.0442; Glucose 102 mg/dL (65-115); Osmolality Calculated 288 mOsm/kg (285-295); Sodium 140 mmol/L (136-145)
[2024-11-22 05:05] LABS: Anion Gap 16.3 (5-19); Potassium 4.3 mmol/L (3.5-5.1)
[2024-11-22] MEDS: levothyroxine 112 mcg Tablet PO (05:05)
[2024-11-22] MEDS: heparin 5,000 unit/mL INJ 1 mL 5000 UNIT SUBCUT ×3 (05:05→21:22)
[2024-11-22 07:33] VITALS: BP 162/73; PULSE 73; RESP 16; TEMP 36.4; O2SAT 96
[2024-11-22] MEDS: ondansetron 2 mg/ML SDV 2 mL 4 MG IVP (08:04)
[2024-11-22] MEDS: sertraline 100 mg Tablet 200 MG PO (08:05)
[2024-11-22] MEDS: aspirin 81 mg Chew Tablet 324 MG PO (08:05)
[2024-11-22] MEDS: lisinopril 20 mg Tablet PO (08:05)
[2024-11-22] MEDS: pantoprazole DR 40 mg Tablet PO (08:05)
[2024-11-22] MEDS: carvedilol 3.125 mg Tablet PO ×2 (08:05→17:17)
[2024-11-22 11:17] VITALS: BP 113/57; PULSE 79; RESP 16; TEMP 36.8; O2SAT 95
--- NOTE | 2024-11-22 12:01 | PC.SOCIAL ---
IMM UPDATED IMM dated and initialed copy placed in chart and copy given to patient.
[2024-11-22] MEDS: oxyCODONE 10 mg ER (12 HR) Tablet PO ×2 (12:11→20:05)
--- NOTE | 2024-11-22 13:25 | XRR_ITS ---
PROCEDURE INFORMATION: Exam: XR Left Knee Exam date and time: 11/22/2024 1:32 PM Age: 84 years old Clinical indication: Pain; Knee; Left; Prior surgery; Surgery date: 1-6 months; Surgery type: Lt upper leg; Additional info: L knee pain TECHNIQUE: Imaging protocol: Radiologic exam of the left knee. Views: 1 or 2 views. COMPARISON: CR XR knee LT 3V* [id number] 04/27/2023 9:49 AM FINDINGS: Bones/joints: Redemonstrated left DUNIA hardware fracture with intramedullary nail traversing the entire length of visualized left femoral shaft with partially visualized cerclage wires. Diffuse osteopenia. No acute displaced fracture or dislocation. Erosive changes are visualized through the posterior femoral cortex and osteolysis about the left DUNIA acetabular cup. Soft tissues: Within normal limits. Vasculature: Vascular calcifications. XR/XR knee LT 1-2V [id number] IMPRESSION: No acute displaced fracture or dislocation. Redemonstrated periprosthetic left DUNIA osteolysis.
--- NOTE | 2024-11-22 14:54 | NM_ITS ---
WS: [id number] THREE-PHASE BONE SCAN HISTORY: LEFT LEG/pelvis only bone scan for infection COMPARISON: 08/06/2022, femur CT 11/20/2024 Patient is is injected with 26.1 mCi Tc99m HDP intravenously. Immediate angiographic phase imaging is performed over the area of concern. Static blood pool imaging also performed. Two-hour whole-body scintigrams performed in anterior and posterior projections. Additional large field of view imaging sub mitted as necessary. Normal soft tissue and arterial uptake centered over the pelvis during arterial and blood pool phase imaging. Intermediate uptake involving a single focus of the mid to distal LEFT femoral diaphysis. The single uptake is along the lateral femoral cortex and may be associated with the most distal horizontal screw. Otherwise photopenic changes centrally in the LEFT femur from the orthopedic vika. Very minimal uptake in the central LEFT femur. Mild AC joint and glenohumeral joint arthritis. Increased uptake within what is probably L4 and T10 from osteoporotic fractures. Intermediate uptake in the ankles and feet. Prior vertebroplasty at T12. NM/NM bone 3 phase [id number] IMPRESSION: 1. Single focus of uptake along the lateral LEFT femur. May be associated with the most inferior orthopedic screw. May be related to remodeling or retraction . No evidence for osteomyelitis or cellulitis. 2. Suspect mild loosening of the LEFT femur ORIF. Similar findings as compared to 08/06/2022. 3. 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
[2024-11-22 16:00] VITALS: BP 96/53; PULSE 67; RESP 15; TEMP 36.4; O2SAT 97
--- NOTE | 2024-11-22 17:04 | PM.PN ---
Subjective Subjective: Patient was admitted for chest pain with cardiology consult. Workup was negative. Echocardiogram showed EF of 55-60. No regional wall motion abnormalities. Grade 1 diastolic dysfunction In the meantime she describes the severe left inner thigh pain. Workup showed loose hardware in the left hip today she complained of left knee pain that was not x-rayed and we are awaiting these results she has been placed on long-acting opioid therapy for the control of this pain and she could be referred as an outpatient to [facility] Vitals/I&O/Wt Last Vital Signs Temp 97.6 F 11/22/24 16:00 Pulse 67 11/22/24 16:00 Resp 15 11/22/24 16:00 BP 96/53 11/22/24 16:00 Pulse Ox 97 11/22/24 16:00 O2 Del Method Room Air 11/22/24 16:00 O2 Flow Rate 2 11/19/24 19:47 11/22/24 11/22/24 11/22/24 06:59 14:59 22:59 Intake Total 300 / 300 Balance 300 / 300 Weight last 48 hrs Weight 65.227 kg Weight 66.179 kg Physical Exam Narrative: Alert and oriented. Says some odd remarks but I do not think she is confused Heart regular normal S1-S2 without murmurs clicks gallops or rubs lungs clear to auscultation without wheezes rales or rhonchi abdomen soft nontender nondistended positive bowel sounds no hepatosplenomegaly extremities no clubbing cyanosis or edema Data 11/21/24 03:15 11/22/24 04:08 A&P Assessment and plan (1) Chest pain: Resolved workup negative Echo results in interval history (2) Left leg pain: Likely due to a hardware problem in the left hip replacement (3) History of hypertension: (4) History of CAD (coronary artery disease): Plan I have been awaiting radiology read of the left knee all afternoon. I called radiology and had to go down there. They brought me to the radiologist room and none were available. I have just been notified that it will be read soon. Otherwise the plan is to discharge home with outpatient follow-up to [facility] to assess for knee replacement status post prior replacement. She will remain on chronic opioid for this pain control PDMP PDMP Reviewed: Not Reviewed Attestations Medical Necessity Statement*: Awaiting knee x-ray to determine discharge planning Coding Level of Care Code Acute Code for Chg Fwd Diagnoses Chest pain R07.9 Left leg pain M79.605 History of hypertension Z86.79 History of CAD (coronary artery disease) Z86.79
[2024-11-22 20:00] VITALS: BP 118/55; PULSE 67; RESP 17; TEMP 36.6; O2SAT 92
[2024-11-23] VITALS (8 sets, daily range): BP systolic 104–151; BP diastolic 59–75; PULSE 64–73; RESP 15–18; TEMP 36.4–36.9; O2SAT 90–93
[2024-11-23] MEDS: oxyCODONE 5 mg IR Tab/Cap PO (00:52)
[2024-11-23] MEDS: levothyroxine 112 mcg Tablet PO (05:20)
[2024-11-23] MEDS: heparin 5,000 unit/mL INJ 1 mL 5000 UNIT SUBCUT (05:20)
[2024-11-23] MEDS: oxyCODONE 10 mg ER (12 HR) Tablet PO (07:11)
[2024-11-23] MEDS: oxyCODONE 5 mg IR Tab/Cap 10 MG PO (08:18)
[2024-11-23] MEDS: sertraline 100 mg Tablet 200 MG PO (08:19)
[2024-11-23] MEDS: carvedilol 3.125 mg Tablet PO (08:19)
[2024-11-23] MEDS: aspirin 81 mg Chew Tablet 324 MG PO (08:19)
[2024-11-23] MEDS: pantoprazole DR 40 mg Tablet PO (08:19)
[2024-11-23] MEDS: lisinopril 20 mg Tablet PO (08:20)
--- NOTE | 2024-11-23 12:02 | PM.DCS ---
Discharge Providers Date of Admission: 11/18/24 21:32 Date of Discharge: November 23, 2024 Attending Provider at Admission: Rupal Smith MD Attending Provider at Discharge: Sandro Clark DO Consults: Orthopedic Primary Care Provider: JOSAFAT Ojeda Diagnoses at Discharge Discharge Diagnosis (1) Chest pain: Status: Resolved (2) Left leg pain: Status: Acute (3) History of hypertension: Status: Acute (4) History of CAD (coronary artery disease): Status: Acute Reason for Visit Reason for Visit: chest pain, nausea Brief History: Patient was admitted for chest pain with cardiology consult. Hospital Course Hospital Course Cardiac workup was negative. Echocardiogram showed EF of 55-60. No regional wall motion abnormalities. Grade 1 diastolic dysfunction In the meantime she describes the severe left inner thigh pain. Workup showed loose hardware in the left hip and it is recommended did that she go to a reconstructive specialist for a second left hip replacement at [facility]. She is agreeable to that plan. Yesterday her knee was x-rayed and the knee showed no abnormalities thus the knee pain is probably referred from the left hip. . During this hospitalization she has been placed on long-acting opioid therapy for the control of the knee and hip pain. Patient uses a motorized wheelchair at home. She does have fellow apartment mate that will be picking her up and helping her get the motorized wheelchair to the car. She will have an appointment with [facility] for hip replacement Physical Exam Narrative: Alert and oriented. Says some odd remarks but I do not think she is confused Heart regular normal S1-S2 without murmurs clicks gallops or rubs lungs clear to auscultation without wheezes rales or rhonchi abdomen soft nontender nondistended positive bowel sounds no hepatosplenomegaly extremities no clubbing cyanosis or edema Discharge Data Studies Completed and Pending Completed Studies During Hospitalization Category Date Time Status CT femur LT wo con* [id number] Routine Cat Scan 11/20/24 11:[address] pelvis wo con [id number] Routine Cat Scan 11/20/24 11:20 Completed XR chest 1V portable [id number] Stat Exams 11/18/24 18:17 Completed XR knee LT 1-2V [id number] Routine Exams 11/22/24 13:25 Completed NM bone 3 phase [id number] Routine Nuc Med 11/22/24 14:54 [place] [id number] Routine Ultrasound 11/19/24 13:44 Completed CV. echo complete* [id number] Routine Ultrasound 11/18/24 21:32 Completed Pending at discharge Category Date Time Status Sestamibi Stress Test Request Routine Exams 11/19/24 10:17 Stop Req Sestamibi Stress Test Request Routine Exams 11/20/24 06:00 Stop Req NM chantal perf SPECT r/s* [id number] Routine Nuc Med 11/19/24 07:57 Taken Radiology Impressions Chest X-Ray 11/18/24 18:17 IMPRESSION: No acute cardiopulmonary abnormality. Femur CT 11/20/24 11:20 IMPRESSION: Overall, very similar appearance of periprosthetic osteolysis as detailed above Pelvis CT 11/20/24 11:20 IMPRESSION: Periprosthetic osteolysis as above, grossly unchanged Knee X-Ray 11/22/24 13:25 IMPRESSION: No acute displaced fracture or dislocation. Redemonstrated periprosthetic left DUNIA osteolysis. Bone Scan Nuclear Medicine 11/22/24 14:54 IMPRESSION: 1. Single focus of uptake along the lateral LEFT femur. May be associated with the most inferior orthopedic screw. May be related to remodeling or retraction. No evidence for osteomyelitis or cellulitis. 2. Suspect mild loosening of the LEFT femur ORIF. Similar findings as compared to 08/06/2022. 3. 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 Laboratory Results WBC 5.36 10^3/uL (3.29-11.43) 11/21/24 03:15 RBC 3.44 10^6/uL (3.85-5.65) L 11/21/24 03:15 Hgb 10.60 g/dL (11.27-16.99) L 11/21/24 03:15 Hct 34.5 % (36-47) L 11/21/24 03:15 MCV 100.3 fl (85-98) H 11/21/24 03:15 MCH 30.8 pg (27-33) 11/21/24 03:15 MCHC 30.7 g/dL (30-55) 11/21/24 03:15 RDW 15.0 % (12.1-15.1) 11/21/24 03:15 Plt Count 172 10^3/cmm (157-399) 11/21/24 03:15 MPV 11.5 fL (7.4-10.4) H 11/21/24 03:15 Neut % (Auto) 56.9 % 11/21/24 03:15 Lymph % (Auto) 28.4 % 11/21/24 03:15 [place] % (Auto) 9.0 % 11/21/24 03:15 Eos % (Auto) 4.7 % 11/21/24 03:15 Baso % (Auto) 0.4 % 11/21/24 03:15 Neut # (Auto) 3.06 10^3/uL (1.8-7.7) 11/21/24 03:15 Lymph # (Auto) 1.5 10^3/uL (0.8-4.8) 11/21/24 03:15 [place] # (Auto) 0.5 10^3/uL (0.2-0.9) 11/21/24 03:15 Eos # (Auto) 0.3 10^3/uL (0.0-0.8) 11/21/24 03:15 Baso # (Auto) 0.0 10^3/uL (0.0-0.1) 11/21/24 03:15 Nucleated RBC % (auto) 0 % 11/21/24 03:15 Nucleated RBCs # 0.0 /100WBC 11/21/24 03:15 ESR 36 mm/hr (0-15) H 11/21/24 03:15 Sodium 140 mmol/L (136-145) 11/22/24 04:08 Potassium 4.3 mmol/L (3.5-5.1) 11/22/24 04:08 Chloride 101 mmol/L (98-107) 11/22/24 04:08 Carbon Dioxide 27 mmol/L (22-29) 11/22/24 04:08 Anion Gap 16.3 (5-19) 11/22/24 04:08 BUN 6 mg/dL (8-23) L 11/22/24 04:08 Creatinine 0.5 mg/dL (0.5-0.9) 11/22/24 04:08 GFR Calculation Not Reportable 11/22/24 04:08 Glucose 102 mg/dL (65-115) 11/22/24 04:08 Calculated Osmolality 288 mOsm/kg (285-295) 11/22/24 04:08 Calcium 8.9 mg/dL (8.5-10.5) 11/22/24 04:08 Phosphorus 2.6 mg/dL (2.5-4.5) 11/21/24 03:15 Magnesium 1.8 mg/dL (1.7-2.3) 11/21/24 03:15 Total Bilirubin 0.5 mg/dL (0.15-1.2) 11/19/24 05:12 AST 16 U/L (0-32) 11/19/24 05:12 ALT 7 U/L (0-33) 11/19/24 05:12 Alkaline Phosphatase 85 U/L (35-105) 11/19/24 05:12 Troponin T Baseline 13 ng/L (0-10) H 11/18/24 18:20 Troponin T 120 Minute 15.30 ng/L (0-10) H 11/18/24 19:57 Delta Troponin T 2.30 ABS# (0-10) 11/18/24 19:57 Troponin T Hi Sens 6Hr 18.60 ng/L (0-10) H 11/19/24 00:30 Troponin T Hi Sens 6Hr Delta 5.60 ng/L (0-12) 11/19/24 00:30 C-Reactive Protein 4.0 mg/L (0.0-4.9) 11/21/24 03:15 NT-Pro-B Natriuret Pep 1568 pg/mL (0-450) H 11/18/24 18:20 Total Protein 7.8 g/dL (6.6-8.7) 11/19/24 05:12 Albumin 4.0 g/dL (3.5-5.2) 11/19/24 05:12 Globulin 3.8 g/dL (1.3-4.6) 11/19/24 05:12 Lipase 16 U/L (13-60) 11/18/24 18:20 Procalcitonin 0.10 ng/mL (0-0.5) 11/21/24 03:15 Urine Color Yellow (Yellow) 11/20/24 07:32 Urine Appearance Clear (CLEAR) 11/20/24 07:32 Urine pH 6.0 (5-7) 11/20/24 07:32 Ur Specific [place] 1.013 (1.005-1.030) 11/20/24 07:32 Urine Protein Negative (Negative) 11/20/24 07:32 Urine Glucose (UA) Negative (Normal) 11/20/24 07:32 Urine Ketones Negative (Negative) 11/20/24 07:32 Urine Blood Negative (Negative) 11/20/24 07:32 Urine Nitrate Negative (Negative) 11/20/24 07:32 Urine Bilirubin Negative (Negative) 11/20/24 07:32 Urine Urobilinogen 1.0 mg/dL (Negative) 11/20/24 07:32 Ur Leukocyte Esterase Negative (Negative) 11/20/24 07:32 Amorphous Sediment Not Reportable 11/20/24 07:32 Vitals Last Vital Signs Temp 98.5 F 11/23/24 11:48 Pulse 64 11/23/24 11:48 Resp 15 11/23/24 11:48 BP 104/60 11/23/24 11:48 Pulse Ox 90 11/23/24 11:48 O2 Del Method Room Air 11/23/24 11:48 O2 Flow Rate 2 11/23/24 04:00 Discharge Plan Discharge Patient Disposition: Home Health Service Condition: Stable Prescriptions: New aspirin 81 mg tablet 81 mg PO DAILY 30 Days Qty: 30 0RF atorvastatin [Lipitor] 40 mg tablet 40 mg PO DAILY 30 Days Qty: 30 0RF lisinopril 20 mg Tablet 20 mg PO DAILY Qty: 30 0RF oxycodone [OxyContin] 10 mg Tablet,Oral Only,Ext.Rel.12 Hr 10 mg PO BID@0800,2000 Qty: 30 0RF oxycodone 5 mg Tablet 5 mg PO Q6H PRN (Reason: Moderate Pain) Qty: 30 0RF Continued (DME) cockup splint See Rx Instructions .Route .MEDSUPPLY Qty: 1 0RF Rx Instructions: As directed pantoprazole 40 mg tablet,delayed release (DR/EC) 40 mg PO QAM sertraline 100 mg tablet 200 mg PO DAILY trazodone 50 mg tablet 50 mg PO BEDTIME PRN (Reason: Sleep) levothyroxine 112 mcg tablet 112 mcg PO QAM gabapentin 100 mg Capsule 100 mg PO TID PRN (Reason: Pain) ondansetron [Zofran ODT] 4 mg Tablet,Disintegrating 4 mg PO Q6H PRN (Reason: Nausea And Vomiting) tramadol 50 mg Tablet 50 mg PO Q8H PRN (Reason: Pain) Rx Instructions: Prescription was for 10 days, filled on 11/09/24. nitroglycerin 0.4 mg Tablet, Sublingual 0.4 mg SUBLINGUAL Q5M PRN (Reason: Chest Pain) 30 Days Qty: 30 0RF Rx Instructions: do not exceed 3 doses per episode carvedilol 3.125 mg tablet 3.125 mg PO BID 30 Days Qty: 60 0RF Rx Instructions: must administer with a meal/food Discharge Orders: Discharge Order (Routine); Ordered 11/23/24 Ordered By: Sandro Clark Referrals: [facility] [Other] Referral Note: fax # [phone] [facility] [Outside] Kori Hernandez FNP [Primary Care Provider] Discharge Diet: Usual diet Discharge Activity: Increase activity as tolerated Patient Instructions: Opioid Safety Discharge Attestations Time Spent in Discharge Care*: less than 30 min Quality Metrics Clinical Quality Measures [ No reported AMI, CVA or VTE this stay] Coding Level of Care Code Acute Code for Chg Fwd Diagnoses Chest pain R07.9 Left leg pain M79.605 History of hypertension Z86.79 History of CAD (coronary artery disease) Z86.79
[2024-11-23] MEDS: ondansetron 4 MG Tablet PO (13:06)
== END 2024-11-23 13:55 | disposition home health service (06) | DRG 561 ==
LOC: ER 20:30 → MEDSURG 20:53
PROVIDERS: Family Medicine; Admitting Provider Internal Medicine; Emergency Provider Emergency Medicine; PCP Nurse Practitioner Family; Visit Provider Internal Medicine
DX: T84.031A Mechanical loosening of internal left hip prosthetic joint, initial encounter (principal); R07.9 Chest pain, unspecified; Y79.2 Prosthetic and other implants, materials and accessory orthopedic devices associated with adverse incidents; I10 Essential (primary) hypertension; I25.10 Atherosclerotic heart disease of native coronary artery without angina pectoris; E03.9 Hypothyroidism, unspecified; F32.A Depression, unspecified; Z95.5 Presence of coronary angioplasty implant and graft; Z79.82 Long term (current) use of aspirin
CPT/HCPCS: 36415; 71045; 72192; 73560; 73700; 78315; 78452; 80048; 80053; 81003; 83690; 83735; 83880; 84100; 84145; 84484; 85025; 85651; 86140; 93005; 93306; 93970; 96372; 99285; A9500; A9561; G0378; J1171; J1644; J2270; J2405; J2470; J7030; J9999; Q0162

== ENCOUNTER → 2024-12-13 12:46 | Outpatient (BNVA) | payer MEDICARE, SELFPAY | PROVIDERS: PCP Nurse Practitioner Family; Visit Provider Nurse Practitioner Family | DX: L30.9 Dermatitis, unspecified (principal); D69.2 Other nonthrombocytopenic purpura; L72.0 Epidermal cyst; L57.8 Other skin changes due to chronic exposure to nonionizing radiation; L57.0 Actinic keratosis; L81.4 Other melanin hyperpigmentation; X32.XXXA Exposure to sunlight, initial encounter; Z08 Encounter for follow-up examination after completed treatment for malignant neoplasm; Z85.828 Personal history of other malignant neoplasm of skin | CPT/HCPCS: 11104; 17000; 99204 ==

== ENCOUNTER → 2024-12-27 14:45 | Outpatient (BNVA) | payer MEDICARE, SELFPAY | PROVIDERS: PCP Nurse Practitioner Family; Visit Provider Nurse Practitioner Family | DX: L57.8 Other skin changes due to chronic exposure to nonionizing radiation (principal); L57.0 Actinic keratosis; L81.4 Other melanin hyperpigmentation; X32.XXXA Exposure to sunlight, initial encounter; Z08 Encounter for follow-up examination after completed treatment for malignant neoplasm; Z85.828 Personal history of other malignant neoplasm of skin | CPT/HCPCS: 99213 ==

== ENCOUNTER 2025-06-09 11:50 | Inpatient (IN) | payer MEDICARE, SELFPAY ==
--- OUTSIDE RECORDS SUMMARY | 2025-06-06 08:20 | XMS_ITS | Encounter Summary ---
Author Organization [facility] Address [address] [place] [address] Care Team Providers Care Gear Tooth Grinding Machine Operator Name Role Phone Denisse Chirinos DO Primary Care Provider [phone]- [phone] Reason for Referral * Eval and Treat (Routine) - Pending Review Specialty Diagnoses / Procedures Referred By Zachery castro Referred To Contact Dermatology Diagnoses Skin pruritus Skin eruption Skin mole Procedures [place] OFFICE/OUTPATIENT ESTABLISHED MOD MDM 30 MIN [place] OFFICE/OUTPATIENT NEW MODERATE MDM 45 MINUTES Kori Hernandez FNP [address] [place] [address] Phone: tel: fax: [address] [address] Phone: tel: fax: Referral ID Status Reason Start Date Expiration Date V isits Requested Visits Authorized [id number] Pending Review 06/06/2025 06/06/2026 1 1 TOPPER Reason for Visit * Reason Comments Follow Up Follow up Chronic Conditions Coordination Encounter Details Date Type Department Care Team ([facility] st Contact Info) Description 06/06/2025 8:20 AM BOWL TOPPER Office Visit [facility] [address] [place] [address] Kori Hernandez FNP [address] [place] [address] Skin pruritus (Primary Dx); Skin eruption; Skin mole Social History Tobacco Use Types Packs/Day Years Used Date Smoking Tobacco: Never Passive Smoke Exposure: Never Alcohol Use Standard Drinks/Week Comments Not Currently 0 (1 standard drink = 0.6 oz pur e alcohol) Feeling Safe Answer Date Recorded Are you in a relationship wi th someone who hurts you emotionally and/or physically? No 08/26/2024 Food Insecurity Answer Date Recorded Patient needs follow up regardin 10/06/2024 Transportation Needs Answer Date Record ed Patient needs follow up regardin 10/06/2024 Housing Stability Answer Date Recorded Social/Environmental Concerns No concerns Utility Needs Answer Date Recorded Patient needs follow up regardin 10/06/2024 Comments No Sex and Gender Information Value Date Recorded Sex Assigned at Not on file Legal Sex Female 4:01 PM BOWL TOPPER Gender Identity Not on file Sexual Orientation Not on file documented as of this encounter Last Filed Vital Signs Vital Sign Reading Time Taken Comments Blood Pressure 128/76 06/06/2025 8:24 AM BOWL TOPPER Pulse 78 06/06/2025 8:24 AM BOWL TOPPER Temperature 36.8 C (98.3 F) 06/06/2025 8:24 AM BOWL TOPPER Respiratory Rate 18 06/06/2025 8:24 AM BOWL TOPPER Oxygen Saturation 99% 06/06/2025 8:24 AM BOWL TOPPER Inhaled Oxygen Concentration - - Weight 59.8 kg (131 lb 12.8 oz) 06/06/2025 8:24 AM BOWL TOPPER Height 165.1 cm (5' 5 ) 06/06/2025 8:24 AM BOWL TOPPER Body Mass Index 21.93 06/06/2025 8:24 AM BOWL TOPPER documented in this encounter Progress Notes * Kori Hernandez FNP - 06/06/2025 8:37 AM CST Images from the original note were not included. 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 She removed a heart monitor after 3 hours due to severe itching and burning over her moles, which became inflamed. The itching persisted for 3 days. [facility]'s after-hours service advised against tying a thread around the moles, and an appointment was scheduled. Patient continued complaining of chronic ongoing skin itching symptoms. Attempts to manage these spots with bleach and cleaning agents were unsuccessful. Dark spots improved with frequent arm shaving. She missed a analytical engineer appointment on 05/31/2025 through [facility] in [facility]. Patient report she was late for appointment and was told that she was unable to see the dermato logy doctor. Permethrin and steroid creams were previously ineffective, but hydroxyzine provided relief. Spots on her stomach have almost disappeared, but some remain on her neck. 10 point review of systems is otherwise negative except as mentioned above. Past Medical History: Diagnosis Date Arthritis Cancer (CMS/HCC) GERD (gastroesophageal reflux disease) Headache Heart attack (CMS/HCC) Hyperlipidemia Kidney stones Current Outpatient Medications Medication Instructions aspirin (ECOTRIN EC) 81 mg, Oral, TWO TIMES DAILY carvedilol (COREG) 3.125 mg, Oral, TWO TIMES DAILY WITH MEALS clobetasol (TEMOVATE) 0.05 % Ointment Topical, TWO TIMES DAILY gabapentin (NEURONTIN) 100 mg, Oral, THREE TIMES DAILY PRN hydrOXYzine HCL (ATARAX) 25 mg, Oral, THREE TIMES DAILY PRN levothyroxine (SYNTHROID) 112 mcg, Oral, DAILY EARLY nitroglycerin (NITROSTAT) 0.4 mg, Sublingual, EVERY 5 MINUTES PRN ondansetron (ZOFRAN ODT) 4 mg, Sublingual, EVERY 6 HOURS PRN, Dissolve tablet on top of tongue, then swallow with saliva. pantoprazole (PROTONIX) 40 mg, Oral, DAILY sertraline (ZOLOFT) 200 mg, Oral, DAILY traMADol (ULTRAM) 50 mg, Oral, EVERY 8 HOURS PRN traZODone (DESYREL) 50 mg, Oral, DAILY AT BEDTIME Past Surgical History: Procedure Laterality Date HX BACK SURGERY HX ESOPHAGOGASTRODUODENOSCOPY N/A 08/26/2024 ESOPHAGOGASTRODUODENOSCOPY performed by Drew Griffith MD at [facility] ENDOSCOPY HX GALLBLADDER SURGERY HX HEART CATHETERIZATION HX HIP REPLACEMENT Bilateral HX KNEE REPLACEMENT Left Past social, family, and medical history reviewed. BP 128/76 Pulse 78 Temp 98.3 ??F (36.8 ??C) Resp 18 Ht 5' 5 (1.651 m) Wt 59.8 kg (131 lb 12.8 oz) SpO2 99% BMI 21.93 kg/m?? Physical Exam Constitutional: General: She is not in acute distress. Appearance: Normal appearance. She is not ill-appearing. HENT: Right Ear: External ear normal. Left Ear: External ear normal. Eyes: Conjunctiva/sclera: Conjunctivae normal. Pupils: Pupils are equal, round, and reactive to light. Cardiovascular: Rate and Rhythm: Normal rate and regular rhythm. Heart sounds: No murmur heard. Pulmonary: Effort: Pulmonary effort is normal. No respiratory distress. Chest: Musculoskeletal: General: Normal range of motion. Skin: General: Skin is warm and dry. Findings: Lesion (There is three skin mole on right upper chest area. All three skin lesion is lessthan 0.5 cm in size and is elevated with flesh skin like color, they are round.) and rash (Patient's bilateral arm has differing skin discoloration. Aging skin spots and mild bruising noted. No obvious erythema rash noted.) present. Neurological: Mental Status: She is alert and oriented to person, place, and time. Psychiatric: Mood and Affect: Mood normal. Behavior: Behavior normal. ICD-10-CM ICD-9-CM 1. Skin pruritus L29.9 698.9 AMB REFERRAL TO DERMATOLOGY clobetasol (TEMOVATE) 0.05 % Ointment hydrOXYzine HCL (ATARAX) 25 mg tablet 2. Skin eruption R21 782.1 AMB REFERRAL TO DERMATOLOGY clobetasol (TEMOVATE) 0.05 % Ointment hydrOXYzine HCL (ATARAX) 25 mg tablet 3. Skin mole D22.9 216.9 AMB REFERRAL TO DERMATOLOGY Assessment & Plan Chronic pruritus: - Skin itching symptoms began in summer post-hospitalization in [place], severe itching especially on arms -Patient has tried various of skin creams including clobetasol, triamcinolone, permethrin topical cream without significant improvement. Oral hydroxyzine does seem to reduce itching some. - Patient missed her recent dermatology follow-up appointment in [place] this past week and patient do not wish to go back to the dermatology department in [place]. She is interested have a consultation with another dermatology department - Referral to [facility] for further evaluation. Patient was previously referred to [facility] earlier this past summer and patient had some phone issues and was not able to successfully schedule appointment. Will retry to [facility] at this time - Hydroxyzine prescription to manage itching, caution about drowsiness Skin lesions: - She has 3 skin mole on her left upper chest for very long time. Recent Holter monitor irritated those skin lesions - Will refer patient to see dermatology department - Patient has been instructed to call the clinic if she is unable to successfully schedule with [facility] dermatology within a month and office staff will try to help to schedule appointment JOSAFAT Ortiz-Denia The author of this note, patient (or authorized territory representative), and all other persons present consent to the audio recording of this visit for charting documentation purposes. This note was automatically generated, edited by a Quality Sales Vice President, and finalized by JOSAFAT Moore. TOPPER documented in this encounter Plan of Treatment Upcoming Encounters Date Type Department Care Team (Late st Contact Info) Description 07/08/2025 9:20 AM BOWL TOPPER Office Visit [facility] [address] [place] [phone] Omkar Hernandezramseyangel Torres, TEMPLATE INSPECTOR [address] [place] [phone] Scheduled Referrals Name Type Priority Associated Diagnoses Order Schedule AMB REFERRAL TO DERMATOLOGY Outpatient Referral Routine Skin pruritus Skin eruption Skin mole Ordered: 06/06/2025 documented as of this encounter Visit Diagnoses Diagnosis Skin pruritus- Primary Unspecified pruritic disorder Skin eruption Rash and other nonspecific skin eruption Skin mole Benign neoplasm of skin, site unspecified documented in this encounter Care Teams Gear Tooth Grinding Machine Operator Relationship Specialty Start Date End Date Denisse Chirinos DO [address] [place] [address] PCP - General Family Practice 03/03/23 documented as of this encounter
[2025-06-09 11:48] VITALS: BP 140/85; PULSE 84; RESP 18; TEMP 36.7; O2SAT 96; BMI 21.8
[2025-06-09 11:59] VITALS: O2SAT 90
--- NOTE | 2025-06-09 11:59 | XRR_ITS ---
PROCEDURE INFORMATION: Exam: XR Chest Exam date and time: 06/09/2025 12:19 PM Age: 84 years old Clinical indication: Dyspnea; Additional info: Chest pain TECHNIQUE: Imaging protocol: Radiologic exam of the chest. Views: 1 view. COMPARISON: CR XR chest 1V portable [id number] 11/18/2024 7:47 PM FINDINGS: Lungs: Both lungs demonstrate diffuse interstitial coarsening which is felt to be chronic. No lung mass or infiltrate. Pleural spaces: Unremarkable. No pleural effusion. No pneumothorax. Heart/Mediastinum: Unremarkable. No cardiomegaly. Bones/joints: Unremarkable. XR/XR chest 1V portable [id number] IMPRESSION: 1. No acute findings 2. Chronic lung changes are noted
--- NOTE | 2025-06-09 11:59 | ECG_ITS ---
[facility]: 2025-06-09 Pat Name: Taylor Beaver Department: Room: Gender: Female Special Police: : 1940 Requested By: Marii Kim Order Number: [id number] Reading MD: DESTINY LALA Measurements Intervals [place] Rate: 83 P: 56 WV: 146 QRS: 9 QRSD: 138 T: 48 QT: 454 QTc: 535 Interpretive Statements SINUS RHYTHM RIGHT BUNDLE BRANCH BLOCK [120+ ms QRS DURATION, UPRIGHT V1, 40+ ms S IN I/aVL/V4/V5/V6] Compared to ECG 11/21/2024 23:52:34 No significant changes Electronically Signed On 06-12-2025 23:11:04 LIPSTICK MOLDER by DESTINY LALA [id number]
--- NOTE | 2025-06-09 12:00 | W.ED.CHESTPA ---
HPI - Chest Pain General: Chief Complaint: ER Hold Stated Complaint: chest pain Time Seen by Provider: 06/09/25 11:57 History of Present Illness: 84-year-old female with a history of coronary artery disease, kidney stones, hypothyroidism, hyperlipidemia, depression, hypertension and type 2 diabetes who presents to the emergency room with chest pain by ambulance from home. She had been having chest pain since yesterday. She describes a central chest pain radiated to her left arm. She received aspirin, Zofran, morphine, 2 nitro sprays and Nitropaste on the ambulance and pain has now improved. She said the pain was absolutely horrible. She described as a pressure going into her left chest. Related Data Home Medications ?Medication ?Instructions ?Recorded ?Confirmed pantoprazole 40 mg tablet,delayed 40 mg PO QAM 04/30/22 06/09/25 release levothyroxine 112 mcg tablet 112 mcg PO QAM 08/04/22 06/09/25 sertraline 100 mg tablet 200 mg PO DAILY 07/15/23 06/09/25 trazodone 50 mg tablet 50 mg PO BEDTIME PRN Sleep 07/15/23 06/09/25 gabapentin 100 mg capsule 100 mg PO TID PRN Pain 11/18/24 06/09/25 ondansetron 4 mg disintegrating 4 mg PO Q6H PRN Nausea And Vomiting 11/18/24 06/09/25 tablet tramadol 50 mg tablet 50 mg PO Q8H PRN Pain 11/19/24 06/09/25 acetaminophen 500 mg tablet 1,000 mg PO Q6H PRN Pain 06/09/25 06/09/25 Previous Rx's ?Medication ?Instructions ?Recorded cockup splint #1 ea 07/30/23 carvedilol 3.125 mg tablet 3.125 mg PO BID 30 days #60 tabs 11/19/24 nitroglycerin 0.4 mg sublingual 0.4 mg sublingual Q5M PRN Chest 11/19/24 tablet Pain 30 days #30 tabs lisinopril 20 mg tablet 20 mg PO DAILY #30 tabs 11/23/24 Allergies Allergy/AdvReac Type Severity Reaction Status Date / Time No Known Allergies Allergy Verified 01/06/24 14:09 Review of Systems Narrative: Constitutional symptoms: Negative except as documented in HPI. Skin symptoms: Negative except as documented in HPI. Eye symptoms: Negative except as documented in HPI. ENMT symptoms: Negative except as documented in HPI. Respiratory symptoms: Negative except as documented in HPI. Cardiovascular symptoms: Negative except as documented in HPI. Gastrointestinal symptoms: Negative except as documented in HPI. Genitourinary symptoms: Negative except as documented in HPI. Musculoskeletal symptoms: Negative except as documented in HPI. Neurologic symptoms: Negative except as documented in HPI. Psychiatric symptoms: Negative except as documented in HPI. Endocrine symptoms: Negative except as documented in HPI. PFSH ED PFSH: Medical History (Updated 06/09/25 @ 17:26 by Marii Cottrell MD) History of CAD (coronary artery disease) History of nephrolithiasis History of hypothyroidism History of hyperlipidemia History of depression History of hypertension History of type 2 diabetes mellitus Lumbar stenosis with neurogenic claudication Surgical History (Updated 11/24/24 @ 00:00 by PRADIP Edmondson) Post-operative state History of heart artery stent History of back surgery History of left hip replacement Family History Mother CAD (coronary artery disease) Social History Smoking and tobacco/nicotine status: never used tobacco/nicotine Alcohol intake: never Substance/Drug Use: never Physical Exam Narrative: EXAM NARRATIVE: General: Alert, no acute distress. Skin: Warm, dry. Head: Normocephalic, atraumatic. Neck: Supple, trachea midline. Eye: Extraocular movements are intact. Ears, nose, mouth and throat: mucosa moist. Cardiovascular: Regular, Normal peripheral perfusion. Respiratory: Lungs are clear to auscultation, respirations are non-labored, breath sounds are equal, Symmetrical chest wall expansion. Gastrointestinal: Soft, Nontender, Non distended Musculoskeletal: Normal ROM, no deformity. Neurological: Alert and oriented, No focal neurological deficit observed. Psychiatric: Cooperative, appropriate mood & affect. Course Vital Signs: Vital signs: Vital Signs Temperature 98.1 F 06/09/25 11:48 Pulse Rate 70 06/09/25 16:10 Respiratory Rate 18 06/09/25 11:48 Blood Pressure 137/70 06/09/25 16:10 Pulse Oximetry 91 06/09/25 16:10 Oxygen Delivery Me thod Room Air 06/09/25 16:10 Oxygen Flow Rate 2 06/09/25 13:01 MDM - Chest Pain Medical Decision Making Medical decision making Patient's reason for coming to the emergency room: Chest pain Social determinants: Retired. . I reviewed the patient's medical record. 84-year-old female with a history of coronary artery disease, kidney stones, hypothyroidism, hyperlipidemia, depression, hypertension and type 2 diabetes I reviewed the patient's current home meds Patient does not have any anticoagulation listed. She says she has had a heart attack but she does not believe she has had stents Alternate historians: None Differential diagnosis for patient with chest pain includes but is not limited to and based on the above HPI, review of systems and physical exam: Pneumonia. unstable angina. angina. Acute coronary syndrome / [place]. Pulmonary embolism. Costochondritis / musculoskeletal. Pleurisy. Pericarditis. Esophageal spasm. Pancreatitis. Cholecystitis. Orders placed to evaluate differential diagnosis based on the above differential, HPI and physical exam m EKG: Normal sinus rhythm, no ST changes., no ectopy, right bundle branch block, This was reviewed and interpreted by myself the ER physician at 11:57 AM time 11:53 AM. Rate 83. Repeat EKG: Time 1255. Rate 78. Normal sinus rhythm, No ST-T changes, no ectopy, right bundle branch block, This was reviewed and interpreted by myself the ER physician at 1259. No significant changes from EKG done previously today in the emergency room. Chest x-ray: No acute process. No infiltrate. No pneumothorax. This was reviewed and interpreted by myself the emergency room physician. I also reviewed the radiology report. No leukocytosis. No anemia. No renal gardenia Serial markers are mildly elevated but unchanged. This is likely her baseline.lure. Lab Review: Laboratory results were reviewed and interpreted by myself the emergency room physician. Assessment of risk: Level of risk: moderate to high risk patient. Elderly patient with multiple comorbidities and a reported history of coronary artery disease Hospitalization considerations: Patient is being placed on observation to rule out acute coronary syndrome Clinical decision support: Patient has a heart score 7 Reexamination: Patient remained stable. No increased work of breathing. No altered mental status. No focal motor deficits. Consultation: I spoke with Dr. Parisi who is on-call for the hospital service who agrees to admission Assessment and plan: Chest pain Coronary artery disease -I discussed the patient with the hospitalist on-call who is admitting the patient. - Discussed findings and plan with patient. Answered any questions. - All laboratory values were reviewed and interpreted personally by myself, the ER physician - All imaging was reviewed and interpreted personally by myself, the ER physician. - Evaluation and treatment of this problem were appropriate in the emergency setting Lab Data 06/09/25 12:19 06/09/25 12:19 Radiology Impressions Chest X-Ray 06/09/25 11:59 IMPRESSION: 1. No acute findings 2. Chronic lung changes are noted Laboratory Results WBC 7.70 10^3/uL (3.29-11.43) 06/09/25 12:19 RBC 3.90 10^6/uL (3.85-5.65) 06/09/25 12:19 Hgb 11.10 g/dL (11.27-16.99) L 06/09/25 12:19 Hct 36.3 % (36-47) 06/09/25 12:19 MCV 93.1 fl (85-98) 06/09/25 12:19 MCH 28.5 pg (27-33) 06/09/25 12:19 MCHC 30.6 g/dL (30-55) 06/09/25 12:19 RDW 18.2 % (12.1-15.1) H 06/09/25 12:19 Plt Count 194 10^3/cmm (157-399) 06/09/25 12:19 MPV 10.1 fL (7.4-10.4) 06/09/25 12:19 Neut % (Auto) 73.6 % 06/09/25 12:19 Lymph % (Auto) 18.1 % 06/09/25 12:19 [place] % (Auto) 5.6 % 06/09/25 12:19 Eos % (Auto) 1.8 % 06/09/25 12:19 Baso % (Auto) 0.5 % 06/09/25 12:19 Neut # (Auto) 5.67 10^3/uL (1.8-7.7) 06/09/25 12:19 Lymph # (Auto) 1.4 10^3/uL (0.8-4.8) 06/09/25 12:19 [place] # (Auto) 0.4 10^3/uL (0.2-0.9) 06/09/25 12:19 Eos # (Auto) 0.1 10^3/uL (0.0-0.8) 06/09/25 12:19 Baso # (Auto) 0.0 10^3/uL (0.0-0.1) 06/09/25 12:19 Nucleated RBC % (auto) 0 % 06/09/25 12:19 Nucleated RBCs # 0.0 /100WBC 06/09/25 12:19 PT 12.90 SECONDS (12.1-14.9) 06/09/25 12:19 INR 0.91 (0.8-1.2) 06/09/25 12:19 APTT 29.4 SECONDS (23.9-36.7) 06/09/25 12:19 Sodium 142 mmol/L (136-145) 06/09/25 12:19 Potassium 3.9 mmol/L (3.5-5.1) 06/09/25 12:19 Chloride 105 mmol/L (98-107) 06/09/25 12:19 Carbon Dioxide 28 mmol/L (22-29) 06/09/25 12:19 Anion Gap 12.9 (5-19) 06/09/25 12:19 BUN 10 mg/dL (8-23) 06/09/25 12:19 Creatinine 0.8 mg/dL (0.5-0.9) 06/09/25 12:19 GFR Calculation Not Reportable 06/09/25 12:19 Glucose 118 mg/dL (65-115) H 06/09/25 12:19 Calculated Osmolality 294 mOsm/kg (285-295) 06/09/25 12:19 Calcium 8.9 mg/dL (8.5-10.5) 06/09/25 12:19 Total Bilirubin 0.5 mg/dL (0.15-1.2) 06/09/25 12:19 AST 15 U/L (0-32) 06/09/25 12:19 ALT 9 U/L (0-33) 06/09/25 12:19 Alkaline Phosphatase 78 U/L (35-105) 06/09/25 12:19 Troponin T Baseline 19 ng/L (0-10) H 06/09/25 12:19 Troponin T 60 Minute 19.67 ng/L (0-10) H 06/09/25 13:19 Delta Troponin T 0.67 ABS# (0-10) 06/09/25 13:19 NT-Pro-B Natriuret Pep 317 pg/mL (0-450) 06/09/25 12:19 Total Protein 6.7 g/dL (6.6-8.7) 06/09/25 12:19 Albumin 4.0 g/dL (3.5-5.2) 06/09/25 12:19 Globulin 2.7 g/dL (1.3-4.6) 06/09/25 12:19 Lipase 20 U/L (13-60) 06/09/25 12:19 All radiology interpretation(s) finalized by discharge Clincial Decision Support The following clinical decision support tools were used to aid in care of the patient HEART Score -> History: Highly Suspicious, EKG: Normal, Age: 65 or more yrs, Risk Factors: >/=3 Risk Factors, Troponin: Baseline Trop 16-45 ng/L. Resulting HEART Score: 7. Discharge Plan Discharge Patient Disposition: Placed in Observation Admit Provider: Juan Parisi Clinical Impression: Chest pain, History of CAD (coronary artery disease) Coding Level of Care Code ED Bodywork Therapist for g Fwd Heart Score HEART Score Components History: Highly Suspicious EKG: Normal Age: 65 or more yrs Risk Factors: >/=3 Risk Factors Troponin: Baseline Trop 16-45 ng/L HEART Score RESULT HEART Score: 7
--- OUTSIDE RECORDS SUMMARY | 2025-06-09 12:00 | XMS_ITS | Encounter Summary ---
Author Organization [facility] Address [address] [place] [address] Care Team Providers Care Trimming Cutter Machine Name Role Phone Denisse Chirinos Primary Care Provider [phone]- [phone] Reason for Visit * Reason Comments Patient Communication Encounter Details Date Type Department Care Team ([facility] st Contact Info) Description 06/01/2025 Telephone [facility] [place] [address] [place] [address] [facility] [address] [place] [address] Patient Communication Social History Tobacco Use Types Packs/Day Years [...] on file Legal Sex Female 4:01 PM METHODS STUDY ANALYST Gender Identity Not on file Sexual Orientation Not on file documented as of this encounter Miscellaneous Notes * Telephone Encounter - Carole Ornelas LPN - 06/03/2025 12:42 PM CST Attempted to call pt. Left message to call office. Carole Ornelas LPN, 06/03/2025 12:43 PM ODS STUDY ANALYST * Telephone Encounter - Carole Ornelas LPN - 06/02/2025 2:49 PM CST Attempted to call pt. Left message to call office. Carole Ornelas LPN, 06/02/2025 2:49 PM ODS STUDY ANALYST * Telephone Encounter - Syeda Sifuentes - 06/02/2025 2:38 PM CST Copied from [facility] #[id number]. Topic: CPA Information Request >> Jun 02, 2025 2:38 PM Syeda Blackwood wrote: Caller is returning phone call from clinic. Caller Name: Patient Patient/Caregiver Callback Number: [phone] Clinic Left Note In Chart Is there a note from the clinic requesting the caller be transferred when they call back? No Are the credentials of the caregiver who called the patient music library assistant? Yes Call Notes: Communicated information that is documented in the note. Caller wants a call back from clinic. ODS STUDY ANALYST * Telephone Encounter - Carole Ornelas LPN - 06/01/2025 3:45 PM CST Left message for pt to call the office. Carole Ornelas LPN, 06/01/2025 3:45 PM ODS STUDY ANALYST * Telephone Encounter - Syeda Sifuentes - 06/01/2025 10:22 AM CST Copied from [facility] #[id number]. Topic: CPA Information Request >> Jun 01, 2025 10:22 AM Syeda Blackwood wrote: Caller is returning phone call from clinic. Caller Name: Patient Patient/Caregiver Callback Number: [phone] Patient Has Additional Questions Are the credentials of the caregiver who talked to the patient music library assistant? No Call Notes: Patient/Caller requires a call back to discuss that the [facility] clinic turned her away forbeing 2 mins late for the appt ODS STUDY ANALYST documented in this encounter Plan of Treatment Upcoming Encounters Date Type Department Care Team (Late st Contact Info) Description 07/08/2025 9:20 AM METHODS STUDY ANALYST Office Visit [facility] [place] [address] [place] [address] Kori Hernandez FNP [address] [place] [address] documented as of this encounter Visit Diagnoses Not on filedocumented in this encounter Care Teams Trimming Cutter Machine Relationship Specialty Start Date End Date Denisse Chirinos DO [address] [place] [phone] PCP - General Family Practice 03/03/23 documented as of this encounter
--- OUTSIDE RECORDS SUMMARY | 2025-06-09 12:00 | XMS_ITS | Encounter Summary ---
Author Organization [facility] Address [address] [place] [address] Care Team Providers Care Typewriter Ribbon Winder Name Role Phone Denisse Chirinos Primary Care Provider [phone] [phone] Reason for Visit * Reason Onset Date Comments [facility] Primary Care After Hours 06/04/2025 Encounter Details Date Type Department Care Team (Late st Contact Info) Description 06/04/2025 Telephone [facility] [address] [place] [phone] Brooklyn Carrillo RN [facility] Primary Care After Hours Social History Tobacco Use Types Packs/Day Years [...] on file Legal Sex Female 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 Called provider and addressed - removed and then replaced. Improving some although still with painful burning. States now one of the moles are protruding/feels swollen. Wondering if this could be frozen for removal. Also wanting advice regarding taking a sewing threadand then tying a knot off on the area that is protruding. Denies redness, warmth, no fevers or drainage from the mole Denies chest pain or SOB. Discussed with ER MD Ornelas. Advise against removing on her own. Offered appt with PCP Friday @ 0820and patient is agreeable. May apply OTC numbing cream for relief in the meantime. Understanding voiced. Brooklyn Cantu RN BSN [facility] [employer] ER WORKER documented in this encounter Plan of Treatment Upcoming Encounters Date Type Department Care Team (Late st Contact Info) Description 07/08/2025 9:20 AM BUNKER WORKER Office Visit [facility] Medicine [place] [address] [place] [address] Kori Hernandez, [facility] [address] [place] [phone] documented as of this encounter Visit Diagnoses Not on filedocumented in this encounter Care Teams Typewriter Ribbon Winder Relationship Specialty Start Date End Date Denisse Chirinos DO [address] [place] [address] PCP - General Family Practice 03/03/23 documented as of this encounter
--- OUTSIDE RECORDS SUMMARY | 2025-06-09 12:00 | XMS_ITS | Encounter Summary ---
Author Organization [facility] Address [address] [place] [address] Care Team Providers Care Hospice Administrator Name Role Phone Denisse Chirinos DO Primary Care Provider [phone] [phone] Reason for Visit * Reason Comments Clinical Consult Before Scheduling Patient Communication Encounter Details Date Type Department Care Team ([facility] st Contact Info) Description 01/06/2025 Nurse Triage [facility] [place] [address] [place] [address] [facility] [address] [place] [address] Social History Tobacco Use Types Packs/Day Years [...] on file Legal Sex Female 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 No answer. Left voice mail/message to return our call. If patient/caregiver calls back, contact center please inform caller to expect a return call from the clinic. Brittany BARNES * Telephone Encounter - Brittany Noyola LPN - 01/07/2025 8:48 AM CDT 01/07/2025 8:49 AM Returned call. No answer. Left voice mail/message to return our call. If patient/caregiver calls back, contact center please inform caller to expect a return call from the clinic. Brittany BARNES * Telephone Encounter - Brittany Noyola LPN - 01/06/2025 2:43 PM CDT 01/06/2025 2:43 PM Returned call. No answer. Left voice mail/message to return our call. If patient/caregiver calls back, contact center please inform caller to expect a return call from the clinic. Brittany BARNES * Telephone Encounter - Charlotte Cifuentes - 01/06/2025 2:24 PM CDT Copied from [facility] #[id number]. Topic: CPA Information Request >> Jan 06, 2025 2:23 PM Charlotte Gallardo wrote: Caller is returning phone call from clinic. Caller Name: Taylor Beaver Patient/Caregiver Callback Number: Telephone Information: Clinic Left Note In Chart Is there a note from the clinic requesting the caller be transferred when they call back? No Are the credentials of the caregiver who called the patient plant supervisor? Yes Call Notes: Communicated information that is documented in the note. Caller wants a call back from clinic. * Telephone Encounter - Brittany Noyola LPN - 01/06/2025 2:18 PM CDT 01/06/2025 2:18 PM Returned call. No answer. Left voice mail/message to return our call. If patient/caregiver calls back, contact center please inform caller to expect a return call from the clinic. Brittany BARNES * Telephone Encounter - Clementina Janice Tam - 01/06/2025 2:14 PM CDT Copied from [facility] #[id number]. Topic: Symptomatic Care >> Jan 06, 2025 2:11 PM Janice Blackwood wrote: Has this patient seen any provider (current or former) at the requested clinic in the past? Yes, Select the appropriate age range and symptom Patient has symptoms and is seeking care. Caller Name: Taylor Beaver Callback Number: Telephone Information: Call Notes: Patient stated she called an food mixer assembler per her providers request. She was told she did not have bed bugs. Patient is wanting to know if the medication that was prescribed would change. Requesting a call back. The patient's preferred pharmacy is [facility] - [place] [address]. Age Range/Symptom: Adult 18+ - Other Symptoms: none Does patient have any of the following other urgent symptoms: No urgent symptoms requiring warm call transfer {Patient Access Instructions Verify in Consumer View if the Clinic offers Walk In hours If no walk in hours or patient prefers to schedule, then schedule appointment with Clinic (Does notneed to be 24 - 48 hours) Search Team based scheduling for SAME DAY [166] Search Team based scheduling for OFFICE VISIT ESTABLISHED [130] Search Team based scheduling for VIDEO VISIT [674] Were you able to schedule appointment within patient's desired timeframe? No What community is the patient in? [place] Unable to schedule appointment within patient's desired timeframe. Patient declined all other options for immediate care, preferring to schedule first available. Scheduled appointment for n/a. If this is not clinically appropriate, please contact patient. documented in this encounter Plan of Treatment Upcoming Encounters Date Type Department Care Team ([facility] st Contact Info) Description 07/08/2025 9:20 AM BRIM WELT SEWING MACHINE OPERATOR Office Visit [facility] [address] [place] [address] Kori Hernandez FNP [address] [place] [phone] documented as of this encounter Visit Diagnoses Not on filedocumented in this encounter Care Teams Hospice Administrator Relationship Specialty Start Date End Date Denisse Chirinos DO [address] [place] [address] PCP - General Family Practice 03/03/23 documented as of this encounter
--- OUTSIDE RECORDS SUMMARY | 2025-06-09 12:00 | XMS_ITS | Encounter Summary ---
Author Organization [facility] Address [address] [place] [address] Care Team Providers Care Candle Pourer Name Role Phone Denisse Chirinos DO Primary Care Provider [phone] Encounter Details Date Type Department Care Team ([facility] Contact Info) Description 09/10/2024 Lab Requisition [facility] Laboratory Services [place] [address] [place] [address] September, SENIOR RESEARCH ASSOCIATE [address] [place] [address] Other specified respiratory disorders Social History Tobacco Use Types Packs/Day Years Used Date Smoking Tobacco: Never Passive Smoke Exposure: Never Alcohol Use Standard Drinks/Week Comments Not Currently 0 (1 standard drink = 0.6 oz pur e alcohol) Feeling Safe Answer Date Recorded Are you in a relationship wi th someone who hurts you emotionally and/or physically? 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 Gender Identity Not on file Sexual Orientation Not on file documented as of this encounter Plan of Treatment Upcoming Encounters Date Type Department Care Team ([facility] Contact Info) Description 07/08/2025 9:20 AM DIELECTRIC TESTER Office Visit [facility] Medicine [place] [address] [place] [facility] [phone] Kori Hernandez, [facility] [address] [place] [place] [phone] documented as of this encounter Procedures Procedure Name Priority Date/Time Associated Diagnosis Comments CBC WITH DIFFERENTIAL Stat 09/10/2024 2:04 PM CDT Other specified respiratory disorders COMPREHENSIVE METABOLIC PANEL Stat 09/10/2024 2:04 PM CDT Other specified respiratory disorders documented in this encounter Results * (ABNORMAL) COMPREHENSIVE METABOLIC PANEL (09/10/2024 2:04 PM CDT) SODIUM 143 136 - 145 mmol/L 09/10/2024 2:29 PM T [facility] POTASSIUM 3.7 3.5 - 5.1 mmol/L 09/10/2024 2:29 PM T [facility] CHLORIDE 108(H) 98 - 107 mmol/L 09/10/2024 2:29 PM T [facility] CO2 23 22 - 29 mmol/L 09/10/2024 2:29 PM [facility] CALCIUM 9.0 8.8 - 10.2 mg/dL 09/10/2024 2:29 PM [facility] BUN 13 8 - 23 mg/dL 09/10/2024 2:29 PM [facility] CREATININE 0.74 0.51 - 0.95 mg/dL 09/10/2024 2:29 PM T [facility] Comment:The GFR result is no t clinically significant on patients <18 or >70 years of age. GLUCOSE 101(H) 74 - 99 mg/dL 09/10/2024 2:29 PM [facility] TOTAL PROTEIN 6.9 6.6 - 8.7 g/dL 09/10/2024 2:29 PM T [facility] ALBUMIN 4.0 4.0 - 4.9 g/dL 09/10/2024 2:29 PM T [facility] BILIRUBIN TOTAL 0.3 <=1.2 mg/dL 09/10/2024 2:29 PM T [facility] ALKALINE PHOSPHATASE 62 35 - 104 U/L 09/10/2024 2:29 PM [facility] AST 18 0 - 35 U/L 09/10/2024 2:29 PM [facility] ALT 10 0 - 35 U/L 09/10/2024 2:29 PM [facility] GFR >60 mL/min/1.7 3 sq meter 09/10/2024 2:29 PM [facility] Comment:eGFR calculated with 2020 CKD-EPI equation. Vegetarian diet, extremely high or low muscle mass, and may affect results. Cystatin C with Glomerular Filtration Rate is a suitable alternative for these patients. ANION GAP 12 5 - 20 mmol/L 09/10/2024 2:29 PM [facility] Blood Collection / Unknown 09/10/2024 2:04 PM CDT 09/10/2024 2:04 PM CDT September Brooke SENIOR RESEARCH ASSOCIATE CHEMISTRY ORDERABLES Final Resul t [facility] CLIA # [id number] [address] [place] [address] * (ABNORMAL) CBC WITH DIFFERENTIAL (09/10/2024 2:04 PM CDT) WBC 5.8 4.0 - 10.0 K/uL 09/10/2024 2:12 PM [facility] RBC 3.96 3.93 - 5.22 M/uL 09/10/2024 2:12 PM [facility] HEMOGLOBIN 11.8 11.2 - 15.7 g/dL 09/10/2024 2:12 PM [facility] HEMATOCRIT 38.2 34.1 - 44.9 % 09/10/2024 2:12 PM [facility] MCV 96.5(H) 79.4 - 94.8 fL 09/10/2024 2:12 PM [facility] MCH 29.8 25.6 - 32.2 pg 09/10/2024 2:12 PM [facility] MCHC 30.9(L) 32.2 - 35.5 g/dL 09/10/2024 2:12 PM [facility] RDW 15.2(H) 11.0 - 14.5 % 09/10/2024 2:12 PM [facility] RDW-STDEV 54.5 36.9 - 56.9 fL 09/10/2024 2:12 PM [facility] PLATELETS 279 163 - 337 K/uL 09/10/2024 2:12 PM [facility] MPV 10.7 10.0 - 14.8 fL 09/10/2024 2:12 PM [facility] NEUTROPHILS 50 34 - 71 % 09/10/2024 2:12 PM [facility] LYMPHOCYTES 32 19 - 52 % 09/10/2024 2:12 PM [facility] MONOCYTES 9 5 - 13 % 09/10/2024 2:12 PM [facility] EOSINOPHILS 8(H) 1 - 6 % 09/10/2024 2:12 PM [facility] BASOPHILS 1 0 - 1 % 09/10/2024 2:12 PM [facility] IMMATURE GRANULOCYTES 0 % 09/10/2024 2:12 PM [facility] NEUTROPHIL ABSOLUTE 2.91 1.56 - 6.13 K/uL 09/10/2024 2:12 PM [facility] LYMPHOCYTE ABSOLUTE 1.86 1.20 - 3.40 K/uL 09/10/2024 2:12 PM [facility] MONOCYTE ABSOLUTE 0.54(H) 0.24 - 0.36 K/uL 09/10/2024 2:12 PM [facility] EOSINOPHIL ABSOLUTE 0.46(H) 0.04 - 0.36 K/uL 09/10/2024 2:[address] [facility] BASOPHILS ABSOLUTE 0.05 0.01 - 0.08 K/uL 09/10/2024 2:12 PM CDT [facility] IMMATURE GRANULOCYTES ABSOLUTE 0.02 K/uL 09/10/2024 2:12 PM CDT [facility] Blood Collection / Unknown 09/10/2024 2:04 PM CDT 09/10/2024 2:04 PM CDT September SENIOR RESEARCH ASSOCIATE HEMATOLOGY ORDERABLES Final Resu lt [facility] CLIA # [id number] [address] [place] [id number] documented in this encounter Visit Diagnoses Diagnosis Other specified respiratory disorders documented in this encounter Care Teams Candle Pourer Relationship Specialty Start Date End Date Denisse Chirinos DO [address] [place] [address] PCP - General Family Practice 03/03/23 documented as of this encounter
--- OUTSIDE RECORDS SUMMARY | 2025-06-09 12:00 | XMS_ITS | Encounter Summary ---
Author Organization [facility] Address 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 She said that the chest pain has been constant in the center of her chest and radiates to her left breast into her back and down her left arm. She rates the pain in her arm and 8 out of 10 and states that she feels like she is having crushing pain. She states that she has taken nitro but it does not seem to help. She was advised to go to the emergency room or call 911 but she declines todo so as she states that [facility] knows how she feels about going to the emergency room. I tried to get her to make an appt for Friday but she said I may not be here as the good lord may take her before then. She just wanted Chapar[facility]a to know what she was experiencing. Disposition Call EMS 911 Now Reason for Disposition Chest pain lasting longer than 5 minutes and pain is crushing, pressure-like, or heavy Chest pain lasting longer than 5 minutes, over 30 years old, and at least one cardiac risk factor (e.g., diabetes mellitus, high blood pressure, high cholesterol, obesity with BMI 30 or higher, smoker, or strong family history of heart disease) Initial Assessment 1. LOCATION: Where does it hurt? In the front and through her chest on left side 2. RADIATION: Does the pain go anywhere else? (e.g., into neck, jaw, arms, back) Radiates down left arm and back. 3. ONSET: When did the chest pain begin? (Minutes, hours or days) Last night 4. PATTERN: Does the pain come and go, or has it been constant since it started? Does it get worse with exertion? Constant but says it hurts 5. DURATION: How long does it last (e.g., seconds, minutes, hours) Constant pain 6. SEVERITY: How bad is the pain? (e.g., Scale 1-10; mild, moderate, or severe) Arm 8/10 7. CARDIAC RISK FACTORS: Do you have any history of heart problems or risk factors for heart disease? (e.g., angina, prior heart attack; diabetes, high blood pressure, high cholesterol, smoker, or strong family history of heart disease) yes 8. PULMONARY RISK FACTORS: Do you have any history of lung disease? (e.g., blood clots in lung, asthma, emphysema, control pills) no 9. CAUSE: What do you think is causing the chest pain? Sure but states that this started after she ate a pack of crackers last night 10. OTHER SYMPTOMS: Do you have any other symptoms? (e.g., dizziness, nausea, vomiting, sweating,fever, difficulty breathing, cough) Sob and vomiting vomiting RAM OFFICER * Telephone Encounter - Cassandra Nelson - 06/08/2025 3:52 PM CST Copied from [facility] #[id number]. Topic: Symptomatic Care >> Jun 08, 2025 3:47 PM Cassandra Gaytan wrote: Has this patient seen any provider (current or former) at the requested clinic in the past? Yes, Select the appropriate age range and symptom Patient has symptoms and is seeking care. Caller Name: Taylor Beaver Callback Number: Telephone Information: Call Notes: chest discomfort that started last night and isnt going away with now arm pain Age Range/Symptom: Adult: 18+ & not High Risk Chest pain, heaviness or discomfort - active (having it now) Is there an encounter open? No Transferred to N line and mauricio answered call. RAM OFFICER documented in this encounter Plan of Treatment Upcoming Encounters Date Type Department Care Team ([facility] st Contact Info) Description 07/08/2025 9:20 AM PROGRAM OFFICER Office Visit [facility] [address] [place] [address] Kori Hernandez FNP [address] [place] [phone] documented as of this encounter Visit Diagnoses Not on filedocumented in this encounter Care Teams Customer Marketing Intern Relationship Specialty Start Date End Date Denisse Chirinos DO [address] [place] [address] PCP - General Family Practice 03/03/23 documented as of this encounter
--- OUTSIDE RECORDS SUMMARY | 2025-06-09 12:00 | XMS_ITS | Clinical Summary ---
Author Organization [facility] Address [address] [facility] Attn: Epic Prelude ADT DIANA ORTIZ [address] Care Team Providers Care Crime Scene Examiner Name Role Phone Denisse Chirinos DO Primary Care Provider [phone]- [phone] Allergies Active Allergy Reactions Criticality Noted Date Comments Codeine Itching,Nausea and Vomiting Low 06/06/20 25 Hydromorphone Hcl Other (See Comments) 06/06/20 25 Medications ondansetron (ZOFRAN ODT) 4 mg Tablet, Rapid DissolveIndication s:Nausea Place 1 Tablet (4 mg) under tongue every 6 hours as needed for Nausea/Emesi s. Dissolve tablet on top of tongue, then swallow with saliva. 30 Tablet 3 09/09/19 25 Active nitroglycerin (NITROSTAT) 0.4 mg Tablet, SublingualIndicati ons:Anginal syndrome Place 1 Tablet (0.4 mg) under tongue every 5 minutes as needed for Chest Pain. 90 Tablet 3 11/09/19 25 Active aspirin (ECOTRIN EC) 81 mg Tablet, Delayed Release (E.C.)Indications: Atherosclerosis of [place] coronary artery of [place] heart, unspecified whether angina present Take 1 Tablet (81 mg) by mouth 2 times daily. 60 Tablet 11 12/08/19 25 Active pantoprazole (PROTONIX) 40 mg Tablet, Delayed Release (E.C.)Indications: Gastroesophageal reflux disease without esophagitis take 1 tablet by mouth once daily 90 Tablet 3 12/21/19 25 Active levothyroxine 112 mcg tablet Take 1 Tablet (112 mcg) by mouth daily in the morning. 90 Tablet 4 01/06/20 25 Active traZODone (DESYREL) 50 mg tabletIndications: Other insomnia Take 1 Tablet (50 mg) by mouth daily at bedtime. 90 Tablet 4 01/06/20 25 Active sertraline (ZOLOFT) 100 mg tabletIndications: Major depressive disorder with single episode, in remission Take 2 Tablets (200 mg) by mouth daily. 200 Tablet 4 01/06/20 25 Active carvediloL (COREG) 3.125 mg tabletIndications: Essential hypertension Take 1 Tablet (3.125 mg) by mouth 2 times daily with meals. 180 Tablet 3 01/06/20 25 Active traMADol (ULTRAM) 50 mg tabletIndications: History of compression fracture of spine TAKE ONE TABLET BY MOUTH EVERY EIGHT hours NEEDED FOR pain. 30 Tablet 04/07/20 25 Active gabapentin (NEURONTIN) 100 mg capsuleIndications :Primary osteoarthritis involving multiple joints,Chronic midline low back pain without sciatica,History of compression fracture of spine Take 1 Capsule (100 mg) by mouth 3 times daily as needed for Pain. 90 Capsule 11 05/18/20 25 Active clobetasol (TEMOVATE) 0.05 % OintmentIndication s:Skin pruritus,Skin eruption Apply to affected area 2 times daily. 30 Gram 2 06/06/20 25 Active hydrOXYzine HCL (ATARAX) 25 mg tabletIndications: Skin pruritus,Skin eruption Take 1 Tablet (25 mg) by mouth 3 times daily as needed for Itching. 30 Tablet 3 06/06/20 25 Active gabapentin (NEURONTIN) 100 mg capsuleIndications :History of compression fracture of spine Take 1 Capsule (100 mg) by mouth 3 times daily as needed for Pain. 90 Capsule 11 11/06/19 25 025 Discontinu ed(Reorder ) clobetasoL (TEMOVATE) 0.05 % Ointment Apply to affected area 2 times daily. 12/30/19 25 025 Discontinu ed(Reorder ) hydrOXYzine HCL (ATARAX) 25 mg tabletIndications: Pruritus TAKE ONE TABLET BY MOUTH THREE TIMES DAILY NEEDED FOR ITCHING. 30 Tablet 3 04/08/20 25 025 Discontinu ed(Reorder ) cefUROXime axetil (CEFTIN) 500 mg tabletIndications: Skin infection Take 1 Tablet (500 mg) by mouth every 12 hours for 14 days, THEN 1 Tablet (500 mg) daily for 7 days. 35 Tablet 04/19/20 25 025 Active Problems Problem Noted Date Diagnosed Date Frail elderly 02/15/2025 History of nonmelanoma skin cancer 02/15/2025 Chronic knee pain after tota l replacement of left knee joint 02/02/2025 Acquired hypothyroidism 01/05/2025 Atherosclerosis of [place] coronary artery of [place] heart 12/07/2024 History of compression fracture of spine 025 Status post dilation of esophageal narrowing Orthostatic syncope 08/26/2024 Recurrent falls 08/26/2024 Esophageal mass 08/26/2024 Dysphagia 08/26/2024 Essential hypertension 08/26/2024 HLD (hyperlipidemia) 08/26/2024 GERD (gastroesophageal reflux disease) Odynophagia 08/26/2024 Chronic pain of left knee 01/29/2023 Primary osteoarthritis involving multiple joints 01/29/2023 Compression fracture of T12 vertebra 01/29/2023 Foraminal stenosis of lumbar region 01/29/2023 Chronic midline low back pain without sciatica 0 01/29/2023 Unsteady gait when walking 01/29/2023 Muscle spasm of back 11/21/2022 Soft tissue injury of back 11/21/2022 Osteoporosis 02/22/2019 Overview (07/17/2023): Status: 'confirmed'; Resolved Problems Problem Noted Date Diagnosed Date Resolved Date Pruritus 01/03/2025 02/02/2025 Itching due to drug 12/07/2024 02/03/20 Aspiration pneumonia 08/26/2024 025 Encounters Date Type Department Care Team Description 06/08/2025 Nurse Triage [facility] [address] [facility] [place] [phone] Denisse Chirinos DO 06/06/2025 8:20 AM HAND LAMINATOR Office Visit [facility] [address] [facility] [place] [address] Kori Hernandez FNP Skin pruritus (Primary Dx); Skin eruption; Skin mole 06/04/2025 Telephone [facility] [address] [place] [address] Brooklyn Carrillo, RN [facility] Primary [facility] After Hours 06/01/2025 Telephone [facility] [address] [place] [address] Kori Hernandez FNP Patient Communication 05/18/2025 9:40 AM HAND LAMINATOR Office Visit [facility] [address] [place] [address] Kori Hernandez FNP Skin eruption (Primary Dx); Pruritus; Skin infection; Primary osteoarthritis involving multiple joints; Chronic midline low back pain without sciatica; History of compression fracture of spine 04/28/2025 Refill [facility] [address] [place] [address] Kori Hernandez FNP Pruritus 04/20/2025 Telephone [facility] [address] [place] [address] Kori Hernandez FNP Remote Monitoring 04/19/2025 8:20 AM HAND LAMINATOR Office Visit [facility] [address] [place] [address] Kori Hernandez FNP Skin infection (Primary Dx); Need for immunization against influenza 04/19/2025 External Device Data [facility] ABSTRACTION Provider, Abstract [facility] [address] [place] [address] Kori Hernandez FNP Pruritus 04/07/2025 Refill [facility] [address] [place] [address] Kori Hernandez FNP History of compression fracture of spine; Itching; Skin eruption from Last 3 Months Immunizations Immunization Administration Dates Next Due INFLUENZA VACCINE HIGH DOSE QUADRIVALENT 65 YR U P PF IM 04/22/2023 INFLUENZA VACCINE HIGH DOSE TRIVALENT SPLIT VIRUS, (65 YR UP), 0.5ML (PF), IM 04/19/2025 Family History Medical History Relation Name Comments Other Father Heart Disease Mother Relation Name Status Comments Father Mother Social History Tobacco Use Types Packs/Day Years Used Date Smoking Tobacco: Never Passive Smoke Exposure: Never Tobacco Cessation:Counseling Given: No Alcohol Use Standard Drinks/Week Comments Not Currently [...] on file Legal Sex Female 4:01 PM HAND LAMINATOR Gender Identity Not on file Sexual Orientation Not on file Last Filed Vital Signs Vital Sign Reading Time Taken Comments Blood Pressure 128/76 06/06/2025 8:24 AM HAND LAMINATOR Pulse 78 06/06/2025 8:24 AM HAND LAMINATOR Temperature 36.8 C (98.3 F) 06/06/2025 8:24 AM HAND LAMINATOR Respiratory Rate 18 06/06/2025 8:24 AM HAND LAMINATOR Oxygen Saturation 99% 06/06/2025 8:24 AM HAND LAMINATOR Inhaled Oxygen Concentration - - Weight 59.8 kg (131 lb 12.8 oz) 06/06/2025 8:24 AM HAND LAMINATOR Height 165.1 cm (5' 5 ) 06/06/2025 8:24 AM HAND LAMINATOR Body Mass Index 21.93 06/06/2025 8:24 AM HAND LAMINATOR Plan of Treatment Upcoming Encounters Date Type Department Care Team (Late st Contact Info) Description 07/08/2025 9:20 AM HAND LAMINATOR Office Visit [facility] Medicine [place] [address] [place] [address] Kori Hernandez, [facility] [address] [place] [address] Health Maintenance Due Date Last Done Comments ZOSTER VACCINE (1 of 2) 1988 OSTEOPOROSIS SCREENING 2003 DTAP/TDAP/TD VACCINES (1 - Tdap) 11/30/2005 11/30/19 06 RSV VACCINE (60+ or ) (1 - 1-dose 75+ series) 2013 PNEUMOCOCCAL VACCINE 50+ YEA RS (2 of 2 - PCV) 04/24/2018 04/24/2017 Medicare Advantage (ID) Preventative Visit/Annual Wellness Visit 06/16/2024 10/30/2023 INFLUENZA VACCINE Completed 04/19/2025, , 06/05/2022, Additional history exists Insurance [employer] [place] [facility] Address: [facility] [id number] [place] [address] Advance Directives For more information, please contact: [phone] * NO CPR (In Event of Cardiopulmonary Arrest) (Latest Code Status on File) Date Activated Date Inactivated Comments 08/26/2024 8:55 PM 09/01/2024 8:12 PM Question Answer Comments Mechanical Ventilation (for respiratory distress) - Invasive (i.e. intubation): No Mechanical Ventilation (for respiratory distress) - Non-Invasive (i.e. BiPAP, CPAP): Yes * Full Code Date Activated Date Inactivated Comments 08/26/2024 12:32 AM 08/26/2024 8:55 PM Care Teams Crime Scene Examiner Relationship Specialty Start Date End Date Denisse Chirinos DO [address] [place] [address] PCP - General Family Practice 03/03/23
[2025-06-09 12:38] LABS: Hematocrit 36.3 % (36-47); Hemoglobin 11.10 g/dL (11.27-16.99); Mean Corpuscular HGB Conc 30.6 g/dL (30-55); Mean Corpuscular Hemoglobin 28.5 pg (27-33); Mean Corpuscular Volume 93.1 fl (85-98); Nucleated Red Blood Cells % 0 %; Platelet Count 194 10^3/cmm (157-399); Red Blood Count 3.90 10^6/uL (3.85-5.65); White Blood Count 7.70 10^3/uL (3.29-11.43)
[2025-06-09 12:43] LABS: INR 0.91 (0.8-1.2); Prothrombin Time 12.90 SECONDS (12.1-14.9)
[2025-06-09 12:44] LABS: Partial Thromboplastin Time 29.4 SECONDS (23.9-36.7)
[2025-06-09 12:49] LABS: Troponin(5th) Baseline 19 ng/L (0-10)
--- NOTE | 2025-06-09 12:59 | ECG_ITS ---
[facility] Test Date: 2025-06-09 Pat Name: Taylor Beaver Department: Room: Gender: Female Mba Internship: : 1940 Requested By: Marii Kim Order Number: [id number] Reading MD: DESTINY LALA Measurements Intervals [place] Rate: 78 P: 64 NM: 137 QRS: 19 QRSD: 138 T: 53 QT: 469 QTc: 535 Interpretive Statements SINUS RHYTHM INDETERMINATE AXIS RIGHT BUNDLE BRANCH BLOCK [120+ ms QRS DURATION, UPRIGHT V1, 40+ ms S IN I/aVL/V4/V5/V6] Compared to ECG 06/09/2025 11:53:42 Indeterminate axis now present Electronically Signed On 06-12-2025 23:26:30 [employer] by DESTINY LALA [id number] [id number]
[2025-06-09 13:01] VITALS: BP 140/85; PULSE 82; O2SAT 95
[2025-06-09 13:11] LABS: Alanine Aminotransferase 9 U/L (0-33); Albumin Level 4.0 g/dL (3.5-5.2); Alkaline Phosphatase 78 U/L (35-105); Anion Gap 12.9 (5-19); Aspartate Amino Transferase 15 U/L (0-32); Blood Urea Nitrogen 10 mg/dL (8-23); Calcium 8.9 mg/dL (8.5-10.5); Carbon Dioxide 28 mmol/L (22-29); Chloride 105 mmol/L (98-107); Globulin 2.7 g/dL (1.3-4.6); Glucose 118 mg/dL (65-115); Lipase 20 U/L (13-60); NT Pro B Type Natriuretic Pept 317 pg/mL (0-450); Osmolality Calculated 294 mOsm/kg (285-295); Potassium 3.9 mmol/L (3.5-5.1); Sodium 142 mmol/L (136-145); Total Protein 6.7 g/dL (6.6-8.7)
[2025-06-09 16:10] VITALS: BP 137/70; PULSE 70; O2SAT 91
--- NOTE | 2025-06-09 17:59 | ECG_ITS ---
[facility]25-[facility]-09 Pat Name: Taylor Beaver Department: Room: EDIP Gender: Female Architect Intern: : 1940 Requested By: Marii Kim Order Number: [id number] Reading MD: DESTINY LALA Measurements Intervals [place] Rate: 73 P: 89 SD: 152 QRS: 48 QRSD: 136 T: 81 QT: 459 QTc: 508 Interpretive Statements SINUS RHYTHM RIGHT BUNDLE BRANCH BLOCK [120+ ms QRS DURATION, UPRIGHT V1, 40+ ms S IN I/aVL/V4/V5/V6] Compared to ECG 06/09/2025 12:55:33 Indeterminate axis no longer present Electronically Signed On 06-12-2025 23:25:30 [employer] by DESTINY LALA [email or web address] [id number]
[2025-06-09] MEDS: ondansetron 2 mg/ML SDV 2 mL 4 MG IVP (18:08)
[2025-06-09 18:39] LABS: Troponin 5 6HR 19.64 ng/L (0-10); Troponin 5 6HR Delta 0.64 ng/L (0-12)
--- NOTE | 2025-06-09 19:05 | PM.HP ---
Providers/Chief Complaint Admitting Physician: Juan Parisi MD Primary Care Provider: JOSAFAT Ojeda Chief Complaint: chest pain History of Present Illness Taylor Beaver is a 84 year old female with prior medical history of HTN, HLD, CAD, DM 2, back and hip pain, left hip replacement and knee joint, syncope, chest pain, laminectomy, and hypothyroidism presenting with complaints of chest pain. Patient reports central chest pain and pressure started yesterday and radiates to her arms bilaterally, more pronounced in her left arm. EMS was called today and she was transported to [facility] ED for assessment. And route, she was administered aspirin, morphine, nitro spray X2, Nitropaste, and Zofran. Pain improved prior to arrival. In the ED, vitals unremarkable with exception of O2 saturation 91% on room air. WBC 7.70, Hgb 11.10, PLT 194. BUN and creatinine WNL. AST/ALT/ALP WNL. Troponin 19 > 19.67 > 19.64. BNP WNL at 317. EKG; sinus rhythm with no acute abnormalities X2. CXR; no acute findings, chronic lung changes, see full results. Will admit to the hospitalist service for further evaluation and treatment. Review of Systems General: Reports: 10 or more systems reviewed and unremarkable except in HPI and below Const: Denies: fever(s), chills or body aches Eyes: Denies: change in vision Card: Reports: chest pain; Denies: dyspnea on exertion or orthopnea Resp: Denies: dyspnea, productive cough or wheezing GI: Denies: abdominal pain, nausea or vomiting Musc: Denies: neck pain, back pain, extremity pain, joint pain, joint swelling or limited range of motion Skin/Breast: Denies: changes in skin color or dry skin Neuro: Denies: numbness in extremities or weakness in extremities Psych: Denies: anxiety or depression Brayden/Lymph: Denies: easy bruising or easy bleeding Medications/Allergies Home Medications ?Medication ?Instructions ?Recorded ?Confirmed ?Last Taken ?Type pantoprazole 40 mg tablet,delayed 40 mg PO QAM 04/30/22 06/09/25 06/09/25 History release levothyroxine 112 mcg tablet 112 mcg PO QAM 08/04/22 06/09/25 06/09/25 History sertraline 100 mg tablet 200 mg PO DAILY 07/15/23 06/09/25 06/09/25 History trazodone 50 mg tablet 50 mg PO BEDTIME PRN Sleep 07/15/23 06/09/25 11/13/23 History cockup splint #1 ea 07/30/23 06/09/25 Unknown Rx gabapentin 100 mg capsule 100 mg PO TID PRN Pain 11/18/24 06/09/25 Unknown History ondansetron 4 mg disintegrating 4 mg PO Q6H PRN Nausea And Vomiting 11/18/24 06/09/25 Unknown History tablet carvedilol 3.125 mg tablet 3.125 mg PO BID 30 days #60 tabs 11/19/24 06/09/25 06/09/25 Rx nitroglycerin 0.4 mg sublingual 0.4 mg sublingual Q5M PRN Chest 11/19/24 06/09/25 Unknown Rx tablet Pain 30 days #30 tabs tramadol 50 mg tablet 50 mg PO Q8H PRN Pain 11/19/24 06/09/25 Unknown History lisinopril 20 mg tablet 20 mg PO DAILY #30 tabs 11/23/24 06/09/25 06/09/25 Rx acetaminophen 500 mg tablet 1,000 mg PO Q6H PRN Pain 06/09/25 06/09/25 Unknown History Allergies Allergy/AdvReac Type Severity Reaction Status Date / Time No Known Allergies Allergy Verified 01/06/24 14:09 PFSH Acute PFSH: Medical History History of CAD (coronary artery disease) History of nephrolithiasis History of hypothyroidism History of hyperlipidemia History of depression History of hypertension History of type 2 diabetes mellitus Lumbar stenosis with neurogenic claudication Surgical History Post-operative state History of heart artery stent History of back surgery History of left hip replacement Family History Mother CAD (coronary artery disease) Social History Smoking and tobacco/nicotine status: never used tobacco/nicotine Alcohol intake: never Substance/Drug Use: never Vitals/I&O/Wt Last Vital Signs Temp 98.1 F 06/09/25 11:48 Pulse 70 06/09/25 16:10 Resp 18 06/09/25 11:48 BP 137/70 06/09/25 16:10 Pulse Ox 91 06/09/25 16:10 O2 Del Method Room Air 06/09/25 18:09 O2 Flow Rate 2 06/09/25 13:01 06/09/25 06/09/25 06/09/25 06:59 14:59 22:59 Intake Total 0 / 0 Balance 0 / 0 Weight last 48 hrs Weight 59.421 kg Physical Exam Const: COMMON NORMALS: no acute distress and patient oriented x3 HENMT: COMMON NORMALS: normocephalic HEAD & SCALP: normocephalic Chest: COMMONS NORMALS: normal inspection of the chest Resp: COMMON NORMALS: normal respiratory effort, No retractions, No use of accessory muscles and clear to auscultation bilaterally AUSCULTATION: clear to auscultation bilaterally Cardio: COMMON NORMALS: regular rate, regular rhythm, S1 normal heart sound present and S2 normal heart sound present RATE: regular rate RHYTHM: regular rhythm HEART SOUNDS: S1 normal heart sound present and S2 normal heart sound present GI: COMMON NORMALS: Normal to inspection, nondistended, normoactive bowel sounds present and Soft to palpation PALPATION: Yes Soft to palpation Extremity: COMMON NORMALS: capillary refill normal, no calf tenderness and no pedal edema Neuro: COMMON NORMALS: patient oriented x3 Psych: COMMON NORMALS: mental status grossly normal Data 06/09/25 12:19 06/09/25 12:19 A&P Assessment and plan 1. Chest pain: Troponins 19 > 19.67 > 19.64 CXR; no acute findings, chronic lung changes, see full results Repeat troponin in the morning EKG; sinus rhythm with no acute abnormalities x2 Telemetry Pain management O2 91%, supplemental O2 to keep saturations greater than 92% Pulse oximetry Observation status 2. History of hypothyroidism: Continue home levothyroxine 3. History of depression: Continue home sertraline 4. History of hypertension: 137/70, HR 70 Continue home carvedilol 5. Chronic pain: History of laminectomy and hip replacement Continue home gabapentin Pain management as needed PDMP PDMP Reviewed: Not Reviewed Attestations Medical Necessity Statement*: Patient not expected to stay greater than 2 midnights. After chest pain rule out patient may possibly discharge tomorrow 06/10/2025. Diagnoses Chest pain R07.9 History of hypothyroidism Z86.39 History of depression Z86.59 History of hypertension Z86.79 Chronic pain G89.29
--- NOTE | 2025-06-09 19:13 | PC.NURSE ---
bedside report given to rodney hester RN.
[2025-06-09] MEDS: pantoprazole 40 mg SDV IVP (20:42)
[2025-06-09 20:48] VITALS: BP 192/138; PULSE 76; RESP 21; O2SAT 97
[2025-06-10] VITALS (10 sets, daily range): BP systolic 89–152; BP diastolic 46–78; PULSE 61–74; RESP 17–19; TEMP 36.3–36.9; O2SAT 88–96; BMI 22.0
--- NOTE | 2025-06-10 04:54 | PC.NURSE ---
Called adryan vázquez for the two medications levothyroxine and zoloft that are not loaded in our pixis she is bringing them down
--- NOTE | 2025-06-10 06:17 | PC.NURSE ---
patient reports that her throat is on fire notified dr arias he gave verbal order to give GI cocktail. order entered
[2025-06-10] MEDS: lidocaine 2% viscous 15 ML, aluminum-mag hydrox-simethicon 30 ML, sucralfate oral liq 1 GM PO (06:19)
[2025-06-10 07:11] LABS: Hematocrit 37.0 % (36-47); Hemoglobin 11.60 g/dL (11.27-16.99); Mean Corpuscular HGB Conc 31.4 g/dL (30-55); Mean Corpuscular Hemoglobin 29.0 pg (27-33); Mean Corpuscular Volume 92.5 fl (85-98); Nucleated Red Blood Cells % 0 %; Platelet Count 200 10^3/cmm (157-399); Red Blood Count 4.00 10^6/uL (3.85-5.65); White Blood Count 6.48 10^3/uL (3.29-11.43)
[2025-06-10 07:24] LABS: Anion Gap 16.8 (5-19); Blood Urea Nitrogen 13 mg/dL (8-23); Calcium 8.8 mg/dL (8.5-10.5); Carbon Dioxide 26 mmol/L (22-29); Chloride 100 mmol/L (98-107); Glucose 97 mg/dL (65-115); Magnesium 2.1 mg/dL (1.7-2.3); Osmolality Calculated 288 mOsm/kg (285-295); Potassium 3.8 mmol/L (3.5-5.1); Sodium 139 mmol/L (136-145); Troponin T (5th) Once 20 ng/L (0-10)
[2025-06-10 07:25] LABS: Estmated Average Glucose 117; Hemoglobin A1C 5.7 % (4.0-6.0)
--- NOTE | 2025-06-10 08:30 | P.PN_ITS ---
Subjective 2 Subjective: Taylor Beaver is a 84 year old female with prior medical history of HTN, HLD, CAD, DM 2, back and hip pain, left hip replacement and knee joint, syncope, chest pain, laminectomy, and hypothyroidism presenting with complaints of chest pain. Patient reports central chest pain and pressure started yesterday and radiates to her arms bilaterally, more pronounced in her left arm. EMS was called today and she was transported to [facility] ED for assessment. And route, she was administered aspirin, morphine, nitro spray X2, Nitropaste, and Zofran. Pain improved prior to arrival. In the ED, vitals unremarkable with exception of O2 saturation 91% on room air. WBC 7.70, Hgb 11.10, PLT 194. BUN and creatinine WNL. AST/ALT/ALP WNL. Troponin 19 > 19.67 > 19.64. BNP WNL at 317. EKG; sinus rhythm with no acute abnormalities X2. CXR; no acute findings, chronic lung changes, see full results. Will admit to the hospitalist service for further evaluation and treatment. 06/10/25: Patient resting in bed and rep orts feeling somewhat improved but also has persistent complaints of intermittent chest pain 12/23. She reports that at times it goes from her left radial arm up and then bilateral arms. Her troponins have been steady around 20 and CXR shows no acute findings. She is on 2-3 L here in the ER and will get a bed soon. Patient reports new GI history from her approximately 2015 in [place]/or [facility] where she had a surgery that altered either her esophagus or stomach. She reports that this was to repair her symptoms of nausea, vomiting, and food intolerance. She reports that she was then seen by Dr. Shlutz at [facility] for a scope and they could see the surgical intervention but advised there was an abnormality that could cause her discomfort. We would like to rule this GI finding out as part of her workup. I have requested outside records from [facility]. Pending. Vitals/I&O/Wt Last Vital Signs Temp 97.3 F L 06/10/25 16:00 Pulse 62 06/10/25 16:00 Resp 19 H 06/10/25 16:00 BP 89/46 06/10/25 16:00 Pulse Ox 90 06/10/25 16:00 O2 Del Method Room Air 06/10/25 12:16 O2 Flow Rate 3 06/09/25 20:48 Weight last 48 hrs Weight 59.988 kg Weight 59.421 kg Physical Exam 2 Const: COMMON NORMALS: no acute distress and patient oriented x3 HENMT: COMMON NORMALS: normocephalic HEAD & SCALP: normocephalic Chest: COMMONS NORMALS: normal inspection of the chest Resp: COMMON NORMALS: normal respiratory effort, No retractions, No use of accessory muscles and clear to auscultation bilaterally AUSCULTATION: clear to auscultation bilaterally Cardio: COMMON NORMALS: regular rate, regular rhythm, S1 normal heart sound present and S2 normal heart sound present RATE: regular rate RHYTHM: r egular rhythm HEART SOUNDS: S1 normal heart sound present and S2 normal heart sound present GI: COMMON NORMALS: Normal to inspection, nondistended, normoactive bowel sounds present and Soft to palpation PALPATION: Yes Soft to palpation Extremity: COMMON NORMALS: capillary refill normal, no calf tenderness and no pedal edema Neuro: COMMON NORMALS: patient oriented x3 Psych: COMMON NORMALS: mental status grossly normal Data 06/10/25 06:52 06/10/25 06:52 A&P Assessment and plan 1. Chest pain: Troponins 19 > 19.67 > 19.64 CXR; no acute findings, chronic lung changes, see full results EKG; sinus rhythm with no acute abnormalities x2 Telemetry Pain management O2 91%, supplemental O2 to keep saturations greater than 92% Pulse oximetry Observation status Ruling out prior history of a complicated GI procedure in [place] Patient reports that she had a scope done at [facility] and they advised that there were abnormalities Awaiting outside records from OSH 2. History of hypothyroidism: Continue home levothyroxine 3. History of depression: Continue home sertraline 4. History of hypertension: 137/70, HR 70 Continue home carvedilol 5. Chronic pain: History of laminectomy and hip replacement Continue home gabapentin Pain management as needed PDMP PDMP Reviewed: Not Reviewed Attestations 2 Medical Necessity Statement*: Patient not expected to cross an additional 2 midnights. Patient is stable for now but we are still investigating her chest pain rule out, possibly of GI etiology as cardiac diagnostics have been unremarkable. Diagnoses Chest pain R07.9 History of hypothyroidism Z86.39 History of depression Z86.59 History of hypertension Z86.79 Chronic pain G89.29
--- NOTE | 2025-06-10 17:05 | PC.NURSE ---
Patients drivers license is located in paper light chart
[2025-06-10] MEDS: pantoprazole 40 mg SDV IVP (17:50)
[2025-06-10] MEDS: ondansetron 2 mg/ML SDV 2 mL 4 MG IVP (18:00)
[2025-06-10] MEDS: nitroglycerin 1 gm/inch oint Pkt 1 INCH TOPICAL (18:05)
--- NOTE | 2025-06-10 21:21 | PC.NURSE ---
Addendum entered by Katiana Arriaga RN 06/11/25 01:00: made aware of patient statements and refusal of telemetry. Patient endorsing pain in left wrist stating she normally takes 5-10 tylenol at once . Each pill is 500 mg, patient educated that that exceeds the daily amount and is at risk for toxcitiy. Patient stated her pain doctor said the same thing but If i don't take the pills my body will react . supervisor maintenance made aware of comments being made. Instructed to monitor patient. Original Note: ORE PUNCHER reported to nurse that patient is stating I wish i can go to sleep and not wake up . Patient is also asking ORE PUNCHER not to report low BP to nurse. This nurse went to assess patient. Per patient she denies suicidal ideation and attempts as I will not do that it is a sin. I am just wanting to go home [points to mile] There is to much sin in this world . At this time patient endorsing wishing that kiran takes her but has no plan or desire to take her own life.
[2025-06-11] VITALS (7 sets, daily range): BP systolic 98–126; BP diastolic 51–83; PULSE 56–66; RESP 14–18; TEMP 36–36.9; O2SAT 87–96; BMI 22.4
[2025-06-11 02:39] LABS: Hematocrit 30.9 % (36-47); Hemoglobin 9.50 g/dL (11.27-16.99); Mean Corpuscular HGB Conc 30.7 g/dL (30-55); Mean Corpuscular Hemoglobin 28.6 pg (27-33); Mean Corpuscular Volume 93.1 fl (85-98); Nucleated Red Blood Cells % 0 %; Platelet Count 202 10^3/cmm (157-399); Red Blood Count 3.32 10^6/uL (3.85-5.65); White Blood Count 6.90 10^3/uL (3.29-11.43)
[2025-06-11 03:02] LABS: Anion Gap 10.8 (5-19); Blood Urea Nitrogen 22 mg/dL (8-23); Calcium 8.7 mg/dL (8.5-10.5); Carbon Dioxide 29 mmol/L (22-29); Chloride 103 mmol/L (98-107); Glucose 128 mg/dL (65-115); Osmolality Calculated 293 mOsm/kg (285-295); Potassium 3.8 mmol/L (3.5-5.1); Sodium 139 mmol/L (136-145)
--- NOTE | 2025-06-11 05:40 | PC.NURSE ---
Patient has scheduled this AM carvedilol and lisinopril. Patient BP is 14/63 but her HR is 50. Per Dr. arce hold both.
--- NOTE | 2025-06-11 08:29 | PM.CONSULT ---
Providers/Reason For Consult Consulting Physician/Specialty*: Agusto Mills MD/ Cardiology Reason for Consult*: Chest pain Requesting Physician: Geno De León Attending Physician: Geno De León, AIRPLANE NAVIGATOR, SENIOR ARCHITECT/DESIGN MANAGER Primary Care Provider: JOSAFAT Ojeda History of Present Illness History of Present Illness Taylor Beaver is a 84 year old female with past medical history of hypothyroidism, coronary artery disease who presented to the hospital with chest discomfort. According to patient has been having chest discomfort episodes for a long time. However they have worsened recently. Has noticed some association with food. Also feels indigestion. Troponins have not significantly increased. EKG not showing acute ischemic changes. EKG sinus rhythm with right bundle branch block. Review of Systems Card: Reports: chest pain Medications/Allergies Home Medications ?Medication ?Instructions ?Recorded ?Confirmed ?Last Taken ?Type pantoprazole 40 mg tablet,delayed 40 mg PO QAM 04/30/22 06/09/25 06/09/25 History release levothyroxine 112 mcg tablet 112 mcg PO QAM 08/04/22 06/09/25 06/09/25 History sertraline 100 mg tablet 200 mg PO DAILY 07/15/23 06/09/25 06/09/25 History trazodone 50 mg tablet 50 mg PO BEDTIME PRN Sleep 07/15/23 06/09/25 11/13/23 History cockup splint #1 ea 07/30/23 06/09/25 Unknown Rx gabapentin 100 mg capsule 100 mg PO TID PRN Pain 11/18/24 06/09/25 Unknown History ondansetron 4 mg disintegrating 4 mg PO Q6H PRN Nausea And Vomiting 11/18/24 06/09/25 Unknown History tablet carvedilol 3.125 mg tablet 3.125 mg PO BID 30 days #60 tabs 11/19/24 06/09/25 06/09/25 Rx nitroglycerin 0.4 mg sublingual 0.4 mg sublingual Q5M PRN Chest 11/19/24 06/09/25 Unknown Rx tablet Pain 30 days #30 tabs tramadol 50 mg tablet 50 mg PO Q8H PRN Pain 11/19/24 06/09/25 Unknown History lisinopril 20 mg tablet 20 mg PO DAILY #30 tabs 11/23/24 06/09/25 06/09/25 Rx acetaminophen 500 mg tablet 1,000 mg PO Q6H PRN Pain 06/09/25 06/09/25 Unknown History Allergies Allergy/AdvReac Type Severity Reaction Status Date / Time No Known Allergies Allergy Verified 01/06/24 14:09 Current Medications Generic Name Dose Route Start Last Admin Trade Name Freq PRN Reason Stop Dose Admin Acetaminophen 1,000 mg 06/09/25 19:23 06/10/25 20:59 Acetaminophen 500 Mg Tablet PO 1,000 mg Q6H PRN Administration PAIN Carvedilol 3.125 mg 06/10/25 05:00 06/11/25 05:10 Carvedilol 3.125 Mg Tablet PO Not Given BID IDA Levothyroxine Sodium 112 mcg 06/10/25 05:00 06/11/25 04:47 Levothyroxine 112 Mcg Tablet PO 112 mcg QAM IDA Administration Lisinopril 20 mg 06/10/25 05:00 06/11/25 05:10 Lisinopril 20 Mg Tablet PO Not Given DAILY IDA Nitroglycerin 1 inch 06/10/25 17:15 06/11/25 04:51 Nitroglycerin 1 Gm/Inch Oint Pkt TOPICAL Not Given Q6H IDA Ondansetron HCl 4 mg 06/09/25 19:13 06/10/25 18:00 Ondansetron 2 Mg/Ml Sdv 2 Ml IVP 4 mg Q8H PRN Administration vomiting, or N/V if npo Pantoprazole Sodium 40 mg 06/09/25 19:15 06/10/25 17:50 Pantoprazole 40 Mg Sdv IVP 40 mg Q24H IDA Administration Sertraline HCl 200 mg 06/10/25 05:00 06/11/25 04:47 Sertraline 100 Mg Tablet PO 200 mg DAILY IDA Administration Trazodone HCl 50 mg 06/09/25 19:23 06/10/25 20:59 Trazodone 50 Mg Tablet PO 50 mg BEDTIME PRN Administration SLEEP PFSH Acute PFSH: Medical History History of CAD (coronary artery disease) History of nephrolithiasis History of hypothyroidism History of hyperlipidemia History of depression History of hypertension History of type 2 diabetes mellitus Lumbar stenosis with neurogenic claudication Surgical History Post-operative state History of heart artery stent History of back surgery History of left hip replacement Family History Mother CAD (coronary artery disease) Social History Smoking and tobacco/nicotine status: never used tobacco/nicotine Alcohol intake: never Substance/Drug Use: never Vitals/I&O/Wt Last Vital Signs Temp 96.8 F L 06/11/25 07:36 Pulse 56 L 06/11/25 08:03 Resp 16 06/11/25 08:03 BP 126/54 06/11/25 07:36 Pulse Ox 96 06/11/25 08:03 O2 Del Method Nasal Cannula 06/11/25 08:03 O2 Flow Rate 2 06/11/25 08:03 06/10/25 06/11/25 06/11/25 22:59 06:59 14:59 Intake Total 180 / 180 Balance 180 / 180 Weight last 48 hrs Weight 134 lb 11.239 oz Weight 134 lb Weight 132 lb 4 oz Weight 131 lb Physical Exam Narrative: GENERAL: Patient is alert, awake and oriented x3. [] NECK: No jugular vein distension. [] HEENT: No cyanosis. No icterus. No pallor. [] HEART: Regular S1 and S2. No murmur, rub or gallop. [] LUNGS: Clear to auscultate bilaterally. [] CENTRAL NERVOUS SYSTEM: Grossly nonfocal. [] EXTREMITIES: Lower extremities with 1+ edema bilaterally. Data 06/12/25 02:53 06/12/25 02:53 A&P Assessment and plan 1. Chest pain: 2. History of CAD (coronary artery disease): 3. History of hyperlipidemia: 4. History of hypertension: Plan: Patient's chest pain has mostly atypical features. However given her history of CAD and risk factors, we will proceed with ruling out ischemia with Lexiscan. Order echocardiogram Thank you for involving us with the care of this patient. Please call with questions. PDMP PDMP Reviewed: Not Reviewed Consult Attestations Medical Necessity Statement: Care expected to cross 2 midnights. Coding Level of Care Code Acute Code for Chg Fwd Diagnoses Chest pain R07.9 History of CAD (coronary artery disease) Z86.79 History of hyperlipidemia Z86.39 History of hypertension Z86.79
--- NOTE | 2025-06-11 13:00 | P.PN_ITS ---
Subjective 2 Subjective: Taylor Beaver is a 84 year old female with prior medical history of HTN, HLD, CAD, GERD, recurrent falls, esophageal mass, DM 2, back and hip pain, left hip replacement and knee joint, syncope, chest pain, laminectomy, and hypothyroidism presenting with complaints of chest pain. Patient reports central chest pain and pressure started yesterday and radiates to her arms bilaterally, more pronounced in her left arm. EMS was called today and she was transported to [facility] ED for assessment. And route, she was administered aspirin, morphine, nitro spray X2, Nitropaste, and Zofran. Pain improved prior to arrival. In the ED, vitals unremarkable with exception of O2 saturation 91% on room air. WBC 7.70, Hgb 11.10, PLT 194. BUN and creatinine WNL. AST/ALT/ALP WNL. Troponin 19 > 19.67 > 19.64. BNP WNL at 317. EKG; sinus rhythm with no acute abnormalities X2. CXR; no acute findings, chronic lung changes, see full results. Will admit to the hospitalist service for further evaluation and treatment. 06/10/25: Patient resting in bed and rep orts feeling somewhat improved but also has persistent complaints of intermittent chest pain 12/23. She reports that at times it goes from her left radial arm up and then bilateral arms. Her troponins have been steady around 20 and CXR shows no acute findings. She is on 2-3 L here in the ER and will get a bed soon. Patient reports new GI history from her approximately 2015 in [place]/or [facility] where she had a surgery that altered either her esophagus or stomach. She reports that this was to repair her symptoms of nausea, vomiting, and food intolerance. She reports that she was then seen by Dr. Shultz at [facility] for a scope and they could see the surgical intervention but advised there was an abnormality that could cause her discomfort. We would like to rule this GI finding out as part of her workup. I have requested outside records from [facility]. Pending. 06/11/2025; patient is resting comfortab ly. Dr. Mills with cardiology consulted is reviewing her case and patient might have a stress test on 06/13/2025. Medical records from [facility] have been received and reviewed for GI considerations as we complete chest pain rule out: History Patient has history of GERD, esophageal mass, throat cancer. 2014 Patient treated for achalasia surgically (Procedure done in [place]). Patient reports she did not have a good postop outcome. Spoke with [facility] gastroenterology reported it appeared she had achalasia status post Heller with what would be suspected to be a blown out esophagus but they did not have images to personally review. They noted that achalasia is known to have an increased complication rate of squamous cell carcinoma... suspected aspiration pneumonia secondary to achalasia with possible esophageal mass. Upper endoscopy was performed to further elucidate this and guide management. 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 - [facility]; esophagus moderately torturous, f luid found in the middle third of the esophagus, the lumen of the middle third of the esophagus and lower third of the esophagus was mildly dilated, the exam of the esophagus was otherwise normal, 5 cm hiatal hernia present, exam of the stomach was otherwise normal, examined duodenum was normal. No specimens collected. Tolerated without complication. ?Patient was not able to resume normal diet but instead a full liquid diet. No evidence of esophageal mass. Patient discharged to SNF with recommendation to follow-up outpatient - Patient had poor nutrition due to swal lowing issues for months, protein malnutrition, lethargy, weakness. Vitals/I&O/Wt Last Vital Signs Temp 96.8 F L 06/11/25 07:36 Pulse 64 06/11/25 16:00 Resp 16 06/11/25 16:00 BP 102/83 06/11/25 16:00 Pulse Ox 89 L 06/11/25 16:00 O2 Del Method Nasal Cannula 06/11/25 08:03 O2 Flow Rate 2 06/11/25 08:03 06/11/25 06/11/25 06/11/25 06:59 14:59 22:59 Intake Total 180 / 180 480 / 480 Balance 180 / 180 480 / 480 Weight last 48 hrs Weight 61.1 kg Weight 60.781 kg Weight 59.988 kg Physical Exam 2 Const: COMMON NORMALS: no acute distress and patient oriented x3 HENMT: COMMON NORMALS: normocephalic HEAD & SCALP: normocephalic Chest: COMMONS NORMALS: normal inspection of the chest Resp: COMMON NORMALS: normal respiratory effort, No retractions, No use of accessory muscles and clear to auscultation bilaterally AUSCULTATION: clear to auscultation bilaterally Cardio: COMMON NORMALS: regular rate, regular rhythm, S1 normal heart sound present and S2 normal heart sound present RATE: regular rate RHYTHM: r egular rhythm HEART SOUNDS: S1 normal heart sound present and S2 normal heart sound present GI: COMMON NORMALS: Normal to inspection, nondistended, normoactive bowel sounds present and Soft to palpation PALPATION: Yes Soft to palpation Extremity: COMMON NORMALS: capillary refill normal, no calf tenderness and no pedal edema Neuro: COMMON NORMALS: patient oriented x3 Psych: COMMON NORMALS: mental status grossly normal Data 06/11/25 02:17 06/11/25 02:17 A&P Assessment and plan 1. Chest pain: Troponins 19 > 19.67 > 19.64 CXR; no acute findings, chronic lung changes, see full results EKG; sinus rhythm with no acute abnormalities x2 Telemetry Pain management O2 91%, supplemental O2 to keep saturations greater than 92% Pulse oximetry Observation status Ruling out prior history of a complicated GI procedure in [place] Patient reports that she had a scope done at [facility] and they advised that there were abnormalities Awaiting outside records from OSH 2. History of hypothyroidism: Continue home levothyroxine 3. History of depression: Continue home sertraline 4. History of hypertension: 137/70, HR 70 Continue home carvedilol 5. Chronic pain: History of laminectomy and hip replacement Continue home gabapentin Pain management as needed PDMP PDMP Reviewed: Not Reviewed Attestations 2 Medical Necessity Statement*: Patient not expected to cross an additional 2 midnights. Patient is stable for now but we are still investigating her chest pain rule out, possibly of GI etiology as cardiac diagnostics have been unremarkable. Stress test with cardiology planning for Friday. Diagnoses Chest pain R07.9 History of hypothyroidism Z86.39 History of depression Z86.59 History of hypertension Z86.79 Chronic pain G89.29
[2025-06-11] MEDS: pantoprazole 40 mg SDV IVP (18:32)
[2025-06-11] MEDS: nitroglycerin 1 gm/inch oint Pkt 1 INCH TOPICAL (21:48)
[2025-06-12] VITALS (10 sets, daily range): BP systolic 93–194; BP diastolic 55–89; PULSE 58–70; RESP 18–20; TEMP 36.3–36.7; O2SAT 92–96
[2025-06-12 03:19] LABS: Hematocrit 31.6 % (36-47); Hemoglobin 9.60 g/dL (11.27-16.99); Mean Corpuscular HGB Conc 30.4 g/dL (30-55); Mean Corpuscular Hemoglobin 28.3 pg (27-33); Mean Corpuscular Volume 93.2 fl (85-98); Nucleated Red Blood Cells % 0 %; Platelet Count 201 10^3/cmm (157-399); Red Blood Count 3.39 10^6/uL (3.85-5.65); White Blood Count 5.74 10^3/uL (3.29-11.43)
[2025-06-12 03:35] LABS: Anion Gap 13.4 (5-19); Blood Urea Nitrogen 19 mg/dL (8-23); Calcium 8.4 mg/dL (8.5-10.5); Carbon Dioxide 28 mmol/L (22-29); Chloride 103 mmol/L (98-107); Glucose 145 mg/dL (65-115); Osmolality Calculated 297 mOsm/kg (285-295); Potassium 3.4 mmol/L (3.5-5.1); Sodium 141 mmol/L (136-145)
[2025-06-12] MEDS: nitroglycerin 1 gm/inch oint Pkt 1 INCH TOPICAL ×4 (05:45→22:24)
[2025-06-12] MEDS: alum-mag-hydroxide-sime 30 mL UDC PO (07:29)
[2025-06-12 09:56] LABS: Troponin T (5th) Once 16 ng/L (0-10)
--- NOTE | 2025-06-12 10:03 | USCV_ITS ---
Taylor Beaver Age: 84 Gender: F : 1940 Exam Date: 06/12/2025 18:19 Ordering Phys: Agusto Mills M.D ([email or web address]) Technologist: Quique Seymour [place] [facility] [place]: chest pain BP: 133 / 62 HR: 69 Rhythm: Sinus Technical Quality: Adequate MEASUREMENTS (Male / Female) Normal Values 2D ECHO LV Diastolic Diameter PLAX 4.6 cm 4.2 - 5.9 / 3.9 - 5.3 cm IVS Diastolic Thickness 0.8 cm 0.6 - 1.0 / 0.6 - 0.9 cm IVS Systolic Thickness 1.3 cm LVPW Diastolic Thickness 0.9 cm 0.6 - 1.0 / 0.6 - 0.9 cm LVPW Systolic Thickness 0.9 cm LVOT Diameter 2.0 cm LV Ejection Fraction 2D Teich 55.5 % LV Ejection Fraction MOD 4C 63.6 % LV Ejection Fraction MOD 2C 54.9 % LV Ejection Fraction 2C AL 53.3 % LA Diameter 3.1 cm RA Systolic Volume 4C AL 22.6 ml RA Systolic Volume 4C MOD 22.4 ml LA Sys Volume AL 40.4 cm cubed LA Sys Volume Index AL 37.2 cm cubed/m squared Aorta at Sinotubular Diameter 2.3 cm IVC Diameter 1.5 cm M-MODE LA Ao Ratio MM 1.3 AV Cusp Separation MM 1.7 cm DOPPLER AV Peak Velocity 171.0 cm/s LVOT Peak Velocity 82.0 cm/s AV Area Cont Eq vti 1.6 cm squared AV Area Cont Eq pk 1.6 cm squared MV Peak Velocity 133.0 cm/s MV Area PHT 3.3 cm squared Mitral E to A Ratio 0.6 TV Peak Velocity 235.0 cm/s TR Peak Velocity 236.0 cm/s TR Peak Gradient 22.3 mmHg TR Mean Velocity 168.0 cm/s TR Mean Gradient 12.5 mmHg TR Velocity Time Integral 67.1 cm PV Peak Velocity 105.0 cm/s RV Ejection Time 0.3 s FINDINGS Left Ventricle Normal left ventricular size, systolic function and wall thickness, with no regional wall motion abnormalities. Left ventricular ejection fraction is estimated at 60 %. Grade I/IV diastolic dysfunction (abnormal relaxation filling pattern), normal to mildly elevated filling pressures. Right Ventricle Normal right ventricular size and systolic function. Right Atrium Normal right atrial size. Left Atrium Normal left atrial size. IA Septum Normal appearance of the interatrial septum. Mitral Valve Mildly thickened mitral valve. No mitral valve stenosis. Trace mitral valve regurgitation. Aortic Valve Moderate aortic valve calcification. No aortic valve stenosis. Trace aortic valve regurgitation. Tricuspid Valve Mild tricuspid valve regurgitation. Pulmonic Valve Normal pulmonic valve structure. No pulmonic valve stenosis or regurgitation. Pericardium No pericardial effusion. Aorta Normal diameter of the aortic root and ascending thoracic aorta. IVC Normal IVC diameter. CONCLUSIONS Normal left ventricular size, systolic function and wall thickness, with no regional wall motion abnormalities. Left ventricular ejection fraction is estimated at 60 %. Grade I/IV diastolic dysfunction (abnormal relaxation filling pattern), normal to mildly elevated filling pressures. Mildly thickened mitral valve. No mitral valve stenosis. Trace mitral valve regurgitation. Moderate aortic valve calcification. No aortic valve stenosis. Trace aortic valve regurgitation. There is no pericardial effusion. Right atrial pressure is around 5 mm of mercury. Muriel Burkett MD (Electronically Signed) Final Date: 12 June 2025 23:37 S
[2025-06-12] MEDS: ondansetron 2 mg/ML SDV 2 mL 4 MG IVP ×2 (10:08→18:24)
--- NOTE | 2025-06-12 13:20 | P.PN_ITS ---
Subjective 2 Subjective: Taylor Beaver is a 84 year old female with prior medical history of HTN, HLD, CAD, GERD, recurrent falls, esophageal mass, DM 2, back and hip pain, left hip replacement and knee joint, syncope, chest pain, laminectomy, and hypothyroidism presenting with complaints of chest pain. Patient reports central chest pain and pressure started yesterday and radiates to her arms bilaterally, more pronounced in her left arm. EMS was called today and she was transported to [facility] ED for assessment. And route, she was administered aspirin, morphine, nitro spray X2, Nitropaste, and Zofran. Pain improved prior to arrival. In the ED, vitals unremarkable with exception of O2 saturation 91% on room air. WBC 7.70, Hgb 11.10, PLT 194. BUN and creatinine WNL. AST/ALT/ALP WNL. Troponin 19 > 19.67 > 19.64. BNP WNL at 317. EKG; sinus rhythm with no acute abnormalities X2. CXR; no acute findings, chronic lung changes, see full results. Will admit to the hospitalist service for further evaluation and treatment. 06/10/25: Patient resting in bed and rep orts feeling somewhat improved but also has persistent complaints of intermittent chest pain 12/23. She reports that at times it goes from her left radial arm up and then bilateral arms. Her troponins have been steady around 20 and CXR shows no acute findings. She is on 2-3 L here in the ER and will get a bed soon. Patient reports new GI history from her approximately 2015 in [place]/or [facility] where she had a surgery that altered either her esophagus or stomach. She reports that this was to repair her symptoms of nausea, vomiting, and food intolerance. She reports that she was then seen by Dr. Shultz at [facility] for a scope and they could see the surgical intervention but advised there was an abnormality that could cause her discomfort. We would like to rule this GI finding out as part of her workup. I have requested outside records from [facility]. Pending. 06/11/2025; patient is resting comfortab ly. Dr. Mills with cardiology consulted is reviewing her case and patient might have a stress test on 06/13/2025. Medical records from [facility] have been received and reviewed for GI considerations as we complete chest pain rule out: History Patient has history of GERD, esophageal mass, throat cancer. 2014 Patient treated for achalasia surgi peter (Procedure done in [place]). Patient reports she did not have a good postop outcome. Spoke with [facility] gastroenterology reported it appeared she had achalasia status post Heller with what would be suspected to be a blown out esophagus but they did not have images to personally review. They noted that achalasia is known to have an increased complication rate of squamous cell carcinoma... suspected aspiration pneumonia secondary to achalasia with possible esophageal mass. Upper endoscopy was performed to further elucidate this and guide management. 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 - GI consulted for dysphagia, Dr. Drew [facility] - EGD; esophagus moderately torturous, f luid found in the middle third of the esophagus, the lumen of the middle third of the esophagus and lower third of the esophagus was mildly dilated, the exam of the esophagus was otherwise normal, 5 cm hiatal hernia present, exam of the stomach was otherwise normal, examined duodenum was normal. No specimens collected. Tolerated without complication.?Patient was not able to resume normal diet but instead a full liquid diet. No evidence of esophageal mass. Patient discharged to SNF with recommendation to follow-up outpatient - Patient had poor nutrition due to swal lowing issues for months, protein malnutrition, lethargy, weakness. 06/12/25: Patient resting comfortably in bed at time of interview. We talked extensively about her GI history and patient believes more now that this situation could be the source of her pain. Dr. Mills with cardiology saw her today where she still had complaints of atypical chest pain. She is still scheduled to have a stress test performed tomorrow. After that, it is likely that she will go home with follow-up to PCP and a new GI consult outpatient. Patient is amenable to this plan. Will continue to monitor as we await stress test result. Vitals/I&O/Wt Last Vital Signs Temp 97.4 F L 06/12/25 08:00 Pulse 70 06/12/25 16:28 Resp 18 06/12/25 15:13 BP 133/62 06/12/25 16:28 Pulse Ox 93 06/12/25 15:13 O2 Del Method Room Air 06/12/25 04:00 O2 Flow Rate 2 06/11/25 08:03 06/12/25 06/12/25 06/12/25 06:59 14:59 22:59 Intake Total Balance Weight last 48 hrs Weight 27.352 kg Weight 61.1 kg Weight 60.781 kg Physical Exam 2 Const: COMMON NORMALS: no acute distress and patient oriented x3 HENMT: COMMON NORMALS: normocephalic HEAD & SCALP: normocephalic Chest: COMMONS NORMALS: normal inspection of the chest Resp: COMMON NORMALS: normal respiratory effort, No retractions, No use of accessory muscles and clear to auscultation bilaterally AUSCULTATION: clear to auscultation bilaterally Cardio: COMMON NORMALS: regular rate, regular rhythm, S1 normal heart sound present and S2 normal heart sound present RATE: regular rate RHYTHM: r egular rhythm HEART SOUNDS: S1 normal heart sound present and S2 normal heart sound present GI: COMMON NORMALS: Normal to inspection, nondistended, normoactive bowel sounds present and Soft to palpation PALPATION: Yes Soft to palpation Extremity: COMMON NORMALS: capillary refill normal, no calf tenderness and no pedal edema Neuro: COMMON NORMALS: patient oriented x3 Psych: COMMON NORMALS: mental status grossly normal Data 06/12/25 02:53 06/12/25 02:53 A&P Assessment and plan 1. Chest pain: Troponins 19 > 19.67 > 19.64 CXR; no acute findings, chronic lung changes, see full results EKG; sinus rhythm with no acute abnormalities x2 Telemetry Pain management O2 91%, supplemental O2 to keep saturations greater than 92% Pulse oximetry Observation status Ruling out prior history of a complicated GI procedure in [place] Patient reports that she had a scope done at [facility] and they advised that there were abnormalities Awaiting outside records from OSH-information added to progress note from 06/11/2025 and documents will be scanned in by administration Plans for stress test tomorrow 06/13/[address] Mills 2. History of hypothyroidism: Continue home levothyroxine 3. History of depression: Continue home sertraline 4. History of hypertension: 130 systolic, stable Continue home carvedilol 5. Chronic pain: History of laminectomy and hip replacement Continue home gabapentin Pain management as needed PDMP PDMP Reviewed: Not Reviewed Attestations 2 Medical Necessity Statement*: Patient not expected to cross an additional 2 midnights. Stress test with cardiology planning for tomorrow, 06/13/2025. Diagnoses Chest pain R07.9 History of hypothyroidism Z86.39 History of depression Z86.59 History of hypertension Z86.79 Chronic pain G89.29
[2025-06-12] MEDS: pantoprazole 40 mg SDV IVP (16:28)
[2025-06-13] VITALS (8 sets, daily range): BP systolic 100–155; BP diastolic 55–114; PULSE 65–76; RESP 16–20; TEMP 36.2–36.5; O2SAT 92–96
--- NOTE | 2025-06-13 | ECG_ITS ---
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 The perfusion scan will be documented separately. DATA: Baseline heart rate was 62 beats per minute. Baseline blood pressure was 145/72 millimeters of mercury. Target heart rate was 134. Maximum heart rate achieved was [81]. which was 60% of the predicted target heart rate. Maximum blood pressure was 145/72 millimeters of mercury. The reason for ending the test was [completion of the protocol]. The patient did not experience any symptoms. ELECTROCARDIOGRAM: BASELINE: Sinus rhythm. Normal axis. Otherwise, no ST-T changes suggestive of ischemia noted. No arrhythmia noted. EXERCISE: After Lexiscan injection, no ST-T changes suggestive of ischemic noted. No arrhythmia noted. CONCLUSION: Please note due to baseline abnormality of the EKG specificity and sensitivity of the EKG portion of LexiScan MIBI stress test will be low 1. EKG not suggestive of ischemia 2. Lexiscan injection unremarkable. 3. Perfusion scan will be documented separately. Electronically Signed On 06-13-2025 13:48:22 MIME ARTIST by DESTINY LAAL [email or web address]
[2025-06-13] MEDS: nitroglycerin 1 gm/inch oint Pkt 1 INCH TOPICAL ×2 (04:53→17:36)
--- NOTE | 2025-06-13 08:10 | NMCV_ITS ---
NM chantal perf SPECT r/s* [id number] Taylor Beaver Age: 84 Gender: F : 1940 Exam Date: 06/13/2025 09:19 Ordering Phys: Marivel Daniels NP Technologist: RENAE Cha Exam Location: [facility] Indications: CP STRESS TEST Please see separate stress test report in [facility] for full findings IMAGE PROTOCOL Rest/Stress 1 Lexiscan Day Radiopharmaceutical Dose (mCi) Administration Site Administered by Rest: Tc-99m 10.7 IV Bessie Branch, CLINICAL DATA ABSTRACTOR Sestamibi Stress:Tc-99m 32.7 IV Bessie Moyagle, CLINICAL DATA ABSTRACTOR Sestamibi Rest: 13-Jun-2025 60 Discovery 630 Stress: 13-Jun-2025 30 Discovery 630 0.4mg Lexiscan. Supine position only as patient was unable to lay prone. SPECT RESULTS Technical Quality: Good Raw Data Analysis: Normal Image Corrections: No attenuation or motion correction applied Summed Stress Score: 6 Summed Rest Score: 5 Summed Difference Score: 1 PERFUSION FINDINGS Large area of fixed perfusion defect noted in basal to distal inferolateral wall suggestive of old myocardial infarction versus scarring with small area of reversibility suggestive of mild PB infarct ischemia. Small area of anteroapical reversibility suggestive of small area of ischemia. It is suggestive of old myocardial infarction in territory of left circumflex and very distal RCA. 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 Small area of inferoapical ischemia also noted. It is suggestive of lesion in circumflex territory. Muriel Burkett MD (Electronically Signed) Final Date: 13 June 2025 13:42 S
[2025-06-13] MEDS: LORazepam 2 mg/mL INJ 1 mL IVP (08:46)
--- NOTE | 2025-06-13 09:14 | PC.CHAP ---
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 [x] Patient/Family/Request visit [] Outpatient visit [] Follow-up visit [] Physician referral [] Code/Alert [] Routine visit [] Staff referral [] Actively dying [] Patient sleeping [] Family support [] [] Out of room [] Palliative care [] [] Receiving care in room [] Pre-surgical visit [] Trauma [] Long length of stay [] ICU visit [] Other: Relational/Emotional Strength [] Patient feels connected with others/family/visitors/staff [] Distress [] Loneliness/isolation [] Abandonment Spirituality of Patient [x] Person of Lorraine [] Attends Holiness of their [place] [x] Believes in Prayer [] Reads Bible or Zoroastrian materials [] There are Spiritual issues to be addressed Retail [employer] Professional 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 [x] Prayer [x] Active listening [] Non-anxious presence [] Spiritual/emotional support [] Crisis/trauma care [] Spiritual counseling [] Bereavement support [] Provided bereavement packet [x] Provided Bible/devotional materials [] Provided toy/stuffed animal, coloring book to patient or family member [] Provided Communion [] Anointing/[place] [] Salvation [x] Completed spiritual assessment [] Other: Impact on Illness or Injury [] Angry [] Fearful [] Anxious [] Often cries [] Exhaustion [] Unable to work [] Unable to attend rastafarian [] Unable to walk/stand [] Unable to read [] Unable to drive [] Unable to eat/drink [] Unable to sleep [] Unable to be with family [] Patient intubated [] Other: Summary Time spent with patient 15 min
--- NOTE | 2025-06-13 11:07 | P.PN_ITS ---
Subjective 2 Subjective: Taylor Beaver is a 84 year old female with prior medical history of HTN, HLD, CAD, GERD, recurrent falls, esophageal mass, DM 2, back and hip pain, left hip replacement and knee joint, syncope, chest pain, laminectomy, and hypothyroidism presenting with complaints of chest pain. Patient reports central chest pain and pressure started yesterday and radiates to her arms bilaterally, more pronounced in her left arm. EMS was called today and she was transported to [facility] ED for assessment. And route, she was administered aspirin, morphine, nitro spray X2, Nitropaste, and Zofran. Pain improved prior to arrival. In the ED, vitals unremarkable with exception of O2 saturation 91% on room air. WBC 7.70, Hgb 11.10, PLT 194. BUN and creatinine WNL. AST/ALT/ALP WNL. Troponin 19 > 19.67 > 19.64. BNP WNL at 317. EKG; sinus rhythm with no acute abnormalities X2. CXR; no acute findings, chronic lung changes, see full results. Will admit to the hospitalist service for further evaluation and treatment. 06/10/25: Patient resting in bed and rep orts feeling somewhat improved but also has persistent complaints of intermittent chest pain 12/23. She reports that at times it goes from her left radial arm up and then bilateral arms. Her troponins have been steady around 20 and CXR shows no acute findings. She is on 2-3 L here in the ER and will get a bed soon. Patient reports new GI history from her approximately 2015 in [place]/or [facility] where she had a surgery that altered either her esophagus or stomach. She reports that this was to repair her symptoms of nausea, vomiting, and food intolerance. She reports that she was then seen by Dr. Shultz at [facility] for a scope and they could see the surgical intervention but advised there was an abnormality that could cause her discomfort. We would like to rule this GI finding out as part of her workup. I have requested outside records from [facility]. Pending. 06/11/2025; patient is resting comfortab ly. Dr. Mills with cardiology consulted is reviewing her case and patient might have a stress test on 06/13/2025. Medical records from [facility] have been received and reviewed for GI considerations as we complete chest pain rule out: History Patient has history of GERD, esophageal mass, throat cancer. 2014 Patient treated for achalasia surgi peter (Procedure done in [place]). Patient reports she did not have a good postop outcome. Spoke with [facility] gastroenterology reported it appeared she had achalasia status post Heller with what would be suspected to be a blown out esophagus but they did not have images to personally review. They noted that achalasia is known to have an increased complication rate of squamous cell carcinoma... suspected aspiration pneumonia secondary to achalasia with possible esophageal mass. Upper endoscopy was performed to further elucidate this and guide management. 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 - GI consulted for dysphagia, Dr. Drew Thorpe [facility] - EGD; esophagus moderately torturous, f luid found in the middle third of the esophagus, the lumen of the middle third of the esophagus and lower third of the esophagus was mildly dilated, the exam of the esophagus was otherwise normal, 5 cm hiatal hernia present, exam of the stomach was otherwise normal, examined duodenum was normal. No specimens collected. Tolerated without complication.?Patient was not able to resume normal diet but instead a full liquid diet. No evidence of esophageal mass. Patient discharged to SNF with recommendation to follow-up outpatient - Patient had poor nutrition due to swal lowing issues for months, protein malnutrition, lethargy, weakness. 06/12/25: Patient resting comfortably in bed at time of interview. We talked extensively about her GI history and patient believes more now that this situation could be the source of her pain. Dr. Mills with cardiology saw her today where she still had complaints of atypical chest pain. She is still scheduled to have a stress test performed tomorrow. After that, it is likely that she will go home with follow-up to PCP and a new GI consult outpatient. Patient is amenable to this plan. Will continue to monitor as we await stress test result. 06/13/25: Patient resting comfortably in bed. She understands plan and is to have a stress test today. At discharge she will follow-up with GI outpatient to assess any discomfort being caused there. Possible discharge planning later today depending on results of stress test. Vitals/I&O/Wt Last Vital Signs Temp 97.2 F L 06/13/25 07:22 Pulse 76 06/13/25 10:35 Resp 18 06/13/25 07:22 BP 112/61 06/13/25 10:35 Pulse Ox 96 06/13/25 07:22 O2 Del Method Room Air 06/13/25 04:00 O2 Flow Rate 2 06/11/25 08:03 Weight last 48 hrs Weight 61.2 kg Weight 61.2 kg Weight 60 kg Physical Exam 2 Const: COMMON NORMALS: no acute distress and patient oriented x3 HENMT: COMMON NORMALS: normocephalic HEAD & SCALP: normocephalic Chest: COMMONS NORMALS: normal inspection of the chest Resp: COMMON NORMALS: normal respiratory effort, No retractions, No use of accessory muscles and clear to auscultation bilaterally AUSCULTATION: clear to auscultation bilaterally Cardio: COMMON NORMALS: regular rate, regular rhythm, S1 normal heart sound present and S2 normal heart sound present RATE: regular rate RHYTHM: r egular rhythm HEART SOUNDS: S1 normal heart sound present and S2 normal heart sound present GI: COMMON NORMALS: Normal to inspection, nondistended, normoactive bowel sounds present and Soft to palpation PALPATION: Yes Soft to palpation Extremity: COMMON NORMALS: capillary refill normal, no calf tenderness and no pedal edema Neuro: COMMON NORMALS: patient oriented x3 Psych: COMMON NORMALS: mental status grossly normal Data 06/12/25 02:53 06/12/25 02:53 A&P Assessment and plan 1. Chest pain: Troponins 19 > 19.67 > 19.64 CXR; no acute findings, chronic lung changes, see full results EKG; sinus rhythm with no acute abnormalities x2 Telemetry Pain management O2 91%, supplemental O2 to keep saturations greater than 92% Pulse oximetry Observation status Ruling out prior history of a complicated GI procedure in [place] Patient reports that she had a scope done at [facility] and they advised that there were abnormalities Awaiting outside records from [facility]-information added to progress note from 06/11/2025 and documents will be scanned in by administration Plans for stress test today, 06/13/[address] Mills 2. History of hypothyroidism: Continue home levothyroxine 3. History of depression: Continue home sertraline 4. History of hypertension: 130 systolic, stable Continue home carvedilol 5. Chronic pain: History of laminectomy and hip replacement Continue home gabapentin Pain management as needed PDMP PDMP Reviewed: Not Reviewed Attestations 2 Medical Necessity Statement*: Patient not expected to stay greater than 2 midnights. Patient expected to have a stress test today with possible discharge later today if findings are negative. Coding Level of Care Code Acute Code for Chg Fwd Diagnoses Chest pain R07.9 History of hypothyroidism Z86.39 History of depression Z86.59 History of hypertension Z86.79 Chronic pain G89.29
--- NOTE | 2025-06-13 11:31 | PM.PN ---
Subjective Subjective: Patient is still having on and off chest discomfort that chest sharp pain to the left side of her chest at times. She is getting her stress test this morning. Currently has Nitropaste. Vitals/I&O/Wt Last Vital Signs Temp 97.2 F L 06/13/25 07:22 Pulse 68 06/13/25 11:08 Resp 16 06/13/25 11:08 BP 145/66 06/13/25 11:08 Pulse Ox 92 06/13/25 11:08 O2 Del Method Room Air 06/13/25 04:00 O2 Flow Rate 2 06/11/25 08:03 Weight last 48 hrs Weight 134 lb 14.766 oz Weight 134 lb 14.766 oz Weight 132 lb 4.438 oz Physical Exam Narrative: General: No apparent distress HENMT: normoceophalic Neck: No carotid bruit bilaterally Muskuloskeletal: Full ROM Respiratory: Normal respiratory effort, clear to auscultation bilaterally throughout all lung suero, no use of accessory muscles Cardio: No JVD, regular rate, regular rhythm, S1 S2 normal, no murmurs, peripheral pulses 2+ radial palpated bilaterally GI: Normal to inspection, nondistended Extremities: Full ROM, normal, normal capillary refill, no cyanosis or edema Neuro: Alert and oriented x4, no focal motor deficits Psych: Affect normal Skin: No rashes or lesions noted, no wounds Data 06/12/25 02:53 06/12/25 02:53 A&P Assessment and plan 1. Chest pain: 2. History of CAD (coronary artery disease): 3. History of hyperlipidemia: 4. History of hypertension: Plan: Echo with normal EF witho no regional wall motion abnormalities. No severe valvular abnormalities. Stress test showed large area of old NC with mild quincy-infarct ischemia summed difference score 1. This is a low risk stress test. Chest discomfort is atypical in nature. At this time, can be discharged home with medical therapy from cardiology standpoint including home coreg. F/U in the clinic in 1-2 weeks. Will avoid isosorbide at this time as patient has hypotension at times. May benefit from further GI workup in the future. PDMP PDMP Reviewed: Not Reviewed Attestations Medical Necessity Statement*: Deferred to primary Coding Level of Care Code Acute Code for [facility] Fwd Diagnoses Chest pain R07.9 History of CAD (coronary artery disease) Z86.79 History of hyperlipidemia Z86.39 History of hypertension Z86.79
--- NOTE | 2025-06-13 15:44 | PM.DCS ---
Discharge Providers Date of Admission: 06/10/25 16:37 Date of Discharge: June 13, 2025 Attending Provider at Admission: Juan Parisi MD Attending Provider at Discharge: JUAN JOSÉ Cox, STREET PHOTOGRAPHER Primary Care Provider: JOSAFAT Ojeda Diagnoses at Discharge Discharge Diagnosis 1. Chest pain: 2. History of CAD (coronary artery disease): 3. History of hyperlipidemia: 4. History of hypertension: Other Information Additional DC diagnoses/information: 1. Chest pain: Troponins 19 > 19.67 > 19.64 CXR; no acute findings, chronic lung changes, see full results EKG; sinus rhythm with no acute abnormalities x2 Telemetry Pain management O2 91%, supplemental O2 to keep saturations greater than 92% Pulse oximetry Observation status Ruling out prior history of a complicated GI procedure in [place] Patient reports that she had a scope done at [facility] and they advised that there were abnormalities Awaiting outside records from OSH-information added to progress note from 06/11/2025 and documents will be scanned in by administration Stress test done today. Patient cleared for DC per Cardiology Will follow up with Cardiology and GI outpatient 2. History of hypothyroidism: Continue home levothyroxine 3. History of depression: Continue home sertraline 4. History of hypertension: 130 systolic, stable Continue home carvedilol 5. Chronic pain: History of laminectomy and hip replacement Continue home gabapentin Pain management as needed Reason for Visit Reason for Visit: chest pain Hospital Course Hospital Course Taylor Beaver is a 84 year old female with prior medical history of HTN, HLD, CAD, GERD, recurrent falls, esophageal mass, DM 2, back and hip pain, left hip replacement and knee joint, syncope, chest pain, laminectomy, and hypothyroidism presenting with complaints of chest pain. Patient reports central chest pain and pressure started yesterday and radiates to her arms bilaterally, more pronounced in her left arm. EMS was called today and she was transported to [facility] ED for assessment. And route, she was administered aspirin, morphine, nitro spray X2, Nitropaste, and Zofran. Pain improved prior to arrival. In the ED, vitals unremarkable with exception of O2 saturation 91% on room air. WBC 7.70, Hgb 11.10, PLT 194. BUN and creatinine WNL. AST/ALT/ALP WNL. Troponin 19 > 19.67 > 19.64. BNP WNL at 317. EKG; sinus rhythm with no acute abnormalities X2. CXR; no acute findings, chronic lung changes, see full results. Will admit to the hospitalist service for further evaluation and treatment. 06/10/25: Patient resting in bed and reports feeling somewhat improved but also has persistent complaints of intermittent chest pain /10. She reports that at times it goes from her left radial arm up and then bilateral arms. Her troponins have been steady around 20 and CXR shows no acute findings. She is on 2-3 L here in the ER and will get a bed soon. Patient reports new GI history from her approximately 2015 in [place]/or [facility] where she had a surgery that altered either her esophagus or stomach. She reports that this was to repair her symptoms of nausea, vomiting, and food intolerance. She reports that she was then seen by Dr. Shultz at [facility] for a scope and they could see the surgical intervention but advised there was an abnormality that could cause her discomfort. We would like to rule this GI finding out as part of her workup. I have requested outside records from [facility]. Pending. 06/11/2025; patient is resting comfortably. Dr. Mills with cardiology consulted is reviewing her case and patient might have a stress test on 06/13/2025. Medical records from [facility] have been received and reviewed for GI considerations as we complete chest pain rule out:History Patient has history of GERD, esophageal mass, throat cancer. 2014 Patient treated for achalasia surgically (Procedure done in [place]). Patient reports she did not have a good postop outcome. Spoke with [facility] gastroenterology reported it appeared she had achalasia status post Heller with what would be suspected to be a blown out esophagus but they did not have images to personally review. They noted that achalasia is known to have an increased complication rate of squamous cell carcinoma... suspected aspiration pneumonia secondary to achalasia with possible esophageal mass. Upper endoscopy was performed to further elucidate this and guide management. 08/26/2024 [facility] admission S/T bacterial pneumonia and dysphagia - Echocardiogram; EF 55 to 60% grade 1 diastolic dysfunction, mild to moderate AR, mild aortic stenosis, mild MR - Modified barium swallow; premature spillage with thin liquids, negative for aspiration or penetration, minimal vallecular residue, poor absent motility of distal esophagus with dilatation -CT neck; diffuse circumferential thickening of thoracic esophagus progressively worsened lower thoracic esophagus extending to the GE junction with suspected intraluminal mass/high-grade stricture, no mediastinal or hilar lymphadenopathy, patchy opacities with interstitial thickening in the left upper and lower lobes noted. - GI consulted for dysphagia, Dr. Drew Nava - EGD; esophagus moderately torturous, fluid found in the middle third of the esophagus, the lumen of the middle third of the esophagus and lower third of the esophagus was mildly dilated, the exam of the esophagus was otherwise normal, 5 cm hiatal hernia present, exam of the stomach was otherwise normal, examined duodenum was normal. No specimens collected. Tolerated without complication.?Patient was not able to resume normal diet but instead a full liquid diet. No evidence of esophageal mass. Patient discharged to SNF with recommendation to follow-up outpatient - Patient had poor nutrition due to swallowing issues for months, protein malnutrition, lethargy, weakness. 06/12/25: Patient resting comfortably in bed at time of interview. We talked extensively about her GI history and patient believes more now that this situation could be the source of her pain. Dr. Mills with cardiology saw her today where she still had complaints of atypical chest pain. She is still scheduled to have a stress test performed tomorrow. After that, it is likely that she will go home with follow-up to PCP and a new GI consult outpatient. Patient is amenable to this plan. Will continue to monitor as we await stress test result. 06/13/25: Patient resting comfortably in bed. Patient underwent stress test today and was cleared from a cardiac standpoint to discharge to home. She will follow-up a in cardiac clinic outpatient. At discharge she will also follow-up with GI outpatient to assess any discomfort being caused there. Physical Exam Narrative: General: No apparent distress HENMT: normoceophalic Neck: No carotid bruit bilaterally Muskuloskeletal: Full ROM Respiratory: Normal respiratory effort, clear to auscultation bilaterally throughout all lung suero, no use of accessory muscles Cardio: No JVD, regular rate, regular rhythm, S1 S2 normal, no murmurs, peripheral pulses 2+ radial palpated bilaterally GI: Normal to inspection, nondistended Extremities: Full ROM, normal, normal capillary refill, no cyanosis or edema Neuro: Alert and oriented x4, no focal motor deficits Psych: Affect normal Skin: No rashes or lesions noted, no wounds Discharge Data Studies Completed and Pending Completed Studies During Hospitalization Category Date Time Status Cardiac Stress Test MIBI [Sestamibi Stress Test Request Exams 06/13/25 08:10 Completed ] Routine XR chest 1V portable [id number] Stat Exams 06/09/25 11:59 Completed NM chantal perf SPECT r/s* [id number] Routine Nuc Med 06/13/25 08:10 Completed CV. echo complete* [id number] Routine Ultrasound 06/12/25 10:03 Completed Radiology Impressions Chest X-Ray 06/09/25 11:59 IMPRESSION: 1. No acute findings 2. Chronic lung changes are noted Laboratory Results WBC 5.74 10^3/uL (3.29-11.43) 06/12/25 02:53 RBC 3.39 10^6/uL (3.85-5.65) L 06/12/25 02:53 Hgb 9.60 g/dL (11.27-16.99) L 06/12/25 02:53 Hct 31.6 % (36-47) L 06/12/25 02:53 MCV 93.2 fl (85-98) 06/12/25 02:53 MCH 28.3 pg (27-33) 06/12/25 02:53 MCHC 30.4 g/dL (30-55) 06/12/25 02:53 RDW 18.3 % (12.1-15.1) H 06/12/25 02:53 Plt Count 201 10^3/cmm (157-399) 06/12/25 02:53 MPV 10.8 fL (7.4-10.4) H 06/12/25 02:53 Neut % (Auto) 39.5 % 06/12/25 02:53 Lymph % (Auto) 46.0 % 06/12/25 02:53 Blackford % (Auto) 9.1 % 06/12/25 02:53 Eos % (Auto) 4.9 % 06/12/25 02:53 Baso % (Auto) 0.3 % 06/12/25 02:53 Neut # (Auto) 2.27 10^3/uL (1.8-7.7) 06/12/25 02:53 Lymph # (Auto) 2.6 10^3/uL (0.8-4.8) 06/12/25 02:53 Blackford # (Auto) 0.5 10^3/uL (0.2-0.9) 06/12/25 02:53 Eos # (Auto) 0.3 10^3/uL (0.0-0.8) 06/12/25 02:53 Baso # (Auto) 0.0 10^3/uL (0.0-0.1) 06/12/25 02:53 Nucleated RBC % (auto) 0 % 06/12/25 02:53 Nucleated RBCs # 0.0 /100WBC 06/12/25 02:53 PT 12.90 SECONDS (12.1-14.9) 06/09/25 12:19 INR 0.91 (0.8-1.2) 06/09/25 12:19 APTT 29.4 SECONDS (23.9-36.7) 06/09/25 12:19 Sodium 141 mmol/L (136-145) 06/12/25 02:53 Potassium 3.4 mmol/L (3.5-5.1) L 06/12/25 02:53 Chloride 103 mmol/L (98-107) 06/12/25 02:53 Carbon Dioxide 28 mmol/L (22-29) 06/12/25 02:53 Anion Gap 13.4 (5-19) 06/12/25 02:53 BUN 19 mg/dL (8-23) 06/12/25 02:53 Creatinine 1.0 mg/dL (0.5-0.9) H 06/12/25 02:53 GFR Calculation Not Reportable 06/12/25 02:53 Glucose 145 mg/dL (65-115) H 06/12/25 02:53 Estimat Average Glucose 117 06/10/25 06:52 Hemoglobin A1c 5.7 % (4.0-6.0) 06/10/25 06:52 Calculated Osmolality 297 mOsm/kg (285-295) H 06/12/25 02:53 Calcium 8.4 mg/dL (8.5-10.5) L 06/12/25 02:53 Phosphorus 3.0 mg/dL (2.5-4.5) 06/10/25 06:52 Magnesium 2.1 mg/dL (1.7-2.3) 06/10/25 06:52 Total Bilirubin 0.5 mg/dL (0.15-1.2) 06/09/25 12:19 AST 15 U/L (0-32) 06/09/25 12:19 ALT 9 U/L (0-33) 06/09/25 12:19 Alkaline Phosphatase 78 U/L (35-105) 06/09/25 12:19 Troponin T 5th Gen ng/L 16 ng/L (0-10) H 06/12/25 02:53 Troponin T Baseline 19 ng/L (0-10) H 06/09/25 12:19 Troponin T 60 Minute 19.67 ng/L (0-10) H 06/09/25 13:19 Delta Troponin T 0.67 ABS# (0-10) 06/09/25 13:19 Troponin T Hi Sens 6Hr 19.64 ng/L (0-10) H 06/09/25 18:09 Troponin T Hi Sens 6Hr Delta 0.64 ng/L (0-12) 06/09/25 18:09 NT-Pro-B Natriuret Pep 317 pg/mL (0-450) 06/09/25 12:19 Total Protein 6.7 g/dL (6.6-8.7) 06/09/25 12:19 Albumin 4.0 g/dL (3.5-5.2) 06/09/25 12:19 Globulin 2.7 g/dL (1.3-4.6) 06/09/25 12:19 Lipase 20 U/L (13-60) 06/09/25 12:19 Vitals Last Vital Signs Temp 97.2 F L 06/13/25 07:22 Pulse 67 06/13/25 15:34 Resp 18 06/13/25 15:34 BP 131/74 06/13/25 15:34 Pulse Ox 93 06/13/25 15:34 O2 Del Method Room Air 06/13/25 04:00 O2 Flow Rate 2 06/11/25 08:03 Discharge Plan Discharge Patient Disposition: Home Condition: Stable Prescriptions: Continued (DME) cockup splint See Rx Instructions .Route .MEDSUPPLY Qty: 1 0RF Rx Instructions: As directed pantoprazole 40 mg tablet,delayed release (DR/EC) 40 mg PO QAM sertraline 100 mg tablet 200 mg PO DAILY trazodone 50 mg tablet 50 mg PO BEDTIME PRN (Reason: Sleep) levothyroxine 112 mcg tablet 112 mcg PO QAM gabapentin 100 mg Capsule 100 mg PO TID PRN (Reason: Pain) ondansetron 4 mg Tablet,Disintegrating 4 mg PO Q6H PRN (Reason: Nausea And Vomiting) tramadol 50 mg Tablet 50 mg PO Q8H PRN (Reason: Pain) nitroglycerin 0.4 mg Tablet, Sublingual 0.4 mg SUBLINGUAL Q5M PRN (Reason: Chest Pain) 30 Days Qty: 30 0RF Rx Instructions: do not exceed 3 doses per episode carvedilol 3.125 mg tablet 3.125 mg PO BID 30 Days Qty: 60 0RF Rx Instructions: must administer with a meal/food lisinopril 20 mg Tablet 20 mg PO DAILY Qty: 30 0RF acetaminophen 500 mg Tablet 1,000 mg PO Q6H PRN (Reason: Pain) Discharge Order = DC NOW: Discharge Order (Routine); Ordered 06/13/25 Ordered By: Geno De León Referrals: Marivel Daniels NP [Nurse Practitioner, Cardiology] - 7-10 days Drew Nava MD [Referring, Gastroenterology] - 2 weeks Referral Note: Referral for assessment of GI symptoms related [place]. Please see extensive history noted in 05/2025 inpatient encounter. Kori Hernandez FNP [Primary Care Provider] - 06/15/25 11:20 am Referral Note: Patient being referred to gastroenterology outpatient. She also needs to follow-up with PCP. Discharge Diet: Advance as tolerated Discharge Activity: Resume usual activity and Increase activity as tolerated Patient Instructions: Opioid Safety, Patient Portal & [facility] Instructions Activity Restrictions/Additional Instructions: Please follow-up with gastroenterology in the outpatient setting. Return to nearest emergency department if symptoms return or worsen. Discharge Attestations Time Spent in Discharge Care*: greater than 30 min Quality Metrics Clinical Quality Measures [ No reported AMI, CVA or VTE this stay] Coding Level of Care Code 41713 Diagnoses Chest pain R07.9 History of CAD (coronary artery disease) Z86.79 History of hyperlipidemia Z86.39 History of hypertension Z86.79
--- NOTE | 2025-06-13 15:57 | XRR_ITS ---
PROCEDURE INFORMATION: Exam: XR Right Forearm Exam date and time: 06/13/2025 4:30 PM Age: 84 years old Clinical indication: Injury or trauma; Fall; Blunt trauma (contusions or hematomas); Arm, lower; Right TECHNIQUE: Imaging protocol: Radiologic exam of the right forearm. Views: 2 views. COMPARISON: No relevant prior studies available. FINDINGS: Bones/joints: There are findings of subchondral cyst formation in the lunate. There is calcification of the triangular fibrocartilage compatible with degenerative changes sclerosis narrowing radiocarpal joint suggested. Soft tissues: Vascular calcification present soft tissues. XR/XR forearm RT 2V [id number] IMPRESSION: No acute fracture or dislocation Findings of osteoarthritis of the wrist.
--- NOTE | 2025-06-13 15:57 | XRR_ITS ---
PROCEDURE INFORMATION: Exam: XR Right Shoulder Exam date and time: 06/13/2025 4:30 PM Age: 84 years old Clinical indication: Injury or trauma; Fall; Blunt trauma (contusions or hematomas); Shoulder; Right TECHNIQUE: Imaging protocol: Radiologic exam of the right shoulder. Views: 2 or more views. COMPARISON: CR (CHEST, ) 06/09/2025 12:19 PM FINDINGS: Bones/joints: There is narrowing degenerative changes of the right AC joint with bony proliferative changes sclerosis. There is no acute fracture or dislocation Lungs: Calcified granuloma present right upper lobe. Soft tissues: Normal. XR/XR shoulder RT min 2V* [id number] IMPRESSION: No acute fracture or dislocation. Degenerative changes right AC joint
--- NOTE | 2025-06-13 16:11 | PC.NURSE ---
Upon last round on patient at 1535 patient was resting in bed, call light in reach, bed locked and in lowest position. At 1545 patient was found by RT Ophelia in bathroom on the ground. Nurse alerted of fall. Present in the room was Miguel RN, Etta, RN, Kristen, MICHELA, Oleksandr, US, and Ophelia RT. Patient has redness to the right shoulder as well as an abrasion and a skin tear on the right forearm. No redness or contusions to the head. Vital signs obtained and all WNL. Patient placed back in bed with bed alarm on. Patient will be transferred closer to the nurses station to be closely monitored. Physician notified at 1559 and orders received for RT shoulder and RT forearm xray.
[2025-06-13] MEDS: pantoprazole 40 mg SDV IVP (17:35)
[2025-06-14] VITALS (7 sets, daily range): BP systolic 114–171; BP diastolic 59–110; PULSE 67–77; RESP 12–22; TEMP 36.7; O2SAT 90–96; BMI 22.3
[2025-06-14] MEDS: nitroglycerin 1 gm/inch oint Pkt 1 INCH TOPICAL (06:44)
--- NOTE | 2025-06-14 06:47 | ECG_ITS ---
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 Measurements Intervals [place] Rate: 77 P: 91 ID: [id number] QRS: 53 QRSD: 132 T: 66 QT: 407 QTc: 462 Interpretive Statements SINUS RHYTHM POSSIBLE LEFT ATRIAL ENLARGEMENT [-0.1mV P-WAVE IN V1/V2] RIGHT BUNDLE BRANCH BLOCK [120+ ms QRS DURATION, UPRIGHT V1, 40+ ms S IN I/aVL/V4/V5/V6] Compared to ECG 06/09/2025 18:06:14 No significant changes Electronically Signed On 06-16-2025 16:13:38 CRITICAL CARE PARAMEDIC by Antonio Leon M.D. [email or web address]
[2025-06-14] MEDS: morphine 4 mg/mL SDV 1 mL 2 MG IVP (07:13)
[2025-06-14] MEDS: ondansetron 2 mg/ML SDV 2 mL 4 MG IVP (07:17)
--- NOTE | 2025-06-14 07:56 | PC.NURSE ---
Patient stated that she was having chest pain. Patient was in 10/10 pain. Nitro paste applied and EKG was performed. Dr Croft wasw notified and new order for morphine 2mg q4h prn was placed.
--- NOTE | 2025-06-14 09:20 | P.DS_ITS ---
<Statement entered by Vitor Gama MD - 06/15/25 20:31> Patient case reviewed. Agree with findings as outlined below. Discharge Providers Date of Admission: 06/10/25 16:37 Date of Discharge: June 14, 2025 Attending Provider at Admission: Juan Parisi MD Attending Provider at Discharge: Geno De León PEARL [employer]INGER, [employer]PONSIBILITY LIAISON Primary Care Provider: JOSAFAT Ojeda Diagnoses at Discharge Discharge Diagnosis 1. Chest pain: 2. History of CAD (coronary artery disease): 3. History of hyperlipidemia: 4. History of hypertension: Other Information Additional DC diagnoses/information: 1. Chest pain: 2. History of CAD (coronary artery disease): 3. History of hyperlipidemia: 4. History of hypertension: Other Information Additional DC diagnoses/information: 1. Chest pain: Troponins 19 > 19.67 > 19.64 CXR; no acute findings, chronic lung changes, see full results EKG; sinus rhythm with no acute abnormalities x2 Telemetry Pain management O2 91%, supplemental O2 to keep saturations greater than 92% Pulse oximetry Observation status Ruling out prior history of a complicated GI procedure in [place] Patient reports that she had a scope done at [facility] and they advised that there were abnormalities Awaiting outside records from OSH-information added to progress note from 08/12/2024 and documents will be scanned in by administration Stress test done today. Patient cleared for DC per Cardiology Will follow up with Cardiology and GI outpatient 2. History of hypothyroidism: Continue home levothyroxine 3. History of depression: Continue home sertraline 4. History of hypertension: 130 systolic, stable Continue home carvedilol 5. Chronic pain: History of laminectomy and hip replacement Continue home gabapentin Pain management as needed 6. Fall Mechanical fall yesterday at discharge No head injury or loss of consciousness Imaging of right shoulder and arm both negative Patient now ready for discharge. Reason for Visit Reason for Visit: chest pain Hospital Course Hospital Course Taylor Beaver is a 84 year old female with prior medical history of HTN, HLD, CAD, GERD, recurrent falls, esophageal mass, DM 2, back and hip pain, left hip replacement and knee joint, syncope, chest pain, laminectomy, and hypothyroidism presenting with complaints of chest pain. Patient reports central chest pain and pressure started yesterday and radiates to her arms bilaterally, more pronounced in her left arm. EMS was called today and she was transported to [facility] ED for assessment. And route, she was administered aspirin, morphine, nitro spray X2, Nitropaste, and Zofran. Pain improved prior to arrival. In the ED, vitals unremarkable with exception of O2 saturation 91% on room air. WBC 7.70, Hgb 11.10, PLT 194. BUN and creatinine WNL. AST/ALT/ALP WNL. Troponin 19 > 19.67 > 19.64. BNP WNL at 317. EKG; sinus rhythm with no acute abnormalities X2. CXR; no acute findings, chronic lung changes, see full results. Will admit to the hospitalist service for further evaluation and treatment. 06/10/25: Patient resting in bed and reports feeling somewhat improved but also has persistent complaints of intermittent chest pain 12/23. She reports that at times it goes from her left radial arm up and then bilateral arms. Her troponins have been steady around 20 and CXR shows no acute findings. She is on 2-3 L here in the ER and will get a bed soon. Patient reports new GI history from her approximately 2015 in [place]/or [facility] where she had a surgery that altered either her esophagus or stomach. She reports that this was to repair her symptoms of nausea, vomiting, and food intolerance. She reports that she was then seen by Dr. Shultz at [facility] for a scope and they could see the surgical intervention but advised there was an abnormality that could cause her discomfort. We would like to rule this GI finding out as part of her workup. I have requested outside records from [facility]. Pending. 06/11/2025; patient is resting comfortably. Dr. Mills with cardiology consulted is reviewing her case and patient might have a stress test on 06/13/2025. Medical records from [facility] have been received and reviewed for GI considerations as we complete chest pain rule out:History Patient has history of GERD, esophageal mass, throat cancer. 2014 Patient treated for achalasia surgically (Procedure done in [place]). Patient reports she did not have a good postop outcome. Spoke with [facility] gastroenterology reported it appeared she had achalasia status post Heller with what would be suspected to be a blown out esophagus but they did not have images to personally review. They noted that achalasia is known to have an increased complication rate of squamous cell carcinoma... suspected aspiration pneumonia secondary to achalasia with possible esophageal mass. Upper endoscopy was performed to further elucidate this and guide management. 08/26/2024 [facility] admission S/T bacterial pneumonia and dysphagia - Echocardiogram; EF 55 to 60% grade 1 diastolic dysfunction, mild to moderate AR, mild aortic stenosis, mild MR - Modified barium swallow; premature spillage with thin liquids, negative for aspiration or penetration, minimal vallecular residue, poor absent motility of distal esophagus with dilatation -CT neck; diffuse circumferential thickening of thoracic esophagus progressively worsened lower thoracic esophagus extending to the GE junction with suspected intraluminal mass/high-grade stricture, no mediastinal or hilar lymphadenopathy, patchy opacities with interstitial thickening in the left upper and lower lobes noted. - GI consulted for dysphagia, Dr. Drew Nava - EGD; esophagus moderately torturous, fluid found in the middle third of the esophagus, the lumen of the middle third of the esophagus and lower third of the esophagus was mildly dilated, the exam of the esophagus was otherwise normal, 5 cm hiatal hernia present, exam of the stomach was otherwise normal, examined duodenum was normal. No specimens collected. Tolerated without complication.?Patient was not able to resume normal diet but instead a full liquid diet. No evidence of esophageal mass. Patient discharged to SNF with re commendation to follow-up outpatient - Patient had poor nutrition due to swallowing issues for months, protein malnutrition, lethargy, weakness. 06/12/25: Patient resting comfortably in bed at time of interview. We talked extensively about her GI history and patient believes more now that this situation could be the source of her pain. Dr. Mills with cardiology saw her today where she still had complaints of atypical chest pain. She is still scheduled to have a stress test performed tomorrow. After that, it is likely that she will go home with follow-up to PCP and a new GI consult outpatient. Patient is amenable to this plan. Will continue to monitor as we await stress test result. 06/13/25: Patient resting comfortably in bed. Patient underwent stress test today and was cleared from a cardiac standpoint to discharge to home. She will follow-up a in cardiac clinic outpatient. At discharge she will also follow-up with GI outpatient to assess any discomfort being caused there. 06/14/25: Patient was ready for discharge after stress test yesterday and was getting ready when she sustained a fall in the bathroom. Fall was unwitnessed but she reports it was mechanical, tripping over her briefs as she pulled them up. There was injury to her right arm; a skin tear and shoulder bruise. Denied head injury or any loss of consciousness. We went ahead and got a shoulder x- ray and forearm x-ray to be certain there were no fractures. Both images showed no acute fractures or dislocations. We also continue to watch her 1 more night secondary to this incident. Patient is now ready for discharge with follow-up to cardiac and GI outpatient. Physical Exam Narrative: General: No apparent distress HENMT: normoceophalic Neck: No carotid bruit bilaterally Muskuloskeletal: Full ROM Respiratory: Normal respiratory effort, clear to auscultation bilaterally throughout all lung suero, no use of accessory muscles Cardio: No JVD, regular rate, regular rhythm, S1 S2 normal, no murmurs, peripheral pulses 2+ radial palpated bilaterally GI: Normal to inspection, nondistended Extremities: Full ROM, normal, normal capillary refill, no cyanosis or edema Neuro: Alert and oriented x4, no focal motor deficits Psych: Affect normal Skin: No rashes or lesions noted, no wounds Discharge Data Studies Completed and Pending Completed Studies During Hospitalization Category Date Time Status Cardiac Stress Test MIBI [Sestamibi Stress Test Request Exams 06/13/25 08:10 Completed ] Routine XR chest 1V portable [id number] Stat Exams 06/09/25 11:59 Completed XR forearm RT 2V [id number] Routine Exams 06/13/25 15:57 Completed XR shoulder RT min 2V* [id number] Routine Exams 06/13/25 15:57 Completed NM chantal perf SPECT r/s* [id number] Routine Nuc Med 06/13/25 08:10 Completed CV. echo complete* [id number] Routine Ultrasound 06/12/25 10:03 Completed Radiology Impressions Chest X-Ray 06/09/25 11:59 IMPRESSION: 1. No acute findings 2. Chronic lung changes are noted Forearm X-Ray 06/13/25 15:57 IMPRESSION: No acute fracture or dislocation Findings of osteoarthritis of the wrist. Shoulder X-Ray 06/13/25 15:57 IMPRESSION: No acute fracture or dislocation. Degenerative changes right AC joint Laboratory Results WBC 5.74 10^3/uL (3.29-11.43) 06/12/25 02:53 RBC 3.39 10^6/uL (3.85-5.65) L 06/12/25 02:53 Hgb 9.60 g/dL (11.27-16.99) L 06/12/25 02:53 Hct 31.6 % (36-47) L 06/12/25 02:53 MCV 93.2 fl (85-98) 06/12/25 02:53 MCH 28.3 pg (27-33) 06/12/25 02:53 MCHC 30.4 g/dL (30-55) 06/12/25 02:53 RDW 18.3 % (12.1-15.1) H 06/12/25 02:53 Plt Count 201 10^3/cmm (157-399) 06/12/25 02:53 MPV 10.8 fL (7.4-10.4) H 06/12/25 02:53 Neut % (Auto) 39.5 % 06/12/25 02:53 Lymph % (Auto) 46.0 % 06/12/25 02:53 [place] % (Auto) 9.1 % 06/12/25 02:53 Eos % (Auto) 4.9 % 06/12/25 02:53 Baso % (Auto) 0.3 % 06/12/25 02:53 Neut # (Auto) 2.27 10^3/uL (1.8-7.7) 06/12/25 02:53 Lymph # (Auto) 2.6 10^3/uL (0.8-4.8) 06/12/25 02:53 [place] # (Auto) 0.5 10^3/uL (0.2-0.9) 06/12/25 02:53 Eos # (Auto) 0.3 10^3/uL (0.0-0.8) 06/12/25 02:53 Baso # (Auto) 0.0 10^3/uL (0.0-0.1) 06/12/25 02:53 Nucleated RBC % (auto) 0 % 06/12/25 02:53 Nucleated RBCs # 0.0 /100WBC 06/12/25 02:53 PT 12.90 SECONDS (12.1-14.9) 06/09/25 12:19 INR 0.91 (0.8-1.2) 06/09/25 12:19 APTT 29.4 SECONDS (23.9-36.7) 06/09/25 12:19 Sodium 141 mmol/L (136-145) 06/12/25 02:53 Potassium 3.4 mmol/L (3.5-5.1) L 06/12/25 02:53 Chloride 103 mmol/L (98-107) 06/12/25 02:53 Carbon Dioxide 28 mmol/L (22-29) 06/12/25 02:53 Anion Gap 13.4 (5-19) 06/12/25 02:53 BUN 19 mg/dL (8-23) 06/12/25 02:53 Creatinine 1.0 mg/dL (0.5-0.9) H 06/12/25 02:53 GFR Calculation Not Reportable 06/12/25 02:53 Glucose 145 mg/dL (65-115) H 06/12/25 02:53 Estimat Average Glucose 117 06/10/25 06:52 Hemoglobin A1c 5.7 % (4.0-6.0) 06/10/25 06:52 Calculated Osmolality 297 mOsm/kg (285-295) H 06/12/25 02:53 Calcium 8.4 mg/dL (8.5-10.5) L 06/12/25 02:53 Phosphorus 3.0 mg/dL (2.5-4.5) 06/10/25 06:52 Magnesium 2.1 mg/dL (1.7-2.3) 06/10/25 06:52 Total Bilirubin 0.5 mg/dL (0.15-1.2) 06/09/25 12:19 AST 15 U/L (0-32) 06/09/25 12:19 ALT 9 U/L (0-33) 06/09/25 12:19 Alkaline Phosphatase 78 U/L (35-105) 06/09/25 12:19 Troponin T 5th Gen ng/L 16 ng/L (0-10) H 06/12/25 02:53 Troponin T Baseline 19 ng/L (0-10) H 06/09/25 12:19 Troponin T 60 Minute 19.67 ng/L (0-10) H 06/09/25 13:19 Delta Troponin T 0.67 ABS# (0-10) 06/09/25 13:19 Troponin T Hi Sens 6Hr 19.64 ng/L (0-10) H 06/09/25 18:09 Troponin T Hi Sens 6Hr Delta 0.64 ng/L (0-12) 06/09/25 18:09 NT-Pro-B Natriuret Pep 317 pg/mL (0-450) 06/09/25 12:19 Total Protein 6.7 g/dL (6.6-8.7) 06/09/25 12:19 Albumin 4.0 g/dL (3.5-5.2) 06/09/25 12:19 Globulin 2.7 g/dL (1.3-4.6) 06/09/25 12:19 Lipase 20 U/L (13-60) 06/09/25 12:19 Vitals Last Vital Signs Temp 98.0 F 06/14/25 08:00 Pulse 71 06/14/25 08:00 Resp 22 H 06/14/25 08:00 BP 116/59 06/14/25 08:00 Pulse Ox 90 06/14/25 08:00 O2 Del Method Room Air 06/14/25 03:24 O2 Flow Rate 2 06/11/25 08:03 Discharge Plan Discharge Patient Disposition: Home Condition: Stable Prescriptions: Continued (DME) cockup splint See Rx Instructions .Route .MEDSUPPLY Qty: 1 0RF Rx Instructions: As directed pantoprazole 40 mg tablet,delayed release (DR/EC) 40 mg PO QAM sertraline 100 mg tablet 200 mg PO DAILY trazodone 50 mg tablet 50 mg PO BEDTIME PRN (Reason: Sleep) levothyroxine 112 mcg tablet 112 mcg PO QAM gabapentin 100 mg Capsule 100 mg PO TID PRN (Reason: Pain) ondansetron 4 mg Tablet,Disintegrating 4 mg PO Q6H PRN (Reason: Nausea And Vomiting) tramadol 50 mg Tablet 50 mg PO Q8H PRN (Reason: Pain) nitroglycerin 0.4 mg Tablet, Sublingual 0.4 mg SUBLINGUAL Q5M PRN (Reason: Chest Pain) 30 Days Qty: 30 0RF Rx Instructions: do not exceed 3 doses per episode carvedilol 3.125 mg tablet 3.125 mg PO BID 30 Days Qty: 60 0RF Rx Instructions: must administer with a meal/food lisinopril 20 mg Tablet 20 mg PO DAILY Qty: 30 0RF acetaminophen 500 mg Tablet 1,000 mg PO Q6H PRN (Reason: Pain) Discharge Order = DC NOW: Discharge Order (Routine); Ordered 06/13/25 Ordered By: Geno De León Referrals: Marivel Daniels NP [Nurse Practitioner, Cardiology] - 7-10 days Drew Nava MD [Referring, Gastroenterology] - 2 weeks Referral Note: Referral for assessment of GI symptoms related [place]. Please see extensive history noted in 05/2025 inpatient encounter. Kori Hernandez FNP [Primary Care Provider] - 06/15/25 11:20 am Referral Note: Patient being referred to gastroenterology outpatient. She also needs to follow-up with PCP. Discharge Diet: Advance as tolerated Discharge Activity: Resume usual activity and Increase activity as tolerated Patient Instructions: Opioid Safety, Patient Portal & [facility] Instructions Activity Restrictions/Additional Instructions: Please follow-up with gastroenterology in the outpatient setting. Return to nearest emergency department if symptoms return or worsen. Discharge Attestations Time Spent in Discharge Care*: greater than 30 min Quality Metrics Clinical Quality Measures [ No reported AMI, CVA or VTE this stay] Coding Level of Care Code 40476 Other Coding Information Procedural care (documented in this note), Procedural care (documented in another note) and Prolonged care (total time indicated above or notated here) Diagnoses Chest pain R07.9 History of CAD (coronary artery disease) Z86.79 History of hyperlipidemia Z86.39 History of hypertension Z86.79
--- NOTE | 2025-06-14 09:51 | PC.NURSE ---
Referral paperwork has been faxed to [facility] and message left.
== END 2025-06-14 13:30 | disposition home or self-care (01) | DRG 313 ==
LOC: ER 14:06 → ER IP 14:45 → CSU 06-10 14:15
PROVIDERS: Admitting Provider Internal Medicine; Emergency Provider Emergency Medicine; PCP Nurse Practitioner Family; Visit Provider Clinical Nurse Specialist Acute Care
DX: R07.89 Other chest pain (principal); I25.10 Atherosclerotic heart disease of native coronary artery without angina pectoris; E78.5 Hyperlipidemia, unspecified; I10 Essential (primary) hypertension; E03.9 Hypothyroidism, unspecified; G89.29 Other chronic pain; Z96.642 Presence of left artificial hip joint; Z96.652 Presence of left artificial knee joint; W01.0XXA Fall on same level from slipping, tripping and stumbling without subsequent striking against object, initial encounter; K21.9 Gastro-esophageal reflux disease without esophagitis; E11.9 Type 2 diabetes mellitus without complications; M54.9 Dorsalgia, unspecified; I08.0 Rheumatic disorders of both mitral and aortic valves; I95.9 Hypotension, unspecified; F32.A Depression, unspecified; S40.811A Abrasion of right upper arm, initial encounter; Y92.231 Patient bathroom in hospital as the place of occurrence of the external cause; K44.9 Diaphragmatic hernia without obstruction or gangrene; I25.2 Old myocardial infarction; Z79.891 Long term (current) use of opiate analgesic; Z79.899 Other long term (current) drug therapy; Z95.5 Presence of coronary angioplasty implant and graft; Z98.1 Arthrodesis status; Z87.01 Personal history of pneumonia (recurrent); Z87.442 Personal history of urinary calculi
CPT/HCPCS: 36415; 71045; 73030; 73090; 78452; 80048; 80053; 83036; 83690; 83735; 83880; 84100; 84484; 85025; 85610; 85730; 93005; 93017; 93306; 96375; 99285; A9500; G0378; J2060; J2270; J2405; J2470; J2785; J9999